=== PATIENT | male | born 1950 | race Caucasian/White ===

== ENCOUNTER 2017-07-05 08:00 | Inpatient (IN) | payer OTHER, MEDICARE ==
[~2017-07-05] VITALS: Ht 170.2 cm; Wt 83.7 kg
[2017-07-31] MEDS ORDERED: GABA100C4 PO (11:57)
[2017-07-31] MEDS ORDERED: BUME2TAB PO (11:57)
[2017-07-31] MEDS ORDERED: CARV12.5 PO (11:57)
[2017-07-31] MEDS ORDERED: ARMO60TA PO (11:57)
[2017-07-31] MEDS ORDERED: NOVO7030P2 SQ (11:57)
[2017-07-31] MEDS ORDERED: PANT20TA2 PO (11:57)
[2017-07-31] MEDS ORDERED: COQ-100C5 PO (11:57)
[2017-07-31] MEDS ORDERED: POTA-243 PO (11:57)
[2017-08-02] MEDS ORDERED: SODIUM CHLORID 0.9% 500 ML IV PRN (08:15)
[2017-08-02] MEDS ORDERED: METOPROLOL TARTRATE 25 MG TAB PO PRN (08:15)
[2017-08-02] MEDS ORDERED: CHLORHEXIDINE GLUCONATE 2 % 1 PACK (2 CLOTHS) TOPICAL PRN (08:15)
[2017-08-02] MEDS ORDERED: LACTATED RINGER'S 1000 ML IV PRN (08:15)
[2017-08-02] MEDS ORDERED: INSULIN HUMAN REGULAR 1,000 UNITS/10 ML VIAL SQ PRN (08:15)
[2017-08-02] MEDS ORDERED: POVIDONE IODINE 5% (ANTISEPSIS KIT) 4 APPLICATIONS EACH NARE PRN (08:15)
[2017-08-02] MEDS ORDERED: IOHEXOL 300 MG/ML 50 ML BTL (for RAD DIAG) OTHER ONE (08:32)
[2017-08-02] MEDS ORDERED: PROTAMINE SULFATE 50 MG/5 ML VIAL ONE (08:33)
[2017-08-02] MEDS ORDERED: HEPARIN SODIUM - IV 10,000 UNITS/10 ML VIAL ONE (08:33)
[2017-08-02] MEDS ORDERED: BUPIVACAINE HCL PF 0.5% 30 ML VIAL ONE (08:33)
[2017-08-02] MEDS ORDERED: HEPARIN-NS/PF INJ 1,000 ML ONE (08:34)
[2017-08-02] MEDS ORDERED: THROMBIN (TOPICAL) 20,000 UNIT SPRAY KIT ONE (08:34)
[2017-08-02] MEDS ORDERED: LIDOCAINE HCL 1% PF 5 ML AMPULE OTHER ONE (08:35)
[2017-08-02] MEDS ORDERED: PROPOFOL 200 MG/20 ML AMP IV ONE (08:35)
[2017-08-02] MEDS ORDERED: PHENYLEPH/NS 1000 MCG/10 ML SYR IV ONE (08:35)
[2017-08-02] MEDS ORDERED: SODIUM CHLOR 0.9% 250 ML INJ 250 ML IV ONE (08:35)
[2017-08-02] MEDS ORDERED: DEXAMETHASONE SOD PHOS 4 MG/ML VIAL IV ONE (08:35)
[2017-08-02] MEDS ORDERED: GLYCOPYRROLATE 1 MG/5 ML SYRINGE IV PUSH ONE (08:35)
[2017-08-02] MEDS ORDERED: SODIUM CHLORID 0.9% 500 ML INJ 500 ML IV ONE (08:35)
[2017-08-02] MEDS ORDERED: ONDANSETRON HCL 4 MG/2 ML VIAL IV PUSH ONE (08:35)
[2017-08-02] MEDS ORDERED: NEOSTIGMINE 3 MG/3 ML SYR IV ONE (08:35)
[2017-08-02] MEDS ORDERED: ROCURONIUM INJ 50 MG/5 ML SYRINGE IV PUSH ONE (08:35)
[2017-08-02] MEDS ORDERED: ePHEDrine/NS 25 MG/5 ML SYR IV ONE (08:35)
--- NOTE | 2017-08-02 08:54 | HHI.HP ---
History of Present Illness Chief Complaint: L UE tissue loss, AVF History of Present Illness 67 yo male with ESRD getting HD MWF via L UE access (brachiobasilic) and L 3rd digit tissue loss. Per him and his , has had recent trouble with HD in terms of flow rates. Past/Family/Social History Past Medical History ESRD DM ESRD CHF CAD Past Surgical History CABG with mitral valve pacer L BB AVF Social History nonsmoker Family History [place] Home Medications Reported Medications Coenzyme Q10 (Ubidecarenone) (Coq-10 Tr) 100 Mg Cap, 200 MG PO DAILY 07/31/17 Insulin Human Isophane-Regular 70-30 Inj (Novolin 70-30 Inj) 1,000 Unit/10 Ml Vial, 12 UNITS SQ BIDAC for Blood Sugar Management, ML 0 Refills 07/31/17 Thyroid ([place] Thyroid) 60 Mg Tab, 60 MG PO BID for Thyroid Supplement, #30 TAB 0 Refills 07/31/17 Pantoprazole (Pantoprazole) 20 Mg Tab, 20 MG PO DAILY for Reflux, #30 TAB 0 Refills 07/31/17 Bumetanide (Bumetanide) 2 Mg Tab, 2 MG PO DAILY, TAB 0 Refills 07/31/17 Carvedilol (Coreg) 12.5 Mg Tab, 12.5 MG PO BID, #60 TAB 0 Refills 07/31/17 Gabapentin (Gabapentin) 100 Mg Cap, 100 MG PO TID, #90 CAP 0 Refills 07/31/17 Discontinued Reported Medications Potassium Chloride ER (Klor-Con 10) 10 Meq Tab, 20 MEQ PO DAILY for Electrolyte Replacement, #1 TAB 0 Refills 07/31/17 Alpha-Lipoic Acid (Thioctic Ac (Lipoic Acid) 150 Mg Cap, 300 MG PO BID 02/12/13 B-Complex W/ Folic Acid (B Complex) Tab, 1 CAP PO DAILY 02/12/13 Cefazolin (Ancef) 2 Gm Margie, 2 GM IV BID 02/12/13 Hydrocodone/Acetaminophen 7.5 mg/325 mg (Hydrocodone/Acetaminophen 7.5 mg/325 mg ) 7.5 Mg/325 Mg Tab, 1 TAB PO Q4HPRN 01/30/13 Ferrous Sulfate (Ferrous Sulfate) 325 Mg Tab, 325 MG PO DAILY 01/30/13 Carvedilol (Coreg) 12.5 Mg Tab, 25 MG PO BID 01/03/13 Thyroid ([place] Thyroid) 15 Mg Tab, 60 MG OR DAILY 01/03/13 Potassium Chloride Microencaps (Klor-Con M20) 20 Meq Tab, 20 MEQ PO DAILY Y 01/03/13 Tramadol Hcl (Tramadol Hcl) 50 Mg Tab, 50 MG PO Q4-6HPRN 01/03/13 Gabapentin (Gabapentin) 300 Mg Cap, 300 MG PO QID 01/03/13 Insulin Human Lispro (Humalog Insulin Supplemental Scale) 100 Units/Ml Inj, 1 UNITS .XX SLIDING SCALE TID 01/03/13 Insulin Human NPH (Novolin N) 100 Units/Ml Inj, 20 UNITS SQ BIDAC, ML 01/03/13 Bumetanide (Bumex) 1 Mg Tab, 1 MG PO PRN 01/03/13 Coenzyme Q10 (Ubidecarenone) (Coenzyme Q-10 High Potenc) 200 Mg Cap, 200 MG PO DAILY 01/03/13 Losartan Potassium (Cozaar) 100 Mg Tab, 100 MG PO DAILY 01/03/13 Coded Allergies: corn (Unverified Allergy, Mild, 05/29/17) egg (Unverified Allergy, Mild, 08/02/17) wheat (Unverified Allergy, Mild, 05/29/17) adhesive (Unverified Adverse Reaction, Severe, SKIN BREAKDOWN/ULCERS, ) Uncoded Allergies: MSG (Allergy, Intermediate, bowel problems, 08/02/17) Review of Systems Constitutional: DENIES: Fever Cardiovascular: DENIES: Chest pain Physical Exam Vitals/I&O Date Time Temp Pulse Resp B/P (MAP) Pulse Ox O2 Delivery O2 Flow Rate FiO2 08/02/17 07:50 98.6 62 18 151/61 (91) 100 Neuro: awake, alert, [place] HEENT: NC/AT Neck: no JVD Heart: reg rate, no M Lungs: clear B Abdomen: soft, NT Vascular: L UE weak thrill and healed medial UE incision L 3rd digit tissue loss Laboratory Tests Test 08/02/17 08:00 Potassium Level 5.5 Caprini VTE Risk Assessment Caprini VTE Risk Assessment: Mod/High Risk (score >= 2) Caprini Risk Assessment Model Point Value = 1 Point Value = 2 Point Value = 3 Point Value = 5 Age 41-60 Minor surgery BMI > 25 kg/m2 Swollen legs Varicose veins or History of unexplained or recurrent spontaneous Oral contraceptives or hormone replacement Sepsis (< 1 month) Serious lung disease, including pneumonia (< 1 month) Abnormal pulmonary function Acute myocardial infarction Congestive heart failure (< 1 month) History of inflammatory bowel disease Medical patient at bed rest Age 61-74 Arthroscopic surgery Major open surgery (> 45 min) Laparoscopic surgery (> 45 min) Malignancy Confined to bed (> 72 hours) Immobilizing plaster cast Central venous access Age >= 75 History of VTE Family history of VTE Factor V Leiden Prothrombin [id number] Lupus anticoagulant Anticardiolipin antibodies Elevated serum homocysteine Heparin-induced thrombocytopenia Other congenital or acquired thrombophilia Stroke (< 1 month) Elective arthroplasty Hip, pelvis, or leg fracture Acute spinal cord injury (< 1 month) Prophylaxis Regimen Total Risk Factor Score Risk Level Prophylaxis Regimen 0-1 Low Early ambulation 2 Moderate Order ONE of the following: *Sequential Compression Device (SCD) *Heparin 5000 units SQ BID 3-4 Higher Order ONE of the following medications: *Heparin 5000 units SQ TID *Enoxaparin/Lovenox 40 mg SQ daily (WT < 150 kg, CrCl > 30 mL/min) *Enoxaparin/Lovenox 30 mg SQ daily (WT < 150 kg, CrCl > 10-29 mL/min) *Enoxaparin/Lovenox 30 mg SQ BID (WT < 150 kg, CrCl > 30 mL/min) AND/OR *Sequential Compression Device (SCD) 5 or more Highest Order ONE of the following medications: *Heparin 5000 units SQ TID (Preferred with Epidurals) *Enoxaparin/Lovenox 40 mg SQ daily (WT < 150 kg, CrCl > 30 mL/min) *Enoxaparin/Lovenox 30 mg SQ daily (WT < 150 kg, CrCl > 10-29 mL/min) *Enoxaparin/Lovenox 30 mg SQ BID (WT < 150 kg, CrCl > 30 mL/min) AND *Sequential Compression Device (SCD) Assessment and Plan Plan Likely access-related hand ischemia Weak access I talked with the patient and his - given weak thrill and unreliable access , may not warrant DRIL. Will start with angiogram of L UE. Will discuss results with patient and plan next stage (definitive surgery) then. To O Discharge Planning maybe later today [phone] Issa Jansen MD Aug 02, 2017 08:54
[2017-08-02] MEDS ORDERED: VANCOMYCIN HCL 1000 MG VIAL ONE (09:06)
[2017-08-02] MEDS ORDERED: IOHEXOL IV ONE (10:07)
--- NOTE | 2017-08-02 10:24 | HHI.PR ---
Immediate Post Op Note Procedure Date: Aug 02, 2017 Pre Op Diagnosis: Failing L UE AVF, access-related hand ischemia Post Op Diagnosis: same Surgeon: Issa Jansen Iron Bender(s): none Procedure: Thoracic aortogram w/ L UE angiogram Findings: 1. Proximal high grade stenosis 2. reasonable forearm vasculature Additional Information: Pt needs access revision with basilic transposition and DRIL. Discussed with and will plan for Sunday. Needs HD catheter prior. Complications: none Specimen(s) removed: none Estimated blood loss: 10mL Anesthesia: General Drains: None Fluids: 550mL IVF Patient to: PACU Patient Condition: Good Implant/Devices: SEE IMPLANT LOG (if applicable) Date/Time of Procedure: SEE SURGICAL CARE RECORD Issa Jansen MD Aug 02, 2017 10:24
--- NOTE | 2017-08-02 11:13 | MP ---
cc: ISSA JANSEN MD DATE OF SURGERY 08/02/2017 PREOPERATIVE DIAGNOSIS Access-related hand ischemia, failing fistula left upper extremity. POSTOPERATIVE DIAGNOSIS Access-related hand ischemia, failing fistula left upper extremity. PROCEDURE Thoracic aortogram with left upper extremity angiogram. ATTENDING SURGEON MEDICATIONS Issa Jansen MD ANESTHESIA General. INDICATIONS Mr. Hernandez is a gentleman who has a left brachiobasilic non-transposed fistula that has a weak thrill and the patient has access-related hand ischemia with an ulcer on the tip of his third digit. He is taken to the operating room for angiographic evaluation and definitive treatment. There is no prior catheter-based imaging available for my review. DESCRIPTION OF PROCEDURE Informed consent was obtained from the patient. He was taken to the operating room, placed supine on the operating room table and appropriate time-out was taken to insure the patient's identity, the operative site and the planned procedure. 1 gram of vancomycin was initiated prior to the skin incision and will be discontinued after a single preoperative dose. Everyone in the room agreed with the time-out and we proceeded. His bilateral groins and left arm were prepped and draped. A 21-gauge micropuncture needle was used to access the right common femoral artery. This was exchanged using Seldinger technique through a micropuncture sheath through which a 0.035 Glidewire was introduced. The micropuncture sheath was exchanged for a 5-[place] sheath. The patient was systemically heparinized with 3000 units of IV heparin. The Glidewire was advanced to the ascending aorta and pigtail catheter was placed over this. Thoracic aortogram was obtained. The Glidewire was reintroduced and the pigtail catheter was exchanged for a vertebral catheter and the vertebral catheter was used to selectively catheterize the left subclavian, axillary and proximal brachial arteries. The left upper extremity aortogram was obtained. The wire, catheter and sheath were removed and the groin was closed with AngioSeal. INTERPRETATION OF IMAGES The patient has a patent three-vessel arch with patent axillary, subclavian and brachial arteries. There is a brachial artery-based fistula which has stented outflow but no outflow stenosis. At the proximal aspect of the fistula there was a high-grade stenosis. The patient's forearm has ulnar artery dominance. MD RHONDA Dueñas/SSB /10:32 AM /10:52 AM
[2017-08-02 12:00] VITALS: BP 106/57; PULSE 60; RESP 20; TEMP 97; O2SAT 94
[2017-08-02] MEDS ORDERED: DO NOT ADM ANY ANTICOAGULANT DRUGS PRN (13:00)
== END 2017-08-02 13:03 | disposition home or self-care (01) | DRG 314 ==
LOC: HSDI 08-02 07:19
PROVIDERS: ADMIT Surgery; ATTEND Surgery
PROC: B31J1ZZ Fluoroscopy of Left Upper Extremity Arteries using Low Osmolar Contrast (ICD-10-PCS; 2017-08-02)
PROC: B3101ZZ Fluoroscopy of Thoracic Aorta using Low Osmolar Contrast (ICD-10-PCS; principal; 2017-08-02 08:56)
DX: T82.898A Other specified complication of vascular prosthetic devices, implants and grafts, initial encounter (principal); N18.6 End stage renal disease; E11.22 Type 2 diabetes mellitus with diabetic chronic kidney disease; L98.499 Non-pressure chronic ulcer of skin of other sites with unspecified severity; I25.10 Atherosclerotic heart disease of native coronary artery without angina pectoris; I50.9 Heart failure, unspecified; Z95.1 Presence of aortocoronary bypass graft; Y82.8 Other medical devices associated with adverse incidents
CPT/HCPCS: 75710; 82948; 84132; C1769; J1100; J1644; J2370; J2405; J2710; J2720; J3010; J3370; J7040; J7050; Q9967

== ENCOUNTER → 2017-07-31 | Outpatient (CLI) | payer OTHER ==
[~2017-07-31] MED LIST: ARMO60TA PO; B COTAB3 PO; BUME1TAB PO; BUME2TAB PO; CARV12.5 PO; CEFA2SOL IV; COEN200C4 PO; COQ-100C5 PO; CORE12.5 PO; COZA100T PO; FERR324T4 PO; GABA100C4 PO; GABA300C3 PO; HUMALOGP; HYDR-3580 PO; KLOR20TA6 PO; LIPO150C2 PO; NOVO7030P2 SQ; NOVONP2 SQ; PANT20TA2 PO; POTA-243 PO; THYR15 OR; TRAM50TA PO
[2017-07-31 13:02] LABS: HEMATOCRIT 30.7 % (39.0-51.0); MEAN CELL VOLUME 91.6 FL (80.0-100.0); MEAN CORPUSCULAR HEMOGLOBIN 29.8 PG (27.0-34.0); MEAN CORPUSCULAR HGB CONC 32.6 % (32.0-36.0); PLATELET COUNT 156 TH/MM3 (150-450); RED BLOOD COUNT 3.35 MIL/MM3 (4.50-5.90); RED CELL DISTRIBUTION WIDTH 17.7 % (11.6-17.2); REVIEW FLAG FINAL; WHITE BLOOD COUNT 7.2 TH/MM3 (4.0-11.0)
--- NOTE | 2017-07-31 13:08 | RADRPT ---
EXAM DATE/TIME: 07/31/2017 12:26 [place] COMPARISON: CHEST PA & LAT, June 09, 2012, 9:10. INDICATIONS : Evaluate for pneumonia, pneumothorax, or communicable disease. Pre op for upper extremity revasculari zation. MEDICAL HISTORY : Myocardial infarction. Congestive heart failure. Renal disease. SURGICAL HISTORY : CABG. Pacemaker. Renal stents. Mitral valve replacement. Removal of sternal wires ENCOUNTER: Initial ACUITY: 1 day PAIN SCORE: 0/10 LOCATION: chest FINDINGS: PA and obvious of the chest show blunting of the right costophrenic angle with consolidation involvin g the basilar segments of the right lower lobe. This is new from the prior study. Left lung is clear. Left-sided pacing device noted. Heart is mildly enlarged. CONCLUSION: 1. Right pleural effusion with right lower lobe consolidation. Iván Clarke Jr., MD on July 31, 2017 at 13:06 Board Certified Radiologist. This report was verified electronically.
[2017-07-31 13:11] LABS: BICARBONATE 21.8 MEQ/L (21.0-32.0); POTASSIUM 5.5 MEQ/L (3.5-5.1)
[2017-07-31 13:15] LABS: APTT (PATIENT) 31.1 SEC (24.3-30.1); PROTHROMBIN TIME - PATIENT 11.4 SEC (9.8-11.6)
--- NOTE | 2017-08-01 14:24 | EKG ---
Date Performed: 07/31/2017 Time Performed: 11:41:32 PTAGE: 67 years EKG: ELECTRONIC VENTRICULAR PACEMAKER ABNORMAL RHYTHM ECG PREVIOUS TRACING : 02/13/2013 13.08 DOCTOR: Levi Machado Interpretating Date/Time 08/01/2017 14:19:03
== END ==
LOC: CPRE 11:08
PROVIDERS: ATTEND Surgery
DX: Z01.810 Encounter for preprocedural cardiovascular examination (principal); N18.6 End stage renal disease; T82.898A Other specified complication of vascular prosthetic devices, implants and grafts, initial encounter; Z01.812 Encounter for preprocedural laboratory examination; Z01.818 Encounter for other preprocedural examination; X58.XXXA Exposure to other specified factors, initial encounter
CPT/HCPCS: 36415; 71020; 80048; 85027; 85610; 85730; 86850; 86900; 86901; 93005

== ENCOUNTER 2017-08-07 06:26 | Inpatient (IN) | payer OTHER, MEDICARE ==
[~2017-08-07] VITALS: Ht 170.2 cm; Wt 84.5 kg
[2017-08-07] VITALS (7 sets, daily range): BP systolic 101–106; BP diastolic 50–56; PULSE 59–74; RESP 16–18; TEMP 97.1–98.1; O2SAT 89–100
[~2017-08-07 06:26] MED LIST changes: -B COTAB3 PO; -BUME1TAB PO; -CEFA2SOL IV; -COEN200C4 PO; -CORE12.5 PO; -COZA100T PO; -FERR324T4 PO; -GABA300C3 PO; -HUMALOGP; -HYDR-3580 PO; -KLOR20TA6 PO; -LIPO150C2 PO; -NOVONP2 SQ; -POTA-243 PO; -THYR15 OR; -TRAM50TA PO
[2017-08-07] MEDS ORDERED: POVIDONE IODINE 5% (ANTISEPSIS KIT) 4 APPLICATIONS EACH NARE PRN (07:00)
[2017-08-07] MEDS ORDERED: METOPROLOL TARTRATE 25 MG TAB PO PRN (07:00)
[2017-08-07] MEDS ORDERED: CHLORHEXIDINE GLUCONATE 2 % 1 PACK (2 CLOTHS) TOPICAL PRN (07:00)
[2017-08-07] MEDS ORDERED: LACTATED RINGER'S 1000 ML IV PRN (07:00)
[2017-08-07] MEDS ORDERED: INSULIN HUMAN REGULAR 1,000 UNITS/10 ML VIAL SQ PRN (07:00)
[2017-08-07] MEDS ORDERED: SODIUM CHLORID 0.9% 500 ML IV PRN (07:00)
[2017-08-07] MEDS ORDERED: PROTAMINE SULFATE 50 MG/5 ML VIAL ONE (07:00)
[2017-08-07] MEDS ORDERED: HEPARIN SODIUM - IV 10,000 UNITS/10 ML VIAL ONE (07:00)
[2017-08-07] MEDS ORDERED: HEPARIN-NS/PF INJ 500 ML ONE (07:01)
[2017-08-07] MEDS ORDERED: BUPIVACAINE HCL PF 0.5% 30 ML VIAL ONE (07:01)
[2017-08-07] MEDS ORDERED: THROMBIN (TOPICAL) 20,000 UNIT SPRAY KIT ONE (07:01)
--- NOTE | 2017-08-07 08:44 | PD.VS.PN ---
Pre-operative Note Pre-operative diagnosis: 1. Failing L UE access 2. L UE access-related hand ischemia Planned procedure: 1. L UE Access revision 2. L UE DRIL Interval History: Since the angiogram , he has undergone placement of a tunneled catheter and regular HD. No other changes. Labs: Laboratory Results Test 08/07/17 07:15 Potassium Level 5.3 MEQ/L (3.5-5.1) Blood: T&S Imaging: Reviewed. Plan for L UE Access revision and DRIL. Orders: NPO VANC 1g IV OCTOR Post-operative destination: PACU then CPCU Operative site marked: Yes Consent: Informed consent has been obtained from Hola Hernandez. I have explained the procedure in detail and discussed the risks, benefits, and potential complications. All questions have been answered. Patient contact information: [phone] Issa Jansen MD Aug 07, 2017 08:44
[2017-08-07] MEDS ORDERED: GLUCAGON 1 MG/ML VIAL OTHER PRN (08:45)
[2017-08-07] MEDS ORDERED: DEXTROSE 50% IN WATER 50 ML VIAL(D50) IV PUSH PRN (08:45)
[2017-08-07] MEDS ORDERED: MORPHINE SULFATE 4 MG/ML INJ IV PUSH PRN (08:45)
[2017-08-07] MEDS ORDERED: HYDROmorphone HCL 2 MG TAB PO PRN (08:45)
[2017-08-07] MEDS ORDERED: COENZYME Q10 200 MG PO SCH (09:00)
[2017-08-07] MEDS ORDERED: VANCOMYCIN HCL 1000 MG VIAL ONE (09:01)
[2017-08-07 09:14] LABS: BICARBONATE 22.6 MEQ/L (21.0-32.0); POTASSIUM 5.3 MEQ/L (3.5-5.1)
[2017-08-07] MEDS: ASPIRIN 325 MG TAB PO SCH (11:00)
[2017-08-07] MEDS: INSULIN ASPART SUPPLEMENTAL SCALE SQ SCH ×2 (12:00→21:00)
--- NOTE | 2017-08-07 12:16 | HHI.PR ---
cc: Gerry Johnson MD Immediate Post Op Note Procedure Date: Aug 07, 2017 Pre Op Diagnosis: 1. Failing L UE AVF 2. Access related hand ischemia Post Op Diagnosis: 1. Failing L UE AVF 2. Access-related hand ischemia Surgeon: Issa Jansen Access Nurse(s): none Procedure: 1. AVF revision (transposition of AVF) 2. DRIL with R GSV Findings: Good thrill after AVF Strong Doppler signals radial and ulnar Complications: none Specimen(s) removed: none for pathology Estimated blood loss: 150mL Anesthesia: General Drains: None Fluids: 300mL IVF Patient to: PACU Patient Condition: Good Date/Time of Procedure: SEE SURGICAL CARE RECORD Issa Jansen MD Aug 07, 2017 12:16
[2017-08-07] MEDS ORDERED: DO NOT ADM ANY ANTICOAGULANT DRUGS PRN (12:29)
[2017-08-07] MEDS ORDERED: *ONDANSETRON 4 MG VIAL PERIprocedural Use ONLY ONE (12:45)
[2017-08-07] MEDS: GABAPENTIN 100 MG CAP PO SCH ×3 (13:00→20:18)
[2017-08-07] MEDS: CARVEDILOL 12.5 MG TAB PO SCH ×2 (14:11→21:00)
[2017-08-07] MEDS: PANTOPRAZOLE SOD 20 MG DELAYED RELEASE TAB PO SCH (14:12)
[2017-08-07] MEDS: BUMETANIDE 1 MG TAB PO SCH (14:12)
[2017-08-07] MEDS ORDERED: ONDANSETRON HCL 4 MG/2 ML VIAL IV PUSH PRN ×2 (14:15→17:45)
[2017-08-07] MEDS ORDERED: SODIUM CHLOR 0.9% 1000 ML INJ 1,000 ML OTHER PRN ×2 (17:32)
[2017-08-07] MEDS ORDERED: SODIUM CHLOR 0.9% 1000 ML INJ 1,000 ML IV PRN (17:32)
--- NOTE | 2017-08-07 17:32 | PD.CONS ---
HPI Service Nephrology Consult Requested By Dr. Jansen Reason for Consult ESRD on HD Primary Care Physician Meir Oliver, DO History of Present Illness The patient is a 67 yo [place] male who came in to this facility for L AVF revision with Dr. Jansen 2/ to Steal Syndrome. Is a dialysis patient in [place] whose regular HD is MWF. He did HD yesterday. Seen during HD and seems to be tolerating well. Using RIJ PermCath. BP is marginal at 93/56, but says this is his typical BP. PMHx includes DM, HTN, CHF s/p AICD, CAD. Says he does receive Zemplar and Epogen during his HD sessions. (Linda Baltazar) Review of Systems Constitutional: COMPLAINS OF: Fatigue (Linda Baltazar) Past Family Social History Allergies: Coded Allergies: egg (Unverified Allergy, Mild, 08/07/17) adhesive (Unverified Adverse Reaction, Severe, SKIN BREAKDOWN/ULCERS, ) Uncoded Allergies: MSG (Allergy, Intermediate, bowel problems, 08/02/17) Past Medical History ESRD on HD MWF Steal Syndrome DM HTN Anemia of Renal Disease CHF CAD Past Surgical History L AVF placement with revision CABG x4 vessel Mitral valvuloplasty AICD placement Reported Medications Coq-10 Tr (Coenzyme Q10 (Ubidecarenone)) 100 Mg Cap 200 Mg PO DAILY Novolin 70-30 Inj (Insulin Human Isoph/Insulin Regular) 1,000 Unit/10 Ml Vial 12 Units SQ BIDAC [place] Thyroid (Thyroid) 60 Mg Tab 60 Mg PO BID Pantoprazole (Pantoprazole Sodium) 20 Mg Tab 20 Mg PO DAILY Bumetanide 2 Mg Tab 2 Mg PO DAILY Coreg (Carvedilol) 12.5 Mg Tab 12.5 Mg PO BID Gabapentin 100 Mg Cap 100 Mg PO TID Active Ordered Medications Current Medications Medications (Trade) Dose Ordered Sig/Renny Route Start Time Stop Time Status Last Admin Lactated Ringer's 1,000 ml @ 30 mls/hr Q24H PRN IV 08/07/17 07:00 08/10/17 06:59 08/07/17 07:40 Sodium Chloride 500 ml @ 30 mls/hr [id number] PRN IV 08/07/17 07:00 08/10/17 06:59 (Lopressor) 25 mg RETAIL LOSS PREVENTION INVESTIGATOR PRN PO 08/07/17 07:00 08/10/17 06:59 (Betadine 5% Antisepsis Kit) 1 applic RETAIL LOSS PREVENTION INVESTIGATOR PRN EACH NARE 08/07/17 07:00 08/10/17 06:59 08/07/17 07:50 (Chlorhexidine 2% Cloth) 3 pack RETAIL LOSS PREVENTION INVESTIGATOR PRN TOPICAL 08/07/17 07:00 08/10/17 06:59 (NovoLIN R INJ) See Protocol Table ... RETAIL LOSS PREVENTION INVESTIGATOR PRN SQ 08/07/17 07:00 08/10/17 06:59 (Roxicodone) 5 mg Q4H PRN PO 08/07/17 08:45 08/07/17 14:12 (Dilaudid) 2 mg Q4H PRN PO 08/07/17 08:45 (Morphine Inj) 2 mg Q1H PRN IV PUSH 08/07/17 08:45 (Heparin Inj) 5,000 units Q8H SQ 08/08/17 11:00 (Bumetanide) 2 mg DAILY PO 08/07/17 10:30 08/07/17 14:12 (Coreg) 12.5 mg BID PO 08/07/17 11:00 08/07/17 14:11 (Neurontin) 100 mg TID PO 08/07/17 10:30 08/07/17 14:11 (Protonix) 20 mg DAILY PO 08/07/17 09:00 08/07/17 14:12 ([place] Thyroid) 60 mg DAILY@0600 PO 08/07/17 06:00 (Aspirin) 325 mg DAILY PO 08/07/17 11:00 (D50w (Vial) Inj) 50 ml UNSCH PRN IV PUSH 08/07/17 08:45 (Glucagon Inj) 1 mg UNSCH PRN OTHER 08/07/17 08:45 (NovoLOG SUPPLEMENTAL SCALE) 1 ACHS SLIDING SCALE SQ 08/07/17 12:00 (Zofran Inj) 4 mg Q6H PRN IV PUSH 08/07/17 14:15 Miscellaneous Information ALL NURSING DEPARTME... UNSCH PRN .XX 08/07/17 12:29 08/08/17 12:28 Family History Mother and father with DM Social History Lives in [place] Non-smoker No EtOH No illicits (Linda Baltazar) Physical Exam Vital Signs Vital Signs Date Time Temp Pulse Resp B/P (MAP) Pulse Ox O2 Delivery O2 Flow Rate FiO2 08/07/17 15:34 97.1 60 16 105/55 (72) 94 08/07/17 13:31 63 18 106/56 (73) 93 08/07/17 13:30 97.6 61 16 110/58 (75) 100 Nasal Cannula 2 08/07/17 13:15 60 16 111/56 (74) 100 Nasal Cannula 2 08/07/17 13:00 60 16 118/59 (78) 100 Nasal Cannula 2 08/07/17 12:45 60 16 116/63 (80) 98 Nasal Cannula 2 08/07/17 12:28 97.6 61 16 118/58 (78) 100 Nasal Cannula 2 08/07/17 07:01 97.6 63 20 115/66 (82) 95 Physical Exam GENERAL: Seen during HD. NAD SKIN: Warm and dry. HEAD: Atraumatic. Normocephalic. EYES: Pupils equal and round. No scleral icterus. No injection or drainage. ENT: No nasal bleeding or discharge. Mucous membranes pink and moist. NECK: Trachea midline. No JVD. CARDIOVASCULAR: Regular rate and rhythm. RESPIRATORY: No accessory muscle use. Clear to auscultation. Breath sounds equal bilaterally. GASTROINTESTINAL: Abdomen soft, non-tender, nondistended. Hepatic and splenic margins not palpable. MUSCULOSKELETAL: Extremities without clubbing, cyanosis, 1+ pitting BLE pretibial. NEUROLOGICAL: Awake and alert. Normal speech. PSYCHIATRIC: Appropriate mood and affect; insight and judgment normal. Laboratory Laboratory Tests Test 08/07/17 07:15 Blood Urea Nitrogen 33 Creatinine 6.19 Random Glucose 129 Calcium Level 8.2 Sodium Level 135 Potassium Level 5.3 Chloride Level 102 Carbon Dioxide Level 22.6 Anion Gap 10 Estimat Glomerular Filtration Rate 9 (Linda Baltazar) Result Diagram: 08/07/17 0715 Assessment and Plan Problem List: (1) ESRD (end stage renal disease) on dialysis ICD Codes: N18.6 - End stage renal disease; Z99.2 - Dependence on renal dialysis Plan: Pt seen during HD today. He is to continue on MWF schedule resuming as an outpatient as he will likely be discharged tomorrow. Will hold the patient's Bumetanide as he says he doesn't make much urine anymore and BP marginal. Medications should be adjusted for the patient's ESRD. Avoid gadolinium. (2) Diabetes mellitus ICD Codes: E11.9 - Type 2 diabetes mellitus without complications Plan: Mgmt per primary (3) Cardiomyopathy ICD Codes: I42.9 - Cardiomyopathy, unspecified (4) Steal syndrome dialysis vascular access ICD Codes: T82.898A - Other specified complication of vascular prosthetic devices, implants and grafts, initial encounter Plan: s/p L AVF revision 08/07 (Linda Baltazar) Assessment and Plan The exam, history, and the medical decision-making described in the above note were completed with the assistance of the PA-C. I reviewed and agree with the findings presented. (Gerry Johnson MD) Linda Baltazar Aug 07, 2017 17:32 Gerry Johnson MD Aug 08, 2017 15:45
[2017-08-07] MEDS ORDERED: NITROGLYCERIN 0.4 MG SL 25 TABS/BTL SL PRN (17:45)
[2017-08-07] MEDS ORDERED: SODIUM CHLORIDE 0.9% FLUSH 10 ML FLUSH IV FLUSH PRN (17:45)
[2017-08-07] MEDS ORDERED: HEPARIN SODIUM - IV 10,000 UNITS/10 ML VIAL IV FLUSH PRN (17:45)
[2017-08-07] MEDS ORDERED: GELATIN 12 MM/7 MM FOAM TOP PRN (17:45)
[2017-08-07] MEDS ORDERED: diphenhydrAMINE HCL 25 MG CAP PO PRN (17:45)
[2017-08-07] MEDS ORDERED: MANNITOL 12.5 GM/50 ML VIAL IV PRN (17:45)
[2017-08-07] MEDS ORDERED: cloNIDine HCL 0.1 MG TAB PO PRN (17:45)
[2017-08-07] MEDS ORDERED: ACETAMINOPHEN 325 MG TAB PO PRN (17:45)
[2017-08-07] MEDS: GENTAMICIN SULFATE (DIALYSIS USE ONLY) 20 MG/2 ML VIAL OTHER PRN (19:28)
[2017-08-07] MEDS: HEPARIN SODIUM - IV 10,000 UNITS/10 ML VIAL PRN (19:28)
[2017-08-07] MEDS: ALBUMIN 25% INJ 100 ML IV PRN (19:28)
[2017-08-08] VITALS (27 sets, daily range): BP systolic 82–106; BP diastolic 45–55; PULSE 59–77; RESP 16–18; TEMP 98–98.6; O2SAT 98–100
[2017-08-08 04:35] LABS: HEMATOCRIT 27.9 % (39.0-51.0); MEAN CORPUSCULAR HEMOGLOBIN 30.2 PG (27.0-34.0); MEAN CORPUSCULAR HGB CONC 32.8 % (32.0-36.0); PLATELET COUNT 157 TH/MM3 (150-450); RED BLOOD COUNT 3.04 MIL/MM3 (4.50-5.90); RED CELL DISTRIBUTION WIDTH 16.8 % (11.6-17.2); REVIEW FLAG FINAL; WHITE BLOOD COUNT 7.4 TH/MM3 (4.0-11.0)
[2017-08-08 05:17] LABS: BICARBONATE 27.8 MEQ/L (21.0-32.0); POTASSIUM 4.5 MEQ/L (3.5-5.1)
[2017-08-08] MEDS: THYROID 60 MG TAB PO SCH (06:07)
--- NOTE | 2017-08-08 07:10 | MP ---
cc: SKYLER JANSEN MD DATE OF SURGERY 08/07/2017 PREOPERATIVE DIAGNOSIS 1. Left upper extremity failing access 2. Access related hand ischemia POSTOPERATIVE DIAGNOSIS 1. Left upper extremity failing access 2. Access related hand ischemia PROCEDURE 1. Left upper extremity access revision (transition of brachial basilic arteriovenous fistula). 2. Left upper extremity distal revascularization, interval ligation (drilled) ATTENDING SURGEON Skyler Jansen MD ANESTHESIA General INDICATION Mr. Hernandez is an elderly gentleman with end-stage renal disease who is currently dialyzing through a right common chest catheter. He had a left brachial basilic fistula that remained in situ, but superficialized at an outside institution. He presented with tissue loss of the left third digit. Preoperative imaging suggested he had a proximal fistula stenosis and this was consistent with the patient's 's complaint of the fistula not getting adequate flow rates. After a long discussion was had with the patient, he was offered an access revision to include transposition, as well as a distal bypass to augment the perfusion of his hand. DESCRIPTION OF THE PROCEDURE Informed consent was obtained from the patient. He was taken to the operating room, placed supine on the operating table and appropriate time-out was taken to ensure the patient's identity, operative site and planned procedure. The administration of a gram of vancomycin was initiated prior to the skin incision and will be discontinued after a single preoperative dose. Vancomycin was chosen because of the patient's end-stage renal disease. Everyone in the room agreed with the time-out and we proceeded. His right leg and left arm were prepped and draped. An incision was made over the course of the brachial basilic fistula in the medial aspect of the upper arm, carried down through the subcutaneous tissue with electrocautery. The basilic vein was identified, dissected free and noted to be somewhat scarred, but it was dissected free back to the brachial artery which was dissected proximally and distally. 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 We dissected the basilic vein back to the axilla. The brachial artery was then dissected free for several centimeters proximal to the original brachial basilic arteriovenous fistula anastomosis. It was encircled with a Vesseloop. A separate incision made in the patient's right groin, carried down through the tissue with electrocautery. The saphenous vein was identified and dissected free for approximately 12 cm. Side branches were ligated with 3-0 silk. The vein was clamped proximally and distally with right angles, resected and the proximal and distal ends were oversewn with 4-0 Prolene and 3-0 silk respectively. The wound was irrigated, made hemostatic and closed with 2-0 Polysorb, 3-0 Polysorb and 4-0 Monocryl. The vein was flushed and noted to be hemostatic. A tunnel was then created over the anterior aspect of the arm and the patient was systemically heparinized with 3000 units of IV heparin. The brachial basilic fistula was clamped near its origin with a right-angle, transected and the proximal aspect was oversewn with a 4-0 Prolene suture. The [place] bulldog clamp was placed on the axillary end of the fistula and the fistula was flushed and noted to be hemostatic. It was marked for orientation and then passed through the curvilinear tunnel along the anterior aspect of the arm. Proximal and distal control of the brachial artery was obtained with profunda clamps and a longitudinal arteriotomy was made with an 11 blade and extended with [place] scissors. The fistula was spatulated and sewn end-to-side more proximally on the brachial artery thereby reciting it as well as transposing it. This anastomosis was done with running 5-0 Prolene sutures. At the completion it was flushed and noted to be hemostatic. The clamps were released and there was a nice thrill in the fistula. Just distal to this anastomosis, two 2-0 silk ties were used to ligate the brachial artery which was done without difficulty. The distal aspect of the brachial artery was clamped with a profunda clamp and a longitudinal arteriotomy was made with an 11-blade and extended with [place] scissors. The vein similarly on the proximal aspect of the brachial artery approximately 15 cm from the anastomosis, the brachial artery had been dissected free and was clamped proximally and distally with profunda clamps and a longitudinal arteriotomy was made with an 11 blade and extended with [place] scissors. The saphenous vein was then sewn end-to-side proximally with running 5-0 Prolene suture, tunneled anatomically and then sewn end-to-side distally which was functioning end-to-end since the proximal aspect of the distal anastomosis had been ligated with silk ties. Both anastomoses were done with 5-0 Prolene suture and the clamps released. At the conclusion of all the anastomoses, there was a nice thrill in the fistula and a nice palpable pulse in the drill bypass. There was a nice Doppler signal in the wrist. The heparin was reversed with protamine. The wound was irrigated, made hemostatic and closed with 2-0 Polysorb, 3-0 Polysorb and 4-0 Monocryl. The sponge and needle counts were correct at the end of the case. I was present, scrubbed and performed the entire procedure. MD RHONDA Dueñas/[place] /6:10 AM /6:48 AM
[2017-08-08] MEDS: INSULIN ASPART SUPPLEMENTAL SCALE SQ SCH ×4 (08:00→21:16)
--- NOTE | 2017-08-08 08:50 | PD.VS.PN ---
Subjective POD #: 1 Procedure(s): L UE access revision and DRIL Subjective/Hospital Course doing well, pain controlled, resting Objective Vitals/I&O Date Time Temp Pulse Resp B/P (MAP) Pulse Ox O2 Delivery O2 Flow Rate FiO2 08/08/17 07:30 17 08/08/17 07:00 70 08/08/17 07:00 98 Nasal Cannula 2.00 08/08/17 07:00 98.3 71 17 100/50 (67) 98 08/08/17 06:00 69 08/08/17 05:00 68 08/08/17 04:00 74 08/08/17 03:20 99 Nasal Cannula 2.00 08/08/17 03:20 98.6 72 16 106/55 (72) 99 08/08/17 03:00 69 08/08/17 02:00 70 08/08/17 01:00 74 08/08/17 00:00 66 08/07/17 23:00 98.1 74 16 101/50 (67) 100 08/07/17 23:00 100 Nasal Cannula 2.00 08/07/17 23:00 62 08/07/17 22:00 68 08/07/17 21:00 66 08/07/17 20:03 93 Nasal Cannula 2.00 08/07/17 20:00 97.5 68 18 105/51 (69) 89 08/07/17 20:00 89 Room Air 08/07/17 20:00 66 08/07/17 15:34 97.1 60 16 105/55 (72) 94 08/07/17 15:00 59 08/07/17 13:31 63 18 106/56 (73) 93 08/07/17 13:30 97.6 61 16 110/58 (75) 100 Nasal Cannula 2 08/07/17 13:15 60 16 111/56 (74) 100 Nasal Cannula 2 08/07/17 13:00 60 16 118/59 (78) 100 Nasal Cannula 2 08/07/17 12:45 60 16 116/63 (80) 98 Nasal Cannula 2 08/07/17 12:28 97.6 61 16 118/58 (78) 100 Nasal Cannula 2 08/08/17 08/08/17 08/08/17 07:00 15:00 23:00 Intake Total 680 ml Output Total 0 ml Balance 680 ml Exam: L UE incision ok + thrilll strong Doppler signals ulnar, radial and palmar arch R LE saphenectomy incision c/d/i Laboratory Laboratory Tests Test 08/08/17 04:21 White Blood Count 7.4 Red Blood Count 3.04 Hemoglobin 9.2 Hematocrit 27.9 Mean Corpuscular Volume 92.0 Mean Corpuscular Hemoglobin 30.2 Mean Corpuscular Hemoglobin Concent 32.8 Red Cell Distribution Width 16.8 Platelet Count 157 Mean Platelet Volume 9.2 Blood Urea Nitrogen 21 Creatinine 4.61 Random Glucose 134 Calcium Level 7.8 Sodium Level 138 Potassium Level 4.5 Chloride Level 101 Carbon Dioxide Level 27.8 Anion Gap 9 Estimat Glomerular Filtration Rate 13 Assessment and Plan Plan Looks great POD#1 Had HD yesterday 1. PT/OOB 2. Reg diet, meds 3. d/c planning Discharge Planning likely tomorrow (POD#2) Issa Jansen MD Aug 08, 2017 08:50
--- NOTE | 2017-08-08 09:33 | HHI.NPPN ---
Subjective History of Present Illness The patient is a 67 yo [place] male who came in to this facility for L AVF revision with Dr. Jansen / to Steal Syndrome. Is a dialysis patient in [place] whose regular HD is MWF. He did HD yesterday. Seen during HD and seems to be tolerating well. Using RIJ PermCath. BP is marginal at 93/56, but says this is his typical BP. PMHx includes DM, HTN, CHF s/p AICD, CAD. Says he does receive Zemplar and Epogen during his HD sessions. Interval History No verbal complaints today. Review of Systems General Constitutional: Fatigue Objective Data Data Vital Signs Date Time Temp Pulse Resp B/P (MAP) Pulse Ox O2 Delivery O2 Flow Rate FiO2 08/08/17 09:00 74 08/08/17 08:00 66 08/08/17 07:30 17 08/08/17 07:00 70 08/08/17 07:00 98 Nasal Cannula 2.00 08/08/17 07:00 98.3 71 17 100/50 (67) 98 08/08/17 06:00 69 08/08/17 05:00 68 08/08/17 04:00 74 08/08/17 03:20 99 Nasal Cannula 2.00 08/08/17 03:20 98.6 72 16 106/55 (72) 99 08/08/17 03:00 69 08/08/17 02:00 70 08/08/17 01:00 74 08/08/17 00:00 66 08/07/17 23:00 98.1 74 16 101/50 (67) 100 08/07/17 23:00 100 Nasal Cannula 2.00 08/07/17 23:00 62 08/07/17 22:00 68 08/07/17 21:00 66 08/07/17 20:03 93 Nasal Cannula 2.00 08/07/17 20:00 97.5 68 18 105/51 (69) 89 08/07/17 20:00 89 Room Air 08/07/17 20:00 66 08/07/17 15:34 97.1 60 16 105/55 (72) 94 08/07/17 15:00 59 08/07/17 13:31 63 18 106/56 (73) 93 08/07/17 13:30 97.6 61 16 110/58 (75) 100 Nasal Cannula 2 08/07/17 13:15 60 16 111/56 (74) 100 Nasal Cannula 2 08/07/17 13:00 60 16 118/59 (78) 100 Nasal Cannula 2 08/07/17 12:45 60 16 116/63 (80) 98 Nasal Cannula 2 08/07/17 12:28 97.6 61 16 118/58 (78) 100 Nasal Cannula 2 -: 08/08/17 0421 08/08/17 0421 Tubes & Lines: Perma-Cath Medication Review Current Medications Lactated Ringer's 1,000 ml @ 30 mls/hr Q24H PRN IV SEE LABEL COMMENTS Last administered on 08/07/17 07:40; Start 08/07/17 at 07:00; Stop 08/10/17 at 06 :59 Sodium Chloride 500 ml @ 30 mls/hr [id number] PRN IV SEE LABEL COMMENTS; Start at 07:00; Stop 08/10/17 at 06:59 Metoprolol Tartrate (Lopressor) 25 mg [employer] PRN PO SEE LABEL COMMENTS; Start 08/07/17 at 07:00; Stop 08/10/17 at 06:59 Povidone Iodine (Betadine 5% Antisepsis Kit) 1 applic [employer] PRN EACH NARE SEE LABEL COMMENTS Last administered on 08/07/17 07:50; Start 08/07/17 at 07: 00; Stop 08/10/17 at 06:59 Chlorhexidine Gluconate (Chlorhexidine 2% Cloth) 3 pack [employer] PRN TOPICAL SEE LABEL COMMENTS; Start 08/07/17 at 07:00; Stop 08/10/17 at 06:59 Insulin Human Regular (NovoLIN R INJ) See Protocol Table ... [employer]GER PRN SQ SEE PROTOCOL TABLE; Start 08/07/17 at 07:00; Stop 08/10/17 at 06:59 Protamine Sulfate (Protamine Sulfate Inj) 50 mg STK-MED ONCE .ROUTE Last administered on 08/07/17 11:22; Start 08/07/17 at 07:00; Stop 08/07/17 at 07 :01; Status DC Heparin Sodium (Porcine) (Heparin Inj) 10,000 units STK-MED ONCE .ROUTE Last administered on 08/07/17 10:31; Start 08/07/17 at 07:00; Stop 08/07/17 at 07 :01; Status DC Bupivacaine HCl (Marcaine Pf 0.5% Inj) 30 ml STK-MED ONCE .ROUTE ; Start at 07:01; Stop 08/07/17 at 07:02; Status DC Thrombin (Thrombin [place]) 20,000 units STK-MED ONCE .ROUTE Last administered on 08/07/17 11:09; Start 08/07/17 at 07:01; Stop 08/07/17 at 07 :02; Status DC Heparin Sodium/ Sodium Chloride 500 ml @ As Directed STK-MED ONCE .ROUTE Last administered on 08/07/17 09:21; Start 08/07/17 at 07:01; Stop 08/07/17 at 07 :02; Status DC Oxycodone HCl (Roxicodone) 5 mg Q4H PRN PO PAIN SCALE 1 TO 5 Last administered on 08/08/17 09:49; Start 08/07/17 at 08:45 Hydromorphone HCl (Dilaudid) 2 mg Q4H PRN PO PAIN SCALE 6 TO 10; Start at 08:45; Status Future Hold Morphine Sulfate (Morphine Inj) 2 mg Q1H PRN IV PUSH BREAKTHROUGH PAIN; Start 08/07/17 at 08:45; Status Future Hold Heparin Sodium (Porcine) (Heparin Inj) 5,000 units Q8H SQ Last administered on 08/08/17 11:02; Start 08/08/17 at 11:00 Bumetanide (Bumetanide) 2 mg DAILY PO Last administered on 08/08/17 09:50; Start 08/07/17 at 10:30 Carvedilol (Coreg) 12.5 mg BID PO Last administered on 08/08/17 09:49; Start 08/07/17 at 11:00 Gabapentin (Neurontin) 100 mg TID PO Last administered on 08/08/17 14:04; Start 08/07/17 at 10:30 Pantoprazole Sodium (Protonix) 20 mg DAILY PO Last administered on 08/08/17 09:48; Start 08/07/17 at 09:00 Thyroid ([place] Thyroid) 60 mg DAILY@0600 PO Last administered on 08/08/17 06 :07; Start 08/07/17 at 06:00 Non-Formulary Medication 200 mg DAILY PO ; Start 08/07/17 at 09:00; Status UNV Aspirin (Aspirin) 325 mg DAILY PO Last administered on 08/08/17 09:48; Start 08/07/17 at 11:00 Dextrose (D50w (Vial) Inj) 50 ml UNSCH PRN IV PUSH HYPOGLYCEMIA-SEE COMMENTS; Start 08/07/17 at 08:45 Glucagon (Glucagon Inj) 1 mg UNSCH PRN OTHER HYPOGLYCEMIA-SEE COMMENTS; Start 08/07/17 at 08:45 Insulin Aspart (NovoLOG SUPPLEMENTAL SCALE) 1 ACHS SLIDING SCALE SQ Last administered on 08/08/17 14:05; Start 08/07/17 at 12:00 Vancomycin HCl (Vancomycin Inj) 1,000 mg STK-MED ONCE .ROUTE Last administered on 08/07/17 09:15; Start 08/07/17 at 09:01; Stop 08/07/17 at 09:02; Status DC Ondansetron HCl (*ZOFRAN INJ PERIprocedural ONLY) 4 mg STK-MED ONCE .ROUTE Last administered on 08/07/17 12:46; Start 08/07/17 at 12:45; Stop 08/07/17 at 12:46; Status DC Ondansetron HCl (Zofran Inj) 4 mg Q6H PRN IV PUSH NAUSEA OR VOMITING; Start at 14:15 Miscellaneous Information ALL NURSING DEPARTME... UNSCH PRN .XX SEE LABEL COMMENTS; Start 08/07/17 at 12:29; Stop 08/08/17 at 12:28; Status DC Sodium Chloride 1,000 ml @ 0 mls/hr Q0M PRN OTHER For Prime & Rinse Back; Start 08/07/17 at 17:32 Heparin Sodium (Porcine) (Heparin Inj) 8,000 units UNSCH PRN IV FLUSH WITH DIALYSIS; Start 08/07/17 at 17:45 Sodium Chloride 1,000 ml @ 200 mls/hr Q5H PRN IV WITH DIALYSIS; Start at 17:32 Sodium Chloride 1,000 ml @ 0 mls/hr Q0M PRN OTHER WITH DIALYSIS; Start at 17:32 Mannitol (Mannitol Inj) 12.5 gm UNSCH PRN IV WITH DIALYSIS; Start 08/07/17 at 17:45 Albumin Human 100 ml @ 60 mls/hr UNSCH PRN IV WITH DIALYSIS Last administered on 08/07/17 19:28; Start 08/07/17 at 17:45 Sodium Chloride (NS Flush) 5 ml UNSCH PRN IV FLUSH WITH DIALYSIS; Start at 17:45 Heparin Sodium (Porcine) (Heparin Inj) UNSCH PRN .XX WITH DIALYSIS Last administered on 08/07/17 19:28; Start 08/07/17 at 17:45 Gentamicin Sulfate (Gentamicin (Dialysis) Inj) 20 mg UNSCH PRN OTHER WITH DIALYSIS Last administered on 08/07/17 19:28; Start 08/07/17 at 17:45 Ondansetron HCl (Zofran Inj) 4 mg UNSCH PRN IV PUSH WITH DIALYSIS; Start 08/07 at 17:45 Acetaminophen (Tylenol) 650 mg UNSCH PRN PO for headach, pain, temp > 101F; Start 08/07/17 at 17:45 Diphenhydramine HCl (Benadryl) 25 mg UNSCH PRN PO for hives/itching/anaphylaxis ; Start 08/07/17 at 17:45 Nitroglycerin (Nitrostat Sl) 0.4 mg UNSCH PRN SL CHEST PAIN; Start 08/07/17 at 17:45 Clonidine (Catapres) 0.1 mg UNSCH PRN PO for BP > 180/100 X 2 readings; Start 08/07/17 at 17:45 Gelatin (Gelfoam 12 Mm/7 Mm Top) 1 foam UNSCH PRN TOP SEE LABEL COMMENTS; Start 08/07/17 at 17:45 Acetaminophen (Tylenol) 650 mg Q4H PRN PO PAIN 1-10; Start 08/08/17 at 14:00 Physical Exam General Appearance: No Acute Distress, Comfortable Eyes Eye Exam: Sclera White Pulmonary Resp Exam: Clear Bilaterally, Breath Sounds Equal, No Distress Cardiology CV Exam: Regular, Normal Sinus Rhythm Gastrointestinal/Abdomen GI Exam: Soft, Non-Tender Integumentary Skin Exam: Clear, Warm Extremeties Extremities Exam: No Edema Neurologic Neuro Exam: Alert, Awake Psychiatric Psych Exam: Appropriate Responses Assessment/Plan Problem List: (1) ESRD (end stage renal disease) on dialysis ICD Codes: N18.6 - End stage renal disease; Z99.2 - Dependence on renal dialysis Plan: Status post Left upper extremity access revision (transition of brachial basilic arteriovenous fistula).. Left upper extremity distal revascularization, interval ligation (drilled). Discharge when basilar surgery decides. Patient tolerated dialysis well yesterday. Hyperkalemia has resolved. Patient is off schedule secondary to extra dialysis yesterday. Next dialysis could be scheduled for Sunday as an outpatient or in house if patient remains as an inpatient. Medications should be adjusted for the patient's ESRD. Avoid gadolinium. (2) Diabetes mellitus ICD Codes: E11.9 - Type 2 diabetes mellitus without complications Plan: Mgmt per primary (3) Cardiomyopathy ICD Codes: I42.9 - Cardiomyopathy, unspecified (4) Steal syndrome dialysis vascular access ICD Codes: T82.898A - Other specified complication of vascular prosthetic devices, implants and grafts, initial encounter Plan: s/p L AVF revision 08/07 Gerry Johnson MD Aug 08, 2017 09:33
[2017-08-08] MEDS: PANTOPRAZOLE SOD 20 MG DELAYED RELEASE TAB PO SCH (09:48)
[2017-08-08] MEDS: ASPIRIN 325 MG TAB PO SCH (09:48)
[2017-08-08] MEDS: CARVEDILOL 12.5 MG TAB PO SCH ×2 (09:49→21:00)
[2017-08-08] MEDS: GABAPENTIN 100 MG CAP PO SCH ×3 (09:49→17:40)
[2017-08-08] MEDS: BUMETANIDE 1 MG TAB PO SCH (09:50)
[2017-08-08] MEDS: HEPARIN SODIUM - SQ 10,000 UNITS/ML VIAL SQ SCH ×2 (11:02→17:40)
[2017-08-09] VITALS (28 sets, daily range): BP systolic 83–105; BP diastolic 50–53; PULSE 59–75; RESP 15–18; TEMP 97.6–98.9; O2SAT 90–100
[2017-08-09] MEDS: ACETAMINOPHEN 325 MG TAB PO PRN ×3 (03:16→23:25)
[2017-08-09] MEDS: HEPARIN SODIUM - SQ 10,000 UNITS/ML VIAL SQ SCH ×3 (03:16→22:12)
[2017-08-09 05:46] LABS: BICARBONATE 25.6 MEQ/L (21.0-32.0); POTASSIUM 5.1 MEQ/L (3.5-5.1)
[2017-08-09] MEDS: THYROID 60 MG TAB PO SCH (06:02)
--- NOTE | 2017-08-09 07:54 | PD.VS.PN ---
Subjective POD #: 2 Procedure(s): L UE access revision and DRIL Subjective/Hospital Course doing well, pain controlled, resting hasn't been OOB yet Objective Vitals/I&O Date Time Temp Pulse Resp B/P (MAP) Pulse Ox O2 Delivery O2 Flow Rate FiO2 08/09/17 06:00 64 08/09/17 05:00 66 08/09/17 04:00 70 08/09/17 03:20 95 Room Air 08/09/17 03:20 97.7 66 16 105/53 (70) 95 08/09/17 03:00 70 08/09/17 02:00 61 08/09/17 01:00 61 08/09/17 00:00 60 08/08/17 23:30 98.3 60 16 92/51 (65) 100 08/08/17 23:30 100 Nasal Cannula 2.00 08/08/17 23:00 60 08/08/17 22:00 59 08/08/17 21:00 62 08/08/17 20:00 64 08/08/17 19:50 Nasal Cannula 2.00 08/08/17 19:45 100 Nasal Cannula 3.00 08/08/17 19:45 98.0 65 16 93/50 (64) 100 08/08/17 19:00 66 08/08/17 18:06 65 08/08/17 17:34 100 Nasal Cannula 2.00 08/08/17 17:18 66 08/08/17 16:00 67 08/08/17 15:55 66 08/08/17 15:55 98.6 66 18 90/51 (64) 100 08/08/17 15:55 100 Nasal Cannula 3.00 08/08/17 14:09 72 08/08/17 12:25 69 08/08/17 11:00 67 08/08/17 11:00 98.4 72 18 82/45 (57) 98 08/08/17 11:00 17 08/08/17 11:00 98 Nasal Cannula 2.00 08/08/17 10:34 Nasal Cannula 2.00 08/08/17 10:00 77 08/08/17 09:00 74 08/08/17 08:00 66 08/09/17 08/09/17 08/09/17 07:00 15:00 23:00 Intake Total 300 ml Output Total 0 ml Balance 300 ml Exam: L arm minimally swollen L arm incision ok and R leg incision ok + thrill good hand strength L UE Laboratory Laboratory Tests Test 08/09/17 04:44 Blood Urea Nitrogen 27 Creatinine 6.24 Random Glucose 153 Calcium Level 8.3 Sodium Level 133 Potassium Level 5.1 Chloride Level 97 Carbon Dioxide Level 25.6 Anion Gap 10 Estimat Glomerular Filtration Rate 9 Assessment and Plan Plan Looks great POD#2 Had HD yesterday 1. PT/OOB 2. Reg diet, meds 3. d/c planning Discharge Planning likely tomorrow (POD#3) after HD Issa Jansen MD Aug 09, 2017 07:54
[2017-08-09] MEDS ORDERED: BISACODYL EC 5 MG TABEC PO PRN (08:00)
[2017-08-09] MEDS: GABAPENTIN 100 MG CAP PO SCH ×3 (08:43→17:46)
[2017-08-09] MEDS: ASPIRIN 325 MG TAB PO SCH (08:44)
[2017-08-09] MEDS: BUMETANIDE 1 MG TAB PO SCH (08:44)
[2017-08-09] MEDS: CARVEDILOL 12.5 MG TAB PO SCH ×2 (08:44→22:13)
[2017-08-09] MEDS: PANTOPRAZOLE SOD 20 MG DELAYED RELEASE TAB PO SCH (08:44)
[2017-08-09] MEDS: INSULIN ASPART SUPPLEMENTAL SCALE SQ SCH ×4 (08:45→21:00)
--- NOTE | 2017-08-09 16:00 | PD.CONS ---
HPI Service [facility] Consult Requested By Bonnie SANCHEZ Reason for Consult dizziness and hypotension Primary Care Physician Meir Oliver DO Diagnoses: History of Present Illness 67 y/o M with hx of ESRD on dialysis, type 2 diabetes, hypertension, anemia secondary to chronic kidney disease, and coronary disease who was admitted for surgery due to failed left AV fistula [facility] consulted due to hypotension and dizziness. Patient stated that since he had the surgery he hasn't been feeling well. He stated that when he sits or stands up he feels dizzy. He described his he has morning to pass out. Denied room spinning at all. Patient stated that because of this he doesn't feel steady on his feet. Otherwise he denies any focal neurological deficits. Patient's nurse is also interviewed regards to this issue. Since the procedure patient intermittently has been hypotensive and more so the past couple days. He does not have any fevers or chills. Patient is slow in getting information but he was AAO X 3 and did answer questions appropriately. All other review of systems reviewed and negative. Past Family Social History Allergies: Coded Allergies: egg (Unverified Allergy, Mild, 08/07/17) adhesive (Unverified Adverse Reaction, Severe, SKIN BREAKDOWN/ULCERS, ) Uncoded Allergies: MSG (Allergy, Intermediate, bowel problems, 08/02/17) Past Medical History ESRD on HD MWF Steal Syndrome DM HTN Anemia of Renal Disease CHF CAD Past Surgical History L AVF placement with revision CABG x4 vessel Mitral valvuloplasty AICD placement Reported Medications Coq-10 Tr (Coenzyme Q10 (Ubidecarenone)) 100 Mg Cap 200 Mg PO DAILY Novolin 70-30 Inj (Insulin Human Isoph/Insulin Regular) 1,000 Unit/10 Ml Vial 12 Units SQ BIDAC [place] Thyroid (Thyroid) 60 Mg Tab 60 Mg PO BID Pantoprazole (Pantoprazole Sodium) 20 Mg Tab 20 Mg PO DAILY Bumetanide 2 Mg Tab 2 Mg PO DAILY Coreg (Carvedilol) 12.5 Mg Tab 12.5 Mg PO BID Gabapentin 100 Mg Cap 100 Mg PO TID Active Ordered Medications Current Medications Lactated Ringer's 1,000 ml @ 30 mls/hr Q24H PRN IV SEE LABEL COMMENTS Last administered on 08/07/17t 07:40; Start 08/07/17 at 07:00; Stop 08/10/17 at 06 :59 Sodium Chloride 500 ml @ 30 mls/hr [id number] PRN IV SEE LABEL COMMENTS; Start at 07:00; Stop 08/10/17 at 06:59 Metoprolol Tartrate (Lopressor) 25 mg FILTER PLANT SUPERVISOR PRN PO SEE LABEL COMMENTS; Start 08/07/17 at 07:00; Stop 08/10/17 at 06:59 Povidone Iodine (Betadine 5% Antisepsis Kit) 1 applic [employer] SUPER[employer]OR PRN EACH NARE SEE LABEL COMMENTS Last administered on 08/07/17 07:50; Start 08/07/17 at 07: 00; Stop 08/10/17 at 06:59 Chlorhexidine Gluconate (Chlorhexidine 2% Cloth) 3 pack [employer] SUPER[employer]OR PRN TOPICAL SEE LABEL COMMENTS; Start 08/07/17 at 07:00; Stop 08/10/17 at 06:59 Insulin Human Regular (NovoLIN R INJ) See Protocol Table ... [employer] SUPERVISOR PRN SQ SEE PROTOCOL TABLE; Start 08/07/17 at 07:00; Stop 08/10/17 at 06:59 Protamine Sulfate (Protamine Sulfate Inj) 50 mg STK-MED ONCE .ROUTE Last administered on 08/07/17 11:22; Start 08/07/17 at 07:00; Stop 08/07/17 at 07 :01; Status DC Heparin Sodium (Porcine) (Heparin Inj) 10,000 units STK-MED ONCE .ROUTE Last administered on 08/07/17 10:31; Start 08/07/17 at 07:00; Stop 08/07/17 at 07 :01; Status DC Bupivacaine HCl (Marcaine Pf 0.5% Inj) 30 ml STK-MED ONCE .ROUTE ; Start at 07:01; Stop 08/07/17 at 07:02; Status DC Thrombin (Thrombin Top [place]) 20,000 units STK-MED ONCE .ROUTE Last administered on 08/07/17 11:09; Start 08/07/17 at 07:01; Stop 08/07/17 at 07 :02; Status DC Heparin Sodium/ Sodium Chloride 500 ml @ As Directed STK-MED ONCE .ROUTE Last administered on 08/07/17 09:21; Start 08/07/17 at 07:01; Stop 08/07/17 at 07 :02; Status DC Oxycodone HCl (Roxicodone) 5 mg Q4H PRN PO PAIN SCALE 1 TO 5 Last administered on 08/08/17 09:49; Start 08/07/17 at 08:45; Status Future Hold Hydromorphone HCl (Dilaudid) 2 mg Q4H PRN PO PAIN SCALE 6 TO 10; Start at 08:45; Status Future Hold Morphine Sulfate (Morphine Inj) 2 mg Q1H PRN IV PUSH BREAKTHROUGH PAIN; Start 08/07/17 at 08:45; Status Future Hold Heparin Sodium (Porcine) (Heparin Inj) 5,000 units Q8H SQ Last administered on 08/09/17 12:28; Start 08/08/17 at 11:00 Bumetanide (Bumetanide) 2 mg DAILY PO Last administered on 08/09/17 08:44; Start 08/07/17 at 10:30; Stop 08/09/17 at 15:23; Status DC Carvedilol (Coreg) 12.5 mg BID PO Last administered on 08/09/17 08:44; Start 08/07/17 at 11:00 Gabapentin (Neurontin) 100 mg TID PO Last administered on 08/09/17 12:28; Start 08/07/17 at 10:30 Pantoprazole Sodium (Protonix) 20 mg DAILY PO Last administered on 08/09/17 08:44; Start 08/07/17 at 09:00 Thyroid ([place] Thyroid) 60 mg DAILY@0600 PO Last administered on 08/09/17 06 :02; Start 08/07/17 at 06:00 Non-Formulary Medication 200 mg DAILY PO ; Start 08/07/17 at 09:00; Status UNV Aspirin (Aspirin) 325 mg DAILY PO Last administered on 08/09/17 08:44; Start 08/07/17 at 11:00 Dextrose (D50w (Vial) Inj) 50 ml UNSCH PRN IV PUSH HYPOGLYCEMIA-SEE COMMENTS; Start 08/07/17 at 08:45 Glucagon (Glucagon Inj) 1 mg UNSCH PRN OTHER HYPOGLYCEMIA-SEE COMMENTS; Start 08/07/17 at 08:45 Insulin Aspart (NovoLOG SUPPLEMENTAL SCALE) 1 ACHS SLIDING SCALE SQ Last administered on 08/09/17 12:28; Start 08/07/17 at 12:00 Vancomycin HCl (Vancomycin Inj) 1,000 mg STK-MED ONCE .ROUTE Last administered on 08/07/17 09:15; Start 08/07/17 at 09:01; Stop 08/07/17 at 09:02; Status DC Ondansetron HCl (*ZOFRAN INJ PERIprocedural ONLY) 4 mg STK-MED ONCE .ROUTE Last administered on 08/07/17 12:46; Start 08/07/17 at 12:45; Stop 08/07/17 at 12:46; Status DC Ondansetron HCl (Zofran Inj) 4 mg Q6H PRN IV PUSH NAUSEA OR VOMITING; Start at 14:15 Miscellaneous Information ALL NURSING DEPARTME... UNSCH PRN .XX SEE LABEL COMMENTS; Start 08/07/17 at 12:29; Stop 08/08/17 at 12:28; Status DC Sodium Chloride 1,000 ml @ 0 mls/hr Q0M PRN OTHER For Prime & Rinse Back; Start 08/07/17 at 17:32 Heparin Sodium (Porcine) (Heparin Inj) 8,000 units UNSCH PRN IV FLUSH WITH DIALYSIS; Start 08/07/17 at 17:45 Sodium Chloride 1,000 ml @ 200 mls/hr Q5H PRN IV WITH DIALYSIS; Start at 17:32 Sodium Chloride 1,000 ml @ 0 mls/hr Q0M PRN OTHER WITH DIALYSIS; Start at 17:32 Mannitol (Mannitol Inj) 12.5 gm UNSCH PRN IV WITH DIALYSIS; Start 08/07/17 at 17:45 Albumin Human 100 ml @ 60 mls/hr UNSCH PRN IV WITH DIALYSIS Last administered on 08/07/17 19:28; Start 08/07/17 at 17:45 Sodium Chloride (NS Flush) 5 ml UNSCH PRN IV FLUSH WITH DIALYSIS; Start at 17:45 Heparin Sodium (Porcine) (Heparin Inj) UNSCH PRN .XX WITH DIALYSIS Last administered on 08/07/17 19:28; Start 08/07/17 at 17:45 Gentamicin Sulfate (Gentamicin (Dialysis) Inj) 20 mg UNSCH PRN OTHER WITH DIALYSIS Last administered on 08/07/17 19:28; Start 08/07/17 at 17:45 Ondansetron HCl (Zofran Inj) 4 mg UNSCH PRN IV PUSH WITH DIALYSIS; Start 08/07 at 17:45 Acetaminophen (Tylenol) 650 mg UNSCH PRN PO for headach, pain, temp > 101F; Start 08/07/17 at 17:45 Diphenhydramine HCl (Benadryl) 25 mg UNSCH PRN PO for hives/itching/anaphylaxis ; Start 08/07/17 at 17:45 Nitroglycerin (Nitrostat Sl) 0.4 mg UNSCH PRN SL CHEST PAIN; Start 08/07/17 at 17:45 Clonidine (Catapres) 0.1 mg UNSCH PRN PO for BP > 180/100 X 2 readings; Start 08/07/17 at 17:45 Gelatin (Gelfoam 12 Mm/7 Mm Top) 1 foam UNSCH PRN TOP SEE LABEL COMMENTS; Start 08/07/17 at 17:45 Acetaminophen (Tylenol) 650 mg Q4H PRN PO PAIN 1-10 Last administered on 08:43; Start 08/08/17 at 14:00 Bisacodyl (Dulcolax Ec) 10 mg DAILY PRN PO constipation Last administered on 08:44; Start 08/09/17 at 08:00 Midodrine (Proamatine) 5 mg TID@07,12,17 PO ; Start 08/09/17 at 17:00 Family History Mother and father with DM Social History Denying tobacco, alcohol illicit drug use. Physical Exam Vital Signs Vital Signs Date Time Temp Pulse Resp B/P (MAP) Pulse Ox O2 Delivery O2 Flow Rate FiO2 08/09/17 14:00 61 08/09/17 13:31 93 Nasal Cannula 2.00 08/09/17 13:09 64 08/09/17 12:00 71 08/09/17 11:00 68 08/09/17 11:00 90 Nasal Cannula 2.00 08/09/17 11:00 98.6 64 15 83/53 (63) 90 08/09/17 10:05 65 08/09/17 09:00 75 08/09/17 08:00 69 08/09/17 08:00 98.9 69 16 91/53 (66) 90 08/09/17 08:00 90 Room Air 08/09/17 07:02 68 08/09/17 06:00 64 08/09/17 05:00 66 08/09/17 04:00 70 08/09/17 03:20 95 Room Air 08/09/17 03:20 97.7 66 16 105/53 (70) 95 08/09/17 03:00 70 08/09/17 02:00 61 08/09/17 01:00 61 08/09/17 00:00 60 08/08/17 23:30 98.3 60 16 92/51 (65) 100 08/08/17 23:30 100 Nasal Cannula 2.00 08/08/17 23:00 60 08/08/17 22:00 59 08/08/17 21:00 62 08/08/17 20:00 64 08/08/17 19:50 Nasal Cannula 2.00 08/08/17 19:45 100 Nasal Cannula 3.00 08/08/17 19:45 98.0 65 16 93/50 (64) 100 08/08/17 19:00 66 08/08/17 18:06 65 08/08/17 17:34 100 Nasal Cannula 2.00 08/08/17 17:18 66 08/08/17 16:00 67 Physical Exam GENERAL: This is a well-nourished, well-developed patient, in no apparent distress. SKIN: L arm with revision of fistula + bruit. HEAD: Atraumatic. Normocephalic. No temporal or scalp tenderness. EYES: Pupils equal round and reactive. Extraocular motions intact. No scleral icterus. No injection or drainage. ENT: Nose without bleeding, purulent drainage or septal hematoma. Throat without erythema, tonsillar hypertrophy or exudate. Uvula midline. Airway patent. NECK: Trachea midline. No JVD or lymphadenopathy. Supple, nontender, no meningeal signs. CARDIOVASCULAR: Regular rate and rhythm without murmurs, gallops, or rubs. RESPIRATORY: Clear to auscultation. Breath sounds equal bilaterally. No wheezes , rales, or rhonchi. GASTROINTESTINAL: Abdomen soft, non-tender, nondistended. No hepato-splenomegaly , or palpable masses. No guarding. MUSCULOSKELETAL: Extremities without clubbing, cyanosis, or edema. No joint tenderness, effusion, or edema noted. No calf tenderness. Negative Homans sign bilaterally. NEUROLOGICAL: Awake and alert. Cranial nerves II through XII intact. Motor and sensory grossly within normal limits. Five out of 5 muscle strength in all muscle groups. Normal speech. Laboratory Laboratory Tests Test 08/09/17 04:44 Blood Urea Nitrogen 27 Creatinine 6.24 Random Glucose 153 Calcium Level 8.3 Sodium Level 133 Potassium Level 5.1 Chloride Level 97 Carbon Dioxide Level 25.6 Anion Gap 10 Estimat Glomerular Filtration Rate 9 Result Diagram: 08/08/17 0421 08/09/17 0444 Assessment and Plan Assessment and Plan This is a 67-year-old male past medical history of end-stage renal disease on dialysis, type 2 diabetes, hypertension, anemia secondary to chronic kidney disease, and coronary disease who was initially admitted for failed left AV fistula [facility] consulted due to hypotension and dizziness Left upper extremity failing access/Access related hand ischemia -Status post Left upper extremity access revision and Left upper extremity distal revascularization, interval ligation. -Management per vascular surgeon. Lightheadedness -Dizziness sounds more like a lightheadedness. most likely secondary to hypotension. Since patient had a procedure he had multiple hypotensive readings. May be due to decreased oral intake. -Based on interview and labs very unlikely this is infectious. Will get a repeat CBC. Will get orthostatics. -Will start midodrine since patient is symptomatic. Hypotension -See treatment as above. -Bumex was discontinued today. ESRD -Patient receives HD MWF -Continue management per [facility] home health. Steal Syndrome/DM/HTN/Anemia of Renal Disease/CHF/CAD -Continue her current regimen. DVT prophylaxis -SCDs Discussed Condition With patient and his nurse Kavitha Benítez MD Aug 09, 2017 16:00
[2017-08-09] MEDS: MIDODRINE 5 MG TAB PO SCH (17:46)
--- NOTE | 2017-08-09 17:59 | HHI.NPPN ---
Subjective History of Present Illness The patient is a 67 yo [place] male who came in to this facility for L AVF revision with Dr. Jansen / to Steal Syndrome. Is a dialysis patient in [place] whose regular HD is MWF. He did HD yesterday. Seen during HD and seems to be tolerating well. Using RIJ PermCath. BP is marginal at 93/56, but says this is his typical BP. PMHx includes DM, HTN, CHF s/p AICD, CAD. Says he does receive Zemplar and Epogen during his HD sessions. Interval History Pt feeling well. Appetite OK, but does not like diet. Some dizziness (Linda Baltazar) Review of Systems General Constitutional: Fatigue (Linda Baltazar) Neuro Neuro: Dizziness (Linda Baltzaar) Objective Data Data 08/09/17 08/10/17 19:00 07:00 Intake Total 420 ml Balance 420 ml Intake Oral 420 ml Vital Signs Date Time Temp Pulse Resp B/P (MAP) Pulse Ox O2 Delivery O2 Flow Rate FiO2 08/09/17 17:00 59 08/09/17 16:04 59 08/09/17 15:00 97.6 60 16 91/53 (66) 100 08/09/17 15:00 59 08/09/17 15:00 99 Nasal Cannula 2.00 08/09/17 14:00 61 08/09/17 13:31 93 Nasal Cannula 2.00 08/09/17 13:09 64 08/09/17 12:00 71 08/09/17 11:00 68 08/09/17 11:00 90 Nasal Cannula 2.00 08/09/17 11:00 98.6 64 15 83/53 (63) 90 08/09/17 10:05 65 08/09/17 09:00 75 08/09/17 08:00 69 08/09/17 08:00 98.9 69 16 91/53 (66) 90 08/09/17 08:00 90 Room Air 08/09/17 07:02 68 08/09/17 06:00 64 08/09/17 05:00 66 08/09/17 04:00 70 08/09/17 03:20 95 Room Air 08/09/17 03:20 97.7 66 16 105/53 (70) 95 10/26/17 03:00 70 08/09/17 02:00 61 08/09/17 01:00 61 08/09/17 00:00 60 08/08/17 23:30 98.3 60 16 92/51 (65) 100 08/08/17 23:30 100 Nasal Cannula 2.00 08/08/17 23:00 60 08/08/17 22:00 59 08/08/17 21:00 62 08/08/17 20:00 64 08/08/17 19:50 Nasal Cannula 2.00 08/08/17 19:45 100 Nasal Cannula 3.00 08/08/17 19:45 98.0 65 16 93/50 (64) 100 08/08/17 19:00 66 08/08/17 18:06 67 (Linda Baltazar) -: 08/08/17 0421 08/09/17 0444 Tubes & Lines: Perma-Cath Medication Review Current Medications Medications (Trade) Dose Ordered Sig/Renny Route Start Time Stop Time Status Last Admin Lactated Ringer's 1,000 ml @ 30 mls/hr Q24H PRN IV 08/07/17 07:00 08/10/17 06:59 08/07/17 07:40 Sodium Chloride 500 ml @ 30 mls/hr [id number] PRN IV 08/07/17 07:00 08/10/17 06:59 (Lopressor) 25 mg [employer]PLOYMENT APPEALS EXAMINER PRN PO 08/07/17 07:00 08/10/17 06:59 (Betadine 5% Antisepsis Kit) 1 applic [employer]MENT APPEALS EXAMINER PRN EACH NARE 08/07/17 07:00 08/10/17 06:59 08/07/17 07:50 (Chlorhexidine 2% Cloth) 3 pack [employer]MENT APPEALS EXAMINER PRN TOPICAL 08/07/17 07:00 08/10/17 06:59 (NovoLIN R INJ) See Protocol Table ... [employer]PL[employer]MENT APPEALS EXAMINER PRN SQ 08/07/17 07:00 08/10/17 06:59 (Roxicodone) 5 mg Q4H PRN PO 08/07/17 08:45 Future Hold 08/08/17 09:49 (Dilaudid) 2 mg Q4H PRN PO 08/07/17 08:45 Future Hold (Morphine Inj) 2 mg Q1H PRN IV PUSH 08/07/17 08:45 Future Hold (Heparin Inj) 5,000 units Q8H SQ 08/08/17 11:00 08/09/17 12:28 (Coreg) 12.5 mg BID PO 08/07/17 11:00 08/09/17 08:44 (Neurontin) 100 mg TID PO 08/07/17 10:30 08/09/17 17:46 (Protonix) 20 mg DAILY PO 08/07/17 09:00 08/09/17 08:44 ([place] Thyroid) 60 mg DAILY@0600 PO 08/07/17 06:00 08/09/17 06:02 (Aspirin) 325 mg DAILY PO 08/07/17 11:00 08/09/17 08:44 (D50w (Vial) Inj) 50 ml UNSCH PRN IV PUSH 08/07/17 08:45 (Glucagon Inj) 1 mg UNSCH PRN OTHER 08/07/17 08:45 (NovoLOG SUPPLEMENTAL SCALE) 1 ACHS SLIDING SCALE SQ 08/07/17 12:00 08/09/17 12:28 (Zofran Inj) 4 mg Q6H PRN IV PUSH 08/07/17 14:15 Sodium Chloride 1,000 ml @ 0 mls/hr Q0M PRN OTHER 08/07/17 17:32 (Heparin Inj) 8,000 units UNSCH PRN IV FLUSH 08/07/17 17:45 Sodium Chloride 1,000 ml @ 200 mls/hr Q5H PRN IV 08/07/17 17:32 Sodium Chloride 1,000 ml @ 0 mls/hr Q0M PRN OTHER 08/07/17 17:32 (Mannitol Inj) 12.5 gm UNSCH PRN IV 08/07/17 17:45 Albumin Human 100 ml @ 60 mls/hr UNSCH PRN IV 08/07/17 17:45 08/07/17 19:28 (NS Flush) 5 ml UNSCH PRN IV FLUSH 08/07/17 17:45 (Heparin Inj) UNSCH PRN .XX 08/07/17 17:45 08/07/17 19:28 (Gentamicin (Dialysis) Inj) 20 mg UNSCH PRN OTHER 08/07/17 17:45 08/07/17 19:28 (Zofran Inj) 4 mg UNSCH PRN IV PUSH 08/07/17 17:45 (Tylenol) 650 mg UNSCH PRN PO 08/07/17 17:45 (Benadryl) 25 mg UNSCH PRN PO 08/07/17 17:45 (Nitrostat Sl) 0.4 mg UNSCH PRN SL 08/07/17 17:45 (Catapres) 0.1 mg UNSCH PRN PO 08/07/17 17:45 (Gelfoam 12 Mm/7 Mm Top) 1 foam UNSCH PRN TOP 08/07/17 17:45 (Tylenol) 650 mg Q4H PRN PO 08/08/17 14:00 08/09/17 08:43 (Dulcolax Ec) 10 mg DAILY PRN PO 08/09/17 08:00 08/09/17 08:44 (Proamatine) 5 mg TID@07,12,17 PO 08/09/17 17:00 08/09/17 17:46 (Linda Baltazar) Physical Exam General Appearance: No Acute Distress, Comfortable (Linda Baltazar) Eyes Eye Exam: Sclera White (Linda Baltazar) Pulmonary Resp Exam: Clear Bilaterally, Breath Sounds Equal, No Distress (Linda Baltazar) Cardiology CV Exam: Regular, Normal Sinus Rhythm (Linda Baltazar) Gastrointestinal/Abdomen GI Exam: Soft, Non-Tender (Linda Baltazar) Integumentary Skin Exam: Clear, Warm (Linda Baltazar) Extremeties Extremities Exam: Trace Edema (bilat arms and pretibial) (Linda Baltazar) Neurologic Neuro Exam: Alert, Awake (Linda Baltazar) Psychiatric Psych Exam: Appropriate Responses (Linda Baltazar) Assessment/Plan Problem List: (1) ESRD (end stage renal disease) on dialysis ICD Codes: N18.6 - End stage renal disease; Z99.2 - Dependence on renal dialysis Plan: Status post Left upper extremity access revision & extremity distal revascularization HD tomorrow to keep on outpatient schedule. Epogen with HD D/C Bumetanide as aneuric Primary placed on Midodrine for hypotension Medications should be adjusted for the patient's ESRD. Avoid gadolinium. (2) Diabetes mellitus ICD Codes: E11.9 - Type 2 diabetes mellitus without complications Plan: Mgmt per primary (3) Cardiomyopathy ICD Codes: I42.9 - Cardiomyopathy, unspecified (4) Steal syndrome dialysis vascular access ICD Codes: T82.898A - Other specified complication of vascular prosthetic devices, implants and grafts, initial encounter Plan: s/p L AVF revision 08/07 (Linda Baltazar) Plan The exam, history, and the medical decision-making described in the above note were completed with the assistance of the [employer]. I reviewed and agree with the findings presented. (Gerry Johnson MD) Linda Baltazar Aug 09, 2017 17:59 Gerry Johnson MD Aug 10, 2017 14:30
[2017-08-09] MEDS ORDERED: EPOETIN ALFA 10,000 UNITS/ML VIAL IV PUSH PRN (18:00)
[2017-08-09 21:37] LABS: HEMATOCRIT 25.6 % (39.0-51.0); MEAN CELL VOLUME 93.4 FL (80.0-100.0); MEAN CORPUSCULAR HEMOGLOBIN 29.9 PG (27.0-34.0); PLATELET COUNT 136 TH/MM3 (150-450); RED BLOOD COUNT 2.74 MIL/MM3 (4.50-5.90); RED CELL DISTRIBUTION WIDTH 16.9 % (11.6-17.2); REVIEW FLAG FINAL; WHITE BLOOD COUNT 7.5 TH/MM3 (4.0-11.0)
[2017-08-10] VITALS (24 sets, daily range): BP systolic 89–116; BP diastolic 51–56; PULSE 59–95; RESP 16–18; TEMP 97.6–98.4; O2SAT 90–100
[2017-08-10 05:26] LABS: MEAN CELL VOLUME 92.9 FL (80.0-100.0); MEAN CORPUSCULAR HEMOGLOBIN 30.2 PG (27.0-34.0); MEAN CORPUSCULAR HGB CONC 32.5 % (32.0-36.0); PLATELET COUNT 138 TH/MM3 (150-450); RED BLOOD COUNT 2.91 MIL/MM3 (4.50-5.90); RED CELL DISTRIBUTION WIDTH 16.9 % (11.6-17.2); REVIEW FLAG FINAL; WHITE BLOOD COUNT 7.9 TH/MM3 (4.0-11.0)
[2017-08-10 05:56] LABS: BICARBONATE 24.8 MEQ/L (21.0-32.0)
[2017-08-10] MEDS ORDERED: HEPARIN SODIUM - SQ 10,000 UNITS/ML VIAL SQ SCH (06:00)
[2017-08-10] MEDS: HEPARIN SODIUM - SQ 10,000 UNITS/ML VIAL SQ SCH ×3 (06:14→21:11)
[2017-08-10] MEDS: THYROID 60 MG TAB PO SCH (06:14)
[2017-08-10] MEDS: MIDODRINE 5 MG TAB PO SCH ×3 (06:14→18:04)
[2017-08-10] MEDS: ACETAMINOPHEN 325 MG TAB PO PRN (06:18)
--- NOTE | 2017-08-10 07:23 | PD.VS.PN ---
Subjective POD #: 3 Procedure(s): L UE access revision and DRIL Subjective/Hospital Course borderline hypotensive but dizzy yesterday, likely orthostatic - did not get OOB pain controlled rufina po also had cardiac arrhythmia by report - no SOB or chest pain Objective Vitals/I&O Date Time Temp Pulse Resp B/P (MAP) Pulse Ox O2 Delivery O2 Flow Rate FiO2 08/10/17 06:00 60 08/10/17 05:00 59 08/10/17 04:00 61 08/10/17 03:00 100 Nasal Cannula 2.00 08/10/17 03:00 61 08/10/17 03:00 98.4 95 18 94/52 (66) 95 08/10/17 02:00 60 08/10/17 01:01 60 08/10/17 01:00 60 08/10/17 00:00 59 08/09/17 23:00 100 Nasal Cannula 2.00 08/09/17 23:00 59 08/09/17 23:00 97.9 63 18 100/51 (67) 100 08/09/17 22:00 60 08/09/17 21:00 59 08/09/17 20:00 59 08/09/17 19:20 98 Nasal Cannula 2.00 08/09/17 19:00 100 Nasal Cannula 2.00 08/09/17 19:00 59 08/09/17 19:00 98.1 62 18 91/50 (64) 100 08/09/17 18:05 59 08/09/17 17:30 93/50 (64) 85/53 (64) 85/52 (63) 08/09/17 17:00 59 08/09/17 16:04 59 08/09/17 15:00 97.6 60 16 91/53 (66) 100 08/09/17 15:00 59 08/09/17 15:00 99 Nasal Cannula 2.00 08/09/17 14:00 61 08/09/17 13:31 93 Nasal Cannula 2.00 08/09/17 13:09 64 08/09/17 12:00 71 08/09/17 11:00 68 08/09/17 11:00 90 Nasal Cannula 2.00 08/09/17 11:00 98.6 64 15 83/53 (63) 90 08/09/17 10:05 65 08/09/17 09:00 75 08/09/17 08:00 69 08/09/17 08:00 98.9 69 16 91/53 (66) 90 08/09/17 08:00 90 Room Air 08/10/17 08/10/17 08/10/17 07:00 15:00 23:00 Intake Total 240 ml Output Total 0 ml Balance 240 ml Exam: L UE incision ok Hand warm minimal post-operative swelling R thigh incision ok Laboratory Laboratory Tests Test 08/09/17 21:07 08/10/17 04:37 White Blood Count 7.5 7.9 Red Blood Count 2.74 2.91 Hemoglobin 8.2 8.8 Hematocrit 25.6 27.0 Mean Corpuscular Volume 93.4 92.9 Mean Corpuscular Hemoglobin 29.9 30.2 Mean Corpuscular Hemoglobin Concent 32.0 32.5 Red Cell Distribution Width 16.9 16.9 Platelet Count 136 138 Mean Platelet Volume 9.8 9.9 Blood Urea Nitrogen 37 Creatinine 7.32 Random Glucose 146 Albumin 2.7 Calcium Level 8.4 Phosphorus Level 6.5 Sodium Level 131 Potassium Level 5.0 Chloride Level 95 Carbon Dioxide Level 24.8 Anion Gap 11 Estimat Glomerular Filtration Rate 8 Assessment and Plan Plan Stable from surgical standpoint POD#3 1. Medical service started midodrine - appreciate assistance 2. Nephrology following and anticipate HD today (MWF) 3. Cardiology may interrogate AICD From surgical standpoint, cleared for d/c. Will discuss transition to medical service. Discharge Planning likely tomorrow (POD#3) after HD Issa Jansen MD Aug 10, 2017 07:23
[2017-08-10] MEDS: CARVEDILOL 12.5 MG TAB PO SCH (07:38)
[2017-08-10] MEDS: GABAPENTIN 100 MG CAP PO SCH ×3 (07:38→18:04)
[2017-08-10] MEDS: INSULIN ASPART SUPPLEMENTAL SCALE SQ SCH ×4 (08:30→21:00)
[2017-08-10] MEDS: ASPIRIN 325 MG TAB PO SCH (09:04)
[2017-08-10] MEDS: PANTOPRAZOLE SOD 20 MG DELAYED RELEASE TAB PO SCH (09:05)
[2017-08-10] MEDS: GENTAMICIN SULFATE (DIALYSIS USE ONLY) 20 MG/2 ML VIAL OTHER PRN (09:30)
[2017-08-10] MEDS: HEPARIN SODIUM - IV 10,000 UNITS/10 ML VIAL PRN (09:30)
[2017-08-10] MEDS: ALBUMIN 25% INJ 100 ML IV PRN (09:30)
--- NOTE | 2017-08-10 10:37 | MB ---
cc: NORBERTO ELIAS M.D. DATE OF CONSULTATION: 08/10/2017 REASON FOR CONSULTATION Evaluation of low blood pressure. HISTORY OF PRESENT ILLNESS Hola Hernandez is a 67-year-old man with extensive cardiovascular history. He said he had two massive MIs about 12 years ago [id number] and then he had a four-vessel bypass at [facility]. None of those records are available. 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 He is known to have very poor heart function. His last nuclear stress test performed by my colleague, Dr. Iglesias, was July 27, 2016. This showed infarction of the apex and septum with a low ejection fraction. His previous echoes have showed a low ejection fraction. He had a biventricular Medtronic defibrillator on May 28, 2015. He has paroxysmal atrial fibrillation but refuses anticoagulation due to the fear of bleeding. He has a very limited lifestyle. He is extremely sedentary, says primarily due to pain in his hip. His only cardiac therapy when he last saw Dr. Iglesias an October was carvedilol 12.5 mg b.i.d. There is an office visit in April with carvedilol dose of 6.25 b.i.d. He came in this time to have worked done on his dialysis access and he has been noted to have low blood pressures. He generally has been feeling very tired and feels dizzy when he sits up. He had an episode of syncope during this admission. Telemetry is showing various arrhythmias, looks like atrial fibrillation with biventricular pacing. There was also an episode of perhaps low ventricular tachycardia. The patient does not have any anginal symptoms. He does say he gets recurrent abdominal swelling and has regular paracenteses performed by interventional radiology. The stomach actually right now is quite tight from ascites. PAST MEDICAL HISTORY 1. Ischemic cardiomyopathy, biventricular Medtronic defibrillator with CHF. 2. Type 2 diabetes. 3. Gangrenous toe of the right fifth toe requiring amputation. 4. Previous hypertension. 5. End-stage renal disease. PAST SURGICAL HISTORY 1. Defibrillator. 2. Bypass operation. 3. Dialysis access. 4. Right shoulder rotator cuff repair. MEDICATIONS Medications are charted. ALLERGIES None known. SOCIAL HISTORY Notable for one pack per day smoking, which he says he quit 20 years ago. REVIEW OF SYSTEMS Mainly notable for right hip pain. PHYSICAL EXAMINATION GENERAL: An obese, well-developed white male who responds to questions appropriately but somewhat slow. He denies any prior stroke. VITAL SIGNS: At 8:08 a.m. he had a blood pressure of 89/54. There is documented blood pressure in the 80s yesterday evening. On August 09 he was 83/53. He has been started on midodrine. He has not been receiving carvedilol as ordered because of the low blood pressure. HEENT: Unremarkable. NECK: No JVD. No bruits. CHEST: Clear anteriorly. CARDIAC: S1, S2, regular rate and rhythm. There is an S3 gallop. ABDOMEN: Distended and suspicious for ascites. EXTREMITIES: He has a right thigh wound which is apparently a result of the vascular surgery. No peripheral edema. EKG EKG shows a paced rhythm. LABORATORY Laboratories are charted. IMPRESSION Suspect fairly advanced ischemic cardiomyopathy and low blood pressures may be a consequence of that plus possibly some autonomic insufficiency from his diabetes. RECOMMENDATIONS I am going to have his defibrillator checked. I think he is having atrial fibrillation currently. In the past he has refused anticoagulation. Eliquis might be a consideration for anticoagulation and he was agreeable, and based on his age and body size his dose will be 5 mg twice a day. Agree with the use of midodrine to try to raise his blood pressure and probably discontinue and hold the carvedilol. Prognosis is poor with fairly advanced cardiomyopathy that he has had for years and now limiting low blood pressures. Further therapy to be determined. MD TE Lopez/TANYA /9:37 AM /10:02 AM
--- NOTE | 2017-08-10 11:55 | HHI.NPPN ---
Subjective History of Present Illness The patient is a 67 yo [place] male who came in to this facility for L AVF revision with Dr. Jansen / to Steal Syndrome. Is a dialysis patient in [place] whose regular HD is MWF. He did HD yesterday. Seen during HD and seems to be tolerating well. Using RIJ PermCath. BP is marginal at 93/56, but says this is his typical BP. PMHx includes DM, HTN, CHF s/p AICD, CAD. Says he does receive Zemplar and Epogen during his HD sessions. Interval History The patient was seen postdialysis today. No verbal complaints. Review of Systems General Constitutional: Fatigue Neuro Neuro: Dizziness Objective Data Data 08/10/17 08/11/17 19:00 07:00 Output Total 2500 ml Balance -2500 ml Hemodialysis 2500 ml Vital Signs Date Time Temp Pulse Resp B/P (MAP) Pulse Ox O2 Delivery O2 Flow Rate FiO2 08/10/17 08:08 97.6 61 16 89/54 (66) 90 08/10/17 08:01 93 Nasal Cannula 2.00 08/10/17 08:00 90 Room Air 08/10/17 08:00 59 08/10/17 07:05 59 08/10/17 06:00 60 08/10/17 05:00 59 08/10/17 04:00 61 08/10/17 03:00 100 Nasal Cannula 2.00 08/10/17 03:00 61 08/10/17 03:00 98.4 95 18 94/52 (66) 95 08/10/17 02:00 60 08/10/17 01:01 60 08/10/17 01:00 60 08/10/17 00:00 59 08/09/17 23:00 100 Nasal Cannula 2.00 08/09/17 23:00 59 08/09/17 23:00 97.9 63 18 100/51 (67) 100 08/09/17 22:00 60 08/09/17 21:00 59 08/09/17 20:00 59 08/09/17 19:20 98 Nasal Cannula 2.00 08/09/17 19:00 100 Nasal Cannula 2.00 08/09/17 19:00 59 08/09/17 19:00 98.1 62 18 91/50 (64) 100 08/09/17 18:05 59 08/09/17 17:30 93/50 (64) 85/53 (64) 85/52 (63) 08/09/17 17:00 59 08/09/17 16:04 59 08/09/17 15:00 97.6 60 16 91/53 (66) 100 08/09/17 15:00 59 08/09/17 15:00 99 Nasal Cannula 2.00 08/09/17 14:00 61 08/09/17 13:31 93 Nasal Cannula 2.00 08/09/17 13:09 64 08/09/17 12:00 71 -: 08/10/17 0437 08/10/17 0437 Tubes & Lines: Perma-Cath Physical Exam General Appearance: No Acute Distress, Comfortable Eyes Eye Exam: Sclera White Pulmonary Resp Exam: Clear Bilaterally, Breath Sounds Equal, No Distress Cardiology CV Exam: Regular, Normal Sinus Rhythm Gastrointestinal/Abdomen GI Exam: Soft, Non-Tender Integumentary Skin Exam: Clear, Warm Extremeties Extremities Exam: No Edema, Moderate Edema (one plus pitting edema involving left upper extremity adjacent to recently revised AV shunt. No erythema or drainage.) Neurologic Neuro Exam: Alert, Awake Psychiatric Psych Exam: Appropriate Responses Assessment/Plan Problem List: (1) ESRD (end stage renal disease) on dialysis ICD Codes: N18.6 - End stage renal disease; Z99.2 - Dependence on renal dialysis Plan: Status post Left upper extremity access revision & extremity distal revascularization Patient tolerated hemodialysis today. 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 This was discussed with him. Discharge clear from a renal point of view but defer to vascular surgery making final decision. Medications should be adjusted for the patient's ESRD. Avoid gadolinium. (2) Diabetes mellitus ICD Codes: E11.9 - Type 2 diabetes mellitus without complications Plan: Mgmt per primary (3) Cardiomyopathy ICD Codes: I42.9 - Cardiomyopathy, unspecified (4) Steal syndrome dialysis vascular access ICD Codes: T82.898A - Other specified complication of vascular prosthetic devices, implants and grafts, initial encounter Plan: s/p L AVF revision 08/07 Gerry Johnson MD Aug 10, 2017 11:55
--- NOTE | 2017-08-10 14:54 | PD.VS.DC ---
EveretteRenetta Gracia [facility] 08/10/17 1454: Discharge Summary Admission Date: Aug 07, 2017 at 06:26 Discharge Date: Aug 10, 2017 Admission Diagnosis: (1) AVF (arteriovenous fistula) (2) ESRD (end stage renal disease) on dialysis (3) Steal syndrome dialysis vascular access Discharge Diagnosis: (1) ESRD (end stage renal disease) on dialysis ICD Codes: N18.6 - End stage renal disease; Z99.2 - Dependence on renal dialysis (2) AVF (arteriovenous fistula) ICD Codes: I77.0 - Arteriovenous fistula, acquired Brief History from admission Pt with a hx of a failing L UE access and L UE access-related hand ischemia Procedure(s): L UE access revision and DRIL Significant Findings GENERAL: Alert in NAD SKIN: Warm and dry. Incision to Right LE and Left UE intact w/ surgical glue, mild erythema noted at the incision lines, no swelling or drainage GASTROINTESTINAL: Abdomen soft, non-tender, nondistended. MUSCULOSKELETAL: No cyanosis, or edema. Laboratory Tests Test 08/08/17 04:21 08/09/17 04:44 08/09/17 21:07 08/10/17 04:37 Red Blood Count 3.04 MIL/MM3 (4.50-5.90) 2.74 MIL/MM3 (4.50-5.90) 2.91 MIL/MM3 (4.50-5.90) Hemoglobin 9.2 GM/DL (13.0-17.0) 8.2 GM/DL (13.0-17.0) 8.8 GM/DL (13.0-17.0) Hematocrit 27.9 % (39.0-51.0) 25.6 % (39.0-51.0) 27.0 % (39.0-51.0) Blood Urea Nitrogen 21 MG/DL (7-18) 27 MG/DL (7-18) 37 MG/DL (7-18) Creatinine 4.61 MG/DL (0.60-1.30) 6.24 MG/DL (0.60-1.30) 7.32 MG/DL (0.60-1.30) Random Glucose 134 MG/DL (74-106) 153 MG/DL (74-106) 146 MG/DL (74-106) Calcium Level 7.8 MG/DL (8.5-10.1) 8.3 MG/DL (8.5-10.1) 8.4 MG/DL (8.5-10.1) Estimat Glomerular Filtration Rate 13 ML/MIN (>89) 9 ML/MIN (>89) 8 ML/MIN (>89) Sodium Level 133 MEQ/L (136-145) 131 MEQ/L (136-145) Chloride Level 97 MEQ/L (98-107) 95 MEQ/L (98-107) Platelet Count 136 TH/MM3 (150-450) 138 TH/MM3 (150-450) Albumin 2.7 GM/DL (3.4-5.0) Phosphorus Level 6.5 MG/DL (2.5-4.9) Hospital Course: Pt with a hx of a failing L UE access and L UE access-related hand ischemia Pt S/P L UE access revision and dril Pt developed dizziness episodes and hypotension with transfers (3 episodes) POD 2 Medical service consulted POD 2 and pt was cleared to rehab center Arranged PO f/u Pt w/o CP, SOB and denies dizziness episodes currently Pt to be d/c to rehab facility Allergies Coded Allergies Type Severity Reaction Last Updated Verified egg Allergy Mild 08/07/17 No adhesive Adverse Reaction Severe SKIN BREAKDOWN/ULCERS 08/07/17 No Uncoded Allergies Type Severity Reaction Last Updated Verified MSG Allergy Intermediate bowel problems 08/02/17 08/08/17 08/08/17 08/09/17 08/09/17 08/10/17 08/10/17 06:00 18:00 06:00 18:00 06:00 18:00 Intake Total 680 ml 640 ml 300 ml 420 ml 240 ml Output Total 2000 ml 0 ml 0 ml 2500 ml Balance -1320 ml 640 ml 300 ml 420 ml 240 ml -2500 ml Intake Oral 680 ml 640 ml 300 ml 420 ml 240 ml Output Urine Total 0 ml 0 ml 0 ml Hemodialysis 2000 ml 2500 ml # Bowel Movements 0 0 0 Laboratory Tests Test 08/08/17 04:21 08/09/17 04:44 08/09/17 21:07 08/10/17 04:37 White Blood Count 7.4 TH/MM3 7.5 TH/MM3 7.9 TH/MM3 Red Blood Count 3.04 MIL/MM3 2.74 MIL/MM3 2.91 MIL/MM3 Hemoglobin 9.2 GM/DL 8.2 GM/DL 8.8 GM/DL Hematocrit 27.9 % 25.6 % 27.0 % Mean Corpuscular Volume 92.0 FL 93.4 FL 92.9 FL Mean Corpuscular Hemoglobin 30.2 PG 29.9 PG 30.2 PG Mean Corpuscular Hemoglobin Concent 32.8 % 32.0 % 32.5 % Red Cell Distribution Width 16.8 % 16.9 % 16.9 % Platelet Count 157 TH/MM3 136 TH/MM3 138 TH/MM3 Mean Platelet Volume 9.2 FL 9.8 FL 9.9 FL Blood Urea Nitrogen 21 MG/DL 27 MG/DL 37 MG/DL Creatinine 4.61 MG/DL 6.24 MG/DL 7.32 MG/DL Random Glucose 134 MG/DL 153 MG/DL 146 MG/DL Calcium Level 7.8 MG/DL 8.3 MG/DL 8.4 MG/DL Sodium Level 138 MEQ/L 133 MEQ/L 131 MEQ/L Potassium Level 4.5 MEQ/L 5.1 MEQ/L 5.0 MEQ/L Chloride Level 101 MEQ/L 97 MEQ/L 95 MEQ/L Carbon Dioxide Level 27.8 MEQ/L 25.6 MEQ/L 24.8 MEQ/L Anion Gap 9 MEQ/L 10 MEQ/L 11 MEQ/L Estimat Glomerular Filtration Rate 13 ML/MIN 9 ML/MIN 8 ML/MIN Albumin 2.7 GM/DL Phosphorus Level 6.5 MG/DL Orders Procedure Category Date Status Time Am Admit Pre Op Care [facility] 08/07/17 Complete Blood Flow Rate BIRD 08/07/17 In Process 17:32 Dialysate Flow Rate BIRD 08/07/17 In Process 17:32 Dialyzer BIRD 08/07/17 In Process 17:32 Concentrate BIRD 08/07/17 In Process 17:32 Acid Concentrate BIRD 08/07/17 In Process 17:32 Length Of Dialysis BIRD 08/07/17 In Process 17:32 Frequency Of Dialysis BIRD 08/07/17 In Process 17:32 Dialysis Obtain BIRD 08/07/17 In Process 17:32 Needle Size BIRD 08/07/17 In Process 17:32 Dialysis Schedule BIRD 08/07/17 In Process 17:32 Resp Oxygen [facility] C RSP 08/07/17 Logged Titrat 1-4 L Dialysis Weight BIRD 08/07/17 In Process 17:32 ^ Obtain As Needed BIRD 08/07/17 In Process 17:32 Sodium Chlor 0.9% MED 08/07/17 In Process 1000 Ml Inj (Ns 1000 M 17:32 Heparin Inj (Heparin MED 08/07/17 In Process Inj) 17:45 Sodium Chlor 0.9% MED 08/07/17 In Process 1000 Ml Inj (Ns 1000 M 17:32 Sodium Chlor 0.9% MED 08/07/17 In Process 1000 Ml Inj (Ns 1000 M 17:32 Mannitol Inj MED 08/07/17 In Process (Mannitol Inj) 17:45 Albumin 25% Inj MED 08/07/17 In Process (Albumin 25% Inj) 17:45 Sodium Chloride 0.9% MED 08/07/17 In Process Flush (Ns Flush) 17:45 Heparin Inj (Heparin MED 08/07/17 In Process Inj) 17:45 Gentamicin (Dialysis) MED 08/07/17 In Process Inj (Gentamicin (D 17:45 Ondansetron Inj MED 08/07/17 In Process (Zofran Inj) 17:45 Acetaminophen MED 08/07/17 In Process (Tylenol) 17:45 Diphenhydramine MED 08/07/17 In Process (Benadryl) 17:45 Nitroglycerin Sl MED 08/07/17 In Process (Nitrostat Sl) 17:45 Clonidine (Catapres) MED 08/07/17 In Process 17:45 Gelatin 12 Mm/7 Mm MED 08/07/17 In Process Top (Gelfoam 12 Mm/7 17:45 Consult Pt Eval & PT 08/08/17 Logged Treat 08:50 (Hub Use Only)Inp Phy CONS 08/08/17 Transmitted Cons/Ref (Hub Use Only)Inp Phy CONS 08/08/17 Transmitted Cons/Ref Acetaminophen MED 08/08/17 In Process (Tylenol) 14:00 Diet Renal DIET 08/08/17 Transmitted Dinner Basic Metabolic Panel LAB 08/09/17 Complete (Bmp) 06:00 Bisacodyl Ec MED 08/09/17 In Process (Dulcolax Ec) 08:00 Consult Hospitalist CONS 08/09/17 Transmitted (Hub Use Only)Inp Phy CONS 08/09/17 Transmitted Cons/Ref Midodrine (Proamatine) MED 08/09/17 In Process 17:00 Orthostatic Vital TX 08/09/17 Transmitted Signs 15:58 Cbc No Diff, Includes LAB 08/09/17 Complete Plts 16:29 Consult Cardiology CONS 08/09/17 Transmitted Cbc No Diff, Includes LAB 08/10/17 Complete Plts 06:00 Renal Functional Panel LAB 08/10/17 Complete 06:00 Epoetin Hayden Inj MED 08/09/17 In Process (Epogen Inj) 18:00 (Hub Use Only)Inp Phy CONS 08/09/17 Transmitted Cons/Ref Heparin Inj (Heparin MED 08/10/17 Complete Inj) 06:00 Heparin Inj (Heparin MED 08/10/17 In Process Inj) 06:00 Attending Discharge DISCHARGE 08/10/17 Transmitted Order Vital Signs Date Time Temp Pulse Resp B/P (MAP) Pulse Ox O2 Delivery O2 Flow Rate FiO2 08/10/17 14:01 63 08/10/17 13:19 61 08/10/17 12:15 97.8 61 18 113/53 (73) 98 08/10/17 12:15 98 Room Air 08/10/17 08:08 97.6 61 16 89/54 (66) 90 08/10/17 08:01 93 Nasal Cannula 2.00 08/10/17 08:00 90 Room Air 08/10/17 08:00 59 08/10/17 07:05 59 08/10/17 06:00 60 08/10/17 05:00 59 08/10/17 04:00 61 08/10/17 03:00 100 Nasal Cannula 2.00 08/10/17 03:00 61 08/10/17 03:00 98.4 95 18 94/52 (66) 95 08/10/17 02:00 60 08/10/17 01:01 60 08/10/17 01:00 60 08/10/17 00:00 59 08/09/17 23:00 100 Nasal Cannula 2.00 08/09/17 23:00 59 08/09/17 23:00 97.9 63 18 100/51 (67) 100 08/09/17 22:00 60 08/09/17 21:00 59 08/09/17 20:00 59 08/09/17 19:20 98 Nasal Cannula 2.00 08/09/17 19:00 100 Nasal Cannula 2.00 08/09/17 19:00 59 08/09/17 19:00 98.1 62 18 91/50 (64) 100 08/09/17 18:05 59 08/09/17 17:30 93/50 (64) 85/53 (64) 85/52 (63) 08/09/17 17:00 59 08/09/17 16:04 59 08/09/17 15:00 97.6 60 16 91/53 (66) 100 08/09/17 15:00 59 08/09/17 15:00 99 Nasal Cannula 2.00 08/09/17 14:00 61 08/09/17 13:31 93 Nasal Cannula 2.00 08/09/17 13:09 64 08/09/17 12:00 71 08/09/17 11:00 68 08/09/17 11:00 90 Nasal Cannula 2.00 08/09/17 11:00 98.6 64 15 83/53 (63) 90 08/09/17 10:05 65 08/09/17 09:00 75 08/09/17 08:00 69 08/09/17 08:00 98.9 69 16 91/53 (66) 90 08/09/17 08:00 90 Room Air 08/09/17 07:02 68 08/09/17 06:00 64 08/09/17 05:00 66 08/09/17 04:00 70 08/09/17 03:20 95 Room Air 08/09/17 03:20 97.7 66 16 105/53 (70) 95 08/09/17 03:00 70 08/09/17 02:00 61 08/09/17 01:00 61 08/09/17 00:00 60 08/08/17 23:30 98.3 60 16 92/51 (65) 100 08/08/17 23:30 100 Nasal Cannula 2.00 08/08/17 23:00 60 08/08/17 22:00 59 08/08/17 21:00 62 08/08/17 20:00 64 08/08/17 19:50 Nasal Cannula 2.00 08/08/17 19:45 100 Nasal Cannula 3.00 08/08/17 19:45 98.0 65 16 93/50 (64) 100 08/08/17 19:00 66 08/08/17 18:06 65 08/08/17 17:34 100 Nasal Cannula 2.00 08/08/17 17:18 66 08/08/17 16:00 67 08/08/17 15:55 66 08/08/17 15:55 98.6 66 18 90/51 (64) 100 08/08/17 15:55 100 Nasal Cannula 3.00 08/08/17 14:09 72 08/08/17 12:25 69 08/08/17 11:00 67 08/08/17 11:00 98.4 72 18 82/45 (57) 98 08/08/17 11:00 17 08/08/17 11:00 98 Nasal Cannula 2.00 08/08/17 10:34 Nasal Cannula 2.00 08/08/17 10:00 77 08/08/17 09:00 74 08/08/17 08:00 66 08/08/17 07:00 70 08/08/17 07:00 98 Nasal Cannula 2.00 08/08/17 07:00 98.3 71 17 100/50 (67) 98 08/08/17 06:00 69 08/08/17 05:00 68 08/08/17 04:00 74 08/08/17 03:20 99 Nasal Cannula 2.00 08/08/17 03:20 98.6 72 16 106/55 (72) 99 08/08/17 03:00 69 08/08/17 02:00 70 08/08/17 01:00 74 08/08/17 00:00 66 08/07/17 23:00 98.1 74 16 101/50 (67) 100 08/07/17 23:00 100 Nasal Cannula 2.00 08/07/17 23:00 62 08/07/17 22:00 68 08/07/17 21:00 66 08/07/17 20:03 93 Nasal Cannula 2.00 08/07/17 20:00 97.5 68 18 105/51 (69) 89 08/07/17 20:00 89 Room Air 08/07/17 20:00 66 08/07/17 15:34 97.1 60 16 105/55 (72) 94 08/07/17 15:00 59 Discharge Condition: Good Discharge Disposition: Discharge to SNF Discharge Instructions: Leave incisions open to air Do not apply any creams or ointments to incisions as it may loosen the surgical glue Renal diet in encouraged Pt will need assistance with transfers (hx of dizziness episodes with transfers) Call to report any R/D/S fever or chills Renetta SANCHEZ [facility]vin [phone] Any questions or concerns: Call [facility] at [facility] [phone] Issa Jansen MD 08/12/17 0827: Discharge Summary Discharge Date: Aug 11, 2017 Admission Diagnosis: Discharge Diagnosis: Renetta Gaviria Aug 10, 2017 14:54 Issa Jansen MD Aug 12, 2017 08:27
--- NOTE | 2017-08-10 15:53 | HHI.PR ---
Subjective Remarks Follow-up for dizziness/ hypotension Patient stated that his dizziness improves a little. Denied any chest pain, shortness of breathing, palpitation. Patient originally was physical home with home health but he stated that he is not able to ambulate on his own. His nurse is also stated that patient unable to ambulate on his own. Objective Vitals Vital Signs Date Time Temp Pulse Resp B/P (MAP) Pulse Ox O2 Delivery O2 Flow Rate FiO2 08/10/17 14:01 63 08/10/17 13:19 61 08/10/17 12:15 97.8 61 18 113/53 (73) 98 08/10/17 12:15 98 Room Air 08/10/17 08:08 97.6 61 16 89/54 (66) 90 08/10/17 08:01 93 Nasal Cannula 2.00 08/10/17 08:00 90 Room Air 08/10/17 08:00 59 08/10/17 07:05 59 08/10/17 06:00 60 08/10/17 05:00 59 08/10/17 04:00 61 08/10/17 03:00 100 Nasal Cannula 2.00 08/10/17 03:00 61 08/10/17 03:00 98.4 95 18 94/52 (66) 95 08/10/17 02:00 60 08/10/17 01:01 60 08/10/17 01:00 60 08/10/17 00:00 59 08/09/17 23:00 100 Nasal Cannula 2.00 08/09/17 23:00 59 08/09/17 23:00 97.9 63 18 100/51 (67) 100 08/09/17 22:00 60 08/09/17 21:00 59 08/09/17 20:00 59 08/09/17 19:20 98 Nasal Cannula 2.00 08/09/17 19:00 100 Nasal Cannula 2.00 08/09/17 19:00 59 08/09/17 19:00 98.1 62 18 91/50 (64) 100 08/09/17 18:05 59 08/09/17 17:30 93/50 (64) 85/53 (64) 85/52 (63) 08/09/17 17:00 59 08/09/17 16:04 59 I/O 10/26/08/09/17 08/09/17 08/10/17 08/10/17 08/10/17 07:00 15:00 23:00 07:00 15:00 23:00 Intake Total 300 ml 420 ml 240 ml Output Total 0 ml 0 ml 2500 ml Balance 300 ml 420 ml 240 ml -2500 ml Intake Oral 300 ml 420 ml 240 ml Output Urine Total 0 ml 0 ml Hemodialysis 2500 ml # Bowel Movements 0 Result Diagram: 08/10/17 0437 08/10/17 043 Medications and IVs Current Medications Lactated Ringer's 1,000 ml @ 30 mls/hr Q24H PRN IV SEE LABEL COMMENTS Last administered on 08/07/17 07:40; Start 08/07/17 at 07:00; Stop 08/10/17 at 06 :59; Status DC Sodium Chloride 500 ml @ 30 mls/hr [id number] PRN IV SEE LABEL COMMENTS; Start at 07:00; Stop 08/10/17 at 06:59; Status DC Metoprolol Tartrate (Lopressor) 25 mg UNIVERSAL GRINDER OPERATOR PRN PO SEE LABEL COMMENTS; Start 08/07/17 at 07:00; Stop 08/10/17 at 06:59; Status DC Povidone Iodine (Betadine 5% Antisepsis Kit) 1 applic UNIVERSAL GRINDER OPERATOR PRN EACH NARE SEE LABEL COMMENTS Last administered on 08/07/17 07:50; Start 08/07/17 at 07: 00; Stop 08/10/17 at 06:59; Status DC Chlorhexidine Gluconate (Chlorhexidine 2% Cloth) 3 pack UNIVERSAL GRINDER OPERATOR PRN TOPICAL SEE LABEL COMMENTS; Start 08/07/17 at 07:00; Stop 08/10/17 at 06:59; Status DC Insulin Human Regular (NovoLIN R INJ) See Protocol Table ... UNIVERSAL GRINDER OPERATOR PRN SQ SEE PROTOCOL TABLE; Start 08/07/17 at 07:00; Stop 08/10/17 at 06:59; Status DC Protamine Sulfate (Protamine Sulfate Inj) 50 mg STK-MED ONCE .ROUTE Last administered on 08/07/17 11:22; Start 08/07/17 at 07:00; Stop 08/07/17 at 07 :01; Status DC Heparin Sodium (Porcine) (Heparin Inj) 10,000 units STK-MED ONCE .ROUTE Last administered on 08/07/17 10:31; Start 08/07/17 at 07:00; Stop 08/07/17 at 07 :01; Status DC Bupivacaine HCl (Marcaine Pf 0.5% Inj) 30 ml STK-MED ONCE .ROUTE ; Start at 07:01; Stop 08/07/17 at 07:02; Status DC Thrombin (Thrombin Top [place]) 20,000 units STK-MED ONCE .ROUTE Last administered on 08/07/17 11:09; Start 08/07/17 at 07:01; Stop 08/07/17 at 07 :02; Status DC Heparin Sodium/ Sodium Chloride 500 ml @ As Directed STK-MED ONCE .ROUTE Last administered on 08/07/17 09:21; Start 08/07/17 at 07:01; Stop 08/07/17 at 07 :02; Status DC Oxycodone HCl (Roxicodone) 5 mg Q4H PRN PO PAIN SCALE 1 TO 5 Last administered on 08/08/17 09:49; Start 08/07/17 at 08:45; Status Future Hold Hydromorphone HCl (Dilaudid) 2 mg Q4H PRN PO PAIN SCALE 6 TO 10; Start at 08:45; Status Future Hold Morphine Sulfate (Morphine Inj) 2 mg Q1H PRN IV PUSH BREAKTHROUGH PAIN; Start 08/07/17 at 08:45; Status Future Hold Heparin Sodium (Porcine) (Heparin Inj) 5,000 units Q8H SQ Last administered on 08/09/17 22:12; Start 08/08/17 at 11:00; Stop 08/10/17 at 05:22; Status DC Bumetanide (Bumetanide) 2 mg DAILY PO Last administered on 08/09/17 08:44; Start 08/07/17 at 10:30; Stop 08/09/17 at 15:23; Status DC Carvedilol (Coreg) 12.5 mg BID PO Last administered on 08/09/17 22:13; Start 08/07/17 at 11:00; Stop 08/10/17 at 09:44; Status DC Gabapentin (Neurontin) 100 mg TID PO Last administered on 08/10/17 13:32; Start 08/07/17 at 10:30 Pantoprazole Sodium (Protonix) 20 mg DAILY PO Last administered on 08/09/17 08:44; Start 08/07/17 at 09:00 Thyroid ([place] Thyroid) 60 mg DAILY@0600 PO Last administered on 08/10/17 06 :14; Start 08/07/17 at 06:00 Non-Formulary Medication 200 mg DAILY PO ; Start 08/07/17 at 09:00; Status UNV Aspirin (Aspirin) 325 mg DAILY PO Last administered on 08/09/17 08:44; Start 08/07/17 at 11:00 Dextrose (D50w (Vial) Inj) 50 ml UNSCH PRN IV PUSH HYPOGLYCEMIA-SEE COMMENTS; Start 08/07/17 at 08:45 Glucagon (Glucagon Inj) 1 mg UNSCH PRN OTHER HYPOGLYCEMIA-SEE COMMENTS; Start 08/07/17 at 08:45 Insulin Aspart (NovoLOG SUPPLEMENTAL SCALE) 1 ACHS SLIDING SCALE SQ Last administered on 08/10/17 08:30; Start 08/07/17 at 12:00 Vancomycin HCl (Vancomycin Inj) 1,000 mg STK-MED ONCE .ROUTE Last administered on 08/07/17 09:15; Start 08/07/17 at 09:01; Stop 08/07/17 at 09:02; Status DC Ondansetron HCl (*ZOFRAN INJ PERIprocedural ONLY) 4 mg STK-MED ONCE .ROUTE Last administered on 08/07/17 12:46; Start 08/07/17 at 12:45; Stop 08/07/17 at 12:46; Status DC Ondansetron HCl (Zofran Inj) 4 mg Q6H PRN IV PUSH NAUSEA OR VOMITING; Start at 14:15 Miscellaneous Information ALL NURSING DEPARTME... UNSCH PRN .XX SEE LABEL COMMENTS; Start 08/07/17 at 12:29; Stop 08/08/17 at 12:28; Status DC Sodium Chloride 1,000 ml @ 0 mls/hr Q0M PRN OTHER For Prime & Rinse Back Last administered on 08/10/17 09:30; Start 08/07/17 at 17:32 Heparin Sodium (Porcine) (Heparin Inj) 8,000 units UNSCH PRN IV FLUSH WITH DIALYSIS; Start 08/07/17 at 17:45 Sodium Chloride 1,000 ml @ 200 mls/hr Q5H PRN IV WITH DIALYSIS; Start at 17:32 Sodium Chloride 1,000 ml @ 0 mls/hr Q0M PRN OTHER WITH DIALYSIS; Start at 17:32 Mannitol (Mannitol Inj) 12.5 gm UNSCH PRN IV WITH DIALYSIS Last administered on 08/10/17 08:50; Start 08/07/17 at 17:45 Albumin Human 100 ml @ 60 mls/hr UNSCH PRN IV WITH DIALYSIS Last administered on 08/10/17 09:30; Start 08/07/17 at 17:45 Sodium Chloride (NS Flush) 5 ml UNSCH PRN IV FLUSH WITH DIALYSIS; Start at 17:45 Heparin Sodium (Porcine) (Heparin Inj) UNSCH PRN .XX WITH DIALYSIS Last administered on 08/10/17 09:30; Start 08/07/17 at 17:45 Gentamicin Sulfate (Gentamicin (Dialysis) Inj) 20 mg UNSCH PRN OTHER WITH DIALYSIS Last administered on 08/10/17 09:30; Start 08/07/17 at 17:45 Ondansetron HCl (Zofran Inj) 4 mg UNSCH PRN IV PUSH WITH DIALYSIS; Start 08/07 at 17:45 Acetaminophen (Tylenol) 650 mg UNSCH PRN PO for headach, pain, temp > 101F; Start 08/07/17 at 17:45 Diphenhydramine HCl (Benadryl) 25 mg UNSCH PRN PO for hives/itching/anaphylaxis ; Start 08/07/17 at 17:45 Nitroglycerin (Nitrostat Sl) 0.4 mg UNSCH PRN SL CHEST PAIN; Start 08/07/17 at 17:45 Clonidine (Catapres) 0.1 mg UNSCH PRN PO for BP > 180/100 X 2 readings; Start 08/07/17 at 17:45 Gelatin (Gelfoam 12 Mm/7 Mm Top) 1 foam UNSCH PRN TOP SEE LABEL COMMENTS; Start 08/07/17 at 17:45 Acetaminophen (Tylenol) 650 mg Q4H PRN PO PAIN 1-10 Last administered on 06:18; Start 08/08/17 at 14:00 Bisacodyl (Dulcolax Ec) 10 mg DAILY PRN PO constipation Last administered on 08:44; Start 08/09/17 at 08:00 Midodrine (Proamatine) 5 mg TID@07,12,17 PO Last administered on 08/10/17 13: 32; Start 08/09/17 at 17:00 Epoetin Hayden (Epogen Inj) 10,000 units UNSCH PRN IV PUSH WITH DIALYSIS; Start 08/09/17 at 18:00 Heparin Sodium (Porcine) (Heparin Inj) 5,000 units Q8H SQ ; Start 08/10/17 at 06:00; Stop 08/10/17 at 06:00; Status DC Heparin Sodium (Porcine) (Heparin Inj) 5,000 units Q8H SQ Last administered on 08/10/17 13:33; Start 08/10/17 at 06:00 A/P Assessment and Plan This is a 67-year-old male past medical history of end-stage renal disease on dialysis, type 2 diabetes, hypertension, anemia secondary to chronic kidney disease, and coronary disease who was initially admitted for failed left AV fistula [facility] consulted due to hypotension and dizziness Left upper extremity failing access/Access related hand ischemia -Status post Left upper extremity access revision and Left upper extremity distal revascularization, interval ligation. -Management per vascular surgeon. Lightheadedness -Dizziness sounds more like a lightheadedness. most likely secondary to hypotension. Since patient had a procedure he had multiple hypotensive readings. May be due to decreased oral intake. -Based on interview and labs very unlikely this is infectious. Orthostatics negative. -Community Relations Specialist agreed to continue with Midrin. Hypotension -See treatment as above. -Bumex was discontinued. -Continue with Midrin. ESRD -Patient receives HD MWF -Continue management per agricultural education professor. Steal Syndrome/DM/HTN/Anemia of Renal Disease/CHF/CAD/status post pacemaker placement -Continue her current regimen. -Patient pacemaker was interrogated. DVT prophylaxis -SCDs Discharge Planning Per patient's nurse she was told after dialysis patient will be discharge with home health but patient unable to ambulate. Patient stated prior to hospitalization he was able to ambulate on his own. Recommend patient to be discharged to SNF. Patient's nurse was told to notify case management of my recommendations. Patient in agreement to be placed in the SNF. His nurse was at the bedside during the interview. Kavitha Benítez MD Aug 10, 2017 15:53
[2017-08-11] VITALS (18 sets, daily range): BP systolic 94–100; BP diastolic 51–55; PULSE 59–93; RESP 16–18; TEMP 97.5–98.2; O2SAT 93–99
[2017-08-11] MEDS: MIDODRINE 5 MG TAB PO SCH ×2 (05:55→12:25)
[2017-08-11] MEDS: THYROID 60 MG TAB PO SCH (05:55)
[2017-08-11] MEDS: HEPARIN SODIUM - SQ 10,000 UNITS/ML VIAL SQ SCH ×2 (05:55→14:44)
[2017-08-11] MEDS: INSULIN ASPART SUPPLEMENTAL SCALE SQ SCH ×2 (08:00→12:00)
[2017-08-11] MEDS: PANTOPRAZOLE SOD 20 MG DELAYED RELEASE TAB PO SCH (08:34)
[2017-08-11] MEDS: GABAPENTIN 100 MG CAP PO SCH ×2 (08:34→12:25)
[2017-08-11] MEDS: ASPIRIN 325 MG TAB PO SCH (08:35)
--- NOTE | 2017-08-11 11:04 | HHI.PR ---
Subjective Remarks f/u for dizziness and hypotension. Patient stated that he is doing a lot better today. He stated that he feels a lot stronger. Doesn't feel dizziness as much. Systolic blood pressure has been better in the 90s. There was a fall reported yesterday. Spoke to patient he stated that he did not fall he slid off his chair. Discussed with patient's nurse stated that patient did not fall and slid off his chair. She stated that patient is doing very well today. She also stated that they're waiting for authorization for a SNF. Objective Vitals Vital Signs Date Time Temp Pulse Resp B/P (MAP) Pulse Ox O2 Delivery O2 Flow Rate FiO2 08/11/17 10:00 59 08/11/17 09:00 60 08/11/17 08:00 60 08/11/17 07:00 97.5 60 17 95/51 (66) 95 08/11/17 07:00 95 Nasal Cannula 2.00 08/11/17 07:00 60 08/11/17 06:13 60 08/11/17 05:04 59 08/11/17 04:04 61 08/11/17 03:27 96 Nasal Cannula 2.00 08/11/17 03:24 97.9 60 16 94/52 (66) 96 08/11/17 03:21 60 08/11/17 02:03 59 08/11/17 01:01 59 08/11/17 00:09 59 08/10/17 23:00 60 08/10/17 23:00 96 Nasal Cannula 2.00 08/10/17 23:00 98.3 60 16 98/51 (67) 100 08/10/17 22:00 60 08/10/17 21:00 63 08/10/17 20:00 62 08/10/17 19:00 100 Nasal Cannula 2.00 08/10/17 19:00 97.9 60 16 106/51 (69) 100 08/10/17 19:00 62 08/10/17 18:08 63 08/10/17 17:02 63 08/10/17 16:09 65 08/10/17 15:40 64 08/10/17 15:40 97.8 64 18 116/56 (76) 97 08/10/17 15:40 97 Nasal Cannula 2.00 08/10/17 14:01 63 08/10/17 13:19 61 08/10/17 12:15 97.8 61 18 113/53 (73) 98 08/10/17 12:15 98 Room Air I/O 08/10/17 08/10/17 08/10/17 08/11/17 08/11/17 08/11/17 07:00 15:00 23:00 07:00 15:00 23:00 Intake Total 240 ml 480 ml 120 ml Output Total 0 ml 2500 ml 0 ml 0 ml Balance 240 ml -2500 ml 480 ml 120 ml Intake Oral 240 ml 480 ml 120 ml Output Urine Total 0 ml 0 ml 0 ml Hemodialysis 2500 ml # Bowel Movements 0 1 Result Diagram: 08/10/1743608/10/17436 Objective Remarks GENERAL: This is a well-nourished, well-developed patient, in no apparent distress. SKIN: L arm with revision of fistula + bruit. CARDIOVASCULAR: Regular rate and rhythm without murmurs, gallops, or rubs. RESPIRATORY: Clear to auscultation. Breath sounds equal bilaterally. No wheezes , rales, or rhonchi. GASTROINTESTINAL: Abdomen soft, non-tender, nondistended. No hepato-splenomegaly , or palpable masses. No guarding. MUSCULOSKELETAL: Extremities without clubbing, cyanosis, or edema. No joint tenderness, effusion, or edema noted. No calf tenderness. Negative Homans sign bilaterally. NEUROLOGICAL: Very alert today. Medications and IVs Current Medications Lactated Ringer's 1,000 ml @ 30 mls/hr Q24H PRN IV SEE LABEL COMMENTS Last administered on 08/07/17 07:40; Start 08/07/17 at 07:00; Stop 08/10/17 at 06 :59; Status DC Sodium Chloride 500 ml @ 30 mls/hr [id number] PRN IV SEE LABEL COMMENTS; Start at 07:00; Stop 08/10/17 at 06:59; Status DC Metoprolol Tartrate (Lopressor) 25 mg CASE MONITOR PRN PO SEE LABEL COMMENTS; Start 08/07/17 at 07:00; Stop 08/10/17 at 06:59; Status DC Povidone Iodine (Betadine 5% Antisepsis Kit) 1 applic CASE MONITOR PRN EACH NARE SEE LABEL COMMENTS Last administered on 08/07/17 07:50; Start 08/07/17 at 07: 00; Stop 08/10/17 at 06:59; Status DC Chlorhexidine Gluconate (Chlorhexidine 2% Cloth) 3 pack CASE MONITOR PRN TOPICAL SEE LABEL COMMENTS; Start 08/07/17 at 07:00; Stop 08/10/17 at 06:59; Status DC Insulin Human Regular (NovoLIN R INJ) See Protocol Table ... CASE MONITOR PRN SQ SEE PROTOCOL TABLE; Start 08/07/17 at 07:00; Stop 08/10/17 at 06:59; Status DC Protamine Sulfate (Protamine Sulfate Inj) 50 mg STK-MED ONCE .ROUTE Last administered on 08/07/17 11:22; Start 08/07/17 at 07:00; Stop 08/07/17 at 07 :01; Status DC Heparin Sodium (Porcine) (Heparin Inj) 10,000 units STK-MED ONCE .ROUTE Last administered on 08/07/17 10:31; Start 08/07/17 at 07:00; Stop 08/07/17 at 07 :01; Status DC Bupivacaine HCl (Marcaine Pf 0.5% Inj) 30 ml STK-MED ONCE .ROUTE ; Start at 07:01; Stop 08/07/17 at 07:02; Status DC Thrombin (Thrombin Top [place]) 20,000 units STK-MED ONCE .ROUTE Last administered on 08/07/17 11:09; Start 08/07/17 at 07:01; Stop 08/07/17 at 07 :02; Status DC Heparin Sodium/ Sodium Chloride 500 ml @ As Directed STK-MED ONCE .ROUTE Last administered on 08/07/17 09:21; Start 08/07/17 at 07:01; Stop 08/07/17 at 07 :02; Status DC Oxycodone HCl (Roxicodone) 5 mg Q4H PRN PO PAIN SCALE 1 TO 5 Last administered on 08/08/17 09:49; Start 08/07/17 at 08:45; Status Future Hold Hydromorphone HCl (Dilaudid) 2 mg Q4H PRN PO PAIN SCALE 6 TO 10; Start at 08:45; Status Future Hold Morphine Sulfate (Morphine Inj) 2 mg Q1H PRN IV PUSH BREAKTHROUGH PAIN; Start 08/07/17 at 08:45; Status Future Hold Heparin Sodium (Porcine) (Heparin Inj) 5,000 units Q8H SQ Last administered on 08/09/17 22:12; Start 08/08/17 at 11:00; Stop 08/10/17 at 05:22; Status DC Bumetanide (Bumetanide) 2 mg DAILY PO Last administered on 08/09/17 08:44; Start 08/07/17 at 10:30; Stop 08/09/17 at 15:23; Status DC Carvedilol (Coreg) 12.5 mg BID PO Last administered on 08/09/17 22:13; Start 08/07/17 at 11:00; Stop 08/10/17 at 09:44; Status DC Gabapentin (Neurontin) 100 mg TID PO Last administered on 08/11/17 08:34; Start 08/07/17 at 10:30 Pantoprazole Sodium (Protonix) 20 mg DAILY PO Last administered on 08/11/17 08:34; Start 08/07/17 at 09:00 Thyroid ([place] Thyroid) 60 mg DAILY@0600 PO Last administered on 08/11/17 05 :55; Start 08/07/17 at 06:00 Non-Formulary Medication 200 mg DAILY PO ; Start 08/07/17 at 09:00; Status UNV Aspirin (Aspirin) 325 mg DAILY PO Last administered on 08/09/17 08:44; Start 08/07/17 at 11:00 Dextrose (D50w (Vial) Inj) 50 ml UNSCH PRN IV PUSH HYPOGLYCEMIA-SEE COMMENTS; Start 08/07/17 at 08:45 Glucagon (Glucagon Inj) 1 mg UNSCH PRN OTHER HYPOGLYCEMIA-SEE COMMENTS; Start 08/07/17 at 08:45 Insulin Aspart (NovoLOG SUPPLEMENTAL SCALE) 1 ACHS SLIDING SCALE SQ Last administered on 08/10/17 21:00; Start 08/07/17 at 12:00 Vancomycin HCl (Vancomycin Inj) 1,000 mg STK-MED ONCE .ROUTE Last administered on 08/07/17 09:15; Start 08/07/17 at 09:01; Stop 08/07/17 at 09:02; Status DC Ondansetron HCl (*ZOFRAN INJ PERIprocedural ONLY) 4 mg STK-MED ONCE .ROUTE Last administered on 08/07/17 12:46; Start 08/07/17 at 12:45; Stop 08/07/17 at 12:46; Status DC Ondansetron HCl (Zofran Inj) 4 mg Q6H PRN IV PUSH NAUSEA OR VOMITING; Start at 14:15 Miscellaneous Information ALL NURSING DEPARTME... UNSCH PRN .XX SEE LABEL COMMENTS; Start 08/07/17 at 12:29; Stop 08/08/17 at 12:28; Status DC Sodium Chloride 1,000 ml @ 0 mls/hr Q0M PRN OTHER For Prime & Rinse Back Last administered on 08/10/17 09:30; Start 08/07/17 at 17:32 Heparin Sodium (Porcine) (Heparin Inj) 8,000 units UNSCH PRN IV FLUSH WITH DIALYSIS; Start 08/07/17 at 17:45 Sodium Chloride 1,000 ml @ 200 mls/hr Q5H PRN IV WITH DIALYSIS; Start at 17:32 Sodium Chloride 1,000 ml @ 0 mls/hr Q0M PRN OTHER WITH DIALYSIS; Start at 17:32 Mannitol (Mannitol Inj) 12.5 gm UNSCH PRN IV WITH DIALYSIS Last administered on 08/10/17 08:50; Start 08/07/17 at 17:45 Albumin Human 100 ml @ 60 mls/hr UNSCH PRN IV WITH DIALYSIS Last administered on 08/10/17 09:30; Start 08/07/17 at 17:45 Sodium Chloride (NS Flush) 5 ml UNSCH PRN IV FLUSH WITH DIALYSIS; Start at 17:45 Heparin Sodium (Porcine) (Heparin Inj) UNSCH PRN .XX WITH DIALYSIS Last administered on 08/10/17 09:30; Start 08/07/17 at 17:45 Gentamicin Sulfate (Gentamicin (Dialysis) Inj) 20 mg UNSCH PRN OTHER WITH DIALYSIS Last administered on 08/10/17 09:30; Start 08/07/17 at 17:45 Ondansetron HCl (Zofran Inj) 4 mg UNSCH PRN IV PUSH WITH DIALYSIS; Start 08/07 at 17:45 Acetaminophen (Tylenol) 650 mg UNSCH PRN PO for headach, pain, temp > 101F; Start 08/07/17 at 17:45 Diphenhydramine HCl (Benadryl) 25 mg UNSCH PRN PO for hives/itching/anaphylaxis ; Start 08/07/17 at 17:45 Nitroglycerin (Nitrostat Sl) 0.4 mg UNSCH PRN SL CHEST PAIN; Start 08/07/17 at 17:45 Clonidine (Catapres) 0.1 mg UNSCH PRN PO for BP > 180/100 X 2 readings; Start 08/07/17 at 17:45 Gelatin (Gelfoam 12 Mm/7 Mm Top) 1 foam UNSCH PRN TOP SEE LABEL COMMENTS; Start 08/07/17 at 17:45 Acetaminophen (Tylenol) 650 mg Q4H PRN PO PAIN 1-10 Last administered on 06:18; Start 08/08/17 at 14:00 Bisacodyl (Dulcolax Ec) 10 mg DAILY PRN PO constipation Last administered on 08:44; Start 08/09/17 at 08:00 Midodrine (Proamatine) 5 mg TID@07,12,17 PO Last administered on 08/11/17 05: 55; Start 08/09/17 at 17:00 Epoetin Hayden (Epogen Inj) 10,000 units UNSCH PRN IV PUSH WITH DIALYSIS; Start 08/09/17 at 18:00 Heparin Sodium (Porcine) (Heparin Inj) 5,000 units Q8H SQ ; Start 08/10/17 at 06:00; Stop 08/10/17 at 06:00; Status DC Heparin Sodium (Porcine) (Heparin Inj) 5,000 units Q8H SQ Last administered on 08/11/17 05:55; Start 08/10/17 at 06:00 A/P Assessment and Plan This is a 67-year-old male past medical history of end-stage renal disease on dialysis, type 2 diabetes, hypertension, anemia secondary to chronic kidney disease, and coronary disease who was initially admitted for failed left AV fistula [facility] consulted due to hypotension and dizziness Left upper extremity failing access/Access related hand ischemia -Status post Left upper extremity access revision and Left upper extremity distal revascularization, interval ligation. -Management per vascular surgeon. Lightheadedness improving with improvement in blood pressure -Dizziness sounds more like a lightheadedness. most likely secondary to hypotension. Since patient had a procedure he had multiple hypotensive readings. May be due to decreased oral intake. -Based on interview and labs very unlikely this is infectious. Orthostatics negative. -Continue with Midodrine. Hypotension, improving -See treatment as above. -Bumex was discontinued. -Continue with midodrine ESRD -Patient receives HD MWF -Continue management per raw hide trimmer. Steal Syndrome/DM/HTN/Anemia of Renal Disease/CHF/CAD/status post pacemaker placement -Continue her current regimen. -Patient pacemaker was interrogated. DVT prophylaxis -SCDs Discharge Planning Patient is medically clear for discharge. Case management is working on discharge and pending authorization from [facility] for SNF. Kavitha Benítez MD Aug 11, 2017 11:04
--- NOTE | 2017-08-11 12:16 | PD.VS.PN ---
Subjective POD #: 4 Procedure(s): L UE access revision and DRIL Subjective/Hospital Course L UE doing well R leg not causing him pain notes abdominal distension and tells me he gets paracentesis on occasion as outpatient Objective Vitals/I&O Date Time Temp Pulse Resp B/P (MAP) Pulse Ox O2 Delivery O2 Flow Rate FiO2 08/11/17 12:00 59 08/11/17 11:00 60 08/11/17 11:00 93 Nasal Cannula 2.00 08/11/17 11:00 97.8 61 17 96/55 (69) 93 08/11/17 10:00 59 08/11/17 09:00 60 08/11/17 08:00 60 08/11/17 07:00 97.5 60 17 95/51 (66) 95 08/11/17 07:00 95 Nasal Cannula 2.00 08/11/17 07:00 60 08/11/17 06:13 60 08/11/17 05:04 59 08/11/17 04:04 61 08/11/17 03:27 96 Nasal Cannula 2.00 08/11/17 03:24 97.9 60 16 94/52 (66) 96 08/11/17 03:21 60 08/11/17 02:03 59 08/11/17 01:01 59 08/11/17 00:09 59 08/10/17 23:00 60 08/10/17 23:00 96 Nasal Cannula 2.00 08/10/17 23:00 98.3 60 16 98/51 (67) 100 08/10/17 22:00 60 08/10/17 21:00 63 08/10/17 20:00 62 08/10/17 19:00 100 Nasal Cannula 2.00 08/10/17 19:00 97.9 60 16 106/51 (69) 100 08/10/17 19:00 62 08/10/17 18:08 63 08/10/17 17:02 63 08/10/17 16:09 65 08/10/17 15:40 64 08/10/17 15:40 97.8 64 18 116/56 (76) 97 08/10/17 15:40 97 Nasal Cannula 2.00 08/10/17 14:01 63 08/10/17 13:19 61 10/27/17 12:15 97.8 61 18 113/53 (73) 98 08/10/17 12:15 98 Room Air 08/11/17 08/11/17 08/11/17 07:00 15:00 23:00 Intake Total 120 ml Output Total 0 ml Balance 120 ml Exam: L UE incision ok + thrill R thigh incision ok Assessment and Plan Assessment: (1) ESRD (end stage renal disease) on dialysis (2) AVF (arteriovenous fistula) Plan Stable from surgical standpoint POD#4 1. Awaiting rehab 2. Defer to medical service for paracentesis needs Discharge Planning anytime Issa Jansen MD Aug 11, 2017 12:16
[2017-08-11] MEDS: ACETAMINOPHEN 325 MG TAB PO PRN (12:29)
== END 2017-08-11 16:38 | DRG 263 ==
LOC: HSDI 06:26 → HCPC 13:20
PROVIDERS: ADMIT Surgery; ATTEND Surgery
PROC: 031809D Bypass Left Brachial Artery to Upper Arm Vein with Autologous Venous Tissue, Open Approach (ICD-10-PCS; 2017-08-07)
PROC: 5A1D70Z Performance of Urinary Filtration, Intermittent, Less than 6 Hours Per Day (ICD-10-PCS; 2017-08-07)
PROC: 06BQ0ZZ Excision of Left Saphenous Vein, Open Approach (ICD-10-PCS; principal; 2017-08-07 08:30)
DX: T82.898A Other specified complication of vascular prosthetic devices, implants and grafts, initial encounter (principal); I13.2 Hypertensive heart and chronic kidney disease with heart failure and with stage 5 chronic kidney disease, or end stage renal disease; N18.6 End stage renal disease; I42.9 Cardiomyopathy, unspecified; R18.8 Other ascites; E11.22 Type 2 diabetes mellitus with diabetic chronic kidney disease; E87.5 Hyperkalemia; I48.0 Paroxysmal atrial fibrillation; Y83.8 Other surgical procedures as the cause of abnormal reaction of the patient, or of later complication, without mention of misadventure at the time of the procedure; I25.10 Atherosclerotic heart disease of native coronary artery without angina pectoris; I50.9 Heart failure, unspecified; D63.1 Anemia in chronic kidney disease; I25.5 Ischemic cardiomyopathy; I95.1 Orthostatic hypotension; Z95.0 Presence of cardiac pacemaker; I25.2 Old myocardial infarction; Z87.891 Personal history of nicotine dependence; Z95.810 Presence of automatic (implantable) cardiac defibrillator; Z95.1 Presence of aortocoronary bypass graft; Z99.2 Dependence on renal dialysis
CPT/HCPCS: 80048; 80069; 82948; 84132; 85027; 86850; 86900; 86901; 90935; 96374; 96375; J1580; J1644; J1815; J2150; J2405; J2720; J3370; J7030; J7120; P9047

== ENCOUNTER 2017-11-12 16:35 | Inpatient (IN) | payer OTHER, MEDICARE ==
[~2017-11-12] VITALS: Ht 170.2 cm; Wt 84.2 kg
[~2017-11-12 16:35] MED LIST changes: -CARV12.5 PO
[2017-11-12] MEDS ORDERED: IOHEXOL 350 MG/ML 100 ML BTL (for Cath Lab) OTHER ONE (19:16)
[2017-11-12 20:00] VITALS: BP 118/64; PULSE 75; RESP 22; TEMP 97.7; O2SAT 95
[2017-11-12] MEDS ORDERED: NALOXONE HCL 0.4 MG/ML AMP IV PUSH PRN (20:00)
[2017-11-12] MEDS ORDERED: BISACODYL 10 MG SUPP RECTAL PRN (20:00)
[2017-11-12] MEDS ORDERED: MAGNESIUM HYDROXIDE SUSP 30 ML CUP PO PRN (20:00)
[2017-11-12] MEDS ORDERED: SODIUM CHLORIDE 0.9% FLUSH 10 ML FLUSH IV FLUSH PRN (20:00)
[2017-11-12] MEDS ORDERED: ONDANSETRON HCL 4 MG/2 ML VIAL IVP PRN (20:00)
[2017-11-12] MEDS ORDERED: SENNOSIDES 8.6 MG TAB PO PRN (20:00)
[2017-11-12] MEDS ORDERED: LACTULOSE SYRUP 20 GM/30 ML CUP PO PRN (20:00)
[2017-11-12 21:00] VITALS: PULSE 68
[2017-11-12] MEDS: SODIUM CHLORIDE 0.9% FLUSH 10 ML FLUSH IV FLUSH SCH (21:00)
--- NOTE | 2017-11-12 22:42 | HHI.HP ---
HPI Service [facility] Primary Care Physician Meir Oliver, DO Admission Diagnosis Diagnoses: Chief Complaint: fistula occlusion Travel History International Travel<30 Days: No Contact w/Intl Traveler <30 Da: No History of Present Illness 67-year-old male with a history of end-stage renal disease on hemodialysis Sunday, diabetes, CAD, CHF, hypertension was transferred from [facility] to be evaluated by vascular surgery. Patient states he was admitted to [facility] because he had low blood pressure readings at home. While at [facility] patient was found to have included left AV fistula at the proximal anastomosis, patient was found to have a thrombosis of his DRIL with an ischemic middle finger Dr. Jansen was notified of the situation with the patient was septic and patient was transferred here for evaluation. Upon examination patient found to have a necrotic left middle finger that patient states has been going on for the last 12 weeks. Patient was being treated with cefepime IV. Last Dialysis was Sunday, patient states 1.5L removed. Binding Dyer: Dr. Pereyra Review of Systems Except as stated in HPI: all other systems reviewed are Neg Past Family Social History Past Medical History ESRD DM CAD HF. HTN Past Surgical History Pacemaker CABGx4 with mitral valvuloplasty in february 2005 Right fifth toe amputation Right shoulder rotator cuff repair Reported Medications Reported Meds & Active Scripts Active Reported Carvedilol 3.125 Mg Tab 3.125 Mg PO BID Coq-10 Tr (Coenzyme Q10 (Ubidecarenone)) 100 Mg Cap 200 Mg PO DAILY Novolin 70-30 Inj (Insulin Human Isoph/Insulin Regular) 1,000 Unit/10 Ml Vial 12 Units SQ BIDAC Cummings Thyroid (Thyroid) 60 Mg Tab 60 Mg PO BID Pantoprazole (Pantoprazole Sodium) 20 Mg Tab 20 Mg PO DAILY Bumetanide 2 Mg Tab 2 Mg PO DAILY Gabapentin 100 Mg Cap 100 Mg PO TID Allergies: Coded Allergies: egg (Unverified Allergy, Mild, 08/07/17) adhesive (Unverified Adverse Reaction, Severe, SKIN BREAKDOWN/ULCERS, ) Uncoded Allergies: MSG (Allergy, Intermediate, bowel problems, 08/02/17) Active Ordered Medications Current Medications Medications (Trade) Dose Ordered Sig/Renny Route Start Time Stop Time Status Last Admin (NS Flush) 2 ml UNSCH PRN IV FLUSH 11/12/17 20:00 (NS Flush) 2 ml BID IV FLUSH 11/12/17 21:00 11/12/17 21:00 (Tylenol) 650 mg Q4H PRN PO 11/12/17 20:00 (Zofran Inj) 4 mg Q6H PRN IVP 11/12/17 20:00 (Narcan Inj) 0.4 mg UNSCH PRN IV PUSH 11/12/17 20:00 (Milk Of Magnesia Liq) 30 ml Q12H PRN PO 11/12/17 20:00 (Senokot) 17.2 mg Q12H PRN PO 11/12/17 20:00 (Dulcolax Supp) 10 mg DAILY PRN RECTAL 11/12/17 20:00 (Lactulose Liq) 30 ml DAILY PRN PO 11/12/17 20:00 (Morphine Inj) 2 mg Q3H PRN IV PUSH 11/12/17 23:30 (Morphine Inj) 4 mg Q3H PRN IV PUSH 11/12/17 23:30 (Heparin Inj) 5,000 units Q8HR SQ 11/13/17 06:00 (Synthroid) 125 mcg DAILY@0600 PO 11/13/17 06:00 (D50w (Vial) Inj) 50 ml UNSCH PRN IV PUSH 11/12/17 23:30 (Glucagon Inj) 1 mg UNSCH PRN OTHER 11/12/17 23:30 (NovoLOG SUPPLEMENTAL SCALE) 1 ACHS SLIDING SCALE SQ 11/13/17 08:00 (Phoslo) 667 mg TID PO 11/13/17 09:00 (Coreg) 3.125 mg DAILY PO 11/13/17 09:00 (Ecotrin Ec) 162 mg DAILY PO 11/13/17 09:00 (Plavix) 75 mg DAILY PO 11/13/17 09:00 Family History Family history significant for DM Social History Patient denies any tobacco, alcohol or illicit drug use. Physical Exam Physical Exam GENERAL: This is a well-nourished, well-developed patient, resting in bed. SKIN: Left middle finger necrotic tip. HEAD: Atraumatic. Normocephalic. EYES: Pupils equal round and reactive. ENT: Nose without bleeding, purulent drainage or septal hematoma. Airway patent. NECK: Trachea midline. No JVD or lymphadenopathy. CARDIOVASCULAR: Regular rate and rhythm without murmurs, gallops, or rubs. Left AV fistula, no bruit or thrill noted RESPIRATORY: Diminished bases. No wheezes, rales, or rhonchi. GASTROINTESTINAL: Abdomen soft, non-tender, nondistended. BS 4. MUSCULOSKELETAL: Pitting +2 edema in bilateral extremities. Third spacing in bilateral uppers. No calf tenderness. NEUROLOGICAL: Awake and alert. Motor and sensory grossly within normal limits. Normal speech. Caprini VTE Risk Assessment Caprini VTE Risk Assessment: Mod/High Risk (score >= 2) Caprini Risk Assessment Model Point Value = 1 Point Value = 2 Point Value = 3 Point Value = 5 Age 41-60 Minor surgery BMI > 25 kg/m2 Swollen legs Varicose veins or History of unexplained or recurrent spontaneous Oral contraceptives or hormone replacement Sepsis (< 1 month) Serious lung disease, including pneumonia (< 1 month) Abnormal pulmonary function Acute myocardial infarction Congestive heart failure (< 1 month) History of inflammatory bowel disease Medical patient at bed rest Age 61-74 Arthroscopic surgery Major open surgery (> 45 min) Laparoscopic surgery (> 45 min) Malignancy Confined to bed (> 72 hours) Immobilizing plaster cast Central venous access Age >= 75 History of VTE Family history of VTE Factor V Leiden Prothrombin [id number] Lupus anticoagulant Anticardiolipin antibodies Elevated serum homocysteine Heparin-induced thrombocytopenia Other congenital or acquired thrombophilia Stroke (< 1 month) Elective arthroplasty Hip, pelvis, or leg fracture Acute spinal cord injury (< 1 month) Prophylaxis Regimen Total Risk Factor Score Risk Level Prophylaxis Regimen 0-1 Low Early ambulation 2 Moderate Order ONE of the following: *Sequential Compression Device (SCD) *Heparin 5000 units SQ BID 3-4 Higher Order ONE of the following medications: *Heparin 5000 units SQ TID *Enoxaparin/Lovenox 40 mg SQ daily (WT < 150 kg, CrCl > 30 mL/min) *Enoxaparin/Lovenox 30 mg SQ daily (WT < 150 kg, CrCl > 10-29 mL/min) *Enoxaparin/Lovenox 30 mg SQ BID (WT < 150 kg, CrCl > 30 mL/min) AND/OR *Sequential Compression Device (SCD) 5 or more Highest Order ONE of the following medications: *Heparin 5000 units SQ TID (Preferred with Epidurals) *Enoxaparin/Lovenox 40 mg SQ daily (WT < 150 kg, CrCl > 30 mL/min) *Enoxaparin/Lovenox 30 mg SQ daily (WT < 150 kg, CrCl > 10-29 mL/min) *Enoxaparin/Lovenox 30 mg SQ BID (WT < 150 kg, CrCl > 30 mL/min) AND *Sequential Compression Device (SCD) Assessment and Plan Problem List: (1) AV fistula occlusion ICD Code: T82.898A - Other specified complication of vascular prosthetic devices, implants and grafts, initial encounter (2) ESRD (end stage renal disease) on dialysis ICD Code: N18.6 - End stage renal disease; Z99.2 - Dependence on renal dialysis (3) Diabetes mellitus ICD Code: E11.9 - Type 2 diabetes mellitus without complications Assessment and Plan 67-year-old male with a history of end-stage renal disease on hemodialysis Sunday, diabetes, CAD, CHF, hypertension was transferred from [facility] to be evaluated by vascular surgery. AV Fistula occlusion Records from [facility] reviewed and shows occlusion to left av fistula -Consult vascular, patient known to Dr. Jansen -Cont ASA and Plavix -Pain management with Morphine IV LH gangrene, left middle finger necrotic -Consult ID for recommendations -Consult Hand surgery for recommendations Diabetes, chronic -Accu checks with SSI ESRD on Dialysis, MWF -Consult nephrology for recommendations, patient known to Dr. Pereyra -Resume home calcium acetate 667mg TID Hypertension, chronic -Cont coreg 3.125mg Daily, monitor vitals Hypothyroid, chronic: resume home medications DVT prophylaxis: Heparin SQ Discussed Condition With Patient, and RN Elyssa Love Nov 12, 2017 22:42
[2017-11-12] MEDS ORDERED: MORPHINE SULFATE 4 MG/ML INJ IV PUSH PRN (23:30)
[2017-11-12] MEDS ORDERED: GLUCAGON 1 MG/ML VIAL OTHER PRN (23:30)
[2017-11-12] MEDS ORDERED: DEXTROSE 50% IN WATER 50 ML VIAL(D50) IV PUSH PRN (23:30)
[2017-11-12] MEDS ORDERED: MORPHINE SULFATE 2 MG/ML INJ IV PUSH PRN (23:30)
[2017-11-13] VITALS (9 sets, daily range): BP systolic 96–116; BP diastolic 52–68; PULSE 61–85; RESP 18–20; TEMP 97.3–98.4; O2SAT 98–100
[2017-11-13 00:40] LABS: BASOPHIL # 0.1 TH/MM3 (0-0.2); BASOPHIL % 1.1 % (0.0-2.0); EOSINOPHIL # 0.1 TH/MM3 (0-0.4); EOSINOPHIL % 1.4 % (0.0-4.0); HEMATOCRIT 27.4 % (39.0-51.0); HEMOGLOBIN 9.3 GM/DL (13.0-17.0); LYMPH % 7.3 % (9.0-44.0); LYMPHOCYTE # 0.7 TH/MM3 (1.0-4.8); MEAN CELL VOLUME 91.3 FL (80.0-100.0); MEAN CORPUSCULAR HGB CONC 33.9 % (32.0-36.0); MEAN PLATELET VOLUME 9.6 FL (7.0-11.0); MONOCYTE # 1.4 TH/MM3 (0-0.9); NEUT % 75.2 % (16.0-70.0); PLATELET COUNT 117 TH/MM3 (150-450); RED CELL DISTRIBUTION WIDTH 17.2 % (11.6-17.2); WHITE BLOOD COUNT 9.2 TH/MM3 (4.0-11.0)
[2017-11-13] MEDS ORDERED: CARV3.12 PO (00:48)
[2017-11-13 00:57] LABS: BICARBONATE 24.5 MEQ/L (21.0-32.0); CALCIUM 7.2 MG/DL (8.5-10.1); CALCIUM-PROTEIN CORRECTED 8.3 MG/DL (8.5-10.1); CREATININE 6.64 MG/DL (0.60-1.30); TOTAL BILIRUBIN ADULT 0.4 MG/DL (0.2-1.0); TOTAL PROTEIN 5.1 GM/DL (6.4-8.2)
[2017-11-13] MEDS: HEPARIN SODIUM - SQ 10,000 UNITS/ML VIAL SQ SCH ×3 (06:12→21:23)
[2017-11-13] MEDS: LEVOTHYROXINE SODIUM 125 MCG TAB PO SCH (06:13)
[2017-11-13] MEDS: INSULIN ASPART SUPPLEMENTAL SCALE SQ SCH ×4 (08:00→21:23)
[2017-11-13 08:19] LABS: ALT (GPT) 19 U/L (12-78); AUTOMATED NEUTROPHIL # 8.3 TH/MM3 (1.8-7.7); BASOPHIL # 0.1 TH/MM3 (0-0.2); BASOPHIL % 0.9 % (0.0-2.0); EOSINOPHIL # 0.1 TH/MM3 (0-0.4); HEMATOCRIT 30.6 % (39.0-51.0); HEMOGLOBIN 10.1 GM/DL (13.0-17.0); LYMPH % 6.4 % (9.0-44.0); LYMPHOCYTE # 0.7 TH/MM3 (1.0-4.8); MEAN CELL VOLUME 92.8 FL (80.0-100.0); MEAN CORPUSCULAR HEMOGLOBIN 30.5 PG (27.0-34.0); MEAN CORPUSCULAR HGB CONC 32.8 % (32.0-36.0); MEAN PLATELET VOLUME 10.2 FL (7.0-11.0); MONO % 15.6 % (0.0-8.0); MONOCYTE # 1.7 TH/MM3 (0-0.9); NEUT % 76.1 % (16.0-70.0); PLATELET COUNT 136 TH/MM3 (150-450); RED CELL DISTRIBUTION WIDTH 17.7 % (11.6-17.2); WHITE BLOOD COUNT 10.9 TH/MM3 (4.0-11.0)
[2017-11-13 08:21] LABS: ALKALINE PHOSPHATASE 490 U/L (45-117); TOTAL BILIRUBIN ADULT 0.5 MG/DL (0.2-1.0); TOTAL PROTEIN 5.5 GM/DL (6.4-8.2)
[2017-11-13 08:26] LABS: ALBUMIN 2.1 GM/DL (3.4-5.0); AST (GOT) 22 U/L (15-37); BICARBONATE 20.7 MEQ/L (21.0-32.0); BLOOD UREA NITROGEN 54 MG/DL (7-18); CALCIUM 7.8 MG/DL (8.5-10.1); CHLORIDE 103 MEQ/L (98-107); CREATININE 6.75 MG/DL (0.60-1.30); GLOMERULAR FILTRATION RATE 8 ML/MIN (>89); GLUCOSE,RANDOM 120 MG/DL (74-106); SODIUM (NA) 134 MEQ/L (136-145)
[2017-11-13] MEDS: CLOPIDOGREL 75 MG TAB PO SCH (09:00)
[2017-11-13] MEDS: SODIUM CHLORIDE 0.9% FLUSH 10 ML FLUSH IV FLUSH SCH ×2 (09:00→20:22)
[2017-11-13] MEDS: CARVEDILOL 3.125 MG TAB PO SCH (09:00)
[2017-11-13] MEDS: CALCIUM ACETATE 667 MG CAP PO SCH ×3 (09:00→18:00)
[2017-11-13] MEDS: ASPIRIN EC 81 MG TABEC PO SCH (09:00)
--- NOTE | 2017-11-13 09:01 | RADRPT ---
EXAM DATE/TIME: 11/13/2017 07:52 [facility] COMPARISON: No previous studies available for comparison. INDICATIONS : Pre vascular surgery. MEDICAL HISTORY : Hypothyroidism. Myocardial infarction. Congestive heart failure. Hypertension. Sleep apnea. Renal dis ease. Arthritis. SURGICAL HISTORY : Pacemaker. Bilateral GSV harvesting. ENCOUNTER: Initial ACUITY: 1 day PAIN SCORE: /10 LOCATION: Bilateral legs. TECHNIQUE: Venous ultrasound of the left and right leg was performed from the inguinal ligament to the proximal calf. Real-time, color Doppler and spectral tracing, compression and augmentation techniques were us ed. FINDINGS: RIGHT LEG: There is normal compressibility of the deep venous system from the inguinal region to the proximal ca lf. No echogenic clot is seen in the lumen of the common femoral, femoral, popliteal, and posterior tibial veins. There is a normal response of the venous system to proximal and distal augmentation an d respiration. There was a bandage in the right groin limiting evaluation. LEFT LEG: There is normal compressibility of the deep venous system from the inguinal region to the proximal ca lf. No echogenic clot is seen in the lumen of the common femoral, femoral, popliteal, and posterior tibial veins. There is a normal response of the venous system to proximal and distal augmentation an d respiration. CONCLUSION: No DVT seen in either leg. Jewel Kaiser MD on November 13, 2017 at 8:58 Board Certified Radiologist. This report was verified electronically.
--- NOTE | 2017-11-13 09:28 | RADRPT ---
EXAM DATE/TIME: 11/13/2017 07:59 [facility] COMPARISON: No previous studies available for comparison. INDICATIONS : Pre vascular surgey. MEDICAL HISTORY : Hypothyroidism. Myocardial infarction. Congestive heart failure. Hypertension. Arthritis. Sleep apnea . Renal disease. SURGICAL HISTORY : Pacemaker. Bilateral GSV harvesting. ENCOUNTER: Initial ACUITY: 1 day PAIN SCORE: 2/10 LOCATION: Bilateral legs. GREATER SAPHENOUS VEIN THIGH: PROXIMAL: Right Non-visualized Left 3 mm MID: Right Non-visualized Left 3 mm DISTAL: Right Non-visualized Left Non-visualized CALF: PROXIMAL: Right 2 mm Left Non-visualized MID: Right 3 mm Left Non-visualized DISTAL: Right 2 mm Left Non-visualized FINDINGS: The venous system of the lower extremities are patent by color Doppler imaging. Measurements of the leg veins (in mm) are listed above. CONCLUSION: 1. Lower extremity venous mapping, as above. Brian Boateng MD on November 13, 2017 at 9:25 Board Certified Radiologist. This report was verified electronically.
--- NOTE | 2017-11-13 09:41 | PD.CONS ---
History of Present Illness Service Hand surgery Consult Requested By Hospitalist Reason for Consult Left middle fingertip dry gangrene Primary Care Physician Meir Oliver DO Diagnoses: History of Present Illness 67-year-old male with a history of end-stage renal disease on hemodialysis Sunday, diabetes, CAD, CHF, hypertension was transferred from [facility] to be evaluated by vascular surgery. Patient states he was admitted to [facility] because he had low blood pressure readings at home. While at [facility] patient was found to have included left AV fistula at the proximal anastomosis, patient was found to have a thrombosis of his DRIL with an ischemic middle finger Dr. Jansen was notified of the situation with the patient was septic and patient was transferred here for evaluation. Upon examination patient found to have a necrotic left middle finger that patient states has been going on for the last 12 weeks. Patient also with multiple nonhealing wounds of the right dorsal hand. Patient reports this was subsequent to a fall. [place] Uppers: Dr. Pereyra Review of Systems Except as stated in HPI: all other systems reviewed are Neg Past Family Social History Past Medical History ESRD DM CAD HF. HTN Past Surgical History Pacemaker CABGx4 with mitral valvuloplasty in february 2005 Right fifth toe amputation Right shoulder rotator cuff repair Reported Medications Reported Meds & Active Scripts Active Reported Carvedilol 3.125 Mg Tab 3.125 Mg PO BID Coq-10 Tr (Coenzyme Q10 (Ubidecarenone)) 100 Mg Cap 200 Mg PO DAILY Novolin 70-30 Inj (Insulin Human Isoph/Insulin Regular) 1,000 Unit/10 Ml Vial 12 Units SQ BIDAC [place] Thyroid (Thyroid) 60 Mg Tab 60 Mg PO BID Pantoprazole (Pantoprazole Sodium) 20 Mg Tab 20 Mg PO DAILY Bumetanide 2 Mg Tab 2 Mg PO DAILY Gabapentin 100 Mg Cap 100 Mg PO TID Allergies: Coded Allergies: egg (Unverified Allergy, Mild, 08/07/17) adhesive (Unverified Adverse Reaction, Severe, SKIN BREAKDOWN/ULCERS, ) Uncoded Allergies: MSG (Allergy, Intermediate, bowel problems, 08/02/17) Active Ordered Medications Current Medications Medications (Trade) Dose Ordered Sig/Renny Route Start Time Stop Time Status Last Admin (NS Flush) 2 ml UNSCH PRN IV FLUSH 11/12/17 20:00 (NS Flush) 2 ml BID IV FLUSH 11/12/17 21:00 11/12/17 21:00 (Tylenol) 650 mg Q4H PRN PO 11/12/17 20:00 (Zofran Inj) 4 mg Q6H PRN IVP 11/12/17 20:00 (Narcan Inj) 0.4 mg UNSCH PRN IV PUSH 11/12/17 20:00 (Milk Of Magnesia Liq) 30 ml Q12H PRN PO 11/12/17 20:00 (Senokot) 17.2 mg Q12H PRN PO 11/12/17 20:00 (Dulcolax Supp) 10 mg DAILY PRN RECTAL 11/12/17 20:00 (Lactulose Liq) 30 ml DAILY PRN PO 11/12/17 20:00 (Morphine Inj) 2 mg Q3H PRN IV PUSH 11/12/17 23:30 (Morphine Inj) 4 mg Q3H PRN IV PUSH 11/12/17 23:30 (Heparin Inj) 5,000 units Q8HR SQ 11/13/17 06:00 (Synthroid) 125 mcg DAILY@0600 PO 11/13/17 06:00 (D50w (Vial) Inj) 50 ml UNSCH PRN IV PUSH 11/12/17 23:30 (Glucagon Inj) 1 mg UNSCH PRN OTHER 11/12/17 23:30 (NovoLOG SUPPLEMENTAL SCALE) 1 ACHS SLIDING SCALE SQ 11/13/17 08:00 (Phoslo) 667 mg TID PO 11/13/17 09:00 (Coreg) 3.125 mg DAILY PO 11/13/17 09:00 (Ecotrin Ec) 162 mg DAILY PO 11/13/17 09:00 (Plavix) 75 mg DAILY PO 11/13/17 09:00 Family History Family history significant for DM Social History Patient denies any tobacco, alcohol or illicit drug use. Past Family Social History Allergies: Coded Allergies: egg (Unverified Allergy, Mild, 08/07/17) adhesive (Unverified Adverse Reaction, Severe, SKIN BREAKDOWN/ULCERS, ) Uncoded Allergies: MSG (Allergy, Intermediate, bowel problems, 08/02/17) Physical Exam Vital Signs Vital Signs Date Time Temp Pulse Resp B/P (MAP) Pulse Ox O2 Delivery O2 Flow Rate FiO2 11/13/17 08:39 93 Nasal Cannula 2.00 11/13/17 04:00 97.3 67 20 105/57 (73) 100 11/13/17 00:00 68 11/13/17 00:00 97.9 62 19 99/52 (68) 100 11/13/17 00:00 Nasal Cannula 2.00 11/12/17 21:00 68 11/12/17 20:00 97.7 75 22 118/64 (82) 95 Physical Exam No acute distress Alert and oriented 3 Moist mucous membranes PERRLA skin with mild ecchymoses to the left posterior arm no focal neurologic deficits respirations nonlabored Do not appreciate splinter hemorrhages in either hand Left upper extremity Left medial upper arm with well-healed incision consistent with prior fistula, no bruit appreciated Radial pulse difficult to appreciate Left digit tips cool but cap refill less than 2 seconds Patient able to open left hand fully, though flexion limited in index and middle finger, patient able to get middle index fingertip within 2 cm of palm Left middle fingertip with roughly 2 cm area of dry gangrene stopping distal to the DIP No adjacent erythema Nontender to firm palpation Sensation intact to light touch just proximal to the area of necrosis Right upper extremity Patient with multiple nonhealing wounds over the dorsal MPs and PIPs Sensation intact to light touch right upper extremity Full range of motion composite fist to extension right hand Laboratory Laboratory Tests Test 11/13/17 00:10 11/13/17 06:50 White Blood Count 9.2 10.9 Red Blood Count 3.00 3.30 Hemoglobin 9.3 10.1 Hematocrit 27.4 30.6 Mean Corpuscular Volume 91.3 92.8 Mean Corpuscular Hemoglobin 31.0 30.5 Mean Corpuscular Hemoglobin Concent 33.9 32.8 Red Cell Distribution Width 17.2 17.7 Platelet Count 117 136 Mean Platelet Volume 9.6 10.2 Neutrophils (%) (Auto) 75.2 76.1 Lymphocytes (%) (Auto) 7.3 6.4 Monocytes (%) (Auto) 15.0 15.6 Eosinophils (%) (Auto) 1.4 1.0 Basophils (%) (Auto) 1.1 0.9 Neutrophils # (Auto) 7.0 8.3 Lymphocytes # (Auto) 0.7 0.7 Monocytes # (Auto) 1.4 1.7 Eosinophils # (Auto) 0.1 0.1 Basophils # (Auto) 0.1 0.1 CBC Comment DIFF FINAL AUTO DIFF Differential Comment Hematology Comments Blood Urea Nitrogen 53 54 Creatinine 6.64 6.75 Random Glucose 152 120 Total Protein 5.1 5.5 Albumin 2.0 2.1 Calcium Level 7.2 7.8 Alkaline Phosphatase 466 490 Aspartate Amino Transf (AST/SGOT) 18 22 Alanine Aminotransferase (ALT/SGPT) 20 19 Total Bilirubin 0.4 0.5 Sodium Level 138 134 Potassium Level 4.7 4.6 Chloride Level 103 103 Carbon Dioxide Level 24.5 20.7 Anion Gap 11 10 Estimat Glomerular Filtration Rate 8 8 Protein Corrected Calcium 8.3 Result Diagram: 11/13/1750 11/13/1750 Assessment and Plan Problem List: (1) Gangrene of finger of left hand ICD Codes: I96 - Gangrene, not elsewhere classified Assessment and Plan 67-year-old male with signs and symptoms consistent with thrombosed left upper extremity fistula, with subsequent left middle fingertip dry gangrene, 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 We will await final plan pending vascular surgery recommendations Because the patient reports the right hand wounds are due to fall, they are most likely nonhealing due to low ejection fraction, though it is possible that they are embolic in etiology Discussed with patient that his gangrene on the left is most likely due to steal , however it is possible with his ejection fraction that he has Mural thrombi causing emboli Transthoracic echo to evaluate ejection fraction as well as rule out Mural thrombi as source of emboli EKG Occupational therapy consult for left hand stiffness and decreased range of motion Bacitracin ointment and Xeroform to right hand wounds twice a day by nursing right We'll plan for amputation of dry gangrene before patient is discharged once vascular surgery plan is determined Narendra Ko MD Nov 13, 2017 09:41
--- NOTE | 2017-11-13 09:56 | PD.CONS ---
HPI Service Nephrology Consult Requested By Attending Reason for Consult ESRD dialysis MWF Primary Care Physician Meir Oliver, DO History of Present Illness Patient is a 67-year-old male with a history of end-stage renal disease on hemodialysis Sunday/Sunday/ Sunday, diabetes, CAD, CHF, hypertension was transferred from [facility] to be evaluated by vascular surgery. Patient states he was admitted to [facility] because he had low blood pressure readings at home. AV fistula has not been functioning or used for 6- 8 weeks and they have been using a permacath for dialysis. Permacath has been removed secondary to possible infection and vas cath has been placed. He has been treated with cefepime IV. Last dialysis was Sunday and 1.5 L removed. Patient has a necrotic left middle finger that patient states has been going on for the last 12 weeks. Dressing on abdomen from last paracentesis. (Kathleen Olguin) Review of Systems Constitutional: COMPLAINS OF: Fatigue Cardiovascular: COMPLAINS OF: Dyspnea on Exertion, Lower Extremity Edema, DENIES: Chest pain Gastrointestinal: DENIES: Diarrhea, Nausea, Vomiting (Kathleen Olguin) Past Family Social History Allergies: Coded Allergies: egg (Unverified Allergy, Mild, 08/07/17) adhesive (Unverified Adverse Reaction, Severe, SKIN BREAKDOWN/ULCERS, ) Uncoded Allergies: MSG (Allergy, Intermediate, bowel problems, 08/02/17) Past Medical History ESRD DM CAD HF. HTN Past Surgical History Pacemaker CABGx4 with mitral valvuloplasty in february 2005 Right fifth toe amputation Right shoulder rotator cuff repair Active Ordered Medications Current Medications Medications (Trade) Dose Ordered Sig/Renny Route Start Time Stop Time Status Last Admin (NS Flush) 2 ml UNSCH PRN IV FLUSH 11/12/17 20:00 (NS Flush) 2 ml BID IV FLUSH 11/12/17 21:00 11/13/17 09:00 (Tylenol) 650 mg Q4H PRN PO 11/12/17 20:00 (Zofran Inj) 4 mg Q6H PRN IVP 11/12/17 20:00 (Narcan Inj) 0.4 mg UNSCH PRN IV PUSH 11/12/17 20:00 (Milk Of Magnesia Liq) 30 ml Q12H PRN PO 11/12/17 20:00 (Senokot) 17.2 mg Q12H PRN PO 11/12/17 20:00 (Dulcolax Supp) 10 mg DAILY PRN RECTAL 11/12/17 20:00 (Lactulose Liq) 30 ml DAILY PRN PO 11/12/17 20:00 (Morphine Inj) 2 mg Q3H PRN IV PUSH 11/12/17 23:30 (Morphine Inj) 4 mg Q3H PRN IV PUSH 11/12/17 23:30 (Heparin Inj) 5,000 units Q8HR SQ 11/13/17 06:00 11/13/17 06:12 (Synthroid) 125 mcg DAILY@0600 PO 11/13/17 06:00 11/13/17 06:13 (D50w (Vial) Inj) 50 ml UNSCH PRN IV PUSH 11/12/17 23:30 (Glucagon Inj) 1 mg UNSCH PRN OTHER 11/12/17 23:30 (NovoLOG SUPPLEMENTAL SCALE) 1 ACHS SLIDING SCALE SQ 11/13/17 08:00 (Phoslo) 667 mg TID PO 11/13/17 09:00 (Coreg) 3.125 mg DAILY PO 11/13/17 09:00 (Ecotrin Ec) 162 mg DAILY PO 11/13/17 09:00 (Plavix) 75 mg DAILY PO 11/13/17 09:00 Family History Father COPD Social History Quit smoking 20 years ago rarely ETOH use lives with (Kathleen Olguin DANIEL) Physical Exam Vital Signs Vital Signs Date Time Temp Pulse Resp B/P (MAP) Pulse Ox O2 Delivery O2 Flow Rate FiO2 11/13/17 08:39 93 Nasal Cannula 2.00 11/13/17 04:00 97.3 67 20 105/57 (73) 100 11/13/17 00:00 68 11/13/17 00:00 97.9 62 19 99/52 (68) 100 11/13/17 00:00 Nasal Cannula 2.00 11/12/17 21:00 68 11/12/17 20:00 97.7 75 22 118/64 (82) 95 Physical Exam GENERAL: This is a well-nourished, well-developed patient, resting in bed. SKIN: Left middle finger necrotic tip. HEAD: Atraumatic. Normocephalic. EYES: Pupils equal round and reactive. ENT: Nose without bleeding, purulent drainage or septal hematoma. Airway patent. NECK: Trachea midline. No JVD or lymphadenopathy. CARDIOVASCULAR: Regular rate and rhythm without murmurs, gallops, or rubs. Left AV fistula, no bruit or thrill noted RESPIRATORY: Diminished bases. No wheezes, rales, or rhonchi. GASTROINTESTINAL: Abdomen soft, non-tender, nondistended. BS 4. MUSCULOSKELETAL: Pitting +2 edema in bilateral extremities. Third spacing in bilateral uppers. No calf tenderness. NEUROLOGICAL: Awake and alert. Motor and sensory grossly within normal limits. Normal speech. Laboratory Laboratory Tests Test 11/13/17 00:10 11/13/17 06:50 White Blood Count 9.2 10.9 Red Blood Count 3.00 3.30 Hemoglobin 9.3 10.1 Hematocrit 27.4 30.6 Mean Corpuscular Volume 91.3 92.8 Mean Corpuscular Hemoglobin 31.0 30.5 Mean Corpuscular Hemoglobin Concent 33.9 32.8 Red Cell Distribution Width 17.2 17.7 Platelet Count 117 136 Mean Platelet Volume 9.6 10.2 Neutrophils (%) (Auto) 75.2 76.1 Lymphocytes (%) (Auto) 7.3 6.4 Monocytes (%) (Auto) 15.0 15.6 Eosinophils (%) (Auto) 1.4 1.0 Basophils (%) (Auto) 1.1 0.9 Neutrophils # (Auto) 7.0 8.3 Lymphocytes # (Auto) 0.7 0.7 Monocytes # (Auto) 1.4 1.7 Eosinophils # (Auto) 0.1 0.1 Basophils # (Auto) 0.1 0.1 CBC Comment DIFF FINAL AUTO DIFF Differential Comment Hematology Comments Blood Urea Nitrogen 53 54 Creatinine 6.64 6.75 Random Glucose 152 120 Total Protein 5.1 5.5 Albumin 2.0 2.1 Calcium Level 7.2 7.8 Alkaline Phosphatase 466 490 Aspartate Amino Transf (AST/SGOT) 18 22 Alanine Aminotransferase (ALT/SGPT) 20 19 Total Bilirubin 0.4 0.5 Sodium Level 138 134 Potassium Level 4.7 4.6 Chloride Level 103 103 Carbon Dioxide Level 24.5 20.7 Anion Gap 11 10 Estimat Glomerular Filtration Rate 8 8 Protein Corrected Calcium 8.3 (Gellermann,Kathleen M. PUMPER GAUGER APPRENTICE) Result Diagram: 11/13/17 0650 11/13/17 0650 Imaging Last Impressions Lower Extremity Ultrasound 11/13/17 0000 Signed Impressions: Service Date/Time: Monday, November 13, 2017 07:52 - CONCLUSION: No DVT seen in either leg. Jewel Kaiser MD (Kathleen Olguin) Assessment and Plan Problem List: (1) ESRD (end stage renal disease) on dialysis ICD Codes: N18.6 - End stage renal disease; Z99.2 - Dependence on renal dialysis Plan: Dialysis MWF- vas cath Perma cath removed for possible infection: ID consulted Continue phoslo will check level in am Plan for dialysis tomorrow (2) Gangrene of finger of left hand ICD Codes: I96 - Gangrene, not elsewhere classified Plan: necrotic area on left hand middle finger Hand surgery consulted (3) AV fistula occlusion ICD Codes: T82.898A - Other specified complication of vascular prosthetic devices, implants and grafts, initial encounter Plan: Vascular surgery consulted (4) Diabetes mellitus ICD Codes: E11.9 - Type 2 diabetes mellitus without complications Plan: Maintain BS between 140mg/dl to 180 mg/dl (Kathleen Olguin) Problem List: (1) ESRD (end stage renal disease) on dialysis ICD Codes: N18.6 - End stage renal disease; Z99.2 - Dependence on renal dialysis Plan: Dialysis MWF- vas cath Perma cath removed for possible infection: ID consulted Continue phoslo will check level in am Plan for dialysis tomorrow. Patient seen and examined, agree with above. For angiogram on . (2) Gangrene of finger of left hand ICD Codes: I96 - Gangrene, not elsewhere classified Plan: necrotic area on left hand middle finger Hand surgery consulted (3) AV fistula occlusion ICD Codes: T82.898A - Other specified complication of vascular prosthetic devices, implants and grafts, initial encounter Plan: Vascular surgery consulted (4) Diabetes mellitus ICD Codes: E11.9 - Type 2 diabetes mellitus without complications Plan: Maintain BS between 140mg/dl to 180 mg/dl (Kim Santos MD) Kathleen Olguin Nov 13, 2017 09:56 Kim Santos MD Nov 13, 2017 18:07
[2017-11-13 10:18] LABS: ACANTHOCYTES OCC (NORMAL); OVALOCYTES 1+ (NORMAL)
--- NOTE | 2017-11-13 10:38 | RADRPT ---
EXAM DATE/TIME: 11/13/2017 10:18 [place] COMPARISON: No previous studies available for comparison. INDICATIONS : Pre op for amputation of left 3rd distal digit due to necrosis in digit from limited blood flow after placement of fistula in left arm per patient. MEDICAL HISTORY : Hypothyroidism. Myocardial infarction. Congestive heart failure. Hypertension. Arthritis. Sleep apnea . Renal disease. SURGICAL HISTORY : Pacemaker. Bilateral GSV harvesting. ENCOUNTER: Subsequent ACUITY: 1 day PAIN SCORE: 5/10 LOCATION: Left hand FINDINGS: Mean bony structures are osteoporotic and appeared intact. Extensive soft tissue vascular calcificati ons arterial appreciated as well is in the ulna and radial arteries and anterior metacarpal vascular structures and extending into the fingers proximal and mid phalanges. Mild posterior arthritis apprec iated at the DIP joint of third finger. CONCLUSION: Osteoporosis. Extensive arterial calcifications. 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 No def inite evidence of bony destruction or osteomyelitis Jared Upton MD on November 13, 2017 at 10:34 Board Certified Radiologist. This report was verified electronically.
[2017-11-13] MEDS ORDERED: SODIUM CHLOR 0.9% 1000 ML INJ 1,000 ML IV PRN (14:09)
[2017-11-13] MEDS ORDERED: SODIUM CHLOR 0.9% 1000 ML INJ 1,000 ML OTHER PRN (14:09)
[2017-11-13] MEDS ORDERED: MANNITOL 12.5 GM/50 ML VIAL IV PRN (14:15)
[2017-11-13] MEDS ORDERED: HEPARIN SODIUM - IV 10,000 UNITS/10 ML VIAL IV FLUSH PRN (14:15)
[2017-11-13] MEDS ORDERED: GELATIN 12 MM/7 MM FOAM TOP PRN (14:15)
[2017-11-13] MEDS ORDERED: cloNIDine HCL 0.1 MG TAB PO PRN (14:15)
[2017-11-13] MEDS ORDERED: SODIUM CHLORIDE 0.9% FLUSH 10 ML FLUSH IV FLUSH PRN (14:15)
[2017-11-13] MEDS ORDERED: diphenhydrAMINE HCL 25 MG CAP PO PRN (14:15)
[2017-11-13] MEDS ORDERED: NITROGLYCERIN 0.4 MG SL 25 TABS/BTL SL PRN (14:15)
[2017-11-13] MEDS ORDERED: ONDANSETRON HCL 4 MG/2 ML VIAL IV PUSH PRN (14:15)
--- NOTE | 2017-11-13 14:22 | PD.VS.CON ---
History of Present Illness Chief Complaint: B hand ischemia Consult Requested by: Medical service History of Present Illness 67 yo male with B UE digital ischemia, L worse than R. Has ESRD and a L UE AVF that reportedly recently thrombosed. He was at OSH with what is believed to be catheter related sepsis, now recovering. During that hospitalization, also had a OH requiring LHC and stent. With regards to the UE digital tissue loss, he was seen in July in my clinic and underwent L UE Access revision and DRIL, which improved perfusion to LEFT hand. His wounds have never healed and with the recent sepsis, his AVF is believed to be occluded. Now getting HD via R groin catheter, temporary. Past/Family/Social History Past Medical History ESRD CAD DM HTN Access-related hand ischemia Past Surgical History L UE AVF DRIL Social History former smoker Home Medications Reported Medications Carvedilol (Carvedilol) 3.125 Mg Tab, 3.125 MG PO BID, #60 TAB 0 Refills 11/13/17 Coenzyme Q10 (Ubidecarenone) (Coq-10 Tr) 100 Mg Cap, 200 MG PO DAILY 07/31/17 Insulin Human Isophane-Regular 70-30 Inj (Novolin 70-30 Inj) 1,000 Unit/10 Ml Vial, 12 UNITS SQ BIDAC for Blood Sugar Management, ML 0 Refills 07/31/17 Thyroid ([place] Thyroid) 60 Mg Tab, 60 MG PO BID for Thyroid Supplement, #30 TAB 0 Refills 07/31/17 Pantoprazole (Pantoprazole) 20 Mg Tab, 20 MG PO DAILY for Reflux, #30 TAB 0 Refills 07/31/17 Bumetanide (Bumetanide) 2 Mg Tab, 2 MG PO DAILY, TAB 0 Refills 07/31/17 Gabapentin (Gabapentin) 100 Mg Cap, 100 MG PO TID, #90 CAP 0 Refills 07/31/17 Discontinued Reported Medications Carvedilol (Coreg) 3.125 Mg Tab, 3.125 MG PO BID, #60 TAB 0 Refills 11/13/17 Carvedilol (Coreg) 12.5 Mg Tab, 3.125 MG PO BID, #60 TAB 0 Refills 07/31/17 Coded Allergies: egg (Unverified Allergy, Mild, 08/07/17) adhesive (Unverified Adverse Reaction, Severe, SKIN BREAKDOWN/ULCERS, ) Uncoded Allergies: MSG (Allergy, Intermediate, bowel problems, 08/02/17) Review of Systems Constitutional: COMPLAINS OF: Fever, Chills Cardiovascular: DENIES: Chest pain Musculoskeletal: COMPLAINS OF: Muscle aches, Stiffness Physical Exam Vitals/I&O Date Time Temp Pulse Resp B/P (MAP) Pulse Ox O2 Delivery O2 Flow Rate FiO2 11/13/17 12:10 97.3 83 18 114/67 (83) 98 11/13/17 08:39 93 Nasal Cannula 2.00 11/13/17 08:10 98.4 83 18 116/68 (84) 99 11/13/17 08:00 85 11/13/17 04:00 97.3 67 20 105/57 (73) 100 11/13/17 00:00 68 11/13/17 00:00 97.9 62 19 99/52 (68) 100 11/13/17 00:00 Nasal Cannula 2.00 11/12/17 21:00 68 11/12/17 20:00 97.7 75 22 118/64 (82) 95 11/13/17 11/13/17 11/13/17 07:00 15:00 23:00 Intake Total 0 ml Output Total 0 ml Balance 0 ml Neuro: Alert, oriented, [place] HEENT: NC/AT Neck: no JVD Heart: reg rate Lungs: nonlabored breathing Vascular: L UE without thrill No radial pulses in either arm Extremities: B UE digital gangrene Laboratory Tests Test 11/13/17 00:10 11/13/17 06:50 White Blood Count 9.2 10.9 Red Blood Count 3.00 3.30 Hemoglobin 9.3 10.1 Hematocrit 27.4 30.6 Mean Corpuscular Volume 91.3 92.8 Mean Corpuscular Hemoglobin 31.0 30.5 Mean Corpuscular Hemoglobin Concent 33.9 32.8 Red Cell Distribution Width 17.2 17.7 Platelet Count 117 136 Mean Platelet Volume 9.6 10.2 Neutrophils (%) (Auto) 75.2 76.1 Lymphocytes (%) (Auto) 7.3 6.4 Monocytes (%) (Auto) 15.0 15.6 Eosinophils (%) (Auto) 1.4 1.0 Basophils (%) (Auto) 1.1 0.9 Neutrophils # (Auto) 7.0 8.3 Lymphocytes # (Auto) 0.7 0.7 Monocytes # (Auto) 1.4 1.7 Eosinophils # (Auto) 0.1 0.1 Basophils # (Auto) 0.1 0.1 CBC Comment DIFF FINAL AUTO DIFF Differential Comment AUTO DIFF CONFIRMED Hematology Comments Blood Urea Nitrogen 53 54 Creatinine 6.64 6.75 Random Glucose 152 120 Total Protein 5.1 5.5 Albumin 2.0 2.1 Calcium Level 7.2 7.8 Alkaline Phosphatase 466 490 Aspartate Amino Transf (AST/SGOT) 18 22 Alanine Aminotransferase (ALT/SGPT) 20 19 Total Bilirubin 0.4 0.5 Sodium Level 138 134 Potassium Level 4.7 4.6 Chloride Level 103 103 Carbon Dioxide Level 24.5 20.7 Anion Gap 11 10 Estimat Glomerular Filtration Rate 8 8 Protein Corrected Calcium 8.3 Platelet Estimate LOW Platelet Morphology Comment NORMAL Ovalocytes 1+ Acanthocytes OCC Last 48 hours Impressions Lower Extremity Ultrasound 11/13/17 0000 Signed Impressions: Service Date/Time: Monday, November 13, 2017 07:52 - CONCLUSION: No DVT seen in either leg. Jewel Kaiser MD Lower Extremity Ultrasound 11/13/17 0000 Signed Impressions: Service Date/Time: Monday, November 13, 2017 07:59 - CONCLUSION: 1. Lower extremity venous mapping, as above. Brian Boateng MD Hand X-Ray 11/13/17 0000 Signed Impressions: Service Date/Time: Monday, November 13, 2017 10:18 - CONCLUSION: Osteoporosis. Extensive arterial calcifications. 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 No definite evidence of bony destruction or osteomyelitis Jared Upton MD Assessment and Plan Plan B UE ischemia, Will plan for B UE angiogram on morning. Likely to need surgical revascularization for maximal wound healing. Unfortunately, conduit limited. NPO after MN tomorrow. Issa Jansen MD FACS [employer] manager union [facility] [phone] Issa Jansen MD Nov 13, 2017 14:22
--- NOTE | 2017-11-13 14:36 | PD.CONS ---
History of Present Illness Service Infectious disease Consult Requested By Dr Goldberg Reason for Consult Evaluate patient with sepsis, left hand gangrene Primary Care Physician Meir Oliver DO Diagnoses: History of Present Illness Patient seen and examined. Records reviewed. Patient is a 67-year-old male, has been at [facility] for the last 15 days, transferred to [facility] for vascular evaluation. Patient has known end-stage renal disease and gets hemodialysis every Sunday and Sunday. He had a left upper extremity AV fistula, and it had some problem, so he underwent left upper extremity access revision, left upper extremity distal revascularization and interval ligation, last August 07, 2017. He was discharged, and apparently the fistula was working okay, and during that admission also he had that left middle finger dry gangrene which was felt to be ischemic in nature due to steal syndrome. As an outpatient, his fistula apparently stopped working, so he had a permacath placed in his right IJ. Patient stated that he's had problem on and off with low blood pressure for the last 4 months. The hypotension were getting worse and he ended up getting admitted at [facility] where he stayed for at least 15 days. During that admission, he had some positive blood culture done on November 05 that grew Enterobacter cloaca. Blood culture from November 07 were negative. His permacath was removed on November 07 and the culture of that was negative. Patient was apparently getting IV cefepime, and there was an infectious disease specialist monitoring him for his infection. Patient stated that he's had some reaction to the cefepime and he describes it as burning sensation. Patient is currently afebrile. There was evaluation of his AV fistula which shows thrombosis of his DRIL. He has now been transferred to [facility] for vascular evaluation. Infectious disease consultation has been requested to evaluate for sepsis. Review of Systems Constitutional: DENIES: Fever, Chills Eyes: DENIES: Eye pain Ears, nose, mouth, throat: DENIES: Nasal discharge, Oral lesions, Throat pain Respiratory: DENIES: Cough, Sputum production, Shortness of breath Cardiovascular: DENIES: Chest pain, Palpitations, Syncope Gastrointestinal: DENIES: Abdominal pain, Diarrhea, Nausea, Vomiting, Difficulty Swallowing Integumentary: COMPLAINS OF: Rash Neurologic: DENIES: Localized weakness Psychiatric: DENIES: Hallucinations Past Family Social History Allergies: Coded Allergies: adhesive (Unverified Adverse Reaction, Severe, SKIN BREAKDOWN/ULCERS, ) Uncoded Allergies: MSG (Allergy, Intermediate, bowel problems, 08/02/17) Past Medical History ESRD DM CAD HF. HTN Enlarged liver, and ascites Past Surgical History Pacemaker CABGx4 with mitral valvuloplasty in february 2005 Right fifth toe amputation Right shoulder rotator cuff repair Has had repeated paracentesis to drain his ascites Active Ordered Medications Current Medications Medications (Trade) Dose Ordered Sig/Renny Route Start Time Stop Time Status Last Admin (NS Flush) 2 ml UNSCH PRN IV FLUSH 11/12/17 20:00 (NS Flush) 2 ml BID IV FLUSH 11/12/17 21:00 11/13/17 09:00 (Tylenol) 650 mg Q4H PRN PO 11/12/17 20:00 (Zofran Inj) 4 mg Q6H PRN IVP 11/12/17 20:00 (Narcan Inj) 0.4 mg UNSCH PRN IV PUSH 11/12/17 20:00 (Milk Of Magnesia Liq) 30 ml Q12H PRN PO 11/12/17 20:00 (Senokot) 17.2 mg Q12H PRN PO 11/12/17 20:00 (Dulcolax Supp) 10 mg DAILY PRN RECTAL 11/12/17 20:00 (Lactulose Liq) 30 ml DAILY PRN PO 11/12/17 20:00 (Morphine Inj) 2 mg Q3H PRN IV PUSH 11/12/17 23:30 (Morphine Inj) 4 mg Q3H PRN IV PUSH 11/12/17 23:30 (Heparin Inj) 5,000 units Q8HR SQ 11/13/17 06:00 11/13/17 06:12 (Synthroid) 125 mcg DAILY@0600 PO 11/13/17 06:00 11/13/17 06:13 (D50w (Vial) Inj) 50 ml UNSCH PRN IV PUSH 11/12/17 23:30 (Glucagon Inj) 1 mg UNSCH PRN OTHER 11/12/17 23:30 (NovoLOG SUPPLEMENTAL SCALE) 1 ACHS SLIDING SCALE SQ 11/13/17 08:00 (Phoslo) 667 mg TID PO 11/13/17 09:00 (Coreg) 3.125 mg DAILY PO 11/13/17 09:00 (Ecotrin Ec) 162 mg DAILY PO 11/13/17 09:00 (Plavix) 75 mg DAILY PO 11/13/17 09:00 (Baciguent Oint) 1 applic Q12HR TOPICAL 11/13/17 21:00 Sodium Chloride 1,000 ml @ 0 mls/hr Q0M PRN OTHER 11/13/17 14:09 UNV (Heparin Inj) 8,000 units UNSCH PRN IV FLUSH 11/13/17 14:15 UNV Sodium Chloride 1,000 ml @ 200 mls/hr Q5H PRN IV 11/13/17 14:09 UNV Sodium Chloride 1,000 ml @ 0 mls/hr Q0M PRN OTHER 11/13/17 14:09 UNV (Mannitol Inj) 12.5 gm UNSCH PRN IV 11/13/17 14:15 UNV Albumin Human 100 ml @ 60 mls/hr UNSCH PRN IV 11/13/17 14:15 UNV (NS Flush) 5 ml UNSCH PRN IV FLUSH 11/13/17 14:15 UNV (Heparin Inj) UNSCH PRN .XX 11/13/17 14:15 UNV (Gentamicin Inj) 20 mg UNSCH PRN OTHER 11/13/17 14:15 UNV (Zofran Inj) 4 mg UNSCH PRN IV PUSH 11/13/17 14:15 UNV (Tylenol) 650 mg UNSCH PRN PO 11/13/17 14:15 UNV (Benadryl) 25 mg UNSCH PRN PO 11/13/17 14:15 UNV (Nitrostat Sl) 0.4 mg UNSCH PRN SL 11/13/17 14:15 UNV (Catapres) 0.1 mg UNSCH PRN PO 11/13/17 14:15 UNV (Epogen Inj) 4,000 units UNSCH PRN IV PUSH 11/13/17 14:15 UNV (Gelfoam 12 Mm/7 Mm Top) 1 foam UNSCH PRN TOP 11/13/17 14:15 UNV Family History Father COPD Social History Quit smoking 20 years ago rare ETOH use No illicit drugs Physical Exam Vital Signs Vital Signs Date Time Temp Pulse Resp B/P (MAP) Pulse Ox O2 Delivery O2 Flow Rate FiO2 11/13/17 12:10 97.3 83 18 114/67 (83) 98 11/13/17 08:39 93 Nasal Cannula 2.00 11/13/17 08:10 98.4 83 18 116/68 (84) 99 11/13/17 08:00 85 11/13/17 04:00 97.3 67 20 105/57 (73) 100 11/13/17 00:00 68 11/13/17 00:00 97.9 62 19 99/52 (68) 100 11/13/17 00:00 Nasal Cannula 2.00 11/12/17 21:00 68 11/12/17 20:00 97.7 75 22 118/64 (82) 95 Physical Exam GENERAL: Patient is an obese, well-developed male, awake and alert, not in respiratory distress. SKIN: Cool and dry. Has scattered ecchymoses and purpuric lesions likely from venipuncture. HEAD: Atraumatic. Normocephalic. No temporal wasting, or tenderness. EYES: Rives conjunctiva. No petechia or hemorrhage. Pupils equal, round and reactive to light. Extraocular movements full and intact. No scleral icterus. No injection or drainage. EARS, NOSE AND THROAT: Nose without bleeding or purulent nasal discharge. No sinus tenderness. Mucous membranes pink and moist. No oral lesions noted. NECK: Trachea midline, supple and not tender CARDIOVASCULAR: Regular rate and rhythm. Has systolic murmur over L precordium and base of the heart RESPIRATORY: Clear to auscultation. Breath sounds equal bilaterally. No rales , wheezing or rhonchi. Decreased at both bases ABDOMEN: Distended and protuberant, non-tender, bowel sounds present and hypoactive. No guarding. No rebound. Liver edge palpable on R side of abdomen, not tender. EXTREMITIES: No clubbing, cyanosis. Has edema of both feet, well healed amputation R 5th toe. TAHIR has dry gangrene of LMF. He also has multiple dry ulcers in his fingers both hands with black eschar, no evidence of infection. No calf tenderness. NEUROLOGICAL: Awake and alert. Cranial nerves grossly intact. Motor grossly within normal limits. PSYCHIATRIC: Normal affect, calm and cooperative. LINE: No evidence of infection Previous permacath site RIJ base, with dry and intact dressings R groin vascath in place, with dry dressing Laboratory Laboratory Tests Test 11/13/17 00:10 11/13/17 06:50 White Blood Count 9.2 10.9 Red Blood Count 3.00 3.30 Hemoglobin 9.3 10.1 Hematocrit 27.4 30.6 Mean Corpuscular Volume 91.3 92.8 Mean Corpuscular Hemoglobin 31.0 30.5 Mean Corpuscular Hemoglobin Concent 33.9 32.8 Red Cell Distribution Width 17.2 17.7 Platelet Count 117 136 Mean Platelet Volume 9.6 10.2 Neutrophils (%) (Auto) 75.2 76.1 Lymphocytes (%) (Auto) 7.3 6.4 Monocytes (%) (Auto) 15.0 15.6 Eosinophils (%) (Auto) 1.4 1.0 Basophils (%) (Auto) 1.1 0.9 Neutrophils # (Auto) 7.0 8.3 Lymphocytes # (Auto) 0.7 0.7 Monocytes # (Auto) 1.4 1.7 Eosinophils # (Auto) 0.1 0.1 Basophils # (Auto) 0.1 0.1 CBC Comment DIFF FINAL AUTO DIFF Differential Comment AUTO DIFF CONFIRMED Hematology Comments Blood Urea Nitrogen 53 54 Creatinine 6.64 6.75 Random Glucose 152 120 Total Protein 5.1 5.5 Albumin 2.0 2.1 Calcium Level 7.2 7.8 Alkaline Phosphatase 466 490 Aspartate Amino Transf (AST/SGOT) 18 22 Alanine Aminotransferase (ALT/SGPT) 20 19 Total Bilirubin 0.4 0.5 Sodium Level 138 134 Potassium Level 4.7 4.6 Chloride Level 103 103 Carbon Dioxide Level 24.5 20.7 Anion Gap 11 10 Estimat Glomerular Filtration Rate 8 8 Protein Corrected Calcium 8.3 Platelet Estimate LOW Platelet Morphology Comment NORMAL Ovalocytes 1+ Acanthocytes OCC Result Diagram: 11/13/17 0650 11/13/17 0650 Imaging RADIOLOGY STUDIES/FILMS REVIEWED Lower Extremity Ultrasound 11/13/17 0000 Signed Impressions: Service Date/Time: Monday, November 13, 2017 07:52 - CONCLUSION: No DVT seen in either leg. Jewel Kaiser MD Hand X-Ray 11/13/17 0000 Signed Impressions: Service Date/Time: Monday, November 13, 2017 10:18 - CONCLUSION: Osteoporosis. Extensive arterial calcifications. 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 No definite evidence of bony destruction or osteomyelitis Jared Stone, MD Assessment and Plan Assessment and Plan IMPRESSION Enterobacter bacteremia, BC 11/05 (+), ?source - permacath C/S negative (?due to previous Abx) - concern with infected thrombus LUE AVF - ?other endovascular focus Thrombosis DRIL LUE AVF ESRD on HD MWF Ascites, ?primary liver problem or other etiology LMF dry gangrene RECOMMENDATION Repeat BC at new HD cath IV Rocephin to cover Enterobacter Vascular evaluation Follow new C/S I will follow along with you Thank you for this consultation Discussed Condition With Discussed plan with patient and Loraine Martinez MD Nov 13, 2017 14:36
[2017-11-13] MEDS: ACETAMINOPHEN 325 MG TAB PO PRN (15:15)
[2017-11-13] MEDS: cefTRIAXone INJ 2,000 MG in SODIUM CHLORIDE 0.9% INJ 100 ML IV SCH (16:00)
--- NOTE | 2017-11-13 20:53 | HHI.PR ---
Subjective Remarks Patient says he is feeling all right. Denies any chest or shortness of breath. Reports pain is controlled. Objective Vital Signs Date Time Temp Pulse Resp B/P (MAP) Pulse Ox O2 Delivery O2 Flow Rate FiO2 11/13/17 16:10 97.4 62 18 102/52 (69) 100 11/13/17 12:10 97.3 83 18 114/67 (83) 98 11/13/17 11:42 80 11/13/17 08:39 93 Nasal Cannula 2.00 11/13/17 08:10 98.4 83 18 116/68 (84) 99 11/13/17 08:00 85 11/13/17 04:00 97.3 67 20 105/57 (73) 100 11/13/17 00:00 68 11/13/17 00:00 97.9 62 19 99/52 (68) 100 11/13/17 00:00 Nasal Cannula 2.00 11/12/17 21:00 68 I/O 11/12/17 11/12/17 11/12/17 11/13/17 11/13/17 11/13/17 07:00 15:00 23:00 07:00 15:00 23:00 Intake Total 0 ml 0 ml Output Total 0 ml Balance 0 ml 0 ml Intake Oral 0 ml 0 ml Output Urine Total 0 ml # Voids 0 # Bowel Movements 1 1 Result Diagram: 11/13/17 0650 11/13/17 0650 Objective Remarks GENERAL: in bed. Appears comfortable. SKIN: Warm and dry. HEAD: Normocephalic. EYES: No scleral icterus. No injection or drainage. NECK: Supple, trachea midline. No JVD. CARDIOVASCULAR: Regular rate and rhythm without murmurs, gallops, or rubs. RESPIRATORY: Breath sounds equal bilaterally. No accessory muscle use. GASTROINTESTINAL: Abdomen soft, non-tender, nondistended. MUSCULOSKELETAL: No cyanosis, or edema. patient does have dry gangrene of left third finger. No erythema proximally. BACK: Nontender without obvious deformity. No CVA tenderness. A/P Assessment and Plan 67-year-old male with a history of end-stage renal disease on hemodialysis Sunday, diabetes, CAD, CHF, hypertension was transferred from [facility] to be evaluated by vascular surgery. //AV Fistula occlusion Records from [facility] reviewed and shows occlusion to left av fistula -Consult vascular, patient known to Dr. Jansen -Cont ASA and Plavix -Pain management with Morphine IV = Discussed with hand surgery today, and we'll order occupational therapy, echocardiogram to rule out thrombus, EKG. Suspect steal syndrome. Appreciate vascular surgery assistance. Angiogram plan for as per vascular surgery. //LH gangrene, left middle finger necrotic -Consult ID for recommendations -Consult Hand surgery for recommendations = Worked up as above. Appreciate information systems consultant assistance. //Diabetes, chronic -Accu checks with SSI = Blood sugars acceptable. Continue to monitor. //ESRD on Dialysis, MWF -Consult nephrology for recommendations, patient known to Dr. Pereyra -Resume home calcium acetate 667mg TID = Nephrology following. Appreciate assistance. //Hypertension, chronic -Cont coreg 3.125mg Daily, monitor vitals //Hypothyroid, chronic: Continue home medications //DVT prophylaxis: Heparin SQ Discharge Planning plan angiogram on 11/15. Occupational therapy following. Likely discharge home when cleared by vascular surgery, hand surgery. Vivek Goldberg MD Nov 13, 2017 20:53
[2017-11-13] MEDS: BACITRACIN TOP OINT 15 GM TUBE TOPICAL SCH (21:00)
[2017-11-14] VITALS (11 sets, daily range): BP systolic 101–130; BP diastolic 53–65; PULSE 64–91; RESP 18–21; TEMP 97.4–98.3; O2SAT 90–100
--- NOTE | 2017-11-14 00:13 | EKG ---
Date Performed: 11/13/2017 Time Performed: 10:37:18 PTAGE: 67 years EKG: PROBABLE ATRIAL FLUTTER/TACHYCARDIA MARKED LEFT AXIS DEVIATION POSSIBLE ANTERIOR MYOCARDIAL INFARCTION , OF INDETERMINATE AGE ABNORMAL ECG PREVIOUS TRACING : 07/31/2017 11.41 Compared to prior tracing, previously [facility]paced DOCTOR: Nikita Kellogg Interpretating Date/Time 11/14/2017 00:12:33
[2017-11-14] MEDS: LEVOTHYROXINE SODIUM 125 MCG TAB PO SCH (05:42)
[2017-11-14] MEDS: HEPARIN SODIUM - SQ 10,000 UNITS/ML VIAL SQ SCH ×2 (05:42→14:00)
--- NOTE | 2017-11-14 06:51 | PD.VS.PN ---
Pre-operative Note Pre-operative diagnosis: B UE hand ischemia, ESRD Planned procedure: Thoracic aortogram w/ B UE angiogram Interval History: Pt has hand crocheter lesions. No palpable radial pulses. Planned for HD today ( Sun). Labs: Laboratory Results Test 11/13/17 06:50 Anion Gap 10 MEQ/L (5-15) Blood Urea Nitrogen 54 MG/DL (7-18) Creatinine 6.75 MG/DL (0.60-1.30) Random Glucose 120 MG/DL (74-106) Total Protein 5.5 GM/DL (6.4-8.2) Albumin 2.1 GM/DL (3.4-5.0) Calcium Level 7.8 MG/DL (8.5-10.1) Alkaline Phosphatase 490 U/L (45-117) Aspartate Amino Transf (AST/SGOT) 22 U/L (15-37) Alanine Aminotransferase (ALT/SGPT) 19 U/L (12-78) Total Bilirubin 0.5 MG/DL (0.2-1.0) Sodium Level 134 MEQ/L (136-145) Potassium Level 4.6 MEQ/L (3.5-5.1) Chloride Level 103 MEQ/L (98-107) Carbon Dioxide Level 20.7 MEQ/L (21.0-32.0) Hematocrit 30.6 % (39.0-51.0) Hematology Comments Hemoglobin 10.1 GM/DL (13.0-17.0) Mean Corpuscular Hemoglobin 30.5 PG (27.0-34.0) Mean Corpuscular Hemoglobin Concent 32.8 % (32.0-36.0) Mean Corpuscular Volume 92.8 FL (80.0-100.0) Mean Platelet Volume 10.2 FL (7.0-11.0) Platelet Count 136 TH/MM3 (150-450) Red Blood Count 3.30 MIL/MM3 (4.50-5.90) Red Cell Distribution Width 17.7 % (11.6-17.2) White Blood Count 10.9 TH/MM3 (4.0-11.0) Blood: none needed Imaging: Last Impressions Lower Extremity Ultrasound 11/13/17 0000 Signed Impressions: Service Date/Time: Monday, November 13, 2017 07:52 - CONCLUSION: No DVT seen in either leg. Jewel Kaiser MD Hand X-Ray 11/13/17 0000 Signed Impressions: Service Date/Time: Monday, November 13, 2017 10:18 - CONCLUSION: Osteoporosis. Extensive arterial calcifications. 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 No definite evidence of bony destruction or osteomyelitis Jared Upton MD Orders: NPO after MN Post-operative destination: DOCU Operative site marked: No (bilateral UE imaging) Consent: Informed consent has been obtained from Hola Hernandez. I have explained the procedure in detail and discussed the risks, benefits, and potential complications. All questions have been answered. Issa Jansen MD Nov 14, 2017 06:51
[2017-11-14] MEDS: INSULIN ASPART SUPPLEMENTAL SCALE SQ SCH ×4 (08:00→21:00)
[2017-11-14] MEDS: CARVEDILOL 3.125 MG TAB PO SCH (08:47)
[2017-11-14] MEDS: ASPIRIN EC 81 MG TABEC PO SCH (08:48)
[2017-11-14] MEDS: CALCIUM ACETATE 667 MG CAP PO SCH ×3 (08:49→17:56)
[2017-11-14] MEDS: CLOPIDOGREL 75 MG TAB PO SCH (08:49)
[2017-11-14] MEDS: SODIUM CHLORIDE 0.9% FLUSH 10 ML FLUSH IV FLUSH SCH (08:49)
[2017-11-14] MEDS: BACITRACIN TOP OINT 15 GM TUBE TOPICAL SCH (08:50)
--- NOTE | 2017-11-14 16:34 | HHI.NPPN ---
Subjective History of Present Illness Patient is a 67-year-old male with a history of end-stage renal disease on hemodialysis Sunday/Sunday/ Sunday, diabetes, CAD, CHF, hypertension was transferred from [facility] to be evaluated by vascular surgery. Patient states he was admitted to [facility] because he had low blood pressure readings at home. AV fistula has not been functioning or used for 6- 8 weeks and they have been using a permacath for dialysis. Permacath has been removed secondary to possible infection and vas cath has been placed. He has been treated with cefepime IV. Last dialysis was Sunday and 1.5 L removed. Patient has a necrotic left middle finger that patient states has been going on for the last 12 weeks. Additional Remarks Resting comfortably with no complaints. Planning on going to dialysis and angiogram tomorrow. (Kathleen Olguin) Review of Systems Respiratory Respiratory Remarks Denies any SOB (Kathleen Olguin) Cardiovascular Cardiac Remarks Denies any CP (Kathleen Olguin) Gastrointestinal GI Remarks Denies any abdominal pain (Kathleen Olguin) Genitourinary Remarks (Kathleen Olguin) Objective Data Data Vital Signs Date Time Temp Pulse Resp B/P (MAP) Pulse Ox O2 Delivery O2 Flow Rate FiO2 11/14/17 13:46 90 Nasal Cannula 2.00 11/14/17 12:06 97.6 75 19 114/57 (76) 90 11/14/17 12:00 77 11/14/17 12:00 77 11/14/17 08:10 97.9 85 18 104/61 (75) 91 11/14/17 08:00 82 11/14/17 04:00 72 11/14/17 04:00 97.4 76 21 117/65 (82) 100 11/14/17 00:01 Nasal Cannula 2.00 11/14/17 00:00 97.5 64 19 101/61 (74) 100 11/14/17 00:00 91 11/13/17 23:00 98 Nasal Cannula 3.00 11/13/17 20:00 Nasal Cannula 2.00 11/13/17 20:00 80 11/13/17 20:00 97.6 61 18 96/54 (68) 100 (Kathleen Olguin) -: 11/13/17 0650 11/13/17 0650 Imaging Last Impressions Lower Extremity Ultrasound 11/13/17 0000 Signed Impressions: Service Date/Time: Monday, November 13, 2017 07:52 - CONCLUSION: No DVT seen in either leg. Jewel Kaiser MD Hand X-Ray 11/13/17 0000 Signed Impressions: Service Date/Time: Monday, November 13, 2017 10:18 - CONCLUSION: Osteoporosis. Extensive arterial calcifications. 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 No definite evidence of bony destruction or osteomyelitis Jared Upton MD (GelKathleen gomes SUGAR CONTROLLER) Physical Exam General Appearance: Well Developed, Well Nourished, No Acute Distress, Comfortable (GelKathleen gomes M. SUGAR CONTROLLER) Eyes Eye Exam: Pupils Equal (GelKathleen gomes M. SUGAR CONTROLLER) Throat Throat Exam: Oral Mucosa [place] & Moist (Kathleen Olguin M. SUGAR CONTROLLER) Pulmonary Resp Exam: Clear Bilaterally, Breath Sounds Equal, No Distress (GellerLandy kincaidne M. SUGAR CONTROLLER) Cardiology CV Exam: Regular (Kathleen Olguin. SUGAR CONTROLLER) Gastrointestinal/Abdomen GI Exam: Soft, Non-Tender, Non-Distended (Kathleen Olguin M. SUGAR CONTROLLER) Musculoskeletal MS Exam: Good Strength (Landy Olguinne M. SUGAR CONTROLLER) Integumentary Skin Remarks necrotic area on tip on left hand middle finger (Kathleen Olguin. SUGAR CONTROLLER) Extremeties Extremities Exam: Trace Edema (Kathleen Olguin M. SUGAR CONTROLLER) Neurologic Neuro Exam: Alert (JoshualerLandy kincaidne M. SUGAR CONTROLLER) Psychiatric Psych Exam: Appropriate Responses (Kathleen Olguin M. SUGAR CONTROLLER) Assessment/Plan Problem List: (1) ESRD (end stage renal disease) on dialysis ICD Codes: N18.6 - End stage renal disease; Z99.2 - Dependence on renal dialysis Plan: Dialysis MWF- vas cath Perma cath removed for possible infection: ID consulted Continue phoslo Plan for dialysis today; For angiogram on . Labs in AM (2) Gangrene of finger of left hand ICD Codes: I96 - Gangrene, not elsewhere classified Plan: necrotic area on left hand middle finger Hand surgery consulted angiogram in am (3) AV fistula occlusion ICD Codes: T82.898A - Other specified complication of vascular prosthetic devices, implants and grafts, initial encounter Plan: Vascular surgery consulted (4) Diabetes mellitus ICD Codes: E11.9 - Type 2 diabetes mellitus without complications Plan: Maintain BS between 140mg/dl to 180 mg/dl (Kathleen Olguin) Problem List: (1) ESRD (end stage renal disease) on dialysis ICD Codes: N18.6 - End stage renal disease; Z99.2 - Dependence on renal dialysis Plan: Dialysis MWF- vas cath Perma cath removed for possible infection: ID consulted Continue phoslo Plan for dialysis today; For angiogram on . Labs in AM Patient seen and examined, agree with above. Patient is still waiting for HD. Called the dialysis, they will call him now. No acute indication, will do tomorrow after the angiogram. D/W the family. (2) Gangrene of finger of left hand ICD Codes: I96 - Gangrene, not elsewhere classified Plan: necrotic area on left hand middle finger Hand surgery consulted angiogram in am (3) AV fistula occlusion ICD Codes: T82.898A - Other specified complication of vascular prosthetic devices, implants and grafts, initial encounter Plan: Vascular surgery consulted (4) Diabetes mellitus ICD Codes: E11.9 - Type 2 diabetes mellitus without complications Plan: Maintain BS between 140mg/dl to 180 mg/dl (Kim Santos MD) Kathleen Olguin Nov 14, 2017 16:34 Kim Santos MD Nov 14, 2017 18:39
[2017-11-14] MEDS: cefTRIAXone INJ 2,000 MG in SODIUM CHLORIDE 0.9% INJ 100 ML IV SCH (17:56)
[2017-11-14 21:45] LABS: ALBUMIN 2.1 GM/DL (3.4-5.0); CALCIUM 8.3 MG/DL (8.5-10.1); CREATININE 8.32 MG/DL (0.60-1.30); MAGNESIUM 2.3 MG/DL (1.5-2.5); PHOSPHORUS 5.2 MG/DL (2.5-4.9)
--- NOTE | 2017-11-14 22:24 | HHI.PR ---
Subjective Remarks Patient seen today around 1 PM. Since he is feeling all right. Denies any chest pain or shortness of breath. Objective Vital Signs Date Time Temp Pulse Resp B/P (MAP) Pulse Ox O2 Delivery O2 Flow Rate FiO2 11/14/17 20:01 98.2 76 18 114/56 (75) 97 11/14/17 16:10 97.6 80 19 130/58 (82) 95 11/14/17 16:00 81 11/14/17 13:46 90 Nasal Cannula 2.00 11/14/17 12:06 97.6 75 19 114/57 (76) 90 11/14/17 12:00 77 11/14/17 12:00 77 11/14/17 08:10 97.9 85 18 104/61 (75) 91 11/14/17 08:00 82 11/14/17 04:00 72 11/14/17 04:00 97.4 76 21 117/65 (82) 100 11/14/17 00:01 Nasal Cannula 2.00 11/14/17 00:00 97.5 64 19 101/61 (74) 100 11/14/17 00:00 91 11/13/17 23:00 98 Nasal Cannula 3.00 I/O 11/13/17 11/13/17 11/13/17 11/14/17 11/14/17 11/14/17 07:00 15:00 23:00 07:00 15:00 23:00 Intake Total 0 ml 0 ml 0 ml 700 ml Output Total 0 ml 0 ml Balance 0 ml 0 ml 0 ml 700 ml Intake Oral 0 ml 0 ml 0 ml 600 ml IV Total 100 ml Output Urine Total 0 ml 0 ml # Voids 0 0 # Bowel Movements 1 1 0 1 Result Diagram: 11/13/17 0650 11/14/172042 Objective Remarks GENERAL: in bed. Appears comfortable.no change on exam. SKIN: Warm and dry. HEAD: Normocephalic. EYES: No scleral icterus. No injection or drainage. NECK: Supple, trachea midline. No JVD. CARDIOVASCULAR: Regular rate and rhythm without murmurs, gallops, or rubs. RESPIRATORY: Breath sounds equal bilaterally. No accessory muscle use. GASTROINTESTINAL: Abdomen soft, non-tender, nondistended. MUSCULOSKELETAL: No cyanosis, or edema. patient does have dry gangrene of left third finger. No erythema proximally. BACK: Nontender without obvious deformity. No CVA tenderness. A/P Assessment and Plan 67-year-old male with a history of end-stage renal disease on hemodialysis Sunday, diabetes, CAD, CHF, hypertension was transferred from [facility] to be evaluated by vascular surgery. //AV Fistula occlusion Records from [facility] reviewed and shows occlusion to left av fistula -Consult vascular, patient known to Dr. Jansen -Cont ASA and Plavix -Pain management with Morphine IV = Discussed with hand surgery today, and we'll order occupational therapy, echocardiogram to rule out thrombus, EKG. Suspect steal syndrome. Appreciate vascular surgery assistance. Angiogram plan for as per vascular surgery. = 11/14. Plan for angiogram in the morning. Patient nothing by mouth at midnight. //LH gangrene, left middle finger necrotic -Consult ID for recommendations -Consult Hand surgery for recommendations = Worked up as above. Appreciate jd edwards consultant assistance. //Diabetes, chronic -Accu checks with SSI = Blood sugars continue acceptable. Continue to monitor. //ESRD on Dialysis, MWF -Consult nephrology for recommendations, patient known to Dr. Pereyra -Resume home calcium acetate 667mg TID = Nephrology following. Appreciate assistance. Dialysis as per nephrology. //Hypertension, chronic -Cont coreg 3.125mg Daily, monitor vitals //Hypothyroid, chronic: Continue home medications //DVT prophylaxis: Heparin SQ Discharge Planning plan angiogram on 11/15. Occupational therapy following. Likely discharge home when cleared by vascular surgery, hand surgery. Vivek Goldberg MD Nov 14, 2017 22:24
[2017-11-15] MEDS: SODIUM CHLORIDE 0.9% FLUSH 10 ML FLUSH IV FLUSH SCH ×3 (00:02→22:14)
[2017-11-15] MEDS: HEPARIN SODIUM - SQ 10,000 UNITS/ML VIAL SQ SCH ×4 (00:02→22:14)
[2017-11-15] MEDS: BACITRACIN TOP OINT 15 GM TUBE TOPICAL SCH ×3 (00:03→22:14)
[2017-11-15 03:43] VITALS: BP 115/56; PULSE 82; RESP 18; TEMP 97.7; O2SAT 96
[2017-11-15] MEDS: LEVOTHYROXINE SODIUM 125 MCG TAB PO SCH (06:56)
[2017-11-15 08:00] VITALS: BP 104/63; PULSE 83; RESP 16; TEMP 97.6; O2SAT 91
[2017-11-15] MEDS: INSULIN ASPART SUPPLEMENTAL SCALE SQ SCH ×4 (08:00→21:00)
[2017-11-15] MEDS: ASPIRIN EC 81 MG TABEC PO SCH (09:00)
[2017-11-15] MEDS: CLOPIDOGREL 75 MG TAB PO SCH (09:00)
[2017-11-15] MEDS: CALCIUM ACETATE 667 MG CAP PO SCH ×3 (09:00→18:47)
[2017-11-15] MEDS: CARVEDILOL 3.125 MG TAB PO SCH (09:24)
--- NOTE | 2017-11-15 10:45 | ECHRPT ---
Indication: Vegetations CONCLUSIONS The left ventricular systolic function is normal with an estimated ejection fraction in the range of 55-60%. Wall thickness is measured at the upper limits of normal. Normal left ventricular size. The left atrial size is mildly dilated. Mild thickening of the mitral valve leaflets. Trace mitral valve regurgitation. Moderate mitral annular calcification. Aortic valve sclerosis is present. No aortic valve regurgitation. No aortic valve stenosis. The pulmonary valve is not well visualized. BP: 114 / 67 HR: 83 Rhythm: Other MEASUREMENTS (Male / Female) Normal Values Technical Quality:Fair 2D ECHO LV Diastolic Diameter PLAX 5.2 cm 4.2 - 5.9 / 3.9 - 5.3 cm LV Systolic Diameter PLAX 3.9 cm IVS Diastolic Thickness 1.3 cm 0.6 - 1.0 / 0.6 - 0.9 cm LVPW Diastolic Thickness 1.3 cm 0.6 - 1.0 / 0.6 - 0.9 cm LV Relative Wall Thickness 0.5 FINDINGS LEFT VENTRICLE The left ventricular systolic function is normal with an estimated ejection fraction in the range of 55-60%. Wall thickness is measured at the upper limits of normal. Normal left ventricular size. RIGHT VENTRICLE Normal right ventricular size and systolic function. LEFT ATRIUM The left atrial size is mildly dilated. RIGHT ATRIUM The right atrial size is normal. ATRIAL SEPTUM Normal atrial septal thickness without atrial level shunting by limited color doppler interrogation. AORTA The aortic root and proximal ascending aorta are normal in size on limited imaging. MITRAL VALVE Mild thickening of the mitral valve leaflets. Trace mitral valve regurgitation. Moderate mitral annular calcification. AORTIC VALVE Trileaflet aortic valve. Aortic valve sclerosis is present. No aortic valve regurgitation. No aortic valve stenosis. TRICUSPID VALVE Structurally normal tricuspid valve. No tricuspid valve stenosis or regurgitation. PULMONARY VALVE The pulmonary valve is not well visualized. VESSELS The inferior vena cava is normal in size. PERICARDIUM No pericardial effusion. Levi Machado MD, FACC (Electronically Signed) Final Date:15 November 2017 10:44
--- NOTE | 2017-11-15 10:52 | HHI.NPPN ---
Subjective History of Present Illness Patient is a 67-year-old male with a history of end-stage renal disease on hemodialysis Sunday/Sunday/ Sunday, diabetes, CAD, CHF, hypertension was transferred from [facility] to be evaluated by vascular surgery. Patient states he was admitted to [facility] because he had low blood pressure readings at home. AV fistula has not been functioning or used for 6- 8 weeks and they have been using a permacath for dialysis. Permacath has been removed secondary to possible infection and vas cath has been placed. He has been treated with cefepime IV. Last dialysis was Sunday and 1.5 L removed. Patient has a necrotic left middle finger that patient states has been going on for the last 12 weeks. Additional Remarks Resting comfortably with no complaints. Planning on angiogram and dialysis after (Kathleen Olguin) Review of Systems Respiratory Respiratory Remarks Denies any SOB (Kathleen Olguin) Cardiovascular Cardiac: Edema Cardiac Remarks Denies any CP (Kathleen Olguin) Gastrointestinal GI Remarks Denies any abdominal pain (Kathleen Olguin) Genitourinary Remarks (Kathleen Olguin) Objective Data Data Vital Signs Date Time Temp Pulse Resp B/P (MAP) Pulse Ox O2 Delivery O2 Flow Rate FiO2 11/15/17 08:00 83 11/15/17 08:00 97.6 83 16 104/63 (77) 91 11/14/17 23:28 98.3 77 18 109/53 (71) 97 11/14/17 20:01 98.2 76 18 114/56 (75) 97 11/14/17 20:00 84 11/14/17 19:00 97 Nasal Cannula 2.00 11/14/17 16:10 97.6 80 19 130/58 (82) 95 11/14/17 16:00 81 11/14/17 13:46 90 Nasal Cannula 2.00 11/14/17 12:06 97.6 75 19 114/57 (76) 90 11/14/17 12:00 77 11/14/17 12:00 77 (Kathleen Olguin) -: 11/13/17 0650 1/31/18 2043 Physical Exam General Appearance: Well Developed, Well Nourished, No Acute Distress, Comfortable (Kathleen Olguin) Eyes Eye Exam: Pupils Equal (Kathleen Olguin) Throat Throat Exam: Oral Mucosa [place] & Moist (Kathleen Olguin) Pulmonary Resp Exam: Clear Bilaterally, Breath Sounds Equal, No Distress (Kathleen Olguin) Cardiology CV Exam: Regular (Kathleen Olguin) Gastrointestinal/Abdomen GI Exam: Soft, Non-Tender, Non-Distended (Kathleen Olguin) Musculoskeletal MS Exam: Good Strength (Kathleen Olguin) Integumentary Skin Remarks necrotic area on tip on left hand middle finger (Kathleen Olguin) Extremeties Extremities Exam: Trace Edema (Kathleen Olguin) Neurologic Neuro Exam: Alert (Kathleen Olguin) Psychiatric Psych Exam: Appropriate Responses (Kathleen Olguin) Assessment/Plan Discussed Condition With: Spouse Assessment Summary: End Stage Renal Disease Problem List: (1) ESRD (end stage renal disease) on dialysis ICD Codes: N18.6 - End stage renal disease; Z99.2 - Dependence on renal dialysis Plan: Dialysis MWF- vas cath Perma cath removed for possible infection: ID consulted Continue phoslo Pitting edema noted Going to angiogram now and dialysis planned for after D/W the family. (2) Gangrene of finger of left hand ICD Codes: I96 - Gangrene, not elsewhere classified Plan: necrotic area on left hand middle finger Hand surgery consulted angiogram today (3) AV fistula occlusion ICD Codes: T82.898A - Other specified complication of vascular prosthetic devices, implants and grafts, initial encounter Plan: Vascular surgery consulted (4) Diabetes mellitus ICD Codes: E11.9 - Type 2 diabetes mellitus without complications Plan: Maintain BS between 140mg/dl to 180 mg/dl (Kathleen Olguin) Problem List: (1) ESRD (end stage renal disease) on dialysis ICD Codes: N18.6 - End stage renal disease; Z99.2 - Dependence on renal dialysis Plan: Dialysis MWF- vas cath Perma cath removed for possible infection: ID consulted Continue phoslo Pitting edema noted Going to angiogram now and dialysis planned for after D/W the family. Patient seen, examined and agree with above. I saw him after angiogram, will need revascularization of left arm along with closure of AVF, possibly next week. HD today and then Sat. (2) Gangrene of finger of left hand ICD Codes: I96 - Gangrene, not elsewhere classified Plan: necrotic area on left hand middle finger Hand surgery consulted angiogram today (3) AV fistula occlusion ICD Codes: T82.898A - Other specified complication of vascular prosthetic devices, implants and grafts, initial encounter Plan: Vascular surgery consulted (4) Diabetes mellitus ICD Codes: E11.9 - Type 2 diabetes mellitus without complications Plan: Maintain BS between 140mg/dl to 180 mg/dl (Kim Santos MD) Kathleen Olguin Nov 15, 2017 10:52 Kim Santos MD Nov 15, 2017 17:29
[2017-11-15] MEDS ORDERED: HEPARIN-NS/PF INJ 1,000 ML ONE (11:27)
[2017-11-15] MEDS ORDERED: MIDAZOLAM HCL 2 MG/2 ML VIAL ONE (11:27)
[2017-11-15] MEDS ORDERED: HEPARIN SODIUM - IV 10,000 UNITS/10 ML VIAL ONE (11:45)
--- NOTE | 2017-11-15 12:08 | HHI.PR ---
cc: Issa Jansen MD Immediate Post Op Note Procedure Date: Nov 15, 2017 Pre Op Diagnosis: B UE hand ischemia, ESRD Post Op Diagnosis: B UE hand ischemia, ESRD Surgeon: Issa Jansen Map Clerk(s): none Procedure: Thoracic aortogram w/ B UE angiogram Findings: 1. LEFT subclavian stenosis 2. occluded DRIL L UE 3. Poor opacification of L UE AVF 4. occluded L brachial artery (DRIL) 5. Patent R UE blood vessels to antecubitum Additional Information: L ATTENUATOR sheath removed in OR Complications: none Specimen(s) removed: none Estimated blood loss: 10mL Anesthesia: MAC Drains: None Patient to: Other (DOCU) Issa Jansen MD Nov 15, 2017 12:08
--- NOTE | 2017-11-15 12:15 | HHI.IDPN ---
Subjective Subjective Remarks Patient is a 67-year-old male, has been at [facility] for the last 15 days, transferred to [facility] for vascular evaluation. Patient has known end-stage renal disease and gets hemodialysis every Sunday and Sunday. He had a left upper extremity AV fistula, and it had some problem, so he underwent left upper extremity access revision, left upper extremity distal revascularization and interval ligation, last August 07, 2017. He was discharged, and apparently the fistula was working okay, and during that admission also he had that left middle finger dry gangrene which was felt to be ischemic in nature due to steal syndrome. As an outpatient, his fistula apparently stopped working, so he had a permacath placed in his right IJ. Patient stated that he's had problem on and off with low blood pressure for the last 4 months. The hypotension were getting worse and he ended up getting admitted at [facility] where he stayed for at least 15 days. During that admission, he had some positive blood culture done on November 05 that grew Enterobacter cloaca. Blood culture from November 07 were negative. His permacath was removed on November 07 and the culture of that was negative. Patient was apparently getting IV cefepime, and there was an infectious disease specialist monitoring him for his infection. Patient stated that he's had some reaction to the cefepime and he describes it as burning sensation. Patient is currently afebrile. There was evaluation of his AV fistula which shows thrombosis of his DRIL. He has now been transferred to [facility] for vascular evaluation. Infectious disease consultation has been requested to evaluate for sepsis. Notes reviewed temps ok Had angiogram today, the for HD - DRIL occluded, and has L SC stenosis One BC negative Spoke with HD RN Antibiotics Current Medications Rocephin Medications (Trade) Dose Ordered Sig/Renny Route Start Time Stop Time Status Last Admin (NS Flush) 2 ml UNSCH PRN IV FLUSH 11/12/17 20:00 (NS Flush) 2 ml BID IV FLUSH 11/12/17 21:00 11/15/17 09:26 (Tylenol) 650 mg Q4H PRN PO 11/12/17 20:00 (Zofran Inj) 4 mg Q6H PRN IVP 11/12/17 20:00 (Narcan Inj) 0.4 mg UNSCH PRN IV PUSH 11/12/17 20:00 (Milk Of Magnesia Liq) 30 ml Q12H PRN PO 11/12/17 20:00 (Senokot) 17.2 mg Q12H PRN PO 11/12/17 20:00 (Dulcolax Supp) 10 mg DAILY PRN RECTAL 11/12/17 20:00 (Lactulose Liq) 30 ml DAILY PRN PO 11/12/17 20:00 (Morphine Inj) 2 mg Q3H PRN IV PUSH 11/12/17 23:30 (Morphine Inj) 4 mg Q3H PRN IV PUSH 11/12/17 23:30 (Heparin Inj) 5,000 units Q8HR SQ 11/13/17 06:00 11/15/17 06:00 (Synthroid) 125 mcg DAILY@0600 PO 11/13/17 06:00 11/15/17 06:56 (D50w (Vial) Inj) 50 ml UNSCH PRN IV PUSH 11/12/17 23:30 (Glucagon Inj) 1 mg UNSCH PRN OTHER 11/12/17 23:30 (NovoLOG SUPPLEMENTAL SCALE) 1 ACHS SLIDING SCALE SQ 11/13/17 08:00 11/14/17 17:55 (Phoslo) 667 mg TID PO 11/13/17 09:00 11/14/17 17:56 (Coreg) 3.125 mg DAILY PO 11/13/17 09:00 11/15/17 09:24 (Ecotrin Ec) 162 mg DAILY PO 11/13/17 09:00 (Plavix) 75 mg DAILY PO 11/13/17 09:00 (Baciguent Oint) 1 applic Q12HR TOPICAL 11/13/17 21:00 11/15/17 09:25 Sodium Chloride 1,000 ml @ 0 mls/hr Q0M PRN OTHER 11/13/17 14:09 (Heparin Inj) 8,000 units UNSCH PRN IV FLUSH 11/13/17 14:15 Sodium Chloride 1,000 ml @ 200 mls/hr Q5H PRN IV 11/13/17 14:09 Sodium Chloride 1,000 ml @ 0 mls/hr Q0M PRN OTHER 11/13/17 14:09 (Mannitol Inj) 12.5 gm UNSCH PRN IV 11/13/17 14:15 Albumin Human 100 ml @ 60 mls/hr UNSCH PRN IV 11/13/17 14:15 (NS Flush) 5 ml UNSCH PRN IV FLUSH 11/13/17 14:15 (Heparin Inj) UNSCH PRN .XX 11/13/17 14:15 (Gentamicin Inj) 20 mg UNSCH PRN OTHER 11/13/17 14:15 (Zofran Inj) 4 mg UNSCH PRN IV PUSH 11/13/17 14:15 (Tylenol) 650 mg UNSCH PRN PO 11/13/17 14:15 11/13/17 15:15 (Benadryl) 25 mg UNSCH PRN PO 11/13/17 14:15 (Nitrostat Sl) 0.4 mg UNSCH PRN SL 11/13/17 14:15 (Catapres) 0.1 mg UNSCH PRN PO 11/13/17 14:15 (Epogen Inj) 4,000 units UNSCH PRN IV PUSH 11/13/17 14:15 (Gelfoam 12 Mm/7 Mm Top) 1 foam UNSCH PRN TOP 11/13/17 14:15 Ceftriaxone Sodium 2000 mg/ Sodium Chloride 100 ml @ 200 mls/hr Q24H IV 11/13/17 16:00 11/14/17 17:56 Lines Vascath R groin Past Medical History ESRD DM CAD HF. HTN Enlarged liver, and ascites Past Surgical History Pacemaker CABGx4 with mitral valvuloplasty in february 2005 Right fifth toe amputation Right shoulder rotator cuff repair Has had repeated paracentesis to drain his ascites Allergies: Coded Allergies: adhesive (Unverified Adverse Reaction, Severe, SKIN BREAKDOWN/ULCERS, ) Uncoded Allergies: MSG (Allergy, Intermediate, bowel problems, 08/02/17) Objective . Vital Signs Date Time Temp Pulse Resp B/P (MAP) Pulse Ox O2 Delivery O2 Flow Rate FiO2 11/15/17 08:00 83 11/15/17 08:00 97.6 83 16 104/63 (77) 91 11/14/17 23:28 98.3 77 18 109/53 (71) 97 11/14/17 20:01 98.2 76 18 114/56 (75) 97 11/14/17 20:00 84 11/14/17 19:00 97 Nasal Cannula 2.00 11/14/17 16:10 97.6 80 19 130/58 (82) 95 11/14/17 16:00 81 11/14/17 13:46 90 Nasal Cannula 2.00 . Laboratory Tests Test 11/14/17 20:43 Blood Urea Nitrogen 62 MG/DL Creatinine 8.32 MG/DL Random Glucose 126 MG/DL Albumin 2.1 GM/DL Calcium Level 8.3 MG/DL Phosphorus Level 5.2 MG/DL Magnesium Level 2.3 MG/DL Sodium Level 136 MEQ/L Potassium Level 5.1 MEQ/L Chloride Level 102 MEQ/L Carbon Dioxide Level 22.0 MEQ/L Anion Gap 12 MEQ/L Estimat Glomerular Filtration Rate 7 ML/MIN Microbiology Date/Time Source Procedure Growth Status 11/13/17 16:11 Blood Peripheral Aerobic Blood Culture - Preliminary NO GROWTH IN 2 DAYS Resulted 11/13/17 16:11 Blood Peripheral Anaerobic Blood Culture - Preliminary NO GROWTH IN 2 DAYS Resulted Imaging Lower Extremity Ultrasound 11/13/17 0000 Signed Impressions: Service Date/Time: Monday, November 13, 2017 07:52 - CONCLUSION: No DVT seen in either leg. Jewel Kaiser MD Hand X-Ray 11/13/17 0000 Signed Impressions: Service Date/Time: Monday, November 13, 2017 10:18 - CONCLUSION: Osteoporosis. Extensive arterial calcifications. 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 No definite evidence of bony destruction or osteomyelitis Jared Upton MD Physical Exam GENERAL: awake and alert, not in respiratory distress. SKIN: Cool and dry. Has scattered ecchymoses and purpuric lesions likely from venipuncture. HEAD: Atraumatic. Normocephalic. No temporal wasting, or tenderness. EYES: Paxton conjunctiva. No petechia or hemorrhage. Pupils equal, round and reactive to light. Extraocular movements full and intact. No scleral icterus. No injection or drainage. EARS, NOSE AND THROAT: Nose without bleeding or purulent nasal discharge. No sinus tenderness. Mucous membranes pink and moist. No oral lesions noted. NECK: Trachea midline, supple and not tender CARDIOVASCULAR: Regular rate and rhythm. Has systolic murmur over L precordium and base of the heart RESPIRATORY: Clear to auscultation. No rales, wheezing or rhonchi. Decreased at both bases ABDOMEN: Distended and protuberant, non-tender, bowel sounds present and hypoactive. No guarding. No rebound. Liver edge palpable on R side of abdomen, not tender. EXTREMITIES: No clubbing, cyanosis. Has edema of both feet, well healed amputation R 5th toe. TAHIR has dry gangrene of LMF. He also has multiple dry ulcers in his fingers both hands with black eschar, no evidence of infection. LUE no bruit. No redness noted. No calf tenderness. NEUROLOGICAL: Awake and alert. Cranial nerves grossly intact. Motor grossly within normal limits. PSYCHIATRIC: Normal affect, calm and cooperative. LINE: No evidence of infection Previous permacath site RIJ base, with dry and intact dressings R groin vascath in place, with dry dressing Assessment & Plan Remarks IMPRESSION Enterobacter bacteremia, BC 11/05 (+), ?source - permacath C/S negative (?due to previous Abx) - concern with infected thrombus LUE AVF - ?other endovascular focus Thrombosis DRIL LUE AVF ESRD on HD MWF Ascites, ?primary liver problem or other etiology LMF dry gangrene RECOMMENDATION Repeat BC at new HD cath - spoke with HD RN IV Rocephin to cover Enterobacter Vascular evaluation in process Follow new C/S Loraine Martinez MD Nov 15, 2017 12:15
--- NOTE | 2017-11-15 14:29 | HHI.PR ---
Subjective Remarks Patient seen this afternoon after) procedure. He reports pain is controlled. Denies any chest pain or shortness of breath. He denies having an egg allergy. Patient reports loose bowel movements which have been chronic. He reports previous diagnosis of C. difficile. He previously is thought that he had an egg allergy, however sternotomy be C. difficile. Also, he would like his egg allergy discontinued so that he can have meatloaf. Objective Vital Signs Date Time Temp Pulse Resp B/P (MAP) Pulse Ox O2 Delivery O2 Flow Rate FiO2 11/15/17 12:39 93 2.00 11/15/17 08:00 83 11/15/17 08:00 97.6 83 16 104/63 (77) 91 11/15/17 08:00 Room Air 11/14/17 23:28 98.3 77 18 109/53 (71) 97 11/14/17 20:01 98.2 76 18 114/56 (75) 97 11/14/17 20:00 84 11/14/17 19:00 97 Nasal Cannula 2.00 11/14/17 16:10 97.6 80 19 130/58 (82) 95 11/14/17 16:00 81 I/O 11/14/17 11/14/17 11/14/17 11/15/17 11/15/17 11/15/17 07:00 15:00 23:00 07:00 15:00 23:00 Intake Total 0 ml 700 ml 0 ml Output Total 0 ml 0 ml Balance 0 ml 700 ml 0 ml Intake Oral 0 ml 600 ml 0 ml IV Total 100 ml Output Urine Total 0 ml 0 ml # Voids 0 # Bowel Movements 0 1 0 Result Diagram: 11/13/17 0650 11/14/172042 Objective Remarks GENERAL: in DOCU bed. Appears comfortable. no change on exam. SKIN: Warm and dry. HEAD: Normocephalic. EYES: No scleral icterus. No injection or drainage. NECK: Supple, trachea midline. No JVD. CARDIOVASCULAR: Regular rate and rhythm without murmurs, gallops, or rubs. RESPIRATORY: Breath sounds equal bilaterally. No accessory muscle use. GASTROINTESTINAL: Abdomen soft, non-tender, nondistended. MUSCULOSKELETAL: No cyanosis, or edema. patient does have dry gangrene of left third finger. No erythema proximally. BACK: Nontender without obvious deformity. No CVA tenderness. A/P Assessment and Plan 67-year-old male with a history of end-stage renal disease on hemodialysis Sunday, diabetes, CAD, CHF, hypertension was transferred from [facility] to be evaluated by vascular surgery. //AV Fistula occlusion Records from [facility] reviewed and shows occlusion to left av fistula -Consult vascular, patient known to Dr. Jansen -Cont ASA and Plavix -Pain management with Morphine IV = Discussed with hand surgery today, and we'll order occupational therapy, echocardiogram to rule out thrombus, EKG. Suspect steal syndrome. Appreciate vascular surgery assistance. Angiogram plan for as per vascular surgery. = 11/14. Plan for angiogram in the morning. Patient nothing by mouth at midnight. -11/15. Status post angiogram. Postprocedural management as per vascular surgery. //LH gangrene, left middle finger necrotic -Consult ID for recommendations -Consult Hand surgery for recommendations = Worked up as above. Appreciate technology methodology consultant assistance. //Diabetes, chronic -Accu checks with SSI = Blood sugars continue acceptable. Continue to monitor. //ESRD on Dialysis, MWF -Consult nephrology for recommendations, patient known to Dr. Pereyra -Resume home calcium acetate 667mg TID = Nephrology following. Appreciate assistance. Dialysis as per nephrology. //Chronic diarrhea. Continuing. Check C. difficile. //Hypertension, chronic -Cont coreg 3.125mg Daily, monitor vitals //Hypothyroid, chronic: Continue home medications //DVT prophylaxis: Heparin SQ Discharge Planning s/p angiogram on 11/15. hand surgery ff. Occupational therapy following. Likely discharge home when cleared by vascular surgery, hand surgery. Vivek Goldberg MD Nov 15, 2017 14:29
[2017-11-15] MEDS: ALBUMIN 25% INJ 100 ML IV PRN (15:23)
[2017-11-15] MEDS: GENTAMICIN SULFATE 20 MG/2 ML VIAL OTHER PRN (15:24)
[2017-11-15] MEDS: EPOETIN ALFA 10,000 UNITS/ML VIAL IV PUSH PRN (15:24)
[2017-11-15] MEDS: cefTRIAXone INJ 2,000 MG in SODIUM CHLORIDE 0.9% INJ 100 ML IV SCH (18:46)
[2017-11-15 20:30] VITALS: PULSE 83
[2017-11-15 22:20] VITALS: BP 96/65; PULSE 79; RESP 18; TEMP 98.2; O2SAT 92
[2017-11-15 23:50] VITALS: BP 91/62; PULSE 76; RESP 18; TEMP 97.9; O2SAT 91
[2017-11-16] VITALS (10 sets, daily range): BP systolic 103–117; BP diastolic 56–63; PULSE 59–96; RESP 18–19; TEMP 97.6–98.7; O2SAT 94–99
[2017-11-16] MEDS: LEVOTHYROXINE SODIUM 125 MCG TAB PO SCH (06:09)
[2017-11-16] MEDS: HEPARIN SODIUM - SQ 10,000 UNITS/ML VIAL SQ SCH ×4 (06:11→21:24)
[2017-11-16] MEDS: INSULIN ASPART SUPPLEMENTAL SCALE SQ SCH ×4 (08:00→21:00)
[2017-11-16] MEDS: CALCIUM ACETATE 667 MG CAP PO SCH ×3 (08:23→18:01)
[2017-11-16] MEDS: CLOPIDOGREL 75 MG TAB PO SCH (08:23)
[2017-11-16] MEDS: SODIUM CHLORIDE 0.9% FLUSH 10 ML FLUSH IV FLUSH SCH ×2 (08:24→21:23)
[2017-11-16] MEDS: ASPIRIN EC 81 MG TABEC PO SCH (08:24)
[2017-11-16] MEDS: CARVEDILOL 3.125 MG TAB PO SCH ×2 (08:24→21:23)
[2017-11-16] MEDS: BACITRACIN TOP OINT 15 GM TUBE TOPICAL SCH ×2 (08:25→21:00)
--- NOTE | 2017-11-16 10:16 | HHI.NPPN ---
Subjective History of Present Illness Patient is a 67-year-old male with a history of end-stage renal disease on hemodialysis Sunday/Sunday/ Sunday, diabetes, CAD, CHF, hypertension was transferred from [facility] to be evaluated by vascular surgery. Patient states he was admitted to [facility] because he had low blood pressure readings at home. AV fistula has not been functioning or used for 6- 8 weeks and they have been using a permacath for dialysis. Permacath has been removed secondary to possible infection and vas cath has been placed. He has been treated with cefepime IV. Last dialysis was Sunday and 1.5 L removed. Patient has a necrotic left middle finger that patient states has been going on for the last 12 weeks. Additional Remarks OOB in Chair. Angiogram and dialysis yesterday. Denies any SOB, moderate edema. (Kathleen Olguin) Review of Systems Respiratory Respiratory Remarks Denies any SOB (Kathleen Olguin) Cardiovascular Cardiac: Edema Cardiac Remarks Denies any CP (Kathleen Olguin) Gastrointestinal GI Remarks Denies any abdominal pain (Kathleen Olguin) Genitourinary Remarks (Kathleen Olguin) Objective Data Data Vital Signs Date Time Temp Pulse Resp B/P (MAP) Pulse Ox O2 Delivery O2 Flow Rate FiO2 11/16/17 08:00 98.3 71 18 103/59 (74) 94 11/16/17 04:00 63 11/16/17 00:00 78 11/15/17 23:50 97.9 76 18 91/62 (72) 91 11/15/17 22:20 98.2 79 18 96/65 (75) 92 11/15/17 20:30 Nasal Cannula 2.00 11/15/17 20:30 83 11/15/17 12:39 93 2.00 (Kathleen Olguin) -: 11/13/17 0650 11/14/172042 Microbiology 11/15/17 Aerobic Blood Culture, Received Pending 11/15/17 Anaerobic Blood Culture, Received Pending 11/15/17 Aerobic Blood Culture, Received Pending 11/15/17 Anaerobic Blood Culture, Received Pending (Kathleen Olguin) Physical Exam General Appearance: Well Developed, Well Nourished, No Acute Distress, Comfortable (Kathleen Olguin) Eyes Eye Exam: Pupils Equal (Kathleen Olguin) Throat Throat Exam: Oral Mucosa [place] & Moist (Kathleen Olguni) Pulmonary Resp Exam: Clear Bilaterally, Breath Sounds Equal, No Distress (Kathleen Olguin) Cardiology CV Exam: Regular (Kathleen Olguin) Gastrointestinal/Abdomen GI Exam: Soft, Non-Tender, Non-Distended (Kathleen Olguin) Musculoskeletal MS Exam: Good Strength (Kathleen Olguin) Integumentary Skin Remarks necrotic area on tip on left hand middle finger (Kathleen Olguin) Extremeties Extremities Exam: Trace Edema (Kathleen Olguin) Neurologic Neuro Exam: Alert (Kathleen Olguin) Psychiatric Psych Exam: Appropriate Responses (Kathleen Olguin) Assessment/Plan Discussed Condition With: Spouse Assessment Summary: End Stage Renal Disease Problem List: (1) ESRD (end stage renal disease) on dialysis ICD Codes: N18.6 - End stage renal disease; Z99.2 - Dependence on renal dialysis Plan: Dialysis MWF- vas cath Perma cath removed for possible infection: ID consulted Vas cath in femoral area will need permacath when cleared per ID Initially BC negative. Repeat drawn yesterday. Continue phoslo Pitting edema noted Will need revascularization of left arm along with closure of AVF, possibly next week. HD and labs tomorrow (2) Gangrene of finger of left hand ICD Codes: I96 - Gangrene, not elsewhere classified Plan: necrotic area on left hand middle finger Hand surgery consulted (3) AV fistula occlusion ICD Codes: T82.898A - Other specified complication of vascular prosthetic devices, implants and grafts, initial encounter Plan: Will need revascularization of left arm along with closure of AVF, possibly next week. (4) Diabetes mellitus ICD Codes: E11.9 - Type 2 diabetes mellitus without complications Plan: Maintain BS between 140mg/dl to 180 mg/dl (Kathleen Olguin) Problem List: (1) ESRD (end stage renal disease) on dialysis ICD Codes: N18.6 - End stage renal disease; Z99.2 - Dependence on renal dialysis Plan: Dialysis MWF- vas cath Perma cath removed for possible infection: ID consulted Vas cath in femoral area will need permacath when cleared per ID Initially BC negative. Repeat drawn yesterday. Continue phoslo Pitting edema noted Will need revascularization of left arm along with closure of AVF, possibly next week. HD and labs tomorrow. Patient seen and examined, agree with above. HD tomorrow and from next week ,MWF. To get PermCath, cleared by ID. (2) Gangrene of finger of left hand ICD Codes: I96 - Gangrene, not elsewhere classified Plan: necrotic area on left hand middle finger Hand surgery consulted (3) AV fistula occlusion ICD Codes: T82.898A - Other specified complication of vascular prosthetic devices, implants and grafts, initial encounter Plan: Will need revascularization of left arm along with closure of AVF, possibly next week. (4) Diabetes mellitus ICD Codes: E11.9 - Type 2 diabetes mellitus without complications Plan: Maintain BS between 140mg/dl to 180 mg/dl (Kim Santos MD) Kathleen Olguin Nov 16, 2017 10:16 Kim Santos MD Nov 16, 2017 15:56
--- NOTE | 2017-11-16 11:35 | HHI.IDPN ---
Subjective Subjective Remarks Patient is a 67-year-old male, has been at [facility] for the last 15 days, transferred to [facility] for vascular evaluation. Patient has known end-stage renal disease and gets hemodialysis every Sunday and Sunday. He had a left upper extremity AV fistula, and it had some problem, so he underwent left upper extremity access revision, left upper extremity distal revascularization and interval ligation, last August 07, 2017. He was discharged, and apparently the fistula was working okay, and during that admission also he had that left middle finger dry gangrene which was felt to be ischemic in nature due to steal syndrome. As an outpatient, his fistula apparently stopped working, so he had a permacath placed in his right IJ. Patient stated that he's had problem on and off with low blood pressure for the last 4 months. The hypotension were getting worse and he ended up getting admitted at [facility] where he stayed for at least 15 days. During that admission, he had some positive blood culture done on November 05 that grew Enterobacter cloaca. Blood culture from November 07 were negative. His permacath was removed on November 07 and the culture of that was negative. Patient was apparently getting IV cefepime, and there was an infectious disease specialist monitoring him for his infection. Patient stated that he's had some reaction to the cefepime and he describes it as burning sensation. Patient is currently afebrile. There was evaluation of his AV fistula which shows thrombosis of his DRIL. He has now been transferred to [facility] for vascular evaluation. Infectious disease consultation has been requested to evaluate for sepsis. Notes reviewed Temps ok Had angiogram yesterday - DRIL occluded, and has L SC stenosis Fup BC negative so far Had some diarrhea - C diff has been ordered Tolerating Rocephin Antibiotics Current Medications Rocephin Medications (Trade) Dose Ordered Sig/Renny Route Start Time Stop Time Status Last Admin (NS Flush) 2 ml UNSCH PRN IV FLUSH 11/12/17 20:00 (NS Flush) 2 ml BID IV FLUSH 11/12/17 21:00 11/15/17 09:26 (Tylenol) 650 mg Q4H PRN PO 11/12/17 20:00 (Zofran Inj) 4 mg Q6H PRN IVP 11/12/17 20:00 (Narcan Inj) 0.4 mg UNSCH PRN IV PUSH 11/12/17 20:00 (Milk Of Magnesia Liq) 30 ml Q12H PRN PO 11/12/17 20:00 (Senokot) 17.2 mg Q12H PRN PO 11/12/17 20:00 (Dulcolax Supp) 10 mg DAILY PRN RECTAL 11/12/17 20:00 (Lactulose Liq) 30 ml DAILY PRN PO 11/12/17 20:00 (Morphine Inj) 2 mg Q3H PRN IV PUSH 11/12/17 23:30 (Morphine Inj) 4 mg Q3H PRN IV PUSH 11/12/17 23:30 (Heparin Inj) 5,000 units Q8HR SQ 11/13/17 06:00 11/15/17 06:00 (Synthroid) 125 mcg DAILY@0600 PO 11/13/17 06:00 11/15/17 06:56 (D50w (Vial) Inj) 50 ml UNSCH PRN IV PUSH 11/12/17 23:30 (Glucagon Inj) 1 mg UNSCH PRN OTHER 11/12/17 23:30 (NovoLOG SUPPLEMENTAL SCALE) 1 ACHS SLIDING SCALE SQ 11/13/17 08:00 11/14/17 17:55 (Phoslo) 667 mg TID PO 11/13/17 09:00 11/14/17 17:56 (Coreg) 3.125 mg DAILY PO 11/13/17 09:00 11/15/17 09:24 (Ecotrin Ec) 162 mg DAILY PO 11/13/17 09:00 (Plavix) 75 mg DAILY PO 11/13/17 09:00 (Baciguent Oint) 1 applic Q12HR TOPICAL 11/13/17 21:00 11/15/17 09:25 Sodium Chloride 1,000 ml @ 0 mls/hr Q0M PRN OTHER 11/13/17 14:09 (Heparin Inj) 8,000 units UNSCH PRN IV FLUSH 11/13/17 14:15 Sodium Chloride 1,000 ml @ 200 mls/hr Q5H PRN IV 11/13/17 14:09 Sodium Chloride 1,000 ml @ 0 mls/hr Q0M PRN OTHER 11/13/17 14:09 (Mannitol Inj) 12.5 gm UNSCH PRN IV 11/13/17 14:15 Albumin Human 100 ml @ 60 mls/hr UNSCH PRN IV 11/13/17 14:15 (NS Flush) 5 ml UNSCH PRN IV FLUSH 11/13/17 14:15 (Heparin Inj) UNSCH PRN .XX 11/13/17 14:15 (Gentamicin Inj) 20 mg UNSCH PRN OTHER 11/13/17 14:15 (Zofran Inj) 4 mg UNSCH PRN IV PUSH 11/13/17 14:15 (Tylenol) 650 mg UNSCH PRN PO 11/13/17 14:15 11/13/17 15:15 (Benadryl) 25 mg UNSCH PRN PO 11/13/17 14:15 (Nitrostat Sl) 0.4 mg UNSCH PRN SL 11/13/17 14:15 (Catapres) 0.1 mg UNSCH PRN PO 11/13/17 14:15 (Epogen Inj) 4,000 units UNSCH PRN IV PUSH 11/13/17 14:15 (Gelfoam 12 Mm/7 Mm Top) 1 foam UNSCH PRN TOP 11/13/17 14:15 Ceftriaxone Sodium 2000 mg/ Sodium Chloride 100 ml @ 200 mls/hr Q24H IV 11/13/17 16:00 11/14/17 17:56 Lines Vascath R groin Past Medical History ESRD DM CAD HF. HTN Enlarged liver, and ascites Past Surgical History Pacemaker CABGx4 with mitral valvuloplasty in february 2005 Right fifth toe amputation Right shoulder rotator cuff repair Has had repeated paracentesis to drain his ascites Allergies: Coded Allergies: adhesive (Unverified Adverse Reaction, Severe, SKIN BREAKDOWN/ULCERS, ) Uncoded Allergies: MSG (Allergy, Intermediate, bowel problems, 08/02/17) Objective . Vital Signs Date Time Temp Pulse Resp B/P (MAP) Pulse Ox O2 Delivery O2 Flow Rate FiO2 11/16/17 08:00 98.3 71 18 103/59 (74) 94 11/16/17 07:59 96 11/16/17 04:00 63 11/16/17 00:00 78 11/15/17 23:50 97.9 76 18 91/62 (72) 91 11/15/17 22:20 98.2 79 18 96/65 (75) 92 11/15/17 20:30 Nasal Cannula 2.00 11/15/17 20:30 83 11/15/17 12:39 93 2.00 . Laboratory Tests Test 11/14/17 20:43 Blood Urea Nitrogen 62 MG/DL Creatinine 8.32 MG/DL Random Glucose 126 MG/DL Albumin 2.1 GM/DL Calcium Level 8.3 MG/DL Phosphorus Level 5.2 MG/DL Magnesium Level 2.3 MG/DL Sodium Level 136 MEQ/L Potassium Level 5.1 MEQ/L Chloride Level 102 MEQ/L Carbon Dioxide Level 22.0 MEQ/L Anion Gap 12 MEQ/L Estimat Glomerular Filtration Rate 7 ML/MIN Microbiology Date/Time Source Procedure Growth Status 11/15/17 14:30 Blood Other Aerobic Blood Culture - Preliminary NO GROWTH IN 1 DAY Resulted 11/15/17 14:30 Blood Other Anaerobic Blood Culture - Preliminary NO GROWTH IN 1 DAY Resulted 11/15/17 14:30 Blood Other Aerobic Blood Culture - Preliminary NO GROWTH IN 1 DAY Resulted 11/15/17 14:30 Blood Other Anaerobic Blood Culture - Preliminary NO GROWTH IN 1 DAY Resulted 11/13/17 16:11 Blood Peripheral Aerobic Blood Culture - Preliminary NO GROWTH IN 3 DAYS Resulted 11/13/17 16:11 Blood Peripheral Anaerobic Blood Culture - Preliminary NO GROWTH IN 3 DAYS Resulted Imaging Lower Extremity Ultrasound 11/13/17 0000 Signed Impressions: Service Date/Time: Monday, November 13, 2017 07:52 - CONCLUSION: No DVT seen in either leg. Jewel Kaiser MD Hand X-Ray 11/13/17 0000 Signed Impressions: Service Date/Time: Monday, November 13, 2017 10:18 - CONCLUSION: Osteoporosis. Extensive arterial calcifications. 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 No definite evidence of bony destruction or osteomyelitis Jared Upton MD Physical Exam GENERAL: awake and alert, not in respiratory distress. SKIN: Cool and dry. HEAD: Atraumatic. Normocephalic. No temporal wasting, or tenderness. EYES: [place] conjunctiva. No petechia or hemorrhage. Pupils equal, round and reactive to light. Extraocular movements full and intact. No scleral icterus. No injection or drainage. EARS, NOSE AND THROAT: Nose without bleeding or purulent nasal discharge. No sinus tenderness. Mucous membranes pink and moist. No oral lesions noted. NECK: Trachea midline, supple and not tender CARDIOVASCULAR: Regular rate and rhythm. Has systolic murmur over L precordium and base of the heart RESPIRATORY: Clear to auscultation. No rales, wheezing or rhonchi. Decreased at both bases ABDOMEN: Distended and protuberant, non-tender, bowel sounds present and hypoactive. No guarding. No rebound. Liver edge palpable on R side of abdomen, not tender. EXTREMITIES: No clubbing, cyanosis. Has edema of both feet, well healed amputation R 5th toe. Stable lesions in both hands. LUE AVF no bruit/thrill. No redness noted. No calf tenderness. NEUROLOGICAL: Awake and alert. Cranial nerves grossly intact. Motor grossly within normal limits. PSYCHIATRIC: Normal affect, calm and cooperative. LINE: No evidence of infection Previous permacath site RIJ base, with dry and intact dressings R groin vascath in place, with dry dressing Assessment & Plan Remarks IMPRESSION Enterobacter bacteremia, BC 11/05 (+), ?source - permacath C/S negative (?due to previous Abx) - concern with infected thrombus LUE AVF - ?other endovascular focus Thrombosis DRIL LUE AVF ESRD on HD MWF Ascites, ?primary liver problem or other etiology LMF dry gangrene Diarrhea - R/O C diff RECOMMENDATION Follow repeat BC IV Rocephin to cover Enterobacter Vascular evaluation in process Follow new C/S If no other (+) BC, will likely be able to use po Cipro 750 daily and Rx x 4-6 weeks for possible infected clot Follow C diff toxin results Loraine Martinez MD Nov 16, 2017 11:35
--- NOTE | 2017-11-16 13:16 | HHI.PR ---
Subjective Remarks Patient says he is feeling all right. Denies any chest pain or shortness of breath Did have a loose bowel movements this morning, however does not sent for C. difficile testing. Objective Vital Signs Date Time Temp Pulse Resp B/P (MAP) Pulse Ox O2 Delivery O2 Flow Rate FiO2 11/16/17 12:00 97.8 77 18 110/60 (77) 94 11/16/17 08:05 Room Air 11/16/17 08:00 98.3 71 18 103/59 (74) 94 11/16/17 07:59 96 11/16/17 04:00 63 11/16/17 00:00 78 11/15/17 23:50 97.9 76 18 91/62 (72) 91 11/15/17 22:20 98.2 79 18 96/65 (75) 92 11/15/17 20:30 Nasal Cannula 2.00 11/15/17 20:30 83 I/O 11/15/17 11/15/17 11/15/17 11/16/17 11/16/17 11/16/17 06:59 14:59 22:59 06:59 14:59 22:59 Intake Total 0 ml 100 ml 0 ml Output Total 0 ml 0 ml Balance 0 ml 100 ml 0 ml Intake Oral 0 ml 0 ml IV Total 100 ml Output Urine Total 0 ml 0 ml # Bowel Movements 0 1 Result Diagram: 11/13/17 0650 11/14/172042 Objective Remarks GENERAL: sitting up in chair. Appears comfortable. no change on exam. SKIN: Warm and dry. HEAD: Normocephalic. EYES: No scleral icterus. No injection or drainage. NECK: Supple, trachea midline. No JVD. CARDIOVASCULAR: Regular rate and rhythm without murmurs, gallops, or rubs. RESPIRATORY: Breath sounds equal bilaterally. No accessory muscle use. GASTROINTESTINAL: Abdomen soft, non-tender, nondistended. MUSCULOSKELETAL: No cyanosis, or edema. patient does have dry gangrene of left third finger. No erythema proximally. BACK: Nontender without obvious deformity. No CVA tenderness. A/P Assessment and Plan 67-year-old male with a history of end-stage renal disease on hemodialysis Sunday, diabetes, CAD, CHF, hypertension was transferred from [facility] to be evaluated by vascular surgery. //AV Fistula occlusion Records from [facility] reviewed and shows occlusion to left av fistula -Consult vascular, patient known to Dr. Jansen -Cont ASA and Plavix -Pain management with Morphine IV = Discussed with hand surgery today, and we'll order occupational therapy, echocardiogram to rule out thrombus, EKG. Suspect steal syndrome. Appreciate vascular surgery assistance. Angiogram plan for as per vascular surgery. = 11/14. Plan for angiogram in the morning. Patient nothing by mouth at midnight. -11/15. Status post angiogram. Postprocedural management as per vascular surgery. = 11/16. Discussed with vascular surgery. Plan for left upper extremity thrombectomy of suspected infected fistula thrombus. //Bacteremia. Positive blood cultures 11/05 at outside hospital with Enterobacter. = 11/16 Discussed with infectious disease. at time of dc, can discharge on Cipro 750 mg by mouth once daily for 28 days. =bcx from admission negative 3 days. //LH gangrene, left middle finger necrotic -Consult ID for recommendations -Consult Hand surgery for recommendations = Worked up as above. Appreciate senior solutions consultant assistance. //Diabetes, chronic -Accu checks with SSI = Blood sugars continue acceptable. Continue to monitor. //ESRD on Dialysis, MWF -Consult nephrology for recommendations, patient known to Dr. Pereyra -Resume home calcium acetate 667mg TID = Nephrology following. Appreciate assistance. Dialysis as per nephrology. //Chronic diarrhea. Continuing. Check C. difficile. //Hypertension, chronic -Cont coreg 3.125mg Daily, monitor vitals //Hypothyroid, chronic: Continue home medications //DVT prophylaxis: Heparin SQ Discharge Planning s/p angiogram on 11/15. hand surgery ff. Prescription for Cipro. Discharge back to SNF. Return on Sunday for vascular surgery. Vivek Goldberg MD Nov 16, 2017 13:16
[2017-11-16] MEDS ORDERED: CIPR250T52 PO (13:21)
[2017-11-16] MEDS ORDERED: PLAV75TA29 PO (13:21)
[2017-11-16] MEDS ORDERED: NOVOLOGSS SQ (13:21)
[2017-11-16] MEDS ORDERED: ECASA81 PO (13:21)
--- NOTE | 2017-11-16 13:45 | MP ---
cc: ISSA JANSEN MD DATE OF SURGERY 11/16/2017 PREOPERATIVE DIAGNOSIS Ischemic bilateral upper extremities. POSTOPERATIVE DIAGNOSIS Ischemic bilateral upper extremities. PLANNED PROCEDURE Thoracic aortogram with bilateral upper extremity angiogram. ATTENDING SURGEON Issa Jansen MD ANESTHESIA Local with sedation INDICATION Mr. Hernandez is a 68-year gentleman with end stage renal disease and a left upper extremity access with a previous drill bypass to treat access related hand ischemia. He now has represents after having a bout of catheter related sepsis and an acute myocardial infarction with worsening bilateral upper extremity wounds with the left being worse than the right. He was taken to the operating room for angiographic evaluation and potential treatment. DESCRIPTION OF PROCEDURE Informed consent was obtained from the patient. He was taken to the operating room, placed supine on the operating room table and an appropriate time-out was taken to ensure the patient's identity, operative site and planned procedure. Antibiotics were not necessary as this a clean procedure without any planned implantation of any foreign objects. Everyone in the room agreed with the time-out and we proceeded. His groins were prepped and draped and a 21 gauge micropuncture needle was used to access the left common femoral artery after infiltration of local anesthetic. This was exchanged using Seldinger technique for a micropuncture sheath through which a 0.035 Glidewire was introduced and the micropuncture sheath was exchanged for a 5-[place] sheath. The Glidewire was advanced into the ascending aorta and a pigtail catheter was advanced over this and a thoracic aortogram was obtained. The Glidewire was reintroduced and the pigtail was exchanged for a vertebral catheter and the vertebral catheter and Glidewire were used to navigate into the subclavian, axillary, and proximal brachial arteries and a left upper extremity arteriogram obtained. The wire and catheter removed back to the ascending aorta and the catheter was changed for a pigtail catheter and the right upper exam angiograms was obtained with the catheter in the aorta. The wire, catheter and sheath were removed and pressure held for hemostasis. There were no complications. I was present and scrubbed for the entire procedure. INTERPRETATION The patient has a patent normal three-vessel aortic arch and patent left subclavian, axillary, brachial arteries. The distal brachial artery is occluded. There is a fistula that is very small in caliber and it is noted to fill. The brachial artery and the antecubital is occluded and then collaterals reconstitute the distal brachial artery. On the right-hand side, the innominate is patent. The right subclavian, axillary, and brachial arteries were all widely patent. MD RHONDA Dueñas/[place] /7:37 PM /1:25 PM
[2017-11-16] MEDS: cefTRIAXone INJ 2,000 MG in SODIUM CHLORIDE 0.9% INJ 100 ML IV SCH (17:58)
[2017-11-16 20:41] LABS: BICARBONATE 25.1 MEQ/L (21.0-32.0); CALCIUM 8.1 MG/DL (8.5-10.1); CREATININE 7.94 MG/DL (0.60-1.30)
[2017-11-17] VITALS (7 sets, daily range): BP systolic 95–115; BP diastolic 42–59; PULSE 60–84; RESP 18–19; TEMP 97.2–98.1; O2SAT 94–99
[2017-11-17] MEDS: LEVOTHYROXINE SODIUM 125 MCG TAB PO SCH (06:24)
[2017-11-17] MEDS: HEPARIN SODIUM - SQ 10,000 UNITS/ML VIAL SQ SCH ×5 (06:24→21:43)
[2017-11-17] MEDS: INSULIN ASPART SUPPLEMENTAL SCALE SQ SCH ×4 (08:00→21:00)
[2017-11-17] MEDS: CARVEDILOL 3.125 MG TAB PO SCH ×3 (09:00→21:38)
[2017-11-17] MEDS: CALCIUM ACETATE 667 MG CAP PO SCH ×3 (09:00→17:48)
--- NOTE | 2017-11-17 09:32 | PD.VS.PN ---
Subjective Subjective/Hospital Course Pt with ESRD and B UE hand ischemia, L being access related after failed DRIL. Seen in HD today - rufina HD via R groin catheter Hands stable. Objective Vitals/I&O Date Time Temp Pulse Resp B/P (MAP) Pulse Ox O2 Delivery O2 Flow Rate FiO2 11/17/17 08:00 98.1 78 18 109/59 (76) 95 11/17/17 04:00 97.7 84 19 115/56 (75) 99 11/17/17 04:00 60 11/17/17 00:00 97.2 70 19 108/55 (72) 99 11/17/17 00:00 60 11/16/17 20:45 Nasal Cannula 2.00 11/16/17 20:00 97.6 60 19 117/56 (76) 99 11/16/17 20:00 79 11/16/17 19:35 99 Nasal Cannula 2.00 11/16/17 17:23 2.00 11/16/17 16:02 73 11/16/17 16:00 97.6 61 18 116/58 (77) 96 11/16/17 12:00 97.8 77 18 110/60 (77) 94 11/16/17 12:00 59 11/17/17 11/17/17 11/17/17 07:00 15:00 23:00 Intake Total 240 ml Balance 240 ml Physical Exam L UE incisions well healed. no palpable pulses L UE Laboratory Laboratory Tests Test 11/16/17 19:28 11/16/17 23:30 Blood Urea Nitrogen 53 Creatinine 7.94 Random Glucose 121 Calcium Level 8.1 Sodium Level 137 Potassium Level 4.9 Chloride Level 101 Carbon Dioxide Level 25.1 Anion Gap 11 Estimat Glomerular Filtration Rate 7 Stool C. difficile Toxin (PCR) NEGATIVE Stl C. difficile Toxin Epiderm 027 PRESUMPTIVE NEGATIVE Date/Time Source Procedure Growth Status 11/15/17 14:30 Blood Other Aerobic Blood Culture - Preliminary NO GROWTH IN 1 DAY Resulted 11/15/17 14:30 Blood Other Anaerobic Blood Culture - Preliminary NO GROWTH IN 1 DAY Resulted Assessment and Plan Plan B UE ischemia, 1. Ok to tunneled HD catheter in R or L IJ 2. Plan for L UE bypass on Sunday, likely brachial-brachial. Will ligate AVF, which is failing. 3. Discussed with plastics/hand surgery - potential L digit treatment later in the week. 4. Pt aware and agrees with plan. Issa Jansen MD FACS [employer] explosive ordnance disposal specialist [facility] - Heart and Vascular Surgery at [facility] [address] [phone] Issa Jansen MD Nov 17, 2017 09:32
--- NOTE | 2017-11-17 11:36 | HHI.NPPN ---
Subjective History of Present Illness Patient is a 67-year-old male with a history of end-stage renal disease on hemodialysis Sunday/Sunday/ Sunday, diabetes, CAD, CHF, hypertension was transferred from [facility] to be evaluated by vascular surgery. Patient states he was admitted to [facility] because he had low blood pressure readings at home. AV fistula has not been functioning or used for 6- 8 weeks and they have been using a permacath for dialysis. Permacath has been removed secondary to possible infection and vas cath has been placed. He has been treated with cefepime IV. Last dialysis was Sunday and 1.5 L removed. Patient has a necrotic left middle finger that patient states has been going on for the last 12 weeks. Additional Remarks Denies any SOB, moderate edema. Review of Systems Respiratory Respiratory Remarks Denies any SOB Cardiovascular Cardiac: Edema Cardiac Remarks Denies any CP Gastrointestinal GI Remarks Denies any abdominal pain Genitourinary Remarks Objective Data Data Vital Signs Date Time Temp Pulse Resp B/P (MAP) Pulse Ox O2 Delivery O2 Flow Rate FiO2 11/17/17 10:05 95 Nasal Cannula 2.00 11/17/17 08:00 98.1 78 18 109/59 (76) 95 11/17/17 08:00 75 11/17/17 04:00 97.7 84 19 115/56 (75) 99 11/17/17 04:00 60 11/17/17 00:00 97.2 70 19 108/55 (72) 99 11/17/17 00:00 60 11/16/17 20:45 Nasal Cannula 2.00 11/16/17 20:00 97.6 60 19 117/56 (76) 99 11/16/17 20:00 79 11/16/17 19:35 99 Nasal Cannula 2.00 11/16/17 17:23 2.00 11/16/17 16:02 73 11/16/17 16:00 97.6 61 18 116/58 (77) 96 11/16/17 12:00 97.8 77 18 110/60 (77) 94 11/16/17 12:00 59 -: 11/13/17 0650 11/16/171927 Physical Exam General Appearance: Well Developed, Well Nourished, No Acute Distress, Comfortable Eyes Eye Exam: Pupils Equal Throat Throat Exam: Oral Mucosa [place] & Moist Pulmonary Resp Exam: Clear Bilaterally, Breath Sounds Equal, No Distress Cardiology CV Exam: Regular Gastrointestinal/Abdomen GI Exam: Soft, Non-Tender, Non-Distended Musculoskeletal MS Exam: Good Strength Extremeties Extremities Exam: Trace Edema Neurologic Neuro Exam: Alert Psychiatric Psych Exam: Appropriate Responses Assessment/Plan Discussed Condition With: Spouse Assessment Summary: End Stage Renal Disease Problem List: (1) ESRD (end stage renal disease) on dialysis ICD Codes: N18.6 - End stage renal disease; Z99.2 - Dependence on renal dialysis Plan: Dialysis MWF- vas cath Perma cath removed for possible infection: ID consulted Vas cath in femoral area will need permacath when cleared per ID Initially BC negative. Repeat drawn yesterday. Continue phoslo Pitting edema noted Will need revascularization of left arm along with closure of AVF, possibly next week. patient seen at HD UF 2 L tolerating it well plan as above (2) Gangrene of finger of left hand ICD Codes: I96 - Gangrene, not elsewhere classified Plan: necrotic area on left hand middle finger Hand surgery consulted (3) AV fistula occlusion ICD Codes: T82.898A - Other specified complication of vascular prosthetic devices, implants and grafts, initial encounter Plan: Will need revascularization of left arm along with closure of AVF, possibly next week. (4) Diabetes mellitus ICD Codes: E11.9 - Type 2 diabetes mellitus without complications Plan: Maintain BS between 140mg/dl to 180 mg/dl Miach Parmar MD Nov 17, 2017 11:36
[2017-11-17] MEDS: GENTAMICIN SULFATE 20 MG/2 ML VIAL OTHER PRN (11:50)
[2017-11-17] MEDS: EPOETIN ALFA 10,000 UNITS/ML VIAL IV PUSH PRN (11:50)
[2017-11-17] MEDS: HEPARIN SODIUM - IV 10,000 UNITS/10 ML VIAL PRN (11:50)
[2017-11-17] MEDS: ALBUMIN 25% INJ 100 ML IV PRN ×2 (11:53→11:54)
[2017-11-17] MEDS: ASPIRIN EC 81 MG TABEC PO SCH (12:54)
[2017-11-17] MEDS: PANTOPRAZOLE SOD 20 MG DELAYED RELEASE TAB PO SCH (12:54)
[2017-11-17] MEDS: SODIUM CHLORIDE 0.9% FLUSH 10 ML FLUSH IV FLUSH SCH ×2 (12:55→21:38)
[2017-11-17] MEDS: BACITRACIN TOP OINT 15 GM TUBE TOPICAL SCH ×2 (12:58→21:00)
[2017-11-17] MEDS: cefTRIAXone INJ 2,000 MG in SODIUM CHLORIDE 0.9% INJ 100 ML IV SCH (15:28)
--- NOTE | 2017-11-17 17:15 | HHI.PR ---
Subjective Remarks Patient seen this morning after dialysis. He denies any changes. Reports fatigue at baseline. Continues with chronic loose bowel movements, however he is happy C. difficile negative. Objective Vital Signs Date Time Temp Pulse Resp B/P (MAP) Pulse Ox O2 Delivery O2 Flow Rate FiO2 11/17/17 16:00 97.5 65 18 99/42 (61) 94 11/17/17 12:00 97.5 72 18 108/55 (72) 94 11/17/17 10:05 95 Nasal Cannula 2.00 11/17/17 08:00 98.1 78 18 109/59 (76) 95 11/17/17 08:00 75 11/17/17 04:00 97.7 84 19 115/56 (75) 99 11/17/17 04:00 60 11/17/17 00:00 97.2 70 19 108/55 (72) 99 11/17/17 00:00 60 11/16/17 20:45 Nasal Cannula 2.00 11/16/17 20:00 97.6 60 19 117/56 (76) 99 11/16/17 20:00 79 11/16/17 19:35 99 Nasal Cannula 2.00 11/16/17 17:23 2.00 I/O 11/16/17 11/16/17 11/16/17 11/17/17 11/17/17 11/17/17 07:00 15:00 23:00 07:00 15:00 23:00 Intake Total 0 ml 480 ml 240 ml Output Total 0 ml 2000 ml Balance 0 ml 480 ml 240 ml -2000 ml Intake Oral 0 ml 480 ml 240 ml Output Urine Total 0 ml Hemodialysis 2000 ml # Voids 4 2 # Bowel Movements 1 1 1 Result Diagram: 11/13/17 0650 11/16/171927 Objective Remarks GENERAL: sitting up on edge of bed. Appears comfortable. no change on exam. SKIN: Warm and dry. HEAD: Normocephalic. EYES: No scleral icterus. No injection or drainage. NECK: Supple, trachea midline. No JVD. CARDIOVASCULAR: Regular rate and rhythm without murmurs, gallops, or rubs. RESPIRATORY: Breath sounds equal bilaterally. No accessory muscle use. GASTROINTESTINAL: Abdomen soft, non-tender, nondistended. MUSCULOSKELETAL: No cyanosis, or edema. patient does have dry gangrene of left third finger. No erythema proximally. BACK: Nontender without obvious deformity. No CVA tenderness. A/P Assessment and Plan 67-year-old male with a history of end-stage renal disease on hemodialysis Sunday, diabetes, CAD, CHF, hypertension was transferred from [facility] to be evaluated by vascular surgery. //AV Fistula occlusion Records from [facility] reviewed and shows occlusion to left av fistula -Consult vascular, patient known to Dr. Jansen -Cont ASA and Plavix -Pain management with Morphine IV = Discussed with hand surgery today, and we'll order occupational therapy, echocardiogram to rule out thrombus, EKG. Suspect steal syndrome. Appreciate vascular surgery assistance. Angiogram plan for as per vascular surgery. = 11/14. Plan for angiogram in the morning. Patient nothing by mouth at midnight. -11/15. Status post angiogram. Postprocedural management as per vascular surgery. = 2/2. Discussed with vascular surgery. Plan for left upper extremity thrombectomy of suspected infected fistula thrombus. = 2/3. Plan for right IJ permacath as per nephrology on Sunday. Plan for left arm AV fistula thrombectomy surgery on Sunday. //Bacteremia. Positive blood cultures 11/05 at outside hospital with Enterobacter. = 2/2 Discussed with infectious disease. at time of dc, can discharge on Cipro 750 mg by mouth once daily for 28 days. =bcx from admission negative 4 days. //LH gangrene, left middle finger necrotic -Consult ID for recommendations -Consult Hand surgery for recommendations = Worked up as above. Appreciate senior sustainability consultant assistance. //Diabetes, chronic -Accu checks with SSI = Blood sugars continue acceptable. Continue to monitor. //ESRD on Dialysis, MWF -Consult nephrology for recommendations, patient known to Dr. Pereyra -Resume home calcium acetate 667mg TID = Nephrology following. Appreciate assistance. Dialysis as per nephrology. = 2/3. Plan for right IJ permacath as per nephrology on Sunday. Cleared by ID. //Chronic loose bowel movements. Likely IBS. Negative C. difficile. //Hypertension, chronic -Cont coreg 3.125mg Daily, monitor vitals //Hypothyroid, chronic: Continue home medications //DVT prophylaxis: Heparin SQ Discharge Planning Plan for right IJ permacath on Sunday 11/19. Plan for left upper extremity fistula thrombectomy by vascular surgery on Sunday. -Rehabilitation/SNF at discharge. -ID has cleared for Cipro 750 mg daily for 28 days at time of discharge. Vivek Goldberg MD Nov 17, 2017 17:14
[2017-11-18] VITALS (12 sets, daily range): BP systolic 89–106; BP diastolic 50–58; PULSE 59–66; RESP 17–20; TEMP 97.4–98.2; O2SAT 95–100
[2017-11-18] MEDS: HEPARIN SODIUM - SQ 10,000 UNITS/ML VIAL SQ SCH ×4 (05:31→21:46)
[2017-11-18] MEDS: LEVOTHYROXINE SODIUM 125 MCG TAB PO SCH (05:32)
[2017-11-18] MEDS: INSULIN ASPART SUPPLEMENTAL SCALE SQ SCH ×4 (08:00→21:00)
[2017-11-18] MEDS: SODIUM CHLORIDE 0.9% FLUSH 10 ML FLUSH IV FLUSH SCH ×2 (08:30→21:45)
[2017-11-18] MEDS: CARVEDILOL 3.125 MG TAB PO SCH ×2 (08:31→21:00)
[2017-11-18] MEDS: PANTOPRAZOLE SOD 20 MG DELAYED RELEASE TAB PO SCH (08:31)
[2017-11-18] MEDS: ASPIRIN EC 81 MG TABEC PO SCH (08:31)
[2017-11-18] MEDS: CALCIUM ACETATE 667 MG CAP PO SCH ×3 (08:31→17:03)
[2017-11-18] MEDS: BACITRACIN TOP OINT 15 GM TUBE TOPICAL SCH ×2 (08:32→21:00)
[2017-11-18] MEDS: ACETAMINOPHEN 325 MG TAB PO PRN (08:40)
--- NOTE | 2017-11-18 10:11 | HHI.PR ---
Subjective Remarks Patient says he is feeling all right this morning. Denies any chest pain or shortness breath. Denies any nausea or vomiting. no events per nursing. Objective Vital Signs Date Time Temp Pulse Resp B/P (MAP) Pulse Ox O2 Delivery O2 Flow Rate FiO2 11/18/17 09:17 Nasal Cannula 2.00 11/18/17 08:00 65 11/18/17 04:46 97.4 66 18 95/53 (67) 95 11/18/17 04:00 65 11/18/17 00:15 97.7 62 18 90/50 (63) 95 11/18/17 00:00 Nasal Cannula 2.00 11/18/17 00:00 59 11/17/17 20:00 97.3 65 18 95/46 (62) 96 11/17/17 20:00 61 11/17/17 20:00 Nasal Cannula 2.00 11/17/17 18:07 Nasal Cannula 2.00 11/17/17 16:00 97.5 65 18 99/42 (61) 94 11/17/17 13:00 Nasal Cannula 2.00 11/17/17 12:00 97.5 72 18 108/55 (72) 94 11/17/17 12:00 65 I/O 11/17/17 11/17/17 11/17/17 11/18/17 11/18/17 11/18/17 07:00 15:00 23:00 07:00 15:00 23:00 Intake Total 240 ml 480 ml Output Total 2000 ml Balance 240 ml -2000 ml 480 ml Intake Oral 240 ml 480 ml Hemodialysis 2000 ml # Voids 2 2 2 # Bowel Movements 1 1 1 Result Diagram: 11/16/171927 Objective Remarks GENERAL: sitting up on edge of bed. Appears comfortable. again, no change on exam. SKIN: Warm and dry. HEAD: Normocephalic. EYES: No scleral icterus. No injection or drainage. NECK: Supple, trachea midline. No JVD. CARDIOVASCULAR: Regular rate and rhythm without murmurs, gallops, or rubs. RESPIRATORY: Breath sounds equal bilaterally. No accessory muscle use. GASTROINTESTINAL: Abdomen soft, non-tender, nondistended. MUSCULOSKELETAL: No cyanosis, or edema. patient does have dry gangrene of left third finger. No erythema proximally. BACK: Nontender without obvious deformity. No CVA tenderness. A/P Assessment and Plan 67-year-old male with a history of end-stage renal disease on hemodialysis Sunday, diabetes, CAD, CHF, hypertension was transferred from [facility] to be evaluated by vascular surgery. //AV Fistula occlusion Records from [facility] reviewed and shows occlusion to left av fistula -Consult vascular, patient known to Dr. Jansen -Cont ASA and Plavix -Pain management with Morphine IV = Discussed with hand surgery today, and we'll order occupational therapy, echocardiogram to rule out thrombus, EKG. Suspect steal syndrome. Appreciate vascular surgery assistance. Angiogram plan for as per vascular surgery. = 11/14. Plan for angiogram in the morning. Patient nothing by mouth at midnight. -11/15. Status post angiogram. Postprocedural management as per vascular surgery. = 11/16. Discussed with vascular surgery. Plan for left upper extremity thrombectomy of suspected infected fistula thrombus. = 11/18 Plan for right IJ permacath as per nephrology tomorrow. Plan for left arm AV bypass, surgery on Sunday. //Bacteremia. Positive blood cultures 11/05 at outside hospital with Enterobacter. = 2 Discussed with infectious disease. at time of dc, can discharge on Cipro 750 mg by mouth once daily for 28 days. = Continue antibiotics as per infectious disease. =bcx from admission negative 4 days. //LH gangrene, left middle finger necrotic -Consult ID for recommendations -Consult Hand surgery for recommendations = Worked up as above. Appreciate labor relations consultant assistance. //Diabetes, chronic -Accu checks with SSI = Blood sugars continue acceptable. Continue to monitor. //ESRD on Dialysis, MWF -Consult nephrology for recommendations, patient known to Dr. Pereyra -Resume home calcium acetate 667mg TID = Nephrology following. Appreciate assistance. Dialysis as per nephrology. = 11/18. Plan for right IJ permacath as per nephrology tomorrow Sunday. Cleared by ID. //Chronic loose bowel movements. Likely IBS. Negative C. difficile. //Hypertension, chronic -Cont coreg 3.125mg Daily, monitor vitals = 11/18. Systolic blood pressure slightly low overnight with systolics in the 90s. Patient denying any lightheadedness or dizziness. I cleaned some overdiuresis. Continue to monitor. //Hypothyroid, chronic: Continue home medications //DVT prophylaxis: Heparin SQ Discharge Planning Plan for right IJ permacath on Sunday 11/19. Plan for left upper extremity fistula thrombectomy by vascular surgery on Sunday. -Rehabilitation/SNF at discharge. -ID has cleared for Cipro 750 mg daily for 28 days at time of discharge. Vivek Goldberg MD Nov 18, 2017 10:10
--- NOTE | 2017-11-18 11:40 | HHI.IDPN ---
Subjective Subjective Remarks Patient is a 67-year-old male, has been at [facility] for the last 15 days, transferred to [facility] for vascular evaluation. Patient has known end-stage renal disease and gets hemodialysis every Sunday and Sunday. He had a left upper extremity AV fistula, and it had some problem, so he underwent left upper extremity access revision, left upper extremity distal revascularization and interval ligation, last August 07, 2017. He was discharged, and apparently the fistula was working okay, and during that admission also he had that left middle finger dry gangrene which was felt to be ischemic in nature due to steal syndrome. As an outpatient, his fistula apparently stopped working, so he had a permacath placed in his right IJ. Patient stated that he's had problem on and off with low blood pressure for the last 4 months. The hypotension were getting worse and he ended up getting admitted at [facility] where he stayed for at least 15 days. During that admission, he had some positive blood culture done on November 05 that grew Enterobacter cloaca. Blood culture from November 07 were negative. His permacath was removed on November 07 and the culture of that was negative. Patient was apparently getting IV cefepime, and there was an infectious disease specialist monitoring him for his infection. Patient stated that he's had some reaction to the cefepime and he describes it as burning sensation. Patient is currently afebrile. There was evaluation of his AV fistula which shows thrombosis of his DRIL. He has now been transferred to [facility] for vascular evaluation. Infectious disease consultation has been requested to evaluate for sepsis. Notes reviewed Temps ok Fup BC negative so far C diff negative Stool better Plans noted For permacath placement Sunday Surgery on his AVF Sunday Tolerating Rocephin Last HD Sunday 2/3 Antibiotics Current Medications Rocephin Medications (Trade) Dose Ordered Sig/Renny Route Start Time Stop Time Status Last Admin (NS Flush) 2 ml UNSCH PRN IV FLUSH 11/12/17 20:00 (NS Flush) 2 ml BID IV FLUSH 11/12/17 21:00 11/18/17 08:30 (Tylenol) 650 mg Q4H PRN PO 11/12/17 20:00 (Zofran Inj) 4 mg Q6H PRN IVP 11/12/17 20:00 (Narcan Inj) 0.4 mg UNSCH PRN IV PUSH 11/12/17 20:00 (Milk Of Magnesia Liq) 30 ml Q12H PRN PO 11/12/17 20:00 (Senokot) 17.2 mg Q12H PRN PO 11/12/17 20:00 (Dulcolax Supp) 10 mg DAILY PRN RECTAL 11/12/17 20:00 (Lactulose Liq) 30 ml DAILY PRN PO 11/12/17 20:00 (Morphine Inj) 2 mg Q3H PRN IV PUSH 11/12/17 23:30 (Morphine Inj) 4 mg Q3H PRN IV PUSH 11/12/17 23:30 (Heparin Inj) 5,000 units Q8HR SQ 11/13/17 06:00 11/17/17 12:57 (Synthroid) 125 mcg DAILY@0600 PO 11/13/17 06:00 11/18/17 05:32 (D50w (Vial) Inj) 50 ml UNSCH PRN IV PUSH 11/12/17 23:30 (Glucagon Inj) 1 mg UNSCH PRN OTHER 11/12/17 23:30 (NovoLOG SUPPLEMENTAL SCALE) 1 ACHS SLIDING SCALE SQ 11/13/17 08:00 11/16/17 13:08 (Phoslo) 667 mg TID PO 11/13/17 09:00 11/18/17 08:31 (Ecotrin Ec) 162 mg DAILY PO 11/13/17 09:00 11/18/17 08:31 (Plavix) 75 mg DAILY PO 11/13/17 09:00 Future Hold 11/16/17 08:23 (Baciguent Oint) 1 applic Q12HR TOPICAL 11/13/17 21:00 11/18/17 08:32 Sodium Chloride 1,000 ml @ 0 mls/hr Q0M PRN OTHER 11/13/17 14:09 (Heparin Inj) 8,000 units UNSCH PRN IV FLUSH 11/13/17 14:15 11/15/17 15:23 Sodium Chloride 1,000 ml @ 200 mls/hr Q5H PRN IV 11/13/17 14:09 Sodium Chloride 1,000 ml @ 0 mls/hr Q0M PRN OTHER 11/13/17 14:09 (Mannitol Inj) 12.5 gm UNSCH PRN IV 11/13/17 14:15 11/17/17 11:53 Albumin Human 100 ml @ 60 mls/hr UNSCH PRN IV 11/13/17 14:15 11/17/17 11:54 (NS Flush) 5 ml UNSCH PRN IV FLUSH 11/13/17 14:15 (Heparin Inj) UNSCH PRN .XX 11/13/17 14:15 11/17/17 11:50 (Gentamicin Inj) 20 mg UNSCH PRN OTHER 11/13/17 14:15 11/17/17 11:50 (Zofran Inj) 4 mg UNSCH PRN IV PUSH 11/13/17 14:15 (Tylenol) 650 mg UNSCH PRN PO 11/13/17 14:15 11/18/17 08:40 (Benadryl) 25 mg UNSCH PRN PO 11/13/17 14:15 (Nitrostat Sl) 0.4 mg UNSCH PRN SL 11/13/17 14:15 (Catapres) 0.1 mg UNSCH PRN PO 11/13/17 14:15 (Epogen Inj) 4,000 units UNSCH PRN IV PUSH 11/13/17 14:15 11/17/17 11:50 (Gelfoam 12 Mm/7 Mm Top) 1 foam UNSCH PRN TOP 11/13/17 14:15 Ceftriaxone Sodium 2000 mg/ Sodium Chloride 100 ml @ 200 mls/hr Q24H IV 11/13/17 16:00 11/17/17 15:28 (Coreg) 3.125 mg BID PO 11/16/17 21:00 11/18/17 08:31 (Protonix) 20 mg DAILY PO 11/17/17 09:00 11/18/17 08:31 (Heparin Inj) 5,000 units Q12HR SQ 11/16/17 21:00 11/25/17 12:00 Future Hold 11/18/17 08:31 Lines Vascath Sourav luain Past Medical History ESRD DM CAD HF. HTN Enlarged liver, and ascites Past Surgical History Pacemaker CABGx4 with mitral valvuloplasty in february 2005 Right fifth toe amputation Right shoulder rotator cuff repair Has had repeated paracentesis to drain his ascites Allergies: Coded Allergies: adhesive (Unverified Adverse Reaction, Severe, SKIN BREAKDOWN/ULCERS, ) Uncoded Allergies: MSG (Allergy, Intermediate, bowel problems, 08/02/17) Objective . Vital Signs Date Time Temp Pulse Resp B/P (MAP) Pulse Ox O2 Delivery O2 Flow Rate FiO2 11/18/17 09:17 Nasal Cannula 2.00 11/18/17 08:20 100 Nasal Cannula 2.00 11/18/17 08:10 98.0 59 17 100/52 (68) 100 11/18/17 08:00 65 11/18/17 04:46 97.4 66 18 95/53 (67) 95 11/18/17 04:00 65 11/18/17 00:15 97.7 62 18 90/50 (63) 95 11/18/17 00:00 Nasal Cannula 2.00 11/18/17 00:00 59 11/17/17 20:00 97.3 65 18 95/46 (62) 96 11/17/17 20:00 61 11/17/17 20:00 Nasal Cannula 2.00 11/17/17 18:07 Nasal Cannula 2.00 11/17/17 16:00 97.5 65 18 99/42 (61) 94 11/17/17 13:00 Nasal Cannula 2.00 11/17/17 12:00 97.5 72 18 108/55 (72) 94 11/17/17 12:00 67 . Laboratory Tests Test 11/16/17 19:28 Blood Urea Nitrogen 53 MG/DL Creatinine 7.94 MG/DL Random Glucose 121 MG/DL Calcium Level 8.1 MG/DL Sodium Level 137 MEQ/L Potassium Level 4.9 MEQ/L Chloride Level 101 MEQ/L Carbon Dioxide Level 25.1 MEQ/L Anion Gap 11 MEQ/L Estimat Glomerular Filtration Rate 7 ML/MIN Microbiology Date/Time Source Procedure Growth Status 11/15/17 14:30 Blood Other Aerobic Blood Culture - Preliminary NO GROWTH IN 3 DAYS Resulted 11/15/17 14:30 Blood Other Anaerobic Blood Culture - Preliminary NO GROWTH IN 3 DAYS Resulted 11/15/17 14:30 Blood Other Aerobic Blood Culture - Preliminary NO GROWTH IN 3 DAYS Resulted 11/15/17 14:30 Blood Other Anaerobic Blood Culture - Preliminary NO GROWTH IN 3 DAYS Resulted Imaging Lower Extremity Ultrasound 11/13/17 0000 Signed Impressions: Service Date/Time: Monday, November 13, 2017 07:52 - CONCLUSION: No DVT seen in either leg. Jewel Kaiser MD Hand X-Ray 11/13/17 0000 Signed Impressions: Service Date/Time: Monday, November 13, 2017 10:18 - CONCLUSION: Osteoporosis. Extensive arterial calcifications. 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 No definite evidence of bony destruction or osteomyelitis Jared Upton MD Physical Exam GENERAL: awake and alert, not in respiratory distress. SKIN: Cool and dry. No rash HEAD: Atraumatic. Normocephalic. No temporal wasting, or tenderness. EYES: [place] conjunctiva. No petechia or hemorrhage. Pupils equal, round and reactive to light. Extraocular movements full and intact. No scleral icterus. No injection or drainage. EARS, NOSE AND THROAT: No sinus tenderness. Mucous membranes pink and moist. No oral lesions noted. NECK: Trachea midline, supple and not tender CARDIOVASCULAR: Regular rate and rhythm. Has systolic murmur over L precordium and base of the heart RESPIRATORY: Clear to auscultation. No rales, wheezing or rhonchi. Decreased at both bases ABDOMEN: Distended and protuberant, non-tender, bowel sounds present and hypoactive. No guarding. No rebound. Liver edge palpable on R side of abdomen, not tender. EXTREMITIES: No clubbing, cyanosis. Has edema of both feet, well healed amputation R 5th toe. Stable lesions in both hands. LUE AVF no bruit/thrill. No redness noted. No calf tenderness. NEUROLOGICAL: Awake and alert. Cranial nerves grossly intact. Motor grossly within normal limits. PSYCHIATRIC: Normal affect, calm and cooperative. LINE: No evidence of infection Previous permacath site RIJ base, with dry and intact dressings R groin vascath in place, with dry dressing Assessment & Plan Remarks IMPRESSION Enterobacter bacteremia, BC 11/05 (+), ?source - permacath C/S negative (?due to previous Abx) - concern with infected thrombus LUE AVF - ?other endovascular focus Thrombosis DRIL LUE AVF ESRD on HD MWF Ascites, ?primary liver problem or other etiology LMF dry gangrene Diarrhea, better - C diff negative RECOMMENDATION Follow repeat BC Continue IV Rocephin to cover Enterobacter Will determine course of Abx after once surgery done on his LUE AVF Plans for next week noted Loraine Martinez MD Nov 18, 2017 11:40
--- NOTE | 2017-11-18 13:45 | HHI.NPPN ---
Subjective History of Present Illness Patient is a 67-year-old male with a history of end-stage renal disease on hemodialysis Sunday/Sunday/ Sunday, diabetes, CAD, CHF, hypertension was transferred from [facility] to be evaluated by vascular surgery. Patient states he was admitted to [facility] because he had low blood pressure readings at home. AV fistula has not been functioning or used for 6- 8 weeks and they have been using a permacath for dialysis. Permacath has been removed secondary to possible infection and vas cath has been placed. He has been treated with cefepime IV. Last dialysis was Sunday and 1.5 L removed. Patient has a necrotic left middle finger that patient states has been going on for the last 12 weeks. Additional Remarks Denies any SOB, moderate edema. Review of Systems Respiratory Respiratory Remarks Denies any SOB Cardiovascular Cardiac: Edema Cardiac Remarks Denies any CP Gastrointestinal GI Remarks Denies any abdominal pain Genitourinary Remarks Objective Data Data Vital Signs Date Time Temp Pulse Resp B/P (MAP) Pulse Ox O2 Delivery O2 Flow Rate FiO2 11/18/17 09:17 Nasal Cannula 2.00 11/18/17 08:20 100 Nasal Cannula 2.00 11/18/17 08:10 98.0 59 17 100/52 (68) 100 11/18/17 08:00 65 11/18/17 04:46 97.4 66 18 95/53 (67) 95 11/18/17 04:00 65 11/18/17 00:15 97.7 62 18 90/50 (63) 95 11/18/17 00:00 Nasal Cannula 2.00 11/18/17 00:00 59 11/17/17 20:00 97.3 65 18 95/46 (62) 96 11/17/17 20:00 61 11/17/17 20:00 Nasal Cannula 2.00 11/17/17 18:07 Nasal Cannula 2.00 11/17/17 16:00 97.5 65 18 99/42 (61) 94 -: 11/16/171927 Physical Exam General Appearance: Well Developed, Well Nourished, No Acute Distress, Comfortable Eyes Eye Exam: Pupils Equal Throat Throat Exam: Oral Mucosa [place] & Moist Pulmonary Resp Exam: Clear Bilaterally, Breath Sounds Equal, No Distress Cardiology CV Exam: Regular Gastrointestinal/Abdomen GI Exam: Soft, Non-Tender, Non-Distended Musculoskeletal MS Exam: Good Strength Extremeties Extremities Exam: Trace Edema Neurologic Neuro Exam: Alert Psychiatric Psych Exam: Appropriate Responses Assessment/Plan Discussed Condition With: Spouse Assessment Summary: End Stage Renal Disease Problem List: (1) ESRD (end stage renal disease) on dialysis ICD Codes: N18.6 - End stage renal disease; Z99.2 - Dependence on renal dialysis Plan: Dialysis MWF- vas cath Perma cath removed for possible infection: ID consulted Vas cath in femoral area will need permacath when cleared per ID Initially BC negative. Repeat drawn neg Continue phoslo Pitting edema noted Will need revascularization of left arm along with closure of AVF, possibly next week. on HD UF 2 L yesterday plan as above Follow up with Dr. Santos (2) Gangrene of finger of left hand ICD Codes: I96 - Gangrene, not elsewhere classified Plan: necrotic area on left hand middle finger Hand surgery consulted (3) AV fistula occlusion ICD Codes: T82.898A - Other specified complication of vascular prosthetic devices, implants and grafts, initial encounter Plan: Will need revascularization of left arm along with closure of AVF, possibly next week. (4) Diabetes mellitus ICD Codes: E11.9 - Type 2 diabetes mellitus without complications Plan: Maintain BS between 140mg/dl to 180 mg/dl Micah Parmar MD Nov 18, 2017 13:45
[2017-11-18] MEDS: cefTRIAXone INJ 2,000 MG in SODIUM CHLORIDE 0.9% INJ 100 ML IV SCH (15:31)
[2017-11-19] VITALS (9 sets, daily range): BP systolic 94–106; BP diastolic 43–53; PULSE 60–85; RESP 18–20; TEMP 97.5–98.7; O2SAT 91–100
[2017-11-19] MEDS: HEPARIN SODIUM - SQ 10,000 UNITS/ML VIAL SQ SCH ×3 (05:33→21:01)
[2017-11-19] MEDS: LEVOTHYROXINE SODIUM 125 MCG TAB PO SCH (05:33)
[2017-11-19] MEDS: INSULIN ASPART SUPPLEMENTAL SCALE SQ SCH ×4 (08:00→22:42)
[2017-11-19] MEDS: SODIUM CHLORIDE 0.9% FLUSH 10 ML FLUSH IV FLUSH SCH ×2 (08:17→20:59)
[2017-11-19] MEDS: CALCIUM ACETATE 667 MG CAP PO SCH ×3 (09:00→18:00)
--- NOTE | 2017-11-19 10:22 | PD.VS.PN ---
Subjective Subjective/Hospital Course 67/M Pt with ESRD and B UE hand ischemia Pt seen in HD Wounds stable Objective Vitals/I&O Date Time Temp Pulse Resp B/P (MAP) Pulse Ox O2 Delivery O2 Flow Rate FiO2 11/19/17 08:00 97.9 60 20 106/52 (70) 96 11/19/17 08:00 60 11/19/17 07:00 Nasal Cannula 2.00 11/19/17 04:59 98.2 60 18 102/53 (69) 100 11/19/17 03:59 60 11/19/17 00:58 97.5 61 18 102/49 (66) 96 11/19/17 00:00 Nasal Cannula 2.00 Humidified 11/19/17 00:00 62 11/18/17 20:00 97.5 63 20 89/58 (68) 98 94/54 (67) 11/18/17 20:00 Nasal Cannula 2.00 Humidified 11/18/17 20:00 59 11/18/17 16:10 97.7 63 17 106/54 (71) 96 11/18/17 16:00 63 11/18/17 15:49 Nasal Cannula 2.00 11/18/17 12:10 98.2 60 17 96/52 (67) 100 11/18/17 12:00 59 Physical Exam GENERAL: A&Ox3, GCS15, NAD SKIN: Warm and dry Non palpable L radial pulse UE warm Laboratory Date/Time Source Procedure Growth Status 11/15/17 14:30 Blood Other Aerobic Blood Culture - Preliminary NO GROWTH IN 3 DAYS Resulted 11/15/17 14:30 Blood Other Anaerobic Blood Culture - Preliminary NO GROWTH IN 3 DAYS Resulted Assessment and Plan Plan B UE ischemia Plan Pt scheduled for a L UE bypass, likely brachial-brachial with ligation of failing L AVF on 11/20/17 w/ Dr. Jansen Discussed surgical intervention w/ pt Pt agrees w/ plan and consent was signed and placed in the chart NPO after midnight Renetta Gaviria [facility] [phone] Renetta Gaviria Nov 19, 2017 10:22
[2017-11-19] MEDS: GENTAMICIN SULFATE 20 MG/2 ML VIAL OTHER PRN (11:25)
[2017-11-19] MEDS: HEPARIN SODIUM - IV 10,000 UNITS/10 ML VIAL PRN (11:25)
--- NOTE | 2017-11-19 12:21 | HHI.IDPN ---
Subjective Subjective Remarks Patient is a 67-year-old male, has been at [facility] for the last 15 days, transferred to [facility] for vascular evaluation. Patient has known end-stage renal disease and gets hemodialysis every Sunday and Sunday. He had a left upper extremity AV fistula, and it had some problem, so he underwent left upper extremity access revision, left upper extremity distal revascularization and interval ligation, last August 07, 2017. He was discharged, and apparently the fistula was working okay, and during that admission also he had that left middle finger dry gangrene which was felt to be ischemic in nature due to steal syndrome. As an outpatient, his fistula apparently stopped working, so he had a permacath placed in his right IJ. Patient stated that he's had problem on and off with low blood pressure for the last 4 months. The hypotension were getting worse and he ended up getting admitted at [facility] where he stayed for at least 15 days. During that admission, he had some positive blood culture done on November 05 that grew Enterobacter cloaca. Blood culture from November 07 were negative. His permacath was removed on November 07 and the culture of that was negative. Patient was apparently getting IV cefepime, and there was an infectious disease specialist monitoring him for his infection. Patient stated that he's had some reaction to the cefepime and he describes it as burning sensation. Patient is currently afebrile. There was evaluation of his AV fistula which shows thrombosis of his DRIL. He has now been transferred to [facility] for vascular evaluation. Infectious disease consultation has been requested to evaluate for sepsis. Notes reviewed Sheri bird D/W HD RN Having HD For permacath placement also OR plans noted for his LUE AVF scheduled for tomorrow Fup BC negative so far Antibiotics Current Medications Rocephin Medications (Trade) Dose Ordered Sig/Renny Route Start Time Stop Time Status Last Admin (NS Flush) 2 ml UNSCH PRN IV FLUSH 11/12/17 20:00 (NS Flush) 2 ml BID IV FLUSH 11/12/17 21:00 11/19/17 08:17 (Tylenol) 650 mg Q4H PRN PO 11/12/17 20:00 (Zofran Inj) 4 mg Q6H PRN IVP 11/12/17 20:00 (Narcan Inj) 0.4 mg UNSCH PRN IV PUSH 11/12/17 20:00 (Milk Of Magnesia Liq) 30 ml Q12H PRN PO 11/12/17 20:00 (Senokot) 17.2 mg Q12H PRN PO 11/12/17 20:00 (Dulcolax Supp) 10 mg DAILY PRN RECTAL 11/12/17 20:00 (Lactulose Liq) 30 ml DAILY PRN PO 11/12/17 20:00 (Morphine Inj) 2 mg Q3H PRN IV PUSH 11/12/17 23:30 (Morphine Inj) 4 mg Q3H PRN IV PUSH 11/12/17 23:30 (Heparin Inj) 5,000 units Q8HR SQ 11/13/17 06:00 11/18/17 15:31 (Synthroid) 125 mcg DAILY@0600 PO 11/13/17 06:00 11/18/17 05:32 (D50w (Vial) Inj) 50 ml UNSCH PRN IV PUSH 11/12/17 23:30 (Glucagon Inj) 1 mg UNSCH PRN OTHER 11/12/17 23:30 (NovoLOG SUPPLEMENTAL SCALE) 1 ACHS SLIDING SCALE SQ 11/13/17 08:00 11/18/17 21:00 (Phoslo) 667 mg TID PO 11/13/17 09:00 11/18/17 17:03 (Ecotrin Ec) 162 mg DAILY PO 11/13/17 09:00 11/18/17 08:31 (Plavix) 75 mg DAILY PO 11/13/17 09:00 Future Hold 11/16/17 08:23 (Baciguent Oint) 1 applic Q12HR TOPICAL 11/13/17 21:00 11/18/17 21:00 Sodium Chloride 1,000 ml @ 0 mls/hr Q0M PRN OTHER 11/13/17 14:09 (Heparin Inj) 8,000 units UNSCH PRN IV FLUSH 11/13/17 14:15 11/15/17 15:23 Sodium Chloride 1,000 ml @ 200 mls/hr Q5H PRN IV 11/13/17 14:09 Sodium Chloride 1,000 ml @ 0 mls/hr Q0M PRN OTHER 11/13/17 14:09 (Mannitol Inj) 12.5 gm UNSCH PRN IV 11/13/17 14:15 11/17/17 11:53 Albumin Human 100 ml @ 60 mls/hr UNSCH PRN IV 11/13/17 14:15 11/17/17 11:54 (NS Flush) 5 ml UNSCH PRN IV FLUSH 11/13/17 14:15 (Heparin Inj) UNSCH PRN .XX 11/13/17 14:15 11/19/17 11:25 (Gentamicin Inj) 20 mg UNSCH PRN OTHER 11/13/17 14:15 11/19/17 11:25 (Zofran Inj) 4 mg UNSCH PRN IV PUSH 11/13/17 14:15 (Tylenol) 650 mg UNSCH PRN PO 11/13/17 14:15 11/18/17 08:40 (Benadryl) 25 mg UNSCH PRN PO 11/13/17 14:15 (Nitrostat Sl) 0.4 mg UNSCH PRN SL 11/13/17 14:15 (Catapres) 0.1 mg UNSCH PRN PO 11/13/17 14:15 (Epogen Inj) 4,000 units UNSCH PRN IV PUSH 11/13/17 14:15 11/17/17 11:50 (Gelfoam 12 Mm/7 Mm Top) 1 foam UNSCH PRN TOP 11/13/17 14:15 Ceftriaxone Sodium 2000 mg/ Sodium Chloride 100 ml @ 200 mls/hr Q24H IV 11/13/17 16:00 11/18/17 15:31 (Coreg) 3.125 mg BID PO 11/16/17 21:00 11/18/17 08:31 (Protonix) 20 mg DAILY PO 11/17/17 09:00 11/18/17 08:31 (Heparin Inj) 5,000 units Q12HR SQ 11/16/17 21:00 11/25/17 12:00 Future Hold 11/18/17 08:31 Lines Vascath R groin Past Medical History ESRD DM CAD HF. HTN Enlarged liver, and ascites Past Surgical History Pacemaker CABGx4 with mitral valvuloplasty in february 2005 Right fifth toe amputation Right shoulder rotator cuff repair Has had repeated paracentesis to drain his ascites Allergies: Coded Allergies: adhesive (Unverified Adverse Reaction, Severe, SKIN BREAKDOWN/ULCERS, ) Uncoded Allergies: MSG (Allergy, Intermediate, bowel problems, 08/02/17) Objective . Vital Signs Date Time Temp Pulse Resp B/P (MAP) Pulse Ox O2 Delivery O2 Flow Rate FiO2 11/19/17 08:00 97.9 60 20 106/52 (70) 96 11/19/17 08:00 60 11/19/17 07:00 Nasal Cannula 2.00 11/19/17 04:59 98.2 60 18 102/53 (69) 100 11/19/17 03:59 60 11/19/17 00:58 97.5 61 18 102/49 (66) 96 11/19/17 00:00 Nasal Cannula 2.00 Humidified 11/19/17 00:00 62 11/18/17 20:00 97.5 63 20 89/58 (68) 98 94/54 (67) 11/18/17 20:00 Nasal Cannula 2.00 Humidified 11/18/17 20:00 59 11/18/17 16:10 97.7 63 17 106/54 (71) 96 11/18/17 16:00 63 11/18/17 15:49 Nasal Cannula 2.00 11/19/17 11/19/17 11/20/17 15:00 23:00 07:00 Output Total 4000 ml Balance -4000 ml Hemodialysis 4000 ml Imaging Lower Extremity Ultrasound 11/13/17 0000 Signed Impressions: Service Date/Time: Monday, November 13, 2017 07:52 - CONCLUSION: No DVT seen in either leg. Jewel Kaiser MD Hand X-Ray 11/13/17 0000 Signed Impressions: Service Date/Time: Monday, November 13, 2017 10:18 - CONCLUSION: Osteoporosis. Extensive arterial calcifications. 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 No definite evidence of bony destruction or osteomyelitis Jared Upton MD Physical Exam GENERAL: awake and alert, NAD SKIN: Cool and dry. No rash EYES: [place] conjunctiva. No petechia or hemorrhage. Pupils equal, round and reactive to light. Extraocular movements full and intact. No scleral icterus. EARS, NOSE AND THROAT: No sinus tenderness. Mucous membranes pink and moist. No oral lesions noted. NECK: Trachea midline, supple and not tender CARDIOVASCULAR: Regular rate and rhythm. Has systolic murmur over L precordium and base of the heart RESPIRATORY: Clear to auscultation. No rales, wheezing or rhonchi. Decreased at both bases ABDOMEN: Distended and protuberant, non-tender, bowel sounds present and hypoactive. No guarding. No rebound. Liver edge palpable on R side of abdomen, not tender. EXTREMITIES: No clubbing, cyanosis. Has edema of both feet, well healed amputation R 5th toe. Stable lesions in both hands. LUE AVF no bruit/thrill. No redness noted. No calf tenderness. NEUROLOGICAL: Non-focal PSYCHIATRIC: Normal affect, calm and cooperative. LINE: No evidence of infection Previous permacath site RIJ base, with dry and intact dressings R groin vascath in place, with dry dressing Assessment & Plan Remarks IMPRESSION Enterobacter bacteremia, BC 11/05 (+), ?source - permacath C/S negative (?due to previous Abx) - concern with infected thrombus LUE AVF - ?other endovascular focus Thrombosis DRIL LUE AVF ESRD on HD MWF Ascites, ?primary liver problem or other etiology LMF dry gangrene Diarrhea, better - C diff negative RECOMMENDATION Follow repeat BC Continue IV Rocephin to cover Enterobacter Will determine course of Abx after once surgery done on his LUE AVF Plans for next week noted Loraine Martinez MD Nov 19, 2017 12:21
[2017-11-19] MEDS: PANTOPRAZOLE SOD 20 MG DELAYED RELEASE TAB PO SCH (13:55)
[2017-11-19] MEDS: CARVEDILOL 3.125 MG TAB PO SCH ×2 (13:55→21:00)
[2017-11-19] MEDS: ASPIRIN EC 81 MG TABEC PO SCH (13:55)
[2017-11-19 14:13] LABS: INTERNATIONAL NORMALIZED RATIO 1.1 RATIO; PROTHROMBIN TIME - PATIENT 11.2 SEC (9.8-11.6)
[2017-11-19] MEDS: BACITRACIN TOP OINT 15 GM TUBE TOPICAL SCH ×2 (15:00→20:58)
--- NOTE | 2017-11-19 16:16 | HHI.NPPN ---
Subjective History of Present Illness Patient is a 67-year-old male with a history of end-stage renal disease on hemodialysis Sunday/Sunday/ Sunday, diabetes, CAD, CHF, hypertension was transferred from [facility] to be evaluated by vascular surgery. Patient states he was admitted to [facility] because he had low blood pressure readings at home. AV fistula has not been functioning or used for 6- 8 weeks and they have been using a permacath for dialysis. Permacath has been removed secondary to possible infection and vas cath has been placed. He has been treated with cefepime IV. Last dialysis was Sunday and 1.5 L removed. Patient has a necrotic left middle finger that patient states has been going on for the last 12 weeks. Additional Remarks Patient is alert, has improvement in SOB, complaining of abd. distension. Review of Systems Respiratory Respiratory Remarks Denies any SOB Cardiovascular Cardiac: Edema Cardiac Remarks Denies any CP Gastrointestinal GI Remarks Denies any abdominal pain Genitourinary Remarks Objective Data Data 11/19/17 11/20/17 19:00 07:00 Output Total 4000 ml Balance -4000 ml Hemodialysis 4000 ml Vital Signs Date Time Temp Pulse Resp B/P (MAP) Pulse Ox O2 Delivery O2 Flow Rate FiO2 11/19/17 16:00 97.8 76 20 94/51 (65) 91 11/19/17 12:23 Nasal Cannula 2.00 11/19/17 12:00 98.6 64 20 97/50 (66) 95 11/19/17 08:00 97.9 60 20 106/52 (70) 96 11/19/17 08:00 60 11/19/17 07:00 Nasal Cannula 2.00 11/19/17 04:59 98.2 60 18 102/53 (69) 100 11/19/17 03:59 60 11/19/17 00:58 97.5 61 18 102/49 (66) 96 11/19/17 00:00 Nasal Cannula 2.00 Humidified 11/19/17 00:00 62 11/18/17 20:00 97.5 63 20 89/58 (68) 98 94/54 (67) 11/18/17 20:00 Nasal Cannula 2.00 Humidified 11/18/17 20:00 59 -: 11/16/171927 Physical Exam General Appearance: Well Developed, Well Nourished, No Acute Distress, Comfortable Eyes Eye Exam: Pupils Equal Throat Throat Exam: Oral Mucosa [place] & Moist Pulmonary Resp Exam: Clear Bilaterally, Breath Sounds Equal, No Distress Cardiology CV Exam: Regular Gastrointestinal/Abdomen GI Exam: Soft, Non-Tender, Non-Distended Musculoskeletal MS Exam: Good Strength Extremeties Extremities Exam: Trace Edema Neurologic Neuro Exam: Alert Psychiatric Psych Exam: Appropriate Responses Assessment/Plan Discussed Condition With: Spouse Assessment Summary: End Stage Renal Disease Problem List: (1) ESRD (end stage renal disease) on dialysis ICD Codes: N18.6 - End stage renal disease; Z99.2 - Dependence on renal dialysis Plan: Dialysis MWF- vas cath Perma cath removed for possible infection: ID consulted Vas cath in femoral area will need PermCath when cleared per ID Initially BC negative. Repeat drawn neg Continue phoslo Pitting edema noted Will need revascularization of left arm along with closure of AVF, possibly tomorrow. Has abd. distension, with possible ascites. HD done and 5 liters removed. PermCath will be done on Sun. (2) Gangrene of finger of left hand ICD Codes: I96 - Gangrene, not elsewhere classified Plan: necrotic area on left hand middle finger Hand surgery consulted (3) AV fistula occlusion ICD Codes: T82.898A - Other specified complication of vascular prosthetic devices, implants and grafts, initial encounter Plan: Will need revascularization of left arm along with closure of AVF, possibly next week. (4) Diabetes mellitus ICD Codes: E11.9 - Type 2 diabetes mellitus without complications Plan: Maintain BS between 140mg/dl to 180 mg/dl Kim Santos MD Nov 19, 2017 16:16
[2017-11-19] MEDS: cefTRIAXone INJ 2,000 MG in SODIUM CHLORIDE 0.9% INJ 100 ML IV SCH (17:46)
--- NOTE | 2017-11-19 18:55 | HHI.PR ---
Subjective Remarks pain controlled Denies cp, sob, afebrile. and Son at bedside. Objective Vitals Vital Signs Date Time Temp Pulse Resp B/P (MAP) Pulse Ox O2 Delivery O2 Flow Rate FiO2 11/19/17 16:00 97.8 76 20 94/51 (65) 91 11/19/17 12:23 Nasal Cannula 2.00 11/19/17 12:00 98.6 64 20 97/50 (66) 95 11/19/17 08:00 97.9 60 20 106/52 (70) 96 11/19/17 08:00 60 11/19/17 07:00 Nasal Cannula 2.00 11/19/17 04:59 98.2 60 18 102/53 (69) 100 11/19/17 03:59 60 11/19/17 00:58 97.5 61 18 102/49 (66) 96 11/19/17 00:00 Nasal Cannula 2.00 Humidified 11/19/17 00:00 62 11/18/17 20:00 97.5 63 20 89/58 (68) 98 94/54 (67) 11/18/17 20:00 Nasal Cannula 2.00 Humidified 11/18/17 20:00 59 I/O 11/18/17 11/18/17 11/18/17 11/19/17 11/19/17 11/19/17 07:00 15:00 23:00 07:00 15:00 23:00 Intake Total 340 ml 240 ml Output Total 1200 ml 4000 ml Balance -860 ml -4000 ml 240 ml Intake Oral 340 ml 240 ml Output Urine Total 1200 ml Hemodialysis 4000 ml # Voids 2 # Bowel Movements 1 2 4 Result Diagram: 11/16/171927 Imaging Last Impressions Lower Extremity Ultrasound 11/13/17 0000 Signed Impressions: Service Date/Time: Monday, November 13, 2017 07:52 - CONCLUSION: No DVT seen in either leg. Jewel Kaiser MD Hand X-Ray 11/13/17 0000 Signed Impressions: Service Date/Time: Monday, November 13, 2017 10:18 - CONCLUSION: Osteoporosis. Extensive arterial calcifications. 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 No definite evidence of bony destruction or osteomyelitis Jared Upton MD Objective Remarks GENERAL: sitting up on edge of bed. Appears comfortable. again, no change on exam. SKIN: Warm and dry. HEAD: Normocephalic. EYES: No scleral icterus. No injection or drainage. NECK: Supple, trachea midline. No JVD. CARDIOVASCULAR: Regular rate and rhythm without murmurs, gallops, or rubs. RESPIRATORY: Breath sounds equal bilaterally. No accessory muscle use. GASTROINTESTINAL: Abdomen soft, non-tender, nondistended. MUSCULOSKELETAL: No cyanosis, or edema. patient does have dry gangrene of left third finger. No erythema proximally. BACK: Nontender without obvious deformity. No CVA tenderness. Procedures Sp LUE angiogram. Medications and IVs Current Medications Medications (Trade) Dose Ordered Sig/Renny Route Start Time Stop Time Status Last Admin (NS Flush) 2 ml UNSCH PRN IV FLUSH 11/12/17 20:00 (NS Flush) 2 ml BID IV FLUSH 11/12/17 21:00 11/19/17 08:17 (Tylenol) 650 mg Q4H PRN PO 11/12/17 20:00 (Zofran Inj) 4 mg Q6H PRN IVP 11/12/17 20:00 (Narcan Inj) 0.4 mg UNSCH PRN IV PUSH 11/12/17 20:00 (Milk Of Magnesia Liq) 30 ml Q12H PRN PO 11/12/17 20:00 (Senokot) 17.2 mg Q12H PRN PO 11/12/17 20:00 (Dulcolax Supp) 10 mg DAILY PRN RECTAL 11/12/17 20:00 (Lactulose Liq) 30 ml DAILY PRN PO 11/12/17 20:00 (Morphine Inj) 2 mg Q3H PRN IV PUSH 11/12/17 23:30 (Morphine Inj) 4 mg Q3H PRN IV PUSH 11/12/17 23:30 (Heparin Inj) 5,000 units Q8HR SQ 11/13/17 06:00 11/18/17 15:31 (Synthroid) 125 mcg DAILY@0600 PO 11/13/17 06:00 11/18/17 05:32 (D50w (Vial) Inj) 50 ml UNSCH PRN IV PUSH 11/12/17 23:30 (Glucagon Inj) 1 mg UNSCH PRN OTHER 11/12/17 23:30 (NovoLOG SUPPLEMENTAL SCALE) 1 ACHS SLIDING SCALE SQ 11/13/17 08:00 11/18/17 21:00 (Phoslo) 667 mg TID PO 11/13/17 09:00 11/18/17 17:03 (Ecotrin Ec) 162 mg DAILY PO 11/13/17 09:00 11/19/17 13:55 (Plavix) 75 mg DAILY PO 11/13/17 09:00 Future Hold 11/16/17 08:23 (Baciguent Oint) 1 applic Q12HR TOPICAL 11/13/17 21:00 11/19/17 15:00 Sodium Chloride 1,000 ml @ 0 mls/hr Q0M PRN OTHER 11/13/17 14:09 (Heparin Inj) 8,000 units UNSCH PRN IV FLUSH 11/13/17 14:15 11/15/17 15:23 Sodium Chloride 1,000 ml @ 200 mls/hr Q5H PRN IV 11/13/17 14:09 Sodium Chloride 1,000 ml @ 0 mls/hr Q0M PRN OTHER 11/13/17 14:09 (Mannitol Inj) 12.5 gm UNSCH PRN IV 11/13/17 14:15 11/17/17 11:53 Albumin Human 100 ml @ 60 mls/hr UNSCH PRN IV 11/13/17 14:15 11/17/17 11:54 (NS Flush) 5 ml UNSCH PRN IV FLUSH 11/13/17 14:15 (Heparin Inj) UNSCH PRN .XX 11/13/17 14:15 11/19/17 11:25 (Gentamicin Inj) 20 mg UNSCH PRN OTHER 11/13/17 14:15 11/19/17 11:25 (Zofran Inj) 4 mg UNSCH PRN IV PUSH 11/13/17 14:15 (Tylenol) 650 mg UNSCH PRN PO 11/13/17 14:15 11/18/17 08:40 (Benadryl) 25 mg UNSCH PRN PO 11/13/17 14:15 (Nitrostat Sl) 0.4 mg UNSCH PRN SL 11/13/17 14:15 (Catapres) 0.1 mg UNSCH PRN PO 11/13/17 14:15 (Epogen Inj) 4,000 units UNSCH PRN IV PUSH 11/13/17 14:15 11/17/17 11:50 (Gelfoam 12 Mm/7 Mm Top) 1 foam UNSCH PRN TOP 11/13/17 14:15 Ceftriaxone Sodium 2000 mg/ Sodium Chloride 100 ml @ 200 mls/hr Q24H IV 11/13/17 16:00 11/19/17 17:46 (Coreg) 3.125 mg BID PO 11/16/17 21:00 11/19/17 13:55 (Protonix) 20 mg DAILY PO 11/17/17 09:00 11/19/17 13:55 (Heparin Inj) 5,000 units Q12HR SQ 11/16/17 21:00 11/25/17 12:00 Future Hold 11/18/17 08:31 A/P Problem List: (1) AV fistula occlusion ICD Code: T82.898A - Other specified complication of vascular prosthetic devices, implants and grafts, initial encounter (2) ESRD (end stage renal disease) on dialysis ICD Code: N18.6 - End stage renal disease; Z99.2 - Dependence on renal dialysis (3) Diabetes mellitus ICD Code: E11.9 - Type 2 diabetes mellitus without complications Assessment and Plan 67-year-old male with a history of end-stage renal disease on hemodialysis Sunday, diabetes, CAD, CHF, hypertension was transferred from [facility] to be evaluated by vascular surgery. AV Fistula occlusion Records from [facility] reviewed and shows occlusion to left av fistula -Vascular Surgery consulted. -Cont ASA and Plavix -Pain management with Morphine IV. -Patient status post angiogram. 11/19 The patient will likely need revascularization of left arm along with closure of AV fistula. Pt scheduled for a L UE bypass, likely brachial-brachial with ligation of failing L AVF on 11/20/17 w/ Dr. Jansen Bacteremia. Positive blood cultures 11/05 at outside hospital with Enterobacter. = 2/2 Discussed with infectious disease. at time of dc, can discharge on Cipro 750 mg by mouth once daily for 28 days. 25 Blood cultures negative. LH gangrene, left middle finger necrotic -Consult ID for recommendations -Consult Hand surgery for recommendations = Worked up as above. Appreciate network security consultant assistance. 2 Discussed case with hand surgery. Patient will be scheduled for OR on Wednesday afternoon. Diabetes, chronic -Accu checks with SSI 2/ Blood sugars stable. ESRD on Dialysis, MWF -Consult nephrology for recommendations, patient known to Dr. Pereyra -Resume home calcium acetate 667mg TID = Nephrology following. Appreciate assistance. Dialysis as per nephrology. = 11/18. Plan for right IJ permacath as per nephrology tomorrow Sunday. Cleared by ID. Chronic loose bowel movements. Likely IBS. Negative C. difficile. Hypertension, chronic -Cont coreg 3.125mg Daily, monitor vitals = 11/18. Systolic blood pressure slightly low overnight with systolics in the 90s. Patient denying any lightheadedness or dizziness. I cleaned some overdiuresis. Continue to monitor. Hypothyroid, chronic: Continue home medications //DVT prophylaxis: Heparin SQ Discharge Planning Pending Permacath placement. Pt scheduled for a L UE bypass, likely brachial-brachial with ligation of failing L AVF on 11/20/17 w/ Mat Broussard MD Nov 19, 2017 18:55
[2017-11-20] VITALS (13 sets, daily range): BP systolic 88–134; BP diastolic 49–67; PULSE 59–83; RESP 16–28; TEMP 97.4–98.4; O2SAT 93–100
[2017-11-20] MEDS ORDERED: SODIUM CHLORID 0.9% 500 ML IV PRN (05:15)
[2017-11-20] MEDS ORDERED: METOPROLOL TARTRATE 25 MG TAB PO PRN (05:15)
[2017-11-20] MEDS ORDERED: INSULIN HUMAN REGULAR 1,000 UNITS/10 ML VIAL SQ PRN (05:15)
[2017-11-20] MEDS ORDERED: POVIDONE IODINE 5% (ANTISEPSIS KIT) 4 APPLICATIONS EACH NARE PRN (05:15)
[2017-11-20] MEDS ORDERED: CHLORHEXIDINE GLUCONATE 2 % 1 PACK (2 CLOTHS) TOPICAL PRN (05:15)
[2017-11-20] MEDS ORDERED: LACTATED RINGER'S 1000 ML IV PRN (05:15)
[2017-11-20] MEDS: LEVOTHYROXINE SODIUM 125 MCG TAB PO SCH (05:56)
[2017-11-20] MEDS: HEPARIN SODIUM - SQ 10,000 UNITS/ML VIAL SQ SCH ×3 (05:57→22:00)
[2017-11-20] MEDS: INSULIN ASPART SUPPLEMENTAL SCALE SQ SCH ×3 (08:00→21:00)
[2017-11-20] MEDS: BACITRACIN TOP OINT 15 GM TUBE TOPICAL SCH ×2 (09:00→21:00)
[2017-11-20] MEDS: SODIUM CHLORIDE 0.9% FLUSH 10 ML FLUSH IV FLUSH SCH ×2 (09:00→21:00)
[2017-11-20] MEDS: CALCIUM ACETATE 667 MG CAP PO SCH ×3 (09:00→18:00)
[2017-11-20] MEDS: CARVEDILOL 3.125 MG TAB PO SCH ×2 (09:00→21:00)
[2017-11-20] MEDS: PANTOPRAZOLE SOD 20 MG DELAYED RELEASE TAB PO SCH (09:24)
[2017-11-20] MEDS: ASPIRIN EC 81 MG TABEC PO SCH (09:25)
[2017-11-20] MEDS ORDERED: SODIUM CHLORID 0.9% 500 ML INJ 500 ML IV ONE (10:00)
[2017-11-20] MEDS ORDERED: PROTAMINE SULFATE 50 MG/5 ML VIAL ONE (10:49)
[2017-11-20] MEDS ORDERED: BUPIVACAINE HCL PF 0.5% 10 ML VIAL ONE (10:49)
[2017-11-20] MEDS ORDERED: HEPARIN SODIUM - IV 10,000 UNITS/10 ML VIAL ONE (10:49)
[2017-11-20] MEDS ORDERED: ceFAZolin 2 GM PREMIX 0 ML ONE (10:50)
[2017-11-20] MEDS ORDERED: HEPARIN-NS/PF INJ 500 ML ONE (10:50)
[2017-11-20] MEDS ORDERED: THROMBIN (TOPICAL) 20,000 UNIT SPRAY KIT ONE (10:50)
[2017-11-20] MEDS ORDERED: SODIUM CHLOR 0.9% 250 ML INJ 250 ML ONE (11:39)
[2017-11-20] MEDS ORDERED: VANCOMYCIN HCL 1000 MG VIAL ONE (11:39)
[2017-11-20] MEDS ORDERED: PHENYLEPHRINE HCL 10 MG/ML VIAL IV ONE (12:00)
[2017-11-20] MEDS ORDERED: PROPOFOL 200 MG/20 ML AMP IV ONE (12:00)
[2017-11-20] MEDS ORDERED: PHENYLEPH/NS 1000 MCG/10 ML SYR IV ONE (12:00)
[2017-11-20] MEDS ORDERED: NS 500 ML (EXCEL BAG) INJ 500 ML IV ONE (12:00)
[2017-11-20] MEDS ORDERED: SODIUM CHLOR 0.9% 250 ML INJ 250 ML IV ONE (12:00)
[2017-11-20] MEDS ORDERED: LIDOCAINE HCL 1% PF 5 ML SYRINGE OTHER ONE (12:00)
[2017-11-20] MEDS ORDERED: SODIUM CHLORIDE 0.9% 20 ML VIAL IV ONE (12:00)
[2017-11-20] MEDS ORDERED: STERILE WATER FOR INJECTION 20 ML VIAL IV ONE (12:00)
[2017-11-20] MEDS ORDERED: KETAMINE HCL 500 MG/5 ML VIAL ONE (12:10)
[2017-11-20] MEDS ORDERED: CISATRACURIUM BESYLATE 20 MG/10 ML VIAL ONE (12:10)
[2017-11-20 12:14] LABS: ALBUMIN 2.5 GM/DL (3.4-5.0); AST (GOT) 14 U/L (15-37); BICARBONATE 25.8 MEQ/L (21.0-32.0); BLOOD UREA NITROGEN 34 MG/DL (7-18); CALCIUM 7.9 MG/DL (8.5-10.1); CHLORIDE 102 MEQ/L (98-107); GLUCOSE,RANDOM 83 MG/DL (74-106); SODIUM (NA) 139 MEQ/L (136-145)
[2017-11-20 12:18] LABS: ALKALINE PHOSPHATASE 388 U/L (45-117); ALT (GPT) 10 U/L (12-78); CREATININE 6.84 MG/DL (0.60-1.30); GLOMERULAR FILTRATION RATE 8 ML/MIN (>89); TOTAL BILIRUBIN ADULT 0.4 MG/DL (0.2-1.0); TOTAL PROTEIN 5.3 GM/DL (6.4-8.2)
[2017-11-20] MEDS ORDERED: BUPIVACAINE HCL PF 0.5% 30 ML VIAL ONE (13:14)
[2017-11-20] MEDS ORDERED: IOHEXOL 300 INJ 50 ML IV ONE (13:53)
--- NOTE | 2017-11-20 14:39 | HHI.NPPN ---
Subjective History of Present Illness Patient is a 67-year-old male with a history of end-stage renal disease on hemodialysis Sunday/Sunday/ Sunday, diabetes, CAD, CHF, hypertension was transferred from [facility] to be evaluated by vascular surgery. Patient states he was admitted to [facility] because he had low blood pressure readings at home. AV fistula has not been functioning or used for 6- 8 weeks and they have been using a permacath for dialysis. Permacath has been removed secondary to possible infection and vas cath has been placed. He has been treated with cefepime IV. Last dialysis was Sunday and 1.5 L removed. Patient has a necrotic left middle finger that patient states has been going on for the last 12 weeks. Additional Remarks Patient seen in AM, before the surgery, with nasal cannula, no SOB. Review of Systems Respiratory Respiratory Remarks Denies any SOB Cardiovascular Cardiac: Edema Cardiac Remarks Denies any CP Gastrointestinal GI Remarks Denies any abdominal pain Genitourinary Remarks Objective Data Data Vital Signs Date Time Temp Pulse Resp B/P (MAP) Pulse Ox O2 Delivery O2 Flow Rate FiO2 11/20/17 12:34 Nasal Cannula 1.50 11/20/17 09:51 94/55 (68) 11/20/17 08:00 97.7 65 20 88/49 (62) 99 11/20/17 08:00 59 11/20/17 07:00 Nasal Cannula 2.00 11/20/17 06:50 96/54 (68) 11/20/17 04:00 97.4 70 16 89/53 (65) 98 11/20/17 04:00 71 11/20/17 00:00 83 11/20/17 00:00 98.4 76 18 106/55 (72) 100 11/20/17 00:00 93 Nasal Cannula 2.00 11/19/17 20:00 Room Air 11/19/17 20:00 98.7 83 18 98/43 (61) 100 11/19/17 20:00 85 11/19/17 16:05 71 11/19/17 16:00 97.8 76 20 94/51 (65) 91 -: 11/20/17 1125 Physical Exam General Appearance: Well Developed, Well Nourished, No Acute Distress, Comfortable Eyes Eye Exam: Pupils Equal Throat Throat Exam: Oral Mucosa [place] & Moist Pulmonary Resp Exam: Clear Bilaterally, Breath Sounds Equal, No Distress Cardiology CV Exam: Regular Gastrointestinal/Abdomen GI Exam: Soft, Non-Tender, Non-Distended Musculoskeletal MS Exam: Good Strength Extremeties Extremities Exam: Trace Edema Neurologic Neuro Exam: Alert Psychiatric Psych Exam: Appropriate Responses Assessment/Plan Discussed Condition With: Spouse Assessment Summary: End Stage Renal Disease Problem List: (1) ESRD (end stage renal disease) on dialysis ICD Codes: N18.6 - End stage renal disease; Z99.2 - Dependence on renal dialysis Plan: Dialysis MWF- vas cath Perma cath removed for possible infection: ID consulted Vas cath in femoral area will need PermCath when cleared per ID Initially BC negative. Repeat drawn neg Continue phoslo Pitting edema noted For revascularization of left arm along with closure of AVF today. Has abd. distension, with possible ascites. PermCath will be done on Sun. HD will be in AM. The BP is low, add Midodrine. (2) Gangrene of finger of left hand ICD Codes: I96 - Gangrene, not elsewhere classified Plan: necrotic area on left hand middle finger Hand surgery consulted (3) AV fistula occlusion ICD Codes: T82.898A - Other specified complication of vascular prosthetic devices, implants and grafts, initial encounter Plan: Will need revascularization of left arm along with closure of AVF, possibly next week. (4) Diabetes mellitus ICD Codes: E11.9 - Type 2 diabetes mellitus without complications Plan: Maintain BS between 140mg/dl to 180 mg/dl Kim Santos MD Nov 20, 2017 14:39
[2017-11-20] MEDS ORDERED: VANCOMYCIN INJ 1,000 MG in SODIUM CHLOR 0.9% 250 ML INJ 250 ML IV SCH (14:45)
[2017-11-20] MEDS ORDERED: ceFAZolin 2 GM PREMIX 50 ML IV SCH (14:45)
--- NOTE | 2017-11-20 15:13 | HHI.PR ---
cc: Narendra Ko MD; Issa Jansen MD Immediate Post Op Note Procedure Date: Nov 20, 2017 Pre Op Diagnosis: L UE hand ischemia, access related, failed DRIL Post Op Diagnosis: L UE hand ischemia, access related, failed DRIL Surgeon: Issa Jansen Hairspring Studder(s): Issa Moraes Procedure: 1. L brachial-brachial bypass with vein 2. Ligation of L UE AVF 3. Insertion of R brachial a-line with ultrasound Findings: occluded DRIL patent AVF Additional Information: after procedure, strong, graft dependent ulnar>radial signal Complications: none Specimen(s) removed: none Estimated blood loss: 300mL Anesthesia: General Drains: None Fluids: 750mL Patient to: PACU Patient Condition: Good Date/Time of Procedure: SEE SURGICAL CARE RECORD Issa Jansen MD Nov 20, 2017 15:13
[2017-11-20] MEDS ORDERED: SENNOSIDES 8.6 MG TAB PO PRN (15:15)
[2017-11-20] MEDS ORDERED: BISACODYL 10 MG SUPP RECTAL PRN (15:15)
[2017-11-20] MEDS ORDERED: LACTULOSE SYRUP 20 GM/30 ML CUP PO PRN (15:15)
[2017-11-20] MEDS ORDERED: HYDROmorphone HCL 2 MG TAB PO PRN (15:15)
[2017-11-20] MEDS ORDERED: MAGNESIUM HYDROXIDE SUSP 30 ML CUP PO PRN (15:15)
[2017-11-20] MEDS ORDERED: MORPHINE SULFATE 2 MG/ML INJ IV PUSH PRN (15:15)
[2017-11-20] MEDS ORDERED: PHENYLEPHRINE HCL 10 MG/ML VIAL ONE (15:43)
[2017-11-20] MEDS ORDERED: PROPOFOL 1000 MG/100 ML INJ 100 ML ONE (15:43)
--- NOTE | 2017-11-20 15:43 | HHI.PR ---
Subjective Remarks Deferred entry - patient seen at 9:45 am Denies cp/sob. Bp noted to be low Objective Vitals Vital Signs Date Time Temp Pulse Resp B/P (MAP) Pulse Ox O2 Delivery O2 Flow Rate FiO2 11/20/17 12:34 Nasal Cannula 1.50 11/20/17 09:51 94/55 (68) 11/20/17 08:00 97.7 65 20 88/49 (62) 99 11/20/17 08:00 59 11/20/17 07:00 Nasal Cannula 2.00 11/20/17 06:50 96/54 (68) 11/20/17 04:00 97.4 70 16 89/53 (65) 98 11/20/17 04:00 71 11/20/17 00:00 83 11/20/17 00:00 98.4 76 18 106/55 (72) 100 11/20/17 00:00 93 Nasal Cannula 2.00 11/19/17 20:00 Room Air 11/19/17 20:00 98.7 83 18 98/43 (61) 100 11/19/17 20:00 85 11/19/17 16:05 71 11/19/17 16:00 97.8 76 20 94/51 (65) 91 I/O 11/19/17 11/19/17 11/19/17 11/20/17 11/20/17 11/20/17 07:00 15:00 23:00 07:00 15:00 23:00 Intake Total 240 ml 750 ml Output Total 4000 ml 300 ml Balance -4000 ml 240 ml 450 ml Intake Oral 240 ml Other 750 ml Hemodialysis 4000 ml Estimated Blood Loss 300 ml # Bowel Movements 4 Result Diagram: 11/20/17 1125 Imaging Last Impressions Lower Extremity Ultrasound 11/13/17 0000 Signed Impressions: Service Date/Time: Monday, November 13, 2017 07:52 - CONCLUSION: No DVT seen in either leg. Jewel Kaiser MD Hand X-Ray 11/13/17 0000 Signed Impressions: Service Date/Time: Monday, November 13, 2017 10:18 - CONCLUSION: Osteoporosis. Extensive arterial calcifications. 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 No definite evidence of bony destruction or osteomyelitis Jared Upton MD Objective Remarks GENERAL: sitting up on edge of bed. Appears comfortable. again, no change on exam. SKIN: Warm and dry. HEAD: Normocephalic. EYES: No scleral icterus. No injection or drainage. NECK: Supple, trachea midline. No JVD. CARDIOVASCULAR: Regular rate and rhythm without murmurs, gallops, or rubs. RESPIRATORY: Breath sounds equal bilaterally. No accessory muscle use. GASTROINTESTINAL: Abdomen soft, non-tender, nondistended. MUSCULOSKELETAL: No cyanosis, or edema. patient does have dry gangrene of left third finger. No erythema proximally. BACK: Nontender without obvious deformity. No CVA tenderness. Procedures Sp LUE angiogram. A/P Problem List: (1) AV fistula occlusion ICD Code: T82.898A - Other specified complication of vascular prosthetic devices, implants and grafts, initial encounter (2) ESRD (end stage renal disease) on dialysis ICD Code: N18.6 - End stage renal disease; Z99.2 - Dependence on renal dialysis (3) Diabetes mellitus ICD Code: E11.9 - Type 2 diabetes mellitus without complications Assessment and Plan 67-year-old male with a history of end-stage renal disease on hemodialysis Sunday, diabetes, CAD, CHF, hypertension was transferred from [facility] to be evaluated by vascular surgery. AV Fistula occlusion Records from [facility] reviewed and shows occlusion to left av fistula -Vascular Surgery consulted. -Cont ASA and Plavix -Pain management with Morphine IV. -Patient status post angiogram. 11/20 The patient will likely need revascularization of left arm along with closure of AV fistula. Pt scheduled for a L UE bypass, likely brachial-brachial with ligation of failing L AVF on 11/20/17 w/ Dr. Jansen - For Or today. Bacteremia. Positive blood cultures 11/05 at outside hospital with Enterobacter. = 2/2 Discussed with infectious disease. at time of dc, can discharge on Cipro 750 mg by mouth once daily for 28 days. 2/5 Blood cultures negative. LH gangrene, left middle finger necrotic -Consult ID for recommendations -Consult Hand surgery for recommendations = Worked up as above. Appreciate independent beauty consultant assistance. 2 Discussed case with hand surgery. Patient will be scheduled for OR on Sunday. Diabetes, chronic -Accu checks with SSI 2/5 Blood sugars stable. ESRD on Dialysis, MWF -Consult nephrology for recommendations, patient known to Dr. Pegoraro -Continue home calcium acetate 667mg TID = Nephrology following. Appreciate assistance. Dialysis as per nephrology. 11/20 Permacath possibly for am. Chronic loose bowel movements. Likely IBS. Negative C. difficile. Hypertension, chronic -Cont coreg 3.125mg Daily, monitor vitals = 11/18. Systolic blood pressure slightly low overnight with systolics in the 90s. Patient denying any lightheadedness or dizziness. I cleaned some overdiuresis. Continue to monitor. 11/20 Patient's bp in the 90's systolic. As per RN patient on Midodrine at home. It has been restarted by nephrology. Ordered a normal saline IV bolus earlier however Midodrine has been started. Hypothyroid, chronic: Continue home medications //DVT prophylaxis: Heparin SQ Discharge Planning Pending Permacath placement. Pt scheduled for a L UE bypass, likely brachial-brachial with ligation of failing L AVF on 11/20/17 w/ Mat Broussard MD Nov 20, 2017 15:43
[2017-11-20] MEDS ORDERED: RASS Change Order XX ONE (16:00)
[2017-11-20] MEDS ORDERED: DO NOT ADM ANY ANTICOAGULANT DRUGS PRN (16:08)
[2017-11-20] MEDS ORDERED: MIDAZOLAM HCL 2 MG/2 ML VIAL ONE (16:18)
--- NOTE | 2017-11-20 17:12 | RADRPT ---
EXAM DATE/TIME: 11/20/2017 16:03 [facility] COMPARISON: No previous studies available for comparison. INDICATIONS : ET tube placement. MEDICAL HISTORY : None. SURGICAL HISTORY : Pacemaker. ENCOUNTER: Initial ACUITY: 1 day PAIN SCORE: Non-responsive. LOCATION: Bilateral chest FINDINGS: There is an ETT at the level of the clavicles. There is a dual-lead AICD device in place. Lungs are h ypoaerated which accentuates the interstitial markings. Mild bibasilar pleural-parenchymal opacities. Cardiac silhouette is enlarged. Bony thorax is intact. CONCLUSION: 1. ETT good position. 2. Cardiomegaly with mild positive fluid balance. 3. Mild bibasilar pleural-parenchymal opacities. Brian Boateng MD on November 20, 2017 at 17:08 Board Certified Radiologist. This report was verified electronically.
[2017-11-20] MEDS ORDERED: TERBUTALINE INJ 1 MG/ML AMP SQ PRN (17:30)
[2017-11-20] MEDS ORDERED: Hemodialysis Vas Access Cath PRN NS Lock Flush IV FLUSH (17:45)
[2017-11-20] MEDS ORDERED: Hemodialysis Vas Acc Cath PRN Heparin 1000 unit/ml Flush IV FLUSH (17:45)
[2017-11-20] MEDS: cefTRIAXone INJ 2,000 MG in SODIUM CHLORIDE 0.9% INJ 100 ML IV SCH (17:55)
[2017-11-20] MEDS: GABAPENTIN 100 MG CAP PO SCH (18:00)
[2017-11-20] MEDS: PHENYLEPHRINE 40 MG in D5W 500 ML IV PRN (19:30)
[2017-11-20] MEDS: THYROID 60 MG TAB PO SCH (21:00)
[2017-11-20] MEDS: DOCUSATE SODIUM 50 MG/SENNA 8.6 MG TAB PO SCH (21:00)
[2017-11-20] MEDS: PROPOFOL 1000 MG/100 ML IV PRN (21:30)
--- NOTE | 2017-11-20 21:30 | PD.CONS ---
HPI Service Critical Care Medicine Consult Requested By Primary Care Physician Meir Oliver DO History of Present Illness 67-year-old male, has been at [facility] for the last 15 days, transferred to [facility] for vascular evaluation. Patient has known end-stage renal disease and gets hemodialysis every Sunday and Sunday. He had a left upper extremity AV fistula, and it had some problem, so he underwent left upper extremity access revision, left upper extremity distal revascularization and interval ligation, last August 07, 2017. He was discharged, and apparently the fistula was working okay, and during that admission also he had that left middle finger dry gangrene which was felt to be ischemic in nature due to steal syndrome. As an outpatient, his fistula apparently stopped working, so he had a permacath placed in his right IJ. Patient stated that he's had problem on and off with low blood pressure for the last 4 months. The hypotension were getting worse and he ended up getting admitted at [facility] where he stayed for at least 15 days. During that admission, he had some positive blood culture done on November 05 that grew Enterobacter cloaca. Blood culture from November 07 were negative. His permacath was removed on November 07 and the culture of that was negative. Patient underwent L UE bypass brachial-brachial and ligation of the AV fistula. Is scheduled for permacath placement tomorrow morning and remains in the ICU sedated and intubated. Review of Systems ROS Unable to obtain patient is sedated and intubated Past Family Social History Allergies: Coded Allergies: adhesive (Unverified Adverse Reaction, Severe, SKIN BREAKDOWN/ULCERS, ) Uncoded Allergies: MSG (Allergy, Intermediate, bowel problems, 08/02/17) Past Medical History ESRD DM CAD HF. HTN Enlarged liver, and ascites Past Surgical History Pacemaker CABGx4 with mitral valvuloplasty in february 2005 Right fifth toe amputation Right shoulder rotator cuff repair Has had repeated paracentesis to drain his ascites Reported Medications Reported Meds & Active Scripts Active Cipro (Ciprofloxacin HCl) 250 Mg Tab 750 Mg PO DAILY 28 Days Novolog Inj (Insulin Aspart) 100 Unit/Ml Inj 1 Injection SQ ACHS SLIDING SCALE [address] (Aspirin) 81 Mg Tabdr 81 Mg PO DAILY 30 Days Plavix (Clopidogrel Bisulfate) 75 Mg Tab 75 Mg PO DAILY 30 Days Reported Carvedilol 3.125 Mg Tab 3.125 Mg PO BID Coq-10 Tr (Coenzyme Q10 (Ubidecarenone)) 100 Mg Cap 200 Mg PO DAILY Novolin 70-30 Inj (Insulin Human Isoph/Insulin Regular) 1,000 Unit/10 Ml Vial 12 Units SQ BIDAC Morven Thyroid (Thyroid) 60 Mg Tab 60 Mg PO BID Pantoprazole (Pantoprazole Sodium) 20 Mg Tab 20 Mg PO DAILY Bumetanide 2 Mg Tab 2 Mg PO DAILY Gabapentin 100 Mg Cap 100 Mg PO TID Active Ordered Medications Current Medications Medications (Trade) Dose Ordered Sig/Renny Route PRN Reason Start Time Stop Time Status Last Admin Dose Admin Sodium Chloride (NS Flush) 2 ml BID IV FLUSH 11/12/17 21:00 11/20/17 09:00 Acetaminophen (Tylenol) 650 mg Q4H PRN PO TEMP > 100.4 11/12/17 20:00 Ondansetron HCl (Zofran Inj) 4 mg Q6H PRN IVP NAUSEA OR VOMITING 11/12/17 20:00 Naloxone HCl (Narcan Inj) 0.4 mg UNSCH PRN IV PUSH SEE LABEL COMMENTS 11/12/17 20:00 Sennosides (Senokot) 17.2 mg Q12H PRN PO Moderate constipation 11/12/17 20:00 Heparin Sodium (Porcine) (Heparin Inj) 5,000 units Q8HR SQ 11/13/17 06:00 11/20/17 14:00 Levothyroxine Sodium (Synthroid) 125 mcg DAILY@0600 PO 11/13/17 06:00 11/20/17 05:56 Dextrose (D50w (Vial) Inj) 50 ml UNSCH PRN IV PUSH HYPOGLYCEMIA-SEE COMMENTS 11/12/17 23:30 Glucagon (Glucagon Inj) 1 mg UNSCH PRN OTHER HYPOGLYCEMIA-SEE COMMENTS 11/12/17 23:30 Insulin Aspart (NovoLOG SUPPLEMENTAL SCALE) 1 ACHS SLIDING SCALE SQ 11/13/17 08:00 11/20/17 17:00 Calcium Acetate (Phoslo) 667 mg TID PO 11/13/17 09:00 11/18/17 17:03 Aspirin (Ecotrin Ec) 162 mg DAILY PO 11/13/17 09:00 11/20/17 09:25 Clopidogrel Bisulfate (Plavix) 75 mg DAILY PO 11/13/17 09:00 Future Hold 2/2/18 08:23 Bacitracin (Baciguent Oint) 1 applic Q12HR TOPICAL 11/13/17 21:00 11/19/17 20:58 Sodium Chloride 1,000 ml @ 0 mls/hr Q0M PRN OTHER For Prime & Rinse Back 11/13/17 14:09 Heparin Sodium (Porcine) (Heparin Inj) 8,000 units UNSCH PRN IV FLUSH WITH DIALYSIS 11/13/17 14:15 11/15/17 15:23 Sodium Chloride 1,000 ml @ 200 mls/hr Q5H PRN IV WITH DIALYSIS 11/13/17 14:09 Sodium Chloride 1,000 ml @ 0 mls/hr Q0M PRN OTHER WITH DIALYSIS 11/13/17 14:09 Mannitol (Mannitol Inj) 12.5 gm UNSCH PRN IV WITH DIALYSIS 11/13/17 14:15 11/17/17 11:53 Albumin Human 100 ml @ 60 mls/hr UNSCH PRN IV WITH DIALYSIS 11/13/17 14:15 11/17/17 11:54 Sodium Chloride (NS Flush) 5 ml UNSCH PRN IV FLUSH WITH DIALYSIS 11/13/17 14:15 Heparin Sodium (Porcine) (Heparin Inj) UNSCH PRN .XX WITH DIALYSIS 11/13/17 14:15 11/19/17 11:25 Gentamicin Sulfate (Gentamicin Inj) 20 mg UNSCH PRN OTHER WITH DIALYSIS 11/13/17 14:15 11/19/17 11:25 Ondansetron HCl (Zofran Inj) 4 mg UNSCH PRN IV PUSH WITH DIALYSIS 11/13/17 14:15 Acetaminophen (Tylenol) 650 mg UNSCH PRN PO for headach, pain, temp > 101F 11/13/17 14:15 11/18/17 08:40 Diphenhydramine HCl (Benadryl) 25 mg UNSCH PRN PO for hives/itching/anaphylaxis 11/13/17 14:15 Nitroglycerin (Nitrostat Sl) 0.4 mg UNSCH PRN SL CHEST PAIN 11/13/17 14:15 Clonidine (Catapres) 0.1 mg UNSCH PRN PO for BP > 180/100 X 2 readings 11/13/17 14:15 Epoetin Hayden (Epogen Inj) 4,000 units UNSCH PRN IV PUSH WITH DIALYSIS 11/13/17 14:15 11/17/17 11:50 Gelatin (Gelfoam 12 Mm/7 Mm Top) 1 foam UNSCH PRN TOP SEE LABEL COMMENTS 11/13/17 14:15 Ceftriaxone Sodium 2000 mg/ Sodium Chloride 100 ml @ 200 mls/hr Q24H IV 11/13/17 16:00 11/20/17 17:55 Carvedilol (Coreg) 3.125 mg BID PO 11/16/17 21:00 11/19/17 13:55 Pantoprazole Sodium (Protonix) 20 mg DAILY PO 11/17/17 09:00 11/20/17 09:24 Heparin Sodium (Porcine) (Heparin Inj) 5,000 units Q12HR SQ 11/16/17 21:00 11/25/17 12:00 Future Hold 11/18/17 08:31 Lactated Ringer's 1,000 ml @ 30 mls/hr Q24H PRN IV SEE LABEL COMMENTS 11/20/17 05:15 11/23/17 05:14 Sodium Chloride 500 ml @ 30 mls/hr [id number] PRN IV SEE LABEL COMMENTS 11/20/17 05:15 11/23/17 05:14 Metoprolol Tartrate (Lopressor) 25 mg EXHIBIT TECHNICIAN PRN PO SEE LABEL COMMENTS 11/20/17 05:15 11/23/17 05:14 Povidone Iodine (Betadine 5% Antisepsis Kit) 1 applic EXHIBIT TECHNICIAN PRN EACH NARE SEE LABEL COMMENTS 11/20/17 05:15 11/23/17 05:14 Chlorhexidine Gluconate (Chlorhexidine 2% Cloth) 3 pack EXHIBIT TECHNICIAN PRN TOPICAL SEE LABEL COMMENTS 11/20/17 05:15 11/23/17 05:14 Insulin Human Regular (NovoLIN R INJ) See Protocol Table ... EXHIBIT TECHNICIAN PRN SQ SEE PROTOCOL TABLE 11/20/17 05:15 11/23/17 05:14 Midodrine (Proamatine) 5 mg BID@0900,1800 PO 11/21/17 09:00 Cefazolin Sodium/ Dextrose 50 ml @ 100 mls/hr EXHIBIT TECHNICIAN IV 11/20/17 14:45 11/23/17 14:44 Vancomycin HCl 1000 mg/Sodium Chloride 250 ml @ 250 mls/hr EXHIBIT TECHNICIAN IV 11/20/17 14:45 11/23/17 14:44 Gabapentin (Neurontin) 100 mg TID PO 11/20/17 18:00 Thyroid (Morven Thyroid) 60 mg BID PO 11/20/17 21:00 Oxycodone HCl (Roxicodone) 5 mg Q4H PRN PO PAIN SCALE 1 TO 5 11/20/17 15:15 Hydromorphone HCl (Dilaudid) 2 mg Q4H PRN PO PAIN SCALE 6 TO 10 11/20/17 15:15 Morphine Sulfate (Morphine Inj) 2 mg Q1H PRN IV PUSH BREAKTHROUGH PAIN 11/20/17 15:15 Senna/Docusate Sodium (Marleny-Colace) 1 tab BID PO 11/20/17 21:00 Magnesium Hydroxide (Milk Of Magnesia Liq) 30 ml Q12H PRN PO Mild constipation 11/20/17 15:15 Sennosides (Senokot) 17.2 mg Q12H PRN PO Moderate constipation 11/20/17 15:15 Bisacodyl (Dulcolax Supp) 10 mg DAILY PRN RECTAL SEVERE CONSITIPATION 11/20/17 15:15 Lactulose (Lactulose Liq) 30 ml DAILY PRN PO SEVERE CONSITIPATION 11/20/17 15:15 Propofol 100 ml @ 2.841 mls/ hr TITRATE PRN IV SEDATION 11/20/17 16:00 11/21/17 01:56 Phenylephrine HCl 40 mg/Dextrose 500 ml @ 30 mls/hr TITRATE PRN IV Blood Pressure Management 11/20/17 16:00 11/21/17 01:56 Terbutaline Sulfate (Brethine Inj) 1 mg UNSCH PRN SQ FOR EXTRAVASATION PROTOCOL 11/20/17 17:30 Miscellaneous Information ALL NURSING DEPARTME... UNSCH PRN .XX SEE LABEL COMMENTS 11/20/17 16:08 11/21/17 16:07 Sodium Chloride (NS Flush) 5 ml UNSCH PRN IV FLUSH SEE PROTOCOL TABLE 11/20/17 17:45 Heparin Sodium (Porcine) (Heparin Inj) 2,000 units UNSCH PRN IV FLUSH SEE PROTOCOL TABLE 11/20/17 17:45 Family History Father COPD Social History Quit smoking 20 years ago Rare ETOH use No illicit drugs Physical Exam Vital Signs Vital Signs Date Time Temp Pulse Resp B/P (MAP) Pulse Ox O2 Delivery O2 Flow Rate FiO2 11/20/17 21:00 100 45 11/20/17 19:00 60 108/51 (70) 98 Mechanical Ventilator 45 112/47 (68) 11/20/17 19:00 45 18 18:45 60 101/42 (61) 97 Mechanical Ventilator 45 11/20/17 18:30 60 106/59 (75) 97 Mechanical Ventilator 45 11/20/17 18:15 60 104/45 (64) 97 Mechanical Ventilator 45 18 18:00 45 11/20/17 18:00 60 97/46 (63) 98 Mechanical Ventilator 45 101/44 (63) 11/20/17 17:45 60 98/40 (59) 97 Mechanical Ventilator 45 11/20/17 17:37 95 45 11/20/17 17:30 60 94/52 (66) 97 Mechanical Ventilator 45 11/20/17 17:29 97 Nasal Cannula 1.50 11/20/17 17:20 45 11/20/17 17:15 60 96/55 (69) 97 Mechanical Ventilator 60 11/20/17 17:00 60 11/20/17 17:00 60 96/52 (67) 98 Mechanical Ventilator 60 99/42 (61) 11/20/17 16:45 60 104/43 (63) 98 Mechanical Ventilator 60 11/20/17 16:30 60 101/43 (62) 97 Mechanical Ventilator 60 11/20/17 16:15 60 91/52 (65) 97 Mechanical Ventilator 60 97/41 (59) 11/20/17 16:00 60 83/48 (60) 97 Mechanical Ventilator 60 82/37 (52) 11/20/17 16:00 60 11/20/17 15:45 60 11/20/17 15:45 98.1 62 77/35 (49) 97 Mechanical Ventilator 60 71/33 (46) Manual Cuff/Auscultation 11/20/17 15:43 60 84/38 11/20/17 15:40 97 60 11/20/17 12:34 Nasal Cannula 1.50 11/20/17 09:51 94/55 (68) 11/20/17 08:00 97.7 65 20 88/49 (62) 99 11/20/17 08:00 59 11/20/17 07:00 Nasal Cannula 2.00 11/20/17 06:50 96/54 (68) 11/20/17 04:00 97.4 70 16 89/53 (65) 98 11/20/17 04:00 71 11/20/17 00:00 83 11/20/17 00:00 98.4 76 18 106/55 (72) 100 11/20/17 00:00 93 Nasal Cannula 2.00 Physical Exam GENERAL: Sedated and intubated elderly gentleman SKIN: Warm and dry. HEAD: Normocephalic. EYES: No scleral icterus. No injection or drainage. NECK: Supple, trachea midline. No JVD or lymphadenopathy. CARDIOVASCULAR: Regular rate and rhythm without murmurs, gallops, or rubs. RESPIRATORY: Breath sounds equal bilaterally. No accessory muscle use. GASTROINTESTINAL: Abdomen soft, non-tender, nondistended. MUSCULOSKELETAL: No cyanosis, or edema. BACK: Nontender without obvious deformity. NEURO EXAM: Sedated and intubated, pupils brisk and 2 mm bilaterally Laboratory Laboratory Tests Test 11/20/17 11:25 Blood Urea Nitrogen 34 Creatinine 6.84 Random Glucose 83 Total Protein 5.3 Albumin 2.5 Calcium Level 7.9 Alkaline Phosphatase 388 Aspartate Amino Transf (AST/SGOT) 14 Alanine Aminotransferase (ALT/SGPT) 10 Total Bilirubin 0.4 Sodium Level 139 Potassium Level 4.3 Chloride Level 102 Carbon Dioxide Level 25.8 Anion Gap 11 Estimat Glomerular Filtration Rate 8 Date/Time Source Procedure Growth Status 11/15/17 14:30 Blood Other Aerobic Blood Culture - Final NO GROWTH IN 5 DAYS Complete 11/15/17 14:30 Blood Other Anaerobic Blood Culture - Final NO GROWTH IN 5 DAYS Complete Result Diagram: 11/20/17 1125 Septic Shock Reassessment Septic shock perfusion: reassessment completed Assessment and Plan Assessment and Plan Respiratory failure - Postoperative - Permacath placement in the OR tomorrow a.m. - We'll keep intubated and SBT and extubate when planned procedures completed End-stage renal disease - Hemodialysis per nephrology Bilateral upper extremity ischemia, - L UE bypass - plastics/hand surgery - potential L digit treatment later in the week. Diabetes mellitus - Insulin sliding scale Bacteremia - Antibiotics per ID DVT GI prophylaxis - Teds SCDs - Subcutaneous heparin - Pepcid Critical Care: The total critical care time was 35 minutes. Time to perform other separately billable procedures was not included in the critical care time. Filipe Kim MD Nov 20, 2017 9:30 pm
--- NOTE | 2017-11-20 23:54 | RADRPT ---
EXAM DATE/TIME: 11/20/2017 23:22 [facility] COMPARISON: CHEST SINGLE AP, November 20, 2017, 16:03. INDICATIONS : Attempt at left IJ central line, evaluate for pneumothorax. MEDICAL HISTORY : None. SURGICAL HISTORY : Pacemaker. ENCOUNTER: Subsequent ACUITY: 1 week PAIN SCORE: 0/10 LOCATION: Bilateral chest FINDINGS: Rotated and underinflated AP view of the chest demonstrates cardiac silhouette size at the upper limi ts for normal. Left chest wall cardiac pacing device/AICD remains present. Endotracheal tube is prese nt with distal tip at the clavicular head level. Multiple external structures overlie the apex the le ft hemithorax. No pneumothorax is identified. There is blunting of the costophrenic sulci bilaterally with likely atelectasis at the bases. CONCLUSION: 1. The superior aspect of the left hemithorax has multiple overlying structures which could obscure a small pneumothorax. Given this limitation, no pneumothorax is identified. 2. Small bilateral pleural effusions with atelectasis at the bases. Sami Deng MD on November 20, 2017 at 23:51 Board Certified Radiologist. This report was verified electronically.
[2017-11-21] VITALS (12 sets, daily range): BP systolic 100–132; BP diastolic 40–60; PULSE 59–60; RESP 25–31; TEMP 97.5–98.5; O2SAT 97–100
[2017-11-21 01:04] LABS: AUTOMATED NEUTROPHIL # 11.9 TH/MM3 (1.8-7.7); BASOPHIL # 0.2 TH/MM3 (0-0.2); BASOPHIL % 1.2 % (0.0-2.0); EOSINOPHIL # 0.2 TH/MM3 (0-0.4); EOSINOPHIL % 1.2 % (0.0-4.0); HEMATOCRIT 28.1 % (39.0-51.0); HEMOGLOBIN 8.9 GM/DL (13.0-17.0); LYMPH % 6.6 % (9.0-44.0); MEAN CELL VOLUME 94.9 FL (80.0-100.0); MEAN CORPUSCULAR HEMOGLOBIN 29.9 PG (27.0-34.0); MEAN CORPUSCULAR HGB CONC 31.5 % (32.0-36.0); MEAN PLATELET VOLUME 10.2 FL (7.0-11.0); MONO % 13.9 % (0.0-8.0); MONOCYTE # 2.1 TH/MM3 (0-0.9); NEUT % 77.1 % (16.0-70.0); PLATELET COUNT 198 TH/MM3 (150-450); RED BLOOD COUNT 2.97 MIL/MM3 (4.50-5.90); RED CELL DISTRIBUTION WIDTH 18.2 % (11.6-17.2); WHITE BLOOD COUNT 15.4 TH/MM3 (4.0-11.0)
[2017-11-21] MEDS: PROPOFOL 1000 MG/100 ML IV PRN ×4 (01:56→21:49)
[2017-11-21] MEDS: PHENYLEPHRINE 40 MG in D5W 500 ML IV PRN ×2 (01:56→17:51)
[2017-11-21 01:58] LABS: INTERNATIONAL NORMALIZED RATIO 1.2 RATIO; PROTHROMBIN TIME - PATIENT 11.9 SEC (9.8-11.6)
[2017-11-21 04:45] LABS: AUTOMATED NEUTROPHIL # 9.7 TH/MM3 (1.8-7.7); BASOPHIL # 0.2 TH/MM3 (0-0.2); BASOPHIL % 1.2 % (0.0-2.0); EOSINOPHIL # 0.2 TH/MM3 (0-0.4); EOSINOPHIL % 1.5 % (0.0-4.0); HEMOGLOBIN 8.8 GM/DL (13.0-17.0); LYMPH % 7.1 % (9.0-44.0); LYMPHOCYTE # 0.9 TH/MM3 (1.0-4.8); MEAN CELL VOLUME 92.8 FL (80.0-100.0); MEAN CORPUSCULAR HEMOGLOBIN 30.4 PG (27.0-34.0); MEAN CORPUSCULAR HGB CONC 32.8 % (32.0-36.0); MEAN PLATELET VOLUME 10.1 FL (7.0-11.0); MONO % 14.1 % (0.0-8.0); MONOCYTE # 1.8 TH/MM3 (0-0.9); NEUT % 76.1 % (16.0-70.0); PLATELET COUNT 175 TH/MM3 (150-450); RED BLOOD COUNT 2.91 MIL/MM3 (4.50-5.90); WHITE BLOOD COUNT 12.8 TH/MM3 (4.0-11.0)
[2017-11-21 05:03] LABS: INTERNATIONAL NORMALIZED RATIO 1.2 RATIO
[2017-11-21 05:08] LABS: BICARBONATE 22.1 MEQ/L (21.0-32.0); CALCIUM 8.4 MG/DL (8.5-10.1); CREATININE 7.21 MG/DL (0.60-1.30)
[2017-11-21] MEDS ORDERED: SODIUM CHLOR 0.9% 1000 ML INJ 1,000 ML IV ONE (05:30)
--- NOTE | 2017-11-21 05:31 | PD.PROCEDR ---
Procedure Note Procedure Centerline placement A time-out was completed verifying correct patient, procedure, site, positioning , and special equipment if applicable. The patient was placed in a dependent position appropriate for central line placement based on the vein to be cannulated. The patients left groin was prepped and draped in sterile fashion. 1% Lidocaine was used to anesthetize the surrounding skin area. A triple lumen 9 -[place] catheter was introduced into the the common femoral vein using the Seldinger technique and under ultrasound guidance. The catheter was threaded smoothly over the guide wire and appropriate blood return was obtained. Each lumen of the catheter was evacuated of air and flushed with sterile saline. The catheter was then sutured in place to the skin and a sterile dressing applied. Perfusion to the extremity distal to the point of catheter insertion was checked and found to be adequate. Estimated Blood Loss: 1ml The patient tolerated the procedure well and there were no complications. Filipe Kim MD Nov 21, 2017 5:31 am
[2017-11-21] MEDS: HEPARIN SODIUM - SQ 10,000 UNITS/ML VIAL SQ SCH ×3 (05:44→21:32)
[2017-11-21] MEDS: LEVOTHYROXINE SODIUM 125 MCG TAB PO SCH (05:50)
--- NOTE | 2017-11-21 07:56 | PD.VS.PN ---
Subjective POD #: 1 Procedure(s): L brachial-brachial bypass, ligation of AVF Subjective/Hospital Course Pt remained intubated and mild pressor requirement According to RNs, when sedation lightened, MILLS Weaning vent Objective Vitals/I&O Date Time Temp Pulse Resp B/P (MAP) Pulse Ox O2 Delivery O2 Flow Rate FiO2 11/21/17 04:00 59 112/44 11/21/17 03:49 97 40 11/21/17 03:00 59 11/21/17 03:00 97 Mechanical Ventilator 45 11/21/17 03:00 98.1 59 30 107/58 (74) 97 127/48 (74) 11/21/17 01:56 59 126/48 11/20/17 23:00 100 Mechanical Ventilator 45 11/20/17 23:00 59 11/20/17 23:00 98.0 68 28 110/62 (78) 100 134/51 (78) 11/20/17 21:50 99 45 11/20/17 21:30 59 122/73 11/20/17 21:00 45 11/20/17 21:00 100 45 18 20:30 59 99/47 11/20/17 20:00 97.9 63 26 115/67 (83) 100 115/56 (75) 11/20/17 20:00 100 Mechanical Ventilator 45 11/20/17 19:30 63 120/52 11/20/17 19:00 60 108/51 (70) 98 Mechanical Ventilator 45 112/47 (68) 11/20/17 19:00 59 11/20/17 19:00 45 11/20/17 18:45 60 101/42 (61) 97 Mechanical Ventilator 45 18 18:30 60 106/59 (75) 97 Mechanical Ventilator 45 18 18:15 60 104/45 (64) 97 Mechanical Ventilator 45 18 18:00 45 18 18:00 60 97/46 (63) 98 Mechanical Ventilator 45 101/44 (63) 18 17:45 60 98/40 (59) 97 Mechanical Ventilator 45 18 17:37 95 45 18 17:30 60 94/52 (66) 97 Mechanical Ventilator 45 18 17:29 97 Nasal Cannula 1.50 2/6/18 17:20 45 11/20/17 17:15 60 96/55 (69) 97 Mechanical Ventilator 60 11/20/17 17:00 60 11/20/17 17:00 60 96/52 (67) 98 Mechanical Ventilator 60 99/42 (61) 11/20/17 16:45 60 104/43 (63) 98 Mechanical Ventilator 60 11/20/17 16:30 60 101/43 (62) 97 Mechanical Ventilator 60 11/20/17 16:15 60 91/52 (65) 97 Mechanical Ventilator 60 97/41 (59) 11/20/17 16:00 60 83/48 (60) 97 Mechanical Ventilator 60 82/37 (52) 11/20/17 16:00 60 11/20/17 15:45 60 11/20/17 15:45 98.1 62 77/35 (49) 97 Mechanical Ventilator 60 71/33 (46) Manual Cuff/Auscultation 11/20/17 15:43 60 84/38 11/20/17 15:40 97 60 11/20/17 12:34 Nasal Cannula 1.50 11/20/17 09:51 94/55 (68) 11/20/17 08:00 97.7 65 20 88/49 (62) 99 11/20/17 08:00 59 11/21/17 11/21/17 11/21/17 07:00 15:00 23:00 Intake Total 830 ml Output Total 150 ml Balance 680 ml Exam: L UE dressing with mild serosanguinous drainage Hand warm strong Ulnar signal and radial signal; + palmar arch signal Laboratory Laboratory Tests Test 11/20/17 11:25 11/21/17 00:30 11/21/17 01:40 11/21/17 04:30 Blood Urea Nitrogen 34 37 Creatinine 6.84 7.21 Random Glucose 83 93 Total Protein 5.3 Albumin 2.5 Calcium Level 7.9 8.4 Alkaline Phosphatase 388 Aspartate Amino Transf (AST/SGOT) 14 Alanine Aminotransferase (ALT/SGPT) 10 Total Bilirubin 0.4 Sodium Level 139 138 Potassium Level 4.3 4.2 Chloride Level 102 101 Carbon Dioxide Level 25.8 22.1 Anion Gap 11 15 Estimat Glomerular Filtration Rate 8 8 White Blood Count 15.4 12.8 Red Blood Count 2.97 2.91 Hemoglobin 8.9 8.8 Hematocrit 28.1 27.0 Mean Corpuscular Volume 94.9 92.8 Mean Corpuscular Hemoglobin 29.9 30.4 Mean Corpuscular Hemoglobin Concent 31.5 32.8 Red Cell Distribution Width 18.2 18.0 Platelet Count 198 175 Mean Platelet Volume 10.2 10.1 Neutrophils (%) (Auto) 77.1 76.1 Lymphocytes (%) (Auto) 6.6 7.1 Monocytes (%) (Auto) 13.9 14.1 Eosinophils (%) (Auto) 1.2 1.5 Basophils (%) (Auto) 1.2 1.2 Neutrophils # (Auto) 11.9 9.7 Lymphocytes # (Auto) 1.0 0.9 Monocytes # (Auto) 2.1 1.8 Eosinophils # (Auto) 0.2 0.2 Basophils # (Auto) 0.2 0.2 CBC Comment DIFF FINAL DIFF FINAL Differential Comment Prothrombin Time 11.9 12.0 Prothromb Time International Ratio 1.2 1.2 Activated Partial Thromboplast Time 28.9 Fibrinogen 265 Test 11/21/17 05:32 Blood Gas Puncture Site ART LINE Blood Gas Patient Temperature 98.6 Blood Gas HCO3 20 Blood Gas Base Excess -3.1 Blood Gas Oxygen Saturation 97 Arterial Blood pH 7.47 Arterial Blood Partial Pressure CO2 28 Arterial Blood Partial Pressure O2 190 Arterial Blood Oxygen Content 13.8 Arterial Blood Carboxyhemoglobin 1.4 Arterial Blood Methemoglobin 1.3 Blood Gas Hemoglobin 9.8 Oxygen Delivery Device VENTILATOR Blood Gas Ventilator Setting AC12/500/5 PEEP Blood Gas Inspired Oxygen 40 Date/Time Source Procedure Growth Status 11/15/17 14:30 Blood Other Aerobic Blood Culture - Final NO GROWTH IN 5 DAYS Complete 218 14:30 Blood Other Anaerobic Blood Culture - Final NO GROWTH IN 5 DAYS Complete Assessment and Plan Plan POD#1 s/p L UE bypass, access ligation 1. Wean vent to extubation 2. Ok to go to OR with plastics for digit amputation 3. Needs plavix resumed for recent coronary stent 4. Wean morenita for SBP > 90 5. dressing down tomorrow (POD#2) 6. Needs tunneled HD catheter Discharge Planning from vascular surgery standpoint, likely 2 days Issa Jansen MD Nov 21, 2017 07:56
[2017-11-21] MEDS: INSULIN ASPART SUPPLEMENTAL SCALE SQ SCH ×4 (08:00→21:00)
[2017-11-21] MEDS: SODIUM CHLORIDE 0.9% FLUSH 10 ML FLUSH IV FLUSH SCH ×2 (08:05→21:00)
--- NOTE | 2017-11-21 08:28 | MP ---
cc: SKYLER JANSEN MD DATE OF SURGERY 11/20/2017 PREOPERATIVE DIAGNOSIS Left upper extremity access related hand ischemia, patent fistula. POSTOPERATIVE DIAGNOSIS Left upper extremity access related hand ischemia, patent fistula. PROCEDURE 1. Left brachial-brachial bypass using vein with interposition graft. 2. Access ligation. MEDICATIONS Skyler Jansen MD [employer] Skyler Moraes ANESTHESIA General INDICATION Mr. Hernandez is a 67-year gentleman who is quite debilitated who has a left upper extremity access that is patent, but somewhat sluggish on previous imaging. He also has had a history of access related hand ischemia and had a DRILL and this is known to be occluded. He is taken off room for brachial artery reconstruction and access ligation. DESCRIPTION OF PROCEDURE Informed consent obtained from the patient. He was taken to the operating room and placed supine on the operating room table and appropriate time-out was taken to ensure the patient's identity, operative site and planned procedure. The administration of a gram of vancomycin was initiated prior to the skin incision and will be discontinued after a single preoperative dose. Everyone in the room agreed with the time out and we proceeded. Vancomycin was chosen because of the patient's end-stage renal disease. His left arm and left leg were prepped and draped and his previous incision along the left arm was opened with a 10 blade, carried down through the subcutaneous tissue with electrocautery. Dense scar tissue was encountered. The median nerve was identified and dissected free and carefully protected. The brachial artery was identified and encircled with a vessel loop where it still had a pulse, therefore proximal to the arteriovenous fistula takeoff. We then dissected in the proximal forearm brachial artery and indeed found what appeared to be a small radial takeoff. Both these were encircled with a vessel loop. Tedious dissection was then performed to connect these two aspects of the brachial artery. The previous fistula was identified, encircled with a vessel loop, ligated with 3-0 silk and transected and the proximal end was oversewn with 3-0 silk suture. The previous DRILL bypass was similarly encountered and ligated. Once the brachial artery was completely freed up, the brachial vein was identified next to this and resected for several centimeters. Proximal and distal control were obtained with hemoclips and the vein was flushed and noted be 2-3 mm. The patient systemically heparinized with 3000 of IV heparin. Proximal control of the distal upper arm brachial artery and proximal forearm brachial artery was obtained with profunda clamps and the entire brachial artery was resected and both ends of the brachial artery as well as the vein were spatulated and the vein was sewn end-to-end with running 5-0 Prolene suture proximally and end-to-end with a running 6-0 Prolene distally. At the completion, the clamps were released. The bypass and noted to be patent. There was a nice Doppler signal in the wrist that was graft dependent. The wound was irrigated, infiltrated with Marcaine made hemostatic. The heparin was reversed with protamine. The wound was closed with 2-0 Polysorb, 3-0 Polysorb and skin priya. The sponge and needle counts were correct at the end of the case. I was present, scrubbed and performed the entire procedure. MD RHONDA Dueñas/EVENS /6:26 PM /8:00 AM
[2017-11-21] MEDS: RESP: ALBUTEROL 2.5 MG/IPRATROPIUM 0.5 MG NEB (PRN) NEB (08:47)
[2017-11-21] MEDS: CALCIUM ACETATE 667 MG CAP PO SCH ×3 (09:06→17:09)
[2017-11-21] MEDS: MIDODRINE 5 MG TAB PO SCH ×2 (09:07→17:30)
[2017-11-21] MEDS: GABAPENTIN 100 MG CAP PO SCH ×3 (09:07→17:09)
[2017-11-21] MEDS: ASPIRIN EC 81 MG TABEC PO SCH (09:07)
[2017-11-21] MEDS: CARVEDILOL 3.125 MG TAB PO SCH ×2 (09:07→21:00)
[2017-11-21] MEDS: DOCUSATE SODIUM 50 MG/SENNA 8.6 MG TAB PO SCH ×2 (09:07→21:32)
[2017-11-21] MEDS: PANTOPRAZOLE SOD 20 MG DELAYED RELEASE TAB PO SCH (09:07)
--- NOTE | 2017-11-21 09:09 | HHI.CCPN ---
Subjective Remarks/Hospital Course 67-year-old male, has been at [facility] for the last 15 days, transferred to [facility] for vascular evaluation. Patient has known end-stage renal disease and gets hemodialysis every Sunday and Sunday. He had a left upper extremity AV fistula, and it had some problem, so he underwent left upper extremity access revision, left upper extremity distal revascularization and interval ligation, last August 07, 2017. He was discharged, and apparently the fistula was working okay, and during that admission also he had that left middle finger dry gangrene which was felt to be ischemic in nature due to steal syndrome. As an outpatient, his fistula apparently stopped working, so he had a permacath placed in his right IJ. Patient stated that he's had problem on and off with low blood pressure for the last 4 months. The hypotension were getting worse and he ended up getting admitted at [facility] where he stayed for at least 15 days. During that admission, he had some positive blood culture done on November 05 that grew Enterobacter cloaca. Blood culture from November 07 were negative. His permacath was removed on November 07 and the culture of that was negative. Patient underwent L UE bypass brachial-brachial and ligation of the AV fistula. Is scheduled for permacath placement tomorrow morning and remains in the ICU sedated and intubated. Subjective: 11/21: Afebrile .The patient remains intubated and sedated. Plan for permacath placement this a.m.. Will resume ventilator weaning postoperatively. Objective Vital Signs Date Time Temp Pulse Resp B/P (MAP) Pulse Ox O2 Delivery O2 Flow Rate FiO2 11/21/17 08:40 100 40 11/21/17 07:00 Mechanical Ventilator 11/21/17 07:00 60 11/21/17 07:00 98.5 30 109/57 (74) 132/49 (76) 11/20/17 17:29 1.50 Intake and Output 11/21/17 11/21/17 11/22/17 08:00 16:00 00:00 Intake Total 830 ml Output Total 150 ml Balance 680 ml Result Diagram: 11/21/17 0430 11/21/17 0430 Other Results Laboratory Tests Test 11/21/17 05:32 Blood Gas Puncture Site ART LINE Blood Gas Patient Temperature 98.6 Blood Gas HCO3 20 mmol/L (22-26) Blood Gas Base Excess -3.1 mmol/L (-2-2) Blood Gas Oxygen Saturation 97 % (90-100) Arterial Blood pH 7.47 (7.380-7.420) Arterial Blood Partial Pressure CO2 28 mmHg (38-42) Arterial Blood Partial Pressure O2 190 mmHg (61-120) Arterial Blood Oxygen Content 13.8 Vol % (12.0-20.0) Arterial Blood Carboxyhemoglobin 1.4 % (0-4) Arterial Blood Methemoglobin 1.3 % (0-2) Blood Gas Hemoglobin 9.8 G/DL (12.0-16.0) Oxygen Delivery Device VENTILATOR Blood Gas Ventilator Setting AC12/500/5 PEEP Blood Gas Inspired Oxygen 40 % Imaging Last Impressions Chest X-Ray 11/20/17 0000 Signed Impressions: Service Date/Time: Monday, November 20, 2017 23:22 - CONCLUSION: 1. The superior aspect of the left hemithorax has multiple overlying structures which could obscure a small pneumothorax. Given this limitation, no pneumothorax is identified. 2. Small bilateral pleural effusions with atelectasis at the bases. Sami Deng MD Lower Extremity Ultrasound 11/13/17 0000 Signed Impressions: Service Date/Time: Monday, November 13, 2017 07:52 - CONCLUSION: No DVT seen in either leg. Jewel Kaiser MD Hand X-Ray 11/13/17 0000 Signed Impressions: Service Date/Time: Monday, November 13, 2017 10:18 - CONCLUSION: Osteoporosis. Extensive arterial calcifications. 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 No definite evidence of bony destruction or osteomyelitis Jared Upton MD Objective Remarks GENERAL: Sedated and intubated elderly gentleman SKIN: Warm and dry. HEAD: Normocephalic. EYES: No scleral icterus. No injection or drainage. NECK: Supple, trachea midline. No JVD or lymphadenopathy. CARDIOVASCULAR: Regular rate and rhythm without murmurs, gallops, or rubs. RESPIRATORY: Breath sounds equal bilaterally. No accessory muscle use. GASTROINTESTINAL: Abdomen soft, non-tender, protuberant ,nondistended. MUSCULOSKELETAL: No cyanosis, or edema. BACK: Nontender without obvious deformity. NEURO EXAM: Sedated and intubated, pupils brisk and 2 mm bilaterally Procedures Sp LUE angiogram. 11/21 scheduled permacath placement A/P Assessment and Plan Respiratory failure - Postoperative - Permacath placement in the OR tomorrow a.m. - Remain intubated and CXR, CPAP trials SBT and extubate when planned procedures completed -Duo nebs every 4 hours when necessary for wheezing End-stage renal disease - Hemodialysis per nephrology Bilateral upper extremity ischemia, - L UE bypass - plastics/hand surgery - potential L digit treatment later in the week. Diabetes mellitus - Insulin sliding scale Bacteremia - Antibiotics per ID DVT GI prophylaxis - Teds SCDs - Subcutaneous heparin - Pepcid Critical Care:my billing statement This patient remains critically ill with one or more organ systems which are or may become a threat to life. I have spent in excess of 30 minutes discontinuously in the care and management of this patient. This time is exclusive of procedures, and includes, but is not limited to, evaluation of the patient, review of the medical record, discussions with family, consultants, nursing staff, or respiratory therapy, and documentation in the medical record. Physician Jeanine Langston MD Nov 21, 2017 09:09
[2017-11-21] MEDS: BACITRACIN TOP OINT 15 GM TUBE TOPICAL SCH ×2 (09:29→21:33)
[2017-11-21] MEDS: THYROID 60 MG TAB PO SCH ×2 (09:29→21:49)
--- NOTE | 2017-11-21 10:23 | HHI.IDPN ---
Subjective Subjective Remarks Patient is a 67-year-old male, has been at [facility] for the last 15 days, transferred to [facility] for vascular evaluation. Patient has known end-stage renal disease and gets hemodialysis every Sunday and Sunday. He had a left upper extremity AV fistula, and it had some problem, so he underwent left upper extremity access revision, left upper extremity distal revascularization and interval ligation, last August 07, 2017. He was discharged, and apparently the fistula was working okay, and during that admission also he had that left middle finger dry gangrene which was felt to be ischemic in nature due to steal syndrome. As an outpatient, his fistula apparently stopped working, so he had a permacath placed in his right IJ. Patient stated that he's had problem on and off with low blood pressure for the last 4 months. The hypotension were getting worse and he ended up getting admitted at [facility] where he stayed for at least 15 days. During that admission, he had some positive blood culture done on November 05 that grew Enterobacter cloaca. Blood culture from November 07 were negative. His permacath was removed on November 07 and the culture of that was negative. Patient was apparently getting IV cefepime, and there was an infectious disease specialist monitoring him for his infection. Patient stated that he's had some reaction to the cefepime and he describes it as burning sensation. Patient is currently afebrile. There was evaluation of his AV fistula which shows thrombosis of his DRIL. He has now been transferred to [facility] for vascular evaluation. Infectious disease consultation has been requested to evaluate for sepsis. Notes reviewed D/W RN Has OR yesterday - not able to be extubated Had brachial-brachial bypass with vein, and ligation of AVF and DRIL He is sedated on the vent; possible extubation today On Neosynephrine For permacath placement today Temps ok Fup BC negative so far Antibiotics Current Medications Rocephin Medications (Trade) Dose Ordered Sig/Renny Route Start Time Stop Time Status Last Admin (NS Flush) 2 ml BID IV FLUSH 11/12/17 21:00 11/20/17 09:00 (Tylenol) 650 mg Q4H PRN PO 11/12/17 20:00 (Zofran Inj) 4 mg Q6H PRN IVP 11/12/17 20:00 (Narcan Inj) 0.4 mg UNSCH PRN IV PUSH 11/12/17 20:00 (Senokot) 17.2 mg Q12H PRN PO 11/12/17 20:00 (Heparin Inj) 5,000 units Q8HR SQ 11/13/17 06:00 11/20/17 14:00 (Synthroid) 125 mcg DAILY@0600 PO 11/13/17 06:00 11/21/17 05:50 (D50w (Vial) Inj) 50 ml UNSCH PRN IV PUSH 11/12/17 23:30 (Glucagon Inj) 1 mg UNSCH PRN OTHER 11/12/17 23:30 (NovoLOG SUPPLEMENTAL SCALE) 1 ACHS SLIDING SCALE SQ 11/13/17 08:00 11/20/17 17:00 (Phoslo) 667 mg TID PO 11/13/17 09:00 11/21/17 09:06 (Ecotrin Ec) 162 mg DAILY PO 11/13/17 09:00 11/21/17 09:07 (Plavix) 75 mg DAILY PO 11/13/17 09:00 Future Hold 11/16/17 08:23 (Baciguent Oint) 1 applic Q12HR TOPICAL 11/13/17 21:00 11/21/17 09:29 Sodium Chloride 1,000 ml @ 0 mls/hr Q0M PRN OTHER 11/13/17 14:09 (Heparin Inj) 8,000 units UNSCH PRN IV FLUSH 11/13/17 14:15 11/15/17 15:23 Sodium Chloride 1,000 ml @ 200 mls/hr Q5H PRN IV 11/13/17 14:09 Sodium Chloride 1,000 ml @ 0 mls/hr Q0M PRN OTHER 11/13/17 14:09 (Mannitol Inj) 12.5 gm UNSCH PRN IV 11/13/17 14:15 11/17/17 11:53 Albumin Human 100 ml @ 60 mls/hr UNSCH PRN IV 11/13/17 14:15 11/17/17 11:54 (NS Flush) 5 ml UNSCH PRN IV FLUSH 11/13/17 14:15 (Heparin Inj) UNSCH PRN .XX 11/13/17 14:15 11/19/17 11:25 (Gentamicin Inj) 20 mg UNSCH PRN OTHER 11/13/17 14:15 11/19/17 11:25 (Zofran Inj) 4 mg UNSCH PRN IV PUSH 11/13/17 14:15 (Tylenol) 650 mg UNSCH PRN PO 11/13/17 14:15 11/18/17 08:40 (Benadryl) 25 mg UNSCH PRN PO 11/13/17 14:15 (Nitrostat Sl) 0.4 mg UNSCH PRN SL 11/13/17 14:15 (Catapres) 0.1 mg UNSCH PRN PO 11/13/17 14:15 (Epogen Inj) 4,000 units UNSCH PRN IV PUSH 11/13/17 14:15 11/17/17 11:50 (Gelfoam 12 Mm/7 Mm Top) 1 foam UNSCH PRN TOP 11/13/17 14:15 Ceftriaxone Sodium 2000 mg/ Sodium Chloride 100 ml @ 200 mls/hr Q24H IV 11/13/17 16:00 11/20/17 17:55 (Coreg) 3.125 mg BID PO 11/16/17 21:00 11/21/17 09:07 (Protonix) 20 mg DAILY PO 11/17/17 09:00 11/21/17 09:07 (Heparin Inj) 5,000 units Q12HR SQ 11/16/17 21:00 11/25/17 12:00 Future Hold 11/18/17 08:31 Sodium Chloride 500 ml @ 30 mls/hr [id number] PRN IV 11/20/17 05:15 11/23/17 05:14 (Lopressor) 25 mg SCALE MANAGER PRN PO 11/20/17 05:15 11/23/17 05:14 (Betadine 5% Antisepsis Kit) 1 applic SCALE MANAGER PRN EACH NARE 11/20/17 05:15 11/23/17 05:14 (Chlorhexidine 2% Cloth) 3 pack SCALE MANAGER PRN TOPICAL 11/20/17 05:15 11/23/17 05:14 (NovoLIN R INJ) See Protocol Table ... SCALE MANAGER PRN SQ 11/20/17 05:15 11/23/17 05:14 (Proamatine) 5 mg BID@0900,1800 PO 11/21/17 09:00 11/21/17 09:07 Cefazolin Sodium/ Dextrose 50 ml @ 100 mls/hr SCALE MANAGER IV 11/20/17 14:45 11/23/17 14:44 Vancomycin HCl 1000 mg/Sodium Chloride 250 ml @ 250 mls/hr SCALE MANAGER IV 11/20/17 14:45 11/23/17 14:44 (Neurontin) 100 mg TID PO 11/20/17 18:00 11/21/17 09:07 ([place] Thyroid) 60 mg BID PO 11/20/17 21:00 11/21/17 09:29 (Roxicodone) 5 mg Q4H PRN PO 11/20/17 15:15 (Dilaudid) 2 mg Q4H PRN PO 11/20/17 15:15 (Morphine Inj) 2 mg Q1H PRN IV PUSH 11/20/17 15:15 (Marleny-Colace) 1 tab BID PO 11/20/17 21:00 11/21/17 09:07 (Milk Of Magnesia Liq) 30 ml Q12H PRN PO 11/20/17 15:15 (Senokot) 17.2 mg Q12H PRN PO 11/20/17 15:15 (Dulcolax Supp) 10 mg DAILY PRN RECTAL 11/20/17 15:15 (Lactulose Liq) 30 ml DAILY PRN PO 11/20/17 15:15 Propofol 100 ml @ 2.841 mls/ hr TITRATE PRN IV 11/20/17 16:00 11/21/17 09:30 Phenylephrine HCl 40 mg/Dextrose 500 ml @ 30 mls/hr TITRATE PRN IV 11/20/17 16:00 11/21/17 01:56 (Brethine Inj) 1 mg UNSCH PRN SQ 11/20/17 17:30 Miscellaneous Information ALL NURSING DEPARTME... UNSCH PRN .XX 11/20/17 16:08 11/21/17 16:07 (NS Flush) 5 ml UNSCH PRN IV FLUSH 11/20/17 17:45 (Heparin Inj) 2,000 units UNSCH PRN IV FLUSH 11/20/17 17:45 (Duoneb Neb) 1 ampule Q4HR NEB PRN NEB 11/21/17 08:45 11/21/17 08:47 Lines Vascath R groin Past Medical History ESRD DM CAD HF. HTN Enlarged liver, and ascites Past Surgical History Pacemaker CABGx4 with mitral valvuloplasty in february 2005 Right fifth toe amputation Right shoulder rotator cuff repair Has had repeated paracentesis to drain his ascites Allergies: Coded Allergies: adhesive (Unverified Adverse Reaction, Severe, SKIN BREAKDOWN/ULCERS, ) Uncoded Allergies: MSG (Allergy, Intermediate, bowel problems, 08/02/17) Objective . Vital Signs Date Time Temp Pulse Resp B/P (MAP) Pulse Ox O2 Delivery O2 Flow Rate FiO2 11/21/17 08:40 100 40 11/21/17 07:00 100 Mechanical Ventilator 40 11/21/17 07:00 60 11/21/17 07:00 98.5 59 30 109/57 (74) 100 132/49 (76) 11/21/17 07:00 40 11/21/17 04:00 59 112/44 11/21/17 03:49 97 40 11/21/17 03:00 59 11/21/17 03:00 97 Mechanical Ventilator 45 11/21/17 03:00 98.1 59 30 107/58 (74) 97 127/48 (74) 11/21/17 01:56 59 126/48 11/20/17 23:00 100 Mechanical Ventilator 45 11/20/17 23:00 59 11/20/17 23:00 98.0 68 28 110/62 (78) 100 134/51 (78) 11/20/17 21:50 99 45 11/20/17 21:30 59 122/73 11/20/17 21:00 45 11/20/17 21:00 100 45 11/20/17 20:30 59 99/47 11/20/17 20:00 97.9 63 26 115/67 (83) 100 115/56 (75) 11/20/17 20:00 100 Mechanical Ventilator 45 11/20/17 19:30 63 120/52 11/20/17 19:00 60 108/51 (70) 98 Mechanical Ventilator 45 112/47 (68) 11/20/17 19:00 59 11/20/17 19:00 45 11/20/17 18:45 60 101/42 (61) 97 Mechanical Ventilator 45 11/20/17 18:30 60 106/59 (75) 97 Mechanical Ventilator 45 218 18:15 60 104/45 (64) 97 Mechanical Ventilator 45 11/20/17 18:00 45 18 18:00 60 97/46 (63) 98 Mechanical Ventilator 45 101/44 (63) 2 17:45 60 98/40 (59) 97 Mechanical Ventilator 45 11/20/17 17:37 95 45 11/20/17 17:30 60 94/52 (66) 97 Mechanical Ventilator 45 11/20/17 17:29 97 Nasal Cannula 1.50 11/20/17 17:20 45 11/20/17 17:15 60 96/55 (69) 97 Mechanical Ventilator 60 11/20/17 17:00 60 11/20/17 17:00 60 96/52 (67) 98 Mechanical Ventilator 60 99/42 (61) 11/20/17 16:45 60 104/43 (63) 98 Mechanical Ventilator 60 11/20/17 16:30 60 101/43 (62) 97 Mechanical Ventilator 60 11/20/17 16:15 60 91/52 (65) 97 Mechanical Ventilator 60 97/41 (59) 11/20/17 16:00 60 83/48 (60) 97 Mechanical Ventilator 60 82/37 (52) 11/20/17 16:00 60 11/20/17 15:45 60 11/20/17 15:45 98.1 62 77/35 (49) 97 Mechanical Ventilator 60 71/33 (46) Manual Cuff/Auscultation 11/20/17 15:43 60 84/38 11/20/17 15:40 97 60 11/20/17 12:34 Nasal Cannula 1.50 11/21/17 11/21/17 11/22/17 15:00 23:00 07:00 Intake Total 1000 ml Balance 1000 ml IV Total 1000 ml . Laboratory Tests Test 11/21/17 00:30 11/21/17 04:30 White Blood Count 15.4 TH/MM3 12.8 TH/MM3 Red Blood Count 2.97 MIL/MM3 2.91 MIL/MM3 Hemoglobin 8.9 GM/DL 8.8 GM/DL Hematocrit 28.1 % 27.0 % Mean Corpuscular Volume 94.9 FL 92.8 FL Mean Corpuscular Hemoglobin 29.9 PG 30.4 PG Mean Corpuscular Hemoglobin Concent 31.5 % 32.8 % Red Cell Distribution Width 18.2 % 18.0 % Platelet Count 198 TH/MM3 175 TH/MM3 Mean Platelet Volume 10.2 FL 10.1 FL Neutrophils (%) (Auto) 77.1 % 76.1 % Lymphocytes (%) (Auto) 6.6 % 7.1 % Monocytes (%) (Auto) 13.9 % 14.1 % Eosinophils (%) (Auto) 1.2 % 1.5 % Basophils (%) (Auto) 1.2 % 1.2 % Neutrophils # (Auto) 11.9 TH/MM3 9.7 TH/MM3 Lymphocytes # (Auto) 1.0 TH/MM3 0.9 TH/MM3 Monocytes # (Auto) 2.1 TH/MM3 1.8 TH/MM3 Eosinophils # (Auto) 0.2 TH/MM3 0.2 TH/MM3 Basophils # (Auto) 0.2 TH/MM3 0.2 TH/MM3 CBC Comment DIFF FINAL DIFF FINAL Differential Comment Laboratory Tests Test 11/20/17 11:25 11/21/17 04:30 Blood Urea Nitrogen 34 MG/DL 37 MG/DL Creatinine 6.84 MG/DL 7.21 MG/DL Random Glucose 83 MG/DL 93 MG/DL Total Protein 5.3 GM/DL Albumin 2.5 GM/DL Calcium Level 7.9 MG/DL 8.4 MG/DL Alkaline Phosphatase 388 U/L Aspartate Amino Transf (AST/SGOT) 14 U/L Alanine Aminotransferase (ALT/SGPT) 10 U/L Total Bilirubin 0.4 MG/DL Sodium Level 139 MEQ/L 138 MEQ/L Potassium Level 4.3 MEQ/L 4.2 MEQ/L Chloride Level 102 MEQ/L 101 MEQ/L Carbon Dioxide Level 25.8 MEQ/L 22.1 MEQ/L Anion Gap 11 MEQ/L 15 MEQ/L Estimat Glomerular Filtration Rate 8 ML/MIN 8 ML/MIN Imaging Lower Extremity Ultrasound 11/13/17 0000 Signed Impressions: Service Date/Time: Monday, November 13, 2017 07:52 - CONCLUSION: No DVT seen in either leg. Jewel Kaiser MD Hand X-Ray 11/13/17 0000 Signed Impressions: Service Date/Time: Monday, November 13, 2017 10:18 - CONCLUSION: Osteoporosis. Extensive arterial calcifications. 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 No definite evidence of bony destruction or osteomyelitis Jared Upton MD Physical Exam GENERAL: Sedated on the vent, NAD SKIN: Cool and dry. No rash EYES: Alicia conjunctiva. No petechia or hemorrhage. No scleral icterus. EARS, NOSE AND THROAT: Orally intubated NECK: Trachea midline, supple and not tender CARDIOVASCULAR: Regular rate and rhythm. Has systolic murmur over L precordium and base of the heart RESPIRATORY: Clear to auscultation. No rales, wheezing or rhonchi. Decreased at both bases ABDOMEN: Soft, and non-tender, bowel sounds present and hypoactive. No guarding. No rebound. Liver edge palpable on R side of abdomen, not tender. EXTREMITIES: No clubbing, cyanosis. Has edema of both feet. Stable lesions in both hands. Dressing in his LUE wirh some blood NEUROLOGICAL: Sedated PSYCHIATRIC: Unable to assess LINE: New line L groin Previous permacath site RIJ base, with dry and intact dressings R groin vascath in place, with dry dressing Assessment & Plan Remarks IMPRESSION Enterobacter bacteremia, BC 11/05 (+), ?source - permacath C/S negative (?due to previous Abx) - concern with infected thrombus LUE AVF - ?other endovascular focus Thrombosis DRIL LUE AVF S/P Bypass LUE and ligation of AVF and DRIL ESRD on HD MWF Ascites, ?primary liver problem or other etiology LMF dry gangrene Diarrhea, better - C diff negative Respiratory failure, post surgery - hopefully extubate soon RECOMMENDATION Continue IV Rocephin to cover Enterobacter Once extubated switch to Cipro 750 daily and give till December 18 Hopefully extubate soon Plans for surgery on his finger ?this week I will be off Nov 22- Other ID MD available if needed during my absence D/W Loraine Harris MD Nov 21, 2017 10:23
[2017-11-21] MEDS ORDERED: EPINEPHrine HCL (1:10,000) 1 MG/10 ML SYRINGE ONE (11:28)
--- NOTE | 2017-11-21 11:32 | HHI.NPPN ---
Subjective History of Present Illness Patient is a 67-year-old male with a history of end-stage renal disease on hemodialysis Sunday/Sunday/ Sunday, diabetes, CAD, CHF, hypertension was transferred from [facility] to be evaluated by vascular surgery. Patient states he was admitted to [facility] because he had low blood pressure readings at home. AV fistula has not been functioning or used for 6- 8 weeks and they have been using a permacath for dialysis. Permacath has been removed secondary to possible infection and vas cath has been placed. He has been treated with cefepime IV. Last dialysis was Sunday and 1.5 L removed. Patient has a necrotic left middle finger that patient states has been going on for the last 12 weeks. Additional Remarks Patient is sedated on ventilator s/p L UE bypass, ligation of AVF and DRIL (Kathleen Olguin) Review of Systems Genitourinary Remarks (Kathleen Olguin) Objective Data Data 11/21/17 11/22/17 19:00 07:00 Intake Total 1000 ml Balance 1000 ml IV Total 1000 ml Vital Signs Date Time Temp Pulse Resp B/P (MAP) Pulse Ox O2 Delivery O2 Flow Rate FiO2 11/21/17 08:40 100 40 11/21/17 07:00 100 Mechanical Ventilator 40 11/21/17 07:00 60 11/21/17 07:00 98.5 59 30 109/57 (74) 100 132/49 (76) 11/21/17 07:00 40 11/21/17 04:00 59 112/44 11/21/17 03:49 97 40 11/21/17 03:00 59 11/21/17 03:00 97 Mechanical Ventilator 45 11/21/17 03:00 98.1 59 30 107/58 (74) 97 127/48 (74) 11/21/17 01:56 59 126/48 11/20/17 23:00 100 Mechanical Ventilator 45 11/20/17 23:00 59 11/20/17 23:00 98.0 68 28 110/62 (78) 100 134/51 (78) 11/20/17 21:50 99 45 11/20/17 21:30 59 122/73 11/20/17 21:00 45 11/20/17 21:00 100 45 2/18 20:30 59 99/47 2/18 20:00 97.9 63 26 115/67 (83) 100 115/56 (75) 18 20:00 100 Mechanical Ventilator 45 2/18 19:30 63 120/52 2/18 19:00 60 108/51 (70) 98 Mechanical Ventilator 45 112/47 (68) 11/20/17 19:00 59 2/18 19:00 45 2/18 18:45 60 101/42 (61) 97 Mechanical Ventilator 45 218 18:30 60 106/59 (75) 97 Mechanical Ventilator 45 218 18:15 60 104/45 (64) 97 Mechanical Ventilator 45 218 18:00 45 218 18:00 60 97/46 (63) 98 Mechanical Ventilator 45 101/44 (63) 11/20/17 17:45 60 98/40 (59) 97 Mechanical Ventilator 45 11/20/17 17:37 95 45 18 17:30 60 94/52 (66) 97 Mechanical Ventilator 45 18 17:29 97 Nasal Cannula 1.50 11/20/17 17:20 45 18 17:15 60 96/55 (69) 97 Mechanical Ventilator 60 218 17:00 60 2/18 17:00 60 96/52 (67) 98 Mechanical Ventilator 60 99/42 (61) 11/20/17 16:45 60 104/43 (63) 98 Mechanical Ventilator 60 18 16:30 60 101/43 (62) 97 Mechanical Ventilator 60 18 16:15 60 91/52 (65) 97 Mechanical Ventilator 60 97/41 (59) 11/20/17 16:00 60 83/48 (60) 97 Mechanical Ventilator 60 82/37 (52) 11/20/17 16:00 60 2/18 15:45 60 218 15:45 98.1 62 77/35 (49) 97 Mechanical Ventilator 60 71/33 (46) Manual Cuff/Auscultation 11/20/17 15:43 60 84/38 2 15:40 97 60 218 12:34 Nasal Cannula 1.50 (Kathleen Olguin) -: 11/21/17 0430 11/21/17 0430 Imaging Last Impressions Chest X-Ray 11/20/17 0000 Signed Impressions: Service Date/Time: Monday, November 20, 2017 23:22 - CONCLUSION: 1. The superior aspect of the left hemithorax has multiple overlying structures which could obscure a small pneumothorax. Given this limitation, no pneumothorax is identified. 2. Small bilateral pleural effusions with atelectasis at the bases. Sami Deng MD Lower Extremity Ultrasound 11/13/17 0000 Signed Impressions: Service Date/Time: Monday, November 13, 2017 07:52 - CONCLUSION: No DVT seen in either leg. Jewel Kaiser MD Hand X-Ray 11/13/17 0000 Signed Impressions: Service Date/Time: Monday, November 13, 2017 10:18 - CONCLUSION: Osteoporosis. Extensive arterial calcifications. 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 No definite evidence of bony destruction or osteomyelitis Jared Upton MD (Kathleen Olguin) Physical Exam General Appearance: Well Developed, Well Nourished, No Acute Distress, Comfortable (Kathleen Olguin) Appearance Remarks Intubated and sedated. (Kim Santos MD) Eyes Eye Exam: Pupils Equal (Kathleen Olguin) Throat Throat Exam: Oral Mucosa Stark & Moist (Kathleen Olguin) Pulmonary Resp Exam: Clear Bilaterally, Breath Sounds Equal, No Distress (Kathleen Olguin) Cardiology CV Exam: Regular (Kathleen Olguin) Gastrointestinal/Abdomen GI Exam: Soft, Non-Tender, Non-Distended (Kathleen Olguin) Musculoskeletal MS Exam: Good Strength (Kathleen Olguin) Integumentary Skin Remarks necrotic area on tip on left hand middle finger (Kathleen Olguin) Extremeties Extremities Exam: Trace Edema (Kathleen Olguin) Neurologic Neuro Exam: Alert (Kathleen Olguin) Neuro Exam: Unresponsive, Sedated (Kim Santos MD) Psychiatric Psych Exam: Appropriate Responses (Kathleen Olguin) Assessment/Plan Discussed Condition With: Spouse Assessment Summary: End Stage Renal Disease Problem List: (1) ESRD (end stage renal disease) on dialysis ICD Codes: N18.6 - End stage renal disease; Z99.2 - Dependence on renal dialysis Plan: Dialysis MWF s/p L UE bypass 2/7 ligation of AVF and DRIL Sedated on ventilator Plan for perma cath placement today and removal of vas cath Has abd. distension, with possible ascites. Edematous Hypotension with midodrine added yesterday on low dose phenylephrine weaning Surgery this week for left hand HD scheduled for today. (2) Gangrene of finger of left hand ICD Codes: I96 - Gangrene, not elsewhere classified Plan: necrotic area on left hand middle finger Hand surgery consulted surgery planned for this week (3) AV fistula occlusion ICD Codes: T82.898A - Other specified complication of vascular prosthetic devices, implants and grafts, initial encounter Plan: s/p L UE bypass 2/7 ligation of AVF and DRIL (4) Diabetes mellitus ICD Codes: E11.9 - Type 2 diabetes mellitus without complications Plan: Maintain BS between 140mg/dl to 180 mg/dl (Kathleen Olguin) Problem List: (1) ESRD (end stage renal disease) on dialysis ICD Codes: N18.6 - End stage renal disease; Z99.2 - Dependence on renal dialysis Plan: Dialysis MWF s/p L UE bypass 2/7 ligation of AVF and DRIL Sedated on ventilator Plan for perma cath placement today and removal of vas cath Has abd. distension, with possible ascites. Edematous Hypotension with midodrine added yesterday on low dose phenylephrine weaning Surgery of the left hand done 11/20. Has Left Brachial-Brachial bypass and ligation of access. HD scheduled for today, also to get PermCath. Weaning as tolerated. Patient seen and examined, agree with above. (2) Gangrene of finger of left hand ICD Codes: I96 - Gangrene, not elsewhere classified Plan: necrotic area on left hand middle finger Hand surgery consulted surgery planned for this week (3) AV fistula occlusion ICD Codes: T82.898A - Other specified complication of vascular prosthetic devices, implants and grafts, initial encounter Plan: s/p L UE bypass 2/7 ligation of AVF and DRIL (4) Diabetes mellitus ICD Codes: E11.9 - Type 2 diabetes mellitus without complications Plan: Maintain BS between 140mg/dl to 180 mg/dl (Kim Santos MD) Kathleen Olguin Nov 21, 2017 11:32 Kim Santos MD Nov 21, 2017 11:38
--- NOTE | 2017-11-21 14:52 | RADRPT ---
EXAM DATE/TIME: 11/21/2017 11:42 [facility] COMPARISON: No previous studies available for comparison. INDICATIONS : Patient with known ESRD on dialysis.AV fistula not working and needs perm cath MEDICAL HISTORY : 1. ESRD 2. DM 3. CAD 4. HF 5. HTN 6. enlarged liver with ascites SURGICAL HISTORY : 1. AV fistula 2. Pace maker 3. CABG x4 4. toe amputation 5. rt shoulder surgery 6. paracentesis ENCOUNTER: Initial ACUITY: 1 week PAIN SCORE: Nonresponsive. FLUORO TIME: 0.5 minutes IMAGE SERIES: 1 ACCESS: Right internal jugular vein SEDATION: Prophylactic antibiotics were administered with appropriate pre-procedure timing. Vancomycin within 2 hours of procedure, Ancef (or alternative) within 1 hour of procedure. DEVICE: 1. 15 Romansh dual lumen 23 cm Hand II Plus catheter PROCEDURE : 1. Ultrasound-guided venipuncture. 2. PermaCath placement. 3. Conscious sedation with continuous EKG and oximetry monitoring. The risks, benefits and alternatives to the procedure were explained and verbal and written consent w as obtained. The site was prepped in sterile fashion. Full sterile technique was used, including ca p, mask, sterile gloves and gown and a large sterile sheet. Hand hygiene and 2% chlorhexidine and/or betadine/alcohol prep was utilized per protocol for cutaneous antisepsis. Sterile gel and sterile p robe cover were utilized for ultrasound guidance. The skin and subcutaneous tissues were infiltrated with local anesthetic solution. With ultrasound and fluoroscopic guidance a dermatotomy was created over the prescribed vein. A micr opuncture set was used to access the targeted vein and serial dilatation was performed to accept the prescribed length catheter. A subcutaneous tunnel was created in a retrograde fashion the catheter w as pulled through the tunnel. The catheter was flushed and assembled and locked with heparin. The c atheter was sutured in place. Conscious sedation was performed with the prescribed dosages and duration as above in the presence of an independent trained radiology nurse to assist in the monitoring of the patient. EKG and oximetry remained stable throughout the procedure. The patient tolerated the procedure well and there were n o complications. The patient was sent to post anesthesia recovery in stable condition. CONCLUSION: Uncomplicated PermaCath placement as above. James Mike MD on November 21, 2017 at 14:50 Board Certified Radiologist. This report was verified electronically.
[2017-11-21] MEDS: cefTRIAXone INJ 2,000 MG in SODIUM CHLORIDE 0.9% INJ 100 ML IV SCH (17:10)
--- NOTE | 2017-11-21 20:06 | RADRPT ---
EXAM DATE/TIME: 11/21/2017 19:21 [facility] COMPARISON: CHEST SINGLE AP, November 20, 2017, 23:22. INDICATIONS : Central line placement. MEDICAL HISTORY : None. SURGICAL HISTORY : Pacemaker. ENCOUNTER: Subsequent ACUITY: 1 week PAIN SCORE: 5/10 LOCATION: Bilateral chest FINDINGS: Status post placement of a right-sided central line. The central line appears to be in good position. There is no pneumothorax. There is a pacemaker overlying the left chest. There is an endotracheal tu be and NG tube in place. There appears to be a mild infiltrate in the right lung base. Otherwise no s ignificant changes compared to the prior study. CONCLUSION: Right-sided central line in place. No pneumothorax. Jasson Tenorio MD on November 21, 2017 at 20:03 Board Certified Radiologist. This report was verified electronically.
[2017-11-22] VITALS (14 sets, daily range): BP systolic 101–140; BP diastolic 40–76; PULSE 59–60; RESP 25–30; TEMP 97.8–98.6; O2SAT 95–100
[2017-11-22] MEDS: PROPOFOL 1000 MG/100 ML IV PRN (03:36)
[2017-11-22] MEDS: PHENYLEPHRINE 40 MG in D5W 500 ML IV PRN ×2 (03:37→17:54)
[2017-11-22 04:32] LABS: HEMATOCRIT 28.9 % (39.0-51.0); HEMOGLOBIN 9.4 GM/DL (13.0-17.0); MEAN CELL VOLUME 92.9 FL (80.0-100.0); MEAN CORPUSCULAR HEMOGLOBIN 30.2 PG (27.0-34.0); MEAN CORPUSCULAR HGB CONC 32.5 % (32.0-36.0); PLATELET COUNT 164 TH/MM3 (150-450); RED BLOOD COUNT 3.11 MIL/MM3 (4.50-5.90); RED CELL DISTRIBUTION WIDTH 18.3 % (11.6-17.2); WHITE BLOOD COUNT 10.4 TH/MM3 (4.0-11.0)
[2017-11-22 05:03] LABS: BICARBONATE 23.4 MEQ/L (21.0-32.0); CALCIUM 7.5 MG/DL (8.5-10.1); CREATININE 5.4 MG/DL (0.60-1.30); MAGNESIUM 1.9 MG/DL (1.5-2.5); PHOSPHORUS 3.2 MG/DL (2.5-4.9)
[2017-11-22] MEDS: LEVOTHYROXINE SODIUM 125 MCG TAB PO SCH (06:05)
[2017-11-22] MEDS: HEPARIN SODIUM - SQ 10,000 UNITS/ML VIAL SQ SCH ×3 (06:05→21:06)
--- NOTE | 2017-11-22 07:08 | HHI.CCPN ---
Subjective Remarks/Hospital Course 67-year-old male, has been at [facility] for the last 15 days, transferred to [facility] for vascular evaluation. Patient has known end-stage renal disease and gets hemodialysis every Sunday and Sunday. He had a left upper extremity AV fistula, and it had some problem, so he underwent left upper extremity access revision, left upper extremity distal revascularization and interval ligation, last August 07, 2017. He was discharged, and apparently the fistula was working okay, and during that admission also he had that left middle finger dry gangrene which was felt to be ischemic in nature due to steal syndrome. As an outpatient, his fistula apparently stopped working, so he had a permacath placed in his right IJ. Patient stated that he's had problem on and off with low blood pressure for the last 4 months. The hypotension were getting worse and he ended up getting admitted at [facility] where he stayed for at least 15 days. During that admission, he had some positive blood culture done on November 05 that grew Enterobacter cloaca. Blood culture from November 07 were negative. His permacath was removed on November 07 and the culture of that was negative. Patient underwent L UE bypass brachial-brachial and ligation of the AV fistula. Is scheduled for permacath placement tomorrow morning and remains in the ICU sedated and intubated. Subjective: 11/21: Afebrile .The patient remains intubated and sedated. Plan for permacath placement this a.m.. Will resume ventilator weaning postoperatively. 11/22: Attempted CPAP trials postoperatively yesterday, unsuccessful. Patient continues on phenylephrine currently a 60 mics/minute. Propofol discontinued Precedex infusion initiated CPAP trials are reinitiated this a.m. with plans for SBT later this morning and possible extubation. Objective Vital Signs Date Time Temp Pulse Resp B/P (MAP) Pulse Ox O2 Delivery O2 Flow Rate FiO2 11/22/17 04:12 96 40 11/22/17 03:37 59 104/50 11/22/17 03:00 Mechanical Ventilator 11/22/17 03:00 97.9 30 11/20/17 17:29 1.50 Intake and Output 11/22/17 11/22/17 11/23/17 08:00 16:00 00:00 Intake Total 770 ml Balance 770 ml Result Diagram: 11/22/1740911/22/17409 Imaging Last Impressions Chest X-Ray 11/20/17 0000 Signed Impressions: Service Date/Time: Monday, November 20, 2017 23:22 - CONCLUSION: 1. The superior aspect of the left hemithorax has multiple overlying structures which could obscure a small pneumothorax. Given this limitation, no pneumothorax is identified. 2. Small bilateral pleural effusions with atelectasis at the bases. Sami Deng MD Lower Extremity Ultrasound 11/13/17 0000 Signed Impressions: Service Date/Time: Monday, November 13, 2017 07:52 - CONCLUSION: No DVT seen in either leg. Jewel Kaiser MD Hand X-Ray 11/13/17 0000 Signed Impressions: Service Date/Time: Monday, November 13, 2017 10:18 - CONCLUSION: Osteoporosis. Extensive arterial calcifications. 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 No definite evidence of bony destruction or osteomyelitis Jared Upton MD Objective Remarks GENERAL: Sedated and intubated elderly gentleman SKIN: Warm and dry. HEAD: Normocephalic. EYES: No scleral icterus. No injection or drainage. NECK: Supple, trachea midline. No JVD or lymphadenopathy. CARDIOVASCULAR: Regular rate and rhythm without murmurs, gallops, or rubs. RESPIRATORY: Breath sounds equal bilaterally. No accessory muscle use. GASTROINTESTINAL: Abdomen soft, non-tender, protuberant ,nondistended. MUSCULOSKELETAL: No cyanosis, or edema. Noted dry gangrene left hand middle digit BACK: Nontender without obvious deformity. NEURO EXAM: Sedated and intubated, pupils brisk and 2 mm bilaterally Procedures 11/20 Sp LUE angiogram. 11/21 permacath placement A/P Assessment and Plan Respiratory failure - Postoperative - Begin CPAP trials, obtain SBT with plans for extubation -Duo nebs every 4 hours when necessary for wheezing -Obtain ABG End-stage renal disease - Hemodialysis per nephrology, last dialyzed 11/21, 2 L removed - Permacath placement 11/21 Bilateral upper extremity ischemia, - L UE bypass - plastics/hand surgery - potential L digit treatment later in the week. Diabetes mellitus - Insulin sliding scale Bacteremia - Antibiotics per ID DVT GI prophylaxis - Teds SCDs - Subcutaneous heparin - Pepcid Critical Care:my billing statement This patient remains critically ill with one or more organ systems which are or may become a threat to life. I have spent in excess of 30 minutes discontinuously in the care and management of this patient. This time is exclusive of procedures, and includes, but is not limited to, evaluation of the patient, review of the medical record, discussions with family, consultants, nursing staff, or respiratory therapy, and documentation in the medical record. Physician Jeanine Langston MD Nov 22, 2017 07:08
[2017-11-22] MEDS: DEXMEDETOMIDINE INJ 200 MCG in SODIUM CHLORIDE 0.9% INJ 50 ML IV PRN ×2 (07:39→13:00)
[2017-11-22] MEDS: INSULIN ASPART SUPPLEMENTAL SCALE SQ SCH ×4 (07:49→21:00)
[2017-11-22] MEDS: SODIUM CHLORIDE 0.9% FLUSH 10 ML FLUSH IV FLUSH SCH ×2 (07:49→21:07)
--- NOTE | 2017-11-22 07:49 | RADRPT ---
EXAM DATE/TIME: 11/22/2017 07:12 [facility] COMPARISON: CHEST SINGLE AP, November 21, 2017, 19:21. INDICATIONS : Evaluate for respiratory failure. MEDICAL HISTORY : None. SURGICAL HISTORY : Pacemaker. ENCOUNTER: Subsequent ACUITY: 2 days PAIN SCORE: Non-responsive. LOCATION: Bilateral chest FINDINGS: A single view of the chest demonstrates minimal right basal density and pleural effusion. Endotrachea l tube, nasogastric tube and right-sided vascular catheter unchanged. Left-sided defibrillator unchan ged. Cardiomegaly.. The cardiomediastinal contours are unremarkable. Osseous structures are intact. CONCLUSION: Right basilar density and probable small pleural effusion, not significantly changed. Jewel Kaiser MD on November 22, 2017 at 7:47 Board Certified Radiologist. This report was verified electronically.
[2017-11-22] MEDS: THYROID 60 MG TAB PO SCH ×2 (08:37→21:05)
[2017-11-22] MEDS: CALCIUM ACETATE 667 MG CAP PO SCH ×3 (08:37→17:28)
[2017-11-22] MEDS: GABAPENTIN 100 MG CAP PO SCH ×3 (08:37→17:28)
[2017-11-22] MEDS: CARVEDILOL 3.125 MG TAB PO SCH ×2 (08:37→21:00)
[2017-11-22] MEDS: DOCUSATE SODIUM 50 MG/SENNA 8.6 MG TAB PO SCH ×2 (08:37→21:06)
[2017-11-22] MEDS: PANTOPRAZOLE SOD 20 MG DELAYED RELEASE TAB PO SCH (08:37)
[2017-11-22] MEDS: ASPIRIN EC 81 MG TABEC PO SCH (08:37)
[2017-11-22] MEDS: BACITRACIN TOP OINT 15 GM TUBE TOPICAL SCH ×2 (08:38→21:06)
[2017-11-22] MEDS: MIDODRINE 5 MG TAB PO SCH ×2 (08:46→17:54)
--- NOTE | 2017-11-22 08:52 | PD.VS.PN ---
Subjective POD #: 2 Procedure(s): L brachial-brachial bypass, ligation of AVF Subjective/Hospital Course Pt intubated Potentially weaning vent today UE warm Objective Vitals/I&O Date Time Temp Pulse Resp B/P (MAP) Pulse Ox O2 Delivery O2 Flow Rate FiO2 11/22/17 08:22 35 11/22/17 08:22 97 35 11/22/17 07:30 97 40 11/22/17 07:00 97.8 59 25 127/65 (85) 98 138/55 (82) 11/22/17 07:00 98 Mechanical Ventilator 40 11/22/17 07:00 59 11/22/17 07:00 40 11/22/17 04:12 96 40 11/22/17 03:37 59 104/50 11/22/17 03:00 97 Mechanical Ventilator 40 11/22/17 03:00 40 11/22/17 03:00 59 11/22/17 03:00 97.9 59 30 104/50 (68) 97 104/43 (63) 11/22/17 01:40 95 40 11/21/17 23:00 97.9 59 25 109/60 (76) 99 108/43 (64) 11/21/17 23:00 99 Mechanical Ventilator 40 11/21/17 23:00 59 11/21/17 23:00 40 11/21/17 22:20 98 40 11/21/17 20:00 99 50 11/21/17 19:00 97.8 59 31 101/56 (71) 98 106/40 (62) 11/21/17 19:00 59 11/21/17 19:00 60 11/21/17 19:00 98 Mechanical Ventilator 60 11/21/17 17:51 59 107/41 11/21/17 17:17 40 11/21/17 15:22 98 40 11/21/17 15:00 59 11/21/17 15:00 40 11/21/17 15:00 99 Mechanical Ventilator 40 11/21/17 15:00 97.5 59 30 106/57 (73) 99 100/43 (62) 11/21/17 13:15 100 40 11/21/17 13:15 50 11/21/17 11:00 60 11/21/17 11:00 40 11/21/17 11:00 97.7 59 29 108/57 (74) 100 116/42 (66) 11/21/17 11:00 100 Mechanical Ventilator 40 11/22/17 11/22/17 11/22/17 07:00 15:00 23:00 Intake Total 770 ml Balance 770 ml Exam: GENERAL: Pt intubated SKIN: UE Warm and dry CARDIOVASCULAR: NSR on CM + Doppler signals LEFT radial/ulnar/rodas arch Incisions: Left Upper extremity incision well approximated w/ staple closure Incision w/o R/D/S/O Laboratory Laboratory Tests Test 11/22/17 04:10 11/22/17 08:07 White Blood Count 10.4 Red Blood Count 3.11 Hemoglobin 9.4 Hematocrit 28.9 Mean Corpuscular Volume 92.9 Mean Corpuscular Hemoglobin 30.2 Mean Corpuscular Hemoglobin Concent 32.5 Red Cell Distribution Width 18.3 Platelet Count 164 Mean Platelet Volume 10.0 Blood Urea Nitrogen 24 Creatinine 5.40 Random Glucose 115 Calcium Level 7.5 Phosphorus Level 3.2 Magnesium Level 1.9 Sodium Level 137 Potassium Level 3.8 Chloride Level 99 Carbon Dioxide Level 23.4 Anion Gap 15 Estimat Glomerular Filtration Rate 11 Blood Gas Puncture Site ANDREW Blood Gas Patient Temperature 98.6 Blood Gas HCO3 21 Blood Gas Base Excess -1.5 Blood Gas Oxygen Saturation 97 Arterial Blood pH 7.54 Arterial Blood Partial Pressure CO2 25 Arterial Blood Partial Pressure O2 206 Arterial Blood Oxygen Content 12.8 Arterial Blood Carboxyhemoglobin 1.4 Arterial Blood Methemoglobin 1.2 Blood Gas Hemoglobin 9.0 Oxygen Delivery Device VENTILATOR Blood Gas Ventilator Setting A/C12/500/PEEP5 Blood Gas Inspired Oxygen 40 Date/Time Source Procedure Growth Status 11/15/17 14:30 Blood Other Aerobic Blood Culture - Final NO GROWTH IN 5 DAYS Complete 11/15/17 14:30 Blood Other Anaerobic Blood Culture - Final NO GROWTH IN 5 DAYS Complete Assessment and Plan Plan POD# 2 S/p L UE bypass, access ligation UE warm Pt with sufficient perfusion L UE + L UE distal pulses heard via Doppler Removed post operative dressing Plan Wean vent to extubation May apply a dry dressing to Left arm Renetta Gaviria NP [facility] [phone] Discharge Planning from vascular surgery standpoint, likely 2 days Renetta Gaviria Nov 22, 2017 08:52
--- NOTE | 2017-11-22 09:41 | HHI.NPPN ---
Subjective History of Present Illness Patient is a 67-year-old male with a history of end-stage renal disease on hemodialysis Sunday/Sunday/ Sunday, diabetes, CAD, CHF, hypertension was transferred from [facility] to be evaluated by vascular surgery. Patient states he was admitted to [facility] because he had low blood pressure readings at home. AV fistula has not been functioning or used for 6- 8 weeks and they have been using a permacath for dialysis. Permacath has been removed secondary to possible infection and vas cath has been placed. He has been treated with cefepime IV. Last dialysis was Sunday and 1.5 L removed. Patient has a necrotic left middle finger that patient states has been going on for the last 12 weeks. Additional Remarks On ventilator CPAP trial underway (Kathleen Olguin) Review of Systems Genitourinary Remarks (Kathleen Olguin) Objective Data Data Vital Signs Date Time Temp Pulse Resp B/P (MAP) Pulse Ox O2 Delivery O2 Flow Rate FiO2 11/22/17 08:22 35 11/22/17 08:22 97 35 11/22/17 07:30 97 40 11/22/17 07:00 97.8 59 25 127/65 (85) 98 138/55 (82) 11/22/17 07:00 98 Mechanical Ventilator 40 11/22/17 07:00 59 11/22/17 07:00 40 11/22/17 04:12 96 40 11/22/17 03:37 59 104/50 11/22/17 03:00 97 Mechanical Ventilator 40 11/22/17 03:00 40 11/22/17 03:00 59 11/22/17 03:00 97.9 59 30 104/50 (68) 97 104/43 (63) 11/22/17 01:40 95 40 11/21/17 23:00 97.9 59 25 109/60 (76) 99 108/43 (64) 11/21/17 23:00 99 Mechanical Ventilator 40 11/21/17 23:00 59 11/21/17 23:00 40 11/21/17 22:20 98 40 11/21/17 20:00 99 50 11/21/17 19:00 97.8 59 31 101/56 (71) 98 106/40 (62) 11/21/17 19:00 59 11/21/17 19:00 60 11/21/17 19:00 98 Mechanical Ventilator 60 11/21/17 17:51 59 107/41 11/21/17 17:17 40 11/21/17 15:22 98 40 11/21/17 15:00 59 11/21/17 15:00 40 11/21/17 15:00 99 Mechanical Ventilator 40 11/21/17 15:00 97.5 59 30 106/57 (73) 99 100/43 (62) 11/21/17 13:15 100 40 11/21/17 13:15 50 11/21/17 11:00 60 11/21/17 11:00 40 11/21/17 11:00 97.7 59 29 108/57 (74) 100 116/42 (66) 11/21/17 11:00 100 Mechanical Ventilator 40 (Kathleen Olguin) -: 11/22/17 0410 11/22/17 0410 Imaging Last Impressions Chest X-Ray 11/22/17 0000 Signed Impressions: Service Date/Time: November 07:12 - CONCLUSION: Right basilar density and probable small pleural effusion, not significantly changed. Jewel Kaiser MD Catheter Placement X-Ray 11/21/17 1554 Signed Impressions: Service Date/Time: Tuesday, November 21, 2017 11:42 - CONCLUSION: Uncomplicated PermaCath placement as above. James Mike MD Lower Extremity Ultrasound 11/13/17 0000 Signed Impressions: Service Date/Time: Monday, November 13, 2017 07:52 - CONCLUSION: No DVT seen in either leg. Jewel Kaiser MD Hand X-Ray 11/13/17 0000 Signed Impressions: Service Date/Time: Monday, November 13, 2017 10:18 - CONCLUSION: Osteoporosis. Extensive arterial calcifications. 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 No definite evidence of bony destruction or osteomyelitis Jared Utpon MD Tubes & Lines: Perma-Cath (Kathleen Olguin) Physical Exam General Appearance: Well Developed, Well Nourished, No Acute Distress, Comfortable (Kathleen Olguin) Eyes Eye Exam: Pupils Equal (Kathleen Olguin) Throat Throat Exam: Oral Mucosa [place] & Moist (Kathleen Olguin) Pulmonary Resp Exam: Clear Bilaterally, Breath Sounds Equal, No Distress Resp Remarks vented (Kathleen Olguin) Cardiology CV Exam: Regular (Kathleen Olguin) Gastrointestinal/Abdomen GI Exam: Soft, Non-Tender, Bowel Sounds Present (Kathleen Olguin) Integumentary Skin Remarks necrotic area on tip on left hand middle finger (Kathleen Olguin) Extremeties Extremities Exam: Moderate Edema (Kathleen Olguin) Neurologic Neuro Exam: Unresponsive, Sedated (Kathleen Olguin) Assessment/Plan Discussed Condition With: Spouse Assessment Summary: End Stage Renal Disease Problem List: (1) ESRD (end stage renal disease) on dialysis ICD Codes: N18.6 - End stage renal disease; Z99.2 - Dependence on renal dialysis Plan: Dialysis MWF s/p L UE bypass 2/6 ligation of AVF and DRIL On ventilator CPAP trail underway Perma cath placement yesterday HD yesterday with 2 liters removed Labs reviewed. Calcium low protein corrected calcium ordered Anemia Epogen with dialysis Dialysis for tomorrow (2) Gangrene of finger of left hand ICD Codes: I96 - Gangrene, not elsewhere classified Plan: necrotic area on left hand middle finger Hand surgery consulted surgery planned for this week (3) AV fistula occlusion ICD Codes: T82.898A - Other specified complication of vascular prosthetic devices, implants and grafts, initial encounter Plan: s/p L UE bypass 2/6 ligation of AVF and DRIL (4) Diabetes mellitus ICD Codes: E11.9 - Type 2 diabetes mellitus without complications Plan: Maintain BS between 140mg/dl to 180 mg/dl (Kathleen Olguin) Problem List: (1) ESRD (end stage renal disease) on dialysis ICD Codes: N18.6 - End stage renal disease; Z99.2 - Dependence on renal dialysis Plan: Dialysis MWF s/p L UE bypass 2/6 ligation of AVF and DRIL On ventilator CPAP trail underway Perma cath placement 11/21. HD yesterday with 2 liters removed Labs reviewed. Calcium low protein corrected calcium ordered Anemia Epogen with dialysis Dialysis for tomorrow. Patient seen and examined, agree with above. For Paracentesis, on CPAP now. weaning as tolerated. D/W the . (2) Gangrene of finger of left hand ICD Codes: I96 - Gangrene, not elsewhere classified Plan: necrotic area on left hand middle finger Hand surgery consulted surgery planned for this week (3) AV fistula occlusion ICD Codes: T82.898A - Other specified complication of vascular prosthetic devices, implants and grafts, initial encounter Plan: s/p L UE bypass 2/6 ligation of AVF and DRIL (4) Diabetes mellitus ICD Codes: E11.9 - Type 2 diabetes mellitus without complications Plan: Maintain BS between 140mg/dl to 180 mg/dl (Kim Santos MD) Kathleen Olguin Nov 22, 2017 09:41 Kim Santos MD Nov 22, 2017 15:15
[2017-11-22] MEDS ORDERED: ALBUMIN 25% INJ 100 ML IV ONE (10:45)
[2017-11-22 10:48] LABS: CALCIUM-PROTEIN CORRECTED 9.3 MG/DL (8.5-10.1)
[2017-11-22 14:32] LABS: HEMATOCRIT 27.7 % (39.0-51.0); HEMOGLOBIN 9.1 GM/DL (13.0-17.0); MEAN CELL VOLUME 92.9 FL (80.0-100.0); MEAN CORPUSCULAR HEMOGLOBIN 30.6 PG (27.0-34.0); MEAN PLATELET VOLUME 10.2 FL (7.0-11.0); PLATELET COUNT 143 TH/MM3 (150-450); RED BLOOD COUNT 2.98 MIL/MM3 (4.50-5.90); RED CELL DISTRIBUTION WIDTH 18.2 % (11.6-17.2); WHITE BLOOD COUNT 9.2 TH/MM3 (4.0-11.0)
[2017-11-22 14:59] LABS: TOTAL PROTEIN 5.2 GM/DL (6.4-8.2)
--- NOTE | 2017-11-22 16:49 | RADRPT ---
EXAM DATE/TIME: 11/22/2017 15:20 [facility] COMPARISON: EXTERNAL COMPARISON: US VENOUS MAPPING,LOW EXT,BILAT, November 13, 2017, 7:59. [facility], CT ABDOMEN & PELVIS W/ O CONTRAST, Jun 06 2016, CT ABDOMEN W/O CONTRAST, February 07, 2010. INDICATIONS : Ascites. MEDICAL HISTORY : Myocardial infarction. Congestive heart failure. Hypothyroidism. Hearing loss. Neuropathy. Afib. Hype rtension. Sleep apnea. Renal disease. Liver disease. Arthritis. Diabetes. Depression. Anxiety. Skin c ancer. Blood transfusion. SURGICAL HISTORY : CABG Pacemaker. Right rotator cuff. Internal defibrillator. Mitral valve replacement. Abdominal absc ess drainage. Bilateral cataract removal. Removal of sternum wires. Skin cancer removal. ENCOUNTER: Initial ACUITY: 1 day PAIN SCORE: Non-responsive LOCATION: Right lower quadrant FLUID: Total volume of 6,600 cc of cloudy, white fluid was removed. Fluid was sent to lab for ordered studies. Post procedure scanning reveals no hematoma or other complication. TECHNIQUE: 1. Ultrasound guidance for abdominal paracentesis. 2. Paracentesis. The risks, benefits, and alternatives to ultrasound guided paracentesis were explained to the patient in detail including the risk of bleeding and infection. Written and verbal informed consent was obt ained. With the patient on the ultrasound table, ultrasound imaging was used to select the most appropriate approach for paracentesis. Overlying skin was prepped and draped in the usual sterile fashion and wi th a local anesthetic, a dermatotomy was made with an 11 blade scalpel. A 6 [place] [id number] ca theter was introduced into the peritoneal cavity and fluid was collected. The patient tolerated the procedure well and left the ultrasound suite in stable condition. CONCLUSION: Uncomplicated ultrasound guided paracentesis. 6 L of chylous appearing fluid was removed. Taj Oden MD on November 22, 2017 at 16:46 Board Certified Radiologist. This report was verified electronically.
[2017-11-22] MEDS ORDERED: LIDOCAINE HCL 1% 20 ML VIAL ONE (16:58)
[2017-11-22] MEDS ORDERED: ALBUMIN HUMAN 25% 12.5GM-W/25GM FOR 37.5GM IV ONE (17:00)
[2017-11-22] MEDS ORDERED: ALBUMIN HUMAN 25% 25GM-W/12.5GM FOR 37.5GM IV ONE (17:00)
[2017-11-22] MEDS: cefTRIAXone INJ 2,000 MG in SODIUM CHLORIDE 0.9% INJ 100 ML IV SCH (17:28)
[2017-11-22 19:27] LABS: PERITONEAL HISTIOCYTES 3 %; PERITONEAL LYMPHS 83 %; PERITONEAL MONOS 12 %; PERITONEAL POLYS(SEGS) 2 %
[2017-11-22 19:41] LABS: PERITONEAL RBC 96 /MM3 (0-0)
[2017-11-23] VITALS (12 sets, daily range): BP systolic 92–147; BP diastolic 46–66; PULSE 59; RESP 24–30; TEMP 98.6–100.2; O2SAT 97–99
[2017-11-23] MEDS: DEXMEDETOMIDINE INJ 200 MCG in SODIUM CHLORIDE 0.9% INJ 50 ML IV PRN (05:19)
[2017-11-23 05:26] LABS: HEMATOCRIT 28.4 % (39.0-51.0); HEMOGLOBIN 9.4 GM/DL (13.0-17.0); MEAN CELL VOLUME 92.8 FL (80.0-100.0); MEAN CORPUSCULAR HEMOGLOBIN 30.9 PG (27.0-34.0); MEAN CORPUSCULAR HGB CONC 33.2 % (32.0-36.0); MEAN PLATELET VOLUME 10.1 FL (7.0-11.0); PLATELET COUNT 140 TH/MM3 (150-450); RED BLOOD COUNT 3.06 MIL/MM3 (4.50-5.90); RED CELL DISTRIBUTION WIDTH 18.1 % (11.6-17.2); WHITE BLOOD COUNT 10.3 TH/MM3 (4.0-11.0)
[2017-11-23 05:48] LABS: BICARBONATE 23.9 MEQ/L (21.0-32.0); CREATININE 6.35 MG/DL (0.60-1.30)
[2017-11-23] MEDS: HEPARIN SODIUM - SQ 10,000 UNITS/ML VIAL SQ SCH ×3 (06:00→21:26)
[2017-11-23] MEDS: LEVOTHYROXINE SODIUM 125 MCG TAB PO SCH (06:00)
[2017-11-23] MEDS: INSULIN ASPART SUPPLEMENTAL SCALE SQ SCH ×4 (08:00→21:00)
[2017-11-23] MEDS: PANTOPRAZOLE SOD 20 MG DELAYED RELEASE TAB PO SCH (09:00)
[2017-11-23] MEDS: GABAPENTIN 100 MG CAP PO SCH ×3 (09:00→17:14)
[2017-11-23] MEDS: SODIUM CHLORIDE 0.9% FLUSH 10 ML FLUSH IV FLUSH SCH ×2 (09:00→21:27)
[2017-11-23] MEDS: CALCIUM ACETATE 667 MG CAP PO SCH ×3 (09:00→17:13)
[2017-11-23] MEDS: ASPIRIN EC 81 MG TABEC PO SCH (09:00)
[2017-11-23] MEDS: CARVEDILOL 3.125 MG TAB PO SCH ×2 (09:00→21:00)
--- NOTE | 2017-11-23 09:15 | PD.VS.PN ---
Subjective POD #: 3 Procedure(s): L brachial-brachial bypass, ligation of AVF Subjective/Hospital Course Pt intubated UE warm + Doppler signals L UE Objective Vitals/I&O Date Time Temp Pulse Resp B/P (MAP) Pulse Ox O2 Delivery O2 Flow Rate FiO2 11/23/17 08:16 99 40 11/23/17 04:26 99 40 11/23/17 03:00 40 11/23/17 03:00 98.6 59 30 102/52 (69) 99 112/46 (68) 11/23/17 03:00 59 11/23/17 03:00 99 Mechanical Ventilator 40 11/23/17 00:35 99 40 11/22/17 23:00 40 11/22/17 23:00 59 11/22/17 23:00 98.1 59 29 101/51 (68) 99 104/40 (61) 11/22/17 23:00 99 Mechanical Ventilator 40.00 11/22/17 20:14 100 40 11/22/17 19:00 40 11/22/17 19:00 100 Mechanical Ventilator 40 11/22/17 19:00 59 11/22/17 19:00 98.1 59 30 106/52 (70) 100 103/46 (65) 11/22/17 19:00 59 103/46 11/22/17 17:54 59 93/49 11/22/17 17:06 99 40 11/22/17 15:48 99 40 11/22/17 15:00 40 11/22/17 15:00 99 Mechanical Ventilator 40 11/22/17 15:00 59 11/22/17 15:00 98.6 59 29 113/58 (76) 99 112/44 (66) 11/22/17 11:00 98.1 60 30 140/76 (97) 99 137/58 (84) 11/22/17 11:00 40 11/22/17 11:00 59 11/22/17 11:00 99 Mechanical Ventilator 40 11/22/17 10:30 98 40 11/23/17 11/23/17 11/23/17 07:00 15:00 23:00 Intake Total 617 ml Balance 617 ml Exam: GENERAL: Pt intubated SKIN: UE Warm and dry Left Upper extremity incision well approximated w/ staple closure Incision w/o R/D/S/O CARDIOVASCULAR: NSR on CM + Doppler signals LEFT radial/ulnar/rodas arch L UE Cap refill less than 3 sec Laboratory Laboratory Tests Test 11/22/17 14:08 11/22/17 15:38 11/23/17 04:25 White Blood Count 9.2 10.3 Red Blood Count 2.98 3.06 Hemoglobin 9.1 9.4 Hematocrit 27.7 28.4 Mean Corpuscular Volume 92.9 92.8 Mean Corpuscular Hemoglobin 30.6 30.9 Mean Corpuscular Hemoglobin Concent 33.0 33.2 Red Cell Distribution Width 18.2 18.1 Platelet Count 143 140 Mean Platelet Volume 10.2 10.1 Activated Partial Thromboplast Time 31.5 Lactate Dehydrogenase 217 Total Protein 5.2 Peritoneal Fluid WBC 621 Peritoneal Fluid RBC 96 Peritoneal Fluid Neutrophils 2 Peritoneal Fluid Lymphocytes 83 Peritoneal Fluid Monocytes 12 Peritoneal Fluid Histiocytes 3 Peritoneal Fluid Comment Peritoneal Fluid Total Protein 3.0 Peritoneal Fluid Albumin 1.4 Peritoneal Fluid LDH 152 Peritoneal Fluid Glucose 110 Blood Urea Nitrogen 27 Creatinine 6.35 Random Glucose 151 Calcium Level 8.0 Sodium Level 135 Potassium Level 4.2 Chloride Level 96 Carbon Dioxide Level 23.9 Anion Gap 15 Estimat Glomerular Filtration Rate 9 Date/Time Source Procedure Growth Status 11/15/17 14:30 Blood Other Aerobic Blood Culture - Final NO GROWTH IN 5 DAYS Complete 11/15/17 14:30 Blood Other Anaerobic Blood Culture - Final NO GROWTH IN 5 DAYS Complete 11/22/17 15:38 Fluid Peritoneal Fluid Gram Stain Pending Received 11/22/17 15:38 Fluid Peritoneal Fluid Body Fluid Culture Pending Received Assessment and Plan Plan POD# 3 S/p L UE bypass, access ligation UE warm Pt with sufficient perfusion L UE + L UE distal pulses heard via Doppler Removed L UE dressing Plan May apply a dry dressing to Left arm D/C planning Renetta Gaviria NP [facility] [phone] Discharge Planning D/C planning from a vascular surgery standpoint- 1-2 days Arranging out pt f/u Renetta Gaviria Nov 23, 2017 09:15
[2017-11-23] MEDS: EPOETIN ALFA 10,000 UNITS/ML VIAL IV PUSH PRN (11:00)
[2017-11-23] MEDS: SODIUM CHLOR 0.9% 1000 ML INJ 1,000 ML OTHER PRN (11:30)
[2017-11-23] MEDS: HEPARIN SODIUM - IV 10,000 UNITS/10 ML VIAL PRN (11:30)
[2017-11-23] MEDS: GENTAMICIN SULFATE 20 MG/2 ML VIAL OTHER PRN (11:30)
--- NOTE | 2017-11-23 11:33 | HHI.NPPN ---
Subjective History of Present Illness Patient is a 67-year-old male with a history of end-stage renal disease on hemodialysis Sunday/Sunday/ Sunday, diabetes, CAD, CHF, hypertension was transferred from [facility] to be evaluated by vascular surgery. Patient states he was admitted to [facility] because he had low blood pressure readings at home. AV fistula has not been functioning or used for 6- 8 weeks and they have been using a permacath for dialysis. Permacath has been removed secondary to possible infection and vas cath has been placed. He has been treated with cefepime IV. Last dialysis was Sunday and 1.5 L removed. Patient has a necrotic left middle finger that patient states has been going on for the last 12 weeks. Additional Remarks Patient is awake, on ventilator CPAP , and low dose pressors, now on HD. Review of Systems Genitourinary Remarks Objective Data Data Vital Signs Date Time Temp Pulse Resp B/P (MAP) Pulse Ox O2 Delivery O2 Flow Rate FiO2 11/23/17 08:16 99 40 11/23/17 07:00 59 11/23/17 07:00 99.1 59 30 125/66 (85) 99 147/61 (89) 11/23/17 07:00 40 11/23/17 07:00 99 Mechanical Ventilator 40 11/23/17 04:26 99 40 11/23/17 03:00 40 11/23/17 03:00 98.6 59 30 102/52 (69) 99 112/46 (68) 11/23/17 03:00 59 11/23/17 03:00 99 Mechanical Ventilator 40 11/23/17 00:35 99 40 11/22/17 23:00 40 11/22/17 23:00 59 11/22/17 23:00 98.1 59 29 101/51 (68) 99 104/40 (61) 11/22/17 23:00 99 Mechanical Ventilator 40.00 11/22/17 20:14 100 40 11/22/17 19:00 40 11/22/17 19:00 100 Mechanical Ventilator 40 11/22/17 19:00 59 11/22/17 19:00 98.1 59 30 106/52 (70) 100 103/46 (65) 11/22/17 19:00 59 103/46 11/22/17 17:54 59 93/49 11/22/17 17:06 99 40 11/22/17 15:48 99 40 11/22/17 15:00 40 11/22/17 15:00 99 Mechanical Ventilator 40 11/22/17 15:00 59 11/22/17 15:00 98.6 59 29 113/58 (76) 99 112/44 (66) -: 11/23/17 0425 11/23/17 0425 Microbiology 11/22/17 Gram Stain - Final, Resulted 11/22/17 Body Fluid Culture, Resulted Pending Tubes & Lines: Perma-Cath Physical Exam General Appearance: Well Developed, Well Nourished, No Acute Distress, Comfortable Appearance Remarks Intubated and sedated. Eyes Eye Exam: Pupils Equal Throat Throat Exam: Oral Mucosa [place] & Moist Pulmonary Resp Exam: Clear Bilaterally, Breath Sounds Equal, No Distress Cardiology CV Exam: Regular Gastrointestinal/Abdomen GI Exam: Soft, Non-Tender, Bowel Sounds Present Extremeties Extremities Exam: Moderate Edema Neurologic Neuro Exam: Unresponsive, Sedated Assessment/Plan Discussed Condition With: Spouse Assessment Summary: End Stage Renal Disease Problem List: (1) ESRD (end stage renal disease) on dialysis ICD Codes: N18.6 - End stage renal disease; Z99.2 - Dependence on renal dialysis Plan: Dialysis MWF s/p L UE bypass 2/6 ligation of AVF and DRIL On ventilator CPAP trail underway Perma cath placement 11/21. HD yesterday with 2 liters removed Labs reviewed. Calcium low protein corrected calcium ordered Anemia Epogen with dialysis Post Paracentesis done 11/22/17. on CPAP now. weaning as tolerated. HD now, trying to get 2 liters. (2) Gangrene of finger of left hand ICD Codes: I96 - Gangrene, not elsewhere classified Plan: necrotic area on left hand middle finger Hand surgery consulted surgery planned for this week (3) AV fistula occlusion ICD Codes: T82.898A - Other specified complication of vascular prosthetic devices, implants and grafts, initial encounter Plan: s/p L UE bypass 2/6 ligation of AVF and DRIL (4) Diabetes mellitus ICD Codes: E11.9 - Type 2 diabetes mellitus without complications Plan: Maintain BS between 140mg/dl to 180 mg/dl Kim Santos MD Nov 23, 2017 11:33
--- NOTE | 2017-11-23 11:37 | HHI.CCPN ---
Subjective Remarks/Hospital Course 67-year-old male, has been at [facility] for the last 15 days, transferred to [facility] for vascular evaluation. Patient has known end-stage renal disease and gets hemodialysis every Sunday and Sunday. He had a left upper extremity AV fistula, and it had some problem, so he underwent left upper extremity access revision, left upper extremity distal revascularization and interval ligation, last August 07, 2017. He was discharged, and apparently the fistula was working okay, and during that admission also he had that left middle finger dry gangrene which was felt to be ischemic in nature due to steal syndrome. As an outpatient, his fistula apparently stopped working, so he had a permacath placed in his right IJ. Patient stated that he's had problem on and off with low blood pressure for the last 4 months. The hypotension were getting worse and he ended up getting admitted at [facility] where he stayed for at least 15 days. During that admission, he had some positive blood culture done on November 05 that grew Enterobacter cloaca. Blood culture from November 07 were negative. His permacath was removed on November 07 and the culture of that was negative. Patient underwent L UE bypass brachial-brachial and ligation of the AV fistula. Is scheduled for permacath placement tomorrow morning and remains in the ICU sedated and intubated. Subjective: 2: Afebrile .The patient remains intubated and sedated. Plan for permacath placement this a.m.. Will resume ventilator weaning postoperatively. 11/22: Attempted CPAP trials postoperatively yesterday, unsuccessful. Patient continues on phenylephrine currently a 60 mics/minute. Propofol discontinued Precedex infusion initiated CPAP trials are reinitiated this a.m. with plans for SBT later this morning and possible extubation. 11/23: Getting HD. Patient is awake, but very weak. On CPAP but requiring high pressure support 20. Had US guided paracentesis yesterday with 6L fluid removed- chylous. Remains on Precedex and remains on Shon-Synephrine at 60 mcg/min increased to 100 mcg/min Objective Vital Signs Date Time Temp Pulse Resp B/P (MAP) Pulse Ox O2 Delivery O2 Flow Rate FiO2 11/23/17 08:16 99 40 11/23/17 07:00 59 11/23/17 07:00 99.1 30 125/66 (85) 147/61 (89) 11/23/17 07:00 Mechanical Ventilator 11/22/17 23:00 40.00 Intake and Output 11/23/17 11/23/17 11/24/17 08:00 16:00 00:00 Intake Total 617 ml Balance 617 ml Result Diagram: 11/23/17 0425 11/23/17 0425 Imaging Last Impressions Chest X-Ray 11/20/17 0000 Signed Impressions: Service Date/Time: Monday, November 20, 2017 23:22 - CONCLUSION: 1. The superior aspect of the left hemithorax has multiple overlying structures which could obscure a small pneumothorax. Given this limitation, no pneumothorax is identified. 2. Small bilateral pleural effusions with atelectasis at the bases. Sami Deng MD Lower Extremity Ultrasound 11/13/17 0000 Signed Impressions: Service Date/Time: Monday, November 13, 2017 07:52 - CONCLUSION: No DVT seen in either leg. Jewel Kaiser MD Hand X-Ray 11/13/17 0000 Signed Impressions: Service Date/Time: Monday, November 13, 2017 10:18 - CONCLUSION: Osteoporosis. Extensive arterial calcifications. 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 No definite evidence of bony destruction or osteomyelitis Jared Upton MD Objective Remarks GENERAL: Sedated and intubated elderly gentleman, critically ill on pressors SKIN: Warm and dry. central line left groin erythematous HEAD: Normocephalic. EYES: No scleral icterus. No injection or drainage. NECK: Supple, trachea midline. No JVD or lymphadenopathy. CARDIOVASCULAR: Regular rate and rhythm without murmurs, gallops, or rubs. Shon- Synephrine now increased to 100 mcg/min RESPIRATORY: Breath sounds equal bilaterally. No accessory muscle use. GASTROINTESTINAL: Abdomen soft, non-tender, protuberant MUSCULOSKELETAL: No cyanosis, or edema. Noted dry gangrene left hand middle digit. L groin central line site erythematous BACK: Nontender without obvious deformity. NEURO EXAM: Sedated and intubated, pupils brisk and 2 mm bilaterally. Follows commands very weakly on all 4 extremities Procedures 11/20 Sp LUE angiogram. 11/21 permacath placement A/P Assessment and Plan Neuro: Metabolic encephalopathy - On Precedex for sedation and vent synchrony - Significant neuromuscular weakness may impede vent weaning - PT for passive range of motion Resp: Acute respiratory failure - Postoperative respiratory failure but now failing to wean - Daily CPAP trials - Duo nebs every 4 hours when necessary for wheezing - Obtain ABG CVS: Hypotension Bilateral upper extremity ischemia - L UE bypass - plastics/hand surgery - potential L digit treatment later in the week. -Currently on Sohn-Synephrine to keep map above 65 GI: -Large-volume ascites removed 11/22/17 -f/u cultures : End-stage renal disease - Hemodialysis per nephrology, last dialyzed 11/21, 2 L removed - Permacath placement 11/21 Endo: Diabetes mellitus - Insulin sliding scale ID: Bacteremia Sepsis Possible left femoral line infection - Antibiotics per ID (Rocephin) -Repeat blood culture add vancomycin DVT GI prophylaxis - Teds SCDs - Subcutaneous heparin - Pepcid DC Femoral central line after placing new upper body central line Critical Care:my billing statement This patient remains critically ill with one or more organ systems which are or may become a threat to life. I have spent in excess of 32 minutes discontinuously in the care and management of this patient. This time is exclusive of procedures, and includes, but is not limited to, evaluation of the patient, review of the medical record, discussions with family, consultants, nursing staff, or respiratory therapy, and documentation in the medical record. Pratik Gallardo MD Nov 23, 2017 11:37
[2017-11-23] MEDS ORDERED: Vancomycin Consult Pharmacy 1 EA OTHER SCH (11:45)
[2017-11-23] MEDS ORDERED: VANCOMYCIN INJ 1,000 MG in SODIUM CHLOR 0.9% 250 ML INJ 250 ML IV ONE (11:45)
[2017-11-23] MEDS: CLOPIDOGREL 75 MG TAB PO SCH (12:28)
[2017-11-23] MEDS: DOCUSATE SODIUM 50 MG/SENNA 8.6 MG TAB PO SCH ×2 (12:28→21:37)
[2017-11-23] MEDS: BACITRACIN TOP OINT 15 GM TUBE TOPICAL SCH ×2 (12:28→21:27)
[2017-11-23] MEDS: MIDODRINE 5 MG TAB PO SCH ×2 (12:28→17:13)
[2017-11-23] MEDS: THYROID 60 MG TAB PO SCH ×2 (12:28→21:26)
[2017-11-23] MEDS: PHENYLEPHRINE 40 MG in D5W 500 ML IV PRN ×2 (13:39→23:23)
--- NOTE | 2017-11-23 15:47 | PD.PROCEDR ---
Central Line Procedure REASON FOR PROCEDURE Central venous access PROCEDURE PERFORMED Central line placement: RIJ central line US guided CONSENT Informed consent for procedure was obtained from and time out performed. The risks and benefits of the procedure were discussed to include but limited to bleeding, clot formation, infection, and even . ANESTHESIA Local injection of 1% Lidocaine DESCRIPTION OF THE PROCEDURE The patient was placed in supine, mild Trendelenburg position. The area was exposed and cleansed with ChloraPrep, times two. Large sterile drape was used to cover the patient, with the site exposed, under sterile conditions including cap, face mask, sterile gown, and sterile gloves. On single attempt, the introducer needle was inserted with negative pressure in syringe and venous flash was obtained. The guide wire was then advanced without any restriction and the needle was removed. The dilator was used without any complications. Using Seldinger technique the 20 CM 7F triple lumen catheter was advanced over the guide wire to a depth of 17 centimeters. The guide wire was removed. All ports were aspirated with dark venous blood return and flushed easily with sterile saline. All ports were capped. Antibiotic disc was placed around central line at puncture site. The central line was secured to the skin with two interrupted 2.0 silk sutures. The area was bandaged with sterile see- through central line bandage. RADIOLOGICAL DATA Ultrasound guidance was used to locate RIJ. Doppler/color flow was used to confirm venous flow. COMPLICATIONS: No apparent complications ESTIMATED BLOOD LOSS: Less than 1 cc. Pratik Gallardo MD Nov 23, 2017 15:47
[2017-11-23] MEDS ORDERED: MICAFUNGIN INJ 150 MG in SODIUM CHLORIDE 0.9% INJ 100 ML IV ONE ×2 (16:00→17:00)
--- NOTE | 2017-11-23 16:16 | RADRPT ---
EXAM DATE/TIME: 11/23/2017 15:48 [facility] COMPARISON: CHEST SINGLE AP, November 22, 2017, 7:12. INDICATIONS : Central Line. MEDICAL HISTORY : Myocardial infarction. Congestive heart failure. Hypothyroidism. Hearing loss. Neuropathy. Afib. Hype rtension. Sleep apnea. Renal disease. Liver disease. Arthritis.Diabetes. Depression. Anxiety. Skin ca ncer. Blood transfusion. SURGICAL HISTORY : CABG Pacemaker. Right rotator cuff. Internal defibrillator. Mitral valve replacement. Abdominal absce ss drainage. Bilateral cataract removal. Removal of sternum wires. Skin cancer removal. ENCOUNTER: Subsequent ACUITY: 2 weeks PAIN SCORE: Non-responsive. LOCATION: Bilateral chest FINDINGS: Central line has been placed from the right IJ approach. Dialysis catheter in good position on the r ight. ET tube nasogastric tube and pacer evident. Minimal parenchymal changes right base. Cardiomegaly with mild interstitial edema. CONCLUSION: There is no pneumothorax. Right IJ line in good position. Meir Oden MD FACR on November 23, 2017 at 16:13 Board Certified Radiologist. This report was verified electronically.
[2017-11-23] MEDS: cefTRIAXone INJ 2,000 MG in SODIUM CHLORIDE 0.9% INJ 100 ML IV SCH (16:45)
[2017-11-24] VITALS (12 sets, daily range): BP systolic 91–130; BP diastolic 43–63; PULSE 59–67; RESP 16–29; TEMP 98.1–99.8; O2SAT 97–100
[2017-11-24] MEDS: LEVOTHYROXINE SODIUM 125 MCG TAB PO SCH (05:32)
[2017-11-24] MEDS: HEPARIN SODIUM - SQ 10,000 UNITS/ML VIAL SQ SCH ×3 (05:32→22:00)
[2017-11-24] MEDS: ACETAMINOPHEN 325 MG TAB PO PRN (05:32)
[2017-11-24] MEDS: INSULIN ASPART SUPPLEMENTAL SCALE SQ SCH ×4 (08:00→21:00)
--- NOTE | 2017-11-24 08:35 | HHI.CCPN ---
Subjective Remarks/Hospital Course 67-year-old male, has been at [facility] for the last 15 days, transferred to [facility] for vascular evaluation. Patient has known end-stage renal disease and gets hemodialysis every Sunday and Sunday. He had a left upper extremity AV fistula, and it had some problem, so he underwent left upper extremity access revision, left upper extremity distal revascularization and interval ligation, last August 07, 2017. He was discharged, and apparently the fistula was working okay, and during that admission also he had that left middle finger dry gangrene which was felt to be ischemic in nature due to steal syndrome. As an outpatient, his fistula apparently stopped working, so he had a permacath placed in his right IJ. Patient stated that he's had problem on and off with low blood pressure for the last 4 months. The hypotension were getting worse and he ended up getting admitted at [facility] where he stayed for at least 15 days. During that admission, he had some positive blood culture done on November 05 that grew Enterobacter cloaca. Blood culture from November 07 were negative. His permacath was removed on November 07 and the culture of that was negative. Patient underwent L UE bypass brachial-brachial and ligation of the AV fistula. Is scheduled for permacath placement tomorrow morning and remains in the ICU sedated and intubated. Subjective: 11/21: Afebrile .The patient remains intubated and sedated. Plan for permacath placement this a.m.. Will resume ventilator weaning postoperatively. 11/22: Attempted CPAP trials postoperatively yesterday, unsuccessful. Patient continues on phenylephrine currently a 60 mics/minute. Propofol discontinued Precedex infusion initiated CPAP trials are reinitiated this a.m. with plans for SBT later this morning and possible extubation. 11/23: Getting HD. Patient is awake, but very weak. On CPAP but requiring high pressure support 20. Had US guided paracentesis yesterday with 6L fluid removed- chylous. Remains on Precedex and remains on Shon-Synephrine at 60 mcg/min increased to 100 mcg/min 11/24: Remains intubated off all sedation. Requiring Shon-Synephrine at 80 mcg/ min to keep map above 65. HD with 2L removed. Left groin central line was removed and right groin hemodialysis catheter was removed yesterday 11/23/17. New right IJ central line placed yesterday Objective Vital Signs Date Time Temp Pulse Resp B/P (MAP) Pulse Ox O2 Delivery O2 Flow Rate FiO2 11/24/17 08:12 97 40 11/24/17 03:00 59 11/24/17 03:00 99.8 29 122/60 (80) 125/47 (73) 11/24/17 03:00 Mechanical Ventilator 11/22/17 23:00 40.00 Intake and Output 11/24/17 11/24/17 11/25/17 08:00 16:00 00:00 Intake Total 1283 ml Output Total 300 ml Balance 983 ml Result Diagram: 11/23/1742411/23/17 042 Imaging Last Impressions Chest X-Ray 11/20/17 0000 Signed Impressions: Service Date/Time: Monday, November 20, 2017 23:22 - CONCLUSION: 1. The superior aspect of the left hemithorax has multiple overlying structures which could obscure a small pneumothorax. Given this limitation, no pneumothorax is identified. 2. Small bilateral pleural effusions with atelectasis at the bases. Sami Deng MD Lower Extremity Ultrasound 11/13/17 0000 Signed Impressions: Service Date/Time: Monday, November 13, 2017 07:52 - CONCLUSION: No DVT seen in either leg. Jewel Kaiser MD Hand X-Ray 11/13/17 0000 Signed Impressions: Service Date/Time: Monday, November 13, 2017 10:18 - CONCLUSION: Osteoporosis. Extensive arterial calcifications. 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 No definite evidence of bony destruction or osteomyelitis Jared Upton MD Objective Remarks GENERAL: Sedated and intubated elderly gentleman, critically ill on pressors, weak SKIN: Warm and dry. HEAD: Normocephalic. EYES: No scleral icterus. No injection or drainage. NECK: Supple, trachea midline. No JVD or lymphadenopathy. CARDIOVASCULAR: Regular rate and rhythm without murmurs, gallops, or rubs. Shon- Synephrine 80 mcg/min RESPIRATORY: Breath sounds equal bilaterally, diminished at the bases. No accessory muscle use. GASTROINTESTINAL: Abdomen soft, non-tender, protuberant MUSCULOSKELETAL: No cyanosis, or edema. Noted dry gangrene left hand middle digit. L groin central line site erythematous BACK: Nontender without obvious deformity. NEURO EXAM: Intubated, pupils brisk and 2 mm bilaterally. Follows commands weakly on all 4 extremities, but improved from yesterday Procedures 11/20 Sp LUE angiogram. 11/21 permacath placement A/P Assessment and Plan Neuro: Metabolic encephalopathy - DC all sedation - Neuromuscular weakness may impede vent weaning - PT for passive range of motion Resp: Acute respiratory failure - Postoperative respiratory failure with failure to wean - Daily CPAP trials - Duo nebs every 4 hours when necessary for wheezing CVS: Hypotension Bilateral upper extremity ischemia - s/p L UE bypass - plastics/hand surgery - potential L digit treatment later in the week. - Currently on Shon-Synephrine to keep map above 65 GI: - Large-volume ascites removed 11/22/17 - f/u cultures-negative to date : End-stage renal disease - Hemodialysis per nephrology, last dialyzed 11/21, 2 L removed - Permacath placement 11/21 Endo: Diabetes mellitus - Insulin sliding scale ID: Bacteremia Sepsis Possible left femoral line infection - Antibiotics per ID (Rocephin) - Repeat blood culture added vancomycin - Single dosed of Micafungin given 11/23/17 for erythema around the left central line site DVT GI prophylaxis - Teds SCDs - Subcutaneous heparin - Pepcid DCd Femoral central line and vascath 11/23/17 Critical Care: This patient remains critically ill with one or more organ systems which are or may become a threat to life. I have spent in excess of 30 minutes discontinuously in the care and management of this patient. This time is exclusive of procedures, and includes, but is not limited to, evaluation of the patient, review of the medical record, discussions with family, consultants , nursing staff, or respiratory therapy, and documentation in the medical record. Pratik Gallardo MD Nov 24, 2017 08:35
[2017-11-24] MEDS: CARVEDILOL 3.125 MG TAB PO SCH ×2 (09:00→21:00)
--- NOTE | 2017-11-24 09:07 | RADRPT ---
EXAM DATE/TIME: 11/24/2017 08:21 [facility] COMPARISON: CHEST SINGLE AP, November 23, 2017, 15:48. INDICATIONS : Pleural effusion. MEDICAL HISTORY : Myocardial infarction. Congestive heart failure. Hypothyroidism. Hearing loss. Neuropathy. Afib. Hype rtension. Sleep apnea. Renal disease. Liver disease. Arthritis. Diabetes. Depression. Anxiety. Skin c ancer. Blood transfusion. SURGICAL HISTORY : CABG Pacemaker. Right rotator cuff. Internal defibrillator. Mitral valve replacement. Abdominal absce ss drainage. Bilateral cataract removal. Removal of sternum wires. Skin cancer removal. ENCOUNTER: [facility] ACUITY: 2 weeks PAIN SCORE: Non-responsive. LOCATION: Bilateral chest FINDINGS: Stable appearance of a right-sided IJ line with the tip overlying the distal SVC. The dialysis cathet er stable in position. Endotracheal tube with the tip at the level of the clavicles. A orogastric tub e in an AICD present. Heart size is mildly enlarged. Persistent right basilar atelectasis/airspace co nsolidation and small pleural effusion. There is diffuse cephalization of vasculature. The left hemit horax is largely clear. CONCLUSION: Stable lines and tubes. Stable lung exam consistent with congestive heart failure versus volume overl oad. Persistent right basilar airspace consolidation/atelectasis and small pleural effusion. The. Kenya Mayberry MD on November 24, 2017 at 9:00 Board Certified Radiologist. This report was verified electronically.
[2017-11-24] MEDS: PHENYLEPHRINE 40 MG in D5W 500 ML IV PRN ×3 (09:19→19:00)
[2017-11-24] MEDS: DOCUSATE SODIUM 50 MG/SENNA 8.6 MG TAB PO SCH ×2 (09:41→21:00)
[2017-11-24] MEDS: GABAPENTIN 100 MG CAP PO SCH ×3 (09:42→18:00)
[2017-11-24] MEDS: CLOPIDOGREL 75 MG TAB PO SCH (09:42)
[2017-11-24] MEDS: THYROID 60 MG TAB PO SCH ×2 (09:42→21:00)
[2017-11-24] MEDS: CALCIUM ACETATE 667 MG CAP PO SCH ×3 (09:43→18:00)
[2017-11-24] MEDS: ASPIRIN EC 81 MG TABEC PO SCH (09:43)
[2017-11-24] MEDS: PANTOPRAZOLE SOD 20 MG DELAYED RELEASE TAB PO SCH (09:43)
[2017-11-24] MEDS: SODIUM CHLORIDE 0.9% FLUSH 10 ML FLUSH IV FLUSH SCH ×2 (09:44→21:00)
[2017-11-24] MEDS: MIDODRINE 5 MG TAB PO SCH ×2 (09:44→18:00)
[2017-11-24] MEDS: BACITRACIN TOP OINT 15 GM TUBE TOPICAL SCH ×2 (09:59→21:00)
--- NOTE | 2017-11-24 10:47 | HHI.NPPN ---
Subjective History of Present Illness Patient is a 67-year-old male with a history of end-stage renal disease on hemodialysis Sunday/Sunday/ Sunday, diabetes, CAD, CHF, hypertension was transferred from [facility] to be evaluated by vascular surgery. Patient states he was admitted to [facility] because he had low blood pressure readings at home. AV fistula has not been functioning or used for 6- 8 weeks and they have been using a permacath for dialysis. Permacath has been removed secondary to possible infection and vas cath has been placed. He has been treated with cefepime IV. Last dialysis was Sunday and 1.5 L removed. Patient has a necrotic left middle finger that patient states has been going on for the last 12 weeks. Additional Remarks Patient is awake, on ventilator CPAP , and for possible extubation. Review of Systems Genitourinary Remarks Objective Data Data Vital Signs Date Time Temp Pulse Resp B/P (MAP) Pulse Ox O2 Delivery O2 Flow Rate FiO2 11/24/17 10:26 100 Nasal Cannula 5 11/24/17 09:19 65 109/42 11/24/17 08:12 97 40 11/24/17 07:22 99 40 11/24/17 04:05 99 40 11/24/17 03:00 59 11/24/17 03:00 99.8 59 29 122/60 (80) 99 125/47 (73) 11/24/17 03:00 99 Mechanical Ventilator 40 11/24/17 03:00 40 11/24/17 02:00 59 119/57 11/24/17 01:15 99 40 11/23/17 23:23 59 123/49 11/23/17 23:00 99.7 59 29 122/60 (80) 97 121/48 (72) 11/23/17 23:00 97 Mechanical Ventilator 40 11/23/17 23:00 59 11/23/17 23:00 40 11/23/17 22:40 99 40 11/23/17 20:06 98 40 11/23/17 19:00 40 11/23/17 19:00 100.2 59 29 92/48 (63) 99 115/47 (69) 11/23/17 19:00 99 Mechanical Ventilator 40 11/23/17 19:00 59 115/47 11/23/17 19:00 59 11/23/17 15:00 40 11/23/17 15:00 59 11/23/17 15:00 99 Mechanical Ventilator 40 11/23/17 15:00 98.7 59 24 125/64 (84) 99 121/48 (72) 11/23/17 14:47 98 40 11/23/17 13:39 59 111/50 11/23/17 11:00 98.9 59 30 135/60 (85) 99 135/51 (79) 11/23/17 11:00 59 11/23/17 11:00 40 11/23/17 11:00 99 Mechanical Ventilator 40 -: 11/23/17 0425 11/23/17 0425 Microbiology 11/24/17 Blood Fungal Culture, Received Pending 11/24/17 Blood Fungal Culture, Received Pending 11/23/17 Fungal Culture, Received Pending 11/23/17 Wound Culture, Received Pending Tubes & Lines: Perma-Cath Physical Exam General Appearance: Well Developed, Well Nourished, No Acute Distress, Comfortable Appearance Remarks Intubated and sedated. Eyes Eye Exam: Pupils Equal Throat Throat Exam: Oral Mucosa [place] & Moist Pulmonary Resp Exam: Clear Bilaterally, Breath Sounds Equal, No Distress Cardiology CV Exam: Regular Gastrointestinal/Abdomen GI Exam: Soft, Non-Tender, Bowel Sounds Present Extremeties Extremities Exam: Moderate Edema Neurologic Neuro Exam: Unresponsive, Sedated Assessment/Plan Discussed Condition With: Spouse Assessment Summary: End Stage Renal Disease Problem List: (1) ESRD (end stage renal disease) on dialysis ICD Codes: N18.6 - End stage renal disease; Z99.2 - Dependence on renal dialysis Plan: Dialysis MWF s/p L UE bypass 11/20 ligation of AVF and DRIL On ventilator CPAP trail underway Perma cath placement 11/21. HD yesterday with 2 liters removed Labs reviewed. Calcium low protein corrected calcium ordered Anemia Epogen with dialysis Post Paracentesis done 11/22/17. on CPAP now. weaning as tolerated. HD done yesterday and 2 liters removed. Possible extubation. Next HD will be on Sunday or sooner if needed. (2) Gangrene of finger of left hand ICD Codes: I96 - Gangrene, not elsewhere classified Plan: necrotic area on left hand middle finger Hand surgery consulted surgery planned for this week (3) AV fistula occlusion ICD Codes: T82.898A - Other specified complication of vascular prosthetic devices, implants and grafts, initial encounter Plan: s/p L UE bypass 2/6 ligation of AVF and DRIL (4) Diabetes mellitus ICD Codes: E11.9 - Type 2 diabetes mellitus without complications Plan: Maintain BS between 140mg/dl to 180 mg/dl Kim Santos MD Nov 24, 2017 10:47
--- NOTE | 2017-11-24 13:54 | HHI.IDPN ---
Subjective Subjective Remarks ID [id number] for Patient is a 67-year-old male, has been at [facility] for the last 15 days, transferred to [facility] for vascular evaluation. Patient has known end-stage renal disease and gets hemodialysis every Sunday and Sunday. He had a left upper extremity AV fistula, and it had some problem, so he underwent left upper extremity access revision, left upper extremity distal revascularization and interval ligation, last August 07, 2017. He was discharged, and apparently the fistula was working okay, and during that admission also he had that left middle finger dry gangrene which was felt to be ischemic in nature due to steal syndrome. As an outpatient, his fistula apparently stopped working, so he had a permacath placed in his right IJ. Patient stated that he's had problem on and off with low blood pressure for the last 4 months. The hypotension were getting worse and he ended up getting admitted at [facility] where he stayed for at least 15 days. During that admission, he had some positive blood culture done on November 05 that grew Enterobacter cloaca. Blood culture from November 07 were negative. His permacath was removed on November 07 and the culture of that was negative. Patient was apparently getting IV cefepime, and there was an infectious disease specialist monitoring him for his infection. Patient stated that he's had some reaction to the cefepime and he describes it as burning sensation. Patient is currently afebrile. There was evaluation of his AV fistula which shows thrombosis of his DRIL. He has now been transferred to [facility] for vascular evaluation. Infectious disease consultation has been requested to evaluate for sepsis. Overnight events reviewed. D/W RN Temps ok. No rash No diarrhea Had left UE hand ischemia access related. on Nov 20, performed Left brachial-brachial bypass with vein. Ligation of L UE AVF, Insertion of R brachial a-line with ultrasound, Had brachial-brachial bypass with vein, and ligation of AVF and DRIL. Extubated doing ok. On Levophed. Had bilateral groin lines removed. Had a Rt chest Permacath placement today. On HD. Antibiotics Current Medications Medications (Trade) Dose Ordered Sig/Renny Route Start Time Stop Time Status Last Admin (NS Flush) 2 ml BID IV FLUSH 11/12/17 21:00 11/24/17 09:44 (Tylenol) 650 mg Q4H PRN PO 11/12/17 20:00 11/24/17 05:32 (Zofran Inj) 4 mg Q6H PRN IVP 11/12/17 20:00 (Narcan Inj) 0.4 mg UNSCH PRN IV PUSH 11/12/17 20:00 (Senokot) 17.2 mg Q12H PRN PO 11/12/17 20:00 (Heparin Inj) 5,000 units Q8HR SQ 11/13/17 06:00 11/24/17 05:32 (Synthroid) 125 mcg DAILY@0600 PO 11/13/17 06:00 11/24/17 05:32 (D50w (Vial) Inj) 50 ml UNSCH PRN IV PUSH 11/12/17 23:30 (Glucagon Inj) 1 mg UNSCH PRN OTHER 11/12/17 23:30 (NovoLOG SUPPLEMENTAL SCALE) 1 ACHS SLIDING SCALE SQ 11/13/17 08:00 11/20/17 17:00 (Phoslo) 667 mg TID PO 11/13/17 09:00 11/24/17 09:43 (Ecotrin Ec) 162 mg DAILY PO 11/13/17 09:00 11/24/17 09:43 (Plavix) 75 mg DAILY PO 11/13/17 09:00 Future hold 11/24/17 09:42 (Baciguent Oint) 1 applic Q12HR TOPICAL 11/13/17 21:00 11/24/17 09:59 Sodium Chloride 1,000 ml @ 0 mls/hr Q0M PRN OTHER 11/13/17 14:09 11/23/17 11:30 (Heparin Inj) 8,000 units UNSCH PRN IV FLUSH 11/13/17 14:15 11/15/17 15:23 Sodium Chloride 1,000 ml @ 200 mls/hr Q5H PRN IV 11/13/17 14:09 Sodium Chloride 1,000 ml @ 0 mls/hr Q0M PRN OTHER 11/13/17 14:09 (Mannitol Inj) 12.5 gm UNSCH PRN IV 11/13/17 14:15 11/17/17 11:53 Albumin Human 100 ml @ 60 mls/hr UNSCH PRN IV 11/13/17 14:15 11/17/17 11:54 (NS Flush) 5 ml UNSCH PRN IV FLUSH 11/13/17 14:15 (Heparin Inj) UNSCH PRN .XX 11/13/17 14:15 11/23/17 11:30 (Gentamicin Inj) 20 mg UNSCH PRN OTHER 11/13/17 14:15 11/23/17 11:30 (Zofran Inj) 4 mg UNSCH PRN IV PUSH 11/13/17 14:15 (Tylenol) 650 mg UNSCH PRN PO 11/13/17 14:15 11/18/17 08:40 (Benadryl) 25 mg UNSCH PRN PO 11/13/17 14:15 (Nitrostat Sl) 0.4 mg UNSCH PRN SL 11/13/17 14:15 (Catapres) 0.1 mg UNSCH PRN PO 11/13/17 14:15 (Epogen Inj) 4,000 units UNSCH PRN IV PUSH 11/13/17 14:15 11/23/17 11:00 (Gelfoam 12 Mm/7 Mm Top) 1 foam UNSCH PRN TOP 11/13/17 14:15 Ceftriaxone Sodium 2000 mg/ Sodium Chloride 100 ml @ 200 mls/hr Q24H IV 11/13/17 16:00 11/23/17 16:45 (Coreg) 3.125 mg BID PO 11/16/17 21:00 11/22/17 08:37 (Protonix) 20 mg DAILY PO 11/17/17 09:00 11/24/17 09:43 (Heparin Inj) 5,000 units Q12HR SQ 11/16/17 21:00 11/25/17 12:00 Future Hold 11/18/17 08:31 (Proamatine) 5 mg BID@0900,1800 PO 11/21/17 09:00 11/24/17 09:44 (Neurontin) 100 mg TID PO 11/20/17 18:00 11/24/17 09:42 ([place] Thyroid) 60 mg BID PO 11/20/17 21:00 11/24/17 09:42 (Roxicodone) 5 mg Q4H PRN PO 11/20/17 15:15 (Dilaudid) 2 mg Q4H PRN PO 11/20/17 15:15 (Morphine Inj) 2 mg Q1H PRN IV PUSH 11/20/17 15:15 (Marleny-Colace) 1 tab BID PO 11/20/17 21:00 11/24/17 09:41 (Milk Of Magnesia Liq) 30 ml Q12H PRN PO 11/20/17 15:15 (Senokot) 17.2 mg Q12H PRN PO 11/20/17 15:15 (Dulcolax Supp) 10 mg DAILY PRN RECTAL 11/20/17 15:15 (Lactulose Liq) 30 ml DAILY PRN PO 11/20/17 15:15 Propofol 100 ml @ 2.841 mls/ hr TITRATE PRN IV 11/20/17 16:00 Future Hold 11/22/17 03:36 Phenylephrine HCl 40 mg/Dextrose 500 ml @ 30 mls/hr TITRATE PRN IV 11/20/17 16:00 11/24/17 09:19 (Brethine Inj) 1 mg UNSCH PRN SQ 11/20/17 17:30 (NS Flush) 5 ml UNSCH PRN IV FLUSH 11/20/17 17:45 (Heparin Inj) 2,000 units UNSCH PRN IV FLUSH 11/20/17 17:45 (Duoneb Neb) 1 ampule Q4HR NEB PRN NEB 11/21/17 08:45 11/21/17 08:47 Dexmedetomidine HCl 200 mcg/ Sodium Chloride 52 ml @ 4.94 mls/hr TITRATE PRN IV 11/22/17 07:00 11/23/17 05:19 Lines CL site ok. Permacath site ok. Past Medical History ESRD DM CAD HF. HTN Enlarged liver, and ascites Past Surgical History Pacemaker CABGx4 with mitral valvuloplasty in february 2005 Right fifth toe amputation Right shoulder rotator cuff repair Has had repeated paracentesis to drain his ascites Allergies: Coded Allergies: adhesive (Unverified Adverse Reaction, Severe, SKIN BREAKDOWN/ULCERS, ) Uncoded Allergies: MSG (Allergy, Intermediate, bowel problems, 08/02/17) Objective . Vital Signs Date Time Temp Pulse Resp B/P (MAP) Pulse Ox O2 Delivery O2 Flow Rate FiO2 11/24/17 10:26 100 Nasal Cannula 5 11/24/17 09:19 65 109/42 11/24/17 08:12 97 40 11/24/17 07:22 99 40 11/24/17 07:00 99 Mechanical Ventilator 40 11/24/17 07:00 98.8 59 29 116/57 (76) 99 130/54 (79) 11/24/17 07:00 40 11/24/17 07:00 59 11/24/17 04:05 99 40 11/24/17 03:00 59 11/24/17 03:00 99.8 59 29 122/60 (80) 99 125/47 (73) 11/24/17 03:00 99 Mechanical Ventilator 40 11/24/17 03:00 40 11/24/17 02:00 59 119/57 11/24/17 01:15 99 40 11/23/17 23:23 59 123/49 11/23/17 23:00 99.7 59 29 122/60 (80) 97 121/48 (72) 11/23/17 23:00 97 Mechanical Ventilator 40 11/23/17 23:00 59 11/23/17 23:00 40 11/23/17 22:40 99 40 11/23/17 20:06 98 40 11/23/17 19:00 40 11/23/17 19:00 100.2 59 29 92/48 (63) 99 115/47 (69) 11/23/17 19:00 99 Mechanical Ventilator 40 11/23/17 19:00 59 115/47 11/23/17 19:00 59 11/23/17 15:00 40 11/23/17 15:00 59 11/23/17 15:00 99 Mechanical Ventilator 40 11/23/17 15:00 98.7 59 24 125/64 (84) 99 121/48 (72) 11/23/17 14:47 98 40 . Laboratory Tests Test 11/22/17 14:08 11/23/17 04:25 White Blood Count 9.2 TH/MM3 10.3 TH/MM3 Red Blood Count 2.98 MIL/MM3 3.06 MIL/MM3 Hemoglobin 9.1 GM/DL 9.4 GM/DL Hematocrit 27.7 % 28.4 % Mean Corpuscular Volume 92.9 FL 92.8 FL Mean Corpuscular Hemoglobin 30.6 PG 30.9 PG Mean Corpuscular Hemoglobin Concent 33.0 % 33.2 % Red Cell Distribution Width 18.2 % 18.1 % Platelet Count 143 TH/MM3 140 TH/MM3 Mean Platelet Volume 10.2 FL 10.1 FL Laboratory Tests Test 11/22/17 14:08 11/23/17 04:25 Lactate Dehydrogenase 217 U/L Total Protein 5.2 GM/DL Blood Urea Nitrogen 27 MG/DL Creatinine 6.35 MG/DL Random Glucose 151 MG/DL Calcium Level 8.0 MG/DL Sodium Level 135 MEQ/L Potassium Level 4.2 MEQ/L Chloride Level 96 MEQ/L Carbon Dioxide Level 23.9 MEQ/L Anion Gap 15 MEQ/L Estimat Glomerular Filtration Rate 9 ML/MIN Microbiology Date/Time Source Procedure Growth Status 11/24/17 04:13 Blood Peripheral Blood Fungal Culture Pending Received 11/24/17 04:13 Blood Peripheral Blood Fungal Culture Pending Received 11/22/17 15:38 Fluid Peritoneal Fluid Gram Stain - Final Resulted 11/22/17 15:38 Fluid Peritoneal Fluid Body Fluid Culture - Preliminary NO GROWTH IN 48 HOURS. Resulted 11/23/17 17:40 Catheter Tip Central Venous Line Fungal Culture Pending Received 11/23/17 17:40 Catheter Tip Central Venous Line Wound Culture Pending Received Imaging Lower Extremity Ultrasound 11/13/17 0000 Signed Impressions: Service Date/Time: Monday, November 13, 2017 07:52 - CONCLUSION: No DVT seen in either leg. Jewel Kaiser MD Hand X-Ray 11/13/17 0000 Signed Impressions: Service Date/Time: Monday, November 13, 2017 10:18 - CONCLUSION: Osteoporosis. Extensive arterial calcifications. 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 No definite evidence of bony destruction or osteomyelitis Jared Upton MD Physical Exam GENERAL: Sedated on the vent, NAD SKIN: Cool and dry. No rash EYES: [place] conjunctiva. No petechia or hemorrhage. No scleral icterus. EARS, NOSE AND THROAT: NAD. NECK: Trachea midline, supple and not tender CARDIOVASCULAR: Regular rate and rhythm. Has systolic murmur over L precordium and base of the heart RESPIRATORY: Clear to auscultation. No rales, wheezing or rhonchi. Decreased at both bases ABDOMEN: Soft, and non-tender, bowel sounds present and hypoactive. No guarding. No rebound. Liver edge palpable on R side of abdomen, not tender. EXTREMITIES: No clubbing, cyanosis. Has edema of both feet. Dry gangrene noted. NEUROLOGICAL: Opens eyes, moves all 4 extremities, responds to some simple Qs. PSYCHIATRIC: cooperative. Assessment & Plan Remarks IMPRESSION Septic Thrombophlebitis: Enterobacter Enterobacter bacteremia, BC 11/05 (+), ?source - permacath C/S negative (?due to previous Abx) - concern with infected thrombus LUE AVF - ?other endovascular focus Thrombosis DRIL LUE AVF S/P Bypass LUE and ligation of AVF and DRIL ESRD on HD MWF Ascites, ?primary liver problem or other etiology LMF dry gangrene RECOMMENDATION Continue IV Rocephin If fevers persist please abarca culture and broaden coverage as possible left groin related line infection as source of infection. Nystatin application locally to left groin. ? Fungal infection. s.p 1 dose of Micafungin. Follow clinically. to resume care starting 11/26/2017. Will follow prn over the weekend. D/W Maria De Jesus Griggs MD Nov 24, 2017 13:54
[2017-11-24] MEDS: NYSTATIN 100,000 UNIT/GM CREAM 15 GM TOPICAL SCH ×2 (14:00→21:00)
[2017-11-24 14:57] LABS: AMYLASE BODY FLUID 26 U/L; AMYLASE BODY FLUID TYPE PERITONEAL
[2017-11-24] MEDS: cefTRIAXone INJ 2,000 MG in SODIUM CHLORIDE 0.9% INJ 100 ML IV SCH (16:00)
[2017-11-25] VITALS (8 sets, daily range): BP systolic 102–127; BP diastolic 41–71; PULSE 59–89; RESP 16–24; TEMP 97.9–98.7; O2SAT 97–99
[2017-11-25] MEDS: LEVOTHYROXINE SODIUM 125 MCG TAB PO SCH (05:38)
[2017-11-25] MEDS: HEPARIN SODIUM - SQ 10,000 UNITS/ML VIAL SQ SCH ×3 (05:38→21:54)
[2017-11-25] MEDS: INSULIN ASPART SUPPLEMENTAL SCALE SQ SCH ×4 (08:00→21:00)
[2017-11-25] MEDS: DOCUSATE SODIUM 50 MG/SENNA 8.6 MG TAB PO SCH ×2 (09:00→21:00)
[2017-11-25] MEDS: GABAPENTIN 100 MG CAP PO SCH ×3 (09:00→18:34)
[2017-11-25] MEDS: THYROID 60 MG TAB PO SCH ×2 (09:00→21:00)
[2017-11-25] MEDS: PANTOPRAZOLE SOD 20 MG DELAYED RELEASE TAB PO SCH (09:00)
[2017-11-25] MEDS: CALCIUM ACETATE 667 MG CAP PO SCH ×3 (09:00→18:35)
[2017-11-25] MEDS: CARVEDILOL 3.125 MG TAB PO SCH ×2 (09:00→21:00)
--- NOTE | 2017-11-25 10:21 | HHI.NPPN ---
Subjective History of Present Illness Patient is a 67-year-old male with a history of end-stage renal disease on hemodialysis Sunday/Sunday/ Sunday, diabetes, CAD, CHF, hypertension was transferred from [facility] to be evaluated by vascular surgery. Patient states he was admitted to [facility] because he had low blood pressure readings at home. AV fistula has not been functioning or used for 6- 8 weeks and they have been using a permacath for dialysis. Permacath has been removed secondary to possible infection and vas cath has been placed. He has been treated with cefepime IV. Last dialysis was Sunday and 1.5 L removed. Patient has a necrotic left middle finger that patient states has been going on for the last 12 weeks. Additional Remarks Patient is awake, now with nasal cannula and not fully oriented, refusing medications. Review of Systems Genitourinary Remarks Objective Data Data Vital Signs Date Time Temp Pulse Resp B/P (MAP) Pulse Ox O2 Delivery O2 Flow Rate FiO2 11/25/17 07:18 99 Nasal Cannula 3.00 11/25/17 07:00 98.2 67 20 107/56 (73) 99 111/56 (74) 11/25/17 07:00 99 Nasal Cannula 2.00 11/25/17 07:00 69 11/25/17 05:00 65 125/52 11/25/17 04:00 59 103/49 11/25/17 03:00 59 11/25/17 03:00 98.7 79 16 110/57 (74) 99 115/49 (71) 11/25/17 03:00 99 Nasal Cannula 2.00 11/25/17 03:00 79 115/49 11/25/17 01:00 64 109/50 11/24/17 23:00 67 11/24/17 23:00 99 Nasal Cannula 2.00 11/24/17 23:00 98.1 62 16 115/63 (80) 99 102/54 (70) 11/24/17 23:00 62 102/54 11/24/17 19:30 97 Nasal Cannula 3.00 11/24/17 19:00 62 11/24/17 19:00 99 Nasal Cannula 6.00 11/24/17 19:00 98.4 65 16 104/53 (70) 99 117/62 (80) 11/24/17 19:00 65 117/62 11/24/17 17:17 59 119/51 11/24/17 15:00 98.3 59 20 91/46 (61) 99 104/43 (63) 11/24/17 15:00 59 11/24/17 15:00 99 Nasal Cannula 3.00 11/24/17 11:00 99 Nasal Cannula 5.00 11/24/17 11:00 62 11/24/17 11:00 98.5 65 24 99 105/43 (63) 11/24/17 10:26 99 Nasal Cannula 5.00 11/24/17 10:26 100 Nasal Cannula 5 -: 11/23/17 0425 11/23/17 0425 Tubes & Lines: Perma-Cath Physical Exam General Appearance: No Acute Distress, Comfortable Eyes Eye Exam: Pupils Equal Throat Throat Exam: Oral Mucosa [place] & Moist Pulmonary Resp Exam: Clear Bilaterally, Breath Sounds Equal, No Distress Cardiology CV Exam: Regular Gastrointestinal/Abdomen GI Exam: Soft, Non-Tender, Bowel Sounds Present Extremeties Extremities Exam: Moderate Edema (Left arm and hand swelling.) Neurologic Neuro Exam: Alert, Awake Psychiatric Psych Exam: Appropriate Responses Assessment/Plan Discussed Condition With: Spouse Assessment Summary: End Stage Renal Disease Problem List: (1) ESRD (end stage renal disease) on dialysis ICD Codes: N18.6 - End stage renal disease; Z99.2 - Dependence on renal dialysis Plan: Dialysis MWF s/p L UE bypass 2/6 ligation of AVF and DRIL On ventilator CPAP trail underway Perma cath placement 11/21. HD yesterday with 2 liters removed Labs reviewed. Calcium low protein corrected calcium ordered Anemia Epogen with dialysis Post Paracentesis done 11/22/17. Possibly will need GT for feeding and meds. HD will be in AM. (2) Gangrene of finger of left hand ICD Codes: I96 - Gangrene, not elsewhere classified Plan: necrotic area on left hand middle finger Hand surgery consulted surgery planned for this week (3) AV fistula occlusion ICD Codes: T82.898A - Other specified complication of vascular prosthetic devices, implants and grafts, initial encounter Plan: s/p L UE bypass 2/6 ligation of AVF and DRIL (4) Diabetes mellitus ICD Codes: E11.9 - Type 2 diabetes mellitus without complications Plan: Maintain BS between 140mg/dl to 180 mg/dl Jumani,Deyanira Q. MD Nov 25, 2017 10:21
[2017-11-25] MEDS: NYSTATIN 100,000 UNIT/GM CREAM 15 GM TOPICAL SCH ×2 (11:48→21:00)
--- NOTE | 2017-11-25 13:30 | HHI.CCPN ---
Subjective Remarks/Hospital Course 67-year-old male, has been at [facility] for the last 15 days, transferred to [facility] for vascular evaluation. Patient has known end-stage renal disease and gets hemodialysis every Sunday and Sunday. He had a left upper extremity AV fistula, and it had some problem, so he underwent left upper extremity access revision, left upper extremity distal revascularization and interval ligation, last August 07, 2017. He was discharged, and apparently the fistula was working okay, and during that admission also he had that left middle finger dry gangrene which was felt to be ischemic in nature due to steal syndrome. As an outpatient, his fistula apparently stopped working, so he had a permacath placed in his right IJ. Patient stated that he's had problem on and off with low blood pressure for the last 4 months. The hypotension were getting worse and he ended up getting admitted at [facility] where he stayed for at least 15 days. During that admission, he had some positive blood culture done on November 05 that grew Enterobacter cloaca. Blood culture from November 07 were negative. His permacath was removed on November 07 and the culture of that was negative. Patient underwent L UE bypass brachial-brachial and ligation of the AV fistula. Is scheduled for permacath placement tomorrow morning and remains in the ICU sedated and intubated. Subjective: 11/21: Afebrile .The patient remains intubated and sedated. Plan for permacath placement this a.m.. Will resume ventilator weaning postoperatively. 11/22: Attempted CPAP trials postoperatively yesterday, unsuccessful. Patient continues on phenylephrine currently a 60 mics/minute. Propofol discontinued Precedex infusion initiated CPAP trials are reinitiated this a.m. with plans for SBT later this morning and possible extubation. 11/23: Getting HD. Patient is awake, but very weak. On CPAP but requiring high pressure support 20. Had US guided paracentesis yesterday with 6L fluid removed- chylous. Remains on Precedex and remains on Shon-Synephrine at 60 mcg/min increased to 100 mcg/min 11/24: Remains intubated off all sedation. Requiring Shon-Synephrine at 80 mcg/ min to keep map above 65. HD with 2L removed. Left groin central line was removed and right groin hemodialysis catheter was removed yesterday 11/23/17. New right IJ central line placed yesterday 11/25: Extubated yesterday tolerating well respiratory harris. Remains on Shon- Synephrine to maintain map above 65. Cultures remain negative. Patient intermittently not cooperative with care. He is oriented 2 Objective Vital Signs Date Time Temp Pulse Resp B/P (MAP) Pulse Ox O2 Delivery O2 Flow Rate FiO2 11/25/17 11:00 73 11/25/17 11:00 99 Nasal Cannula 2.00 11/25/17 11:00 98.4 24 118/67 (84) 127/63 (84) 11/24/17 08:12 40 Intake and Output 11/25/17 11/25/17 11/26/17 08:00 16:00 00:00 Intake Total 120 ml Output Total 0 ml Balance 120 ml Result Diagram: 11/23/17 0425 11/23/17 0425 Other Results Microbiology Date/Time Source Procedure Growth Status 11/22/17 15:38 Fluid Peritoneal Fluid Gram Stain - Final Complete 11/22/17 15:38 Fluid Peritoneal Fluid Body Fluid Culture - Final NO GROWTH IN 72 HRS.--AEROBICALLY OR ... Complete 11/23/17 17:40 Catheter Tip Central Venous Line Fungal Culture - Final Complete 11/23/17 17:40 Catheter Tip Central Venous Line Wound Culture - Final NO GROWTH IN 48 HOURS. Complete Imaging Last Impressions Chest X-Ray 11/20/17 0000 Signed Impressions: Service Date/Time: Monday, November 20, 2017 23:22 - CONCLUSION: 1. The superior aspect of the left hemithorax has multiple overlying structures which could obscure a small pneumothorax. Given this limitation, no pneumothorax is identified. 2. Small bilateral pleural effusions with atelectasis at the bases. Sami Deng MD Lower Extremity Ultrasound 11/13/17 0000 Signed Impressions: Service Date/Time: Monday, November 13, 2017 07:52 - CONCLUSION: No DVT seen in either leg. Jewel Kaiser MD Hand X-Ray 11/13/17 0000 Signed Impressions: Service Date/Time: Monday, November 13, 2017 10:18 - CONCLUSION: Osteoporosis. Extensive arterial calcifications. 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 No definite evidence of bony destruction or osteomyelitis Jared Upton MD Objective Remarks GENERAL: Lying on bed breathing comfortably SKIN: Warm and dry. HEAD: Normocephalic. EYES: No scleral icterus. No injection or drainage. NECK: Supple, trachea midline. No JVD or lymphadenopathy. CARDIOVASCULAR: Regular rate and rhythm without murmurs, gallops, or rubs. Shon- Synephrine 30 mcg/min RESPIRATORY: Breath sounds equal bilaterally, diminished at the bases. No accessory muscle use. GASTROINTESTINAL: Abdomen soft, non-tender, protuberant MUSCULOSKELETAL: No cyanosis, or edema. Noted dry gangrene left middle digit. L groin central line site erythematous BACK: Nontender without obvious deformity. NEURO EXAM: Alert awake oriented 2, pupils brisk and 2 mm bilaterally. Follows commands weakly on all 4 extremities Procedures 11/20 Sp LUE angiogram. 11/21 permacath placement A/P Assessment and Plan Neuro: Metabolic encephalopathy - DCd all sedation -Continue PT OT speech Resp: Acute respiratory failure - Postoperative respiratory failure with failure to wean - Extubated 11/24/17 tolerating well - Duo nebs every 6 hours when necessary for wheezing - EzPAP Acapella CVS: Hypotension Bilateral upper extremity ischemia - s/p L UE bypass - plastics/hand surgery - potential L digit treatment later in the week. - Currently on Shon-Synephrine to keep map above 65 - Increase Midrin to 10 mg every 8 hours - Hold carvedilol for hypotension GI: - Large-volume ascites removed 11/22/17 - f/u cultures-negative to date : End-stage renal disease - Hemodialysis per nephrology - Permacath placement 11/21 Endo: Diabetes mellitus - Insulin sliding scale ID: Bacteremia Sepsis Possible left femoral line site infection - Antibiotics per ID (Rocephin) - Repeat blood culture added vancomycin - Single dosed of Micafungin given 11/23/17 for erythema around the left central line site DVT GI prophylaxis - Teds SCDs - Subcutaneous heparin - Pepcid DCd Femoral central line and vascath 11/23/17 New RIJ central line placed 11/23 Critical Care: This patient remains critically ill with one or more organ systems which are or may become a threat to life. I have spent in excess of 30 minutes discontinuously in the care and management of this patient. This time is exclusive of procedures, and includes, but is not limited to, evaluation of the patient, review of the medical record, discussions with family, consultants , nursing staff, or respiratory therapy, and documentation in the medical record. Pratik Gallardo MD Nov 25, 2017 13:30
[2017-11-25] MEDS: CLOPIDOGREL 75 MG TAB PO SCH (14:00)
[2017-11-25 15:43] LABS: AUTOMATED NEUTROPHIL # 7.3 TH/MM3 (1.8-7.7); BASOPHIL # 0.1 TH/MM3 (0-0.2); BASOPHIL % 0.9 % (0.0-2.0); EOSINOPHIL # 0.3 TH/MM3 (0-0.4); EOSINOPHIL % 2.5 % (0.0-4.0); HEMOGLOBIN 8.7 GM/DL (13.0-17.0); LYMPH % 6.9 % (9.0-44.0); LYMPHOCYTE # 0.7 TH/MM3 (1.0-4.8); MEAN CELL VOLUME 93.8 FL (80.0-100.0); MEAN CORPUSCULAR HEMOGLOBIN 30.4 PG (27.0-34.0); MEAN CORPUSCULAR HGB CONC 32.4 % (32.0-36.0); MEAN PLATELET VOLUME 9.6 FL (7.0-11.0); MONO % 17.9 % (0.0-8.0); MONOCYTE # 1.8 TH/MM3 (0-0.9); NEUT % 71.8 % (16.0-70.0); PLATELET COUNT 122 TH/MM3 (150-450); RED BLOOD COUNT 2.87 MIL/MM3 (4.50-5.90); RED CELL DISTRIBUTION WIDTH 17.4 % (11.6-17.2); WHITE BLOOD COUNT 10.2 TH/MM3 (4.0-11.0)
--- NOTE | 2017-11-25 15:53 | PD.VS.PN ---
Subjective POD #: 5 Procedure(s): L brachial-brachial bypass, ligation of AVF Subjective/Hospital Course Extubated somnolent but recognizes me by name and interacts says he would like to try po Objective Vitals/I&O Date Time Temp Pulse Resp B/P (MAP) Pulse Ox O2 Delivery O2 Flow Rate FiO2 11/25/17 15:00 98.1 72 24 110/51 (70) 97 125/65 (85) 11/25/17 15:00 72 11/25/17 15:00 97 Nasal Cannula 2.00 11/25/17 11:00 73 11/25/17 11:00 99 Nasal Cannula 2.00 11/25/17 11:00 98.4 73 24 118/67 (84) 99 127/63 (84) 11/25/17 07:18 99 Nasal Cannula 3.00 11/25/17 07:00 98.2 67 20 107/56 (73) 99 111/56 (74) 11/25/17 07:00 99 Nasal Cannula 2.00 11/25/17 07:00 69 11/25/17 05:00 65 125/52 11/25/17 04:00 59 103/49 11/25/17 03:00 59 11/25/17 03:00 98.7 79 16 110/57 (74) 99 115/49 (71) 11/25/17 03:00 99 Nasal Cannula 2.00 11/25/17 03:00 79 115/49 11/25/17 01:00 64 109/50 11/24/17 23:00 67 11/24/17 23:00 99 Nasal Cannula 2.00 11/24/17 23:00 98.1 62 16 115/63 (80) 99 102/54 (70) 11/24/17 23:00 62 102/54 11/24/17 19:30 97 Nasal Cannula 3.00 11/24/17 19:00 62 11/24/17 19:00 99 Nasal Cannula 6.00 11/24/17 19:00 98.4 65 16 104/53 (70) 99 117/62 (80) 11/24/17 19:00 65 117/62 11/24/17 17:17 59 119/51 11/25/17 11/25/17 11/25/17 07:00 15:00 23:00 Intake Total 120 ml Output Total 0 ml Balance 120 ml Exam: L UE edematous incision intact with priya, no erythema Strong ulnar, radial and palmar arch signals Laboratory Laboratory Tests Test 11/25/17 14:14 11/25/17 14:44 White Blood Count 10.2 Red Blood Count 2.87 Hemoglobin 8.7 Hematocrit 27.0 Mean Corpuscular Volume 93.8 Mean Corpuscular Hemoglobin 30.4 Mean Corpuscular Hemoglobin Concent 32.4 Red Cell Distribution Width 17.4 Platelet Count 122 Mean Platelet Volume 9.6 Neutrophils (%) (Auto) 71.8 Lymphocytes (%) (Auto) 6.9 Monocytes (%) (Auto) 17.9 Eosinophils (%) (Auto) 2.5 Basophils (%) (Auto) 0.9 Neutrophils # (Auto) 7.3 Lymphocytes # (Auto) 0.7 Monocytes # (Auto) 1.8 Eosinophils # (Auto) 0.3 Basophils # (Auto) 0.1 CBC Comment DIFF FINAL Differential Comment Date/Time Source Procedure Growth Status 11/24/17 04:13 Blood Peripheral Blood Fungal Culture Pending Received 11/24/17 04:13 Blood Peripheral Blood Fungal Culture Pending Received 11/22/17 15:38 Fluid Peritoneal Fluid Gram Stain - Final Complete 11/22/17 15:38 Fluid Peritoneal Fluid Body Fluid Culture - Final NO GROWTH IN 72 HRS.--AEROBICALLY OR ... Complete 11/23/17 17:40 Catheter Tip Central Venous Line Fungal Culture - Final Complete Assessment and Plan Plan POD# 5 S/p L UE bypass, access ligation UE warm and bypass patent by exam Continue antiplatelet therapy for cardiac stents no additional medical therapy needed for arm bypass continue pulse checks Discharge Planning Anytime from a vascular surgery standpoint but clearly many other issues (ID, mental status, cardiac, renal) Issa Jansen MD Nov 25, 2017 15:53
[2017-11-25 15:56] LABS: ALBUMIN 2.3 GM/DL (3.4-5.0); AST (GOT) 11 U/L (15-37); BLOOD UREA NITROGEN 22 MG/DL (7-18); CALCIUM 7.8 MG/DL (8.5-10.1); CHLORIDE 98 MEQ/L (98-107); CREATININE 6.03 MG/DL (0.60-1.30); GLOMERULAR FILTRATION RATE 9 ML/MIN (>89); GLUCOSE,RANDOM 125 MG/DL (74-106); SODIUM (NA) 134 MEQ/L (136-145)
[2017-11-25 16:00] LABS: ALKALINE PHOSPHATASE 245 U/L (45-117); ALT (GPT) 8 U/L (12-78); TOTAL BILIRUBIN ADULT 0.5 MG/DL (0.2-1.0); TOTAL PROTEIN 4.9 GM/DL (6.4-8.2)
[2017-11-25] MEDS: ASPIRIN EC 81 MG TABEC PO SCH (16:00)
[2017-11-25] MEDS: RESP: ALBUTEROL 2.5 MG/IPRATROPIUM 0.5 MG NEB (SCH) NEB ×2 (17:19→21:30)
[2017-11-25] MEDS: BACITRACIN TOP OINT 15 GM TUBE TOPICAL SCH ×2 (17:35→21:00)
[2017-11-25] MEDS: cefTRIAXone INJ 2,000 MG in SODIUM CHLORIDE 0.9% INJ 100 ML IV SCH (17:35)
[2017-11-25] MEDS: SODIUM CHLORIDE 0.9% FLUSH 10 ML FLUSH IV FLUSH SCH ×2 (17:36→21:00)
[2017-11-25] MEDS: MIDODRINE 5 MG TAB PO SCH (18:35)
[2017-11-26] VITALS (9 sets, daily range): BP systolic 99–124; BP diastolic 46–65; PULSE 63–90; RESP 14–18; TEMP 97.6–98.7; O2SAT 96–100
[2017-11-26] MEDS: RESP: ALBUTEROL 2.5 MG/IPRATROPIUM 0.5 MG NEB (SCH) NEB ×4 (03:34→19:42)
[2017-11-26 05:08] LABS: AUTOMATED NEUTROPHIL # 5.4 TH/MM3 (1.8-7.7); BASOPHIL # 0.1 TH/MM3 (0-0.2); BASOPHIL % 0.9 % (0.0-2.0); EOSINOPHIL # 0.3 TH/MM3 (0-0.4); EOSINOPHIL % 3.4 % (0.0-4.0); HEMATOCRIT 23.8 % (39.0-51.0); HEMOGLOBIN 7.8 GM/DL (13.0-17.0); LYMPH % 7.6 % (9.0-44.0); LYMPHOCYTE # 0.6 TH/MM3 (1.0-4.8); MEAN CELL VOLUME 92.8 FL (80.0-100.0); MEAN CORPUSCULAR HEMOGLOBIN 30.3 PG (27.0-34.0); MEAN CORPUSCULAR HGB CONC 32.7 % (32.0-36.0); MEAN PLATELET VOLUME 9.8 FL (7.0-11.0); MONO % 18.2 % (0.0-8.0); MONOCYTE # 1.4 TH/MM3 (0-0.9); NEUT % 69.9 % (16.0-70.0); PLATELET COUNT 102 TH/MM3 (150-450); RED BLOOD COUNT 2.56 MIL/MM3 (4.50-5.90); RED CELL DISTRIBUTION WIDTH 17.7 % (11.6-17.2); WHITE BLOOD COUNT 7.8 TH/MM3 (4.0-11.0)
--- NOTE | 2017-11-26 05:21 | RADRPT ---
EXAM DATE/TIME: 11/26/2017 04:27 [facility] COMPARISON: CHEST SINGLE AP, November 24, 2017, 8:21. INDICATIONS : Short of breath. MEDICAL HISTORY : Myocardial infarction. Congestive heart failure. Hypothyroidism. Hearing loss. Neuropathy. Afib. Hype rtension. Sleep apnea. Renal disease. Liverdisease. Arthritis. Diabetes. Depression. Anxiety. Skin ca ncer. Blood trasnfusion. SURGICAL HISTORY : CABG Pacemaker. Right rotator cuff. Internal defibrillator. Mitral valve replacement. Abdominal absce ss drainage. Bilateral cataract removal.Removal of sternum wires. Skin cancer removal. ENCOUNTER: Subsequent ACUITY: 1 week PAIN SCORE: 0/10 LOCATION: Bilateral chest FINDINGS: There is mild airspace disease at the bases, elevation of the right hemidiaphragm and bilateral effus ions right greater than left. Dialysis catheter and pacer device again seen. Right jugular line again noted. Endotracheal tube has been removed. CONCLUSION: No significant change has occurred. Billy Person MD on November 26, 2017 at 5:19 Board Certified Radiologist. This report was verified electronically.
[2017-11-26 05:27] LABS: ALBUMIN 1.9 GM/DL (3.4-5.0); AST (GOT) 9 U/L (15-37); BICARBONATE 26.9 MEQ/L (21.0-32.0); BLOOD UREA NITROGEN 25 MG/DL (7-18); CHLORIDE 97 MEQ/L (98-107); CREATININE 6.49 MG/DL (0.60-1.30); GLOMERULAR FILTRATION RATE 9 ML/MIN (>89); GLUCOSE,RANDOM 95 MG/DL (74-106); SODIUM (NA) 134 MEQ/L (136-145)
[2017-11-26 05:28] LABS: ALT (GPT) LESS THAN 6 U/L (12-78)
[2017-11-26 05:31] LABS: ALKALINE PHOSPHATASE 221 U/L (45-117); TOTAL BILIRUBIN ADULT 0.4 MG/DL (0.2-1.0); TOTAL PROTEIN 4.6 GM/DL (6.4-8.2)
[2017-11-26] MEDS: LEVOTHYROXINE SODIUM 125 MCG TAB PO SCH (06:00)
[2017-11-26] MEDS: HEPARIN SODIUM - SQ 10,000 UNITS/ML VIAL SQ SCH ×2 (06:00→22:48)
--- NOTE | 2017-11-26 07:07 | PD.VS.PN ---
Subjective POD #: 6 Procedure(s): L brachial-brachial bypass, ligation of AVF Subjective/Hospital Course More somnolent this morning [place] Objective Vitals/I&O Date Time Temp Pulse Resp B/P (MAP) Pulse Ox O2 Delivery O2 Flow Rate FiO2 11/26/17 03:00 82 11/26/17 03:00 97 Nasal Cannula 2.00 11/26/17 03:00 97.6 70 16 119/47 (71) 100 99/46 (63) 11/25/17 23:00 98.0 89 16 102/49 (66) 99 113/71 (85) 11/25/17 23:00 97 Nasal Cannula 4.00 11/25/17 23:00 89 11/25/17 21:31 97 Nasal Cannula 2.00 11/25/17 19:00 71 11/25/17 19:00 97.9 68 16 116/41 (66) 97 105/41 (62) 11/25/17 19:00 97 Nasal Cannula 2.00 11/25/17 17:35 74 99/42 11/25/17 15:00 98.1 72 24 110/51 (70) 97 125/65 (85) 11/25/17 15:00 72 11/25/17 15:00 97 Nasal Cannula 2.00 11/25/17 11:00 73 11/25/17 11:00 99 Nasal Cannula 2.00 11/25/17 11:00 98.4 73 24 118/67 (84) 99 127/63 (84) 11/25/17 07:18 99 Nasal Cannula 3.00 11/26/17 11/26/17 11/26/17 07:00 15:00 23:00 Intake Total 0 ml Output Total 0 ml Balance 0 ml Exam: L arm edematous incision intact without erythema strong Doppler signals ulnar, radial, palmar arch tissue loss stable of the digit Laboratory Laboratory Tests Test 11/25/17 14:14 11/25/17 14:44 11/26/17 03:10 11/26/17 03:40 Blood Urea Nitrogen 22 25 Creatinine 6.03 6.49 Random Glucose 125 95 Total Protein 4.9 4.6 Albumin 2.3 1.9 Calcium Level 7.8 8.0 Alkaline Phosphatase 245 221 Aspartate Amino Transf (AST/SGOT) 11 9 Alanine Aminotransferase (ALT/SGPT) 8 LESS THAN 6 Total Bilirubin 0.5 0.4 Sodium Level 134 134 Potassium Level 4.0 4.0 Chloride Level 98 97 Carbon Dioxide Level 26.0 26.9 Anion Gap 10 10 Estimat Glomerular Filtration Rate 9 9 White Blood Count 10.2 7.8 Red Blood Count 2.87 2.56 Hemoglobin 8.7 7.8 Hematocrit 27.0 23.8 Mean Corpuscular Volume 93.8 92.8 Mean Corpuscular Hemoglobin 30.4 30.3 Mean Corpuscular Hemoglobin Concent 32.4 32.7 Red Cell Distribution Width 17.4 17.7 Platelet Count 122 102 Mean Platelet Volume 9.6 9.8 Neutrophils (%) (Auto) 71.8 69.9 Lymphocytes (%) (Auto) 6.9 7.6 Monocytes (%) (Auto) 17.9 18.2 Eosinophils (%) (Auto) 2.5 3.4 Basophils (%) (Auto) 0.9 0.9 Neutrophils # (Auto) 7.3 5.4 Lymphocytes # (Auto) 0.7 0.6 Monocytes # (Auto) 1.8 1.4 Eosinophils # (Auto) 0.3 0.3 Basophils # (Auto) 0.1 0.1 CBC Comment DIFF FINAL DIFF FINAL Differential Comment Date/Time Source Procedure Growth Status 11/24/17 04:13 Blood Peripheral Blood Fungal Culture Pending Received 11/24/17 04:13 Blood Peripheral Blood Fungal Culture Pending Received 11/22/17 15:38 Fluid Peritoneal Fluid Gram Stain - Final Complete 11/22/17 15:38 Fluid Peritoneal Fluid Body Fluid Culture - Final NO GROWTH IN 72 HRS.--AEROBICALLY OR ... Complete 11/23/17 17:40 Catheter Tip Central Venous Line Fungal Culture - Final Complete Assessment and Plan Plan POD# 6 S/p L UE bypass, access ligation UE warm and bypass patent by exam Continue medical management Discharge Planning Anytime from a vascular surgery standpoint but clearly many other issues (ID, mental status, cardiac, renal) Issa Jansen MD Nov 26, 2017 07:07
[2017-11-26] MEDS: EPOETIN ALFA 10,000 UNITS/ML VIAL IV PUSH PRN (07:13)
[2017-11-26] MEDS: GENTAMICIN SULFATE 20 MG/2 ML VIAL OTHER PRN (07:14)
[2017-11-26] MEDS: HEPARIN SODIUM - IV 10,000 UNITS/10 ML VIAL PRN (07:14)
[2017-11-26] MEDS: ALBUMIN 25% INJ 100 ML IV PRN ×2 (07:14→07:15)
[2017-11-26] MEDS: INSULIN ASPART SUPPLEMENTAL SCALE SQ SCH ×4 (08:00→21:00)
[2017-11-26] MEDS: PHENYLEPHRINE 40 MG in D5W 500 ML IV PRN (08:22)
--- NOTE | 2017-11-26 09:14 | HHI.CCPN ---
Subjective Remarks/Hospital Course 67-year-old male, has been at [facility] for the last 15 days, transferred to [facility] for vascular evaluation. Patient has known end-stage renal disease and gets hemodialysis every Sunday and Sunday. He had a left upper extremity AV fistula, and it had some problem, so he underwent left upper extremity access revision, left upper extremity distal revascularization and interval ligation, last August 07, 2017. He was discharged, and apparently the fistula was working okay, and during that admission also he had that left middle finger dry gangrene which was felt to be ischemic in nature due to steal syndrome. As an outpatient, his fistula apparently stopped working, so he had a permacath placed in his right IJ. Patient stated that he's had problem on and off with low blood pressure for the last 4 months. The hypotension were getting worse and he ended up getting admitted at [facility] where he stayed for at least 15 days. During that admission, he had some positive blood culture done on November 05 that grew Enterobacter cloaca. Blood culture from November 07 were negative. His permacath was removed on November 07 and the culture of that was negative. Patient underwent L UE bypass brachial-brachial and ligation of the AV fistula. Is scheduled for permacath placement tomorrow morning and remains in the ICU sedated and intubated. Subjective: 11/21: Afebrile .The patient remains intubated and sedated. Plan for permacath placement this a.m.. Will resume ventilator weaning postoperatively. 11/22: Attempted CPAP trials postoperatively yesterday, unsuccessful. Patient continues on phenylephrine currently a 60 mics/minute. Propofol discontinued Precedex infusion initiated CPAP trials are reinitiated this a.m. with plans for SBT later this morning and possible extubation. 11/23: Getting HD. Patient is awake, but very weak. On CPAP but requiring high pressure support 20. Had US guided paracentesis yesterday with 6L fluid removed- chylous. Remains on Precedex and remains on Shon-Synephrine at 60 mcg/min increased to 100 mcg/min 11/24: Remains intubated off all sedation. Requiring Shon-Synephrine at 80 mcg/ min to keep map above 65. HD with 2L removed. Left groin central line was removed and right groin hemodialysis catheter was removed yesterday 11/23/17. New right IJ central line placed yesterday 11/25: Extubated yesterday tolerating well respiratory harris. Remains on Shon- Synephrine to maintain map above 65. Cultures remain negative. Patient intermittently not cooperative with care. He is oriented 2 11/26: At around 2 AM today had episode of unresponsiveness, correlating with hypotension was hard to awake. Currently patient is awake but very lethargic voice is very soft but oriented to person and place. I will hold the Neurontin avoid all sedation currently on Shon-Synephrine at 30 mcg/min. completed hemodialysis today with 3L removed Objective Vital Signs Date Time Temp Pulse Resp B/P (MAP) Pulse Ox O2 Delivery O2 Flow Rate FiO2 11/26/17 08:35 99 Nasal Cannula 2.00 11/26/17 08:22 66 112/47 11/26/17 03:00 97.6 16 11/24/17 08:12 40 Intake and Output 11/26/17 11/26/17 11/27/17 08:00 16:00 00:00 Intake Total 0 ml Output Total 0 ml 3000 ml Balance 0 ml -3000 ml Result Diagram: 11/26/17 0340 11/26/17 0310 Other Results Microbiology Date/Time Source Procedure Growth Status 11/23/17 17:40 Catheter Tip Central Venous Line Fungal Culture - Final Complete 11/23/17 17:40 Catheter Tip Central Venous Line Wound Culture - Final NO GROWTH IN 48 HOURS. Complete Imaging Last Impressions Chest X-Ray 11/20/17 0000 Signed Impressions: Service Date/Time: Monday, November 20, 2017 23:22 - CONCLUSION: 1. The superior aspect of the left hemithorax has multiple overlying structures which could obscure a small pneumothorax. Given this limitation, no pneumothorax is identified. 2. Small bilateral pleural effusions with atelectasis at the bases. Sami Deng MD Lower Extremity Ultrasound 11/13/17 0000 Signed Impressions: Service Date/Time: Monday, November 13, 2017 07:52 - CONCLUSION: No DVT seen in either leg. Jewel Kaiser MD Hand X-Ray 11/13/17 0000 Signed Impressions: Service Date/Time: Monday, November 13, 2017 10:18 - CONCLUSION: Osteoporosis. Extensive arterial calcifications. 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 No definite evidence of bony destruction or osteomyelitis Jared Upton MD Objective Remarks GENERAL: Lying on bed breathing lethargic but awake, remains on 30 mcg/min of Shon-Synephrine SKIN: Warm and dry. HEAD: Normocephalic. EYES: No scleral icterus. No injection or drainage. NECK: Supple, trachea midline. No JVD or lymphadenopathy. CARDIOVASCULAR: Regular rate and rhythm no gallops, or rubs. Systolic murmur at the left sternal border. Shon-Synephrine 30 mcg/min RESPIRATORY: Breath sounds equal bilaterally, diminished at the bases. No accessory muscle use. GASTROINTESTINAL: Abdomen soft, non-tender, protuberant MUSCULOSKELETAL: No cyanosis, or edema. Noted dry gangrene left middle digit. NEURO EXAM: Alert awake oriented 2, more lethargic today. Pupils brisk and 2 mm bilaterally. Follows commands weakly on all 4 extremities Procedures 11/20 Sp LUE angiogram. 11/21 permacath placement Vascular Central Line Catheter: Yes Assessment to: Continue A/P Assessment and Plan Neuro: Metabolic encephalopathy - DCd all sedation - Continue PT OT speech - Hold Neurontin - CT head today -Check TSH, B12, ammonia Resp: Acute respiratory failure - Postoperative respiratory failure with failure to wean - Extubated 11/24/17 tolerating well - Duo nebs every 6 hours when necessary for wheezing - EzPAP Acapella, IS as tolerated CVS: Hypotension Bilateral upper extremity ischemia - s/p L UE bypass - plastics/hand surgery - potential L digit treatment later - Currently on Shon-Synephrine to keep map above 65 - Midodrine 10 mg every 8 hours - Hold carvedilol for hypotension GI: - Large-volume ascites removed 11/22/17 - f/u cultures-negative to date : End-stage renal disease - Hemodialysis per nephrology, removed 3L today 11/26 - PermCath placement 11/21 Endo: Diabetes mellitus - Insulin sliding scale ID: Bacteremia Sepsis (Enterobacter bacteremia, BC 10/16) Possible left femoral line site infection - Antibiotics per ID (Rocephin) - Repeat blood culture neg to date - Single dosed of Micafungin given 11/23/17 for erythema around the left central line site DVT GI prophylaxis - Teds SCDs - Subcutaneous heparin - Pepcid DCd Femoral central line and vascath 11/23/17 New [facility] central line placed 11/23 Critical Care: This patient remains critically ill with one or more organ systems which are or may become a threat to life. I have spent in excess of 30 minutes discontinuously in the care and management of this patient. This time is exclusive of procedures, and includes, but is not limited to, evaluation of the patient, review of the medical record, discussions with family, consultants , nursing staff, or respiratory therapy, and documentation in the medical record. D/W Pratik Parker MD Nov 26, 2017 09:14
[2017-11-26] MEDS: BACITRACIN TOP OINT 15 GM TUBE TOPICAL SCH ×2 (10:09→22:49)
[2017-11-26] MEDS: NYSTATIN 100,000 UNIT/GM CREAM 15 GM TOPICAL SCH ×2 (10:09→22:49)
[2017-11-26] MEDS: PANTOPRAZOLE SOD 20 MG DELAYED RELEASE TAB PO SCH (10:10)
[2017-11-26] MEDS: ASPIRIN EC 81 MG TABEC PO SCH (10:11)
[2017-11-26] MEDS: THYROID 60 MG TAB PO SCH ×2 (10:11→22:48)
[2017-11-26] MEDS: CLOPIDOGREL 75 MG TAB PO SCH (10:12)
[2017-11-26] MEDS: SODIUM CHLORIDE 0.9% FLUSH 10 ML FLUSH IV FLUSH SCH ×2 (10:13→22:48)
[2017-11-26] MEDS: DOCUSATE SODIUM 50 MG/SENNA 8.6 MG TAB PO SCH ×2 (10:13→22:48)
[2017-11-26] MEDS: MIDODRINE 5 MG TAB PO SCH ×2 (11:53→18:46)
[2017-11-26] MEDS: CALCIUM ACETATE 667 MG CAP PO SCH ×3 (11:56→18:46)
--- NOTE | 2017-11-26 13:35 | HHI.IDPN ---
Subjective Subjective Remarks Patient is a 67-year-old male, has been at [facility] for the last 15 days, transferred to [facility] for vascular evaluation. Patient has known end-stage renal disease and gets hemodialysis every Sunday and Sunday. He had a left upper extremity AV fistula, and it had some problem, so he underwent left upper extremity access revision, left upper extremity distal revascularization and interval ligation, last August 07, 2017. He was discharged, and apparently the fistula was working okay, and during that admission also he had that left middle finger dry gangrene which was felt to be ischemic in nature due to steal syndrome. As an outpatient, his fistula apparently stopped working, so he had a permacath placed in his right IJ. Patient stated that he's had problem on and off with low blood pressure for the last 4 months. The hypotension were getting worse and he ended up getting admitted at [facility] where he stayed for at least 15 days. During that admission, he had some positive blood culture done on November 05 that grew Enterobacter cloaca. Blood culture from November 07 were negative. His permacath was removed on November 07 and the culture of that was negative. Patient was apparently getting IV cefepime, and there was an infectious disease specialist monitoring him for his infection. Patient stated that he's had some reaction to the cefepime and he describes it as burning sensation. Patient is currently afebrile. There was evaluation of his AV fistula which shows thrombosis of his DRIL. He has now been transferred to [facility] for vascular evaluation. Infectious disease consultation has been requested to evaluate for sepsis. Events of last 4 days reviewed D/W Dr Sami LUX D/W RN Last seen 11/21 still on the vent, extubated 11/24 Lethargic today Dropped BP earlier and became lethargic On Neosynephrine Last low grade temps 11/23 Afebrile today BC 11/15 negative Peritoneal fluid negative Vascath C/S negative Has new permacath placed 11/21, RIJ TLC 11/22 on Nov 20, performed Left brachial-brachial bypass with vein. Ligation of L UE AVF, Insertion of R brachial a-line with ultrasound, Had brachial-brachial bypass with vein, and ligation of AVF and DRIL. Had HD today Antibiotics Current Medications Medications (Trade) Dose Ordered Sig/Renny Route Start Time Stop Time Status Last Admin (NS Flush) 2 ml BID IV FLUSH 11/12/17 21:00 11/26/17 10:13 (Tylenol) 650 mg Q4H PRN PO 11/12/17 20:00 11/24/17 05:32 (Zofran Inj) 4 mg Q6H PRN IVP 11/12/17 20:00 (Narcan Inj) 0.4 mg UNSCH PRN IV PUSH 11/12/17 20:00 (Senokot) 17.2 mg Q12H PRN PO 11/12/17 20:00 (Synthroid) 125 mcg DAILY@0600 PO 11/13/17 06:00 11/26/17 06:00 (D50w (Vial) Inj) 50 ml UNSCH PRN IV PUSH 11/12/17 23:30 (Glucagon Inj) 1 mg UNSCH PRN OTHER 11/12/17 23:30 (NovoLOG SUPPLEMENTAL SCALE) 1 ACHS SLIDING SCALE SQ 11/13/17 08:00 11/20/17 17:00 (Phoslo) 667 mg TID PO 11/13/17 09:00 11/26/17 11:56 (Ecotrin Ec) 162 mg DAILY PO 11/13/17 09:00 11/26/17 10:11 (Plavix) 75 mg DAILY PO 11/13/17 09:00 Future hold 11/26/17 10:12 (Baciguent Oint) 1 applic Q12HR TOPICAL 11/13/17 21:00 11/26/17 10:09 Sodium Chloride 1,000 ml @ 0 mls/hr Q0M PRN OTHER 11/13/17 14:09 11/23/17 11:30 (Heparin Inj) 8,000 units UNSCH PRN IV FLUSH 11/13/17 14:15 11/15/17 15:23 Sodium Chloride 1,000 ml @ 200 mls/hr Q5H PRN IV 11/13/17 14:09 11/26/17 07:15 Sodium Chloride 1,000 ml @ 0 mls/hr Q0M PRN OTHER 11/13/17 14:09 (Mannitol Inj) 12.5 gm UNSCH PRN IV 11/13/17 14:15 11/17/17 11:53 Albumin Human 100 ml @ 60 mls/hr UNSCH PRN IV 11/13/17 14:15 11/26/17 07:15 (NS Flush) 5 ml UNSCH PRN IV FLUSH 11/13/17 14:15 (Heparin Inj) UNSCH PRN .XX 11/13/17 14:15 11/26/17 07:14 (Gentamicin Inj) 20 mg UNSCH PRN OTHER 11/13/17 14:15 11/26/17 07:14 (Zofran Inj) 4 mg UNSCH PRN IV PUSH 11/13/17 14:15 (Tylenol) 650 mg UNSCH PRN PO 11/13/17 14:15 11/18/17 08:40 (Benadryl) 25 mg UNSCH PRN PO 11/13/17 14:15 (Nitrostat Sl) 0.4 mg UNSCH PRN SL 11/13/17 14:15 (Catapres) 0.1 mg UNSCH PRN PO 11/13/17 14:15 (Epogen Inj) 4,000 units UNSCH PRN IV PUSH 11/13/17 14:15 11/26/17 07:13 (Gelfoam 12 Mm/7 Mm Top) 1 foam UNSCH PRN TOP 11/13/17 14:15 Ceftriaxone Sodium 2000 mg/ Sodium Chloride 100 ml @ 200 mls/hr Q24H IV 11/13/17 16:00 11/25/17 17:35 (Coreg) 3.125 mg BID PO 11/16/17 21:00 Future Hold 11/22/17 08:37 (Protonix) 20 mg DAILY PO 11/17/17 09:00 11/26/17 10:10 (Neurontin) 100 mg TID PO 11/20/17 18:00 Future Hold 11/25/17 18:34 ([place] Thyroid) 60 mg BID PO 11/20/17 21:00 11/26/17 10:11 (Roxicodone) 5 mg Q4H PRN PO 11/20/17 15:15 (Dilaudid) 2 mg Q4H PRN PO 11/20/17 15:15 (Morphine Inj) 2 mg Q1H PRN IV PUSH 11/20/17 15:15 (Marleny-Colace) 1 tab BID PO 11/20/17 21:00 11/26/17 10:13 (Milk Of Magnesia Liq) 30 ml Q12H PRN PO 11/20/17 15:15 (Senokot) 17.2 mg Q12H PRN PO 11/20/17 15:15 (Dulcolax Supp) 10 mg DAILY PRN RECTAL 11/20/17 15:15 (Lactulose Liq) 30 ml DAILY PRN PO 11/20/17 15:15 Propofol 100 ml @ 2.841 mls/ hr TITRATE PRN IV 11/20/17 16:00 Future Hold 11/22/17 03:36 Phenylephrine HCl 40 mg/Dextrose 500 ml @ 30 mls/hr TITRATE PRN IV 11/20/17 16:00 11/26/17 08:22 (Brethine Inj) 1 mg UNSCH PRN SQ 11/20/17 17:30 (NS Flush) 5 ml UNSCH PRN IV FLUSH 11/20/17 17:45 (Heparin Inj) 2,000 units UNSCH PRN IV FLUSH 11/20/17 17:45 (Duoneb Neb) 1 ampule Q4HR NEB PRN NEB 11/21/17 08:45 11/21/17 08:47 (Mycostatin Cream) 1 applic Q12HR TOPICAL 11/24/17 14:00 11/26/17 10:09 (Proamatine) 10 mg BID@0900,1800 PO 11/25/17 18:00 11/26/17 11:53 (Duoneb Neb) 1 ampule Q6HR NEB NEB 11/25/17 16:00 11/26/17 08:34 (Heparin Inj) 5,000 units Q12HR SQ 11/26/17 21:00 Lines CL site ok. Permacath site ok. Past Medical History ESRD DM CAD HF. HTN Enlarged liver, and ascites Past Surgical History Pacemaker CABGx4 with mitral valvuloplasty in february 2005 Right fifth toe amputation Right shoulder rotator cuff repair Has had repeated paracentesis to drain his ascites Allergies: Coded Allergies: adhesive (Unverified Adverse Reaction, Severe, SKIN BREAKDOWN/ULCERS, ) Uncoded Allergies: MSG (Allergy, Intermediate, bowel problems, 08/02/17) Objective . Vital Signs Date Time Temp Pulse Resp B/P (MAP) Pulse Ox O2 Delivery O2 Flow Rate FiO2 11/26/17 08:35 99 Nasal Cannula 2.00 11/26/17 08:22 66 112/47 11/26/17 07:00 99 Nasal Cannula 2.00 11/26/17 03:00 82 11/26/17 03:00 97 Nasal Cannula 2.00 11/26/17 03:00 97.6 70 16 119/47 (71) 100 99/46 (63) 11/25/17 23:00 98.0 89 16 102/49 (66) 99 113/71 (85) 11/25/17 23:00 97 Nasal Cannula 4.00 11/25/17 23:00 89 11/25/17 21:31 97 Nasal Cannula 2.00 11/25/17 19:00 71 11/25/17 19:00 97.9 68 16 116/41 (66) 97 105/41 (62) 11/25/17 19:00 97 Nasal Cannula 2.00 11/25/17 17:35 74 99/42 11/25/17 15:00 98.1 72 24 110/51 (70) 97 125/65 (85) 11/25/17 15:00 72 11/25/17 15:00 97 Nasal Cannula 2.00 11/26/17 11/26/17 11/27/17 15:00 23:00 07:00 Intake Total 0 ml Output Total 3000 ml Balance -3000 ml IV Total 0 ml Hemodialysis 3000 ml . Laboratory Tests Test 11/25/17 14:44 11/26/17 03:40 White Blood Count 10.2 TH/MM3 7.8 TH/MM3 Red Blood Count 2.87 MIL/MM3 2.56 MIL/MM3 Hemoglobin 8.7 GM/DL 7.8 GM/DL Hematocrit 27.0 % 23.8 % Mean Corpuscular Volume 93.8 FL 92.8 FL Mean Corpuscular Hemoglobin 30.4 PG 30.3 PG Mean Corpuscular Hemoglobin Concent 32.4 % 32.7 % Red Cell Distribution Width 17.4 % 17.7 % Platelet Count 122 TH/MM3 102 TH/MM3 Mean Platelet Volume 9.6 FL 9.8 FL Neutrophils (%) (Auto) 71.8 % 69.9 % Lymphocytes (%) (Auto) 6.9 % 7.6 % Monocytes (%) (Auto) 17.9 % 18.2 % Eosinophils (%) (Auto) 2.5 % 3.4 % Basophils (%) (Auto) 0.9 % 0.9 % Neutrophils # (Auto) 7.3 TH/MM3 5.4 TH/MM3 Lymphocytes # (Auto) 0.7 TH/MM3 0.6 TH/MM3 Monocytes # (Auto) 1.8 TH/MM3 1.4 TH/MM3 Eosinophils # (Auto) 0.3 TH/MM3 0.3 TH/MM3 Basophils # (Auto) 0.1 TH/MM3 0.1 TH/MM3 CBC Comment DIFF FINAL DIFF FINAL Differential Comment Laboratory Tests Test 11/25/17 14:14 11/26/17 03:10 11/26/17 10:00 Blood Urea Nitrogen 22 MG/DL 25 MG/DL Creatinine 6.03 MG/DL 6.49 MG/DL Random Glucose 125 MG/DL 95 MG/DL Total Protein 4.9 GM/DL 4.6 GM/DL Albumin 2.3 GM/DL 1.9 GM/DL Calcium Level 7.8 MG/DL 8.0 MG/DL Alkaline Phosphatase 245 U/L 221 U/L Aspartate Amino Transf (AST/SGOT) 11 U/L 9 U/L Alanine Aminotransferase (ALT/SGPT) 8 U/L LESS THAN 6 U/L Total Bilirubin 0.5 MG/DL 0.4 MG/DL Sodium Level 134 MEQ/L 134 MEQ/L Potassium Level 4.0 MEQ/L 4.0 MEQ/L Chloride Level 98 MEQ/L 97 MEQ/L Carbon Dioxide Level 26.0 MEQ/L 26.9 MEQ/L Anion Gap 10 MEQ/L 10 MEQ/L Estimat Glomerular Filtration Rate 9 ML/MIN 9 ML/MIN Ammonia 27 MCMOL/L Vitamin B12 Level 1789 PG/ML Thyroid Stimulating Hormone 3rd Gen 8.800 uIU/ML Microbiology Date/Time Source Procedure Growth Status 11/24/17 04:13 Blood Peripheral Blood Fungal Culture Pending Received 11/24/17 04:13 Blood Peripheral Blood Fungal Culture Pending Received 11/23/17 17:40 Catheter Tip Central Venous Line Fungal Culture - Final Complete 11/23/17 17:40 Catheter Tip Central Venous Line Wound Culture - Final NO GROWTH IN 48 HOURS. Complete Imaging Lower Extremity Ultrasound 11/13/17 0000 Signed Impressions: Service Date/Time: Monday, November 13, 2017 07:52 - CONCLUSION: No DVT seen in either leg. Jewel Kaiser MD Hand X-Ray 11/13/17 0000 Signed Impressions: Service Date/Time: Monday, November 13, 2017 10:18 - CONCLUSION: Osteoporosis. Extensive arterial calcifications. 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 No definite evidence of bony destruction or osteomyelitis Jared Upton MD Physical Exam GENERAL: Lethargic, opens eyes briefly when stimulated SKIN: Cool and dry. No rash. Edematous EYES: [place] conjunctiva. No petechia or hemorrhage. No scleral icterus. EARS, NOSE AND THROAT: NAD. NECK: Trachea midline, supple and not tender CARDIOVASCULAR: Regular rate and rhythm. Has systolic murmur over L precordium and base of the heart RESPIRATORY: Clear to auscultation. No rales, wheezing or rhonchi. Decreased at both bases ABDOMEN: Soft, and non-tender, bowel sounds present and hypoactive. No guarding. No rebound. Liver edge palpable on R side of abdomen, not tender. EXTREMITIES: No clubbing, cyanosis. Has edema of both feet. Dry gangrene noted. Incision LUE dry, no redness NEUROLOGICAL: Opens eyes when stimulated PSYCHIATRIC: Lethargic LINES: No evidence of infection Assessment & Plan Remarks IMPRESSION Septic Thrombophlebitis: Enterobacter Enterobacter bacteremia, BC 11/05 (+), ?source - permacath C/S negative (?due to previous Abx) - concern with infected thrombus LUE AVF - ?other endovascular focus Thrombosis DRIL LUE AVF S/P Bypass LUE and ligation of AVF and DRIL ESRD on HD MWF Ascites, ?primary liver problem or other etiology LMF dry gangrene RECOMMENDATION Continue IV Rocephin Follow temps Follow MS Continue progress D/W RN D/W Loraine Doherty CCM, MD Nov 26, 2017 13:35
--- NOTE | 2017-11-26 16:13 | RADRPT ---
EXAM DATE/TIME: 11/26/2017 15:27 [facility] COMPARISON: No previous studies available for comparison. INDICATIONS : Altered mental status. RADIATION DOSE: 56.35 CTDIvol (mGy) MEDICAL HISTORY : Cardiovascular disease. Hypertension. Diabetes mellitus type 1. SURGICAL HISTORY : pacer/defib ENCOUNTER: Initial ACUITY: 1 day PAIN SCALE: 0/10 LOCATION: cranial TECHNIQUE: Multiple contiguous axial images were obtained of the head. Using automated exposure control and adj ustment of the mA and/or kV according to patient size, radiation dose was kept as low as reasonably a chievable to obtain optimal diagnostic quality images. DICOM format image data is available electro nically for review and comparison. FINDINGS: CEREBRUM: The ventricles are normal for age. No evidence of midline shift, mass lesion, hemorrhage or acute in farction. No extra-axial fluid collections are seen. POSTERIOR FOSSA: The cerebellum and brainstem are intact. The 4th ventricle is midline. The cerebellopontine angle i s unremarkable. EXTRACRANIAL: The visualized portion of the orbits is intact. SKULL: The calvaria is intact. No evidence of skull fracture. CONCLUSION: Negative acute process.. Meir Oden MD FACR on November 26, 2017 at 16:11 Board Certified Radiologist. This report was verified electronically.
[2017-11-26] MEDS: cefTRIAXone INJ 2,000 MG in SODIUM CHLORIDE 0.9% INJ 100 ML IV SCH (16:48)
--- NOTE | 2017-11-26 19:18 | HHI.NPPN ---
Subjective History of Present Illness Patient is a 67-year-old male with a history of end-stage renal disease on hemodialysis Sunday/Sunday/ Sunday, diabetes, CAD, CHF, hypertension was transferred from [facility] to be evaluated by vascular surgery. Patient states he was admitted to [facility] because he had low blood pressure readings at home. AV fistula has not been functioning or used for 6- 8 weeks and they have been using a permacath for dialysis. Permacath has been removed secondary to possible infection and vas cath has been placed. He has been treated with cefepime IV. Last dialysis was Sunday and 1.5 L removed. Patient has a necrotic left middle finger that patient states has been going on for the last 12 weeks. Additional Remarks Patient is awake, now with nasal cannula and not in distress. Review of Systems Genitourinary Remarks Objective Data Data 11/26/17 11/27/17 19:00 07:00 Intake Total 220 ml Output Total 3000 ml Balance -2780 ml Intake Oral 120 ml IV Total 100 ml Hemodialysis 3000 ml Vital Signs Date Time Temp Pulse Resp B/P (MAP) Pulse Ox O2 Delivery O2 Flow Rate FiO2 11/26/17 15:00 99 Nasal Cannula 2.00 11/26/17 15:00 98.5 63 16 109/52 (71) 99 118/49 (72) 11/26/17 15:00 63 11/26/17 11:00 99 Nasal Cannula 2.00 11/26/17 11:00 86 11/26/17 11:00 97.8 86 16 124/65 (84) 100 119/46 (70) 11/26/17 08:35 99 Nasal Cannula 2.00 11/26/17 08:22 66 112/47 11/26/17 07:00 99 Nasal Cannula 2.00 11/26/17 07:00 98.7 78 14 112/57 (75) 99 117/54 (75) 11/26/17 07:00 78 11/26/17 03:00 82 11/26/17 03:00 97 Nasal Cannula 2.00 11/26/17 03:00 97.6 70 16 119/47 (71) 100 99/46 (63) 11/25/17 23:00 98.0 89 16 102/49 (66) 99 113/71 (85) 11/25/17 23:00 97 Nasal Cannula 4.00 11/25/17 23:00 89 11/25/17 21:31 97 Nasal Cannula 2.00 -: 11/26/17 0340 11/26/17 0310 Tubes & Lines: Perma-Cath Physical Exam General Appearance: No Acute Distress, Comfortable Eyes Eye Exam: Pupils Equal Throat Throat Exam: Oral Mucosa [place] & Moist Pulmonary Resp Exam: Clear Bilaterally, Breath Sounds Equal, No Distress Cardiology CV Exam: Regular Gastrointestinal/Abdomen GI Exam: Soft, Non-Tender, Bowel Sounds Present Extremeties Extremities Exam: Moderate Edema (Left arm and hand swelling.) Neurologic Neuro Exam: Alert, Awake Psychiatric Psych Exam: Appropriate Responses Assessment/Plan Discussed Condition With: Spouse Assessment Summary: End Stage Renal Disease Problem List: (1) ESRD (end stage renal disease) on dialysis ICD Codes: N18.6 - End stage renal disease; Z99.2 - Dependence on renal dialysis Plan: Dialysis MWF s/p L UE bypass 2/6 ligation of AVF and DRIL On ventilator CPAP trail underway Perma cath placement 11/21. Anemia Epogen with dialysis Post Paracentesis done 11/22/17. HD done in AM and 3 liters removed.Edema improving. (2) Gangrene of finger of left hand ICD Codes: I96 - Gangrene, not elsewhere classified Plan: necrotic area on left hand middle finger Hand surgery consulted surgery planned for this week (3) AV fistula occlusion ICD Codes: T82.898A - Other specified complication of vascular prosthetic devices, implants and grafts, initial encounter Plan: s/p L UE bypass 2/6 ligation of AVF and DRIL (4) Diabetes mellitus ICD Codes: E11.9 - Type 2 diabetes mellitus without complications Plan: Maintain BS between 140mg/dl to 180 mg/dl Kim Santos MD Nov 26, 2017 19:18
[2017-11-27] VITALS (8 sets, daily range): BP systolic 97–117; BP diastolic 47–60; PULSE 82–89; RESP 16–18; TEMP 98.1–99.1; O2SAT 96–99
[2017-11-27] MEDS: RESP: ALBUTEROL 2.5 MG/IPRATROPIUM 0.5 MG NEB (SCH) NEB ×4 (04:07→21:15)
[2017-11-27] MEDS: LEVOTHYROXINE SODIUM 125 MCG TAB PO SCH (06:00)
--- NOTE | 2017-11-27 07:08 | PD.VS.PN ---
Subjective POD #: 6 Procedure(s): L brachial-brachial bypass, ligation of AVF Subjective/Hospital Course Still very somnolent, but arousable doesn't endorse hand pain Objective Vitals/I&O Date Time Temp Pulse Resp B/P (MAP) Pulse Ox O2 Delivery O2 Flow Rate FiO2 11/27/17 03:16 98.2 88 18 113/58 (76) 96 11/27/17 03:16 98 Nasal Cannula 2.00 11/27/17 03:16 88 11/26/17 23:39 88 11/26/17 23:39 98.0 88 18 102/51 (68) 96 11/26/17 23:39 98 Nasal Cannula 2.00 11/26/17 19:43 99 Nasal Cannula 1.50 11/26/17 19:23 98.2 90 18 119/63 (81) 97 Arterial Line 11/26/17 19:23 98 Nasal Cannula 2.00 11/26/17 19:00 90 11/26/17 15:00 99 Nasal Cannula 2.00 11/26/17 15:00 98.5 63 16 109/52 (71) 99 118/49 (72) 11/26/17 15:00 63 11/26/17 11:00 99 Nasal Cannula 2.00 11/26/17 11:00 86 11/26/17 11:00 97.8 86 16 124/65 (84) 100 119/46 (70) 11/26/17 08:35 99 Nasal Cannula 2.00 11/26/17 08:22 66 112/47 11/27/17 11/27/17 11/27/17 07:00 15:00 23:00 Intake Total 320 ml Output Total 0 ml Balance 320 ml Exam: L UE incision intact serous drainage no erythema less edematous Pulses: strong ulnar and radial signals as well as palmar arch signal Laboratory Laboratory Tests Test 11/26/17 10:00 Ammonia 27 Vitamin B12 Level 1789 Thyroid Stimulating Hormone 3rd Gen 8.800 Date/Time Source Procedure Growth Status 11/24/17 04:13 Blood Peripheral Blood Fungal Culture Pending Received 11/24/17 04:13 Blood Peripheral Blood Fungal Culture Pending Received 11/22/17 15:38 Fluid Peritoneal Fluid Gram Stain - Final Complete 11/22/17 15:38 Fluid Peritoneal Fluid Body Fluid Culture - Final NO GROWTH IN 72 HRS.--AEROBICALLY OR ... Complete 11/23/17 17:40 Catheter Tip Central Venous Line Fungal Culture - Final Complete Assessment and Plan Plan POD# 6 S/p L UE bypass, access ligation UE warm and bypass patent by exam Continue medical management Discharge Planning Anytime from a vascular surgery standpoint but clearly many other issues (ID, mental status, cardiac, renal) Issa Jansen MD Nov 27, 2017 07:08
[2017-11-27] MEDS: INSULIN ASPART SUPPLEMENTAL SCALE SQ SCH ×4 (08:00→21:00)
[2017-11-27] MEDS: BACITRACIN TOP OINT 15 GM TUBE TOPICAL SCH ×2 (08:33→21:00)
[2017-11-27] MEDS: NYSTATIN 100,000 UNIT/GM CREAM 15 GM TOPICAL SCH ×2 (08:33→21:00)
[2017-11-27] MEDS: CALCIUM ACETATE 667 MG CAP PO SCH ×3 (08:34→18:23)
[2017-11-27] MEDS: DOCUSATE SODIUM 50 MG/SENNA 8.6 MG TAB PO SCH ×2 (08:34→21:00)
[2017-11-27] MEDS: ASPIRIN EC 81 MG TABEC PO SCH (08:34)
[2017-11-27] MEDS: PANTOPRAZOLE SOD 20 MG DELAYED RELEASE TAB PO SCH (08:34)
[2017-11-27] MEDS: HEPARIN SODIUM - SQ 10,000 UNITS/ML VIAL SQ SCH ×2 (08:34→21:07)
[2017-11-27] MEDS: THYROID 60 MG TAB PO SCH ×2 (08:34→21:07)
[2017-11-27] MEDS: CLOPIDOGREL 75 MG TAB PO SCH (08:35)
[2017-11-27] MEDS: SODIUM CHLORIDE 0.9% FLUSH 10 ML FLUSH IV FLUSH SCH ×2 (08:36→21:00)
[2017-11-27] MEDS: MIDODRINE 5 MG TAB PO SCH ×2 (08:36→18:23)
--- NOTE | 2017-11-27 08:47 | HHI.CCPN ---
Subjective Remarks/Hospital Course 67-year-old male, has been at [facility] for the last 15 days, transferred to [facility] for vascular evaluation. Patient has known end-stage renal disease and gets hemodialysis every Sunday and Sunday. He had a left upper extremity AV fistula, and it had some problem, so he underwent left upper extremity access revision, left upper extremity distal revascularization and interval ligation, last August 07, 2017. He was discharged, and apparently the fistula was working okay, and during that admission also he had that left middle finger dry gangrene which was felt to be ischemic in nature due to steal syndrome. As an outpatient, his fistula apparently stopped working, so he had a permacath placed in his right IJ. Patient stated that he's had problem on and off with low blood pressure for the last 4 months. The hypotension were getting worse and he ended up getting admitted at [facility] where he stayed for at least 15 days. During that admission, he had some positive blood culture done on November 05 that grew Enterobacter cloaca. Blood culture from November 07 were negative. His permacath was removed on November 07 and the culture of that was negative. Patient underwent L UE bypass brachial-brachial and ligation of the AV fistula. Is scheduled for permacath placement tomorrow morning and remains in the ICU sedated and intubated. Subjective: 11/21: Afebrile .The patient remains intubated and sedated. Plan for permacath placement this a.m.. Will resume ventilator weaning postoperatively. 11/22: Attempted CPAP trials postoperatively yesterday, unsuccessful. Patient continues on phenylephrine currently a 60 mics/minute. Propofol discontinued Precedex infusion initiated CPAP trials are reinitiated this a.m. with plans for SBT later this morning and possible extubation. 11/23: Getting HD. Patient is awake, but very weak. On CPAP but requiring high pressure support 20. Had US guided paracentesis yesterday with 6L fluid removed- chylous. Remains on Precedex and remains on Shon-Synephrine at 60 mcg/min increased to 100 mcg/min 11/24: Remains intubated off all sedation. Requiring Shon-Synephrine at 80 mcg/ min to keep map above 65. HD with 2L removed. Left groin central line was removed and right groin hemodialysis catheter was removed yesterday 11/23/17. New right IJ central line placed yesterday 11/25: Extubated yesterday tolerating well respiratory harris. Remains on Shon- Synephrine to maintain map above 65. Cultures remain negative. Patient intermittently not cooperative with care. He is oriented 2 11/26: At around 2 AM today had episode of unresponsiveness, correlating with hypotension was hard to awake. Currently patient is awake but very lethargic voice is very soft but oriented to person and place. I will hold the Neurontin avoid all sedation currently on Shon-Synephrine at 30 mcg/min. completed hemodialysis today with 3L removed 11/27: Mentation and alertness seems to be slightly improved. TSH elevated at 8.8, increase Synthroid to 150 mcg per day. Patient is oriented to person and place. Remains very weak Objective Vital Signs Date Time Temp Pulse Resp B/P (MAP) Pulse Ox O2 Delivery O2 Flow Rate FiO2 11/27/17 03:16 98.2 88 18 113/58 (76) 96 11/27/17 03:16 Nasal Cannula 2.00 11/24/17 08:12 40 Intake and Output 11/27/17 11/27/17 11/28/17 08:00 16:00 00:00 Intake Total 320 ml Output Total 0 ml Balance 320 ml Result Diagram: 11/26/17 0340 11/26/17 0310 Imaging Last Impressions Chest X-Ray 11/20/17 0000 Signed Impressions: Service Date/Time: Monday, November 20, 2017 23:22 - CONCLUSION: 1. The superior aspect of the left hemithorax has multiple overlying structures which could obscure a small pneumothorax. Given this limitation, no pneumothorax is identified. 2. Small bilateral pleural effusions with atelectasis at the bases. Sami Deng MD Lower Extremity Ultrasound 11/13/17 0000 Signed Impressions: Service Date/Time: Monday, November 13, 2017 07:52 - CONCLUSION: No DVT seen in either leg. Jewel Kaiser MD Hand X-Ray 11/13/17 0000 Signed Impressions: Service Date/Time: Monday, November 13, 2017 10:18 - CONCLUSION: Osteoporosis. Extensive arterial calcifications. 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 No definite evidence of bony destruction or osteomyelitis Jared Upton MD Objective Remarks GENERAL: Lying on bed breathing lethargic but awake, remains on 10 mcg/min of Shon-Synephrine SKIN: Warm and dry. HEAD: Normocephalic. EYES: No scleral icterus. No injection or drainage. NECK: Supple, trachea midline. No JVD or lymphadenopathy. CARDIOVASCULAR: Regular rate and rhythm no gallops, or rubs. Systolic murmur at the left sternal border. Shon-Synephrine 10 mcg/min RESPIRATORY: Breath sounds equal bilaterally, diminished at the bases. No accessory muscle use. GASTROINTESTINAL: Abdomen soft, non-tender, protuberant MUSCULOSKELETAL: No cyanosis, or edema. Noted dry gangrene left middle digit. NEURO EXAM: Alert awake oriented 2, lethargic but awake. Pupils brisk and 2 mm bilaterally. Follows commands weakly on all 4 extremities Procedures 11/20 Sp LUE angiogram. 11/21 permacath placement A/P Assessment and Plan Neuro: Metabolic encephalopathy - Off all sedation - Continue PT OT speech - Holding Neurontin - CT head 11/26 negative - TSH elevated, Synthroid increased. B12, ammonia normal Resp: Acute respiratory failure -resolved - Postoperative respiratory failure with failure to wean - Extubated 11/24/17 tolerating well - DuoNeb every 6 hours when necessary for wheezing - EzPAP, Acapella, IS as tolerated CVS: Hypotension Bilateral upper extremity ischemia - s/p L UE bypass - plastics/hand surgery - potential L digit treatment later - Currently on Shon-Synephrine to keep map above 65. DC today - Midodrine 10 mg every 8 hours - Hold carvedilol due to hypotension - Continue aspirin Plavix GI: - Large-volume ascites removed 11/22/17 - f/u cultures negative to date : End-stage renal disease - Hemodialysis per nephrology, removed 3L 11/26 - PermCath placement 11/21 Endo: Diabetes mellitus - Insulin sliding scale ID: Bacteremia Sepsis (Enterobacter bacteremia, BC 10/16) Possible left femoral line site infection - Antibiotics per ID (Rocephin) - Repeat blood culture neg to date - Single dose of Micafungin given 11/23/17 for erythema around the left central line site DVT GI prophylaxis - Teds SCDs - Subcutaneous heparin - Pepcid DCd Femoral central line and vascath 11/23/17 New RIJ central line placed 11/23 Critical Care: This patient remains critically ill with one or more organ systems which are or may become a threat to life. I have spent in excess of 30 minutes discontinuously in the care and management of this patient. This time is exclusive of procedures, and includes, but is not limited to, evaluation of the patient, review of the medical record, discussions with family, consultants , nursing staff, or respiratory therapy, and documentation in the medical record. Level 3 Pratik Gallardo MD Nov 27, 2017 08:47
--- NOTE | 2017-11-27 13:16 | HHI.IDPN ---
Subjective Subjective Remarks Patient is a 67-year-old male, has been at [facility] for the last 15 days, transferred to [facility] for vascular evaluation. Patient has known end-stage renal disease and gets hemodialysis every Sunday and Sunday. He had a left upper extremity AV fistula, and it had some problem, so he underwent left upper extremity access revision, left upper extremity distal revascularization and interval ligation, last August 07, 2017. He was discharged, and apparently the fistula was working okay, and during that admission also he had that left middle finger dry gangrene which was felt to be ischemic in nature due to steal syndrome. As an outpatient, his fistula apparently stopped working, so he had a permacath placed in his right IJ. Patient stated that he's had problem on and off with low blood pressure for the last 4 months. The hypotension were getting worse and he ended up getting admitted at [facility] where he stayed for at least 15 days. During that admission, he had some positive blood culture done on November 05 that grew Enterobacter cloaca. Blood culture from November 07 were negative. His permacath was removed on November 07 and the culture of that was negative. Patient was apparently getting IV cefepime, and there was an infectious disease specialist monitoring him for his infection. Patient stated that he's had some reaction to the cefepime and he describes it as burning sensation. Patient is currently afebrile. There was evaluation of his AV fistula which shows thrombosis of his DRIL. He has now been transferred to [facility] for vascular evaluation. Infectious disease consultation has been requested to evaluate for sepsis. notes reviewed D/W RN Off pressors since this morning Sat up in chair for about 3 hours PO intake fair Swallowing ok Antibiotics Current Medications Rocephin Medications (Trade) Dose Ordered Sig/Renny Route Start Time Stop Time Status Last Admin (NS Flush) 2 ml BID IV FLUSH 11/12/17 21:00 11/27/17 08:36 (Tylenol) 650 mg Q4H PRN PO 11/12/17 20:00 11/24/17 05:32 (Zofran Inj) 4 mg Q6H PRN IVP 11/12/17 20:00 (Narcan Inj) 0.4 mg UNSCH PRN IV PUSH 11/12/17 20:00 (Senokot) 17.2 mg Q12H PRN PO 11/12/17 20:00 (D50w (Vial) Inj) 50 ml UNSCH PRN IV PUSH 11/12/17 23:30 (Glucagon Inj) 1 mg UNSCH PRN OTHER 11/12/17 23:30 (NovoLOG SUPPLEMENTAL SCALE) 1 ACHS SLIDING SCALE SQ 11/13/17 08:00 11/20/17 17:00 (Phoslo) 667 mg TID PO 11/13/17 09:00 11/27/17 12:27 (Ecotrin Ec) 162 mg DAILY PO 11/13/17 09:00 11/27/17 08:34 (Plavix) 75 mg DAILY PO 11/13/17 09:00 Future hold 11/27/17 08:35 (Baciguent Oint) 1 applic Q12HR TOPICAL 11/13/17 21:00 11/27/17 08:33 Sodium Chloride 1,000 ml @ 0 mls/hr Q0M PRN OTHER 11/13/17 14:09 11/23/17 11:30 (Heparin Inj) 8,000 units UNSCH PRN IV FLUSH 11/13/17 14:15 11/15/17 15:23 Sodium Chloride 1,000 ml @ 200 mls/hr Q5H PRN IV 11/13/17 14:09 11/26/17 07:15 Sodium Chloride 1,000 ml @ 0 mls/hr Q0M PRN OTHER 11/13/17 14:09 (Mannitol Inj) 12.5 gm UNSCH PRN IV 11/13/17 14:15 11/17/17 11:53 Albumin Human 100 ml @ 60 mls/hr UNSCH PRN IV 11/13/17 14:15 11/26/17 07:15 (NS Flush) 5 ml UNSCH PRN IV FLUSH 11/13/17 14:15 (Heparin Inj) UNSCH PRN .XX 11/13/17 14:15 11/26/17 07:14 (Gentamicin Inj) 20 mg UNSCH PRN OTHER 11/13/17 14:15 11/26/17 07:14 (Zofran Inj) 4 mg UNSCH PRN IV PUSH 11/13/17 14:15 (Tylenol) 650 mg UNSCH PRN PO 11/13/17 14:15 11/18/17 08:40 (Benadryl) 25 mg UNSCH PRN PO 11/13/17 14:15 (Nitrostat Sl) 0.4 mg UNSCH PRN SL 11/13/17 14:15 (Catapres) 0.1 mg UNSCH PRN PO 11/13/17 14:15 (Epogen Inj) 4,000 units UNSCH PRN IV PUSH 11/13/17 14:15 11/26/17 07:13 (Gelfoam 12 Mm/7 Mm Top) 1 foam UNSCH PRN TOP 11/13/17 14:15 Ceftriaxone Sodium 2000 mg/ Sodium Chloride 100 ml @ 200 mls/hr Q24H IV 11/13/17 16:00 11/26/17 16:48 (Coreg) 3.125 mg BID PO 11/16/17 21:00 Future Hold 11/22/17 08:37 (Protonix) 20 mg DAILY PO 11/17/17 09:00 11/27/17 08:34 (Neurontin) 100 mg TID PO 11/20/17 18:00 Future Hold 11/25/17 18:34 ([place] Thyroid) 60 mg BID PO 11/20/17 21:00 11/27/17 08:34 (Roxicodone) 5 mg Q4H PRN PO 11/20/17 15:15 (Dilaudid) 2 mg Q4H PRN PO 11/20/17 15:15 (Morphine Inj) 2 mg Q1H PRN IV PUSH 11/20/17 15:15 (Marleny-Colace) 1 tab BID PO 11/20/17 21:00 11/27/17 08:34 (Milk Of Magnesia Liq) 30 ml Q12H PRN PO 11/20/17 15:15 (Senokot) 17.2 mg Q12H PRN PO 11/20/17 15:15 (Dulcolax Supp) 10 mg DAILY PRN RECTAL 11/20/17 15:15 (Lactulose Liq) 30 ml DAILY PRN PO 11/20/17 15:15 Propofol 100 ml @ 2.841 mls/ hr TITRATE PRN IV 11/20/17 16:00 Future Hold 11/22/17 03:36 (Brethine Inj) 1 mg UNSCH PRN SQ 11/20/17 17:30 (NS Flush) 5 ml UNSCH PRN IV FLUSH 11/20/17 17:45 (Heparin Inj) 2,000 units UNSCH PRN IV FLUSH 11/20/17 17:45 (Duoneb Neb) 1 ampule Q4HR NEB PRN NEB 11/21/17 08:45 11/21/17 08:47 (Mycostatin Cream) 1 applic Q12HR TOPICAL 11/24/17 14:00 11/27/17 08:33 (Proamatine) 10 mg BID@0900,1800 PO 11/25/17 18:00 11/27/17 08:36 (Duoneb Neb) 1 ampule Q6HR NEB NEB 11/25/17 16:00 11/27/17 09:40 (Heparin Inj) 5,000 units Q12HR SQ 11/26/17 21:00 11/27/17 08:34 (Synthroid) 150 mcg DAILY@0600 PO 11/28/17 06:00 Lines CL site ok. Permacath site ok. Past Medical History ESRD DM CAD HF. HTN Enlarged liver, and ascites Past Surgical History Pacemaker CABGx4 with mitral valvuloplasty in february 2005 Right fifth toe amputation Right shoulder rotator cuff repair Has had repeated paracentesis to drain his ascites Allergies: Coded Allergies: adhesive (Unverified Adverse Reaction, Severe, SKIN BREAKDOWN/ULCERS, ) Uncoded Allergies: MSG (Allergy, Intermediate, bowel problems, 08/02/17) Objective . Vital Signs Date Time Temp Pulse Resp B/P (MAP) Pulse Ox O2 Delivery O2 Flow Rate FiO2 11/27/17 11:00 98.2 88 16 114/60 (78) 99 11/27/17 11:00 88 11/27/17 11:00 98 Nasal Cannula 2.00 11/27/17 09:41 99 Nasal Cannula 2.00 11/27/17 07:00 98 Nasal Cannula 2.00 11/27/17 07:00 98.1 82 18 97/47 (64) 99 11/27/17 07:00 88 11/27/17 03:16 98.2 88 18 113/58 (76) 96 11/27/17 03:16 98 Nasal Cannula 2.00 11/27/17 03:16 88 11/26/17 23:39 88 11/26/17 23:39 98.0 88 18 102/51 (68) 96 11/26/17 23:39 98 Nasal Cannula 2.00 11/26/17 19:43 99 Nasal Cannula 1.50 11/26/17 19:23 98.2 90 18 119/63 (81) 97 Arterial Line 11/26/17 19:23 98 Nasal Cannula 2.00 11/26/17 19:00 90 11/26/17 15:00 99 Nasal Cannula 2.00 11/26/17 15:00 98.5 63 16 109/52 (71) 99 118/49 (72) 11/26/17 15:00 63 . Laboratory Tests Test 11/25/17 14:44 11/26/17 03:40 White Blood Count 10.2 TH/MM3 7.8 TH/MM3 Red Blood Count 2.87 MIL/MM3 2.56 MIL/MM3 Hemoglobin 8.7 GM/DL 7.8 GM/DL Hematocrit 27.0 % 23.8 % Mean Corpuscular Volume 93.8 FL 92.8 FL Mean Corpuscular Hemoglobin 30.4 PG 30.3 PG Mean Corpuscular Hemoglobin Concent 32.4 % 32.7 % Red Cell Distribution Width 17.4 % 17.7 % Platelet Count 122 TH/MM3 102 TH/MM3 Mean Platelet Volume 9.6 FL 9.8 FL Neutrophils (%) (Auto) 71.8 % 69.9 % Lymphocytes (%) (Auto) 6.9 % 7.6 % Monocytes (%) (Auto) 17.9 % 18.2 % Eosinophils (%) (Auto) 2.5 % 3.4 % Basophils (%) (Auto) 0.9 % 0.9 % Neutrophils # (Auto) 7.3 TH/MM3 5.4 TH/MM3 Lymphocytes # (Auto) 0.7 TH/MM3 0.6 TH/MM3 Monocytes # (Auto) 1.8 TH/MM3 1.4 TH/MM3 Eosinophils # (Auto) 0.3 TH/MM3 0.3 TH/MM3 Basophils # (Auto) 0.1 TH/MM3 0.1 TH/MM3 CBC Comment DIFF FINAL DIFF FINAL Differential Comment Laboratory Tests Test 11/25/17 14:14 11/26/17 03:10 11/26/17 10:00 Blood Urea Nitrogen 22 MG/DL 25 MG/DL Creatinine 6.03 MG/DL 6.49 MG/DL Random Glucose 125 MG/DL 95 MG/DL Total Protein 4.9 GM/DL 4.6 GM/DL Albumin 2.3 GM/DL 1.9 GM/DL Calcium Level 7.8 MG/DL 8.0 MG/DL Alkaline Phosphatase 245 U/L 221 U/L Aspartate Amino Transf (AST/SGOT) 11 U/L 9 U/L Alanine Aminotransferase (ALT/SGPT) 8 U/L LESS THAN 6 U/L Total Bilirubin 0.5 MG/DL 0.4 MG/DL Sodium Level 134 MEQ/L 134 MEQ/L Potassium Level 4.0 MEQ/L 4.0 MEQ/L Chloride Level 98 MEQ/L 97 MEQ/L Carbon Dioxide Level 26.0 MEQ/L 26.9 MEQ/L Anion Gap 10 MEQ/L 10 MEQ/L Estimat Glomerular Filtration Rate 9 ML/MIN 9 ML/MIN Ammonia 27 MCMOL/L Vitamin B12 Level 1789 PG/ML Thyroid Stimulating Hormone 3rd Gen 8.800 uIU/ML Imaging Lower Extremity Ultrasound 11/13/17 0000 Signed Impressions: Service Date/Time: Monday, November 13, 2017 07:52 - CONCLUSION: No DVT seen in either leg. Jewel Kaiser MD Hand X-Ray 11/13/17 0000 Signed Impressions: Service Date/Time: Monday, November 13, 2017 10:18 - CONCLUSION: Osteoporosis. Extensive arterial calcifications. 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 No definite evidence of bony destruction or osteomyelitis Jared Upton MD Physical Exam GENERAL: Resting, NAD SKIN: Cool and dry. No rash. Edematous EYES: [place] conjunctiva. No petechia or hemorrhage. No scleral icterus. EARS, NOSE AND THROAT: NAD. NECK: Trachea midline, supple and not tender CARDIOVASCULAR: Regular rate and rhythm. Has systolic murmur over L precordium and base of the heart RESPIRATORY: Clear to auscultation. No rales, wheezing or rhonchi. Decreased at both bases ABDOMEN: Soft, and non-tender, bowel sounds present and hypoactive. No guarding. No rebound. EXTREMITIES: No clubbing, cyanosis. Has edema of both feet and UE. Dry gangrene noted. Incision LUE dry, no redness NEUROLOGICAL: Resting LINES: No evidence of infection Assessment & Plan Remarks IMPRESSION Septic Thrombophlebitis: Enterobacter Enterobacter bacteremia, BC 11/05 (+), ?source - permacath C/S negative (?due to previous Abx) - concern with infected thrombus LUE AVF - ?other endovascular focus Thrombosis DRIL LUE AVF S/P Bypass LUE and ligation of AVF and DRIL ESRD on HD MWF Ascites, ?primary liver problem or other etiology LMF dry gangrene RECOMMENDATION Continue IV Rocephin Prob change to oral Abx in few days and complete Rx Follow temps Continue progress D/W Loraine Harris MD Nov 27, 2017 13:16
[2017-11-27 14:15] LABS: FREE T3 1.57 PG/ML (2.18-3.98); FREE T4 1.35 NG/DL (0.76-1.46)
--- NOTE | 2017-11-27 15:15 | MG ---
cc: LELO SCOTT Lab No:[id number] Date: 11/26/2017 Age: Sex: M Race: TECHNIQUE 17 channel EEG. DESCRIPTION Background rhythm shows mild slowing in the theta range at 5-6 Hz amplitude is about 10-20 microvolts. There are no lateralizing features identified. No epileptic features identified. There is fairly prominent muscle artifact present. Photic stimulation was done and a stepwise fashion with no significant driving response. INTERPRETATION Mildly abnormal study consistent with a mild encephalopathy. MD DEANNA Dial/robina /2:58 PM /3:10 PM
[2017-11-27] MEDS: cefTRIAXone INJ 2,000 MG in SODIUM CHLORIDE 0.9% INJ 100 ML IV SCH (15:58)
--- NOTE | 2017-11-27 16:27 | HHI.NPPN ---
Subjective History of Present Illness Patient is a 67-year-old male with a history of end-stage renal disease on hemodialysis Sunday/Sunday/ Sunday, diabetes, CAD, CHF, hypertension was transferred from [facility] to be evaluated by vascular surgery. Patient states he was admitted to [facility] because he had low blood pressure readings at home. AV fistula has not been functioning or used for 6- 8 weeks and they have been using a permacath for dialysis. Permacath has been removed secondary to possible infection and vas cath has been placed. He has been treated with cefepime IV. Last dialysis was Sunday and 1.5 L removed. Patient has a necrotic left middle finger that patient states has been going on for the last 12 weeks. Additional Remarks Patient is awake not oriented on nasal cannula and not in distress. (Kathleen Olguin) Review of Systems Genitourinary Remarks (Kathleen Olguin) Objective Data Data Vital Signs Date Time Temp Pulse Resp B/P (MAP) Pulse Ox O2 Delivery O2 Flow Rate FiO2 11/27/17 15:00 98.1 88 16 111/55 (73) 98 11/27/17 15:00 98 Nasal Cannula 2.00 11/27/17 15:00 88 11/27/17 11:00 98.2 88 16 114/60 (78) 99 11/27/17 11:00 88 11/27/17 11:00 98 Nasal Cannula 2.00 11/27/17 09:41 99 Nasal Cannula 2.00 11/27/17 07:00 98 Nasal Cannula 2.00 11/27/17 07:00 98.1 82 18 97/47 (64) 99 11/27/17 07:00 88 11/27/17 03:16 98.2 88 18 113/58 (76) 96 11/27/17 03:16 98 Nasal Cannula 2.00 11/27/17 03:16 88 11/26/17 23:39 88 11/26/17 23:39 98.0 88 18 102/51 (68) 96 11/26/17 23:39 98 Nasal Cannula 2.00 11/26/17 19:43 99 Nasal Cannula 1.50 11/26/17 19:23 98.2 90 18 119/63 (81) 97 Arterial Line 11/26/17 19:23 98 Nasal Cannula 2.00 11/26/17 19:00 90 (Kathleen Olguin) -: 11/26/17 0340 11/26/17 0310 Tubes & Lines: Perma-Cath (Kathleen Olguin) Physical Exam General Appearance: No Acute Distress, Comfortable (Kathleen Olguin) Eyes Eye Exam: Pupils Equal (Kathleen Olguin) Throat Throat Exam: Oral Mucosa [place] & Moist (Kathleen Olguin) Pulmonary Resp Exam: Breath Sounds Equal, No Distress, Decreased Bases Resp Remarks vented (Kathleen Olguin) Cardiology CV Exam: Regular (Kathleen Olguin) Gastrointestinal/Abdomen GI Exam: Soft, Non-Tender, Bowel Sounds Present (Kathleen Olguin) Integumentary Skin Remarks necrotic area on tip on left hand middle finger (Kathleen Olguin) Extremeties Extremities Exam: Moderate Edema (Left arm and hand swelling.) (Kathleen Olguin) Neurologic Neuro Exam: Alert, Awake (Kathleen Olguin) Psychiatric Psych Exam: Appropriate Responses (Kathleen Olguin) Assessment/Plan Discussed Condition With: Spouse Assessment Summary: End Stage Renal Disease Problem List: (1) ESRD (end stage renal disease) on dialysis ICD Codes: N18.6 - End stage renal disease; Z99.2 - Dependence on renal dialysis Plan: Dialysis MWF s/p L UE bypass 2/6 ligation of AVF and DRIL Anemia Epogen with dialysis Post Paracentesis done 11/22/17. Complaining of generalized discomfort. Tylenol ordered HD planned for tomorrow. labs in AM (2) Gangrene of finger of left hand ICD Codes: I96 - Gangrene, not elsewhere classified Plan: necrotic area on left hand middle finger (3) AV fistula occlusion ICD Codes: T82.898A - Other specified complication of vascular prosthetic devices, implants and grafts, initial encounter Plan: s/p L UE bypass 2/6 ligation of AVF and DRIL (4) Diabetes mellitus ICD Codes: E11.9 - Type 2 diabetes mellitus without complications Plan: Maintain BS between 140mg/dl to 180 mg/dl (Kathleen Olguin) Problem List: (1) ESRD (end stage renal disease) on dialysis ICD Codes: N18.6 - End stage renal disease; Z99.2 - Dependence on renal dialysis Plan: Dialysis MWF s/p L UE bypass 2/6 ligation of AVF and DRIL Anemia Epogen with dialysis Post Paracentesis done 11/22/17. Complaining of generalized discomfort. Tylenol ordered HD planned for tomorrow. labs in AM. Patient seen and examined, agree with above. Has off and on confusion. HD will be in AM. (2) Gangrene of finger of left hand ICD Codes: I96 - Gangrene, not elsewhere classified Plan: necrotic area on left hand middle finger (3) AV fistula occlusion ICD Codes: T82.898A - Other specified complication of vascular prosthetic devices, implants and grafts, initial encounter Plan: s/p L UE bypass 2/6 ligation of AVF and DRIL (4) Diabetes mellitus ICD Codes: E11.9 - Type 2 diabetes mellitus without complications Plan: Maintain BS between 140mg/dl to 180 mg/dl (Kim Santos MD) Kathleen Olguin Nov 27, 2017 16:27 Kim Santos MD Nov 27, 2017 17:37
[2017-11-27] MEDS ORDERED: ACETAMINOPHEN 500 MG CPLT PO PRN (16:30)
[2017-11-28] VITALS (10 sets, daily range): BP systolic 103–120; BP diastolic 52–63; PULSE 87–92; RESP 14–18; TEMP 97.9–98.1; O2SAT 97–98
[2017-11-28 04:28] LABS: HEMATOCRIT 25.8 % (39.0-51.0); HEMOGLOBIN 8.2 GM/DL (13.0-17.0); MEAN CELL VOLUME 93.6 FL (80.0-100.0); MEAN CORPUSCULAR HEMOGLOBIN 29.7 PG (27.0-34.0); MEAN CORPUSCULAR HGB CONC 31.8 % (32.0-36.0); MEAN PLATELET VOLUME 9.7 FL (7.0-11.0); PLATELET COUNT 142 TH/MM3 (150-450); RED BLOOD COUNT 2.76 MIL/MM3 (4.50-5.90); RED CELL DISTRIBUTION WIDTH 17.4 % (11.6-17.2); WHITE BLOOD COUNT 6.2 TH/MM3 (4.0-11.0)
--- NOTE | 2017-11-28 04:36 | RADRPT ---
EXAM DATE/TIME: 11/28/2017 03:20 [place] COMPARISON: No previous studies available for comparison. INDICATIONS : Short of breath. MEDICAL HISTORY : Myocardial infarction. Congestive heart failure. Hypothyroidism. SURGICAL HISTORY : Pacemaker. CABG. ENCOUNTER: Subsequent ACUITY: 1 week PAIN SCORE: 0/10 LOCATION: Bilateral chest FINDINGS: Patchy bilateral infiltrates, left sided skin rpiya, cardiomegaly, right effusion and right subclav devyn Vas-Cath and right jugular line are again seen. Cardiac pacer/ICD device again noted. CONCLUSION: No significant change has occurred. Billy Person MD on November 28, 2017 at 4:34 Board Certified Radiologist. This report was verified electronically.
[2017-11-28] MEDS: RESP: ALBUTEROL 2.5 MG/IPRATROPIUM 0.5 MG NEB (SCH) NEB ×4 (04:39→20:55)
[2017-11-28 04:56] LABS: ALBUMIN 2.5 GM/DL (3.4-5.0); ALKALINE PHOSPHATASE 220 U/L (45-117); ALT (GPT) 6 U/L (12-78); AST (GOT) 11 U/L (15-37); BICARBONATE 27.2 MEQ/L (21.0-32.0); BLOOD UREA NITROGEN 22 MG/DL (7-18); CHLORIDE 98 MEQ/L (98-107); CREATININE 6.12 MG/DL (0.60-1.30); GLOMERULAR FILTRATION RATE 9 ML/MIN (>89); GLUCOSE,RANDOM 101 MG/DL (74-106); SODIUM (NA) 137 MEQ/L (136-145); TOTAL BILIRUBIN ADULT 0.4 MG/DL (0.2-1.0); TOTAL PROTEIN 5.2 GM/DL (6.4-8.2)
[2017-11-28 05:34] LABS: LYMPHOCYTES 6 % (9-44); METAMYELOCYTES 2 % (0-1); MONOCYTES 22 % (0-8); NEUTROPHIL # MANUAL DIFF 4.3 TH/MM3 (1.8-7.7); POLYS (SEG NEUTROPHILS) 67 % (16-70)
[2017-11-28] MEDS: LEVOTHYROXINE SODIUM 150 MCG TAB PO SCH (06:00)
--- NOTE | 2017-11-28 06:51 | PD.VS.PN ---
Subjective POD #: 8 Procedure(s): L brachial-brachial bypass, ligation of AVF Subjective/Hospital Course More alert, responsive no hand complaints Objective Vitals/I&O Date Time Temp Pulse Resp B/P (MAP) Pulse Ox O2 Delivery O2 Flow Rate FiO2 11/28/17 03:00 87 11/28/17 03:00 97.9 87 18 117/58 (77) 97 11/28/17 03:00 98 Nasal Cannula 2.00 11/27/17 23:00 98.7 89 18 117/58 (77) 98 11/27/17 23:00 89 11/27/17 23:00 98 Nasal Cannula 2.00 11/27/17 21:15 96 Nasal Cannula 2.00 11/27/17 19:00 99.1 89 18 114/58 (76) 99 11/27/17 19:00 99 Nasal Cannula 2.00 11/27/17 19:00 89 11/27/17 15:00 98.1 88 16 111/55 (73) 98 11/27/17 15:00 98 Nasal Cannula 2.00 11/27/17 15:00 88 11/27/17 11:00 98.2 88 16 114/60 (78) 99 11/27/17 11:00 88 11/27/17 11:00 98 Nasal Cannula 2.00 11/27/17 09:41 99 Nasal Cannula 2.00 11/27/17 07:00 98 Nasal Cannula 2.00 11/27/17 07:00 98.1 82 18 97/47 (64) 99 11/27/17 07:00 88 11/28/17 11/28/17 11/28/17 07:00 15:00 23:00 Intake Total 40 ml Output Total 0 ml Balance 40 ml Exam: L UE incision intact, no incisional erythema Hand warm Tissue loss stable. Strong L ulnar, radial, and palmar arch signal Laboratory Laboratory Tests Test 11/27/17 13:30 11/28/17 03:40 Free Thyroxine 1.35 Free Triiodothyronine (T3) pg/dL 1.57 White Blood Count 6.2 Red Blood Count 2.76 Hemoglobin 8.2 Hematocrit 25.8 Mean Corpuscular Volume 93.6 Mean Corpuscular Hemoglobin 29.7 Mean Corpuscular Hemoglobin Concent 31.8 Red Cell Distribution Width 17.4 Platelet Count 142 Mean Platelet Volume 9.7 CBC Comment AUTO DIFF Differential Total Cells Counted 100 Neutrophils % (Manual) 67 Lymphocytes % 6 Monocytes % 22 Eosinophils % 3 Neutrophils # (Manual) 4.3 Metamyelocytes 2 Differential Comment FINAL DIFF MANUAL Platelet Estimate LOW Platelet Morphology Comment NORMAL Blood Urea Nitrogen 22 Creatinine 6.12 Random Glucose 101 Total Protein 5.2 Albumin 2.5 Calcium Level 8.0 Alkaline Phosphatase 220 Aspartate Amino Transf (AST/SGOT) 11 Alanine Aminotransferase (ALT/SGPT) 6 Total Bilirubin 0.4 Sodium Level 137 Potassium Level 4.2 Chloride Level 98 Carbon Dioxide Level 27.2 Anion Gap 12 Estimat Glomerular Filtration Rate 9 Date/Time Source Procedure Growth Status 11/24/17 04:13 Blood Peripheral Blood Fungal Culture Pending Received 11/24/17 04:13 Blood Peripheral Blood Fungal Culture Pending Received 11/22/17 15:38 Fluid Peritoneal Fluid Gram Stain - Final Complete 11/22/17 15:38 Fluid Peritoneal Fluid Body Fluid Culture - Final NO GROWTH IN 72 HRS.--AEROBICALLY OR ... Complete 11/23/17 17:40 Catheter Tip Central Venous Line Fungal Culture - Final Complete Assessment and Plan Plan POD# 8 S/p L UE bypass, access ligation UE warm and bypass patent by exam Continue medical management Discharge Planning Anytime from a vascular surgery standpoint but clearly many other issues (ID, mental status, cardiac, renal) Issa Jansen MD Nov 28, 2017 06:51
[2017-11-28] MEDS: INSULIN ASPART SUPPLEMENTAL SCALE SQ SCH ×4 (08:00→21:00)
[2017-11-28] MEDS: DOCUSATE SODIUM 50 MG/SENNA 8.6 MG TAB PO SCH ×3 (08:32→21:00)
[2017-11-28] MEDS: THYROID 60 MG TAB PO SCH ×3 (08:32→21:00)
[2017-11-28] MEDS: CLOPIDOGREL 75 MG TAB PO SCH ×2 (08:32→09:00)
[2017-11-28] MEDS: HEPARIN SODIUM - SQ 10,000 UNITS/ML VIAL SQ SCH ×2 (08:32→21:00)
[2017-11-28] MEDS: PANTOPRAZOLE SOD 20 MG DELAYED RELEASE TAB PO SCH ×2 (08:33→09:00)
[2017-11-28] MEDS: ASPIRIN EC 81 MG TABEC PO SCH ×2 (08:33→09:00)
[2017-11-28] MEDS: MIDODRINE 5 MG TAB PO SCH ×3 (08:34→16:29)
[2017-11-28] MEDS: SODIUM CHLORIDE 0.9% FLUSH 10 ML FLUSH IV FLUSH SCH ×2 (08:35→21:00)
[2017-11-28] MEDS: CALCIUM ACETATE 667 MG CAP PO SCH ×3 (08:35→16:26)
--- NOTE | 2017-11-28 08:42 | HHI.CCPN ---
Subjective Remarks/Hospital Course 67-year-old male, has been at [facility] for the last 15 days, transferred to [facility] for vascular evaluation. Patient has known end-stage renal disease and gets hemodialysis every Sunday and Sunday. He had a left upper extremity AV fistula, and it had some problem, so he underwent left upper extremity access revision, left upper extremity distal revascularization and interval ligation, last August 07, 2017. He was discharged, and apparently the fistula was working okay, and during that admission also he had that left middle finger dry gangrene which was felt to be ischemic in nature due to steal syndrome. As an outpatient, his fistula apparently stopped working, so he had a permacath placed in his right IJ. Patient stated that he's had problem on and off with low blood pressure for the last 4 months. The hypotension were getting worse and he ended up getting admitted at [facility] where he stayed for at least 15 days. During that admission, he had some positive blood culture done on November 05 that grew Enterobacter cloaca. Blood culture from November 07 were negative. His permacath was removed on November 07 and the culture of that was negative. Patient underwent L UE bypass brachial-brachial and ligation of the AV fistula. Is scheduled for permacath placement tomorrow morning and remains in the ICU sedated and intubated. Subjective: 11/21: Afebrile .The patient remains intubated and sedated. Plan for permacath placement this a.m.. Will resume ventilator weaning postoperatively. 11/22: Attempted CPAP trials postoperatively yesterday, unsuccessful. Patient continues on phenylephrine currently a 60 mics/minute. Propofol discontinued Precedex infusion initiated CPAP trials are reinitiated this a.m. with plans for SBT later this morning and possible extubation. 11/23: Getting HD. Patient is awake, but very weak. On CPAP but requiring high pressure support 20. Had US guided paracentesis yesterday with 6L fluid removed- chylous. Remains on Precedex and remains on Shon-Synephrine at 60 mcg/min increased to 100 mcg/min 11/24: Remains intubated off all sedation. Requiring Shon-Synephrine at 80 mcg/ min to keep map above 65. HD with 2L removed. Left groin central line was removed and right groin hemodialysis catheter was removed yesterday 11/23/17. New right IJ central line placed yesterday 11/25: Extubated yesterday tolerating well respiratory harris. Remains on Shon- Synephrine to maintain map above 65. Cultures remain negative. Patient intermittently not cooperative with care. He is oriented 2 11/26: At around 2 AM today had episode of unresponsiveness, correlating with hypotension was hard to awake. Currently patient is awake but very lethargic voice is very soft but oriented to person and place. I will hold the Neurontin avoid all sedation currently on Shon-Synephrine at 30 mcg/min. completed hemodialysis today with 3L removed 11/27: Mentation and alertness seems to be slightly improved. TSH elevated at 8.8, increase Synthroid to 150 mcg per day. Patient is oriented to person and place. Remains very weak 11/28: Somnolent but wakes up easily, remains oriented to person. Chest x-ray unchanged. No evidence of new weakness. Discussed with Dr. Jansen Objective Vital Signs Date Time Temp Pulse Resp B/P (MAP) Pulse Ox O2 Delivery O2 Flow Rate FiO2 11/28/17 07:00 89 11/28/17 03:00 97.9 18 117/58 (77) 97 11/28/17 03:00 Nasal Cannula 2.00 11/24/17 08:12 40 Intake and Output 11/28/17 11/28/17 11/29/17 08:00 16:00 00:00 Intake Total 40 ml Output Total 0 ml Balance 40 ml Result Diagram: 11/28/17 0340 11/28/17 0340 Imaging Last Impressions Chest X-Ray 11/20/17 0000 Signed Impressions: Service Date/Time: Monday, November 20, 2017 23:22 - CONCLUSION: 1. The superior aspect of the left hemithorax has multiple overlying structures which could obscure a small pneumothorax. Given this limitation, no pneumothorax is identified. 2. Small bilateral pleural effusions with atelectasis at the bases. Sami Deng MD Lower Extremity Ultrasound 11/13/17 0000 Signed Impressions: Service Date/Time: Monday, November 13, 2017 07:52 - CONCLUSION: No DVT seen in either leg. Jewel Kaiser MD Hand X-Ray 11/13/17 0000 Signed Impressions: Service Date/Time: Monday, November 13, 2017 10:18 - CONCLUSION: Osteoporosis. Extensive arterial calcifications. 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 No definite evidence of bony destruction or osteomyelitis Jared Upton MD Objective Remarks GENERAL: Lying on bed breathing lethargic but awake, remained off Shon-Synephrine SKIN: Warm and dry. HEAD: Normocephalic. EYES: No scleral icterus. No injection or drainage. NECK: Supple, trachea midline. No JVD or lymphadenopathy. CARDIOVASCULAR: Regular rate and rhythm no gallops, or rubs. Systolic murmur at the left sternal border. RESPIRATORY: Breath sounds equal bilaterally, diminished at the bases. No accessory muscle use. GASTROINTESTINAL: Abdomen soft, non-tender, protuberant MUSCULOSKELETAL: No cyanosis, or edema. Noted dry gangrene left middle digit. NEURO EXAM: Alert awake oriented 2, lethargic but awake. Pupils brisk and 2 mm bilaterally. Follows commands weakly on all 4 extremities Procedures 11/20 Sp LUE angiogram. 11/21 permacath placement A/P Assessment and Plan Neuro: Metabolic encephalopathy - Off all sedation - Continue PT OT speech - Holding Neurontin - CT head 11/26 negative - TSH elevated, Synthroid increased. B12, ammonia normal Resp: Acute respiratory failure -resolved - Postoperative respiratory failure with failure to wean - Extubated 11/24/17 tolerating well - DuoNeb every 6 hours when necessary for wheezing - EzPAP, Acapella, IS as tolerated - ABG today due to somnolence CVS: Hypotension-resolved Bilateral upper extremity ischemia - s/p L UE bypass - plastics/hand surgery - potential L digit treatment later - Currently on Shon-Synephrine to keep map above 65. DC today - Midodrine 10 mg every 8 hours - Hold carvedilol due to hypotension - Continue aspirin Plavix GI: - Large-volume ascites removed 11/22/17 - f/u cultures negative to date : End-stage renal disease - Hemodialysis per nephrology - PermCath placement 11/21 Endo: Diabetes mellitus - Insulin sliding scale ID: Bacteremia Sepsis (Enterobacter bacteremia, BC 10/16) Possible left femoral line site infection - Antibiotics per ID (Rocephin) - Repeat blood culture neg to date - Single dose of Micafungin given 11/23/17 for erythema around the left central line site DVT GI prophylaxis - Teds SCDs - Subcutaneous heparin - Pepcid DCd Femoral central line and vascath 11/23/17 New RIJ central line placed 11/23-DC today Critical Care: Level 2 Hospitalist consulted to see him care in a.m. 11/29/17 Pratik Gallardo MD Nov 28, 2017 08:42
[2017-11-28] MEDS: NYSTATIN 100,000 UNIT/GM CREAM 15 GM TOPICAL SCH ×2 (10:29→21:00)
[2017-11-28] MEDS: BACITRACIN TOP OINT 15 GM TUBE TOPICAL SCH ×2 (10:30→21:00)
--- NOTE | 2017-11-28 15:23 | HHI.IDPN ---
Subjective Subjective Remarks Patient is a 67-year-old male, has been at [facility] for the last 15 days, transferred to [facility] for vascular evaluation. Patient has known end-stage renal disease and gets hemodialysis every Sunday and Sunday. He had a left upper extremity AV fistula, and it had some problem, so he underwent left upper extremity access revision, left upper extremity distal revascularization and interval ligation, last August 07, 2017. He was discharged, and apparently the fistula was working okay, and during that admission also he had that left middle finger dry gangrene which was felt to be ischemic in nature due to steal syndrome. As an outpatient, his fistula apparently stopped working, so he had a permacath placed in his right IJ. Patient stated that he's had problem on and off with low blood pressure for the last 4 months. The hypotension were getting worse and he ended up getting admitted at [facility] where he stayed for at least 15 days. During that admission, he had some positive blood culture done on November 05 that grew Enterobacter cloaca. Blood culture from November 07 were negative. His permacath was removed on November 07 and the culture of that was negative. Patient was apparently getting IV cefepime, and there was an infectious disease specialist monitoring him for his infection. Patient stated that he's had some reaction to the cefepime and he describes it as burning sensation. Patient is currently afebrile. There was evaluation of his AV fistula which shows thrombosis of his DRIL. He has now been transferred to [facility] for vascular evaluation. Infectious disease consultation has been requested to evaluate for sepsis. notes reviewed D/W RN Lethargic today Has not had HD today PO intake very poor CXR no change ABG some increase in pCO2 Antibiotics Current Medications Medications (Trade) Dose Ordered Sig/Renny Route Start Time Stop Time Status Last Admin (NS Flush) 2 ml BID IV FLUSH 11/12/17 21:00 11/28/17 08:35 (Tylenol) 650 mg Q4H PRN PO 11/12/17 20:00 11/24/17 05:32 (Zofran Inj) 4 mg Q6H PRN IVP 11/12/17 20:00 (Narcan Inj) 0.4 mg UNSCH PRN IV PUSH 11/12/17 20:00 (Senokot) 17.2 mg Q12H PRN PO 11/12/17 20:00 (D50w (Vial) Inj) 50 ml UNSCH PRN IV PUSH 11/12/17 23:30 (Glucagon Inj) 1 mg UNSCH PRN OTHER 11/12/17 23:30 (NovoLOG SUPPLEMENTAL SCALE) 1 ACHS SLIDING SCALE SQ 11/13/17 08:00 11/20/17 17:00 (Phoslo) 667 mg TID PO 11/13/17 09:00 11/28/17 08:35 (Ecotrin Ec) 162 mg DAILY PO 11/13/17 09:00 11/28/17 08:33 (Plavix) 75 mg DAILY PO 11/13/17 09:00 Future hold 11/28/17 08:32 (Baciguent Oint) 1 applic Q12HR TOPICAL 11/13/17 21:00 11/28/17 10:30 Sodium Chloride 1,000 ml @ 0 mls/hr Q0M PRN OTHER 11/13/17 14:09 11/23/17 11:30 (Heparin Inj) 8,000 units UNSCH PRN IV FLUSH 11/13/17 14:15 11/15/17 15:23 Sodium Chloride 1,000 ml @ 200 mls/hr Q5H PRN IV 11/13/17 14:09 11/26/17 07:15 Sodium Chloride 1,000 ml @ 0 mls/hr Q0M PRN OTHER 11/13/17 14:09 (Mannitol Inj) 12.5 gm UNSCH PRN IV 11/13/17 14:15 11/17/17 11:53 Albumin Human 100 ml @ 60 mls/hr UNSCH PRN IV 11/13/17 14:15 11/26/17 07:15 (NS Flush) 5 ml UNSCH PRN IV FLUSH 11/13/17 14:15 (Heparin Inj) UNSCH PRN .XX 11/13/17 14:15 11/26/17 07:14 (Gentamicin Inj) 20 mg UNSCH PRN OTHER 11/13/17 14:15 11/26/17 07:14 (Zofran Inj) 4 mg UNSCH PRN IV PUSH 11/13/17 14:15 (Tylenol) 650 mg UNSCH PRN PO 11/13/17 14:15 11/18/17 08:40 (Benadryl) 25 mg UNSCH PRN PO 11/13/17 14:15 (Nitrostat Sl) 0.4 mg UNSCH PRN SL 11/13/17 14:15 (Catapres) 0.1 mg UNSCH PRN PO 11/13/17 14:15 (Epogen Inj) 4,000 units UNSCH PRN IV PUSH 11/13/17 14:15 11/26/17 07:13 (Gelfoam 12 Mm/7 Mm Top) 1 foam UNSCH PRN TOP 11/13/17 14:15 Ceftriaxone Sodium 2000 mg/ Sodium Chloride 100 ml @ 200 mls/hr Q24H IV 11/13/17 16:00 11/27/17 15:58 (Coreg) 3.125 mg BID PO 11/16/17 21:00 Future Hold 11/22/17 08:37 (Protonix) 20 mg DAILY PO 11/17/17 09:00 11/28/17 08:33 (Neurontin) 100 mg TID PO 11/20/17 18:00 Future Hold 11/25/17 18:34 ([place] Thyroid) 60 mg BID PO 11/20/17 21:00 11/28/17 08:32 (Roxicodone) 5 mg Q4H PRN PO 11/20/17 15:15 (Dilaudid) 2 mg Q4H PRN PO 11/20/17 15:15 (Morphine Inj) 2 mg Q1H PRN IV PUSH 11/20/17 15:15 (Marleny-Colace) 1 tab BID PO 11/20/17 21:00 11/28/17 08:32 (Milk Of Magnesia Liq) 30 ml Q12H PRN PO 11/20/17 15:15 (Senokot) 17.2 mg Q12H PRN PO 11/20/17 15:15 (Dulcolax Supp) 10 mg DAILY PRN RECTAL 11/20/17 15:15 (Lactulose Liq) 30 ml DAILY PRN PO 11/20/17 15:15 Propofol 100 ml @ 2.841 mls/ hr TITRATE PRN IV 11/20/17 16:00 Future Hold 11/22/17 03:36 (Brethine Inj) 1 mg UNSCH PRN SQ 11/20/17 17:30 (NS Flush) 5 ml UNSCH PRN IV FLUSH 11/20/17 17:45 (Heparin Inj) 2,000 units UNSCH PRN IV FLUSH 11/20/17 17:45 (Duoneb Neb) 1 ampule Q4HR NEB PRN NEB 11/21/17 08:45 11/21/17 08:47 (Mycostatin Cream) 1 applic Q12HR TOPICAL 11/24/17 14:00 11/28/17 10:29 (Proamatine) 10 mg BID@0900,1800 PO 11/25/17 18:00 11/28/17 08:34 (Duoneb Neb) 1 ampule Q6HR NEB NEB 11/25/17 16:00 11/28/17 09:55 (Heparin Inj) 5,000 units Q12HR SQ 11/26/17 21:00 11/28/17 08:32 (Synthroid) 150 mcg DAILY@0600 PO 11/28/17 06:00 11/28/17 06:00 (Tylenol) 500 mg Q6H PRN PO 11/27/17 16:30 Lines CL site ok. Permacath site ok. Past Medical History ESRD DM CAD HF. HTN Enlarged liver, and ascites Past Surgical History Pacemaker CABGx4 with mitral valvuloplasty in february 2005 Right fifth toe amputation Right shoulder rotator cuff repair Has had repeated paracentesis to drain his ascites Allergies: Coded Allergies: adhesive (Unverified Adverse Reaction, Severe, SKIN BREAKDOWN/ULCERS, ) Uncoded Allergies: MSG (Allergy, Intermediate, bowel problems, 08/02/17) Objective . Vital Signs Date Time Temp Pulse Resp B/P (MAP) Pulse Ox O2 Delivery O2 Flow Rate FiO2 11/28/17 12:00 97 Nasal Cannula 2.00 11/28/17 12:00 98.1 89 18 104/52 (69) 97 11/28/17 11:00 88 11/28/17 09:55 97 Nasal Cannula 2.00 11/28/17 08:00 98.0 88 18 103/57 (72) 97 11/28/17 08:00 97 Nasal Cannula 2.00 11/28/17 07:00 89 11/28/17 03:00 87 11/28/17 03:00 97.9 87 18 117/58 (77) 97 11/28/17 03:00 98 Nasal Cannula 2.00 11/27/17 23:00 98.7 89 18 117/58 (77) 98 11/27/17 23:00 89 11/27/17 23:00 98 Nasal Cannula 2.00 11/27/17 21:15 96 Nasal Cannula 2.00 11/27/17 19:00 99.1 89 18 114/58 (76) 99 11/27/17 19:00 99 Nasal Cannula 2.00 11/27/17 19:00 89 11/28/17 11/28/17 11/29/17 15:00 23:00 07:00 Intake Total 300 ml Balance 300 ml IV Total 300 ml . Laboratory Tests Test 11/28/17 03:40 White Blood Count 6.2 TH/MM3 Red Blood Count 2.76 MIL/MM3 Hemoglobin 8.2 GM/DL Hematocrit 25.8 % Mean Corpuscular Volume 93.6 FL Mean Corpuscular Hemoglobin 29.7 PG Mean Corpuscular Hemoglobin Concent 31.8 % Red Cell Distribution Width 17.4 % Platelet Count 142 TH/MM3 Mean Platelet Volume 9.7 FL CBC Comment AUTO DIFF Differential Total Cells Counted 100 Neutrophils % (Manual) 67 % Lymphocytes % 6 % Monocytes % 22 % Eosinophils % 3 % Neutrophils # (Manual) 4.3 TH/MM3 Metamyelocytes 2 % Differential Comment FINAL DIFF MANUAL Platelet Estimate LOW Platelet Morphology Comment NORMAL Laboratory Tests Test 11/27/17 13:30 11/28/17 03:40 Free Thyroxine 1.35 NG/DL Free Triiodothyronine (T3) pg/dL 1.57 PG/ML Blood Urea Nitrogen 22 MG/DL Creatinine 6.12 MG/DL Random Glucose 101 MG/DL Total Protein 5.2 GM/DL Albumin 2.5 GM/DL Calcium Level 8.0 MG/DL Alkaline Phosphatase 220 U/L Aspartate Amino Transf (AST/SGOT) 11 U/L Alanine Aminotransferase (ALT/SGPT) 6 U/L Total Bilirubin 0.4 MG/DL Sodium Level 137 MEQ/L Potassium Level 4.2 MEQ/L Chloride Level 98 MEQ/L Carbon Dioxide Level 27.2 MEQ/L Anion Gap 12 MEQ/L Estimat Glomerular Filtration Rate 9 ML/MIN Imaging Chest X-Ray 11/28/17 0600 Signed Impressions: Service Date/Time: Tuesday, November 28, 2017 03:20 - CONCLUSION: No significant change has occurred. Billy Person MD Head CT 11/26/17 0000 Signed Impressions: Service Date/Time: Sunday, November 26, 2017 15:27 - CONCLUSION: Negative acute process.. Meir Oden MD FACR Cyst Biopsy Asp-Paracentesis US 11/22/17 0000 Signed Impressions: Service Date/Time: November 15:20 - CONCLUSION: Uncomplicated ultrasound guided paracentesis. 6 L of chylous appearing fluid was removed. Taj Oden MD Catheter Placement X-Ray 11/21/17 2954 Signed Impressions: Service Date/Time: Tuesday, November 21, 2017 11:42 - CONCLUSION: Uncomplicated PermaCath placement as above. James Mike MD Lower Extremity Ultrasound 11/13/17 0000 Signed Impressions: Service Date/Time: Monday, November 13, 2017 07:52 - CONCLUSION: No DVT seen in either leg. Jewel Kaiser MD Hand X-Ray 11/13/17 0000 Signed Impressions: Service Date/Time: Monday, November 13, 2017 10:18 - CONCLUSION: Osteoporosis. Extensive arterial calcifications. 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 No definite evidence of bony destruction or osteomyelitis Jared Upton MD Physical Exam GENERAL: Awakens easily, did not follow, NAD SKIN: Cool and dry. No rash. Edematous EYES: [place] conjunctiva. No petechia or hemorrhage. No scleral icterus. EARS, NOSE AND THROAT: NAD. NECK: Trachea midline, supple and not tender CARDIOVASCULAR: Regular rate and rhythm. Has systolic murmur over L precordium and base of the heart RESPIRATORY: Clear to auscultation. No rales, wheezing or rhonchi. Decreased at both bases ABDOMEN: Soft, and non-tender, bowel sounds present and hypoactive. No guarding. No rebound. EXTREMITIES: No clubbing, cyanosis. Has edema of both feet and UE. Dry gangrene noted. Incision LUE dry, no redness NEUROLOGICAL: lethargic LINES: No evidence of infection Assessment & Plan Remarks IMPRESSION Septic Thrombophlebitis: Enterobacter Enterobacter bacteremia, BC 11/05 (+), ?source - permacath C/S negative (?due to previous Abx) - concern with infected thrombus LUE AVF - ?other endovascular focus Thrombosis DRIL LUE AVF S/P Bypass LUE and ligation of AVF and DRIL ESRD on HD MWF Ascites, ?primary liver problem or other etiology LMF dry gangrene Encephalopathy, ?metabolic RECOMMENDATION Continue IV Rocephin ?Brain MRI Follow temps Continue progress Follow new C/S D/W RN Spoke with Tex Martinezmireille Gatica MD Nov 28, 2017 15:23
[2017-11-28] MEDS: cefTRIAXone INJ 2,000 MG in SODIUM CHLORIDE 0.9% INJ 100 ML IV SCH (16:34)
[2017-11-28] MEDS: ALBUMIN 25% INJ 100 ML IV PRN ×2 (17:15→18:21)
[2017-11-28] MEDS: EPOETIN ALFA 10,000 UNITS/ML VIAL IV PUSH PRN (20:06)
[2017-11-28] MEDS: GENTAMICIN SULFATE 20 MG/2 ML VIAL OTHER PRN (20:07)
[2017-11-28] MEDS: HEPARIN SODIUM - IV 10,000 UNITS/10 ML VIAL PRN (20:07)
--- NOTE | 2017-11-28 20:58 | HHI.NPPN ---
Subjective History of Present Illness Patient is a 67-year-old male with a history of end-stage renal disease on hemodialysis Sunday/Sunday/ Sunday, diabetes, CAD, CHF, hypertension was transferred from [facility] to be evaluated by vascular surgery. Patient states he was admitted to [facility] because he had low blood pressure readings at home. AV fistula has not been functioning or used for 6- 8 weeks and they have been using a permacath for dialysis. Permacath has been removed secondary to possible infection and vas cath has been placed. He has been treated with cefepime IV. Last dialysis was Sunday and 1.5 L removed. Patient has a necrotic left middle finger that patient states has been going on for the last 12 weeks. Additional Remarks Patient seen earlier in the afternoon, was on HD, awake , but remain confused, not in distress. Review of Systems Genitourinary Remarks Objective Data Data 11/28/17 11/29/17 19:00 07:00 Intake Total 350 ml Output Total 0 ml 3000 ml Balance 350 ml -3000 ml IV Total 350 ml Output Urine Total 0 ml Hemodialysis 3000 ml # Bowel Movements 0 Vital Signs Date Time Temp Pulse Resp B/P (MAP) Pulse Ox O2 Delivery O2 Flow Rate FiO2 11/28/17 15:42 94 Nasal Cannula 1.00 11/28/17 15:37 98.1 89 18 104/52 (69) 97 11/28/17 15:00 89 11/28/17 12:00 97 Nasal Cannula 2.00 11/28/17 12:00 98.1 89 18 104/52 (69) 97 11/28/17 11:00 88 11/28/17 09:55 97 Nasal Cannula 2.00 11/28/17 08:00 98.0 88 18 103/57 (72) 97 11/28/17 08:00 97 Nasal Cannula 2.00 11/28/17 07:00 89 11/28/17 03:00 87 11/28/17 03:00 97.9 87 18 117/58 (77) 97 11/28/17 03:00 98 Nasal Cannula 2.00 11/27/17 23:00 98.7 89 18 117/58 (77) 98 11/27/17 23:00 89 11/27/17 23:00 98 Nasal Cannula 2.00 2/13/18 21:15 96 Nasal Cannula 2.00 -: 11/28/17 0340 11/28/17 0340 Tubes & Lines: Perma-Cath Physical Exam General Appearance: No Acute Distress, Comfortable Eyes Eye Exam: Pupils Equal Throat Throat Exam: Oral Mucosa [place] & Moist Pulmonary Resp Exam: Breath Sounds Equal, No Distress, Decreased Bases Cardiology CV Exam: Regular Gastrointestinal/Abdomen GI Exam: Soft, Non-Tender, Bowel Sounds Present Extremeties Extremities Exam: Moderate Edema (Left arm and hand swelling.) Neurologic Neuro Exam: Alert, Awake Psychiatric Psych Exam: Appropriate Responses Assessment/Plan Discussed Condition With: Spouse Assessment Summary: End Stage Renal Disease Problem List: (1) ESRD (end stage renal disease) on dialysis ICD Codes: N18.6 - End stage renal disease; Z99.2 - Dependence on renal dialysis Plan: Dialysis MWF s/p L UE bypass 2/6 ligation of AVF and DRIL Anemia Epogen with dialysis Post Paracentesis done 11/22/17. Not in resp. distress. with nasal cannula. Encephalopathy is almost same. Has off and on confusion. HD now, removing 2-3 liters as tolerated. (2) Gangrene of finger of left hand ICD Codes: I96 - Gangrene, not elsewhere classified Plan: necrotic area on left hand middle finger (3) AV fistula occlusion ICD Codes: T82.898A - Other specified complication of vascular prosthetic devices, implants and grafts, initial encounter Plan: s/p L UE bypass 2/6 ligation of AVF and DRIL (4) Diabetes mellitus ICD Codes: E11.9 - Type 2 diabetes mellitus without complications Plan: Maintain BS between 140mg/dl to 180 mg/dl Kim Santos MD Nov 28, 2017 20:57
[2017-11-29] VITALS (8 sets, daily range): BP systolic 97–115; BP diastolic 44–64; PULSE 89–98; RESP 14–20; TEMP 97.9–98.9; O2SAT 95–99
[2017-11-29] MEDS: RESP: ALBUTEROL 2.5 MG/IPRATROPIUM 0.5 MG NEB (SCH) NEB ×3 (03:32→15:58)
[2017-11-29] MEDS: LEVOTHYROXINE SODIUM 150 MCG TAB PO SCH (06:00)
[2017-11-29] MEDS: INSULIN ASPART SUPPLEMENTAL SCALE SQ SCH ×4 (08:00→20:22)
[2017-11-29] MEDS: THYROID 60 MG TAB PO SCH ×2 (08:46→20:18)
[2017-11-29] MEDS: CLOPIDOGREL 75 MG TAB PO SCH (08:46)
[2017-11-29] MEDS: CALCIUM ACETATE 667 MG CAP PO SCH ×3 (08:46→18:00)
[2017-11-29] MEDS: HEPARIN SODIUM - SQ 10,000 UNITS/ML VIAL SQ SCH ×2 (08:47→20:19)
[2017-11-29] MEDS: PANTOPRAZOLE SOD 20 MG DELAYED RELEASE TAB PO SCH (08:47)
[2017-11-29] MEDS: DOCUSATE SODIUM 50 MG/SENNA 8.6 MG TAB PO SCH ×2 (08:47→20:19)
[2017-11-29] MEDS: ASPIRIN EC 81 MG TABEC PO SCH (08:47)
[2017-11-29] MEDS: BACITRACIN TOP OINT 15 GM TUBE TOPICAL SCH ×2 (08:48→21:00)
[2017-11-29] MEDS: MIDODRINE 5 MG TAB PO SCH ×3 (08:48→23:23)
[2017-11-29] MEDS: NYSTATIN 100,000 UNIT/GM CREAM 15 GM TOPICAL SCH ×2 (08:48→20:21)
[2017-11-29] MEDS: SODIUM CHLORIDE 0.9% FLUSH 10 ML FLUSH IV FLUSH SCH ×2 (08:49→20:18)
--- NOTE | 2017-11-29 09:54 | PD.VS.PN ---
Subjective POD #: 9 Procedure(s): L brachial-brachial bypass, ligation of AVF Subjective/Hospital Course Pt opens eyes with verbal commands Pt does not follow commands L UE warm L UE incision intact with staple closure w/o R/D/S Wounds stable Objective Vitals/I&O Date Time Temp Pulse Resp B/P (MAP) Pulse Ox O2 Delivery O2 Flow Rate FiO2 11/29/17 08:25 95 Nasal Cannula 4.00 11/29/17 07:00 89 11/29/17 07:00 98.7 92 18 104/49 (67) 99 11/29/17 07:00 98 Nasal Cannula 2.00 11/29/17 03:00 98.9 91 14 107/54 (71) 98 11/29/17 03:00 91 11/29/17 03:00 97 Nasal Cannula 2.00 11/28/17 23:00 92 11/28/17 23:00 98 Nasal Cannula 3.00 11/28/17 23:00 97.9 92 14 120/63 (82) 98 11/28/17 19:00 97.9 91 14 104/53 (70) 98 11/28/17 19:00 91 11/28/17 19:00 98 Nasal Cannula 2.00 11/28/17 15:42 94 Nasal Cannula 1.00 11/28/17 15:37 98.1 89 18 104/52 (69) 97 11/28/17 15:00 89 11/28/17 12:00 97 Nasal Cannula 2.00 11/28/17 12:00 98.1 89 18 104/52 (69) 97 11/28/17 11:00 88 11/28/17 09:55 97 Nasal Cannula 2.00 11/29/17 11/29/17 11/29/17 07:00 15:00 23:00 Intake Total 0 ml Output Total 0 ml Balance 0 ml Exam: GENERAL: 67/M opens eyes to verbal commands/ pt does not follow commands SKIN: B UE Warm and dry Incision intact to L UE w/o R/D/S + strong Left Radial/Ulnar/[place] arch signals heard via Doppler Left hand wounds stable w/ improved erythema Laboratory Date/Time Source Procedure Growth Status 11/24/17 04:13 Blood Peripheral Blood Fungal Culture Pending Received 11/24/17 04:13 Blood Peripheral Blood Fungal Culture Pending Received 11/22/17 15:38 Fluid Peritoneal Fluid Gram Stain - Final Complete 11/22/17 15:38 Fluid Peritoneal Fluid Body Fluid Culture - Final NO GROWTH IN 72 HRS.--AEROBICALLY OR ... Complete 11/23/17 17:40 Catheter Tip Central Venous Line Fungal Culture - Final Complete Assessment and Plan Plan POD# 9 S/p L UE bypass, access ligation UE warm and bypass patent by exam Plan Continue medical management Discharge Planning Anytime from a vascular surgery standpoint but clearly many other issues (ID, mental status, cardiac, renal) Renetta Gaviria Nov 29, 2017 09:53
--- NOTE | 2017-11-29 14:14 | HHI.PR ---
Subjective Remarks 67-year-old male, has been at [facility] for the last 15 days, transferred to [facility] for vascular evaluation. Patient has known end-stage renal disease and gets hemodialysis every Sunday and Sunday. He had a left upper extremity AV fistula, and it had some problem, so he underwent left upper extremity access revision, left upper extremity distal revascularization and interval ligation, last August 07, 2017. He was discharged, and apparently the fistula was working okay, and during that admission also he had that left middle finger dry gangrene which was felt to be ischemic in nature due to steal syndrome. As an outpatient, his fistula apparently stopped working, so he had a permacath placed in his right IJ. Patient stated that he's had problem on and off with low blood pressure for the last 4 months. The hypotension were getting worse and he ended up getting admitted at [facility] where he stayed for at least 15 days. During that admission, he had some positive blood culture done on November 05 that grew Enterobacter cloaca. Blood culture from November 07 were negative. His permacath was removed on November 07 and the culture of that was negative. Patient underwent L UE bypass brachial-brachial and ligation of the AV fistula. Is scheduled for permacath placement tomorrow morning and remains in the ICU sedated and intubated. Subjective: 11/21: Afebrile .The patient remains intubated and sedated. Plan for permacath placement this a.m.. Will resume ventilator weaning postoperatively. 11/22: Attempted CPAP trials postoperatively yesterday, unsuccessful. Patient continues on phenylephrine currently a 60 mics/minute. Propofol discontinued Precedex infusion initiated CPAP trials are reinitiated this a.m. with plans for SBT later this morning and possible extubation. 11/23: Getting HD. Patient is awake, but very weak. On CPAP but requiring high pressure support 20. Had US guided paracentesis yesterday with 6L fluid removed- chylous. Remains on Precedex and remains on Shon-Synephrine at 60 mcg/min increased to 100 mcg/min 11/24: Remains intubated off all sedation. Requiring Shon-Synephrine at 80 mcg/ min to keep map above 65. HD with 2L removed. Left groin central line was removed and right groin hemodialysis catheter was removed yesterday 11/23/17. New right IJ central line placed yesterday 11/25: Extubated yesterday tolerating well respiratory harris. Remains on Shon- Synephrine to maintain map above 65. Cultures remain negative. Patient intermittently not cooperative with care. He is oriented 2 11/26: At around 2 AM today had episode of unresponsiveness, correlating with hypotension was hard to awake. Currently patient is awake but very lethargic voice is very soft but oriented to person and place. I will hold the Neurontin avoid all sedation currently on Shon-Synephrine at 30 mcg/min. completed hemodialysis today with 3L removed 11/27: Mentation and alertness seems to be slightly improved. TSH elevated at 8.8, increase Synthroid to 150 mcg per day. Patient is oriented to person and place. Remains very weak 11/28: Somnolent but wakes up easily, remains oriented to person. Chest x-ray unchanged. No evidence of new weakness. Discussed with Dr. Jansen 11-29 patient's been transferred to our service today. Unfortunately did not pass a swallow eval. We'll place an NG tube for tube feedings and for medications. Has some crusting around the right eye. We will try some gentamicin drops Have discussed with family and RN Physical Therapy occupational therapy and speech therapy We will ask nutrition help regarding the tube feeds Objective Vitals Vital Signs Date Time Temp Pulse Resp B/P (MAP) Pulse Ox O2 Delivery O2 Flow Rate FiO2 11/29/17 11:00 97.9 98 20 99/44 (62) 99 11/29/17 11:00 98 Nasal Cannula 3.00 11/29/17 11:00 92 11/29/17 08:25 95 Nasal Cannula 4.00 11/29/17 07:00 89 11/29/17 07:00 98.7 92 18 104/49 (67) 99 11/29/17 07:00 98 Nasal Cannula 2.00 11/29/17 03:00 98.9 91 14 107/54 (71) 98 11/29/17 03:00 91 11/29/17 03:00 97 Nasal Cannula 2.00 11/28/17 23:00 92 11/28/17 23:00 98 Nasal Cannula 3.00 11/28/17 23:00 97.9 92 14 120/63 (82) 98 11/28/17 19:00 97.9 91 14 104/53 (70) 98 11/28/17 19:00 91 11/28/17 19:00 98 Nasal Cannula 2.00 11/28/17 15:42 94 Nasal Cannula 1.00 11/28/17 15:37 98.1 89 18 104/52 (69) 97 11/28/17 15:00 89 I/O 11/28/17 11/28/17 11/28/17 11/29/17 11/29/17 11/29/17 07:00 15:00 23:00 07:00 15:00 23:00 Intake Total 40 ml 300 ml 50 ml 0 ml Output Total 0 ml 3000 ml 0 ml Balance 40 ml 300 ml -2950 ml 0 ml Intake Oral 40 ml 0 ml IV Total 300 ml 50 ml 0 ml Output Urine Total 0 ml 0 ml 0 ml Stool Total 0 ml Hemodialysis 3000 ml # Bowel Movements 0 0 Result Diagram: 11/28/17 0340 11/28/17 0340 Other Results Laboratory Tests Test 11/27/17 13:30 11/28/17 03:40 Free Thyroxine 1.35 NG/DL Free Triiodothyronine (T3) pg/dL 1.57 PG/ML White Blood Count 6.2 TH/MM3 Red Blood Count 2.76 MIL/MM3 Hemoglobin 8.2 GM/DL Hematocrit 25.8 % Mean Corpuscular Volume 93.6 FL Mean Corpuscular Hemoglobin 29.7 PG Mean Corpuscular Hemoglobin Concent 31.8 % Red Cell Distribution Width 17.4 % Platelet Count 142 TH/MM3 Mean Platelet Volume 9.7 FL CBC Comment AUTO DIFF Differential Total Cells Counted 100 Neutrophils % (Manual) 67 % Lymphocytes % 6 % Monocytes % 22 % Eosinophils % 3 % Neutrophils # (Manual) 4.3 TH/MM3 Metamyelocytes 2 % Differential Comment FINAL DIFF MANUAL Platelet Estimate LOW Platelet Morphology Comment NORMAL Blood Urea Nitrogen 22 MG/DL Creatinine 6.12 MG/DL Random Glucose 101 MG/DL Total Protein 5.2 GM/DL Albumin 2.5 GM/DL Calcium Level 8.0 MG/DL Alkaline Phosphatase 220 U/L Aspartate Amino Transf (AST/SGOT) 11 U/L Alanine Aminotransferase (ALT/SGPT) 6 U/L Total Bilirubin 0.4 MG/DL Sodium Level 137 MEQ/L Potassium Level 4.2 MEQ/L Chloride Level 98 MEQ/L Carbon Dioxide Level 27.2 MEQ/L Anion Gap 12 MEQ/L Estimat Glomerular Filtration Rate 9 ML/MIN Imaging Last Impressions Chest X-Ray 11/28/17 0600 Signed Impressions: Service Date/Time: Tuesday, November 28, 2017 03:20 - CONCLUSION: No significant change has occurred. Billy Person MD Head CT 11/26/17 0000 Signed Impressions: Service Date/Time: Sunday, November 26, 2017 15:27 - CONCLUSION: Negative acute process.. Meir Oden MD FACR Cyst Biopsy Asp-Paracentesis US 11/22/17 0000 Signed Impressions: Service Date/Time: November 15:20 - CONCLUSION: Uncomplicated ultrasound guided paracentesis. 6 L of chylous appearing fluid was removed. Taj Oden MD Catheter Placement X-Ray 11/21/17 1554 Signed Impressions: Service Date/Time: Tuesday, November 21, 2017 11:42 - CONCLUSION: Uncomplicated PermaCath placement as above. James Mike MD Lower Extremity Ultrasound 11/13/17 0000 Signed Impressions: Service Date/Time: Monday, November 13, 2017 07:52 - CONCLUSION: No DVT seen in either leg. Jewel Kaiser MD Hand X-Ray 11/13/17 0000 Signed Impressions: Service Date/Time: Monday, November 13, 2017 10:18 - CONCLUSION: Osteoporosis. Extensive arterial calcifications. 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 No definite evidence of bony destruction or osteomyelitis Jared Upton MD Objective Remarks GENERAL: Arousable quite lethargic at this time SKIN: Warm and dry. HEAD: Atraumatic. Normocephalic. EYES: Pupils equal and round. No scleral icterus. No injection or drainage. Crusting around both eyes ENT: No nasal bleeding or discharge. Mucous membranes pink and moist. NECK: Trachea midline. No JVD. CARDIOVASCULAR: Regular rate and rhythm. S1-S2 no S3 or S4 RESPIRATORY: No accessory muscle use. Clear to auscultation. Breath sounds equal bilaterally. Coarse breath sounds bilaterally GASTROINTESTINAL: Abdomen soft, non-tender, nondistended. Hepatic and splenic margins not palpable. MUSCULOSKELETAL: Extremities without clubbing, cyanosis, or edema. No obvious deformities. NEUROLOGICAL: Arousable. No obvious cranial nerve deficits. Motor grossly within normal limits. 4 out of 5 muscle strength in the arms and legs. ABNormal speech. PSYCHIATRIC: INAppropriate mood and affect; insight and judgment ABnormal. Procedures 11/20 Sp LUE angiogram. 11/21 permacath placement Medications and IVs Current Medications Sodium Chloride (NS Flush) 2 ml UNSCH PRN IV FLUSH FLUSH AFTER USING IV ACCESS ; Start 11/12/17 at 20:00; Stop 11/20/17 at 15:26; Status DC Sodium Chloride (NS Flush) 2 ml BID IV FLUSH Last administered on 11/29/17at 08: 49; Start 11/12/17 at 21:00 Acetaminophen (Tylenol) 650 mg Q4H PRN PO TEMP > 100.4 Last administered on 08/01at 05:32; Start 11/12/17 at 20:00 Ondansetron HCl (Zofran Inj) 4 mg Q6H PRN IVP NAUSEA OR VOMITING; Start at 20:00 Naloxone HCl (Narcan Inj) 0.4 mg UNSCH PRN IV PUSH SEE LABEL COMMENTS; Start at 20:00 Magnesium Hydroxide (Milk Of Magnesia Liq) 30 ml Q12H PRN PO Mild constipation ; Start 11/12/17 at 20:00; Stop 11/20/17 at 15:26; Status DC Sennosides (Senokot) 17.2 mg Q12H PRN PO Moderate constipation; Start 11/12/17 at 20:00 Bisacodyl (Dulcolax Supp) 10 mg DAILY PRN RECTAL SEVERE CONSITIPATION; Start at 20:00; Stop 11/20/17 at 15:26; Status DC Lactulose (Lactulose Liq) 30 ml DAILY PRN PO SEVERE CONSITIPATION; Start at 20:00; Stop 11/20/17 at 15:26; Status DC Morphine Sulfate (Morphine Inj) 2 mg Q3H PRN IV PUSH pain 1-5; Start 11/12/17 at 23:30; Stop 11/20/17 at 15:26; Status DC Morphine Sulfate (Morphine Inj) 4 mg Q3H PRN IV PUSH pain 6-10; Start 11/12/17 at 23:30; Stop 11/20/17 at 15:26; Status DC Heparin Sodium (Porcine) (Heparin Inj) 5,000 units Q8HR SQ Last administered on 11/26/17at 06:00; Start 11/13/17 at 06:00; Stop 11/26/17 at 09:04; Status DC Levothyroxine Sodium (Synthroid) 125 mcg DAILY@0600 PO Last administered on at 06:00; Start 11/13/17 at 06:00; Stop 11/27/17 at 08:41; Status DC Dextrose (D50w (Vial) Inj) 50 ml UNSCH PRN IV PUSH HYPOGLYCEMIA-SEE COMMENTS; Start 11/12/17 at 23:30 Glucagon (Glucagon Inj) 1 mg UNSCH PRN OTHER HYPOGLYCEMIA-SEE COMMENTS; Start 11/12/17 at 23:30 Insulin Aspart (NovoLOG SUPPLEMENTAL SCALE) 1 ACHS SLIDING SCALE SQ Last administered on 11/20/17at 17:00; Start 11/13/17 at 08:00 Calcium Acetate (Phoslo) 667 mg TID PO Last administered on 11/29/17at 08:46; Start 11/13/17 at 09:00 Carvedilol (Coreg) 3.125 mg DAILY PO Last administered on 11/16/17 08:24; Start 11/13/17 at 09:00; Stop 11/17/17 at 11:10; Status DC Aspirin (Ecotrin Ec) 162 mg DAILY PO Last administered on 11/29/17at 08:47; Start 11/13/17 at 09:00 Clopidogrel Bisulfate (Plavix) 75 mg DAILY PO Last administered on 11/29/17at 08 :46; Start 11/13/17 at 09:00; Status Future hold Bacitracin (Baciguent Oint) 1 applic Q12HR TOPICAL Last administered on at 08:48; Start 11/13/17 at 21:00 Sodium Chloride 1,000 ml @ 0 mls/hr Q0M PRN OTHER For Prime & Rinse Back Last administered on 11/23/17at 11:30; Start 11/13/17 at 14:09 Heparin Sodium (Porcine) (Heparin Inj) 8,000 units UNSCH PRN IV FLUSH WITH DIALYSIS Last administered on 11/15/17at 15:23; Start 11/13/17 at 14:15 Sodium Chloride 1,000 ml @ 200 mls/hr Q5H PRN IV WITH DIALYSIS Last administered on 11/26/17at 07:15; Start 11/13/17 at 14:09 Sodium Chloride 1,000 ml @ 0 mls/hr Q0M PRN OTHER WITH DIALYSIS; Start at 14:09 Mannitol (Mannitol Inj) 12.5 gm UNSCH PRN IV WITH DIALYSIS Last administered on 11/17/17at 11:53; Start 11/13/17 at 14:15 Albumin Human 100 ml @ 60 mls/hr UNSCH PRN IV WITH DIALYSIS Last administered on 11/28/17at 18:21; Start 11/13/17 at 14:15 Sodium Chloride (NS Flush) 5 ml UNSCH PRN IV FLUSH WITH DIALYSIS; Start at 14:15 Heparin Sodium (Porcine) (Heparin Inj) UNSCH PRN .XX WITH DIALYSIS Last administered on 11/28/17at 20:07; Start 11/13/17 at 14:15 Gentamicin Sulfate (Gentamicin Inj) 20 mg UNSCH PRN OTHER WITH DIALYSIS Last administered on 11/28/17at 20:07; Start 11/13/17 at 14:15 Ondansetron HCl (Zofran Inj) 4 mg UNSCH PRN IV PUSH WITH DIALYSIS; Start at 14:15 Acetaminophen (Tylenol) 650 mg UNSCH PRN PO for headach, pain, temp > 101F Last administered on 11/18/17at 08:40; Start 11/13/17 at 14:15 Diphenhydramine HCl (Benadryl) 25 mg UNSCH PRN PO for hives/itching/anaphylaxis ; Start 11/13/17 at 14:15 Nitroglycerin (Nitrostat Sl) 0.4 mg UNSCH PRN SL CHEST PAIN; Start 11/13/17 at 14:15 Clonidine (Catapres) 0.1 mg UNSCH PRN PO for BP > 180/100 X 2 readings; Start 11/13/17 at 14:15 Epoetin Hayden (Epogen Inj) 4,000 units UNSCH PRN IV PUSH WITH DIALYSIS Last administered on 11/28/17at 20:06; Start 11/13/17 at 14:15 Gelatin (Gelfoam 12 Mm/7 Mm Top) 1 foam UNSCH PRN TOP SEE LABEL COMMENTS; Start 11/13/17 at 14:15 Ceftriaxone Sodium 2000 mg/ Sodium Chloride 100 ml @ 200 mls/hr Q24H IV Last administered on 11/28/17at 16:34; Start 11/13/17 at 16:00 Heparin Sodium/ Sodium Chloride 1,000 ml @ As Directed STK-MED ONCE .ROUTE Last administered on 11/15/17at 11:27; Start 11/15/17 at 11:27; Stop 11/15/17 at 11: 28; Status DC Midazolam HCl (Versed Inj) 2 mg STK-MED ONCE .ROUTE Last administered on at 11:36; Start 11/15/17 at 11:27; Stop 11/15/17 at 11:28; Status DC Fentanyl Citrate (fentaNYL INJ) 100 mcg STK-MED ONCE .ROUTE Last administered on 11/15/17at 11:37; Start 11/15/17 at 11:27; Stop 11/15/17 at 11:28; Status DC Heparin Sodium (Porcine) (Heparin Inj) 10,000 units STK-MED ONCE .ROUTE Last administered on 11/15/17at 11:46; Start 11/15/17 at 11:45; Stop 11/15/17 at 11:46; Status DC Iohexol (OMNIPAQUE 350 INJ ([place] [place] Hostess)) 100 ml STK-MED ONCE OTHER ; Start at 19:16; Stop 11/15/17 at 14:06; Status DC Carvedilol (Coreg) 3.125 mg BID PO Last administered on 11/22/17at 08:37; Start 11/16/17 at 21:00; Status Future Hold Pantoprazole Sodium (Protonix) 20 mg DAILY PO Last administered on 11/29/17at 08 :47; Start 11/17/17 at 09:00 Heparin Sodium (Porcine) (Heparin Inj) 5,000 units Q12HR SQ Last administered on 11/18/17at 08:31; Start 11/16/17 at 21:00; Stop 11/25/17 at 12:00; Status DC Lactated Ringer's 1,000 ml @ 30 mls/hr Q24H PRN IV SEE LABEL COMMENTS; Start at 05:15; Stop 11/21/17 at 05:18; Status DC Sodium Chloride 500 ml @ 30 mls/hr [id number] PRN IV SEE LABEL COMMENTS; Start 11/20/17 at 05:15; Stop 11/23/17 at 05:14; Status DC Metoprolol Tartrate (Lopressor) 25 mg SALES SUPPORT REPRESENTATIVE PRN PO SEE LABEL COMMENTS; Start 11/20/17 at 05:15; Stop 11/23/17 at 05:14; Status DC Povidone Iodine (Betadine 5% Antisepsis Kit) 1 applic SALES SUPPORT REPRESENTATIVE PRN EACH NARE SEE LABEL COMMENTS; Start 11/20/17 at 05:15; Stop 11/23/17 at 05:14; Status DC Chlorhexidine Gluconate (Chlorhexidine 2% Cloth) 3 pack SALES SUPPORT REPRESENTATIVE PRN TOPICAL SEE LABEL COMMENTS; Start 11/20/17 at 05:15; Stop 11/23/17 at 05:14; Status DC Insulin Human Regular (NovoLIN R INJ) See Protocol Table ... SALES SUPPORT REPRESENTATIVE PRN SQ SEE PROTOCOL TABLE; Start 11/20/17 at 05:15; Stop 11/23/17 at 05:14; Status DC Sodium Chloride 500 ml @ 500 mls/hr BOLUS ONCE IV ; Start 11/20/17 at 10:00; Stop 11/20/17 at 16:27; Status DC Protamine Sulfate (Protamine Sulfate Inj) 100 mg STK-MED ONCE .ROUTE ; Start 11/20/17 at 10:49; Stop 11/20/17 at 10:50; Status DC Heparin Sodium (Porcine) (Heparin Inj) 10,000 units STK-MED ONCE .ROUTE ; Start 11/20/17 at 10:49; Stop 11/20/17 at 10:50; Status DC Bupivacaine HCl (Marcaine Pf 0.5% Inj) 20 ml STK-MED ONCE .ROUTE Last administered on 11/20/17at 14:30; Start 11/20/17 at 10:49; Stop 11/20/17 at 10:50; Status DC Thrombin (Thrombin Top [place]) 20,000 units STK-MED ONCE .ROUTE Last administered on 11/20/17at 10:50; Start 11/20/17 at 10:50; Stop 11/20/17 at 10:51; Status DC Heparin Sodium/ Sodium Chloride 500 ml @ As Directed STK-MED ONCE .ROUTE Last administered on 11/20/17at 10:50; Start 11/20/17 at 10:50; Stop 11/20/17 at 10:51; Status DC Cefazolin Sodium/ Dextrose 0 ml @ As Directed STK-MED ONCE .ROUTE ; Start at 10:50; Stop 11/20/17 at 10:51; Status DC Vancomycin HCl (Vancomycin Inj) 1,000 mg STK-MED ONCE .ROUTE Last administered on 11/20/17at 13:06; Start 11/20/17 at 11:39; Stop 11/20/17 at 11:40; Status DC Sodium Chloride 250 ml @ As Directed STK-MED ONCE .ROUTE ; Start 11/20/17 at 11: 39; Stop 11/20/17 at 11:40; Status DC Cisatracurium Besylate (Nimbex Inj) 20 mg STK-MED ONCE .ROUTE ; Start 11/20/17 at 12:10; Stop 11/20/17 at 12:11; Status DC Ketamine HCl (Ketalar Inj) 500 mg STK-MED ONCE .ROUTE ; Start 11/20/17 at 12:10; Stop 11/20/17 at 12:11; Status DC Bupivacaine HCl (Marcaine Pf 0.5% Inj) 30 ml STK-MED ONCE .ROUTE Last administered on 11/20/17at 13:14; Start 11/20/17 at 13:14; Stop 11/20/17 at 13:15; Status DC Iohexol 50 ml @ 0 mls/hr ONCE ONCE IV ; Start 11/20/17 at 13:53; Stop 11/20/17 at 14:17; Status DC Midodrine (Proamatine) 5 mg BID@0900,1800 PO Last administered on 11/24/17at 09: 44; Start 11/21/17 at 09:00; Stop 11/25/17 at 13:26; Status DC Cefazolin Sodium/ Dextrose 50 ml @ 100 mls/hr SALES SUPPORT REPRESENTATIVE IV ; Start 11/20/17 at 14 :45; Stop 11/23/17 at 14:44; Status DC Vancomycin HCl 1000 mg/Sodium Chloride 250 ml @ 250 mls/hr SALES SUPPORT REPRESENTATIVE IV Last administered on 11/21/17at 10:59; Start 11/20/17 at 14:45; Stop 11/23/17 at 14:44; Status DC Gabapentin (Neurontin) 100 mg TID PO Last administered on 11/25/17at 18:34; Start 11/20/17 at 18:00; Status Future Hold Thyroid ([place] Thyroid) 60 mg BID PO Last administered on 11/29/17at 08:46; Start 11/20/17 at 21:00 Oxycodone HCl (Roxicodone) 5 mg Q4H PRN PO PAIN SCALE 1 TO 5; Start 11/20/17 at 15:15 Hydromorphone HCl (Dilaudid) 2 mg Q4H PRN PO PAIN SCALE 6 TO 10; Start 11/20/17 at 15:15 Morphine Sulfate (Morphine Inj) 2 mg Q1H PRN IV PUSH BREAKTHROUGH PAIN; Start 11/20/17 at 15:15 Senna/Docusate Sodium (Marleny-Colace) 1 tab BID PO Last administered on at 08:47; Start 11/20/17 at 21:00 Magnesium Hydroxide (Milk Of Magnesia Liq) 30 ml Q12H PRN PO Mild constipation ; Start 11/20/17 at 15:15 Sennosides (Senokot) 17.2 mg Q12H PRN PO Moderate constipation; Start 11/20/17 at 15:15 Bisacodyl (Dulcolax Supp) 10 mg DAILY PRN RECTAL SEVERE CONSITIPATION; Start at 15:15 Lactulose (Lactulose Liq) 30 ml DAILY PRN PO SEVERE CONSITIPATION; Start at 15:15 Propofol 100 ml @ As Directed STK-MED ONCE .ROUTE ; Start 11/20/17 at 15:43; Stop 11/20/17 at 15:44; Status DC Phenylephrine HCl (Neosynephrine Inj) 40 mg STK-MED ONCE .ROUTE Last administered on 11/20/17at 15:43; Start 11/20/17 at 15:43; Stop 11/20/17 at 15:44; Status DC Fentanyl Citrate (fentaNYL INJ) 200 mcg STK-MED ONCE .ROUTE ; Start 11/20/17 at 16:18; Stop 11/20/17 at 16:19; Status DC Midazolam HCl (Versed Inj) 2 mg STK-MED ONCE .ROUTE ; Start 11/20/17 at 16:18; Stop 11/20/17 at 16:19; Status DC Propofol 100 ml @ 2.841 mls/ hr TITRATE PRN IV SEDATION Last administered on at 03:36; Start 11/20/17 at 16:00; Status Future Hold Phenylephrine HCl 40 mg/Dextrose 500 ml @ 30 mls/hr TITRATE PRN IV Blood Pressure Management Last administered on 11/26/17at 08:22; Start 11/20/17 at 16:00 ; Stop 11/27/17 at 08:43; Status DC Terbutaline Sulfate (Brethine Inj) 1 mg UNSCH PRN SQ FOR EXTRAVASATION PROTOCOL ; Start 11/20/17 at 17:30 Miscellaneous Information ALL NURSING DEPARTME... UNSCH PRN .XX SEE LABEL COMMENTS; Start 11/20/17 at 16:08; Stop 11/21/17 at 16:07; Status DC Miscellaneous Information (RASS Change Order) 1 ea ONCE ONCE XX ; Start at 16:00; Stop 11/20/17 at 17:33; Status DC Sodium Chloride (NS Flush) 5 ml UNSCH PRN IV FLUSH SEE PROTOCOL TABLE; Start at 17:45 Heparin Sodium (Porcine) (Heparin Inj) 2,000 units UNSCH PRN IV FLUSH SEE PROTOCOL TABLE; Start 11/20/17 at 17:45 Ceftriaxone Sodium (Rocephin Inj) 1,000 mg STK-MED ONCE .ROUTE ; Start 11/20/17 at 17:55; Stop 11/20/17 at 17:56; Status DC Sodium Chloride 1,000 ml @ 999 mls/hr BOLUS ONCE IV Last administered on at 05:50; Start 11/21/17 at 05:30; Stop 11/21/17 at 06:30; Status DC Albuterol/ Ipratropium (Duoneb Neb) 1 ampule Q4HR NEB PRN NEB WHEEZING Last administered on 11/21/17at 08:47; Start 11/21/17 at 08:45 Epinephrine HCl (EPINEPHrine (1:10,000) INJ) 1 mg STK-MED ONCE .ROUTE ; Start at 11:28; Stop 11/21/17 at 11:29; Status DC Heparin Sodium (Porcine) (*HEPARIN INJ Periprocedural ONLY) 10,000 units STK- MED ONCE .ROUTE Last administered on 11/21/17at 12:00; Start 11/21/17 at 12:00; Stop 11/21/17 at 12:01; Status DC Fentanyl Citrate (fentaNYL INJ) 100 mcg STK-MED ONCE .ROUTE Last administered on 11/21/17at 12:04; Start 11/21/17 at 12:04; Stop 11/21/17 at 12:05; Status DC Dexmedetomidine HCl 200 mcg/ Sodium Chloride 52 ml @ 4.94 mls/hr TITRATE PRN IV SEDATION Last administered on 11/23/17 05:19; Start 11/22/17 at 07:00; Stop at 09:04; Status DC Albumin Human 100 ml @ 50 mls/hr NOW ONCE IV Last administered on 11/22/17at 10 :45; Start 11/22/17 at 10:45; Stop 11/22/17 at 12:44; Status DC Lidocaine HCl (Xylocaine 1% Inj) 20 ml STK-MED ONCE .ROUTE Last administered on 11/22/17at 15:31; Start 11/22/17 at 16:58; Stop 11/22/17 at 16:59; Status DC Albumin Human (Albumin 25% Inj) 25 gm ONCE ONCE IV Last administered on 17:28; Start 11/22/17 at 17:00; Stop 11/22/17 at 17:01; Status DC Albumin Human (Albumin 25% Inj) 12.5 gm ONCE ONCE IV Last administered on 17:28; Start 11/22/17 at 17:00; Stop 11/22/17 at 17:01; Status DC Vancomycin HCl 1000 mg/Sodium Chloride 250 ml @ 250 mls/hr ONCE ONCE IV Last administered on 11/23/17at 12:45; Start 11/23/17 at 11:45; Stop 11/23/17 at 12:44; Status DC Pharmacy Profile Note 0 ml @ 0 mls/hr UNSCH OTHER ; Start 11/23/17 at 11:45; Stop 11/23/17 at 14:20; Status DC Micafungin Sodium 150 mg/Sodium Chloride 100 ml @ 100 mls/hr ONCE ONCE IV ; Start 11/23/17 at 16:00; Stop 11/23/17 at 16:03; Status DC Micafungin Sodium 150 mg/Sodium Chloride 100 ml @ 100 mls/hr ONCE ONCE IV Last administered on 11/23/17at 17:00; Start 11/23/17 at 17:00; Stop 11/23/17 at 17: 59; Status DC Nystatin (Mycostatin Cream) 1 applic Q12HR TOPICAL Last administered on at 08:48; Start 11/24/17 at 14:00 Midodrine (Proamatine) 10 mg BID@0900,1800 PO Last administered on 11/29/17at 08 :48; Start 11/25/17 at 18:00 Albuterol/ Ipratropium (Duoneb Neb) 1 ampule Q6HR NEB NEB Last administered on 11/29/17at 08:25; Start 11/25/17 at 16:00 Heparin Sodium (Porcine) (Heparin Inj) 5,000 units Q12HR SQ Last administered on 11/29/17at 08:47; Start 11/26/17 at 21:00 Sodium Chloride 250 ml @ As Directed STK-MED ONCE IV ; Start 11/20/17 at 12:00; Stop 11/26/17 at 09:49; Status DC Sodium Chloride 500 ml @ As Directed STK-MED ONCE IV ; Start 11/20/17 at 12:00; Stop 11/26/17 at 09:49; Status DC Lidocaine HCl (Xylocaine-Mpf 1% Inj) 5 ml STK-MED ONCE OTHER ; Start 11/20/17 at 12:00; Stop 11/26/17 at 09:49; Status DC Phenylephrine HCl (Neosynephrine/ NS 1000 Mcg/10ml Syr) 2,000 mcg STK-MED ONCE IV ; Start 11/20/17 at 12:00; Stop 11/26/17 at 09:49; Status DC Phenylephrine HCl (Neosynephrine Inj) 20 mg STK-MED ONCE IV ; Start 11/20/17 at 12:00; Stop 11/26/17 at 09:49; Status DC Propofol (Diprivan 200 Mg/20 ml Inj) 200 mg STK-MED ONCE IV ; Start 11/20/17 at 12:00; Stop 11/26/17 at 09:49; Status DC Sterile Water (Sterile Water For Injection) 20 ml STK-MED ONCE IV ; Start at 12:00; Stop 11/26/17 at 09:49; Status DC Sodium Chloride (Sodium Chloride 0.9% Inj) 20 ml STK-MED ONCE IV ; Start at 12:00; Stop 11/26/17 at 09:49; Status DC Levothyroxine Sodium (Synthroid) 150 mcg DAILY@0600 PO ; Start 11/28/17 at 06:00 Acetaminophen (Tylenol) 500 mg Q6H PRN PO PAIN SCALE 1-5; Start 11/27/17 at 16: 30 A/P Problem List: (1) AV fistula occlusion ICD Code: T82.898A - Other specified complication of vascular prosthetic devices, implants and grafts, initial encounter (2) ESRD (end stage renal disease) on dialysis ICD Code: N18.6 - End stage renal disease; Z99.2 - Dependence on renal dialysis (3) Diabetes mellitus ICD Code: E11.9 - Type 2 diabetes mellitus without complications Assessment and Plan Assessment and Plan Neuro: Metabolic encephalopathy - Off all sedation - Continue PT OT speech therapy-failed swallow evaluation today keep nothing by mouth - Holding Neurontin - CT head 11/26 negative - TSH elevated, Synthroid increased. B12, ammonia normal Resp: Acute respiratory failure -resolved - Postoperative respiratory failure with failure to wean - Extubated 11/24/17 tolerating well - DuoNeb every 6 hours when necessary for wheezing - EzPAP, Acapella, IS as tolerated - ABG today due to somnolence [facility]: Hypotension-resolved Bilateral upper extremity ischemia - s/p L UE bypass - plastics/hand surgery - potential L digit treatment later - Currently on Shon-Synephrine to keep map above 65. DC today off Shon-Synephrine - Midodrine 10 mg every 8 hours - Hold carvedilol due to hypotension - Continue aspirin Plavix GI: - Large-volume ascites removed 11/22/17 - f/u cultures negative to date : End-stage renal disease - Hemodialysis per nephrology - PermCath placement 11/21 Endo: Diabetes mellitus - Insulin sliding scale ID: Bacteremia Sepsis (Enterobacter bacteremia, BC 10/16) Possible left femoral line site infection - Antibiotics per ID (Rocephin) - Repeat blood culture neg to date - Single dose of Micafungin given 11/23/17 for erythema around the left central line site DVT GI prophylaxis - Teds SCDs - Subcutaneous heparin - Pepcid DCd Femoral central line and vascath 11/23/17 New RIJ central line placed 11/23-DC today Dysphagia. Failed swallow eval. Will place NG tube. Consult nutrition for help with tube feeds Conjunctivitis. Started on gentamicin drops Discussed with patient and RN and family Continue aggressive treatment Discharge Planning Pending improvement Patient needs to tolerate a diet which he has not been able to do Meir Schaefer DO Nov 29, 2017 14:14
--- NOTE | 2017-11-29 15:07 | HHI.IDPN ---
Subjective Subjective Remarks Patient is a 67-year-old male, has been at [facility] for the last 15 days, transferred to [facility] for vascular evaluation. Patient has known end-stage renal disease and gets hemodialysis every Sunday and Sunday. He had a left upper extremity AV fistula, and it had some problem, so he underwent left upper extremity access revision, left upper extremity distal revascularization and interval ligation, last August 07, 2017. He was discharged, and apparently the fistula was working okay, and during that admission also he had that left middle finger dry gangrene which was felt to be ischemic in nature due to steal syndrome. As an outpatient, his fistula apparently stopped working, so he had a permacath placed in his right IJ. Patient stated that he's had problem on and off with low blood pressure for the last 4 months. The hypotension were getting worse and he ended up getting admitted at [facility] where he stayed for at least 15 days. During that admission, he had some positive blood culture done on November 05 that grew Enterobacter cloaca. Blood culture from November 07 were negative. His permacath was removed on November 07 and the culture of that was negative. Patient was apparently getting IV cefepime, and there was an infectious disease specialist monitoring him for his infection. Patient stated that he's had some reaction to the cefepime and he describes it as burning sensation. Patient is currently afebrile. There was evaluation of his AV fistula which shows thrombosis of his DRIL. He has now been transferred to [facility] for vascular evaluation. Infectious disease consultation has been requested to evaluate for sepsis. notes reviewed D/W RN Lethargic this morning, more awake this afternoon Had HD yesterday Failed swallowing test today BP ok Repeat BC negative Antibiotics Current Medications Medications (Trade) Dose Ordered Sig/Renny Route Start Time Stop Time Status Last Admin (NS Flush) 2 ml BID IV FLUSH 11/12/17 21:00 11/29/17 08:49 (Tylenol) 650 mg Q4H PRN PO 11/12/17 20:00 11/24/17 05:32 (Zofran Inj) 4 mg Q6H PRN IVP 11/12/17 20:00 (Narcan Inj) 0.4 mg UNSCH PRN IV PUSH 11/12/17 20:00 (Senokot) 17.2 mg Q12H PRN PO 11/12/17 20:00 (D50w (Vial) Inj) 50 ml UNSCH PRN IV PUSH 11/12/17 23:30 (Glucagon Inj) 1 mg UNSCH PRN OTHER 11/12/17 23:30 (NovoLOG SUPPLEMENTAL SCALE) 1 ACHS SLIDING SCALE SQ 11/13/17 08:00 11/20/17 17:00 (Phoslo) 667 mg TID PO 11/13/17 09:00 11/29/17 08:46 (Ecotrin Ec) 162 mg DAILY PO 11/13/17 09:00 11/29/17 08:47 (Plavix) 75 mg DAILY PO 11/13/17 09:00 Future hold 11/29/17 08:46 (Baciguent Oint) 1 applic Q12HR TOPICAL 11/13/17 21:00 11/29/17 08:48 Sodium Chloride 1,000 ml @ 0 mls/hr Q0M PRN OTHER 11/13/17 14:09 11/23/17 11:30 (Heparin Inj) 8,000 units UNSCH PRN IV FLUSH 11/13/17 14:15 11/15/17 15:23 Sodium Chloride 1,000 ml @ 200 mls/hr Q5H PRN IV 11/13/17 14:09 11/26/17 07:15 Sodium Chloride 1,000 ml @ 0 mls/hr Q0M PRN OTHER 11/13/17 14:09 (Mannitol Inj) 12.5 gm UNSCH PRN IV 11/13/17 14:15 11/17/17 11:53 Albumin Human 100 ml @ 60 mls/hr UNSCH PRN IV 11/13/17 14:15 11/28/17 18:21 (NS Flush) 5 ml UNSCH PRN IV FLUSH 11/13/17 14:15 (Heparin Inj) UNSCH PRN .XX 11/13/17 14:15 11/28/17 20:07 (Gentamicin Inj) 20 mg UNSCH PRN OTHER 11/13/17 14:15 11/28/17 20:07 (Zofran Inj) 4 mg UNSCH PRN IV PUSH 11/13/17 14:15 (Tylenol) 650 mg UNSCH PRN PO 11/13/17 14:15 11/18/17 08:40 (Benadryl) 25 mg UNSCH PRN PO 11/13/17 14:15 (Nitrostat Sl) 0.4 mg UNSCH PRN SL 11/13/17 14:15 (Catapres) 0.1 mg UNSCH PRN PO 11/13/17 14:15 (Epogen Inj) 4,000 units UNSCH PRN IV PUSH 11/13/17 14:15 11/28/17 20:06 (Gelfoam 12 Mm/7 Mm Top) 1 foam UNSCH PRN TOP 11/13/17 14:15 Ceftriaxone Sodium 2000 mg/ Sodium Chloride 100 ml @ 200 mls/hr Q24H IV 11/13/17 16:00 11/28/17 16:34 (Coreg) 3.125 mg BID PO 11/16/17 21:00 Future Hold 11/22/17 08:37 (Protonix) 20 mg DAILY PO 11/17/17 09:00 11/29/17 08:47 (Neurontin) 100 mg TID PO 11/20/17 18:00 Future Hold 11/25/17 18:34 ([place] Thyroid) 60 mg BID PO 11/20/17 21:00 11/29/17 08:46 (Roxicodone) 5 mg Q4H PRN PO 11/20/17 15:15 (Dilaudid) 2 mg Q4H PRN PO 11/20/17 15:15 (Morphine Inj) 2 mg Q1H PRN IV PUSH 11/20/17 15:15 (Marleny-Colace) 1 tab BID PO 11/20/17 21:00 11/29/17 08:47 (Milk Of Magnesia Liq) 30 ml Q12H PRN PO 11/20/17 15:15 (Senokot) 17.2 mg Q12H PRN PO 11/20/17 15:15 (Dulcolax Supp) 10 mg DAILY PRN RECTAL 11/20/17 15:15 (Lactulose Liq) 30 ml DAILY PRN PO 11/20/17 15:15 Propofol 100 ml @ 2.841 mls/ hr TITRATE PRN IV 11/20/17 16:00 Future Hold 11/22/17 03:36 (Brethine Inj) 1 mg UNSCH PRN SQ 11/20/17 17:30 (NS Flush) 5 ml UNSCH PRN IV FLUSH 11/20/17 17:45 (Heparin Inj) 2,000 units UNSCH PRN IV FLUSH 11/20/17 17:45 (Duoneb Neb) 1 ampule Q4HR NEB PRN NEB 11/21/17 08:45 11/21/17 08:47 (Mycostatin Cream) 1 applic Q12HR TOPICAL 11/24/17 14:00 11/29/17 08:48 (Proamatine) 10 mg BID@0900,1800 PO 11/25/17 18:00 11/29/17 08:48 (Duoneb Neb) 1 ampule Q6HR NEB NEB 11/25/17 16:00 11/29/17 08:25 (Heparin Inj) 5,000 units Q12HR SQ 11/26/17 21:00 11/29/17 08:47 (Synthroid) 150 mcg DAILY@0600 PO 11/28/17 06:00 (Tylenol) 500 mg Q6H PRN PO 11/27/17 16:30 (Gentamicin Opht 0.3% Soln) 1 drop Q4HR EACH EYE 11/29/17 16:00 Lines Permacath site ok. Past Medical History ESRD DM CAD HF. HTN Enlarged liver, and ascites Past Surgical History Pacemaker CABGx4 with mitral valvuloplasty in february 2005 Right fifth toe amputation Right shoulder rotator cuff repair Has had repeated paracentesis to drain his ascites Allergies: Coded Allergies: adhesive (Unverified Adverse Reaction, Severe, SKIN BREAKDOWN/ULCERS, ) Uncoded Allergies: MSG (Allergy, Intermediate, bowel problems, 08/02/17) Objective . Vital Signs Date Time Temp Pulse Resp B/P (MAP) Pulse Ox O2 Delivery O2 Flow Rate FiO2 11/29/17 11:00 97.9 98 20 99/44 (62) 99 11/29/17 11:00 98 Nasal Cannula 3.00 11/29/17 11:00 92 11/29/17 08:25 95 Nasal Cannula 4.00 11/29/17 07:00 89 11/29/17 07:00 98.7 92 18 104/49 (67) 99 11/29/17 07:00 98 Nasal Cannula 2.00 11/29/17 03:00 98.9 91 14 107/54 (71) 98 11/29/17 03:00 91 11/29/17 03:00 97 Nasal Cannula 2.00 11/28/17 23:00 92 11/28/17 23:00 98 Nasal Cannula 3.00 11/28/17 23:00 97.9 92 14 120/63 (82) 98 11/28/17 19:00 97.9 91 14 104/53 (70) 98 11/28/17 19:00 91 11/28/17 19:00 98 Nasal Cannula 2.00 11/28/17 15:42 94 Nasal Cannula 1.00 11/28/17 15:37 98.1 89 18 104/52 (69) 97 . Laboratory Tests Test 11/28/17 03:40 White Blood Count 6.2 TH/MM3 Red Blood Count 2.76 MIL/MM3 Hemoglobin 8.2 GM/DL Hematocrit 25.8 % Mean Corpuscular Volume 93.6 FL Mean Corpuscular Hemoglobin 29.7 PG Mean Corpuscular Hemoglobin Concent 31.8 % Red Cell Distribution Width 17.4 % Platelet Count 142 TH/MM3 Mean Platelet Volume 9.7 FL CBC Comment AUTO DIFF Differential Total Cells Counted 100 Neutrophils % (Manual) 67 % Lymphocytes % 6 % Monocytes % 22 % Eosinophils % 3 % Neutrophils # (Manual) 4.3 TH/MM3 Metamyelocytes 2 % Differential Comment FINAL DIFF MANUAL Platelet Estimate LOW Platelet Morphology Comment NORMAL Laboratory Tests Test 11/28/17 03:40 Blood Urea Nitrogen 22 MG/DL Creatinine 6.12 MG/DL Random Glucose 101 MG/DL Total Protein 5.2 GM/DL Albumin 2.5 GM/DL Calcium Level 8.0 MG/DL Alkaline Phosphatase 220 U/L Aspartate Amino Transf (AST/SGOT) 11 U/L Alanine Aminotransferase (ALT/SGPT) 6 U/L Total Bilirubin 0.4 MG/DL Sodium Level 137 MEQ/L Potassium Level 4.2 MEQ/L Chloride Level 98 MEQ/L Carbon Dioxide Level 27.2 MEQ/L Anion Gap 12 MEQ/L Estimat Glomerular Filtration Rate 9 ML/MIN Imaging Chest X-Ray 11/28/17 0600 Signed Impressions: Service Date/Time: Tuesday, November 28, 2017 03:20 - CONCLUSION: No significant change has occurred. Billy Person MD Head CT 11/26/17 0000 Signed Impressions: Service Date/Time: Sunday, November 26, 2017 15:27 - CONCLUSION: Negative acute process.. Meir Oden MD FACR Cyst Biopsy Asp-Paracentesis US 11/22/17 0000 Signed Impressions: Service Date/Time: November 15:20 - CONCLUSION: Uncomplicated ultrasound guided paracentesis. 6 L of chylous appearing fluid was removed. Taj Oden MD Catheter Placement X-Ray 11/21/17 1554 Signed Impressions: Service Date/Time: Tuesday, November 21, 2017 11:42 - CONCLUSION: Uncomplicated PermaCath placement as above. James Mike MD Lower Extremity Ultrasound 11/13/17 0000 Signed Impressions: Service Date/Time: Monday, November 13, 2017 07:52 - CONCLUSION: No DVT seen in either leg. Jewel Kaiser MD Hand X-Ray 11/13/17 0000 Signed Impressions: Service Date/Time: Monday, November 13, 2017 10:18 - CONCLUSION: Osteoporosis. Extensive arterial calcifications. 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 No definite evidence of bony destruction or osteomyelitis Jared Upton MD Physical Exam GENERAL: Awakens easily, focusing, did not follow, NAD SKIN: Cool and dry. No rash. Edematous EYES: [place] conjunctiva. No petechia or hemorrhage. No scleral icterus. EARS, NOSE AND THROAT: NAD. NECK: Trachea midline, supple and not tender CARDIOVASCULAR: Regular rate and rhythm. Has systolic murmur over L precordium and base of the heart RESPIRATORY: Clear to auscultation. No rales, wheezing or rhonchi. Decreased at both bases ABDOMEN: Soft, and non-tender, bowel sounds present and hypoactive. No guarding. No rebound. EXTREMITIES: No clubbing, cyanosis. Has edema of both feet and UE. Dry gangrene noted. Incision LUE dry, no redness NEUROLOGICAL: lethargic LINES: No evidence of infection Assessment & Plan Remarks IMPRESSION Septic Thrombophlebitis: Enterobacter Enterobacter bacteremia, BC 11/05 (+), ?source - permacath C/S negative (?due to previous Abx) - concern with infected thrombus LUE AVF - ?other endovascular focus Thrombosis DRIL LUE AVF S/P Bypass LUE and ligation of AVF and DRIL ESRD on HD MWF Ascites, ?primary liver problem or other etiology LMF dry gangrene Encephalopathy, ?metabolic RECOMMENDATION Continue IV Rocephin ?Brain MRI Follow temps Continue progress Follow new C/S D/W Loraine Harris MD Nov 29, 2017 15:07
[2017-11-29] MEDS: cefTRIAXone INJ 2,000 MG in SODIUM CHLORIDE 0.9% INJ 100 ML IV SCH (16:00)
[2017-11-29] MEDS: GENTAMICIN SULFATE 0.3% OPHT SOLN 5 ML BTL EACH EYE SCH ×3 (16:00→23:24)
--- NOTE | 2017-11-29 16:51 | RADRPT ---
EXAM DATE/TIME: 11/29/2017 16:03 [facility] COMPARISON: No previous studies available for comparison. INDICATIONS : Evaluate NG tube placement. MEDICAL HISTORY : Myocardial infarction. Congestive heart failure. Hypothyroidism. Hearing loss. Neuropathy. Afib. Hype rtension. Sleep apnea. Renal disease. Liverdisease. Arthritis. Diabetes. Depression. Anxiety. Skin ca ncer. Blood trasnfusion. SURGICAL HISTORY : CABG Pacemaker. Right rotator cuff. Internal defibrillator. Mitral valve replacement. Abdominal absce ss drainage. Bilateral cataract removal.Removalof sternum wires. Skin cancer removal ENCOUNTER: Subsequent ACUITY: 2 weeks PAIN SCORE: Non-responsive. LOCATION: Bilateral Abdomen FINDINGS: A nasogastric tube descends down into the duodenum. Intestinal gas pattern is nonspecific and benign. Regional skeleton is grossly intact. CONCLUSION: NG tube tip extends into the duodenum Sami Burnett MD on November 29, 2017 at 16:49 Board Certified Radiologist. This report was verified electronically.
--- NOTE | 2017-11-29 18:47 | HHI.NPPN ---
Subjective History of Present Illness Patient is a 67-year-old male with a history of end-stage renal disease on hemodialysis Sunday/Sunday/ Sunday, diabetes, CAD, CHF, hypertension was transferred from [facility] to be evaluated by vascular surgery. Patient states he was admitted to [facility] because he had low blood pressure readings at home. AV fistula has not been functioning or used for 6- 8 weeks and they have been using a permacath for dialysis. Permacath has been removed secondary to possible infection and vas cath has been placed. He has been treated with cefepime IV. Last dialysis was Sunday and 1.5 L removed. Patient has a necrotic left middle finger that patient states has been going on for the last 12 weeks. Additional Remarks Patient seen in the AM, remain confused and not answering all the question, has eyes open. Review of Systems Genitourinary Remarks Objective Data Data 11/29/17 11/30/17 18:59 06:59 Intake Total 50 ml Output Total 0 ml Balance 50 ml Intake Oral 0 ml IV Total 50 ml Output Urine Total 0 ml # Bowel Movements 0 Vital Signs Date Time Temp Pulse Resp B/P (MAP) Pulse Ox O2 Delivery O2 Flow Rate FiO2 11/29/17 15:00 98 Nasal Cannula 3.00 11/29/17 15:00 96 11/29/17 15:00 98.0 97 20 110/62 (78) 99 11/29/17 11:00 97.9 98 20 99/44 (62) 99 11/29/17 11:00 98 Nasal Cannula 3.00 11/29/17 11:00 92 11/29/17 08:25 95 Nasal Cannula 4.00 11/29/17 07:00 89 11/29/17 07:00 98.7 92 18 104/49 (67) 99 11/29/17 07:00 98 Nasal Cannula 2.00 11/29/17 03:00 98.9 91 14 107/54 (71) 98 11/29/17 03:00 91 11/29/17 03:00 97 Nasal Cannula 2.00 11/28/17 23:00 92 11/28/17 23:00 98 Nasal Cannula 3.00 11/28/17 23:00 97.9 92 14 120/63 (82) 98 11/28/17 19:00 97.9 91 14 104/53 (70) 98 11/28/17 19:00 91 11/28/17 19:00 98 Nasal Cannula 2.00 -: 11/28/17 0340 11/28/17 0340 Tubes & Lines: Perma-Cath Physical Exam General Appearance: No Acute Distress, Comfortable Eyes Eye Exam: Pupils Equal Throat Throat Exam: Oral Mucosa [place] & Moist Pulmonary Resp Exam: Breath Sounds Equal, No Distress, Decreased Bases Cardiology CV Exam: Regular Gastrointestinal/Abdomen GI Exam: Soft, Non-Tender, Bowel Sounds Present Extremeties Extremities Exam: Moderate Edema (Left arm and hand swelling.) Neurologic Neuro Exam: Alert, Awake Psychiatric Psych Exam: Appropriate Responses Assessment/Plan Discussed Condition With: Spouse Assessment Summary: End Stage Renal Disease Problem List: (1) ESRD (end stage renal disease) on dialysis ICD Codes: N18.6 - End stage renal disease; Z99.2 - Dependence on renal dialysis Plan: Dialysis MWF s/p L UE bypass 2/6 ligation of AVF and DRIL Anemia Epogen with dialysis Post Paracentesis done 11/22/17. Not in resp. distress. with nasal cannula. Encephalopathy is almost same. Has off and on confusion. HD done yesterday. Continue HD,MWF. (2) Gangrene of finger of left hand ICD Codes: I96 - Gangrene, not elsewhere classified Plan: necrotic area on left hand middle finger (3) AV fistula occlusion ICD Codes: T82.898A - Other specified complication of vascular prosthetic devices, implants and grafts, initial encounter Plan: s/p L UE bypass 2/6 ligation of AVF and DRIL (4) Diabetes mellitus ICD Codes: E11.9 - Type 2 diabetes mellitus without complications Plan: Maintain BS between 140mg/dl to 180 mg/dl Kim Santos MD Nov 29, 2017 18:47
[2017-11-29] MEDS: RESP: ALBUTEROL 2.5 MG/IPRATROPIUM 0.5 MG NEB (PRN) NEB (21:12)
[2017-11-29] MEDS ORDERED: TERBUTALINE INJ 1 MG/ML AMP SQ PRN (22:30)
[2017-11-29] MEDS ORDERED: PHENYLEPHRINE INJ 40 MG in DEXTROSE 5% IN WATE 500 ML INJ 496 ML IV PRN ×2 (22:30)
[2017-11-30] VITALS (9 sets, daily range): BP systolic 100–116; BP diastolic 54–63; PULSE 88–97; RESP 18–24; TEMP 97.6–98.9; O2SAT 24–100
[2017-11-30] MEDS: GENTAMICIN SULFATE 0.3% OPHT SOLN 5 ML BTL EACH EYE SCH ×5 (03:21→20:00)
[2017-11-30] MEDS: RESP: ALBUTEROL 2.5 MG/IPRATROPIUM 0.5 MG NEB (PRN) NEB ×4 (03:25→16:03)
[2017-11-30 04:31] LABS: AUTOMATED NEUTROPHIL # 3.5 TH/MM3 (1.8-7.7); BASOPHIL # 0.1 TH/MM3 (0-0.2); BASOPHIL % 0.8 % (0.0-2.0); EOSINOPHIL # 0.2 TH/MM3 (0-0.4); EOSINOPHIL % 2.4 % (0.0-4.0); HEMATOCRIT 26.9 % (39.0-51.0); HEMOGLOBIN 8.6 GM/DL (13.0-17.0); LYMPH % 11.3 % (9.0-44.0); LYMPHOCYTE # 0.7 TH/MM3 (1.0-4.8); MEAN CELL VOLUME 96.5 FL (80.0-100.0); MEAN CORPUSCULAR HEMOGLOBIN 30.7 PG (27.0-34.0); MEAN CORPUSCULAR HGB CONC 31.8 % (32.0-36.0); MEAN PLATELET VOLUME 9.7 FL (7.0-11.0); MONO % 29.7 % (0.0-8.0); MONOCYTE # 1.9 TH/MM3 (0-0.9); NEUT % 55.8 % (16.0-70.0); PLATELET COUNT 137 TH/MM3 (150-450); RED BLOOD COUNT 2.79 MIL/MM3 (4.50-5.90); RED CELL DISTRIBUTION WIDTH 17.7 % (11.6-17.2); WHITE BLOOD COUNT 6.4 TH/MM3 (4.0-11.0)
[2017-11-30 04:50] LABS: ALBUMIN 2.6 GM/DL (3.4-5.0); AST (GOT) 13 U/L (15-37); BICARBONATE 23.2 MEQ/L (21.0-32.0); BLOOD UREA NITROGEN 17 MG/DL (7-18); CALCIUM 8.2 MG/DL (8.5-10.1); CHLORIDE 100 MEQ/L (98-107); CREATININE 5.61 MG/DL (0.60-1.30); GLOMERULAR FILTRATION RATE 10 ML/MIN (>89); GLUCOSE,RANDOM 92 MG/DL (74-106); MAGNESIUM 2.1 MG/DL (1.5-2.5); SODIUM (NA) 139 MEQ/L (136-145)
[2017-11-30 04:58] LABS: ALKALINE PHOSPHATASE 180 U/L (45-117); ALT (GPT) 9 U/L (12-78); FREE T4 1.06 NG/DL (0.76-1.46); PHOSPHORUS 4.9 MG/DL (2.5-4.9); TOTAL BILIRUBIN ADULT 0.6 MG/DL (0.2-1.0); TOTAL PROTEIN 5.4 GM/DL (6.4-8.2)
[2017-11-30] MEDS: MIDODRINE 5 MG TAB PO SCH ×4 (05:25→21:24)
[2017-11-30] MEDS: LEVOTHYROXINE SODIUM 150 MCG TAB PO SCH (05:25)
[2017-11-30 05:26] LABS: BANDS 2 % (0-6); BASOPHILS 1 % (0-2); CORRECTED NUCLEATED RBC 1 /100 WBC (0-0); LYMPHOCYTES 11 % (9-44); MONOCYTES 22 % (0-8); NUCLEATED RED BLOOD CELL 1 (0-0); POLYS (SEG NEUTROPHILS) 61 % (16-70)
[2017-11-30 05:27] LABS: TEARDROP RBCS 1+ (NORMAL)
--- NOTE | 2017-11-30 05:38 | RADRPT ---
EXAM DATE/TIME: 11/30/2017 04:30 [facility] COMPARISON: CHEST SINGLE AP, November 28, 2017, 3:20. INDICATIONS : Evaluate for atelectasis. MEDICAL HISTORY : Myocardial infarction. Congestive heart failure. Hypothyroidism. SURGICAL HISTORY : Pacemaker. CABG. ENCOUNTER: Subsequent ACUITY: 2 weeks PAIN SCORE: Non-responsive. LOCATION: chest FINDINGS: Right IJ line is present with tip overlapping the expected region of the SVC. Left subclavian pacer w ires are present with tips in the right atrium and right ventricle.NG tube is present with tip in the stomach. Hazy opacity is seen right lung the and overall there is mild improvement in right lung bas e. Slight pulmonary edema is also suspected. CONCLUSION: Mild improvement in pulmonary edema right lung base. K. Sim Lopez MD on November 30, 2017 at 5:35 Board Certified Radiologist. This report was verified electronically.
[2017-11-30] MEDS: INSULIN ASPART SUPPLEMENTAL SCALE SQ SCH ×4 (08:00→20:45)
[2017-11-30] MEDS: ALBUMIN 25% INJ 100 ML IV PRN ×2 (08:47→08:48)
[2017-11-30] MEDS: DOCUSATE SODIUM 50 MG/SENNA 8.6 MG TAB PO SCH ×2 (08:53→20:36)
[2017-11-30] MEDS: CALCIUM ACETATE 667 MG CAP PO SCH ×3 (08:53→18:26)
[2017-11-30] MEDS: CLOPIDOGREL 75 MG TAB PO SCH (08:54)
[2017-11-30] MEDS: PANTOPRAZOLE SOD 20 MG DELAYED RELEASE TAB PO SCH (08:54)
[2017-11-30] MEDS: HEPARIN SODIUM - SQ 10,000 UNITS/ML VIAL SQ SCH ×2 (08:56→20:36)
[2017-11-30] MEDS: BACITRACIN TOP OINT 15 GM TUBE TOPICAL SCH ×2 (08:56→20:36)
[2017-11-30] MEDS: NYSTATIN 100,000 UNIT/GM CREAM 15 GM TOPICAL SCH ×2 (08:58→20:36)
[2017-11-30] MEDS: THYROID 60 MG TAB PO SCH ×3 (09:00→20:36)
[2017-11-30] MEDS: HEPARIN SODIUM - IV 10,000 UNITS/10 ML VIAL PRN (10:37)
[2017-11-30] MEDS: EPOETIN ALFA 10,000 UNITS/ML VIAL IV PUSH PRN (10:38)
[2017-11-30] MEDS: GENTAMICIN SULFATE 20 MG/2 ML VIAL OTHER PRN (10:38)
--- NOTE | 2017-11-30 12:00 | HHI.PR ---
Subjective Remarks 67-year-old male, has been at [facility] for the last 15 days, transferred to [facility] for vascular evaluation. Patient has known end-stage renal disease and gets hemodialysis every Sunday and Sunday. He had a left upper extremity AV fistula, and it had some problem, so he underwent left upper extremity access revision, left upper extremity distal revascularization and interval ligation, last August 07, 2017. He was discharged, and apparently the fistula was working okay, and during that admission also he had that left middle finger dry gangrene which was felt to be ischemic in nature due to steal syndrome. As an outpatient, his fistula apparently stopped working, so he had a permacath placed in his right IJ. Patient stated that he's had problem on and off with low blood pressure for the last 4 months. The hypotension were getting worse and he ended up getting admitted at [facility] where he stayed for at least 15 days. During that admission, he had some positive blood culture done on November 05 that grew Enterobacter cloaca. Blood culture from November 07 were negative. His permacath was removed on November 07 and the culture of that was negative. Patient underwent L UE bypass brachial-brachial and ligation of the AV fistula. Is scheduled for permacath placement tomorrow morning and remains in the ICU sedated and intubated. Subjective: 11/21: Afebrile .The patient remains intubated and sedated. Plan for permacath placement this a.m.. Will resume ventilator weaning postoperatively. 11/22: Attempted CPAP trials postoperatively yesterday, unsuccessful. Patient continues on phenylephrine currently a 60 mics/minute. Propofol discontinued Precedex infusion initiated CPAP trials are reinitiated this a.m. with plans for SBT later this morning and possible extubation. 11/23: Getting HD. Patient is awake, but very weak. On CPAP but requiring high pressure support 20. Had US guided paracentesis yesterday with 6L fluid removed- chylous. Remains on Precedex and remains on Shon-Synephrine at 60 mcg/min increased to 100 mcg/min 11/24: Remains intubated off all sedation. Requiring Shon-Synephrine at 80 mcg/ min to keep map above 65. HD with 2L removed. Left groin central line was removed and right groin hemodialysis catheter was removed yesterday 11/23/17. New right IJ central line placed yesterday 11/25: Extubated yesterday tolerating well respiratory harris. Remains on Shon- Synephrine to maintain map above 65. Cultures remain negative. Patient intermittently not cooperative with care. He is oriented 2 11/26: At around 2 AM today had episode of unresponsiveness, correlating with hypotension was hard to awake. Currently patient is awake but very lethargic voice is very soft but oriented to person and place. I will hold the Neurontin avoid all sedation currently on Shon-Synephrine at 30 mcg/min. completed hemodialysis today with 3L removed 11/27: Mentation and alertness seems to be slightly improved. TSH elevated at 8.8, increase Synthroid to 150 mcg per day. Patient is oriented to person and place. Remains very weak 11/28: Somnolent but wakes up easily, remains oriented to person. Chest x-ray unchanged. No evidence of new weakness. Discussed with Dr. Jansen 11-29 patient's been transferred to our service today. Unfortunately did not pass a swallow eval. We'll place an NG tube for tube feedings and for medications. Has some crusting around the right eye. We will try some gentamicin drops Have discussed with family and RN Physical Therapy occupational therapy and speech therapy We will ask nutrition help regarding the tube feeds 11-30 needs HIS THYROID MEDICATIONS INCREASE SYNTHROID DW RN AND PATIENT NEEDS WOUND CARE EVALUATION- NEEDS SPECIALTY BED DW RN REMAINS CONFUSED Objective Vitals Vital Signs Date Time Temp Pulse Resp B/P (MAP) Pulse Ox O2 Delivery O2 Flow Rate FiO2 11/30/17 08:17 100 Nasal Cannula 6.00 11/30/17 08:00 95 Nasal Cannula 6.00 11/30/17 08:00 97.6 95 115/56 (75) 24 11/30/17 05:15 98 Nasal Cannula 4.00 11/30/17 03:00 99 Nasal Cannula 3.00 Humidified 11/30/17 03:00 98.0 90 19 100/54 (69) 98 11/30/17 03:00 90 11/29/17 23:00 91 11/29/17 23:00 99 Nasal Cannula 3.00 Humidified 11/29/17 23:00 98.4 91 18 115/62 (79) 99 11/29/17 21:16 99 Nasal Cannula 3.00 11/29/17 19:00 91 11/29/17 19:00 98 Nasal Cannula 3.00 Humidified 11/29/17 19:00 98.4 91 19 97/64 (75) 98 11/29/17 15:00 98 Nasal Cannula 3.00 11/29/17 15:00 96 11/29/17 15:00 98.0 97 20 110/62 (78) 99 I/O 11/29/17 11/29/17 11/29/17 11/30/17 11/30/17 11/30/17 07:00 15:00 23:00 07:00 15:00 23:00 Intake Total 0 ml 50 ml Output Total 0 ml 0 ml 0 ml 2000 ml Balance 0 ml 50 ml 0 ml -2000 ml Intake Oral 0 ml 0 ml IV Total 0 ml 50 ml Output Urine Total 0 ml 0 ml 0 ml Stool Total 0 ml Hemodialysis 2000 ml # Bowel Movements 0 0 Result Diagram: 11/30/17 0417 11/30/17 0417 Other Results Laboratory Tests Test 11/27/17 13:30 11/28/17 03:40 11/30/17 04:17 11/30/17 04:51 Free Thyroxine 1.35 NG/DL 1.06 NG/DL Free Triiodothyronine (T3) pg/dL 1.57 PG/ML White Blood Count 6.2 TH/MM3 6.4 TH/MM3 Red Blood Count 2.76 MIL/MM3 2.79 MIL/MM3 Hemoglobin 8.2 GM/DL 8.6 GM/DL Hematocrit 25.8 % 26.9 % Mean Corpuscular Volume 93.6 FL 96.5 FL Mean Corpuscular Hemoglobin 29.7 PG 30.7 PG Mean Corpuscular Hemoglobin Concent 31.8 % 31.8 % Red Cell Distribution Width 17.4 % 17.7 % Platelet Count 142 TH/MM3 137 TH/MM3 Mean Platelet Volume 9.7 FL 9.7 FL CBC Comment AUTO DIFF AUTO DIFF Differential Total Cells Counted 100 100 Neutrophils % (Manual) 67 % 61 % Lymphocytes % 6 % 11 % Monocytes % 22 % 22 % Eosinophils % 3 % 3 % Neutrophils # (Manual) 4.3 TH/MM3 4.0 TH/MM3 Metamyelocytes 2 % Differential Comment FINAL DIFF MANUAL FINAL DIFF MANUAL Platelet Estimate LOW LOW Platelet Morphology Comment NORMAL NORMAL Blood Urea Nitrogen 22 MG/DL 17 MG/DL Creatinine 6.12 MG/DL 5.61 MG/DL Random Glucose 101 MG/DL 92 MG/DL Total Protein 5.2 GM/DL 5.4 GM/DL Albumin 2.5 GM/DL 2.6 GM/DL Calcium Level 8.0 MG/DL 8.2 MG/DL Alkaline Phosphatase 220 U/L 180 U/L Aspartate Amino Transf (AST/SGOT) 11 U/L 13 U/L Alanine Aminotransferase (ALT/SGPT) 6 U/L 9 U/L Total Bilirubin 0.4 MG/DL 0.6 MG/DL Sodium Level 137 MEQ/L 139 MEQ/L Potassium Level 4.2 MEQ/L 4.4 MEQ/L Chloride Level 98 MEQ/L 100 MEQ/L Carbon Dioxide Level 27.2 MEQ/L 23.2 MEQ/L Anion Gap 12 MEQ/L 16 MEQ/L Estimat Glomerular Filtration Rate 9 ML/MIN 10 ML/MIN Neutrophils (%) (Auto) 55.8 % Lymphocytes (%) (Auto) 11.3 % Monocytes (%) (Auto) 29.7 % Eosinophils (%) (Auto) 2.4 % Basophils (%) (Auto) 0.8 % Neutrophils # (Auto) 3.5 TH/MM3 Lymphocytes # (Auto) 0.7 TH/MM3 Monocytes # (Auto) 1.9 TH/MM3 Eosinophils # (Auto) 0.2 TH/MM3 Basophils # (Auto) 0.1 TH/MM3 Band Neutrophils % 2 % Basophils % 1 % Nucleated Red Blood Cells 1 /100 WBC Tear Drop Cells 1+ Phosphorus Level 4.9 MG/DL Magnesium Level 2.1 MG/DL Ammonia 21 MCMOL/L Thyroid Stimulating Hormone 3rd Gen 9.710 uIU/ML Blood Gas Puncture Site RT FEMORAL Blood Gas Patient Temperature 98.6 Blood Gas HCO3 22 mmol/L Blood Gas Base Excess -1.9 mmol/L Blood Gas Oxygen Saturation 91 % Arterial Blood pH 7.41 Arterial Blood Partial Pressure CO2 35 mmHg Arterial Blood Partial Pressure O2 60 mmHg Arterial Blood Oxygen Content 9.7 Vol % Arterial Blood Carboxyhemoglobin 1.9 % Arterial Blood Methemoglobin 0.0 % Blood Gas Hemoglobin 7.6 G/DL Oxygen Delivery Device NASAL CANNULA Blood Gas Liter Flow 3 L/M Imaging Last Impressions Chest X-Ray 11/30/17 0000 Signed Impressions: Service Date/Time: Thursday, November 30, 2017 04:30 - CONCLUSION: Mild improvement in pulmonary edema right lung base. K. Sim Lopez MD Abdomen X-Ray 11/29/17 0000 Signed Impressions: Service Date/Time: November 16:03 - CONCLUSION: NG tube tip extends into the duodenum Sami Burnett MD Head CT 11/26/17 0000 Signed Impressions: Service Date/Time: Sunday, November 26, 2017 15:27 - CONCLUSION: Negative acute process.. Meir Oden MD FACR Cyst Biopsy Asp-Paracentesis US 11/22/17 0000 Signed Impressions: Service Date/Time: November 15:20 - CONCLUSION: Uncomplicated ultrasound guided paracentesis. 6 L of chylous appearing fluid was removed. Taj Oden MD Catheter Placement X-Ray 11/21/17 1554 Signed Impressions: Service Date/Time: Tuesday, November 21, 2017 11:42 - CONCLUSION: Uncomplicated PermaCath placement as above. James Mike MD Lower Extremity Ultrasound 11/13/17 0000 Signed Impressions: Service Date/Time: Monday, November 13, 2017 07:52 - CONCLUSION: No DVT seen in either leg. Jewel Kaiser MD Hand X-Ray 11/13/17 0000 Signed Impressions: Service Date/Time: Monday, November 13, 2017 10:18 - CONCLUSION: Osteoporosis. Extensive arterial calcifications. 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 No definite evidence of bony destruction or osteomyelitis Jared Upton MD Objective Remarks GENERAL: Arousable quite lethargic at this time SKIN: Warm and dry. HEAD: Atraumatic. Normocephalic. EYES: Pupils equal and round. No scleral icterus. No injection or drainage. Crusting around both eyes ENT: No nasal bleeding or discharge. Mucous membranes pink and moist. NECK: Trachea midline. No JVD. CARDIOVASCULAR: Regular rate and rhythm. S1-S2 no S3 or S4 RESPIRATORY: No accessory muscle use. Clear to auscultation. Breath sounds equal bilaterally. Coarse breath sounds bilaterally GASTROINTESTINAL: Abdomen soft, non-tender, nondistended. Hepatic and splenic margins not palpable. MUSCULOSKELETAL: Extremities without clubbing, cyanosis, or edema. No obvious deformities. NEUROLOGICAL: Arousable. No obvious cranial nerve deficits. Motor grossly within normal limits. 4 out of 5 muscle strength in the arms and legs. ABNormal speech. PSYCHIATRIC: INAppropriate mood and affect; insight and judgment ABnormal. Procedures 11/20 Sp LUE angiogram. 11/21 permacath placement Medications and IVs Current Medications Sodium Chloride (NS Flush) 2 ml UNSCH PRN IV FLUSH FLUSH AFTER USING IV ACCESS ; Start 11/12/17 at 20:00; Stop 11/20/17 at 15:26; Status DC Sodium Chloride (NS Flush) 2 ml BID IV FLUSH Last administered on 11/29/17at 20: 18; Start 11/12/17 at 21:00 Acetaminophen (Tylenol) 650 mg Q4H PRN PO TEMP > 100.4 Last administered on 08/01at 05:32; Start 11/12/17 at 20:00 Ondansetron HCl (Zofran Inj) 4 mg Q6H PRN IVP NAUSEA OR VOMITING; Start at 20:00 Naloxone HCl (Narcan Inj) 0.4 mg UNSCH PRN IV PUSH SEE LABEL COMMENTS; Start at 20:00 Magnesium Hydroxide (Milk Of Magnesia Liq) 30 ml Q12H PRN PO Mild constipation ; Start 11/12/17 at 20:00; Stop 11/20/17 at 15:26; Status DC Sennosides (Senokot) 17.2 mg Q12H PRN PO Moderate constipation; Start 11/12/17 at 20:00 Bisacodyl (Dulcolax Supp) 10 mg DAILY PRN RECTAL SEVERE CONSITIPATION; Start at 20:00; Stop 11/20/17 at 15:26; Status DC Lactulose (Lactulose Liq) 30 ml DAILY PRN PO SEVERE CONSITIPATION; Start at 20:00; Stop 11/20/17 at 15:26; Status DC Morphine Sulfate (Morphine Inj) 2 mg Q3H PRN IV PUSH pain 1-5; Start 11/12/17 at 23:30; Stop 11/20/17 at 15:26; Status DC Morphine Sulfate (Morphine Inj) 4 mg Q3H PRN IV PUSH pain 6-10; Start 11/12/17 at 23:30; Stop 11/20/17 at 15:26; Status DC Heparin Sodium (Porcine) (Heparin Inj) 5,000 units Q8HR SQ Last administered on 11/26/17at 06:00; Start 11/13/17 at 06:00; Stop 11/26/17 at 09:04; Status DC Levothyroxine Sodium (Synthroid) 125 mcg DAILY@0600 PO Last administered on at 06:00; Start 11/13/17 at 06:00; Stop 11/27/17 at 08:41; Status DC Dextrose (D50w (Vial) Inj) 50 ml UNSCH PRN IV PUSH HYPOGLYCEMIA-SEE COMMENTS; Start 11/12/17 at 23:30 Glucagon (Glucagon Inj) 1 mg UNSCH PRN OTHER HYPOGLYCEMIA-SEE COMMENTS; Start 11/12/17 at 23:30 Insulin Aspart (NovoLOG SUPPLEMENTAL SCALE) 1 ACHS SLIDING SCALE SQ Last administered on 11/20/17at 17:00; Start 11/13/17 at 08:00 Calcium Acetate (Phoslo) 667 mg TID PO Last administered on 11/30/17at 08:53; Start 11/13/17 at 09:00 Carvedilol (Coreg) 3.125 mg DAILY PO Last administered on 11/16/17 08:24; Start 11/13/17 at 09:00; Stop 11/17/17 at 11:10; Status DC Aspirin (Ecotrin Ec) 162 mg DAILY PO Last administered on 11/29/17at 08:47; Start 11/13/17 at 09:00 Clopidogrel Bisulfate (Plavix) 75 mg DAILY PO Last administered on 11/30/17 08 :54; Start 11/13/17 at 09:00; Status Future hold Bacitracin (Baciguent Oint) 1 applic Q12HR TOPICAL Last administered on at 08:56; Start 11/13/17 at 21:00 Sodium Chloride 1,000 ml @ 0 mls/hr Q0M PRN OTHER For Prime & Rinse Back Last administered on 11/23/17at 11:30; Start 11/13/17 at 14:09 Heparin Sodium (Porcine) (Heparin Inj) 8,000 units UNSCH PRN IV FLUSH WITH DIALYSIS Last administered on 11/15/17at 15:23; Start 11/13/17 at 14:15 Sodium Chloride 1,000 ml @ 200 mls/hr Q5H PRN IV WITH DIALYSIS Last administered on 11/26/17at 07:15; Start 11/13/17 at 14:09 Sodium Chloride 1,000 ml @ 0 mls/hr Q0M PRN OTHER WITH DIALYSIS; Start at 14:09 Mannitol (Mannitol Inj) 12.5 gm UNSCH PRN IV WITH DIALYSIS Last administered on 11/17/17at 11:53; Start 11/13/17 at 14:15 Albumin Human 100 ml @ 60 mls/hr UNSCH PRN IV WITH DIALYSIS Last administered on 11/30/17at 08:48; Start 11/13/17 at 14:15 Sodium Chloride (NS Flush) 5 ml UNSCH PRN IV FLUSH WITH DIALYSIS; Start at 14:15 Heparin Sodium (Porcine) (Heparin Inj) UNSCH PRN .XX WITH DIALYSIS Last administered on 11/30/17at 10:37; Start 11/13/17 at 14:15 Gentamicin Sulfate (Gentamicin Inj) 20 mg UNSCH PRN OTHER WITH DIALYSIS Last administered on 11/30/17 10:38; Start 11/13/17 at 14:15 Ondansetron HCl (Zofran Inj) 4 mg UNSCH PRN IV PUSH WITH DIALYSIS; Start at 14:15 Acetaminophen (Tylenol) 650 mg UNSCH PRN PO for headach, pain, temp > 101F Last administered on 11/18/17at 08:40; Start 11/13/17 at 14:15 Diphenhydramine HCl (Benadryl) 25 mg UNSCH PRN PO for hives/itching/anaphylaxis ; Start 11/13/17 at 14:15 Nitroglycerin (Nitrostat Sl) 0.4 mg UNSCH PRN SL CHEST PAIN; Start 11/13/17 at 14:15 Clonidine (Catapres) 0.1 mg UNSCH PRN PO for BP > 180/100 X 2 readings; Start 11/13/17 at 14:15 Epoetin Hayden (Epogen Inj) 4,000 units UNSCH PRN IV PUSH WITH DIALYSIS Last administered on 11/30/17at 10:38; Start 11/13/17 at 14:15 Gelatin (Gelfoam 12 Mm/7 Mm Top) 1 foam UNSCH PRN TOP SEE LABEL COMMENTS; Start 11/13/17 at 14:15 Ceftriaxone Sodium 2000 mg/ Sodium Chloride 100 ml @ 200 mls/hr Q24H IV Last administered on 11/29/17at 16:00; Start 11/13/17 at 16:00 Heparin Sodium/ Sodium Chloride 1,000 ml @ As Directed STK-MED ONCE .ROUTE Last administered on 11/15/17 11:27; Start 11/15/17 at 11:27; Stop 11/15/17 at 11: 28; Status DC Midazolam HCl (Versed Inj) 2 mg STK-MED ONCE .ROUTE Last administered on at 11:36; Start 11/15/17 at 11:27; Stop 11/15/17 at 11:28; Status DC Fentanyl Citrate (fentaNYL INJ) 100 mcg STK-MED ONCE .ROUTE Last administered on 11/15/17at 11:37; Start 11/15/17 at 11:27; Stop 11/15/17 at 11:28; Status DC Heparin Sodium (Porcine) (Heparin Inj) 10,000 units STK-MED ONCE .ROUTE Last administered on 11/15/17at 11:46; Start 11/15/17 at 11:45; Stop 11/15/17 at 11:46; Status DC Iohexol (OMNIPAQUE 350 INJ ([employer]cyclopedia Research Worker)) 100 ml STK-MED ONCE OTHER ; Start at 19:16; Stop 11/15/17 at 14:06; Status DC Carvedilol (Coreg) 3.125 mg BID PO Last administered on 11/22/17at 08:37; Start 11/16/17 at 21:00; Status Future Hold Pantoprazole Sodium (Protonix) 20 mg DAILY PO Last administered on 11/30/17at 08 :54; Start 11/17/17 at 09:00 Heparin Sodium (Porcine) (Heparin Inj) 5,000 units Q12HR SQ Last administered on 11/18/17at 08:31; Start 11/16/17 at 21:00; Stop 11/25/17 at 12:00; Status DC Lactated Ringer's 1,000 ml @ 30 mls/hr Q24H PRN IV SEE LABEL COMMENTS; Start at 05:15; Stop 11/21/17 at 05:18; Status DC Sodium Chloride 500 ml @ 30 mls/hr [id number] PRN IV SEE LABEL COMMENTS; Start 11/20/17 at 05:15; Stop 11/23/17 at 05:14; Status DC Metoprolol Tartrate (Lopressor) 25 mg ENVIRONMENTAL MARKETING REPRESENTATIVE PRN PO SEE LABEL COMMENTS; Start 11/20/17 at 05:15; Stop 11/23/17 at 05:14; Status DC Povidone Iodine (Betadine 5% Antisepsis Kit) 1 applic ENVIRONMENTAL MARKETING REPRESENTATIVE PRN EACH NARE SEE LABEL COMMENTS; Start 11/20/17 at 05:15; Stop 11/23/17 at 05:14; Status DC Chlorhexidine Gluconate (Chlorhexidine 2% Cloth) 3 pack ENVIRONMENTAL MARKETING REPRESENTATIVE PRN TOPICAL SEE LABEL COMMENTS; Start 11/20/17 at 05:15; Stop 11/23/17 at 05:14; Status DC Insulin Human Regular (NovoLIN R INJ) See Protocol Table ... ENVIRONMENTAL MARKETING REPRESENTATIVE PRN SQ SEE PROTOCOL TABLE; Start 11/20/17 at 05:15; Stop 11/23/17 at 05:14; Status DC Sodium Chloride 500 ml @ 500 mls/hr BOLUS ONCE IV ; Start 11/20/17 at 10:00; Stop 11/20/17 at 16:27; Status DC Protamine Sulfate (Protamine Sulfate Inj) 100 mg STK-MED ONCE .ROUTE ; Start 11/20/17 at 10:49; Stop 11/20/17 at 10:50; Status DC Heparin Sodium (Porcine) (Heparin Inj) 10,000 units STK-MED ONCE .ROUTE ; Start 11/20/17 at 10:49; Stop 11/20/17 at 10:50; Status DC Bupivacaine HCl (Marcaine Pf 0.5% Inj) 20 ml STK-MED ONCE .ROUTE Last administered on 11/20/17at 14:30; Start 11/20/17 at 10:49; Stop 11/20/17 at 10:50; Status DC Thrombin (Thrombin Top [place]) 20,000 units STK-MED ONCE .ROUTE Last administered on 11/20/17at 10:50; Start 11/20/17 at 10:50; Stop 11/20/17 at 10:51; Status DC Heparin Sodium/ Sodium Chloride 500 ml @ As Directed STK-MED ONCE .ROUTE Last administered on 11/20/17at 10:50; Start 11/20/17 at 10:50; Stop 11/20/17 at 10:51; Status DC Cefazolin Sodium/ Dextrose 0 ml @ As Directed STK-MED ONCE .ROUTE ; Start at 10:50; Stop 11/20/17 at 10:51; Status DC Vancomycin HCl (Vancomycin Inj) 1,000 mg STK-MED ONCE .ROUTE Last administered on 11/20/17at 13:06; Start 11/20/17 at 11:39; Stop 11/20/17 at 11:40; Status DC Sodium Chloride 250 ml @ As Directed STK-MED ONCE .ROUTE ; Start 11/20/17 at 11: 39; Stop 11/20/17 at 11:40; Status DC Cisatracurium Besylate (Nimbex Inj) 20 mg STK-MED ONCE .ROUTE ; Start 11/20/17 at 12:10; Stop 11/20/17 at 12:11; Status DC Ketamine HCl (Ketalar Inj) 500 mg STK-MED ONCE .ROUTE ; Start 11/20/17 at 12:10; Stop 11/20/17 at 12:11; Status DC Bupivacaine HCl (Marcaine Pf 0.5% Inj) 30 ml STK-MED ONCE .ROUTE Last administered on 11/20/17at 13:14; Start 11/20/17 at 13:14; Stop 11/20/17 at 13:15; Status DC Iohexol 50 ml @ 0 mls/hr ONCE ONCE IV ; Start 11/20/17 at 13:53; Stop 11/20/17 at 14:17; Status DC Midodrine (Proamatine) 5 mg BID@0900,1800 PO Last administered on 11/24/17at 09: 44; Start 11/21/17 at 09:00; Stop 11/25/17 at 13:26; Status DC Cefazolin Sodium/ Dextrose 50 ml @ 100 mls/hr ENVIRONMENTAL MARKETING REPRESENTATIVE IV ; Start 11/20/17 at 14 :45; Stop 11/23/17 at 14:44; Status DC Vancomycin HCl 1000 mg/Sodium Chloride 250 ml @ 250 mls/hr ENVIRONMENTAL MARKETING REPRESENTATIVE IV Last administered on 11/21/17at 10:59; Start 11/20/17 at 14:45; Stop 11/23/17 at 14:44; Status DC Gabapentin (Neurontin) 100 mg TID PO Last administered on 11/25/17at 18:34; Start 11/20/17 at 18:00; Status Future Hold Thyroid ([place] Thyroid) 60 mg BID PO Last administered on 11/29/17at 20:18; Start 11/20/17 at 21:00 Oxycodone HCl (Roxicodone) 5 mg Q4H PRN PO PAIN SCALE 1 TO 5; Start 11/20/17 at 15:15 Hydromorphone HCl (Dilaudid) 2 mg Q4H PRN PO PAIN SCALE 6 TO 10; Start 11/20/17 at 15:15 Morphine Sulfate (Morphine Inj) 2 mg Q1H PRN IV PUSH BREAKTHROUGH PAIN; Start 11/20/17 at 15:15 Senna/Docusate Sodium (Marleny-Colace) 1 tab BID PO Last administered on at 08:53; Start 11/20/17 at 21:00 Magnesium Hydroxide (Milk Of Magnesia Liq) 30 ml Q12H PRN PO Mild constipation ; Start 11/20/17 at 15:15 Sennosides (Senokot) 17.2 mg Q12H PRN PO Moderate constipation; Start 11/20/17 at 15:15 Bisacodyl (Dulcolax Supp) 10 mg DAILY PRN RECTAL SEVERE CONSITIPATION; Start at 15:15 Lactulose (Lactulose Liq) 30 ml DAILY PRN PO SEVERE CONSITIPATION; Start at 15:15 Propofol 100 ml @ As Directed STK-MED ONCE .ROUTE ; Start 11/20/17 at 15:43; Stop 11/20/17 at 15:44; Status DC Phenylephrine HCl (Neosynephrine Inj) 40 mg STK-MED ONCE .ROUTE Last administered on 11/20/17at 15:43; Start 11/20/17 at 15:43; Stop 11/20/17 at 15:44; Status DC Fentanyl Citrate (fentaNYL INJ) 200 mcg STK-MED ONCE .ROUTE ; Start 11/20/17 at 16:18; Stop 11/20/17 at 16:19; Status DC Midazolam HCl (Versed Inj) 2 mg STK-MED ONCE .ROUTE ; Start 11/20/17 at 16:18; Stop 11/20/17 at 16:19; Status DC Propofol 100 ml @ 2.841 mls/ hr TITRATE PRN IV SEDATION Last administered on at 03:36; Start 11/20/17 at 16:00; Status Future Hold Phenylephrine HCl 40 mg/Dextrose 500 ml @ 30 mls/hr TITRATE PRN IV Blood Pressure Management Last administered on 11/26/17at 08:22; Start 11/20/17 at 16:00 ; Stop 11/27/17 at 08:43; Status DC Terbutaline Sulfate (Brethine Inj) 1 mg UNSCH PRN SQ FOR EXTRAVASATION PROTOCOL ; Start 11/20/17 at 17:30 Miscellaneous Information ALL NURSING DEPARTME... UNSCH PRN .XX SEE LABEL COMMENTS; Start 11/20/17 at 16:08; Stop 11/21/17 at 16:07; Status DC Miscellaneous Information (RASS Change Order) 1 ea ONCE ONCE XX ; Start at 16:00; Stop 11/20/17 at 17:33; Status DC Sodium Chloride (NS Flush) 5 ml UNSCH PRN IV FLUSH SEE PROTOCOL TABLE; Start at 17:45 Heparin Sodium (Porcine) (Heparin Inj) 2,000 units UNSCH PRN IV FLUSH SEE PROTOCOL TABLE; Start 11/20/17 at 17:45 Ceftriaxone Sodium (Rocephin Inj) 1,000 mg STK-MED ONCE .ROUTE ; Start 11/20/17 at 17:55; Stop 11/20/17 at 17:56; Status DC Sodium Chloride 1,000 ml @ 999 mls/hr BOLUS ONCE IV Last administered on at 05:50; Start 11/21/17 at 05:30; Stop 11/21/17 at 06:30; Status DC Albuterol/ Ipratropium (Duoneb Neb) 1 ampule Q4HR NEB PRN NEB WHEEZING Last administered on 11/30/17at 11:28; Start 11/21/17 at 08:45 Epinephrine HCl (EPINEPHrine (1:10,000) INJ) 1 mg STK-MED ONCE .ROUTE ; Start at 11:28; Stop 11/21/17 at 11:29; Status DC Heparin Sodium (Porcine) (*HEPARIN INJ Periprocedural ONLY) 10,000 units STK- MED ONCE .ROUTE Last administered on 11/21/17at 12:00; Start 11/21/17 at 12:00; Stop 11/21/17 at 12:01; Status DC Fentanyl Citrate (fentaNYL INJ) 100 mcg STK-MED ONCE .ROUTE Last administered on 11/21/17at 12:04; Start 11/21/17 at 12:04; Stop 11/21/17 at 12:05; Status DC Dexmedetomidine HCl 200 mcg/ Sodium Chloride 52 ml @ 4.94 mls/hr TITRATE PRN IV SEDATION Last administered on 11/23/17at 05:19; Start 11/22/17 at 07:00; Stop at 09:04; Status DC Albumin Human 100 ml @ 50 mls/hr NOW ONCE IV Last administered on 11/22/17at 10 :45; Start 11/22/17 at 10:45; Stop 11/22/17 at 12:44; Status DC Lidocaine HCl (Xylocaine 1% Inj) 20 ml STK-MED ONCE .ROUTE Last administered on 11/22/17at 15:31; Start 11/22/17 at 16:58; Stop 11/22/17 at 16:59; Status DC Albumin Human (Albumin 25% Inj) 25 gm ONCE ONCE IV Last administered on 17:28; Start 11/22/17 at 17:00; Stop 11/22/17 at 17:01; Status DC Albumin Human (Albumin 25% Inj) 12.5 gm ONCE ONCE IV Last administered on at 17:28; Start 11/22/17 at 17:00; Stop 11/22/17 at 17:01; Status DC Vancomycin HCl 1000 mg/Sodium Chloride 250 ml @ 250 mls/hr ONCE ONCE IV Last administered on 11/23/17at 12:45; Start 11/23/17 at 11:45; Stop 11/23/17 at 12:44; Status DC Pharmacy Profile Note 0 ml @ 0 mls/hr UNSCH OTHER ; Start 11/23/17 at 11:45; Stop 11/23/17 at 14:20; Status DC Micafungin Sodium 150 mg/Sodium Chloride 100 ml @ 100 mls/hr ONCE ONCE IV ; Start 11/23/17 at 16:00; Stop 11/23/17 at 16:03; Status DC Micafungin Sodium 150 mg/Sodium Chloride 100 ml @ 100 mls/hr ONCE ONCE IV Last administered on 11/23/17at 17:00; Start 11/23/17 at 17:00; Stop 11/23/17 at 17: 59; Status DC Nystatin (Mycostatin Cream) 1 applic Q12HR TOPICAL Last administered on at 08:58; Start 11/24/17 at 14:00 Midodrine (Proamatine) 10 mg BID@0900,1800 PO Last administered on 11/30/17at 08 :20; Start 11/25/17 at 18:00; Stop 11/30/17 at 08:29; Status DC Albuterol/ Ipratropium (Duoneb Neb) 1 ampule Q6HR NEB NEB Last administered on 11/29/17at 15:58; Start 11/25/17 at 16:00; Stop 11/29/17 at 15:59; Status DC Heparin Sodium (Porcine) (Heparin Inj) 5,000 units Q12HR SQ Last administered on 11/30/17at 08:56; Start 11/26/17 at 21:00 Sodium Chloride 250 ml @ As Directed STK-MED ONCE IV ; Start 11/20/17 at 12:00; Stop 11/26/17 at 09:49; Status DC Sodium Chloride 500 ml @ As Directed STK-MED ONCE IV ; Start 11/20/17 at 12:00; Stop 11/26/17 at 09:49; Status DC Lidocaine HCl (Xylocaine-Mpf 1% Inj) 5 ml STK-MED ONCE OTHER ; Start 11/20/17 at 12:00; Stop 11/26/17 at 09:49; Status DC Phenylephrine HCl (Neosynephrine/ NS 1000 Mcg/10ml Syr) 2,000 mcg STK-MED ONCE IV ; Start 11/20/17 at 12:00; Stop 11/26/17 at 09:49; Status DC Phenylephrine HCl (Neosynephrine Inj) 20 mg STK-MED ONCE IV ; Start 11/20/17 at 12:00; Stop 11/26/17 at 09:49; Status DC Propofol (Diprivan 200 Mg/20 ml Inj) 200 mg STK-MED ONCE IV ; Start 11/20/17 at 12:00; Stop 11/26/17 at 09:49; Status DC Sterile Water (Sterile Water For Injection) 20 ml STK-MED ONCE IV ; Start at 12:00; Stop 11/26/17 at 09:49; Status DC Sodium Chloride (Sodium Chloride 0.9% Inj) 20 ml STK-MED ONCE IV ; Start at 12:00; Stop 11/26/17 at 09:49; Status DC Levothyroxine Sodium (Synthroid) 150 mcg DAILY@0600 PO Last administered on at 05:25; Start 11/28/17 at 06:00; Stop 11/30/17 at 11:18; Status DC Acetaminophen (Tylenol) 500 mg Q6H PRN PO PAIN SCALE 1-5; Start 11/27/17 at 16: 30 Gentamicin Sulfate (Gentamicin Opht 0.3% Soln) 1 drop Q4HR EACH EYE Last administered on 11/30/17at 08:57; Start 11/29/17 at 16:00 Midodrine (Proamatine) 10 mg Q8HR PO Last administered on 11/30/17at 05:25; Start 11/30/17 at 00:00 Phenylephrine HCl 40 mg/Dextrose 500 ml @ 30 mls/hr TITRATE PRN IV Blood pressure management; Start 11/29/17 at 22:30 Terbutaline Sulfate (Brethine Inj) 1 mg UNSCH PRN SQ For Extravasation; Start 11/29/17 at 22:30 Levothyroxine Sodium (Synthroid) 200 mcg DAILY@0600 PO ; Start 12/01/17 at 06:00 A/P Problem List: (1) AV fistula occlusion ICD Code: T82.898A - Other specified complication of vascular prosthetic devices, implants and grafts, initial encounter (2) ESRD (end stage renal disease) on dialysis ICD Code: N18.6 - End stage renal disease; Z99.2 - Dependence on renal dialysis (3) Diabetes mellitus ICD Code: E11.9 - Type 2 diabetes mellitus without complications Assessment and Plan Assessment and Plan Neuro: Metabolic encephalopathy - Off all sedation - Continue PT OT speech therapy-failed swallow evaluation today keep nothing by mouth-NGT PLACED - Holding Neurontin - CT head 11/26 negative - TSH elevated, Synthroid increased. B12, ammonia normal Resp: Acute respiratory failure -resolved - Postoperative respiratory failure with failure to wean - Extubated 11/24/17 tolerating well - DuoNeb every 6 hours when necessary for wheezing - EzPAP, Acapella, IS as tolerated - ABG today due to somnolence CVS: Hypotension-resolved Bilateral upper extremity ischemia - s/p L UE bypass - plastics/hand surgery - potential L digit treatment later - Currently on Shon-Synephrine to keep map above 65. DC today off Shon-Synephrine - Midodrine 10 mg every 8 hours - Hold carvedilol due to hypotension - Continue aspirin Plavix GI: - Large-volume ascites removed 11/22/17 - f/u cultures negative to date : End-stage renal disease - Hemodialysis per nephrology - PermCath placement 11/21 Endo: Diabetes mellitus - Insulin sliding scale ID: Bacteremia Sepsis (Enterobacter bacteremia, BC 10/16) Possible left femoral line site infection - Antibiotics per ID (Rocephin) - Repeat blood culture neg to date - Single dose of Micafungin given 11/23/17 for erythema around the left central line site DVT GI prophylaxis - Teds SCDs - Subcutaneous heparin - Pepcid DCd Femoral central line and vascath 11/23/17 New RIJ central line placed 11/23-DC today Dysphagia. Failed swallow eval. Will place NG tube. Consult nutrition for help with tube feeds Conjunctivitis. Started on gentamicin drops DECUBITI- CONSULT WOUND CARE AND SPECIALTY BED Discussed with patient and RN and family Continue aggressive treatment Discharge Planning Pending improvement Patient needs to tolerate a diet which he has not been able to do Meir Schaefer DO Nov 30, 2017 11:59
[2017-11-30] MEDS: SODIUM CHLORIDE 0.9% FLUSH 10 ML FLUSH IV FLUSH SCH ×2 (13:54→20:36)
[2017-11-30] MEDS: ASPIRIN EC 81 MG TABEC PO SCH (14:50)
--- NOTE | 2017-11-30 15:40 | HHI.NPPN ---
Subjective History of Present Illness Patient is a 67-year-old male with a history of end-stage renal disease on hemodialysis Sunday/Sunday/ Sunday, diabetes, CAD, CHF, hypertension was transferred from [facility] to be evaluated by vascular surgery. Patient states he was admitted to [facility] because he had low blood pressure readings at home. AV fistula has not been functioning or used for 6- 8 weeks and they have been using a permacath for dialysis. Permacath has been removed secondary to possible infection and vas cath has been placed. He has been treated with cefepime IV. Last dialysis was Sunday and 1.5 L removed. Patient has a necrotic left middle finger that patient states has been going on for the last 12 weeks. Additional Remarks Patient continues with AMS. NG for tube feeding. (Kathleen Olguin) Review of Systems Genitourinary Remarks (Kathleen Olguin) Objective Data Data 11/30/17 12/01/17 18:59 06:59 Output Total 2000 ml Balance -2000 ml Hemodialysis 2000 ml Vital Signs Date Time Temp Pulse Resp B/P (MAP) Pulse Ox O2 Delivery O2 Flow Rate FiO2 11/30/17 12:00 97.8 97 114/62 (79) 24 11/30/17 12:00 95 Nasal Cannula 6.00 11/30/17 08:17 100 Nasal Cannula 6.00 11/30/17 08:00 95 Nasal Cannula 6.00 11/30/17 08:00 97.6 95 115/56 (75) 24 11/30/17 05:15 98 Nasal Cannula 4.00 11/30/17 03:00 99 Nasal Cannula 3.00 Humidified 11/30/17 03:00 98.0 90 19 100/54 (69) 98 11/30/17 03:00 90 11/29/17 23:00 91 11/29/17 23:00 99 Nasal Cannula 3.00 Humidified 11/29/17 23:00 98.4 91 18 115/62 (79) 99 11/29/17 21:16 99 Nasal Cannula 3.00 11/29/17 19:00 91 11/29/17 19:00 98 Nasal Cannula 3.00 Humidified 11/29/17 19:00 98.4 91 19 97/64 (75) 98 (Kathleen Olguin) -: 11/30/17 0417 11/30/17 0417 Imaging Last Impressions Chest X-Ray 11/30/17 0000 Signed Impressions: Service Date/Time: Thursday, November 30, 2017 04:30 - CONCLUSION: Mild improvement in pulmonary edema right lung base. KShireen Lopez MD Abdomen X-Ray 11/29/17 0000 Signed Impressions: Service Date/Time: November 16:03 - CONCLUSION: NG tube tip extends into the duodenum Sami Burnett MD Head CT 11/26/17 0000 Signed Impressions: Service Date/Time: Sunday, November 26, 2017 15:27 - CONCLUSION: Negative acute process.. Meir Oden MD FACR Cyst Biopsy Asp-Paracentesis US 11/22/17 0000 Signed Impressions: Service Date/Time: November 15:20 - CONCLUSION: Uncomplicated ultrasound guided paracentesis. 6 L of chylous appearing fluid was removed. Taj Oden MD Catheter Placement X-Ray 11/21/17 1554 Signed Impressions: Service Date/Time: Tuesday, November 21, 2017 11:42 - CONCLUSION: Uncomplicated PermaCath placement as above. James Mike MD Lower Extremity Ultrasound 11/13/17 0000 Signed Impressions: Service Date/Time: Monday, November 13, 2017 07:52 - CONCLUSION: No DVT seen in either leg. Jewel Kaiser MD Hand X-Ray 11/13/17 0000 Signed Impressions: Service Date/Time: Monday, November 13, 2017 10:18 - CONCLUSION: Osteoporosis. Extensive arterial calcifications. 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 No definite evidence of bony destruction or osteomyelitis Jared Upton MD Tubes & Lines: Perma-Cath (Kathleen Olguin) Physical Exam General Appearance: No Acute Distress, Comfortable (Kathleen Olguin) Eyes Eye Exam: Pupils Equal (Kathleen Olguin) Throat Throat Exam: Oral Mucosa [place] & Moist Throat Remarks NG tube (Kathleen Olguin) Pulmonary Resp Exam: Breath Sounds Equal, No Distress, Decreased Bases (Kathleen Olguin) Cardiology CV Exam: Regular (Kathleen Olguin) Gastrointestinal/Abdomen GI Exam: Soft, Non-Tender, Bowel Sounds Present (Kathleen Olguin) Integumentary Skin Remarks necrotic area on tip on left hand middle finger (Kathleen Olguin) Extremeties Extremities Exam: Moderate Edema (Left arm and hand swelling.) (Kathleen Olguin) Neurologic Neuro Exam: Stuporous (Kathleen Olguin) Assessment/Plan Discussed Condition With: Spouse Assessment Summary: End Stage Renal Disease Problem List: (1) ESRD (end stage renal disease) on dialysis ICD Codes: N18.6 - End stage renal disease; Z99.2 - Dependence on renal dialysis Plan: Dialysis MWF s/p L UE bypass 2/6 ligation of AVF and DRIL Anemia Epogen with dialysis Post Paracentesis done 11/22/17. Not in resp. distress. with nasal cannula. NG tube placed for feeding Encephalopathy is almost same. Has off and on confusion. HD done today 2 liters removed Potassium and phosphorus WNL Continue HD,MWF. (2) Gangrene of finger of left hand ICD Codes: I96 - Gangrene, not elsewhere classified Plan: necrotic area on left hand middle finger (3) AV fistula occlusion ICD Codes: T82.898A - Other specified complication of vascular prosthetic devices, implants and grafts, initial encounter Plan: s/p L UE bypass 2/6 ligation of AVF and DRIL (4) Diabetes mellitus ICD Codes: E11.9 - Type 2 diabetes mellitus without complications Plan: Maintain BS between 140mg/dl to 180 mg/dl (Kathleen Olguin) Problem List: (1) ESRD (end stage renal disease) on dialysis ICD Codes: N18.6 - End stage renal disease; Z99.2 - Dependence on renal dialysis Plan: Dialysis MWF s/p L UE bypass 2/6 ligation of AVF and DRIL Anemia Epogen with dialysis Post Paracentesis done 11/22/17. Not in resp. distress. with nasal cannula. NG tube placed for feeding Encephalopathy is almost same. Has off and on confusion. HD done today 2 liters removed Potassium and phosphorus WNL Continue HD,MWF. Patient seen and examined, agree with above. Not much improvement in Encephalopathy. (2) Gangrene of finger of left hand ICD Codes: I96 - Gangrene, not elsewhere classified Plan: necrotic area on left hand middle finger (3) AV fistula occlusion ICD Codes: T82.898A - Other specified complication of vascular prosthetic devices, implants and grafts, initial encounter Plan: s/p L UE bypass 2/6 ligation of AVF and DRIL (4) Diabetes mellitus ICD Codes: E11.9 - Type 2 diabetes mellitus without complications Plan: Maintain BS between 140mg/dl to 180 mg/dl (Kim Santos MD) Kathleen Olguin Nov 30, 2017 15:40 Kim Santos MD Nov 30, 2017 20:46
[2017-11-30] MEDS: cefTRIAXone INJ 2,000 MG in SODIUM CHLORIDE 0.9% INJ 100 ML IV SCH (15:55)
--- NOTE | 2017-11-30 15:55 | HHI.IDPN ---
Subjective Subjective Remarks Patient is a 67-year-old male, has been at [facility] for the last 15 days, transferred to [facility] for vascular evaluation. Patient has known end-stage renal disease and gets hemodialysis every Sunday and Sunday. He had a left upper extremity AV fistula, and it had some problem, so he underwent left upper extremity access revision, left upper extremity distal revascularization and interval ligation, last August 07, 2017. He was discharged, and apparently the fistula was working okay, and during that admission also he had that left middle finger dry gangrene which was felt to be ischemic in nature due to steal syndrome. As an outpatient, his fistula apparently stopped working, so he had a permacath placed in his right IJ. Patient stated that he's had problem on and off with low blood pressure for the last 4 months. The hypotension were getting worse and he ended up getting admitted at [facility] where he stayed for at least 15 days. During that admission, he had some positive blood culture done on November 05 that grew Enterobacter cloaca. Blood culture from November 07 were negative. His permacath was removed on November 07 and the culture of that was negative. Patient was apparently getting IV cefepime, and there was an infectious disease specialist monitoring him for his infection. Patient stated that he's had some reaction to the cefepime and he describes it as burning sensation. Patient is currently afebrile. There was evaluation of his AV fistula which shows thrombosis of his DRIL. He has now been transferred to [facility] for vascular evaluation. Infectious disease consultation has been requested to evaluate for sepsis. Notes reviewed Remains lethargic Had HD today Failed swallowing test today BP ok Repeat BC negative Antibiotics Current Medications Medications (Trade) Dose Ordered Sig/Renny Route Start Time Stop Time Status Last Admin (NS Flush) 2 ml BID IV FLUSH 11/12/17 21:00 11/30/17 13:54 (Tylenol) 650 mg Q4H PRN PO 11/12/17 20:00 11/24/17 05:32 (Zofran Inj) 4 mg Q6H PRN IVP 11/12/17 20:00 (Narcan Inj) 0.4 mg UNSCH PRN IV PUSH 11/12/17 20:00 (Senokot) 17.2 mg Q12H PRN PO 11/12/17 20:00 (D50w (Vial) Inj) 50 ml UNSCH PRN IV PUSH 11/12/17 23:30 (Glucagon Inj) 1 mg UNSCH PRN OTHER 11/12/17 23:30 (NovoLOG SUPPLEMENTAL SCALE) 1 ACHS SLIDING SCALE SQ 11/13/17 08:00 11/20/17 17:00 (Phoslo) 667 mg TID PO 11/13/17 09:00 11/30/17 13:56 (Ecotrin Ec) 162 mg DAILY PO 11/13/17 09:00 11/30/17 14:50 (Plavix) 75 mg DAILY PO 11/13/17 09:00 Future hold 11/30/17 08:54 (Baciguent Oint) 1 applic Q12HR TOPICAL 11/13/17 21:00 11/30/17 08:56 Sodium Chloride 1,000 ml @ 0 mls/hr Q0M PRN OTHER 11/13/17 14:09 11/23/17 11:30 (Heparin Inj) 8,000 units UNSCH PRN IV FLUSH 11/13/17 14:15 11/15/17 15:23 Sodium Chloride 1,000 ml @ 200 mls/hr Q5H PRN IV 11/13/17 14:09 11/26/17 07:15 Sodium Chloride 1,000 ml @ 0 mls/hr Q0M PRN OTHER 11/13/17 14:09 (Mannitol Inj) 12.5 gm UNSCH PRN IV 11/13/17 14:15 11/17/17 11:53 Albumin Human 100 ml @ 60 mls/hr UNSCH PRN IV 11/13/17 14:15 11/30/17 08:48 (NS Flush) 5 ml UNSCH PRN IV FLUSH 11/13/17 14:15 (Heparin Inj) UNSCH PRN .XX 11/13/17 14:15 11/30/17 10:37 (Gentamicin Inj) 20 mg UNSCH PRN OTHER 11/13/17 14:15 11/30/17 10:38 (Zofran Inj) 4 mg UNSCH PRN IV PUSH 11/13/17 14:15 (Tylenol) 650 mg UNSCH PRN PO 11/13/17 14:15 11/18/17 08:40 (Benadryl) 25 mg UNSCH PRN PO 11/13/17 14:15 (Nitrostat Sl) 0.4 mg UNSCH PRN SL 11/13/17 14:15 (Catapres) 0.1 mg UNSCH PRN PO 11/13/17 14:15 (Epogen Inj) 4,000 units UNSCH PRN IV PUSH 11/13/17 14:15 11/30/17 10:38 (Gelfoam 12 Mm/7 Mm Top) 1 foam UNSCH PRN TOP 11/13/17 14:15 Ceftriaxone Sodium 2000 mg/ Sodium Chloride 100 ml @ 200 mls/hr Q24H IV 11/13/17 16:00 11/29/17 16:00 (Coreg) 3.125 mg BID PO 11/16/17 21:00 Future Hold 11/22/17 08:37 (Protonix) 20 mg DAILY PO 11/17/17 09:00 11/30/17 08:54 (Neurontin) 100 mg TID PO 11/20/17 18:00 Future Hold 11/25/17 18:34 ([place] Thyroid) 60 mg BID PO 11/20/17 21:00 11/30/17 13:56 (Roxicodone) 5 mg Q4H PRN PO 11/20/17 15:15 (Dilaudid) 2 mg Q4H PRN PO 11/20/17 15:15 (Morphine Inj) 2 mg Q1H PRN IV PUSH 11/20/17 15:15 (Marleny-Colace) 1 tab BID PO 11/20/17 21:00 11/30/17 08:53 (Milk Of Magnesia Liq) 30 ml Q12H PRN PO 11/20/17 15:15 (Senokot) 17.2 mg Q12H PRN PO 11/20/17 15:15 (Dulcolax Supp) 10 mg DAILY PRN RECTAL 11/20/17 15:15 (Lactulose Liq) 30 ml DAILY PRN PO 11/20/17 15:15 Propofol 100 ml @ 2.841 mls/ hr TITRATE PRN IV 11/20/17 16:00 Future Hold 11/22/17 03:36 (Brethine Inj) 1 mg UNSCH PRN SQ 11/20/17 17:30 (NS Flush) 5 ml UNSCH PRN IV FLUSH 11/20/17 17:45 (Heparin Inj) 2,000 units UNSCH PRN IV FLUSH 11/20/17 17:45 (Duoneb Neb) 1 ampule Q4HR NEB PRN NEB 11/21/17 08:45 11/30/17 11:28 (Mycostatin Cream) 1 applic Q12HR TOPICAL 11/24/17 14:00 11/30/17 08:58 (Heparin Inj) 5,000 units Q12HR SQ 11/26/17 21:00 11/30/17 08:56 (Tylenol) 500 mg Q6H PRN PO 11/27/17 16:30 (Gentamicin Opht 0.3% Soln) 1 drop Q4HR EACH EYE 11/29/17 16:00 11/30/17 13:54 (Proamatine) 10 mg Q8HR PO 11/30/17 00:00 11/30/17 13:54 Phenylephrine HCl 40 mg/Dextrose 500 ml @ 30 mls/hr TITRATE PRN IV 11/29/17 22:30 (Brethine Inj) 1 mg UNSCH PRN SQ 11/29/17 22:30 (Synthroid) 200 mcg DAILY@0600 PO 12/01/17 06:00 Lines Permacath site ok. Past Medical History ESRD DM CAD HF. HTN Enlarged liver, and ascites Past Surgical History Pacemaker CABGx4 with mitral valvuloplasty in february 2005 Right fifth toe amputation Right shoulder rotator cuff repair Has had repeated paracentesis to drain his ascites Allergies: Coded Allergies: adhesive (Unverified Adverse Reaction, Severe, SKIN BREAKDOWN/ULCERS, ) Uncoded Allergies: MSG (Allergy, Intermediate, bowel problems, 08/02/17) Objective . Vital Signs Date Time Temp Pulse Resp B/P (MAP) Pulse Ox O2 Delivery O2 Flow Rate FiO2 11/30/17 12:00 97.8 97 114/62 (79) 24 11/30/17 12:00 95 Nasal Cannula 6.00 11/30/17 08:17 100 Nasal Cannula 6.00 11/30/17 08:00 95 Nasal Cannula 6.00 11/30/17 08:00 97.6 95 115/56 (75) 24 11/30/17 05:15 98 Nasal Cannula 4.00 11/30/17 03:00 99 Nasal Cannula 3.00 Humidified 11/30/17 03:00 98.0 90 19 100/54 (69) 98 11/30/17 03:00 90 11/29/17 23:00 91 11/29/17 23:00 99 Nasal Cannula 3.00 Humidified 11/29/17 23:00 98.4 91 18 115/62 (79) 99 11/29/17 21:16 99 Nasal Cannula 3.00 11/29/17 19:00 91 11/29/17 19:00 98 Nasal Cannula 3.00 Humidified 11/29/17 19:00 98.4 91 19 97/64 (75) 98 11/30/17 11/30/17 12/01/17 15:00 23:00 07:00 Output Total 2000 ml Balance -2000 ml Hemodialysis 2000 ml . Laboratory Tests Test 11/30/17 04:17 White Blood Count 6.4 TH/MM3 Red Blood Count 2.79 MIL/MM3 Hemoglobin 8.6 GM/DL Hematocrit 26.9 % Mean Corpuscular Volume 96.5 FL Mean Corpuscular Hemoglobin 30.7 PG Mean Corpuscular Hemoglobin Concent 31.8 % Red Cell Distribution Width 17.7 % Platelet Count 137 TH/MM3 Mean Platelet Volume 9.7 FL Neutrophils (%) (Auto) 55.8 % Lymphocytes (%) (Auto) 11.3 % Monocytes (%) (Auto) 29.7 % Eosinophils (%) (Auto) 2.4 % Basophils (%) (Auto) 0.8 % Neutrophils # (Auto) 3.5 TH/MM3 Lymphocytes # (Auto) 0.7 TH/MM3 Monocytes # (Auto) 1.9 TH/MM3 Eosinophils # (Auto) 0.2 TH/MM3 Basophils # (Auto) 0.1 TH/MM3 CBC Comment AUTO DIFF Differential Total Cells Counted 100 Neutrophils % (Manual) 61 % Band Neutrophils % 2 % Lymphocytes % 11 % Monocytes % 22 % Eosinophils % 3 % Basophils % 1 % Neutrophils # (Manual) 4.0 TH/MM3 Nucleated Red Blood Cells 1 /100 WBC Differential Comment FINAL DIFF MANUAL Platelet Estimate LOW Platelet Morphology Comment NORMAL Tear Drop Cells 1+ Laboratory Tests Test 11/30/17 04:17 Blood Urea Nitrogen 17 MG/DL Creatinine 5.61 MG/DL Random Glucose 92 MG/DL Total Protein 5.4 GM/DL Albumin 2.6 GM/DL Calcium Level 8.2 MG/DL Phosphorus Level 4.9 MG/DL Magnesium Level 2.1 MG/DL Alkaline Phosphatase 180 U/L Aspartate Amino Transf (AST/SGOT) 13 U/L Alanine Aminotransferase (ALT/SGPT) 9 U/L Total Bilirubin 0.6 MG/DL Sodium Level 139 MEQ/L Potassium Level 4.4 MEQ/L Chloride Level 100 MEQ/L Carbon Dioxide Level 23.2 MEQ/L Anion Gap 16 MEQ/L Estimat Glomerular Filtration Rate 10 ML/MIN Ammonia 21 MCMOL/L Free Thyroxine 1.06 NG/DL Thyroid Stimulating Hormone 3rd Gen 9.710 uIU/ML Imaging Chest X-Ray 11/28/17 0600 Signed Impressions: Service Date/Time: Tuesday, November 28, 2017 03:20 - CONCLUSION: No significant change has occurred. Billy Person MD Head CT 11/26/17 0000 Signed Impressions: Service Date/Time: Sunday, November 26, 2017 15:27 - CONCLUSION: Negative acute process.. Meir Oden MD FACR Cyst Biopsy Asp-Paracentesis US 11/22/17 0000 Signed Impressions: Service Date/Time: November 15:20 - CONCLUSION: Uncomplicated ultrasound guided paracentesis. 6 L of chylous appearing fluid was removed. Taj Oden MD Catheter Placement X-Ray 11/21/17 1554 Signed Impressions: Service Date/Time: Tuesday, November 21, 2017 11:42 - CONCLUSION: Uncomplicated PermaCath placement as above. James Mike MD Lower Extremity Ultrasound 11/13/17 0000 Signed Impressions: Service Date/Time: Monday, November 13, 2017 07:52 - CONCLUSION: No DVT seen in either leg. Jewel Kaiser MD Hand X-Ray 11/13/17 0000 Signed Impressions: Service Date/Time: Monday, November 13, 2017 10:18 - CONCLUSION: Osteoporosis. Extensive arterial calcifications. 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 No definite evidence of bony destruction or osteomyelitis Jared Upton MD Physical Exam GENERAL: Awakens easily, focusing, did not follow, NAD SKIN: Cool and dry. No rash. Edematous EYES: [place] conjunctiva. No petechia or hemorrhage. No scleral icterus. EARS, NOSE AND THROAT: NAD. NECK: Trachea midline, supple and not tender CARDIOVASCULAR: Regular rate and rhythm. Has systolic murmur over L precordium and base of the heart RESPIRATORY: Clear to auscultation. No rales, wheezing or rhonchi. Decreased at both bases ABDOMEN: Soft, and non-tender, bowel sounds present and hypoactive. No guarding. No rebound. EXTREMITIES: No clubbing, cyanosis. Has edema of both feet and UE. Dry gangrene noted. Incision LUE dry, no redness NEUROLOGICAL: lethargic LINES: No evidence of infection Assessment & Plan Remarks IMPRESSION Septic Thrombophlebitis: Enterobacter Enterobacter bacteremia, BC 11/05 (+), ?source - permacath C/S negative (?due to previous Abx) - concern with infected thrombus LUE AVF - ?other endovascular focus Thrombosis DRIL LUE AVF S/P Bypass LUE and ligation of AVF and DRIL ESRD on HD MWF Ascites, ?primary liver problem or other etiology LMF dry gangrene Encephalopathy, ?metabolic RECOMMENDATION Continue IV Rocephin ?Brain MRI Follow temps Monitor progress Follow new C/S Loraine Martinez MD Nov 30, 2017 15:55
--- NOTE | 2017-11-30 17:33 | PD.WCN.NOT ---
Wound Consult Description: Received consult from Doctor Schaefer for pressure ulcer to sacral area Communicated with: MARCELL Shaffer CVICU, MARCELL Samuels [facility]ICU and Doctor Schaefer Recommendation: 1.Please cleanse sacral wound with normal saline and pat dry. Apply skin prep to intact non blanchable purple discoloration Cover open wound with bordered gauze. Please apply skin prep to intact skin before applying adhesives to skin. Change dressing daily or PRN if saturated or dislodged. 2. Please cleanse heavy draining skin tears with normal saline and pat dry . Apply Optilock over wounds and secure with rolled gauze and tape. Change dressings every 3 days or as needed if saturated or dislodged. Additional Information: Patient seen on CVICU for evaluation of sacral pressure. Patient is laying in stretcher chair up administrative underwriter's arrival. Patient suctioned by Deena FAITH CVICU and tube feeding was paused before patient was turned with maximum assistance to L side for wound assessment. Patient noted with Deep tissue injury that appears to have opened to large partial thickness skin loss. Wound measures ~15cm x ~ 10cm x ~<0.1cm Wound is located over sacral area and extends to bilateral buttocks. Wound has uneven , but well defined wound margins. Wound etiology presents mixed with moisture, pressure and friction. Cleansed wound with normal saline and patted wound dry. Applied skin prep to intact purple discoloration from 4 to 7 o'clock. Covered open wound with bordered gauze. Skin prep was applied before dressing was secured to skin. Patient also noted with skin tear to R forearm that was becoming saturated. Ordered Optilock dressing for heavily draining skin tears from SPD.MARCELL Shaffer to apply. Patient was then repositioned for transfer to WAVE bed or pressure alternating support surface bed. Mariel was transferred with the assistance MARCELL Samuels, MARCELL Shaffer, MARCELL Perez and administrative underwriter. Patient was then positioned to R side with pillows in place for support. Heidy Bingham [facility] Nov 30, 2017 17:33
[2017-11-30 20:00] LABS: HEMOGLOBIN A1C 5.9 % (4.3-6.0)
[2017-11-30] MEDS ORDERED: EPINEPHrine HCL (1:10,000) 1 MG/10 ML SYRINGE ONE (21:46)
[2017-11-30] MEDS ORDERED: LIDOCAINE HCL 2% 100 MG/5 ML SYRINGE ONE (21:47)
[2017-11-30] MEDS ORDERED: ATROPINE SULFATE 1 MG/10 ML SYRINGE ONE (21:47)
--- NOTE | 2017-11-30 22:16 | RADRPT ---
EXAM DATE/TIME: 11/30/2017 22:05 [place] COMPARISON: CT BRAIN W/O CONTRAST, November 26, 2017, 15:27. INDICATIONS : Unequal pupils, altered mental status. RADIATION DOSE: 44.48 CTDIvol (mGy) MEDICAL HISTORY : Cardiovascular disease. Congestive heart failure. Hypertension. SURGICAL HISTORY : CABG mitral valve replacement ENCOUNTER: Initial ACUITY: 1 day PAIN SCALE: Non-responsive LOCATION: cranial TECHNIQUE: Multiple contiguous axial images were obtained of the head. Using automated exposure control and adj ustment of the mA and/or kV according to patient size, radiation dose was kept as low as reasonably a chievable to obtain optimal diagnostic quality images. DICOM format image data is available electro nically for review and comparison. FINDINGS: CEREBRUM: The ventricles are normal for age. No evidence of midline shift, mass lesion, hemorrhage or acute in farction. No extra-axial fluid collections are seen. POSTERIOR FOSSA: The cerebellum and brainstem are intact. The 4th ventricle is midline. The cerebellopontine angle i s unremarkable. EXTRACRANIAL: The visualized portion of the orbits is intact. SKULL: The calvaria is intact. No evidence of skull fracture. CONCLUSION: 1. No acute findings. No significant change. Uzair Berrios MD on November 30, 2017 at 22:13 Board Certified Radiologist. This report was verified electronically.
[2017-12-01] VITALS (9 sets, daily range): BP systolic 91–109; BP diastolic 47–60; PULSE 69–89; RESP 18–20; TEMP 97.6–98.5; O2SAT 97–99
[2017-12-01] MEDS: GENTAMICIN SULFATE 0.3% OPHT SOLN 5 ML BTL EACH EYE SCH ×6 (04:00→20:00)
[2017-12-01 04:53] LABS: HEMATOCRIT 27.1 % (39.0-51.0); HEMOGLOBIN 8.4 GM/DL (13.0-17.0); MEAN CELL VOLUME 97.5 FL (80.0-100.0); MEAN CORPUSCULAR HEMOGLOBIN 30.3 PG (27.0-34.0); MEAN CORPUSCULAR HGB CONC 31.1 % (32.0-36.0); MEAN PLATELET VOLUME 10.2 FL (7.0-11.0); PLATELET COUNT 159 TH/MM3 (150-450); RED BLOOD COUNT 2.78 MIL/MM3 (4.50-5.90); RED CELL DISTRIBUTION WIDTH 17.7 % (11.6-17.2); WHITE BLOOD COUNT 10.6 TH/MM3 (4.0-11.0)
[2017-12-01 05:23] LABS: AST (GOT) 9 U/L (15-37); BICARBONATE 23.6 MEQ/L (21.0-32.0); BLOOD UREA NITROGEN 13 MG/DL (7-18); CALCIUM 8.8 MG/DL (8.5-10.1); CHLORIDE 99 MEQ/L (98-107); CREATININE 4.32 MG/DL (0.60-1.30); GLOMERULAR FILTRATION RATE 14 ML/MIN (>89); GLUCOSE,RANDOM 114 MG/DL (74-106); MAGNESIUM 2.2 MG/DL (1.5-2.5); SODIUM (NA) 140 MEQ/L (136-145)
[2017-12-01 05:29] LABS: ALKALINE PHOSPHATASE 156 U/L (45-117); ALT (GPT) LESS THAN 6 U/L (12-78); PHOSPHORUS 3.9 MG/DL (2.5-4.9); TOTAL BILIRUBIN ADULT 0.6 MG/DL (0.2-1.0); TOTAL PROTEIN 5.5 GM/DL (6.4-8.2)
[2017-12-01] MEDS: LEVOTHYROXINE SODIUM 200 MCG TAB PO SCH (05:30)
[2017-12-01] MEDS: MIDODRINE 5 MG TAB PO SCH ×3 (05:30→21:18)
[2017-12-01] MEDS: RESP: ALBUTEROL 2.5 MG/IPRATROPIUM 0.5 MG NEB (PRN) NEB (07:54)
[2017-12-01] MEDS: INSULIN ASPART SUPPLEMENTAL SCALE SQ SCH ×3 (08:00→17:00)
[2017-12-01 08:54] LABS: BANDS 27 % (0-6); LYMPHOCYTES 5 % (9-44); MONOCYTES 23 % (0-8); NEUTROPHIL # MANUAL DIFF 7.6 TH/MM3 (1.8-7.7); POLYS (SEG NEUTROPHILS) 45 % (16-70)
[2017-12-01] MEDS: BACITRACIN TOP OINT 15 GM TUBE TOPICAL SCH ×2 (09:24→21:19)
[2017-12-01] MEDS: CALCIUM ACETATE 667 MG CAP PO SCH ×3 (09:25→17:11)
[2017-12-01] MEDS: HEPARIN SODIUM - SQ 10,000 UNITS/ML VIAL SQ SCH ×2 (09:25→21:18)
[2017-12-01] MEDS: PANTOPRAZOLE SOD 20 MG DELAYED RELEASE TAB PO SCH (09:26)
[2017-12-01] MEDS: CLOPIDOGREL 75 MG TAB PO SCH (09:26)
[2017-12-01] MEDS: ASPIRIN EC 81 MG TABEC PO SCH (09:26)
[2017-12-01] MEDS: DOCUSATE SODIUM 50 MG/SENNA 8.6 MG TAB PO SCH ×2 (09:26→21:18)
[2017-12-01] MEDS: THYROID 60 MG TAB PO SCH ×2 (09:26→21:18)
--- NOTE | 2017-12-01 12:22 | PD.VS.PN ---
Subjective Procedure(s): L brachial-brachial bypass, ligation of AVF Subjective/Hospital Course more alert responds to complex questions and knows me by name Objective Vitals/I&O Date Time Temp Pulse Resp B/P (MAP) Pulse Ox O2 Delivery O2 Flow Rate FiO2 12/01/17 08:00 98 Nasal Cannula 5.00 12/01/17 08:00 98.5 84 18 105/57 (73) 98 12/01/17 07:47 99 Nasal Cannula 7.00 12/01/17 03:00 98.2 89 19 107/53 (71) 99 12/01/17 03:00 99 Nasal Cannula 6.00 Humidified 12/01/17 03:00 89 11/30/17 23:00 91 11/30/17 23:00 99 Nasal Cannula 6.00 Humidified 11/30/17 23:00 98.4 88 19 116/62 (80) 99 11/30/17 21:21 99 Nasal Cannula 5.00 11/30/17 19:00 96 Nasal Cannula 6.00 Humidified 11/30/17 19:00 91 11/30/17 19:00 98.9 90 18 113/63 (80) 97 11/30/17 16:00 95 Nasal Cannula 6.00 11/30/17 16:00 98.2 91 24 114/56 (75) 24 12/01/17 12/01/17 12/01/17 07:00 15:00 23:00 Intake Total 93 ml Output Total 0 ml Balance 93 ml Exam: L UE incision intact, less edema Strong radial, ulnar, palmar arch signals stable tissue loss Laboratory Laboratory Tests Test 12/01/17 04:25 White Blood Count 10.6 Red Blood Count 2.78 Hemoglobin 8.4 Hematocrit 27.1 Mean Corpuscular Volume 97.5 Mean Corpuscular Hemoglobin 30.3 Mean Corpuscular Hemoglobin Concent 31.1 Red Cell Distribution Width 17.7 Platelet Count 159 Mean Platelet Volume 10.2 CBC Comment AUTO DIFF Differential Total Cells Counted 100 Neutrophils % (Manual) 45 Band Neutrophils % 27 Lymphocytes % 5 Monocytes % 23 Neutrophils # (Manual) 7.6 Differential Comment AUTO DIFF CONFIRMED Platelet Estimate NORMAL Platelet Morphology Comment ENLARGED Blood Urea Nitrogen 13 Creatinine 4.32 Random Glucose 114 Total Protein 5.5 Albumin 3.0 Calcium Level 8.8 Phosphorus Level 3.9 Magnesium Level 2.2 Alkaline Phosphatase 156 Aspartate Amino Transf (AST/SGOT) 9 Alanine Aminotransferase (ALT/SGPT) LESS THAN 6 Total Bilirubin 0.6 Sodium Level 140 Potassium Level 4.0 Chloride Level 99 Carbon Dioxide Level 23.6 Anion Gap 17 Estimat Glomerular Filtration Rate 14 Date/Time Source Procedure Growth Status 11/24/17 04:13 Blood Peripheral Blood Fungal Culture Pending Received 11/24/17 04:13 Blood Peripheral Blood Fungal Culture Pending Received 11/22/17 15:38 Fluid Peritoneal Fluid Gram Stain - Final Complete 11/22/17 15:38 Fluid Peritoneal Fluid Body Fluid Culture - Final NO GROWTH IN 72 HRS.--AEROBICALLY OR ... Complete 11/23/17 17:40 Catheter Tip Central Venous Line Fungal Culture - Final Complete Assessment and Plan Plan S/p L UE bypass, access ligation UE warm and bypass patent by exam Plan 1. Continue pulse checks 2. Enteral feeds and PT 3. Reconsult plastics/hand for digit amputation Discharge Planning Anytime from a vascular surgery standpoint but clearly many other issues (ID, mental status, cardiac, renal) Issa Jansen MD Dec 01, 2017 12:22
[2017-12-01] MEDS: SODIUM CHLORIDE 0.9% FLUSH 10 ML FLUSH IV FLUSH SCH ×2 (12:29→21:20)
[2017-12-01] MEDS: NYSTATIN 100,000 UNIT/GM CREAM 15 GM TOPICAL SCH ×2 (12:30→21:18)
--- NOTE | 2017-12-01 12:59 | HHI.PR ---
Subjective Remarks 67-year-old male, has been at [facility] for the last 15 days, transferred to [facility] for vascular evaluation. Patient has known end-stage renal disease and gets hemodialysis every Sunday and Sunday. He had a left upper extremity AV fistula, and it had some problem, so he underwent left upper extremity access revision, left upper extremity distal revascularization and interval ligation, last August 07, 2017. He was discharged, and apparently the fistula was working okay, and during that admission also he had that left middle finger dry gangrene which was felt to be ischemic in nature due to steal syndrome. As an outpatient, his fistula apparently stopped working, so he had a permacath placed in his right IJ. Patient stated that he's had problem on and off with low blood pressure for the last 4 months. The hypotension were getting worse and he ended up getting admitted at [facility] where he stayed for at least 15 days. During that admission, he had some positive blood culture done on November 05 that grew Enterobacter cloaca. Blood culture from November 07 were negative. His permacath was removed on November 07 and the culture of that was negative. Patient underwent L UE bypass brachial-brachial and ligation of the AV fistula. Is scheduled for permacath placement tomorrow morning and remains in the ICU sedated and intubated. Subjective: 11/21: Afebrile .The patient remains intubated and sedated. Plan for permacath placement this a.m.. Will resume ventilator weaning postoperatively. 11/22: Attempted CPAP trials postoperatively yesterday, unsuccessful. Patient continues on phenylephrine currently a 60 mics/minute. Propofol discontinued Precedex infusion initiated CPAP trials are reinitiated this a.m. with plans for SBT later this morning and possible extubation. 11/23: Getting HD. Patient is awake, but very weak. On CPAP but requiring high pressure support 20. Had US guided paracentesis yesterday with 6L fluid removed- chylous. Remains on Precedex and remains on Shon-Synephrine at 60 mcg/min increased to 100 mcg/min 11/24: Remains intubated off all sedation. Requiring Shon-Synephrine at 80 mcg/ min to keep map above 65. HD with 2L removed. Left groin central line was removed and right groin hemodialysis catheter was removed yesterday 11/23/17. New right IJ central line placed yesterday 11/25: Extubated yesterday tolerating well respiratory harris. Remains on Shon- Synephrine to maintain map above 65. Cultures remain negative. Patient intermittently not cooperative with care. He is oriented 2 11/26: At around 2 AM today had episode of unresponsiveness, correlating with hypotension was hard to awake. Currently patient is awake but very lethargic voice is very soft but oriented to person and place. I will hold the Neurontin avoid all sedation currently on Shon-Synephrine at 30 mcg/min. completed hemodialysis today with 3L removed 11/27: Mentation and alertness seems to be slightly improved. TSH elevated at 8.8, increase Synthroid to 150 mcg per day. Patient is oriented to person and place. Remains very weak 11/28: Somnolent but wakes up easily, remains oriented to person. Chest x-ray unchanged. No evidence of new weakness. Discussed with Dr. Jansen 11-29 patient's been transferred to our service today. Unfortunately did not pass a swallow eval. We'll place an NG tube for tube feedings and for medications. Has some crusting around the right eye. We will try some gentamicin drops Have discussed with family and RN Physical Therapy occupational therapy and speech therapy We will ask nutrition help regarding the tube feeds - needs HIS THYROID MEDICATIONS INCREASE SYNTHROID DW RN AND PATIENT NEEDS WOUND CARE EVALUATION- NEEDS SPECIALTY BED DW RN REMAINS CONFUSED - STARTING TO WAKE UP TODAY- MORE INTERACTIVE- TRYING TO SPEAK, FOLLOWS SOME COMMANDS DW RN AND PT AND FAMILY AM LABS Objective Vitals Vital Signs Date Time Temp Pulse Resp B/P (MAP) Pulse Ox O2 Delivery O2 Flow Rate FiO2 12/01/17 08:00 98 Nasal Cannula 5.00 12/01/17 08:00 98.5 84 18 105/57 (73) 98 12/01/17 07:47 99 Nasal Cannula 7.00 12/01/17 03:00 98.2 89 19 107/53 (71) 99 12/01/17 03:00 99 Nasal Cannula 6.00 Humidified 12/01/17 03:00 89 11/30/17 23:00 91 11/30/17 23:00 99 Nasal Cannula 6.00 Humidified 11/30/17 23:00 98.4 88 19 116/62 (80) 99 11/30/17 21:21 99 Nasal Cannula 5.00 11/30/17 19:00 96 Nasal Cannula 6.00 Humidified 11/30/17 19:00 91 11/30/17 19:00 98.9 90 18 113/63 (80) 97 11/30/17 16:00 95 Nasal Cannula 6.00 11/30/17 16:00 98.2 91 24 114/56 (75) 24 I/O 11/30/17 11/30/17 11/30/17 12/01/17 12/01/17 12/01/17 07:00 15:00 23:00 07:00 15:00 23:00 Intake Total 20 ml 93 ml Output Total 0 ml 2000 ml 0 ml 0 ml Balance 0 ml -2000 ml 20 ml 93 ml Intake Oral 0 ml Tube Feeding 20 ml 93 ml Output Urine Total 0 ml 0 ml Tube Feeding Residual Discard 0 ml Hemodialysis 2000 ml # Bowel Movements 0 0 Result Diagram: 12/01/17 0425 12/01/17 0425 Other Results Laboratory Tests Test 11/30/17 04:17 11/30/17 04:51 12/01/17 04:25 White Blood Count 6.4 TH/MM3 10.6 TH/MM3 Red Blood Count 2.79 MIL/MM3 2.78 MIL/MM3 Hemoglobin 8.6 GM/DL 8.4 GM/DL Hematocrit 26.9 % 27.1 % Mean Corpuscular Volume 96.5 FL 97.5 FL Mean Corpuscular Hemoglobin 30.7 PG 30.3 PG Mean Corpuscular Hemoglobin Concent 31.8 % 31.1 % Red Cell Distribution Width 17.7 % 17.7 % Platelet Count 137 TH/MM3 159 TH/MM3 Mean Platelet Volume 9.7 FL 10.2 FL Neutrophils (%) (Auto) 55.8 % Lymphocytes (%) (Auto) 11.3 % Monocytes (%) (Auto) 29.7 % Eosinophils (%) (Auto) 2.4 % Basophils (%) (Auto) 0.8 % Neutrophils # (Auto) 3.5 TH/MM3 Lymphocytes # (Auto) 0.7 TH/MM3 Monocytes # (Auto) 1.9 TH/MM3 Eosinophils # (Auto) 0.2 TH/MM3 Basophils # (Auto) 0.1 TH/MM3 CBC Comment AUTO DIFF AUTO DIFF Differential Total Cells Counted 100 100 Neutrophils % (Manual) 61 % 45 % Band Neutrophils % 2 % 27 % Lymphocytes % 11 % 5 % Monocytes % 22 % 23 % Eosinophils % 3 % Basophils % 1 % Neutrophils # (Manual) 4.0 TH/MM3 7.6 TH/MM3 Nucleated Red Blood Cells 1 /100 WBC Differential Comment FINAL DIFF MANUAL AUTO DIFF CONFIRMED Platelet Estimate LOW NORMAL Platelet Morphology Comment NORMAL ENLARGED Tear Drop Cells 1+ Blood Urea Nitrogen 17 MG/DL 13 MG/DL Creatinine 5.61 MG/DL 4.32 MG/DL Random Glucose 92 MG/DL 114 MG/DL Total Protein 5.4 GM/DL 5.5 GM/DL Albumin 2.6 GM/DL 3.0 GM/DL Calcium Level 8.2 MG/DL 8.8 MG/DL Phosphorus Level 4.9 MG/DL 3.9 MG/DL Magnesium Level 2.1 MG/DL 2.2 MG/DL Alkaline Phosphatase 180 U/L 156 U/L Aspartate Amino Transf (AST/SGOT) 13 U/L 9 U/L Alanine Aminotransferase (ALT/SGPT) 9 U/L LESS THAN 6 U/L Total Bilirubin 0.6 MG/DL 0.6 MG/DL Sodium Level 139 MEQ/L 140 MEQ/L Potassium Level 4.4 MEQ/L 4.0 MEQ/L Chloride Level 100 MEQ/L 99 MEQ/L Carbon Dioxide Level 23.2 MEQ/L 23.6 MEQ/L Anion Gap 16 MEQ/L 17 MEQ/L Estimat Glomerular Filtration Rate 10 ML/MIN 14 ML/MIN Hemoglobin A1c 5.9 % Ammonia 21 MCMOL/L Free Thyroxine 1.06 NG/DL Thyroid Stimulating Hormone 3rd Gen 9.710 uIU/ML Blood Gas Puncture Site RT FEMORAL Blood Gas Patient Temperature 98.6 Blood Gas HCO3 22 mmol/L Blood Gas Base Excess -1.9 mmol/L Blood Gas Oxygen Saturation 91 % Arterial Blood pH 7.41 Arterial Blood Partial Pressure CO2 35 mmHg Arterial Blood Partial Pressure O2 60 mmHg Arterial Blood Oxygen Content 9.7 Vol % Arterial Blood Carboxyhemoglobin 1.9 % Arterial Blood Methemoglobin 0.0 % Blood Gas Hemoglobin 7.6 G/DL Oxygen Delivery Device NASAL CANNULA Blood Gas Liter Flow 3 L/M Imaging Last Impressions Head CT 11/30/17 0000 Signed Impressions: Service Date/Time: Thursday, November 30, 2017 22:05 - CONCLUSION: 1. No acute findings. No significant change. Uzair Berrios MD Chest X-Ray 11/30/17 0000 Signed Impressions: Service Date/Time: Thursday, November 30, 2017 04:30 - CONCLUSION: Mild improvement in pulmonary edema right lung base. K. Sim Lopez MD Abdomen X-Ray 11/29/17 0000 Signed Impressions: Service Date/Time: November 16:03 - CONCLUSION: NG tube tip extends into the duodenum Sami Burnett MD Cyst Biopsy Asp-Paracentesis US 11/22/17 0000 Signed Impressions: Service Date/Time: November 15:20 - CONCLUSION: Uncomplicated ultrasound guided paracentesis. 6 L of chylous appearing fluid was removed. Taj Oden MD Catheter Placement X-Ray 11/21/17 1554 Signed Impressions: Service Date/Time: Tuesday, November 21, 2017 11:42 - CONCLUSION: Uncomplicated PermaCath placement as above. James Mike MD Lower Extremity Ultrasound 11/13/17 0000 Signed Impressions: Service Date/Time: Monday, November 13, 2017 07:52 - CONCLUSION: No DVT seen in either leg. Jewel Kaiser MD Hand X-Ray 11/13/17 0000 Signed Impressions: Service Date/Time: Monday, November 13, 2017 10:18 - CONCLUSION: Osteoporosis. Extensive arterial calcifications. 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 No definite evidence of bony destruction or osteomyelitis Jared Upton MD Objective Remarks GENERAL: Arousable LESS lethargic at this time MORE INTERACTIVE SKIN: Warm and dry. HEAD: Atraumatic. Normocephalic. EYES: Pupils equal and round. No scleral icterus. No injection or drainage. Crusting around both eyes ENT: No nasal bleeding or discharge. Mucous membranes pink and moist. NECK: Trachea midline. No JVD. CARDIOVASCULAR: Regular rate and rhythm. S1-S2 no S3 or S4 RESPIRATORY: No accessory muscle use. Clear to auscultation. Breath sounds equal bilaterally. Coarse breath sounds bilaterally GASTROINTESTINAL: Abdomen soft, non-tender, nondistended. Hepatic and splenic margins not palpable. MUSCULOSKELETAL: Extremities without clubbing, cyanosis, or edema. No obvious deformities. NEUROLOGICAL: Arousable. No obvious cranial nerve deficits. Motor grossly within normal limits. 4 out of 5 muscle strength in the arms and legs. ABNormal speech. PSYCHIATRIC: INAppropriate mood and affect; insight and judgment ABnormal. Procedures 11/20 Sp LUE angiogram. 11/21 permacath placement Medications and IVs Current Medications Sodium Chloride (NS Flush) 2 ml UNSCH PRN IV FLUSH FLUSH AFTER USING IV ACCESS ; Start 11/12/17 at 20:00; Stop 11/20/17 at 15:26; Status DC Sodium Chloride (NS Flush) 2 ml BID IV FLUSH Last administered on 12/01/17at 12: 29; Start 11/12/17 at 21:00 Acetaminophen (Tylenol) 650 mg Q4H PRN PO TEMP > 100.4 Last administered on 08/01at 05:32; Start 11/12/17 at 20:00 Ondansetron HCl (Zofran Inj) 4 mg Q6H PRN IVP NAUSEA OR VOMITING; Start at 20:00 Naloxone HCl (Narcan Inj) 0.4 mg UNSCH PRN IV PUSH SEE LABEL COMMENTS; Start at 20:00 Magnesium Hydroxide (Milk Of Magnesia Liq) 30 ml Q12H PRN PO Mild constipation ; Start 11/12/17 at 20:00; Stop 11/20/17 at 15:26; Status DC Sennosides (Senokot) 17.2 mg Q12H PRN PO Moderate constipation; Start 11/12/17 at 20:00 Bisacodyl (Dulcolax Supp) 10 mg DAILY PRN RECTAL SEVERE CONSITIPATION; Start at 20:00; Stop 11/20/17 at 15:26; Status DC Lactulose (Lactulose Liq) 30 ml DAILY PRN PO SEVERE CONSITIPATION; Start at 20:00; Stop 11/20/17 at 15:26; Status DC Morphine Sulfate (Morphine Inj) 2 mg Q3H PRN IV PUSH pain 1-5; Start 11/12/17 at 23:30; Stop 11/20/17 at 15:26; Status DC Morphine Sulfate (Morphine Inj) 4 mg Q3H PRN IV PUSH pain 6-10; Start 11/12/17 at 23:30; Stop 11/20/17 at 15:26; Status DC Heparin Sodium (Porcine) (Heparin Inj) 5,000 units Q8HR SQ Last administered on 11/26/17 06:00; Start 11/13/17 at 06:00; Stop 11/26/17 at 09:04; Status DC Levothyroxine Sodium (Synthroid) 125 mcg DAILY@0600 PO Last administered on at 06:00; Start 11/13/17 at 06:00; Stop 11/27/17 at 08:41; Status DC Dextrose (D50w (Vial) Inj) 50 ml UNSCH PRN IV PUSH HYPOGLYCEMIA-SEE COMMENTS; Start 11/12/17 at 23:30 Glucagon (Glucagon Inj) 1 mg UNSCH PRN OTHER HYPOGLYCEMIA-SEE COMMENTS; Start 11/12/17 at 23:30 Insulin Aspart (NovoLOG SUPPLEMENTAL SCALE) 1 ACHS SLIDING SCALE SQ Last administered on 11/20/17at 17:00; Start 11/13/17 at 08:00 Calcium Acetate (Phoslo) 667 mg TID PO Last administered on 12/01/17 12:29; Start 11/13/17 at 09:00 Carvedilol (Coreg) 3.125 mg DAILY PO Last administered on 11/16/17 08:24; Start 11/13/17 at 09:00; Stop 11/17/17 at 11:10; Status DC Aspirin (Ecotrin Ec) 162 mg DAILY PO Last administered on 12/01/17 09:26; Start 11/13/17 at 09:00 Clopidogrel Bisulfate (Plavix) 75 mg DAILY PO Last administered on 12/01/17 09 :26; Start 11/13/17 at 09:00; Status Future hold Bacitracin (Baciguent Oint) 1 applic Q12HR TOPICAL Last administered on at 09:24; Start 11/13/17 at 21:00 Sodium Chloride 1,000 ml @ 0 mls/hr Q0M PRN OTHER For Prime & Rinse Back Last administered on 11/23/17 11:30; Start 11/13/17 at 14:09 Heparin Sodium (Porcine) (Heparin Inj) 8,000 units UNSCH PRN IV FLUSH WITH DIALYSIS Last administered on 11/15/17 15:23; Start 11/13/17 at 14:15 Sodium Chloride 1,000 ml @ 200 mls/hr Q5H PRN IV WITH DIALYSIS Last administered on 11/26/17 07:15; Start 11/13/17 at 14:09 Sodium Chloride 1,000 ml @ 0 mls/hr Q0M PRN OTHER WITH DIALYSIS; Start at 14:09 Mannitol (Mannitol Inj) 12.5 gm UNSCH PRN IV WITH DIALYSIS Last administered on 11/17/17 11:53; Start 11/13/17 at 14:15 Albumin Human 100 ml @ 60 mls/hr UNSCH PRN IV WITH DIALYSIS Last administered on 11/30/17 08:48; Start 11/13/17 at 14:15 Sodium Chloride (NS Flush) 5 ml UNSCH PRN IV FLUSH WITH DIALYSIS; Start at 14:15 Heparin Sodium (Porcine) (Heparin Inj) UNSCH PRN .XX WITH DIALYSIS Last administered on 11/30/17 10:37; Start 11/13/17 at 14:15 Gentamicin Sulfate (Gentamicin Inj) 20 mg UNSCH PRN OTHER WITH DIALYSIS Last administered on 11/30/17 10:38; Start 11/13/17 at 14:15 Ondansetron HCl (Zofran Inj) 4 mg UNSCH PRN IV PUSH WITH DIALYSIS; Start at 14:15 Acetaminophen (Tylenol) 650 mg UNSCH PRN PO for headach, pain, temp > 101F Last administered on 11/18/17 08:40; Start 11/13/17 at 14:15 Diphenhydramine HCl (Benadryl) 25 mg UNSCH PRN PO for hives/itching/anaphylaxis ; Start 11/13/17 at 14:15 Nitroglycerin (Nitrostat Sl) 0.4 mg UNSCH PRN SL CHEST PAIN; Start 11/13/17 at 14:15 Clonidine (Catapres) 0.1 mg UNSCH PRN PO for BP > 180/100 X 2 readings; Start 11/13/17 at 14:15 Epoetin Hayden (Epogen Inj) 4,000 units UNSCH PRN IV PUSH WITH DIALYSIS Last administered on 11/30/17 10:38; Start 11/13/17 at 14:15 Gelatin (Gelfoam 12 Mm/7 Mm Top) 1 foam UNSCH PRN TOP SEE LABEL COMMENTS; Start 11/13/17 at 14:15 Ceftriaxone Sodium 2000 mg/ Sodium Chloride 100 ml @ 200 mls/hr Q24H IV Last administered on 11/30/17at 15:55; Start 11/13/17 at 16:00 Heparin Sodium/ Sodium Chloride 1,000 ml @ As Directed STK-MED ONCE .ROUTE Last administered on 11/15/17at 11:27; Start 11/15/17 at 11:27; Stop 11/15/17 at 11: 28; Status DC Midazolam HCl (Versed Inj) 2 mg STK-MED ONCE .ROUTE Last administered on at 11:36; Start 11/15/17 at 11:27; Stop 11/15/17 at 11:28; Status DC Fentanyl Citrate (fentaNYL INJ) 100 mcg STK-MED ONCE .ROUTE Last administered on 11/15/17at 11:37; Start 11/15/17 at 11:27; Stop 11/15/17 at 11:28; Status DC Heparin Sodium (Porcine) (Heparin Inj) 10,000 units STK-MED ONCE .ROUTE Last administered on 11/15/17at 11:46; Start 11/15/17 at 11:45; Stop 11/15/17 at 11:46; Status DC Iohexol (OMNIPAQUE 350 INJ (Cataloging Assistant)) 100 ml STK-MED ONCE OTHER ; Start at 19:16; Stop 11/15/17 at 14:06; Status DC Carvedilol (Coreg) 3.125 mg BID PO Last administered on 11/22/17at 08:37; Start 11/16/17 at 21:00; Status Future Hold Pantoprazole Sodium (Protonix) 20 mg DAILY PO Last administered on 12/01/17at 09 :26; Start 11/17/17 at 09:00 Heparin Sodium (Porcine) (Heparin Inj) 5,000 units Q12HR SQ Last administered on 11/18/17at 08:31; Start 11/16/17 at 21:00; Stop 11/25/17 at 12:00; Status DC Lactated Ringer's 1,000 ml @ 30 mls/hr Q24H PRN IV SEE LABEL COMMENTS; Start at 05:15; Stop 11/21/17 at 05:18; Status DC Sodium Chloride 500 ml @ 30 mls/hr [id number] PRN IV SEE LABEL COMMENTS; Start 11/20/17 at 05:15; Stop 11/23/17 at 05:14; Status DC Metoprolol Tartrate (Lopressor) 25 mg GAUNTLET PAIRER PRN PO SEE LABEL COMMENTS; Start 11/20/17 at 05:15; Stop 11/23/17 at 05:14; Status DC Povidone Iodine (Betadine 5% Antisepsis Kit) 1 applic GAUNTLET PAIRER PRN EACH NARE SEE LABEL COMMENTS; Start 11/20/17 at 05:15; Stop 11/23/17 at 05:14; Status DC Chlorhexidine Gluconate (Chlorhexidine 2% Cloth) 3 pack GAUNTLET PAIRER PRN TOPICAL SEE LABEL COMMENTS; Start 11/20/17 at 05:15; Stop 11/23/17 at 05:14; Status DC Insulin Human Regular (NovoLIN R INJ) See Protocol Table ... GAUNTLET PAIRER PRN SQ SEE PROTOCOL TABLE; Start 11/20/17 at 05:15; Stop 11/23/17 at 05:14; Status DC Sodium Chloride 500 ml @ 500 mls/hr BOLUS ONCE IV ; Start 11/20/17 at 10:00; Stop 11/20/17 at 16:27; Status DC Protamine Sulfate (Protamine Sulfate Inj) 100 mg STK-MED ONCE .ROUTE ; Start 11/20/17 at 10:49; Stop 11/20/17 at 10:50; Status DC Heparin Sodium (Porcine) (Heparin Inj) 10,000 units STK-MED ONCE .ROUTE ; Start 11/20/17 at 10:49; Stop 11/20/17 at 10:50; Status DC Bupivacaine HCl (Marcaine Pf 0.5% Inj) 20 ml STK-MED ONCE .ROUTE Last administered on 11/20/17at 14:30; Start 11/20/17 at 10:49; Stop 11/20/17 at 10:50; Status DC Thrombin (Thrombin Top [place]) 20,000 units STK-MED ONCE .ROUTE Last administered on 11/20/17at 10:50; Start 11/20/17 at 10:50; Stop 11/20/17 at 10:51; Status DC Heparin Sodium/ Sodium Chloride 500 ml @ As Directed STK-MED ONCE .ROUTE Last administered on 11/20/17at 10:50; Start 11/20/17 at 10:50; Stop 11/20/17 at 10:51; Status DC Cefazolin Sodium/ Dextrose 0 ml @ As Directed STK-MED ONCE .ROUTE ; Start at 10:50; Stop 11/20/17 at 10:51; Status DC Vancomycin HCl (Vancomycin Inj) 1,000 mg STK-MED ONCE .ROUTE Last administered on 11/20/17at 13:06; Start 11/20/17 at 11:39; Stop 11/20/17 at 11:40; Status DC Sodium Chloride 250 ml @ As Directed STK-MED ONCE .ROUTE ; Start 11/20/17 at 11: 39; Stop 11/20/17 at 11:40; Status DC Cisatracurium Besylate (Nimbex Inj) 20 mg STK-MED ONCE .ROUTE ; Start 11/20/17 at 12:10; Stop 11/20/17 at 12:11; Status DC Ketamine HCl (Ketalar Inj) 500 mg STK-MED ONCE .ROUTE ; Start 11/20/17 at 12:10; Stop 11/20/17 at 12:11; Status DC Bupivacaine HCl (Marcaine Pf 0.5% Inj) 30 ml STK-MED ONCE .ROUTE Last administered on 11/20/17at 13:14; Start 11/20/17 at 13:14; Stop 11/20/17 at 13:15; Status DC Iohexol 50 ml @ 0 mls/hr ONCE ONCE IV ; Start 11/20/17 at 13:53; Stop 11/20/17 at 14:17; Status DC Midodrine (Proamatine) 5 mg BID@0900,1800 PO Last administered on 11/24/17at 09: 44; Start 11/21/17 at 09:00; Stop 11/25/17 at 13:26; Status DC Cefazolin Sodium/ Dextrose 50 ml @ 100 mls/hr GAUNTLET PAIRER IV ; Start 11/20/17 at 14 :45; Stop 11/23/17 at 14:44; Status DC Vancomycin HCl 1000 mg/Sodium Chloride 250 ml @ 250 mls/hr GAUNTLET PAIRER IV Last administered on 11/21/17at 10:59; Start 11/20/17 at 14:45; Stop 11/23/17 at 14:44; Status DC Gabapentin (Neurontin) 100 mg TID PO Last administered on 11/25/17at 18:34; Start 11/20/17 at 18:00; Status Future Hold Thyroid (Convoy Thyroid) 60 mg BID PO Last administered on 12/01/17at 09:26; Start 11/20/17 at 21:00 Oxycodone HCl (Roxicodone) 5 mg Q4H PRN PO PAIN SCALE 1 TO 5; Start 11/20/17 at 15:15 Hydromorphone HCl (Dilaudid) 2 mg Q4H PRN PO PAIN SCALE 6 TO 10; Start 11/20/17 at 15:15 Morphine Sulfate (Morphine Inj) 2 mg Q1H PRN IV PUSH BREAKTHROUGH PAIN; Start 11/20/17 at 15:15 Senna/Docusate Sodium (Marleny-Colace) 1 tab BID PO Last administered on at 09:26; Start 11/20/17 at 21:00 Magnesium Hydroxide (Milk Of Magnesia Liq) 30 ml Q12H PRN PO Mild constipation ; Start 11/20/17 at 15:15 Sennosides (Senokot) 17.2 mg Q12H PRN PO Moderate constipation; Start 11/20/17 at 15:15 Bisacodyl (Dulcolax Supp) 10 mg DAILY PRN RECTAL SEVERE CONSITIPATION; Start at 15:15 Lactulose (Lactulose Liq) 30 ml DAILY PRN PO SEVERE CONSITIPATION; Start at 15:15 Propofol 100 ml @ As Directed STK-MED ONCE .ROUTE ; Start 11/20/17 at 15:43; Stop 11/20/17 at 15:44; Status DC Phenylephrine HCl (Neosynephrine Inj) 40 mg STK-MED ONCE .ROUTE Last administered on 11/20/17at 15:43; Start 11/20/17 at 15:43; Stop 11/20/17 at 15:44; Status DC Fentanyl Citrate (fentaNYL INJ) 200 mcg STK-MED ONCE .ROUTE ; Start 11/20/17 at 16:18; Stop 11/20/17 at 16:19; Status DC Midazolam HCl (Versed Inj) 2 mg STK-MED ONCE .ROUTE ; Start 11/20/17 at 16:18; Stop 11/20/17 at 16:19; Status DC Propofol 100 ml @ 2.841 mls/ hr TITRATE PRN IV SEDATION Last administered on at 03:36; Start 11/20/17 at 16:00; Status Future Hold Phenylephrine HCl 40 mg/Dextrose 500 ml @ 30 mls/hr TITRATE PRN IV Blood Pressure Management Last administered on 11/26/17at 08:22; Start 11/20/17 at 16:00 ; Stop 11/27/17 at 08:43; Status DC Terbutaline Sulfate (Brethine Inj) 1 mg UNSCH PRN SQ FOR EXTRAVASATION PROTOCOL ; Start 11/20/17 at 17:30 Miscellaneous Information ALL NURSING DEPARTME... UNSCH PRN .XX SEE LABEL COMMENTS; Start 11/20/17 at 16:08; Stop 11/21/17 at 16:07; Status DC Miscellaneous Information (RASS Change Order) 1 ea ONCE ONCE XX ; Start at 16:00; Stop 11/20/17 at 17:33; Status DC Sodium Chloride (NS Flush) 5 ml UNSCH PRN IV FLUSH SEE PROTOCOL TABLE; Start at 17:45 Heparin Sodium (Porcine) (Heparin Inj) 2,000 units UNSCH PRN IV FLUSH SEE PROTOCOL TABLE; Start 11/20/17 at 17:45 Ceftriaxone Sodium (Rocephin Inj) 1,000 mg STK-MED ONCE .ROUTE ; Start 11/20/17 at 17:55; Stop 11/20/17 at 17:56; Status DC Sodium Chloride 1,000 ml @ 999 mls/hr BOLUS ONCE IV Last administered on at 05:50; Start 11/21/17 at 05:30; Stop 11/21/17 at 06:30; Status DC Albuterol/ Ipratropium (Duoneb Neb) 1 ampule Q4HR NEB PRN NEB WHEEZING Last administered on 12/01/17at 07:54; Start 11/21/17 at 08:45 Epinephrine HCl (EPINEPHrine (1:10,000) INJ) 1 mg STK-MED ONCE .ROUTE ; Start at 11:28; Stop 11/21/17 at 11:29; Status DC Heparin Sodium (Porcine) (*HEPARIN INJ Periprocedural ONLY) 10,000 units STK- MED ONCE .ROUTE Last administered on 11/21/17at 12:00; Start 11/21/17 at 12:00; Stop 11/21/17 at 12:01; Status DC Fentanyl Citrate (fentaNYL INJ) 100 mcg STK-MED ONCE .ROUTE Last administered on 11/21/17at 12:04; Start 11/21/17 at 12:04; Stop 11/21/17 at 12:05; Status DC Dexmedetomidine HCl 200 mcg/ Sodium Chloride 52 ml @ 4.94 mls/hr TITRATE PRN IV SEDATION Last administered on 11/23/17at 05:19; Start 11/22/17 at 07:00; Stop at 09:04; Status DC Albumin Human 100 ml @ 50 mls/hr NOW ONCE IV Last administered on 11/22/17at 10 :45; Start 11/22/17 at 10:45; Stop 11/22/17 at 12:44; Status DC Lidocaine HCl (Xylocaine 1% Inj) 20 ml STK-MED ONCE .ROUTE Last administered on 11/22/17at 15:31; Start 11/22/17 at 16:58; Stop 11/22/17 at 16:59; Status DC Albumin Human (Albumin 25% Inj) 25 gm ONCE ONCE IV Last administered on 17:28; Start 11/22/17 at 17:00; Stop 11/22/17 at 17:01; Status DC Albumin Human (Albumin 25% Inj) 12.5 gm ONCE ONCE IV Last administered on at 17:28; Start 11/22/17 at 17:00; Stop 11/22/17 at 17:01; Status DC Vancomycin HCl 1000 mg/Sodium Chloride 250 ml @ 250 mls/hr ONCE ONCE IV Last administered on 11/23/17at 12:45; Start 11/23/17 at 11:45; Stop 11/23/17 at 12:44; Status DC Pharmacy Profile Note 0 ml @ 0 mls/hr UNSCH OTHER ; Start 11/23/17 at 11:45; Stop 11/23/17 at 14:20; Status DC Micafungin Sodium 150 mg/Sodium Chloride 100 ml @ 100 mls/hr ONCE ONCE IV ; Start 11/23/17 at 16:00; Stop 11/23/17 at 16:03; Status DC Micafungin Sodium 150 mg/Sodium Chloride 100 ml @ 100 mls/hr ONCE ONCE IV Last administered on 11/23/17at 17:00; Start 11/23/17 at 17:00; Stop 11/23/17 at 17: 59; Status DC Nystatin (Mycostatin Cream) 1 applic Q12HR TOPICAL Last administered on at 12:30; Start 11/24/17 at 14:00 Midodrine (Proamatine) 10 mg BID@0900,1800 PO Last administered on 11/30/17at 08 :20; Start 11/25/17 at 18:00; Stop 11/30/17 at 08:29; Status DC Albuterol/ Ipratropium (Duoneb Neb) 1 ampule Q6HR NEB NEB Last administered on 11/29/17at 15:58; Start 11/25/17 at 16:00; Stop 11/29/17 at 15:59; Status DC Heparin Sodium (Porcine) (Heparin Inj) 5,000 units Q12HR SQ Last administered on 12/01/17at 09:25; Start 11/26/17 at 21:00 Sodium Chloride 250 ml @ As Directed STK-MED ONCE IV ; Start 11/20/17 at 12:00; Stop 11/26/17 at 09:49; Status DC Sodium Chloride 500 ml @ As Directed STK-MED ONCE IV ; Start 11/20/17 at 12:00; Stop 11/26/17 at 09:49; Status DC Lidocaine HCl (Xylocaine-Mpf 1% Inj) 5 ml STK-MED ONCE OTHER ; Start 11/20/17 at 12:00; Stop 11/26/17 at 09:49; Status DC Phenylephrine HCl (Neosynephrine/ NS 1000 Mcg/10ml Syr) 2,000 mcg STK-MED ONCE IV ; Start 11/20/17 at 12:00; Stop 11/26/17 at 09:49; Status DC Phenylephrine HCl (Neosynephrine Inj) 20 mg STK-MED ONCE IV ; Start 11/20/17 at 12:00; Stop 11/26/17 at 09:49; Status DC Propofol (Diprivan 200 Mg/20 ml Inj) 200 mg STK-MED ONCE IV ; Start 11/20/17 at 12:00; Stop 11/26/17 at 09:49; Status DC Sterile Water (Sterile Water For Injection) 20 ml STK-MED ONCE IV ; Start at 12:00; Stop 11/26/17 at 09:49; Status DC Sodium Chloride (Sodium Chloride 0.9% Inj) 20 ml STK-MED ONCE IV ; Start at 12:00; Stop 11/26/17 at 09:49; Status DC Levothyroxine Sodium (Synthroid) 150 mcg DAILY@0600 PO Last administered on at 05:25; Start 11/28/17 at 06:00; Stop 11/30/17 at 11:18; Status DC Acetaminophen (Tylenol) 500 mg Q6H PRN PO PAIN SCALE 1-5; Start 11/27/17 at 16: 30 Gentamicin Sulfate (Gentamicin Opht 0.3% Soln) 1 drop Q4HR EACH EYE Last administered on 12/01/17at 12:30; Start 11/29/17 at 16:00 Midodrine (Proamatine) 10 mg Q8HR PO Last administered on 12/01/17at 05:30; Start 11/30/17 at 00:00 Phenylephrine HCl 40 mg/Dextrose 500 ml @ 30 mls/hr TITRATE PRN IV Blood pressure management; Start 11/29/17 at 22:30 Terbutaline Sulfate (Brethine Inj) 1 mg UNSCH PRN SQ For Extravasation; Start 11/29/17 at 22:30 Levothyroxine Sodium (Synthroid) 200 mcg DAILY@0600 PO Last administered on at 05:30; Start 12/01/17 at 06:00 Epinephrine HCl (EPINEPHrine (1:10,000) INJ) 1 mg STK-MED ONCE .ROUTE ; Start at 21:46; Stop 11/30/17 at 21:47; Status DC Atropine Sulfate (Atropine Inj) 1 mg STK-MED ONCE .ROUTE ; Start 11/30/17 at 21: 47; Stop 11/30/17 at 21:48; Status DC Lidocaine HCl (Xylocaine 2% Inj) 100 mg STK-MED ONCE .ROUTE ; Start 11/30/17 at 21:47; Stop 11/30/17 at 21:48; Status DC A/P Problem List: (1) AV fistula occlusion ICD Code: T82.898A - Other specified complication of vascular prosthetic devices, implants and grafts, initial encounter (2) ESRD (end stage renal disease) on dialysis ICD Code: N18.6 - End stage renal disease; Z99.2 - Dependence on renal dialysis (3) Diabetes mellitus ICD Code: E11.9 - Type 2 diabetes mellitus without complications Assessment and Plan Assessment and Plan Neuro: Metabolic encephalopathy - Off all sedation - Continue PT OT speech therapy-failed swallow evaluation today keep nothing by mouth-NGT PLACED - Holding Neurontin - CT head 11/26 negative - TSH elevated, Synthroid increased. B12, ammonia normal SLOW IMPROVEMENT TODAY - Resp: Acute respiratory failure -resolved - Postoperative respiratory failure with failure to wean - Extubated 11/24/17 tolerating well - DuoNeb every 6 hours when necessary for wheezing - EzPAP, Acapella, IS as tolerated - ABG today due to somnolence CVS: Hypotension-resolved Bilateral upper extremity ischemia - s/p L UE bypass - plastics/hand surgery - potential L digit treatment later - Currently on Shon-Synephrine to keep map above 65. DC today off Shon-Synephrine - Midodrine 10 mg every 8 hours - Hold carvedilol due to hypotension - Continue aspirin Plavix GI: - Large-volume ascites removed 11/22/17 - f/u cultures negative to date : End-stage renal disease - Hemodialysis per nephrology - PermCath placement 11/21 Endo: Diabetes mellitus - Insulin sliding scale ID: Bacteremia Sepsis (Enterobacter bacteremia, BC 10/16) Possible left femoral line site infection - Antibiotics per ID (Rocephin) - Repeat blood culture neg to date - Single dose of Micafungin given 11/23/17 for erythema around the left central line site DVT GI prophylaxis - Teds SCDs - Subcutaneous heparin - Pepcid DCd Femoral central line and vascath 11/23/17 New RIJ central line placed 11/23-DC today Dysphagia. Failed swallow eval. Will place NG tube. Consult nutrition for help with tube feeds Conjunctivitis. Started on gentamicin drops DECUBITI- CONSULT [facility] BED Discussed with patient and RN and family Continue aggressive treatment Discharge Planning Pending improvement Patient needs to tolerate a diet which he has not been able to do Meir Schaefer DO Dec 01, 2017 12:59
--- NOTE | 2017-12-01 14:19 | HHI.NPPN ---
Subjective History of Present Illness Patient is a 67-year-old male with a history of end-stage renal disease on hemodialysis Sunday/Sunday/ Sunday, diabetes, CAD, CHF, hypertension was transferred from [facility] to be evaluated by vascular surgery. Patient states he was admitted to [facility] because he had low blood pressure readings at home. AV fistula has not been functioning or used for 6- 8 weeks and they have been using a permacath for dialysis. Permacath has been removed secondary to possible infection and vas cath has been placed. He has been treated with cefepime IV. Last dialysis was Sunday and 1.5 L removed. Patient has a necrotic left middle finger that patient states has been going on for the last 12 weeks. Additional Remarks Patient continues with AMS. NG for tube feeding. Review of Systems Genitourinary Remarks Objective Data Data Vital Signs Date Time Temp Pulse Resp B/P (MAP) Pulse Ox O2 Delivery O2 Flow Rate FiO2 12/01/17 12:00 98 Nasal Cannula 5.00 12/01/17 12:00 97.6 75 20 95/47 (63) 99 12/01/17 08:00 98 Nasal Cannula 5.00 12/01/17 08:00 98.5 84 18 105/57 (73) 98 12/01/17 07:47 99 Nasal Cannula 7.00 12/01/17 03:00 98.2 89 19 107/53 (71) 99 12/01/17 03:00 99 Nasal Cannula 6.00 Humidified 12/01/17 03:00 89 11/30/17 23:00 91 11/30/17 23:00 99 Nasal Cannula 6.00 Humidified 11/30/17 23:00 98.4 88 19 116/62 (80) 99 11/30/17 21:21 99 Nasal Cannula 5.00 11/30/17 19:00 96 Nasal Cannula 6.00 Humidified 11/30/17 19:00 91 11/30/17 19:00 98.9 90 18 113/63 (80) 97 11/30/17 16:00 95 Nasal Cannula 6.00 11/30/17 16:00 98.2 91 24 114/56 (75) 24 -: 12/01/17 0425 12/01/17 0425 Tubes & Lines: Perma-Cath Physical Exam General Appearance: No Acute Distress, Comfortable Eyes Eye Exam: Pupils Equal Throat Throat Exam: Oral Mucosa [place] & Moist Pulmonary Resp Exam: Breath Sounds Equal, No Distress, Decreased Bases Cardiology CV Exam: Regular Gastrointestinal/Abdomen GI Exam: Soft, Non-Tender, Bowel Sounds Present Extremeties Extremities Exam: Moderate Edema (Left arm and hand swelling.) Neurologic Neuro Exam: Stuporous Assessment/Plan Discussed Condition With: Spouse Assessment Summary: End Stage Renal Disease Problem List: (1) ESRD (end stage renal disease) on dialysis ICD Codes: N18.6 - End stage renal disease; Z99.2 - Dependence on renal dialysis Plan: Dialysis MWF s/p L UE bypass 2/6 ligation of AVF and DRIL Anemia Epogen with dialysis Post Paracentesis done 11/22/17. Not in resp. distress. with nasal cannula. NG tube placed for feeding Encephalopathy is almost same. Has off and on confusion. HD done yesterday 2 liters removed Continue HD,MWF. has vasculopathy Left middle finger gangrene (2) Gangrene of finger of left hand ICD Codes: I96 - Gangrene, not elsewhere classified Plan: necrotic area on left hand middle finger (3) AV fistula occlusion ICD Codes: T82.898A - Other specified complication of vascular prosthetic devices, implants and grafts, initial encounter Plan: s/p L UE bypass 2/6 ligation of AVF and DRIL (4) Diabetes mellitus ICD Codes: E11.9 - Type 2 diabetes mellitus without complications Plan: Maintain BS between 140mg/dl to 180 mg/dl Micah Parmar MD Dec 01, 2017 14:19
[2017-12-01] MEDS: cefTRIAXone INJ 2,000 MG in SODIUM CHLORIDE 0.9% INJ 100 ML IV SCH (17:09)
[2017-12-02] VITALS (16 sets, daily range): BP systolic 92–110; BP diastolic 46–65; PULSE 68–97; RESP 18–22; TEMP 98.1–100.4; O2SAT 94–100
[2017-12-02] MEDS: GENTAMICIN SULFATE 0.3% OPHT SOLN 5 ML BTL EACH EYE SCH ×6 (00:27→21:36)
[2017-12-02] MEDS: INSULIN ASPART SUPPLEMENTAL SCALE SQ SCH ×5 (00:27→21:00)
[2017-12-02] MEDS: MIDODRINE 5 MG TAB PO SCH ×3 (05:02→21:35)
[2017-12-02] MEDS: LEVOTHYROXINE SODIUM 200 MCG TAB PO SCH (05:02)
[2017-12-02 06:26] LABS: HEMATOCRIT 26.9 % (39.0-51.0); HEMOGLOBIN 8.5 GM/DL (13.0-17.0); MEAN CELL VOLUME 96.4 FL (80.0-100.0); MEAN CORPUSCULAR HEMOGLOBIN 30.2 PG (27.0-34.0); MEAN CORPUSCULAR HGB CONC 31.4 % (32.0-36.0); MEAN PLATELET VOLUME 9.7 FL (7.0-11.0); PLATELET COUNT 183 TH/MM3 (150-450); RED CELL DISTRIBUTION WIDTH 17.9 % (11.6-17.2); WHITE BLOOD COUNT 10.8 TH/MM3 (4.0-11.0)
[2017-12-02 06:46] LABS: ALBUMIN 2.7 GM/DL (3.4-5.0); AST (GOT) 12 U/L (15-37); BICARBONATE 25.2 MEQ/L (21.0-32.0); BLOOD UREA NITROGEN 21 MG/DL (7-18); CHLORIDE 98 MEQ/L (98-107); CREATININE 5.48 MG/DL (0.60-1.30); GLOMERULAR FILTRATION RATE 11 ML/MIN (>89); GLUCOSE,RANDOM 178 MG/DL (74-106); MAGNESIUM 2.3 MG/DL (1.5-2.5); SODIUM (NA) 139 MEQ/L (136-145)
[2017-12-02 07:11] LABS: ALKALINE PHOSPHATASE 159 U/L (45-117); ALT (GPT) 7 U/L (12-78); PHOSPHORUS 3.4 MG/DL (2.5-4.9); TOTAL BILIRUBIN ADULT 0.5 MG/DL (0.2-1.0); TOTAL PROTEIN 5.4 GM/DL (6.4-8.2)
[2017-12-02] MEDS: NYSTATIN 100,000 UNIT/GM CREAM 15 GM TOPICAL SCH ×2 (08:34→21:37)
[2017-12-02] MEDS: BACITRACIN TOP OINT 15 GM TUBE TOPICAL SCH ×2 (08:34→21:38)
[2017-12-02] MEDS: PANTOPRAZOLE SOD 20 MG DELAYED RELEASE TAB PO SCH (08:35)
[2017-12-02] MEDS: CLOPIDOGREL 75 MG TAB PO SCH (08:35)
[2017-12-02] MEDS: ASPIRIN EC 81 MG TABEC PO SCH (08:35)
[2017-12-02] MEDS: CALCIUM ACETATE 667 MG CAP PO SCH ×3 (08:35→16:55)
[2017-12-02] MEDS: HEPARIN SODIUM - SQ 10,000 UNITS/ML VIAL SQ SCH ×2 (08:35→21:37)
[2017-12-02] MEDS: THYROID 60 MG TAB PO SCH ×2 (08:35→21:34)
[2017-12-02] MEDS: DOCUSATE SODIUM 50 MG/SENNA 8.6 MG TAB PO SCH ×2 (08:36→21:34)
[2017-12-02] MEDS: SODIUM CHLORIDE 0.9% FLUSH 10 ML FLUSH IV FLUSH SCH ×2 (08:36→21:36)
--- NOTE | 2017-12-02 10:19 | HHI.PR ---
Subjective Remarks The patient was resting in bed comfortably. He was not able to participate in the conversation. He seemed open his eyes at times. Discussed with nursing. No acute concerns. Objective Vitals Vital Signs Date Time Temp Pulse Resp B/P (MAP) Pulse Ox O2 Delivery O2 Flow Rate FiO2 12/02/17 08:28 99 Nasal Cannula 3.00 12/02/17 07:41 98 Nasal Cannula 4.00 12/02/17 07:38 98.2 76 18 100/50 (67) 99 12/02/17 07:00 70 12/02/17 04:00 76 12/02/17 03:00 98.1 76 18 101/50 (67) 99 12/02/17 03:00 99 Nasal Cannula 4.00 12/02/17 02:00 91 12/02/17 00:00 68 12/01/17 23:00 69 12/01/17 23:00 98.0 69 18 91/52 (65) 98 12/01/17 23:00 98 Nasal Cannula 4.00 12/01/17 19:00 98.2 77 20 109/60 (76) 97 12/01/17 19:00 77 12/01/17 19:00 97 Nasal Cannula 4.00 12/01/17 18:00 97.6 75 20 95/47 (63) 99 12/01/17 18:00 98 Nasal Cannula 5.00 12/01/17 18:00 97.6 75 20 95/47 (63) 99 12/01/17 18:00 98 Nasal Cannula 5.00 12/01/17 16:00 97.6 75 20 95/47 (63) 99 12/01/17 16:00 98 Nasal Cannula 5.00 12/01/17 14:00 98 Nasal Cannula 5.00 12/01/17 14:00 97.6 75 20 95/47 (63) 99 12/01/17 12:00 98 Nasal Cannula 5.00 12/01/17 12:00 97.6 75 20 95/47 (63) 99 I/O 12/01/17 12/01/17 12/01/17 12/02/17 12/02/17 12/02/17 07:00 15:00 23:00 07:00 15:00 23:00 Intake Total 93 ml 100 ml 395 ml Output Total 0 ml 0 ml Balance 93 ml 100 ml 395 ml Intake Oral 0 ml IV Total 100 ml Tube Feeding 93 ml 395 ml Output Urine Total 0 ml 0 ml # Bowel Movements 0 1 Result Diagram: 12/02/17 0611 12/02/17 0611 Imaging Last Impressions Head CT 11/30/17 0000 Signed Impressions: Service Date/Time: Thursday, November 30, 2017 22:05 - CONCLUSION: 1. No acute findings. No significant change. Uzair Berrios MD Chest X-Ray 11/30/17 0000 Signed Impressions: Service Date/Time: Thursday, November 30, 2017 04:30 - CONCLUSION: Mild improvement in pulmonary edema right lung base. KShireen Lopez MD Abdomen X-Ray 11/29/17 0000 Signed Impressions: Service Date/Time: November 16:03 - CONCLUSION: NG tube tip extends into the duodenum Sami Burnett MD Cyst Biopsy Asp-Paracentesis US 11/22/17 0000 Signed Impressions: Service Date/Time: November 15:20 - CONCLUSION: Uncomplicated ultrasound guided paracentesis. 6 L of chylous appearing fluid was removed. Taj Oden MD Catheter Placement X-Ray 11/21/17 1554 Signed Impressions: Service Date/Time: Tuesday, November 21, 2017 11:42 - CONCLUSION: Uncomplicated PermaCath placement as above. James Mike MD Lower Extremity Ultrasound 11/13/17 0000 Signed Impressions: Service Date/Time: Monday, November 13, 2017 07:52 - CONCLUSION: No DVT seen in either leg. Jewel Kaiser MD Hand X-Ray 11/13/17 0000 Signed Impressions: Service Date/Time: Monday, November 13, 2017 10:18 - CONCLUSION: Osteoporosis. Extensive arterial calcifications. 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 No definite evidence of bony destruction or osteomyelitis Jared Upton MD Objective Remarks GENERAL: Appears comfortable. SKIN: Warm and dry. HEAD: Atraumatic. Normocephalic. EYES: Pupils equal and round. No scleral icterus. No injection or drainage. ENT: No nasal bleeding or discharge. Mucous membranes pink and moist. NECK: Trachea midline. No JVD. CARDIOVASCULAR: Regular rate and rhythm. No murmur appreciated. RESPIRATORY: No accessory muscle use. Coarse breath sounds bilaterally GASTROINTESTINAL: Abdomen soft, non-tender, nondistended. Hepatic and splenic margins not palpable. MUSCULOSKELETAL: Extremities without clubbing, cyanosis. RUE with 1+ edema. No obvious deformities. NEUROLOGICAL: No obvious cranial nerve deficits. Unable to participate in exam. Procedures 11/20 Sp LUE angiogram. 11/21 permacath placement Medications and IVs Current Medications Medications (Trade) Dose Ordered Sig/Renny Route Start Time Stop Time Status Last Admin (NS Flush) 2 ml BID IV FLUSH 11/12/17 21:00 12/02/17 08:36 (Tylenol) 650 mg Q4H PRN PO 11/12/17 20:00 11/24/17 05:32 (Zofran Inj) 4 mg Q6H PRN IVP 11/12/17 20:00 (Narcan Inj) 0.4 mg UNSCH PRN IV PUSH 11/12/17 20:00 (Senokot) 17.2 mg Q12H PRN PO 11/12/17 20:00 (D50w (Vial) Inj) 50 ml UNSCH PRN IV PUSH 11/12/17 23:30 (Glucagon Inj) 1 mg UNSCH PRN OTHER 11/12/17 23:30 (NovoLOG SUPPLEMENTAL SCALE) 1 ACHS SLIDING SCALE SQ 11/13/17 08:00 12/02/17 08:33 (Phoslo) 667 mg TID PO 11/13/17 09:00 12/02/17 08:35 (Ecotrin Ec) 162 mg DAILY PO 11/13/17 09:00 12/02/17 08:35 (Plavix) 75 mg DAILY PO 11/13/17 09:00 Future hold 12/02/17 08:35 (Baciguent Oint) 1 applic Q12HR TOPICAL 11/13/17 21:00 12/02/17 08:34 Sodium Chloride 1,000 ml @ 0 mls/hr Q0M PRN OTHER 11/13/17 14:09 11/23/17 11:30 (Heparin Inj) 8,000 units UNSCH PRN IV FLUSH 11/13/17 14:15 11/15/17 15:23 Sodium Chloride 1,000 ml @ 200 mls/hr Q5H PRN IV 11/13/17 14:09 11/26/17 07:15 Sodium Chloride 1,000 ml @ 0 mls/hr Q0M PRN OTHER 11/13/17 14:09 (Mannitol Inj) 12.5 gm UNSCH PRN IV 11/13/17 14:15 11/17/17 11:53 Albumin Human 100 ml @ 60 mls/hr UNSCH PRN IV 11/13/17 14:15 11/30/17 08:48 (NS Flush) 5 ml UNSCH PRN IV FLUSH 11/13/17 14:15 (Heparin Inj) UNSCH PRN .XX 11/13/17 14:15 11/30/17 10:37 (Gentamicin Inj) 20 mg UNSCH PRN OTHER 11/13/17 14:15 11/30/17 10:38 (Zofran Inj) 4 mg UNSCH PRN IV PUSH 11/13/17 14:15 (Tylenol) 650 mg UNSCH PRN PO 11/13/17 14:15 11/18/17 08:40 (Benadryl) 25 mg UNSCH PRN PO 11/13/17 14:15 (Nitrostat Sl) 0.4 mg UNSCH PRN SL 11/13/17 14:15 (Catapres) 0.1 mg UNSCH PRN PO 11/13/17 14:15 (Epogen Inj) 4,000 units UNSCH PRN IV PUSH 11/13/17 14:15 11/30/17 10:38 (Gelfoam 12 Mm/7 Mm Top) 1 foam UNSCH PRN TOP 11/13/17 14:15 Ceftriaxone Sodium 2000 mg/ Sodium Chloride 100 ml @ 200 mls/hr Q24H IV 11/13/17 16:00 12/01/17 17:09 (Coreg) 3.125 mg BID PO 11/16/17 21:00 Future Hold 11/22/17 08:37 (Protonix) 20 mg DAILY PO 11/17/17 09:00 12/02/17 08:35 (Neurontin) 100 mg TID PO 11/20/17 18:00 Future Hold 11/25/17 18:34 ([place] Thyroid) 60 mg BID PO 11/20/17 21:00 12/02/17 08:35 (Roxicodone) 5 mg Q4H PRN PO 11/20/17 15:15 (Dilaudid) 2 mg Q4H PRN PO 11/20/17 15:15 (Morphine Inj) 2 mg Q1H PRN IV PUSH 11/20/17 15:15 ([place]-Colace) 1 tab BID PO 11/20/17 21:00 12/01/17 21:18 (Milk Of Magnesia Liq) 30 ml Q12H PRN PO 11/20/17 15:15 (Senokot) 17.2 mg Q12H PRN PO 11/20/17 15:15 (Dulcolax Supp) 10 mg DAILY PRN RECTAL 11/20/17 15:15 (Lactulose Liq) 30 ml DAILY PRN PO 11/20/17 15:15 Propofol 100 ml @ 2.841 mls/ hr TITRATE PRN IV 11/20/17 16:00 Future Hold 11/22/17 03:36 (Brethine Inj) 1 mg UNSCH PRN SQ 11/20/17 17:30 (NS Flush) 5 ml UNSCH PRN IV FLUSH 11/20/17 17:45 (Heparin Inj) 2,000 units UNSCH PRN IV FLUSH 11/20/17 17:45 (Duoneb Neb) 1 ampule Q4HR NEB PRN NEB 11/21/17 08:45 12/01/17 07:54 (Mycostatin Cream) 1 applic Q12HR TOPICAL 11/24/17 14:00 12/02/17 08:34 (Heparin Inj) 5,000 units Q12HR SQ 11/26/17 21:00 12/02/17 08:35 (Tylenol) 500 mg Q6H PRN PO 11/27/17 16:30 (Gentamicin Opht 0.3% Soln) 1 drop Q4HR EACH EYE 11/29/17 16:00 12/02/17 08:34 (Proamatine) 10 mg Q8HR PO 11/30/17 00:00 12/02/17 05:02 Phenylephrine HCl 40 mg/Dextrose 500 ml @ 30 mls/hr TITRATE PRN IV 11/29/17 22:30 (Brethine Inj) 1 mg UNSCH PRN SQ 11/29/17 22:30 (Synthroid) 200 mcg DAILY@0600 PO 12/01/17 06:00 12/02/17 05:02 A/P Problem List: (1) AV fistula occlusion ICD Code: T82.898A - Other specified complication of vascular prosthetic devices, implants and grafts, initial encounter (2) ESRD (end stage renal disease) on dialysis ICD Code: N18.6 - End stage renal disease; Z99.2 - Dependence on renal dialysis (3) Diabetes mellitus ICD Code: E11.9 - Type 2 diabetes mellitus without complications Assessment and Plan Metabolic encephalopathy - Off all sedation - Continue PT OT speech therapy. - tube feeds via NGT. Dietary following. - Holding Neurontin. - CT head 11/26 negative - TSH elevated, Synthroid increased. B12, ammonia normal Acute respiratory failure -resolved - Postoperative respiratory failure with failure to wean. - Extubated 11/24/17 tolerating well. - DuoNeb every 6 hours when necessary for wheezing. - EzPAP, Acapella, IS as tolerated. Bilateral upper extremity ischemia - s/p L UE bypass. - plastics/hand surgery - potential L digit treatment later. - off Shon-Synephrine. - Midodrine 10 mg every 8 hours. - Hold carvedilol due to hypotension. - Continue aspirin Plavix. Large-volume ascites S/p paracentesis. - f/u cultures negative to date. End-stage renal disease - Hemodialysis per nephrology. - PermCath placement 11/21. Diabetes mellitus - Insulin sliding scale. Bacteremia/ Sepsis (Enterobacter bacteremia, BC 10/16) Possible left femoral line site infection. - Antibiotics per ID (Rocephin). - Repeat blood culture neg to date. - Single dose of Micafungin given 11/23/17 for erythema around the left central line site. Conjunctivitis - Started on gentamicin drops. DVT GI prophylaxis - Teds SCDs - Subcutaneous heparin - Hola Pedro DO Dec 02, 2017 10:19
[2017-12-02 10:35] LABS: BANDS 21 % (0-6); LYMPHOCYTES 5 % (9-44); MONOCYTES 10 % (0-8); NEUTROPHIL # MANUAL DIFF 9.1 TH/MM3 (1.8-7.7); POLYS (SEG NEUTROPHILS) 63 % (16-70)
[2017-12-02 10:36] LABS: OVALOCYTES 1+ (NORMAL); TOXIC GRANULATION 2+ (NORMAL)
--- NOTE | 2017-12-02 12:42 | HHI.NPPN ---
Subjective History of Present Illness Patient is a 67-year-old male with a history of end-stage renal disease on hemodialysis Sunday/Sunday/ Sunday, diabetes, CAD, CHF, hypertension was transferred from [facility] to be evaluated by vascular surgery. Patient states he was admitted to [facility] because he had low blood pressure readings at home. AV fistula has not been functioning or used for 6- 8 weeks and they have been using a permacath for dialysis. Permacath has been removed secondary to possible infection and vas cath has been placed. He has been treated with cefepime IV. Last dialysis was Sunday and 1.5 L removed. Patient has a necrotic left middle finger that patient states has been going on for the last 12 weeks. Additional Remarks Patient continues with AMS. NG for tube feeding. Review of Systems Genitourinary Remarks Objective Data Data Vital Signs Date Time Temp Pulse Resp B/P (MAP) Pulse Ox O2 Delivery O2 Flow Rate FiO2 12/02/17 11:11 98 Nasal Cannula 4.00 12/02/17 11:09 98.2 76 18 100/50 (67) 99 12/02/17 11:00 69 12/02/17 08:28 99 Nasal Cannula 3.00 12/02/17 07:41 98 Nasal Cannula 4.00 12/02/17 07:38 98.2 76 18 100/50 (67) 99 12/02/17 07:00 70 12/02/17 04:00 76 12/02/17 03:00 98.1 76 18 101/50 (67) 99 12/02/17 03:00 99 Nasal Cannula 4.00 12/02/17 02:00 91 12/02/17 00:00 68 12/01/17 23:00 69 12/01/17 23:00 98.0 69 18 91/52 (65) 98 12/01/17 23:00 98 Nasal Cannula 4.00 12/01/17 19:00 98.2 77 20 109/60 (76) 97 12/01/17 19:00 77 12/01/17 19:00 97 Nasal Cannula 4.00 12/01/17 18:00 97.6 75 20 95/47 (63) 99 12/01/17 18:00 98 Nasal Cannula 5.00 12/01/17 18:00 97.6 75 20 95/47 (63) 99 12/01/17 18:00 98 Nasal Cannula 5.00 12/01/17 16:00 97.6 75 20 95/47 (63) 99 12/01/17 16:00 98 Nasal Cannula 5.00 12/01/17 14:00 98 Nasal Cannula 5.00 12/01/17 14:00 97.6 75 20 95/47 (63) 99 -: 12/02/17 0611 12/02/17 0611 Tubes & Lines: Perma-Cath Physical Exam General Appearance: No Acute Distress, Comfortable Eyes Eye Exam: Pupils Equal Throat Throat Exam: Oral Mucosa [place] & Moist Pulmonary Resp Exam: Breath Sounds Equal, No Distress, Decreased Bases Cardiology CV Exam: Regular Gastrointestinal/Abdomen GI Exam: Soft, Non-Tender, Bowel Sounds Present Extremeties Extremities Exam: Moderate Edema (Left arm and hand swelling.) Neurologic Neuro Exam: Stuporous Assessment/Plan Discussed Condition With: Spouse Assessment Summary: End Stage Renal Disease Problem List: (1) ESRD (end stage renal disease) on dialysis ICD Codes: N18.6 - End stage renal disease; Z99.2 - Dependence on renal dialysis Plan: Dialysis MWF s/p L UE bypass 2/6 ligation of AVF and DRIL Anemia Epogen with dialysis Post Paracentesis done 11/22/17. Not in resp. distress. with nasal cannula. NG tube placed for feeding Encephalopathy is almost same. Has off and on confusion. HD done Sunday 2 liters removed Continue HD,MWF. has vasculopathy Left middle finger gangrene/ring finger as well to follow (2) Gangrene of finger of left hand ICD Codes: I96 - Gangrene, not elsewhere classified Plan: necrotic area on left hand middle finger (3) AV fistula occlusion ICD Codes: T82.898A - Other specified complication of vascular prosthetic devices, implants and grafts, initial encounter Plan: s/p L UE bypass 2/6 ligation of AVF and DRIL (4) Diabetes mellitus ICD Codes: E11.9 - Type 2 diabetes mellitus without complications Plan: Maintain BS between 140mg/dl to 180 mg/dl Micah Parmar MD Dec 02, 2017 12:42
--- NOTE | 2017-12-02 12:46 | PD.VS.PN ---
Subjective Procedure(s): L brachial-brachial bypass, ligation of AVF Subjective/Hospital Course somnolent today but did verbalize generic responses Objective Vitals/I&O Date Time Temp Pulse Resp B/P (MAP) Pulse Ox O2 Delivery O2 Flow Rate FiO2 12/02/17 11:11 98 Nasal Cannula 4.00 12/02/17 11:09 98.2 76 18 100/50 (67) 99 12/02/17 11:00 69 12/02/17 08:28 99 Nasal Cannula 3.00 12/02/17 07:41 98 Nasal Cannula 4.00 12/02/17 07:38 98.2 76 18 100/50 (67) 99 12/02/17 07:00 70 12/02/17 04:00 76 12/02/17 03:00 98.1 76 18 101/50 (67) 99 12/02/17 03:00 99 Nasal Cannula 4.00 12/02/17 02:00 91 12/02/17 00:00 68 12/01/17 23:00 69 12/01/17 23:00 98.0 69 18 91/52 (65) 98 12/01/17 23:00 98 Nasal Cannula 4.00 12/01/17 19:00 98.2 77 20 109/60 (76) 97 12/01/17 19:00 77 12/01/17 19:00 97 Nasal Cannula 4.00 12/01/17 18:00 97.6 75 20 95/47 (63) 99 12/01/17 18:00 98 Nasal Cannula 5.00 12/01/17 18:00 97.6 75 20 95/47 (63) 99 12/01/17 18:00 98 Nasal Cannula 5.00 12/01/17 16:00 97.6 75 20 95/47 (63) 99 12/01/17 16:00 98 Nasal Cannula 5.00 12/01/17 14:00 98 Nasal Cannula 5.00 12/01/17 14:00 97.6 75 20 95/47 (63) 99 12/02/17 12/02/17 12/02/17 07:00 15:00 23:00 Intake Total 395 ml Output Total 0 ml Balance 395 ml Exam: L UE incision c/d/i Strong Doppler signals radial, ulnar, palmar arch Laboratory Laboratory Tests Test 12/02/17 06:11 White Blood Count 10.8 Red Blood Count 2.80 Hemoglobin 8.5 Hematocrit 26.9 Mean Corpuscular Volume 96.4 Mean Corpuscular Hemoglobin 30.2 Mean Corpuscular Hemoglobin Concent 31.4 Red Cell Distribution Width 17.9 Platelet Count 183 Mean Platelet Volume 9.7 CBC Comment AUTO DIFF Differential Total Cells Counted 100 Neutrophils % (Manual) 63 Band Neutrophils % 21 Lymphocytes % 5 Monocytes % 10 Eosinophils % 1 Neutrophils # (Manual) 9.1 Differential Comment FINAL DIFF MANUAL Toxic Granulation 2+ Platelet Estimate NORMAL Platelet Morphology Comment NORMAL Ovalocytes 1+ Blood Urea Nitrogen 21 Creatinine 5.48 Random Glucose 178 Total Protein 5.4 Albumin 2.7 Calcium Level 9.0 Phosphorus Level 3.4 Magnesium Level 2.3 Alkaline Phosphatase 159 Aspartate Amino Transf (AST/SGOT) 12 Alanine Aminotransferase (ALT/SGPT) 7 Total Bilirubin 0.5 Sodium Level 139 Potassium Level 4.1 Chloride Level 98 Carbon Dioxide Level 25.2 Anion Gap 16 Estimat Glomerular Filtration Rate 11 Date/Time Source Procedure Growth Status 11/24/17 04:13 Blood Peripheral Blood Fungal Culture - Preliminary NO GROWTH IN 1 WEEK Resulted 11/24/17 04:13 Blood Peripheral Blood Fungal Culture - Preliminary NO GROWTH IN 1 WEEK Resulted 11/22/17 15:38 Fluid Peritoneal Fluid Gram Stain - Final Complete 11/22/17 15:38 Fluid Peritoneal Fluid Body Fluid Culture - Final NO GROWTH IN 72 HRS.--AEROBICALLY OR ... Complete 11/23/17 17:40 Catheter Tip Central Venous Line Fungal Culture - Final Complete Assessment and Plan Plan S/p L UE bypass, access ligation UE warm and bypass patent by exam Plan 1. Continue pulse checks 2. Enteral feeds and PT 3. Reconsult plastics/hand for digit amputation Discharge Planning Anytime from a vascular surgery standpoint but clearly many other issues (ID, mental status, cardiac, renal) Issa Jansen MD Dec 02, 2017 12:46
[2017-12-02] MEDS: RESP: ALBUTEROL 2.5 MG/IPRATROPIUM 0.5 MG NEB (PRN) NEB (13:59)
[2017-12-02] MEDS: cefTRIAXone INJ 2,000 MG in SODIUM CHLORIDE 0.9% INJ 100 ML IV SCH (16:54)
--- NOTE | 2017-12-02 19:13 | RADRPT ---
EXAM DATE/TIME: 12/02/2017 18:51 [facility] COMPARISON: CHEST SINGLE AP, November 30, 2017, 4:30. INDICATIONS : Respiratory failure. MEDICAL HISTORY : Myocardial infarction. Congestive heart failure. Hypothyroidism. SURGICAL HISTORY : Pacemaker. CABG. ENCOUNTER: Subsequent ACUITY: 2 weeks PAIN SCORE: Non-responsive. LOCATION: Bilateral chest FINDINGS: Portable AP view of the chest demonstrates a normal-sized cardiac silhouette. Left chest wall cardiac pacing device/AICD remains present. Nasogastric tube extends into the stomach and right IJ line tip is in the SVC near the cavoatrial junction. Multiple EKG lines overlie the patient. The patient's chi n obscures the right lung apex. There is diffuse right lung airspace consolidation with blunting of t he right costophrenic sulcus and there is patchy airspace opacity in the left lung base. CONCLUSION: Stable chest x-ray with diffuse right lung airspace consolidation and small right pleural effusion. A mild airspace opacity is present at the left lung base. Sami Deng MD on December 02, 2017 at 19:10 Board Certified Radiologist. This report was verified electronically.
[2017-12-02] MEDS: ACETAMINOPHEN 325 MG TAB PO PRN (21:34)
[2017-12-03] VITALS (26 sets, daily range): BP systolic 82–113; BP diastolic 45–97; PULSE 66–100; RESP 4–28; TEMP 97.9–99.2; O2SAT 90–100
[2017-12-03] MEDS: GENTAMICIN SULFATE 0.3% OPHT SOLN 5 ML BTL EACH EYE SCH ×7 (04:00→23:59)
[2017-12-03 04:21] LABS: HEMOGLOBIN 9.6 GM/DL (13.0-17.0); MEAN CELL VOLUME 95.2 FL (80.0-100.0); MEAN CORPUSCULAR HEMOGLOBIN 29.5 PG (27.0-34.0); MEAN PLATELET VOLUME 9.4 FL (7.0-11.0); PLATELET COUNT 160 TH/MM3 (150-450); RED BLOOD COUNT 3.25 MIL/MM3 (4.50-5.90); RED CELL DISTRIBUTION WIDTH 17.4 % (11.6-17.2); WHITE BLOOD COUNT 14.3 TH/MM3 (4.0-11.0)
[2017-12-03 04:44] LABS: BICARBONATE 28.3 MEQ/L (21.0-32.0); CALCIUM 9.5 MG/DL (8.5-10.1); CREATININE 6.04 MG/DL (0.60-1.30); MAGNESIUM 2.3 MG/DL (1.5-2.5)
[2017-12-03] MEDS: LEVOTHYROXINE SODIUM 200 MCG TAB PO SCH (06:00)
[2017-12-03] MEDS: MIDODRINE 5 MG TAB PO SCH ×3 (06:00→21:43)
[2017-12-03] MEDS: RESP: ALBUTEROL 2.5 MG/IPRATROPIUM 0.5 MG NEB (PRN) NEB (07:13)
--- NOTE | 2017-12-03 07:59 | PD.VS.PN ---
Subjective Procedure(s): L brachial-brachial bypass, ligation of AVF Subjective/Hospital Course even more somnolent today Objective Vitals/I&O Date Time Temp Pulse Resp B/P (MAP) Pulse Ox O2 Delivery O2 Flow Rate FiO2 12/03/17 07:14 92 Nasal Cannula 5.00 12/03/17 07:00 97 Nasal Cannula 5.00 12/03/17 07:00 96 12/03/17 07:00 97.9 96 28 97/97 (97) 90 12/03/17 03:00 96 12/03/17 03:00 99.2 96 18 103/50 (67) 97 12/03/17 03:00 97 Nasal Cannula 2.00 Non-Rebreather 12/02/17 23:00 100.0 97 20 92/46 (61) 98 12/02/17 23:00 96 12/02/17 23:00 99 Nasal Cannula 3.00 Non-Rebreather 12/02/17 20:40 94 Nasal Cannula 2.00 12/02/17 20:23 95 Nasal Cannula 4.00 12/02/17 20:00 98 Venturi Mask 6.00 50 12/02/17 19:00 100.4 97 22 110/65 (80) 100 12/02/17 19:00 100 Nasal Cannula 12.00 Non-Rebreather 12/02/17 19:00 97 12/02/17 15:14 98 Nasal Cannula 3.00 12/02/17 15:10 98.2 96 18 96/48 (64) 99 12/02/17 15:00 95 12/02/17 11:11 98 Nasal Cannula 4.00 12/02/17 11:09 98.2 76 18 100/50 (67) 99 12/02/17 11:00 69 12/02/17 08:28 99 Nasal Cannula 3.00 12/03/17 12/03/17 12/03/17 07:00 15:00 23:00 Output Total 0 ml Balance 0 ml Exam: L UE incision c/d/i no erythema strong Doppler signals L radial/ ulnar, palmar arch Laboratory Laboratory Tests Test 12/02/17 18:43 12/03/17 04:09 Blood Gas Puncture Site RT RADIAL Blood Gas Patient Temperature 98.6 Blood Gas HCO3 29 Blood Gas Base Excess 3.7 Blood Gas Oxygen Saturation 97 Arterial Blood pH 7.33 Arterial Blood Partial Pressure CO2 57 Arterial Blood Partial Pressure O2 233 Arterial Blood Oxygen Content 12.8 Arterial Blood Carboxyhemoglobin 1.4 Arterial Blood Methemoglobin 1.2 Blood Gas Hemoglobin 9.0 Oxygen Delivery Device Non-Rebreathing Mask Blood Gas Liter Flow 15 Blood Gas Inspired Oxygen 100 White Blood Count 14.3 Red Blood Count 3.25 Hemoglobin 9.6 Hematocrit 31.0 Mean Corpuscular Volume 95.2 Mean Corpuscular Hemoglobin 29.5 Mean Corpuscular Hemoglobin Concent 31.0 Red Cell Distribution Width 17.4 Platelet Count 160 Mean Platelet Volume 9.4 Blood Urea Nitrogen 24 Creatinine 6.04 Random Glucose 127 Calcium Level 9.5 Magnesium Level 2.3 Sodium Level 140 Potassium Level 4.2 Chloride Level 99 Carbon Dioxide Level 28.3 Anion Gap 13 Estimat Glomerular Filtration Rate 9 Date/Time Source Procedure Growth Status 11/24/17 04:13 Blood Peripheral Blood Fungal Culture - Preliminary NO GROWTH IN 1 WEEK Resulted 11/24/17 04:13 Blood Peripheral Blood Fungal Culture - Preliminary NO GROWTH IN 1 WEEK Resulted 11/22/17 15:38 Fluid Peritoneal Fluid Gram Stain - Final Complete 11/22/17 15:38 Fluid Peritoneal Fluid Body Fluid Culture - Final NO GROWTH IN 72 HRS.--AEROBICALLY OR ... Complete 11/23/17 17:40 Catheter Tip Central Venous Line Fungal Culture - Final Complete Assessment and Plan Plan S/p L UE bypass, access ligation UE warm and bypass patent by exam Plan 1. Continue pulse checks 2. Enteral feeds and PT 3. Reconsult plastics/hand for digit amputation Discharge Planning Anytime from a vascular surgery standpoint but clearly many other issues (ID, mental status, cardiac, renal) Issa Jansen MD Dec 03, 2017 07:59
[2017-12-03] MEDS: INSULIN ASPART SUPPLEMENTAL SCALE SQ SCH ×4 (08:42→23:58)
[2017-12-03] MEDS ORDERED: ROCURONIUM INJ 50 MG/5 ML VIAL ONE (09:40)
[2017-12-03] MEDS ORDERED: ETOMIDATE 40 MG/20 ML VIAL ONE (09:41)
[2017-12-03] MEDS: CALCIUM ACETATE 667 MG CAP PO SCH ×3 (10:57→18:00)
[2017-12-03] MEDS: DOCUSATE SODIUM 50 MG/SENNA 8.6 MG TAB PO SCH ×2 (10:57→19:51)
[2017-12-03] MEDS: ASPIRIN EC 81 MG TABEC PO SCH (10:57)
[2017-12-03] MEDS: PANTOPRAZOLE SOD 20 MG DELAYED RELEASE TAB PO SCH (10:57)
[2017-12-03] MEDS: CLOPIDOGREL 75 MG TAB PO SCH (10:58)
[2017-12-03] MEDS: HEPARIN SODIUM - SQ 10,000 UNITS/ML VIAL SQ SCH ×2 (10:59→21:43)
[2017-12-03] MEDS: SODIUM CHLORIDE 0.9% FLUSH 10 ML FLUSH IV FLUSH SCH ×2 (11:01→21:44)
[2017-12-03] MEDS: BACITRACIN TOP OINT 15 GM TUBE TOPICAL SCH ×2 (11:04→21:44)
[2017-12-03] MEDS: NYSTATIN 100,000 UNIT/GM CREAM 15 GM TOPICAL SCH ×2 (11:04→21:46)
[2017-12-03] MEDS ORDERED: fentaNYL DRIP 250 ML IV PRN (11:15)
--- NOTE | 2017-12-03 11:17 | HHI.CCPN ---
Subjective Remarks/Hospital Course 67-year-old male, has been at [facility] for the last 15 days, transferred to [facility] for vascular evaluation. Patient has known end-stage renal disease and gets hemodialysis every Sunday and Sunday. He had a left upper extremity AV fistula, and it had some problem, so he underwent left upper extremity access revision, left upper extremity distal revascularization and interval ligation, last August 07, 2017. He was discharged, and apparently the fistula was working okay, and during that admission also he had that left middle finger dry gangrene which was felt to be ischemic in nature due to steal syndrome. As an outpatient, his fistula apparently stopped working, so he had a permacath placed in his right IJ. Patient stated that he's had problem on and off with low blood pressure for the last 4 months. The hypotension were getting worse and he ended up getting admitted at [facility] where he stayed for at least 15 days. During that admission, he had some positive blood culture done on November 05 that grew Enterobacter cloaca. Blood culture from November 07 were negative. His permacath was removed on November 07 and the culture of that was negative. Patient underwent L UE bypass brachial-brachial and ligation of the AV fistula. Is scheduled for permacath placement tomorrow morning and remains in the ICU sedated and intubated. Subjective: 11/21: Afebrile .The patient remains intubated and sedated. Plan for permacath placement this a.m.. Will resume ventilator weaning postoperatively. 11/22: Attempted CPAP trials postoperatively yesterday, unsuccessful. Patient continues on phenylephrine currently a 60 mics/minute. Propofol discontinued Precedex infusion initiated CPAP trials are reinitiated this a.m. with plans for SBT later this morning and possible extubation. 11/23: Getting HD. Patient is awake, but very weak. On CPAP but requiring high pressure support 20. Had US guided paracentesis yesterday with 6L fluid removed- chylous. Remains on Precedex and remains on Shon-Synephrine at 60 mcg/min increased to 100 mcg/min 11/24: Remains intubated off all sedation. Requiring Shon-Synephrine at 80 mcg/ min to keep map above 65. HD with 2L removed. Left groin central line was removed and right groin hemodialysis catheter was removed yesterday 11/23/17. New right IJ central line placed yesterday 11/25: Extubated yesterday tolerating well respiratory harris. Remains on Shon- Synephrine to maintain map above 65. Cultures remain negative. Patient intermittently not cooperative with care. He is oriented 2 11/26: At around 2 AM today had episode of unresponsiveness, correlating with hypotension was hard to awake. Currently patient is awake but very lethargic voice is very soft but oriented to person and place. I will hold the Neurontin avoid all sedation currently on Shon-Synephrine at 30 mcg/min. completed hemodialysis today with 3L removed 11/27: Mentation and alertness seems to be slightly improved. TSH elevated at 8.8, increase Synthroid to 150 mcg per day. Patient is oriented to person and place. Remains very weak 11/28: Somnolent but wakes up easily, remains oriented to person. Chest x-ray unchanged. No evidence of new weakness. Discussed with Dr. Jansen 12/03 Reconsult: Patient was found unresponsive he was subsequently intubated and placed on mechanical ventilation. T:100.4 last night. Objective Vital Signs Date Time Temp Pulse Resp B/P (MAP) Pulse Ox O2 Delivery O2 Flow Rate FiO2 12/03/17 09:56 100 100 12/03/17 07:14 Nasal Cannula 5.00 12/03/17 07:00 96 12/03/17 07:00 97.9 28 97/97 (97) Intake and Output 12/03/17 12/03/17 12/04/17 08:00 16:00 00:00 Output Total 0 ml Balance 0 ml Result Diagram: 12/03/17 0409 12/03/17 0409 Other Results Laboratory Tests Test 12/02/17 18:43 12/03/17 04:09 Blood Gas Puncture Site RT RADIAL Blood Gas Patient Temperature 98.6 Blood Gas HCO3 29 mmol/L Blood Gas Base Excess 3.7 mmol/L Blood Gas Oxygen Saturation 97 % Arterial Blood pH 7.33 Arterial Blood Partial Pressure CO2 57 mmHg Arterial Blood Partial Pressure O2 233 mmHg Arterial Blood Oxygen Content 12.8 Vol % Arterial Blood Carboxyhemoglobin 1.4 % Arterial Blood Methemoglobin 1.2 % Blood Gas Hemoglobin 9.0 G/DL Oxygen Delivery Device Non-Rebreathing Mask Blood Gas Liter Flow 15 L/M Blood Gas Inspired Oxygen 100 % White Blood Count 14.3 TH/MM3 Red Blood Count 3.25 MIL/MM3 Hemoglobin 9.6 GM/DL Hematocrit 31.0 % Mean Corpuscular Volume 95.2 FL Mean Corpuscular Hemoglobin 29.5 PG Mean Corpuscular Hemoglobin Concent 31.0 % Red Cell Distribution Width 17.4 % Platelet Count 160 TH/MM3 Mean Platelet Volume 9.4 FL Blood Urea Nitrogen 24 MG/DL Creatinine 6.04 MG/DL Random Glucose 127 MG/DL Calcium Level 9.5 MG/DL Magnesium Level 2.3 MG/DL Sodium Level 140 MEQ/L Potassium Level 4.2 MEQ/L Chloride Level 99 MEQ/L Carbon Dioxide Level 28.3 MEQ/L Anion Gap 13 MEQ/L Estimat Glomerular Filtration Rate 9 ML/MIN Imaging Last Impressions Chest X-Ray 12/02/17 0000 Signed Impressions: Service Date/Time: Saturday, December 02, 2017 18:51 - CONCLUSION: Stable chest x-ray with diffuse right lung airspace consolidation and small right pleural effusion. A mild airspace opacity is present at the left lung base. Sami Deng MD Head CT 11/30/17 0000 Signed Impressions: Service Date/Time: Thursday, November 30, 2017 22:05 - CONCLUSION: 1. No acute findings. No significant change. Uzair Berrios MD Abdomen X-Ray 11/29/17 0000 Signed Impressions: Service Date/Time: November 16:03 - CONCLUSION: NG tube tip extends into the duodenum Sami Burnett MD Cyst Biopsy Asp-Paracentesis US 11/22/17 0000 Signed Impressions: Service Date/Time: November 15:20 - CONCLUSION: Uncomplicated ultrasound guided paracentesis. 6 L of chylous appearing fluid was removed. Taj Oden MD Catheter Placement X-Ray 11/21/17 1724 Signed Impressions: Service Date/Time: Tuesday, November 21, 2017 11:42 - CONCLUSION: Uncomplicated PermaCath placement as above. James Mike MD Lower Extremity Ultrasound 11/13/17 0000 Signed Impressions: Service Date/Time: Monday, November 13, 2017 07:52 - CONCLUSION: No DVT seen in either leg. Jewel Kaiser MD Hand X-Ray 11/13/17 0000 Signed Impressions: Service Date/Time: Monday, November 13, 2017 10:18 - CONCLUSION: Osteoporosis. Extensive arterial calcifications. 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 No definite evidence of bony destruction or osteomyelitis Jared Upton MD Procedures 11/20 Sp LUE angiogram. 11/21 permacath placement Objective Remarks GENERAL: Patient is 67 yo intubated SKIN: Warm and dry. HEAD: Normocephalic. EYES: No scleral icterus. No injection or drainage. NECK: Supple, trachea midline. No JVD or lymphadenopathy. CARDIOVASCULAR: Regular rate and rhythm without murmurs, gallops, or rubs. RESPIRATORY: Breath sounds equal bilaterally. No accessory muscle use. GASTROINTESTINAL: Abdomen soft, non-tender, nondistended. MUSCULOSKELETAL: No cyanosis, or edema. BACK: Nontender without obvious deformity. No CVA tenderness. Neuro: Intubated A/P Assessment and Plan Neuro: Metabolic encephalopathy - Fentanyl infusion for sedation if needed. Monitor neuro status - CT head 11/26 and 11/30 negative -Check EEG, MRI brain couldn't be done as patient has pacer. -Neuro eval, Ammonia level 21 on 11/30 Resp: Acute respiratory failure - - Extubated 11/24/17 Reintubated 12/03 Continue with vent support keep sat >92% Bronchodilators, ICU vent bundle. Check CXR and ABG post intubation CVS: Bilateral upper extremity ischemia - s/p L UE bypass Reconsult plastics/hand for necrotic digit Monitor HR and BP keep MAP>65mmHg - Midodrine 10 mg every 8 hours - Continue aspirin Plavix GI: - Large-volume ascites removed 11/22/17 - On Protonix for GI prophylaxis -Continue with tube feeds- Nepro with goal rate 55ml/hr : End-stage renal disease - Hemodialysis per nephrology - PermCath placement 11/21 -Monitor renal function, avoid nephrotoxins Heme: Monitor CBC, on Epogen with HD Endo: Diabetes mellitus Hypothyroidism -SSI ( medium scale) for glycemic control -On Synthroid 200mcg daily, TSH 9.7 on 11/30 ID: Bacteremia Sepsis (Enterobacter bacteremia, BC 10/16) Possible left femoral line site infection - Antibiotics per ID (Rocephin switched to Zosyn, Micafungin and i1 dose Vanco given) monitor for signs of infections ( Fever, WBC) DVT GI prophylaxis - Teds SCDs - Subcutaneous heparin - Pepcid Lines: peripheral IV's Level 3 Fabiola Taylor MD Dec 03, 2017 11:17
[2017-12-03] MEDS: RESP: ALBUTEROL 2.5 MG/IPRATROPIUM 0.5 MG NEB (SCH) NEB ×3 (11:44→20:11)
--- NOTE | 2017-12-03 11:48 | RADRPT ---
EXAM DATE/TIME: 12/03/2017 11:33 [place] COMPARISON: CHEST SINGLE AP, December 02, 2017, 18:51. INDICATIONS : Respiratory failure. MEDICAL HISTORY : Myocardial infarction. Congestive heart failure. Hypothyroidism. SURGICAL HISTORY : CABG. Pacemaker. ENCOUNTER: Subsequent ACUITY: 2 weeks PAIN SCORE: Non-responsive. LOCATION: Bilateral chest FINDINGS: Persistent consolidative opacity in the medial right lower lung and patchy areas of mixed interstitia l and alveolar infiltrate in the right upper and left lower lung. The heart is mildly enlarged, agapito lar in configuration. Cardiac pacer leads, gastric tube, and double-lumen central line stable. Inte rval intubation with ET tube tip well above the aleida. CONCLUSION: 1. ET tube tip in good position. 2. Stable configuration of the right lower lung consolidative and right upper and left lower lung mix ed infiltrates. Iván Goodman MD on December 03, 2017 at 11:45 Board Certified Radiologist. This report was verified electronically.
[2017-12-03] MEDS: PANTOPRAZOLE SODIUM 40 MG VIAL IV PUSH SCH (12:00)
--- NOTE | 2017-12-03 12:28 | HHI.IDPN ---
Subjective Subjective Remarks Patient is a 67-year-old male, has been at [facility] for the last 15 days, transferred to [facility] for vascular evaluation. Patient has known end-stage renal disease and gets hemodialysis every Sunday and Sunday. He had a left upper extremity AV fistula, and it had some problem, so he underwent left upper extremity access revision, left upper extremity distal revascularization and interval ligation, last August 07, 2017. He was discharged, and apparently the fistula was working okay, and during that admission also he had that left middle finger dry gangrene which was felt to be ischemic in nature due to steal syndrome. As an outpatient, his fistula apparently stopped working, so he had a permacath placed in his right IJ. Patient stated that he's had problem on and off with low blood pressure for the last 4 months. The hypotension were getting worse and he ended up getting admitted at [facility] where he stayed for at least 15 days. During that admission, he had some positive blood culture done on November 05 that grew Enterobacter cloaca. Blood culture from November 07 were negative. His permacath was removed on November 07 and the culture of that was negative. Patient was apparently getting IV cefepime, and there was an infectious disease specialist monitoring him for his infection. Patient stated that he's had some reaction to the cefepime and he describes it as burning sensation. Patient is currently afebrile. There was evaluation of his AV fistula which shows thrombosis of his DRIL. He has now been transferred to [facility] for vascular evaluation. Infectious disease consultation has been requested to evaluate for sepsis. Notes reviewed D/W RN Remains lethargic this weekend This morning, unresponsive and now intubated Temps also high overnight BP ok For HD today Repeat BC negative CXR seems to have increased opacity on R side Antibiotics Current Medications Medications (Trade) Dose Ordered Sig/Renny Route Start Time Stop Time Status Last Admin (NS Flush) 2 ml BID IV FLUSH 11/12/17 21:00 12/03/17 11:01 (Tylenol) 650 mg Q4H PRN PO 11/12/17 20:00 12/02/17 21:34 (Zofran Inj) 4 mg Q6H PRN IVP 11/12/17 20:00 (Narcan Inj) 0.4 mg UNSCH PRN IV PUSH 11/12/17 20:00 (Senokot) 17.2 mg Q12H PRN PO 11/12/17 20:00 (D50w (Vial) Inj) 50 ml UNSCH PRN IV PUSH 11/12/17 23:30 (Glucagon Inj) 1 mg UNSCH PRN OTHER 11/12/17 23:30 (Phoslo) 667 mg TID PO 11/13/17 09:00 12/03/17 12:15 (Ecotrin Ec) 162 mg DAILY PO 11/13/17 09:00 12/03/17 10:57 (Plavix) 75 mg DAILY PO 11/13/17 09:00 Future hold 12/03/17 10:58 (Baciguent Oint) 1 applic Q12HR TOPICAL 11/13/17 21:00 12/03/17 11:04 Sodium Chloride 1,000 ml @ 0 mls/hr Q0M PRN OTHER 11/13/17 14:09 11/23/17 11:30 (Heparin Inj) 8,000 units UNSCH PRN IV FLUSH 11/13/17 14:15 11/15/17 15:23 Sodium Chloride 1,000 ml @ 200 mls/hr Q5H PRN IV 11/13/17 14:09 11/26/17 07:15 Sodium Chloride 1,000 ml @ 0 mls/hr Q0M PRN OTHER 11/13/17 14:09 (Mannitol Inj) 12.5 gm UNSCH PRN IV 11/13/17 14:15 11/17/17 11:53 Albumin Human 100 ml @ 60 mls/hr UNSCH PRN IV 11/13/17 14:15 11/30/17 08:48 (NS Flush) 5 ml UNSCH PRN IV FLUSH 11/13/17 14:15 (Heparin Inj) UNSCH PRN .XX 11/13/17 14:15 11/30/17 10:37 (Gentamicin Inj) 20 mg UNSCH PRN OTHER 11/13/17 14:15 11/30/17 10:38 (Zofran Inj) 4 mg UNSCH PRN IV PUSH 11/13/17 14:15 (Tylenol) 650 mg UNSCH PRN PO 11/13/17 14:15 11/18/17 08:40 (Benadryl) 25 mg UNSCH PRN PO 11/13/17 14:15 (Nitrostat Sl) 0.4 mg UNSCH PRN SL 11/13/17 14:15 (Catapres) 0.1 mg UNSCH PRN PO 11/13/17 14:15 (Epogen Inj) 4,000 units UNSCH PRN IV PUSH 11/13/17 14:15 11/30/17 10:38 (Gelfoam 12 Mm/7 Mm Top) 1 foam UNSCH PRN TOP 11/13/17 14:15 Ceftriaxone Sodium 2000 mg/ Sodium Chloride 100 ml @ 200 mls/hr Q24H IV 11/13/17 16:00 12/02/17 16:54 (Coreg) 3.125 mg BID PO 11/16/17 21:00 Future Hold 11/22/17 08:37 (Neurontin) 100 mg TID PO 11/20/17 18:00 Future Hold 11/25/17 18:34 (Mart Thyroid) 60 mg BID PO 11/20/17 21:00 12/02/17 21:34 (Roxicodone) 5 mg Q4H PRN PO 11/20/17 15:15 (Dilaudid) 2 mg Q4H PRN PO 11/20/17 15:15 (Morphine Inj) 2 mg Q1H PRN IV PUSH 11/20/17 15:15 (Marleny-Colace) 1 tab BID PO 11/20/17 21:00 12/03/17 10:57 (Milk Of Magnesia Liq) 30 ml Q12H PRN PO 11/20/17 15:15 (Senokot) 17.2 mg Q12H PRN PO 11/20/17 15:15 (Dulcolax Supp) 10 mg DAILY PRN RECTAL 11/20/17 15:15 (Lactulose Liq) 30 ml DAILY PRN PO 11/20/17 15:15 Propofol 100 ml @ 2.841 mls/ hr TITRATE PRN IV 11/20/17 16:00 Future Hold 11/22/17 03:36 (Brethine Inj) 1 mg UNSCH PRN SQ 11/20/17 17:30 (NS Flush) 5 ml UNSCH PRN IV FLUSH 11/20/17 17:45 (Heparin Inj) 2,000 units UNSCH PRN IV FLUSH 11/20/17 17:45 (Duoneb Neb) 1 ampule Q4HR NEB PRN NEB 11/21/17 08:45 12/03/17 07:13 (Mycostatin Cream) 1 applic Q12HR TOPICAL 11/24/17 14:00 12/03/17 11:04 (Heparin Inj) 5,000 units Q12HR SQ 11/26/17 21:00 12/03/17 10:59 (Tylenol) 500 mg Q6H PRN PO 11/27/17 16:30 (Gentamicin Opht 0.3% Soln) 1 drop Q4HR EACH EYE 11/29/17 16:00 12/03/17 12:18 (Proamatine) 10 mg Q8HR PO 11/30/17 00:00 12/03/17 12:16 (Brethine Inj) 1 mg UNSCH PRN SQ 11/29/17 22:30 (Synthroid) 200 mcg DAILY@0600 PO 12/01/17 06:00 12/03/17 06:00 (NovoLOG SUPPLEMENTAL SCALE) 1 Q4H SQ 12/03/17 13:00 12/03/17 12:16 (Duoneb Neb) 1 ampule Q6HR NEB NEB 12/03/17 11:15 12/03/17 11:44 Fentanyl Citrate 250 ml @ 5 mls/hr TITRATE PRN IV 12/03/17 11:15 (Protonix Inj) 40 mg Q24H IV PUSH 12/03/17 12:00 Lines Permacath site ok. Past Medical History ESRD DM CAD HF. HTN Enlarged liver, and ascites Past Surgical History Pacemaker CABGx4 with mitral valvuloplasty in february 2005 Right fifth toe amputation Right shoulder rotator cuff repair Has had repeated paracentesis to drain his ascites Allergies: Coded Allergies: adhesive (Unverified Adverse Reaction, Severe, SKIN BREAKDOWN/ULCERS, ) Uncoded Allergies: MSG (Allergy, Intermediate, bowel problems, 08/02/17) Objective . Vital Signs Date Time Temp Pulse Resp B/P (MAP) Pulse Ox O2 Delivery O2 Flow Rate FiO2 12/03/17 11:45 100 50 12/03/17 09:56 100 100 12/03/17 07:14 92 Nasal Cannula 5.00 12/03/17 07:00 97 Nasal Cannula 5.00 12/03/17 07:00 96 2/19/18 07:00 97.9 96 28 97/97 (97) 90 12/03/17 03:00 96 12/03/17 03:00 99.2 96 18 103/50 (67) 97 12/03/17 03:00 97 Nasal Cannula 2.00 Non-Rebreather 12/02/17 23:00 100.0 97 20 92/46 (61) 98 12/02/17 23:00 96 12/02/17 23:00 99 Nasal Cannula 3.00 Non-Rebreather 12/02/17 20:40 94 Nasal Cannula 2.00 12/02/17 20:23 95 Nasal Cannula 4.00 12/02/17 20:00 98 Venturi Mask 6.00 50 12/02/17 19:00 100.4 97 22 110/65 (80) 100 12/02/17 19:00 100 Nasal Cannula 12.00 Non-Rebreather 12/02/17 19:00 97 12/02/17 15:14 98 Nasal Cannula 3.00 12/02/17 15:10 98.2 96 18 96/48 (64) 99 12/02/17 15:00 95 12/03/17 12/03/17 12/04/17 15:00 23:00 07:00 Output Total 0 ml Balance 0 ml Output Urine Total 0 ml Gastric Drainage Total 0 ml # Bowel Movements 1 . Laboratory Tests Test 12/02/17 06:11 12/03/17 04:09 White Blood Count 10.8 TH/MM3 14.3 TH/MM3 Red Blood Count 2.80 MIL/MM3 3.25 MIL/MM3 Hemoglobin 8.5 GM/DL 9.6 GM/DL Hematocrit 26.9 % 31.0 % Mean Corpuscular Volume 96.4 FL 95.2 FL Mean Corpuscular Hemoglobin 30.2 PG 29.5 PG Mean Corpuscular Hemoglobin Concent 31.4 % 31.0 % Red Cell Distribution Width 17.9 % 17.4 % Platelet Count 183 TH/MM3 160 TH/MM3 Mean Platelet Volume 9.7 FL 9.4 FL CBC Comment AUTO DIFF Differential Total Cells Counted 100 Neutrophils % (Manual) 63 % Band Neutrophils % 21 % Lymphocytes % 5 % Monocytes % 10 % Eosinophils % 1 % Neutrophils # (Manual) 9.1 TH/MM3 Differential Comment FINAL DIFF MANUAL Toxic Granulation 2+ Platelet Estimate NORMAL Platelet Morphology Comment NORMAL Ovalocytes 1+ Laboratory Tests Test 12/02/17 06:11 12/03/17 04:09 Blood Urea Nitrogen 21 MG/DL 24 MG/DL Creatinine 5.48 MG/DL 6.04 MG/DL Random Glucose 178 MG/DL 127 MG/DL Total Protein 5.4 GM/DL Albumin 2.7 GM/DL Calcium Level 9.0 MG/DL 9.5 MG/DL Phosphorus Level 3.4 MG/DL Magnesium Level 2.3 MG/DL 2.3 MG/DL Alkaline Phosphatase 159 U/L Aspartate Amino Transf (AST/SGOT) 12 U/L Alanine Aminotransferase (ALT/SGPT) 7 U/L Total Bilirubin 0.5 MG/DL Sodium Level 139 MEQ/L 140 MEQ/L Potassium Level 4.1 MEQ/L 4.2 MEQ/L Chloride Level 98 MEQ/L 99 MEQ/L Carbon Dioxide Level 25.2 MEQ/L 28.3 MEQ/L Anion Gap 16 MEQ/L 13 MEQ/L Estimat Glomerular Filtration Rate 11 ML/MIN 9 ML/MIN Imaging Chest X-Ray 11/28/17 0600 Signed Impressions: Service Date/Time: Tuesday, November 28, 2017 03:20 - CONCLUSION: No significant change has occurred. Billy Person MD Head CT 11/26/17 0000 Signed Impressions: Service Date/Time: Sunday, November 26, 2017 15:27 - CONCLUSION: Negative acute process.. Meir Oden MD FACR Cyst Biopsy Asp-Paracentesis US 11/22/17 0000 Signed Impressions: Service Date/Time: November 15:20 - CONCLUSION: Uncomplicated ultrasound guided paracentesis. 6 L of chylous appearing fluid was removed. Taj Oden MD Catheter Placement X-Ray 11/21/17 1554 Signed Impressions: Service Date/Time: Tuesday, November 21, 2017 11:42 - CONCLUSION: Uncomplicated PermaCath placement as above. James Mike MD Lower Extremity Ultrasound 11/13/17 0000 Signed Impressions: Service Date/Time: Monday, November 13, 2017 07:52 - CONCLUSION: No DVT seen in either leg. Jewel Kaiser MD Hand X-Ray 11/13/17 0000 Signed Impressions: Service Date/Time: Monday, November 13, 2017 10:18 - CONCLUSION: Osteoporosis. Extensive arterial calcifications. 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 No definite evidence of bony destruction or osteomyelitis Jared Upton MD Physical Exam GENERAL: Sedated on the vent, NAD SKIN: Cool and dry. No rash. Edematous EYES: [place] conjunctiva. No petechia or hemorrhage. No scleral icterus. EARS, NOSE AND THROAT: Orally intubated NECK: Trachea midline, supple and not tender CARDIOVASCULAR: Regular rate and rhythm. Has systolic murmur over L precordium and base of the heart RESPIRATORY: Decreased at both bases, coares eBS ABDOMEN: Soft, and bowel sounds present and hypoactive. No reaction to palpation. EXTREMITIES: No clubbing, cyanosis. Has edema of both feet and UE. Dry gangrene noted. Incision LUE dry, no redness NEUROLOGICAL: sedated LINES: No evidence of infection Assessment & Plan Remarks IMPRESSION Progressive decline in mental status Possible new sepsis, had fevers last 24 hours Septic Thrombophlebitis: Enterobacter Enterobacter bacteremia, BC 11/05 (+), ?source - permacath C/S negative (?due to previous Abx) - concern with infected thrombus LUE AVF - ?other endovascular focus Thrombosis DRIL LUE AVF S/P Bypass LUE and ligation of AVF and DRIL ESRD on HD MWF Ascites, ?primary liver problem or other etiology LMF dry gangrene Encephalopathy, ?metabolic RECOMMENDATION 2 BC Sputum G/S C/S Change IV Rocephin to ZOsyn Give dose of vancomycin Add Micafungin ?Brain MRI Follow new C/S Follow temps Monitor progress D/W Loraine Harris MD Dec 03, 2017 12:28
[2017-12-03] MEDS ORDERED: VANCOMYCIN INJ 1,000 MG in SODIUM CHLOR 0.9% 250 ML INJ 250 ML IV ONE (13:30)
[2017-12-03] MEDS ORDERED: SODIUM CHLOR 0.9% 250 ML INJ 250 ML IV ONE ×3 (14:00→15:00)
[2017-12-03] MEDS: MICAFUNGIN INJ 100 MG in SODIUM CHLORIDE 0.9% INJ 100 ML IV SCH (14:22)
[2017-12-03] MEDS: PIPERACIL-TAZO 2.25 GM PREMIX 50 ML IV SCH ×2 (14:43→21:44)
[2017-12-03] MEDS: THYROID 60 MG TAB PO SCH ×2 (16:00→21:42)
[2017-12-03] MEDS: SODIUM CHLOR 0.9% 1000 ML INJ 1,000 ML OTHER PRN (18:45)
[2017-12-03] MEDS: EPOETIN ALFA 10,000 UNITS/ML VIAL IV PUSH PRN (18:46)
[2017-12-03] MEDS: ALBUMIN 25% INJ 100 ML IV PRN (18:46)
[2017-12-03] MEDS: GENTAMICIN SULFATE 20 MG/2 ML VIAL OTHER PRN (18:47)
[2017-12-03] MEDS: HEPARIN SODIUM - IV 10,000 UNITS/10 ML VIAL PRN (18:48)
--- NOTE | 2017-12-03 19:12 | HHI.NPPN ---
Subjective History of Present Illness Patient is a 67-year-old male with a history of end-stage renal disease on hemodialysis Sunday/Sunday/ Sunday, diabetes, CAD, CHF, hypertension was transferred from [facility] to be evaluated by vascular surgery. Patient states he was admitted to [facility] because he had low blood pressure readings at home. AV fistula has not been functioning or used for 6- 8 weeks and they have been using a permacath for dialysis. Permacath has been removed secondary to possible infection and vas cath has been placed. He has been treated with cefepime IV. Last dialysis was Sunday and 1.5 L removed. Patient has a necrotic left middle finger that patient states has been going on for the last 12 weeks. Additional Remarks Patient is now intubated, and sedated. Review of Systems Genitourinary Remarks Objective Data Data 12/03/17 12/04/17 19:00 07:00 Intake Total 1295 ml Output Total 0 ml Balance 1295 ml IV Total 650 ml Tube Feeding 545 ml Tube Irrigant 100 ml Output Urine Total 0 ml Gastric Drainage Total 0 ml # Bowel Movements 2 Vital Signs Date Time Temp Pulse Resp B/P (MAP) Pulse Ox O2 Delivery O2 Flow Rate FiO2 12/03/17 16:42 70 9 94/53 (67) 100 12/03/17 16:31 70 17 82/45 (57) 91 12/03/17 16:01 98.0 71 19 113/58 (76) 100 12/03/17 15:30 70 19 104/55 (71) 100 12/03/17 15:00 68 20 97/51 (66) 100 12/03/17 14:30 66 20 93/54 (67) 99 12/03/17 14:25 100 50 12/03/17 14:01 67 21 98/52 (67) 100 12/03/17 13:30 74 17 89/50 (63) 100 12/03/17 13:00 86 15 84/48 (60) 100 12/03/17 12:30 93 17 89/51 (64) 100 12/03/17 12:12 93 8 91/50 (64) 100 12/03/17 12:00 99.1 93 4 85/48 (60) 100 12/03/17 11:45 100 50 12/03/17 11:31 86 14 95/49 (64) 100 12/03/17 11:00 94 27 91/51 (64) 100 12/03/17 10:30 90 23 99/54 (69) 100 12/03/17 10:15 96 7 95/50 (65) 100 12/03/17 09:56 100 100 12/03/17 07:14 92 Nasal Cannula 5.00 12/03/17 07:00 97 Nasal Cannula 5.00 12/03/17 07:00 96 12/03/17 07:00 97.9 96 28 97/97 (97) 90 12/03/17 03:00 96 12/03/17 03:00 99.2 96 18 103/50 (67) 97 12/03/17 03:00 97 Nasal Cannula 2.00 Non-Rebreather 12/02/17 23:00 100.0 97 20 92/46 (61) 98 12/02/17 23:00 96 12/02/17 23:00 99 Nasal Cannula 3.00 Non-Rebreather 12/02/17 20:40 94 Nasal Cannula 2.00 12/02/17 20:23 95 Nasal Cannula 4.00 12/02/17 20:00 98 Venturi Mask 6.00 50 -: 12/03/17 0409 12/03/17 0409 Microbiology 12/03/17 Aerobic Blood Culture, Received Pending 12/03/17 Anaerobic Blood Culture, Received Pending 12/03/17 Aerobic Blood Culture, Received Pending 12/03/17 Anaerobic Blood Culture, Received Pending 12/03/17 Gram Stain, Received Pending 12/03/17 Sputum Culture, Received Pending Tubes & Lines: Perma-Cath Physical Exam General Appearance Remarks intubated, and sedated. Eyes Eye Exam: Pupils Equal Throat Throat Exam: Oral Mucosa [place] & Moist Pulmonary Resp Exam: Breath Sounds Equal, No Distress, Rhonchi, Decreased Bases Cardiology CV Exam: Regular Gastrointestinal/Abdomen GI Exam: Soft, Non-Tender, Bowel Sounds Present Extremeties Extremities Exam: Moderate Edema (Left arm and hand swelling.) Neurologic Neuro Exam: Sedated Assessment/Plan Discussed Condition With: Spouse Assessment Summary: End Stage Renal Disease Problem List: (1) ESRD (end stage renal disease) on dialysis ICD Codes: N18.6 - End stage renal disease; Z99.2 - Dependence on renal dialysis Plan: Dialysis MWF s/p L UE bypass 2/6 ligation of AVF and DRIL Anemia Epogen with dialysis Post Paracentesis done 11/22/17. Now intubated after having respiratory distress. BP is stable, HD is due today. ID is following, now on Zosyn, Vanco. and Micafungin. (2) Gangrene of finger of left hand ICD Codes: I96 - Gangrene, not elsewhere classified Plan: necrotic area on left hand middle finger (3) AV fistula occlusion ICD Codes: T82.898A - Other specified complication of vascular prosthetic devices, implants and grafts, initial encounter Plan: s/p L UE bypass 2/6 ligation of AVF and DRIL (4) Diabetes mellitus ICD Codes: E11.9 - Type 2 diabetes mellitus without complications Plan: Maintain BS between 140mg/dl to 180 mg/dl Kim Santos MD Dec 03, 2017 19:12
--- NOTE | 2017-12-03 22:14 | MG ---
cc: LUZ CRAVEN M.D. Lab No: Date: 12/03/2017 Age: Sex: M Race: INTRODUCTION An EEG was obtained on this 67-year-old being evaluated for decreased responsiveness. The patient is intubated. No apparent sedation. DESCRIPTION This EEG is showing generalized attenuation, intermixed with theta and delta rhythms of mid to high amplitude and there are triphasic discharges maximum in the anterior head regions. At times there is some artifact. Background is poorly reactive and there is a lack of faster rhythms. There are no ictal discharges. Photic stimulation was unremarkable. Deep tactile stimulation does not show any overt change. Some right leg mild jerking movement is not associated with any paroxysmal discharge. INTERPRETATION Moderate to severe EEG abnormality because of generalized slowing, intermittent episodes of attenuation and triphasic activity. The findings are most compatible with a severe metabolic encephalopathy. No ictal or seizure type of discharge present. MD RUDDY Hinojosa/CHINO /6:46 PM /10:05 PM
--- NOTE | 2017-12-03 22:24 | MB ---
cc: LUZ CRAVEN M.D. DATE OF CONSULTATION 12/03/2017 HISTORY This 67-year-old seen in neurological consultation in the intensive care unit. The patient has been in the hospital since November 12 when he came in for vascular surgical evaluation in regards to fistula for his hemodialysis. He apparently had a fistula that was not working and had a new procedure and he has not regained his level of neurological functions ever since. He was initially intubated and he was extubated at about 2/10 and has had some intermittent decreased responsiveness. Today he became poorly responsive and was reintubated. An EEG was done and I reviewed this. A CT brain on 11/26 and 11/30 were negative. He cannot have MRI due to a pacer. NEUROLOGICAL EXAMINATION Exam showed the patient to be on the ventilator but not sedated and responded to some stimuli. He did grimace and at times he might be responding to simple commands as he did move the toes but unclear if this was voluntary or just any involuntary movements as he also has some involuntary movements of the legs which is very mild perhaps right more than left. He did not cra to request. His reflexes were absent throughout and plantar responses none. The pupils were reactive and slightly irregular. The eyes were in primary position. LABORATORY DATA The recent labs were seen, chemistry shows BUN 24, creatinine 6.0, glucose 127, sodium 140. Calcium normal 9.5. The CBC today showed white count 14.3 which is a rise from 10.8 yesterday and 6.2 on 11/28. Hemoglobin 9.6, platelets 160. ASSESSMENT Encephalopathy. This is probably metabolic / infectious related. I do not think there is a primary intracranial infectious process. Probably septic and he is followed by multiple physicians. I will look at the EEG that was just completed. I will follow the neurological course. Thank you for asking us to assist in his care. MD RUDDY Hinojosa/KK /4:52 PM /10:12 PM
--- NOTE | 2017-12-03 23:03 | EKG ---
Date Performed: 12/02/2017 Time Performed: 19:04:20 PTAGE: 67 years EKG: Demand pacing. Pacemaker rhythm - no further analysis Abnormal ECG PREVIOUS TRACING : 11/13/2017 10.37 DOCTOR: Lucia Dexter Interpretating Date/Time 12/03/2017 22:55:09
[2017-12-04] VITALS (70 sets, daily range): BP systolic 60–110; BP diastolic 34–59; PULSE 78–100; RESP 4–27; TEMP 97.9–101.6; O2SAT 97–100
[2017-12-04] MEDS: GENTAMICIN SULFATE 0.3% OPHT SOLN 5 ML BTL EACH EYE SCH ×5 (03:43→21:00)
[2017-12-04] MEDS: RESP: ALBUTEROL 2.5 MG/IPRATROPIUM 0.5 MG NEB (SCH) NEB ×4 (04:36→19:19)
[2017-12-04 05:10] LABS: HEMATOCRIT 27.3 % (39.0-51.0); HEMOGLOBIN 8.8 GM/DL (13.0-17.0); MEAN CELL VOLUME 94.3 FL (80.0-100.0); MEAN CORPUSCULAR HEMOGLOBIN 30.2 PG (27.0-34.0); MEAN PLATELET VOLUME 10.3 FL (7.0-11.0); PLATELET COUNT 143 TH/MM3 (150-450); RED CELL DISTRIBUTION WIDTH 16.8 % (11.6-17.2); WHITE BLOOD COUNT 13.7 TH/MM3 (4.0-11.0)
[2017-12-04] MEDS: INSULIN ASPART SUPPLEMENTAL SCALE SQ SCH ×5 (05:28→22:22)
[2017-12-04] MEDS: PIPERACIL-TAZO 2.25 GM PREMIX 50 ML IV SCH ×3 (05:28→22:22)
[2017-12-04] MEDS: LEVOTHYROXINE SODIUM 200 MCG TAB PO SCH (05:28)
[2017-12-04] MEDS: MIDODRINE 5 MG TAB PO SCH ×3 (05:28→20:58)
--- NOTE | 2017-12-04 07:56 | HHI.CCPN ---
Subjective Remarks/Hospital Course 67-year-old male, has been at [facility] for the last 15 days, transferred to [facility] for vascular evaluation. Patient has known end-stage renal disease and gets hemodialysis every Sunday and Sunday. He had a left upper extremity AV fistula, and it had some problem, so he underwent left upper extremity access revision, left upper extremity distal revascularization and interval ligation, last August 07, 2017. He was discharged, and apparently the fistula was working okay, and during that admission also he had that left middle finger dry gangrene which was felt to be ischemic in nature due to steal syndrome. As an outpatient, his fistula apparently stopped working, so he had a permacath placed in his right IJ. Patient stated that he's had problem on and off with low blood pressure for the last 4 months. The hypotension were getting worse and he ended up getting admitted at [facility] where he stayed for at least 15 days. During that admission, he had some positive blood culture done on November 05 that grew Enterobacter cloaca. Blood culture from November 07 were negative. His permacath was removed on November 07 and the culture of that was negative. Patient underwent L UE bypass brachial-brachial and ligation of the AV fistula. Is scheduled for permacath placement tomorrow morning and remains in the ICU sedated and intubated. Subjective: 11/21: Afebrile .The patient remains intubated and sedated. Plan for permacath placement this a.m.. Will resume ventilator weaning postoperatively. 11/22: Attempted CPAP trials postoperatively yesterday, unsuccessful. Patient continues on phenylephrine currently a 60 mics/minute. Propofol discontinued Precedex infusion initiated CPAP trials are reinitiated this a.m. with plans for SBT later this morning and possible extubation. 11/23: Getting HD. Patient is awake, but very weak. On CPAP but requiring high pressure support 20. Had US guided paracentesis yesterday with 6L fluid removed- chylous. Remains on Precedex and remains on Shon-Synephrine at 60 mcg/min increased to 100 mcg/min 11/24: Remains intubated off all sedation. Requiring Shon-Synephrine at 80 mcg/ min to keep map above 65. HD with 2L removed. Left groin central line was removed and right groin hemodialysis catheter was removed yesterday 11/23/17. New right IJ central line placed yesterday 11/25: Extubated yesterday tolerating well respiratory harris. Remains on Shon- Synephrine to maintain map above 65. Cultures remain negative. Patient intermittently not cooperative with care. He is oriented 2 11/26: At around 2 AM today had episode of unresponsiveness, correlating with hypotension was hard to awake. Currently patient is awake but very lethargic voice is very soft but oriented to person and place. I will hold the Neurontin avoid all sedation currently on Shon-Synephrine at 30 mcg/min. completed hemodialysis today with 3L removed 11/27: Mentation and alertness seems to be slightly improved. TSH elevated at 8.8, increase Synthroid to 150 mcg per day. Patient is oriented to person and place. Remains very weak 11/28: Somnolent but wakes up easily, remains oriented to person. Chest x-ray unchanged. No evidence of new weakness. Discussed with Dr. Jansen 12/03 Reconsult: Patient was found unresponsive he was subsequently intubated and placed on mechanical ventilation. T:100.4 last night. 12/04: Remains encephalopathic, orally intubated on mechanical ventilation. Objective Vital Signs Date Time Temp Pulse Resp B/P (MAP) Pulse Ox O2 Delivery O2 Flow Rate FiO2 12/04/17 06:00 99 12/04/17 04:38 100 40 12/04/17 04:00 98.0 21 87/48 (61) 12/03/17 07:14 Nasal Cannula 5.00 Intake and Output 12/04/17 12/04/17 12/05/17 08:00 16:00 00:00 Intake Total 664 ml Balance 664 ml Result Diagram: 12/04/17 0335 12/03/17 0409 Imaging Last Impressions Chest X-Ray 12/02/17 0000 Signed Impressions: Service Date/Time: Saturday, December 02, 2017 18:51 - CONCLUSION: Stable chest x-ray with diffuse right lung airspace consolidation and small right pleural effusion. A mild airspace opacity is present at the left lung base. Sami Deng MD Head CT 11/30/17 0000 Signed Impressions: Service Date/Time: Thursday, November 30, 2017 22:05 - CONCLUSION: 1. No acute findings. No significant change. Uzair Berrios MD Abdomen X-Ray 11/29/17 0000 Signed Impressions: Service Date/Time: November 16:03 - CONCLUSION: NG tube tip extends into the duodenum Sami Burnett MD Cyst Biopsy Asp-Paracentesis US 11/22/17 0000 Signed Impressions: Service Date/Time: November 15:20 - CONCLUSION: Uncomplicated ultrasound guided paracentesis. 6 L of chylous appearing fluid was removed. Taj Oden MD Catheter Placement X-Ray 11/21/17 1554 Signed Impressions: Service Date/Time: Tuesday, November 21, 2017 11:42 - CONCLUSION: Uncomplicated PermaCath placement as above. James Mike MD Lower Extremity Ultrasound 11/13/17 0000 Signed Impressions: Service Date/Time: Monday, November 13, 2017 07:52 - CONCLUSION: No DVT seen in either leg. Jewel Kaiser MD Hand X-Ray 11/13/17 0000 Signed Impressions: Service Date/Time: Monday, November 13, 2017 10:18 - CONCLUSION: Osteoporosis. Extensive arterial calcifications. 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 No definite evidence of bony destruction or osteomyelitis Jared Upton MD Procedures 11/20 Sp LUE angiogram. 11/21 permacath placement Objective Remarks GENERAL: Patient is 67 yo intubated SKIN: Warm and dry. HEAD: Normocephalic. EYES: No scleral icterus. No injection or drainage. NECK: Supple, trachea midline. No JVD or lymphadenopathy. CARDIOVASCULAR: Regular rate and rhythm without murmurs, gallops, or rubs. RESPIRATORY: Breath sounds equal bilaterally. No accessory muscle use. GASTROINTESTINAL: Abdomen soft, non-tender, nondistended. MUSCULOSKELETAL: No cyanosis, or edema. BACK: Nontender without obvious deformity. No CVA tenderness. Neuro: Intubated, encephalopathic, not following commands. A/P Assessment and Plan Neuro: Metabolic encephalopathy -Off all sedation since yesterday. Monitor neuro status - CT head 11/26 and 11/30 negative -Check EEG, MRI brain couldn't be done as patient has pacer. -Neuro eval, Ammonia level 21 on 11/30 - Suspected metabolic encephalopathy Resp: Acute respiratory failure - - Extubated 11/24/17 Reintubated 12/03 Continue with vent support keep sat >92% Bronchodilators, ICU vent bundle. Check CXR and ABG post intubation CVS: Hypotension Bilateral upper extremity ischemia - s/p L UE bypass Reconsult plastics/hand for necrotic digit Monitor HR and BP keep MAP>65mmHg - Midodrine 10 mg every 8 hours - Continue aspirin Plavix - NS 250 cc bolus ordered on 12/04 for hypotension GI: - Large-volume ascites removed 11/22/17 - On Protonix for GI prophylaxis -Continue with tube feeds- Nepro with goal rate 55ml/hr : End-stage renal disease - Hemodialysis per nephrology - PermCath placement 11/21 -Monitor renal function, avoid nephrotoxins Heme: Monitor CBC, on Epogen with HD Endo: Diabetes mellitus Hypothyroidism -SSI ( medium scale) for glycemic control -On Synthroid 200mcg daily, TSH 9.7 on 11/30 ID: Bacteremia Sepsis (Enterobacter bacteremia, BC 10/16) Possible left femoral line site infection - Antibiotics per ID (Rocephin switched to Zosyn, Micafungin and i1 dose Vanco given) monitor for signs of infections ( Fever, WBC) DVT GI prophylaxis - Teds SCDs - Subcutaneous heparin - Pepcid Lines: peripheral IV's Condition critical with hypotension secondary to sepsis. Time spent on critical care excluding procedures 30 minutes Yobany Banks MD Dec 04, 2017 07:56
[2017-12-04 08:04] LABS: BANDS 23 % (0-6); LYMPHOCYTES 3 % (9-44); METAMYELOCYTES 1 % (0-1); MONOCYTES 11 % (0-8); NEUTROPHIL # MANUAL DIFF 11.6 TH/MM3 (1.8-7.7); POLYS (SEG NEUTROPHILS) 61 % (16-70)
[2017-12-04] MEDS ORDERED: SODIUM CHLOR 0.9% 250 ML INJ 250 ML IV ONE (08:30)
[2017-12-04] MEDS: CLOPIDOGREL 75 MG TAB PO SCH (08:36)
[2017-12-04] MEDS: CALCIUM ACETATE 667 MG CAP PO SCH ×3 (08:36→16:38)
[2017-12-04] MEDS: THYROID 60 MG TAB PO SCH ×2 (08:36→20:59)
[2017-12-04] MEDS: ACETAMINOPHEN 325 MG TAB PO PRN (08:36)
[2017-12-04] MEDS: ASPIRIN EC 81 MG TABEC PO SCH (08:36)
[2017-12-04] MEDS: SODIUM CHLORIDE 0.9% FLUSH 10 ML FLUSH IV FLUSH SCH ×2 (08:37→20:59)
[2017-12-04] MEDS: NYSTATIN 100,000 UNIT/GM CREAM 15 GM TOPICAL SCH ×2 (08:38→21:03)
[2017-12-04] MEDS: BACITRACIN TOP OINT 15 GM TUBE TOPICAL SCH ×2 (08:38→21:01)
[2017-12-04] MEDS: DOCUSATE SODIUM 50 MG/SENNA 8.6 MG TAB PO SCH ×2 (08:39→20:59)
[2017-12-04] MEDS: HEPARIN SODIUM - SQ 10,000 UNITS/ML VIAL SQ SCH ×2 (08:39→20:59)
[2017-12-04] MEDS ORDERED: TERBUTALINE INJ 1 MG/ML AMP SQ PRN (09:15)
--- NOTE | 2017-12-04 09:31 | HHI.IDPN ---
Subjective Subjective Remarks Patient is a 67-year-old male, has been at [facility] for the last 15 days, transferred to [facility] for vascular evaluation. Patient has known end-stage renal disease and gets hemodialysis every Sunday and Sunday. He had a left upper extremity AV fistula, and it had some problem, so he underwent left upper extremity access revision, left upper extremity distal revascularization and interval ligation, last August 07, 2017. He was discharged, and apparently the fistula was working okay, and during that admission also he had that left middle finger dry gangrene which was felt to be ischemic in nature due to steal syndrome. As an outpatient, his fistula apparently stopped working, so he had a permacath placed in his right IJ. Patient stated that he's had problem on and off with low blood pressure for the last 4 months. The hypotension were getting worse and he ended up getting admitted at [facility] where he stayed for at least 15 days. During that admission, he had some positive blood culture done on November 05 that grew Enterobacter cloaca. Blood culture from November 07 were negative. His permacath was removed on November 07 and the culture of that was negative. Patient was apparently getting IV cefepime, and there was an infectious disease specialist monitoring him for his infection. Patient stated that he's had some reaction to the cefepime and he describes it as burning sensation. Patient is currently afebrile. There was evaluation of his AV fistula which shows thrombosis of his DRIL. He has now been transferred to [facility] for vascular evaluation. Infectious disease consultation has been requested to evaluate for sepsis. Notes reviewed D/W RN Sedated on the vent On pressors Febrile to 101+ Moderate ET secretions - yellow lim color, thin Had HD yesterday To get central line this morning Antibiotics Current Medications Vanco x 1 Zosyn Micafungin Medications (Trade) Dose Ordered Sig/Renny Route Start Time Stop Time Status Last Admin (NS Flush) 2 ml BID IV FLUSH 11/12/17 21:00 12/04/17 08:37 (Tylenol) 650 mg Q4H PRN PO 11/12/17 20:00 12/04/17 08:36 (Zofran Inj) 4 mg Q6H PRN IVP 11/12/17 20:00 (Narcan Inj) 0.4 mg UNSCH PRN IV PUSH 1/29/18 20:00 (D50w (Vial) Inj) 50 ml UNSCH PRN IV PUSH 11/12/17 23:30 (Glucagon Inj) 1 mg UNSCH PRN OTHER 11/12/17 23:30 (Phoslo) 667 mg TID PO 11/13/17 09:00 12/04/17 08:36 (Ecotrin Ec) 162 mg DAILY PO 11/13/17 09:00 12/04/17 08:36 (Plavix) 75 mg DAILY PO 11/13/17 09:00 Future hold 12/04/17 08:36 (Baciguent Oint) 1 applic Q12HR TOPICAL 11/13/17 21:00 12/04/17 08:38 Sodium Chloride 1,000 ml @ 0 mls/hr Q0M PRN OTHER 11/13/17 14:09 12/03/17 18:45 (Heparin Inj) 8,000 units UNSCH PRN IV FLUSH 11/13/17 14:15 11/15/17 15:23 Sodium Chloride 1,000 ml @ 200 mls/hr Q5H PRN IV 11/13/17 14:09 11/26/17 07:15 Sodium Chloride 1,000 ml @ 0 mls/hr Q0M PRN OTHER 11/13/17 14:09 (Mannitol Inj) 12.5 gm UNSCH PRN IV 11/13/17 14:15 11/17/17 11:53 Albumin Human 100 ml @ 60 mls/hr UNSCH PRN IV 11/13/17 14:15 12/03/17 18:46 (NS Flush) 5 ml UNSCH PRN IV FLUSH 11/13/17 14:15 12/03/17 18:46 (Heparin Inj) UNSCH PRN .XX 11/13/17 14:15 12/03/17 18:48 (Gentamicin Inj) 20 mg UNSCH PRN OTHER 11/13/17 14:15 12/03/17 18:47 (Zofran Inj) 4 mg UNSCH PRN IV PUSH 11/13/17 14:15 (Tylenol) 650 mg UNSCH PRN PO 11/13/17 14:15 11/18/17 08:40 (Benadryl) 25 mg UNSCH PRN PO 11/13/17 14:15 (Nitrostat Sl) 0.4 mg UNSCH PRN SL 11/13/17 14:15 (Catapres) 0.1 mg UNSCH PRN PO 11/13/17 14:15 (Epogen Inj) 4,000 units UNSCH PRN IV PUSH 11/13/17 14:15 12/03/17 18:46 (Gelfoam 12 Mm/7 Mm Top) 1 foam UNSCH PRN TOP 11/13/17 14:15 (Coreg) 3.125 mg BID PO 11/16/17 21:00 Future Hold 11/22/17 08:37 (Neurontin) 100 mg TID PO 11/20/17 18:00 Future Hold 11/25/17 18:34 ([place] Thyroid) 60 mg BID PO 11/20/17 21:00 12/04/17 08:36 (Roxicodone) 5 mg Q4H PRN PO 11/20/17 15:15 (Dilaudid) 2 mg Q4H PRN PO 11/20/17 15:15 (Morphine Inj) 2 mg Q1H PRN IV PUSH 11/20/17 15:15 (Marleny-Colace) 1 tab BID PO 11/20/17 21:00 12/03/17 10:57 (Milk Of Magnesia Liq) 30 ml Q12H PRN PO 11/20/17 15:15 (Senokot) 17.2 mg Q12H PRN PO 11/20/17 15:15 (Dulcolax Supp) 10 mg DAILY PRN RECTAL 11/20/17 15:15 (Lactulose Liq) 30 ml DAILY PRN PO 11/20/17 15:15 Propofol 100 ml @ 2.841 mls/ hr TITRATE PRN IV 11/20/17 16:00 Future Hold 11/22/17 03:36 (NS Flush) 5 ml UNSCH PRN IV FLUSH 11/20/17 17:45 (Heparin Inj) 2,000 units UNSCH PRN IV FLUSH 11/20/17 17:45 (Duoneb Neb) 1 ampule Q4HR NEB PRN NEB 11/21/17 08:45 12/03/17 07:13 (Mycostatin Cream) 1 applic Q12HR TOPICAL 11/24/17 14:00 12/04/17 08:38 (Heparin Inj) 5,000 units Q12HR SQ 11/26/17 21:00 12/04/17 08:39 (Tylenol) 500 mg Q6H PRN PO 11/27/17 16:30 (Gentamicin Opht 0.3% Soln) 1 drop Q4HR EACH EYE 11/29/17 16:00 12/04/17 08:38 (Proamatine) 10 mg Q8HR PO 11/30/17 00:00 12/04/17 05:28 (Brethine Inj) 1 mg UNSCH PRN SQ 11/29/17 22:30 (Synthroid) 200 mcg DAILY@0600 PO 12/01/17 06:00 12/04/17 05:28 (NovoLOG SUPPLEMENTAL SCALE) 1 Q4H SQ 12/03/17 13:00 12/04/17 08:39 (Duoneb Neb) 1 ampule Q6HR NEB NEB 12/03/17 11:15 12/04/17 04:36 Fentanyl Citrate 250 ml @ 5 mls/hr TITRATE PRN IV 12/03/17 11:15 (Protonix Inj) 40 mg Q24H IV PUSH 12/03/17 12:00 Piperacillin Sod/ Tazobactam Sod 50 ml @ 100 mls/hr Q8H IV 12/03/17 14:00 12/04/17 05:28 Micafungin Sodium 100 mg/Sodium Chloride 100 ml @ 100 mls/hr Q24H IV 12/03/17 14:00 12/03/17 14:22 Norepinephrine Bitartrate 250 ml TITRATE PRN IV 12/04/17 09:15 UNV (Brethine Inj) 1 mg UNSCH PRN SQ 12/04/17 09:15 UNV Lines Permacath site ok. Past Medical History ESRD DM CAD HF. HTN Enlarged liver, and ascites Past Surgical History Pacemaker CABGx4 with mitral valvuloplasty in february 2005 Right fifth toe amputation Right shoulder rotator cuff repair Has had repeated paracentesis to drain his ascites Allergies: Coded Allergies: adhesive (Unverified Adverse Reaction, Severe, SKIN BREAKDOWN/ULCERS, ) Uncoded Allergies: MSG (Allergy, Intermediate, bowel problems, 08/02/17) Objective . Vital Signs Date Time Temp Pulse Resp B/P (MAP) Pulse Ox O2 Delivery O2 Flow Rate FiO2 12/04/17 07:38 98 50 12/04/17 06:00 99 12/04/17 04:38 100 40 12/04/17 04:00 99 12/04/17 04:00 40 12/04/17 04:00 98.0 99 21 87/48 (61) 100 12/04/17 02:00 100 12/04/17 00:00 97.9 100 23 96/54 (68) 100 12/04/17 00:00 100 12/04/17 00:00 40 12/03/17 23:46 100 40 12/03/17 22:00 100 12/03/17 20:11 100 40 12/03/17 20:00 40 12/03/17 20:00 98.2 98 21 106/56 (73) 100 12/03/17 20:00 98 12/03/17 16:42 70 9 94/53 (67) 100 12/03/17 16:31 70 17 82/45 (57) 91 12/03/17 16:01 98.0 71 19 113/58 (76) 100 12/03/17 15:30 70 19 104/55 (71) 100 12/03/17 15:00 68 20 97/51 (66) 100 12/03/17 14:30 66 20 93/54 (67) 99 12/03/17 14:25 100 50 12/03/17 14:01 67 21 98/52 (67) 100 12/03/17 13:30 74 17 89/50 (63) 100 12/03/17 13:00 86 15 84/48 (60) 100 12/03/17 12:30 93 17 89/51 (64) 100 12/03/17 12:12 93 8 91/50 (64) 100 12/03/17 12:00 99.1 93 4 85/48 (60) 100 12/03/17 11:45 100 50 12/03/17 11:31 86 14 95/49 (64) 100 12/03/17 11:00 94 27 91/51 (64) 100 12/03/17 10:30 90 23 99/54 (69) 100 12/03/17 10:15 96 7 95/50 (65) 100 12/03/17 09:56 100 100 . Laboratory Tests Test 12/03/17 04:09 12/04/17 03:35 White Blood Count 14.3 TH/MM3 13.7 TH/MM3 Red Blood Count 3.25 MIL/MM3 2.90 MIL/MM3 Hemoglobin 9.6 GM/DL 8.8 GM/DL Hematocrit 31.0 % 27.3 % Mean Corpuscular Volume 95.2 FL 94.3 FL Mean Corpuscular Hemoglobin 29.5 PG 30.2 PG Mean Corpuscular Hemoglobin Concent 31.0 % 32.0 % Red Cell Distribution Width 17.4 % 16.8 % Platelet Count 160 TH/MM3 143 TH/MM3 Mean Platelet Volume 9.4 FL 10.3 FL CBC Comment AUTO DIFF Differential Total Cells Counted 100 Neutrophils % (Manual) 61 % Band Neutrophils % 23 % Lymphocytes % 3 % Monocytes % 11 % Eosinophils % 1 % Neutrophils # (Manual) 11.6 TH/MM3 Metamyelocytes 1 % Differential Comment FINAL DIFF MANUAL Platelet Estimate LOW Platelet Morphology Comment NORMAL Laboratory Tests Test 12/03/17 04:09 Blood Urea Nitrogen 24 MG/DL Creatinine 6.04 MG/DL Random Glucose 127 MG/DL Calcium Level 9.5 MG/DL Magnesium Level 2.3 MG/DL Sodium Level 140 MEQ/L Potassium Level 4.2 MEQ/L Chloride Level 99 MEQ/L Carbon Dioxide Level 28.3 MEQ/L Anion Gap 13 MEQ/L Estimat Glomerular Filtration Rate 9 ML/MIN Microbiology Date/Time Source Procedure Growth Status 12/03/17 15:00 Blood Peripheral Aerobic Blood Culture Pending Received 12/03/17 15:00 Blood Peripheral Anaerobic Blood Culture Pending Received 12/03/17 14:45 Blood Peripheral Aerobic Blood Culture Pending Received 12/03/17 14:45 Blood Peripheral Anaerobic Blood Culture Pending Received 12/03/17 12:39 Sputum Endotracheal Gram Stain - Final Resulted 12/03/17 12:39 Sputum Endotracheal Sputum Culture Pending Resulted Imaging Last Impressions Chest X-Ray 12/03/17 0000 Signed Impressions: Service Date/Time: Sunday, December 03, 2017 11:33 - CONCLUSION: 1. ET tube tip in good position. 2. Stable configuration of the right lower lung consolidative and right upper and left lower lung mixed infiltrates. Iván Goodman MD Head CT 11/30/17 0000 Signed Impressions: Service Date/Time: Thursday, November 30, 2017 22:05 - CONCLUSION: 1. No acute findings. No significant change. Uzair Berrios MD Abdomen X-Ray 11/29/17 0000 Signed Impressions: Service Date/Time: November 16:03 - CONCLUSION: NG tube tip extends into the duodenum Sami Burnett MD Cyst Biopsy Asp-Paracentesis US 11/22/17 0000 Signed Impressions: Service Date/Time: November 15:20 - CONCLUSION: Uncomplicated ultrasound guided paracentesis. 6 L of chylous appearing fluid was removed. Taj Oden MD Catheter Placement X-Ray 11/21/17 [id number] Signed Impressions: Service Date/Time: Tuesday, November 21, 2017 11:42 - CONCLUSION: Uncomplicated PermaCath placement as above. James Mike MD Lower Extremity Ultrasound 11/13/17 0000 Signed Impressions: Service Date/Time: Monday, November 13, 2017 07:52 - CONCLUSION: No DVT seen in either leg. Jewel Kaiser MD Hand X-Ray 11/13/17 0000 Signed Impressions: Service Date/Time: Monday, November 13, 2017 10:18 - CONCLUSION: Osteoporosis. Extensive arterial calcifications. 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 No definite evidence of bony destruction or osteomyelitis Jared Upton MD Physical Exam GENERAL: Sedated on the vent, NAD SKIN: Cool and dry. No rash. Edematous EYES: [place] conjunctiva. No petechia or hemorrhage. No scleral icterus. EARS, NOSE AND THROAT: Orally intubated NECK: Trachea midline, supple and not tender CARDIOVASCULAR: Regular rate and rhythm. Has systolic murmur over L precordium and base of the heart RESPIRATORY: Decreased at both bases, coares eBS ABDOMEN: Soft, and bowel sounds present and hypoactive. No reaction to palpation. EXTREMITIES: No clubbing, cyanosis. Has edema of both feet and UE. Dry gangrene noted. Incision LUE dry, no redness NEUROLOGICAL: sedated LINES: No evidence of infection Assessment & Plan Remarks IMPRESSION Progressive decline in mental status Possible new sepsis, had fevers last 24 hours Septic Thrombophlebitis: Enterobacter Enterobacter bacteremia, BC 11/05 (+), ?source - permacath C/S negative (?due to previous Abx) - concern with infected thrombus LUE AVF - ?other endovascular focus Thrombosis DRIL LUE AVF S/P Bypass LUE and ligation of AVF and DRIL ESRD on HD MWF Ascites, ?primary liver problem or other etiology LMF dry gangrene Encephalopathy, ?metabolic RECOMMENDATION Follow C/S Continue Zosyn Give dose of vancomycin Continue Micafungin Follow temps Monitor progress D/W RN D/W Dr Banks ([facility]) Loraine Martinez MD Dec 04, 2017 09:31
[2017-12-04] MEDS ORDERED: VANCOMYCIN INJ 1,000 MG in SODIUM CHLOR 0.9% 250 ML INJ 250 ML IV ONE (10:00)
--- NOTE | 2017-12-04 11:16 | PD.PROCEDR ---
Central Line Procedure REASON FOR PROCEDURE Central venous access PROCEDURE PERFORMED Central line placement: Right internal jugular vein with ultrasound guidance CONSENT Informed consent for procedure was obtained from family and documented on chart. ANESTHESIA Local injection of 1% Lidocaine DESCRIPTION OF THE PROCEDURE The patient was placed in supine, mild Trendelenburg position. The area was exposed and cleansed with ChloraPrep, times two. Large sterile drape was used to cover the patient, with the site exposed, under sterile conditions including cap, face mask, sterile gown, and sterile gloves. On single attempt, the introducer needle was inserted with negative pressure in syringe and venous flash was obtained. The guide wire was then advanced without any restriction and the needle was removed. The dilator was used without any complications. Using Seldinger technique a 20 cm antimicrobial coated triple lumen catheter was advanced over the guide wire to a depth of 19 centimeters. The guide wire was removed. All ports were aspirated with dark venous blood return and flushed easily with sterile saline. All ports were capped. Antibiotic disc was placed around central line at puncture site. The central line was secured to the skin with two interrupted 2.0 silk sutures. The area was bandaged with sterile see-through central line bandage. RADIOLOGICAL DATA Ultrasound guidance was used to locate the right internal jugular vein. COMPLICATIONS: No apparent complications with this procedure. Failed attempt at left IJ central line placement earlier with successful axis of internal jugular vein however unable to pass guidewire. Failed attempt at left femoral vein central line placement ESTIMATED BLOOD LOSS: Less than 4 cc. Yobany Banks MD Dec 04, 2017 11:16
--- NOTE | 2017-12-04 11:57 | RADRPT ---
EXAM DATE/TIME: 12/04/2017 11:09 [place] COMPARISON: CHEST SINGLE AP, December 03, 2017, 11:33. INDICATIONS : Line placement. MEDICAL HISTORY : Hypothyroidism. Myocardial infarction. Sleep apnea. Renal disease. Arthritis. Congestive heart failur e. Hypertension SURGICAL HISTORY : Pacemaker. Bilateral GSV harvesting ENCOUNTER: Subsequent ACUITY: 2 weeks PAIN SCORE: Non-responsive. LOCATION: Bilateral chest FINDINGS: The cardiac silhouette is enlarged in transverse diameter. A biventricular defibrillator is in place via a left sided approach. A right sided internal jugular vein catheter is in place without pneumotho rax with its tip in the superior vena cava. There are findings of congestive heart failure with inter stitial and alveolar opacity bilaterally. A small right sided effusion is present. CONCLUSION: 1. Uncomplicated line placement. No evidence of pneumothorax. James Mike MD on December 04, 2017 at 11:53 Board Certified Radiologist. This report was verified electronically.
[2017-12-04] MEDS: NOREPINEPHRINE-DEXTROSE DRIP 250 ML IV PRN ×2 (12:27→20:58)
[2017-12-04] MEDS: PANTOPRAZOLE SODIUM 40 MG VIAL IV PUSH SCH (12:29)
[2017-12-04 13:22] LABS: BICARBONATE 31.5 MEQ/L (21.0-32.0); CALCIUM 8.7 MG/DL (8.5-10.1); CREATININE 4.8 MG/DL (0.60-1.30)
[2017-12-04] MEDS: MICAFUNGIN INJ 100 MG in SODIUM CHLORIDE 0.9% INJ 100 ML IV SCH (13:43)
--- NOTE | 2017-12-04 16:28 | HHI.NPPN ---
Subjective History of Present Illness Patient is a 67-year-old male with a history of end-stage renal disease on hemodialysis Sunday/Sunday/ Sunday, diabetes, CAD, CHF, hypertension was transferred from [facility] to be evaluated by vascular surgery. Patient states he was admitted to [facility] because he had low blood pressure readings at home. AV fistula has not been functioning or used for 6- 8 weeks and they have been using a permacath for dialysis. Permacath has been removed secondary to possible infection and vas cath has been placed. He has been treated with cefepime IV. Last dialysis was Sunday and 1.5 L removed. Patient has a necrotic left middle finger that patient states has been going on for the last 12 weeks. Additional Remarks Patient is sedated on ventilator (Kathleen Olguin) Review of Systems Genitourinary Remarks (Kathleen Olguin) Objective Data Data Vital Signs Date Time Temp Pulse Resp B/P (MAP) Pulse Ox O2 Delivery O2 Flow Rate FiO2 12/04/17 13:18 100 40 12/04/17 12:27 96 93/52 12/04/17 11:16 97 40 12/04/17 08:00 40 12/04/17 07:38 98 50 12/04/17 06:00 99 12/04/17 04:38 100 40 12/04/17 04:00 99 12/04/17 04:00 40 12/04/17 04:00 98.0 99 21 87/48 (61) 100 12/04/17 02:00 100 12/04/17 00:00 97.9 100 23 96/54 (68) 100 12/04/17 00:00 100 12/04/17 00:00 40 12/03/17 23:46 100 40 12/03/17 22:00 100 12/03/17 20:11 100 40 12/03/17 20:00 40 12/03/17 20:00 98.2 98 21 106/56 (73) 100 12/03/17 20:00 98 12/03/17 16:42 70 9 94/53 (67) 100 12/03/17 16:31 70 17 82/45 (57) 91 (Kathleen Olguin) -: 12/04/17 0335 12/04/17 1030 Imaging Last Impressions Chest X-Ray 12/04/17 0000 Signed Impressions: Service Date/Time: Monday, December 04, 2017 11:09 - CONCLUSION: 1. Uncomplicated line placement. No evidence of pneumothorax. James Mike MD Head CT 11/30/17 0000 Signed Impressions: Service Date/Time: Thursday, November 30, 2017 22:05 - CONCLUSION: 1. No acute findings. No significant change. Uzair Berrios MD Abdomen X-Ray 11/29/17 0000 Signed Impressions: Service Date/Time: November 16:03 - CONCLUSION: NG tube tip extends into the duodenum Sami Burnett MD Cyst Biopsy Asp-Paracentesis US 11/22/17 0000 Signed Impressions: Service Date/Time: November 15:20 - CONCLUSION: Uncomplicated ultrasound guided paracentesis. 6 L of chylous appearing fluid was removed. Taj Oden MD Catheter Placement X-Ray 11/21/17 1554 Signed Impressions: Service Date/Time: Tuesday, November 21, 2017 11:42 - CONCLUSION: Uncomplicated PermaCath placement as above. James Mike MD Lower Extremity Ultrasound 11/13/17 0000 Signed Impressions: Service Date/Time: Monday, November 13, 2017 07:52 - CONCLUSION: No DVT seen in either leg. Jewel Kaiser MD Hand X-Ray 11/13/17 0000 Signed Impressions: Service Date/Time: Monday, November 13, 2017 10:18 - CONCLUSION: Osteoporosis. Extensive arterial calcifications. 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 No definite evidence of bony destruction or osteomyelitis Jared Upton MD Tubes & Lines: Perma-Cath (Kathleen Olguin M. [employer]LAST[employer] SPREADING MACHINE OPERATOR) Physical Exam Eyes Eye Exam: Pupils Equal (Kathleen Olguin. PLAST[employer] SPREADING MACHINE OPERATOR) Throat Throat Exam: Oral Mucosa [place] & Moist Throat Remarks NG tube (Kathleen Olguin M. [employer] SPREADING MACHINE OPERATOR) Pulmonary Resp Exam: Breath Sounds Equal, No Distress, Rhonchi, Decreased Bases (JennifermannKathleen M. PLAST[employer] SPREADING MACHINE OPERATOR) Cardiology CV Exam: Regular (GellerKathleen kincaid M. PLAST[employer] SPREADING MACHINE OPERATOR) Gastrointestinal/Abdomen GI Exam: Soft, Non-Tender, Bowel Sounds Present (Kathleen Olguin) Integumentary Skin Remarks necrotic area on tip on left hand middle finger (Kathleen Olguin) Extremeties Extremities Exam: Moderate Edema (Left arm and hand swelling.) (Kathleen Olguin) Neurologic Neuro Exam: Sedated (Kathleen Olguin) Assessment/Plan Discussed Condition With: Spouse Assessment Summary: End Stage Renal Disease Problem List: (1) ESRD (end stage renal disease) on dialysis ICD Codes: N18.6 - End stage renal disease; Z99.2 - Dependence on renal dialysis Plan: Dialysis MWF s/p L UE bypass 2/6 ligation of AVF and DRIL Anemia Epogen with dialysis Post Paracentesis done 11/22/17. Now intubated after having respiratory distress. On norepinephrine for blood pressure support. ID is following, now on Zosyn, Vanco. and Micafungin. HD yesterday with 3 liters removed Dialysis tomorrow (2) Gangrene of finger of left hand ICD Codes: I96 - Gangrene, not elsewhere classified Plan: necrotic area on left hand middle finger (3) AV fistula occlusion ICD Codes: T82.898A - Other specified complication of vascular prosthetic devices, implants and grafts, initial encounter Plan: s/p L UE bypass 2/6 ligation of AVF and DRIL (4) Diabetes mellitus ICD Codes: E11.9 - Type 2 diabetes mellitus without complications Plan: Maintain BS between 140mg/dl to 180 mg/dl (Kathleen Olguin) Problem List: (1) ESRD (end stage renal disease) on dialysis ICD Codes: N18.6 - End stage renal disease; Z99.2 - Dependence on renal dialysis Plan: Dialysis MWF s/p L UE bypass 2/6 ligation of AVF and DRIL Anemia Epogen with dialysis Post Paracentesis done 11/22/17. Now intubated after having respiratory distress. On norepinephrine for blood pressure support. ID is following, now on Zosyn, Vanco. and Micafungin. HD yesterday with 3 liters removed Dialysis tomorrow. Patient seen and examined, agree with above. Not much improvement in Encephalopathy. Seen by Palliative care. (2) Gangrene of finger of left hand ICD Codes: I96 - Gangrene, not elsewhere classified Plan: necrotic area on left hand middle finger (3) AV fistula occlusion ICD Codes: T82.898A - Other specified complication of vascular prosthetic devices, implants and grafts, initial encounter Plan: s/p L UE bypass 2/6 ligation of AVF and DRIL (4) Diabetes mellitus ICD Codes: E11.9 - Type 2 diabetes mellitus without complications Plan: Maintain BS between 140mg/dl to 180 mg/dl (Kim Santos MD) Kathleen Olguin Dec 04, 2017 16:28 Kim Santos MD Dec 04, 2017 17:21
--- NOTE | 2017-12-04 16:54 | PD.CONS ---
Consult Service Palliative Care Consult Requested By Dr. Banks. Primary Care Physician Meir Oliver, DO Reason for Consultation a. To assist with evaluation and management of symptoms including: Pain, shortness of breath, debility. b. To assist medical decision maker(s) with: better understanding of current medical conditions; weighing benefits/burdens of medical treatment options; making medical treatment decisions. . (Lisa Saha) HPI History of Present Illness Mr. Hernandez is a 67-year-old male with a medical history significant for end- stage renal disease on hemodialysis, CAD status post CABG in 2004, CHF, hypertension, diabetes mellitus. Patient was transferred from [facility] to be evaluated by vascular surgery. As per medical records, patient was admitted at [facility] secondary to hypotension. During his medical course, he was found to have an occluded left AV fistula at the proximal anastomosis as well as ischemic digits. Patient was admitted for further management. Nephrology, Dr. Santos consulted on 11/13/17 evaluation and management of end- stage renal disease, currently on dialysis. Patient on hemodialysis 3 times a week for the last 2 years. Patient was restarted on hemodialysis on 11/14/17. Infectious disease, Dr. Kumari consulted on 11/13/17 for evaluation of sepsis and left hand gangrene. During the above-mentioned admission at [facility], blood cultures dated 11/05/17 grew Enterobacter Cloaca, follow-up blood cultures 11/07/17 reported as negative. His permacath was removed at that time secondary to possible source of infection. Blood culture 11/13/17 and with no growth in 5 days. Patient presented with gangrene to multiple digits bilaterally. Hand surgery, Dr. Ko consulted on 11/13/17. 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 Vascular surgery, Dr. Jansen consulted on 11/13/17 for evaluation of bilateral upper extremities digital ischemia, left upper extremity aVF thrombosed. Patient status post left upper extremity access revision and DRIL on July,. 2-D Echocardiogram 11/14/17 revealing EF of 55-60%, trace mitral valve regurgitation and moderate mitral annular calcification. No vegetation found. On 11/16/17, patient underwent thoracic arthrogram with bilateral upper extremity angiogram. Patient was found with a normal three-vessel aortic arch and patent left subclavian, axillary and brachial arteries. The distal brachial arteries included. On 11/20/17, patient underwent left brachial-brachial bypass with vein , ligation of left upper extremity AVF. Clinical course complicated by respiratory failure, septic shock on 11/20/17 requiring intubation and mechanical ventilation. At that time, patient was transferred to ICU for further management. Patient requiring vasopressors, continued hemodialysis. Patient was medically extubated on 11/24/17. Remained on Shon-Synephrine for hypotension management. Follow-up cultures negative. Clinical course further complicated on 12/03/17 secondary to altered mental status and respiratory distress requiring intubation and mechanical ventilation. Patient was transferred to intensive care unit for further monitoring and management. Head CT 11/26 and follow-up 11/30 negative for acute process. Neurology, Dr. Hayden consulted , ABG revealing moderate to severe encephalopathy, likely metabolic in nature. Patient's clinical condition continued to worsen, on 12/04/17 central line was placed and given persistent hypotension. Patient currently on vasopressor. Palliative care has been consulted for further clarifications of goals of care. Patient seen and medical ICU. The trochlea intubated on mechanical ventilation. Unresponsive to verbal or tactile stimuli, mild facial grimacing noted. Patient afebrile, currently on Shon-Synephrine. Sputum culture 12/03/17 positive for gram-negative kodi. Most recent dialysis yesterday 12/03 removing 3 L. Most recent chest x-ray 12/03 revealing right lower lung consolidation in right upper and left lower lung mixed infiltrates. Met with patient's Jeanine and sons Iván and Derrick. In this first visit, reviewed the role of palliative care in advanced illness in regards to symptom management as well as support surrounding goals of care and advance care planning. Family receptive to consultation. Obtained patient's past medical history and psychosocial history. Reviewed patient's complicated recent medical history to include hospitalization at [facility], clinical course and current medical management. Patient's family with a very good understanding of patient's clinical condition. Shared concerns of patient's overall status to include multiple chronic ongoing comorbidities, prolonged hospitalization, acute events to include sepsis and generalized physical deconditioning. Reviewed the patient is a very high risk for further complications, continue decline and . Reviewed risks, benefits and limitations of CPR given patient's clinical condition and past medical history. Family's goals are to continue aggressive management to include full code at this time, continue attempts at medical extubation. Family verbalized that if patient is unable to medically extubate, family not likely to proceed with tracheostomy or PEG tube placement given patient's known wishes as stated in his living will. Family wishing to allow a few more days for medical improvement, receptive to palliative care follow-ups. . Function/Cognitive Trajectory Patient requiring the standby assistance with ADLs prior to this hospitalization. Progressive physical decline and poor activity tolerance. Ambulating without assistive device. No cognitive deficit reported by family. . (Lisa Saha) Review of Systems ROS Limitations: Clinical Condition, Intubated Constitutional: COMPLAINS OF: Fever, Pain Eyes: DENIES: Eye inflammation Ears, nose, mouth, throat: DENIES: Nasal discharge, Oral lesions, Running Nose , Epistaxis Respiratory: COMPLAINS OF: Shortness of breath Cardiovascular: COMPLAINS OF: Dyspnea on Exertion, Lower Extremity Edema Gastrointestinal: DENIES: Constipation, Nausea, Vomiting Genitourinary: DENIES: Urinary incontinence Integumentary: DENIES: Abnormal pigmentation Hematologic/Lymphatics: COMPLAINS OF: Bruising Immunologic/Allergic: DENIES: Eczema Neurologic: DENIES: Localized weakness Psychiatric: COMPLAINS OF: Confusion Other ROS: Limited ROS secondary to patient's clinical condition, unresponsive on mechanical ventilation. ROS obtained from medical records, clinical observation and patient's family. (Lisa Saha) Past Family Social History Coded Allergies: adhesive (Unverified Adverse Reaction, Severe, SKIN BREAKDOWN/ULCERS, ) Uncoded Allergies: MSG (Allergy, Intermediate, bowel problems, 08/02/17) Past Medical History ESRD on hemodialysis DM CAD s/p CABG CHF HTN Hypothyroidism Neuropathy . Past Surgical History Pacemaker/AICD CABGx4 with mitral valvuloplasty in february 2005 Right fifth toe amputation Right shoulder rotator cuff repair . Reported Medications Cipro (Ciprofloxacin HCl) 250 Mg Tab 750 Mg PO DAILY 28 Days Novolog Inj (Insulin Aspart) 100 Unit/Ml Inj 1 Injection SQ ACHS SLIDING SCALE [address] (Aspirin) 81 Mg Tabdr 81 Mg PO DAILY 30 Days Plavix (Clopidogrel Bisulfate) 75 Mg Tab 75 Mg PO DAILY 30 Days Carvedilol 3.125 Mg Tab 3.125 Mg PO BID Coq-10 Tr (Coenzyme Q10 (Ubidecarenone)) 100 Mg Cap 200 Mg PO DAILY Novolin 70-30 Inj (Insulin Human Isoph/Insulin Regular) 1,000 Unit/10 Ml Vial 12 Units SQ BIDAC Rozet Thyroid (Thyroid) 60 Mg Tab 60 Mg PO BID Pantoprazole (Pantoprazole Sodium) 20 Mg Tab 20 Mg PO DAILY Bumetanide 2 Mg Tab 2 Mg PO DAILY Gabapentin 100 Mg Cap 100 Mg PO TID . Current Medications Medications (Trade) Dose Ordered Sig/Renny Route Start Time Stop Time Status Last Admin (NS Flush) 2 ml BID IV FLUSH 11/12/17 21:00 12/04/17 08:37 (Tylenol) 650 mg Q4H PRN PO 11/12/17 20:00 12/04/17 08:36 (Zofran Inj) 4 mg Q6H PRN IVP 11/12/17 20:00 (Narcan Inj) 0.4 mg UNSCH PRN IV PUSH 11/12/17 20:00 (D50w (Vial) Inj) 50 ml UNSCH PRN IV PUSH 11/12/17 23:30 (Glucagon Inj) 1 mg UNSCH PRN OTHER 11/12/17 23:30 (Phoslo) 667 mg TID PO 11/13/17 09:00 12/04/17 13:53 (Ecotrin Ec) 162 mg DAILY PO 11/13/17 09:00 12/04/17 08:36 (Plavix) 75 mg DAILY PO 11/13/17 09:00 Future hold 12/04/17 08:36 (Baciguent Oint) 1 applic Q12HR TOPICAL 11/13/17 21:00 12/04/17 08:38 Sodium Chloride 1,000 ml @ 0 mls/hr Q0M PRN OTHER 11/13/17 14:09 12/03/17 18:45 (Heparin Inj) 8,000 units UNSCH PRN IV FLUSH 11/13/17 14:15 11/15/17 15:23 Sodium Chloride 1,000 ml @ 200 mls/hr Q5H PRN IV 11/13/17 14:09 11/26/17 07:15 Sodium Chloride 1,000 ml @ 0 mls/hr Q0M PRN OTHER 11/13/17 14:09 (Mannitol Inj) 12.5 gm UNSCH PRN IV 11/13/17 14:15 11/17/17 11:53 Albumin Human 100 ml @ 60 mls/hr UNSCH PRN IV 11/13/17 14:15 12/03/17 18:46 (NS Flush) 5 ml UNSCH PRN IV FLUSH 11/13/17 14:15 12/03/17 18:46 (Heparin Inj) UNSCH PRN .XX 11/13/17 14:15 12/03/17 18:48 (Gentamicin Inj) 20 mg UNSCH PRN OTHER 11/13/17 14:15 12/03/17 18:47 (Zofran Inj) 4 mg UNSCH PRN IV PUSH 11/13/17 14:15 (Tylenol) 650 mg UNSCH PRN PO 11/13/17 14:15 11/18/17 08:40 (Benadryl) 25 mg UNSCH PRN PO 11/13/17 14:15 (Nitrostat Sl) 0.4 mg UNSCH PRN SL 11/13/17 14:15 (Catapres) 0.1 mg UNSCH PRN PO 11/13/17 14:15 (Epogen Inj) 4,000 units UNSCH PRN IV PUSH 11/13/17 14:15 12/03/17 18:46 (Gelfoam 12 Mm/7 Mm Top) 1 foam UNSCH PRN TOP 11/13/17 14:15 (Coreg) 3.125 mg BID PO 11/16/17 21:00 Future Hold 11/22/17 08:37 (Neurontin) 100 mg TID PO 11/20/17 18:00 Future Hold 11/25/17 18:34 (Rozet Thyroid) 60 mg BID PO 11/20/17 21:00 12/04/17 08:36 (Roxicodone) 5 mg Q4H PRN PO 11/20/17 15:15 (Dilaudid) 2 mg Q4H PRN PO 11/20/17 15:15 (Morphine Inj) 2 mg Q1H PRN IV PUSH 11/20/17 15:15 (Marleny-Colace) 1 tab BID PO 11/20/17 21:00 12/03/17 10:57 (Milk Of Magnesia Liq) 30 ml Q12H PRN PO 11/20/17 15:15 (Senokot) 17.2 mg Q12H PRN PO 11/20/17 15:15 (Dulcolax Supp) 10 mg DAILY PRN RECTAL 11/20/17 15:15 (Lactulose Liq) 30 ml DAILY PRN PO 11/20/17 15:15 Propofol 100 ml @ 2.841 mls/ hr TITRATE PRN IV 11/20/17 16:00 Future Hold 11/22/17 03:36 (NS Flush) 5 ml UNSCH PRN IV FLUSH 11/20/17 17:45 (Heparin Inj) 2,000 units UNSCH PRN IV FLUSH 11/20/17 17:45 (Duoneb Neb) 1 ampule Q4HR NEB PRN NEB 11/21/17 08:45 12/03/17 07:13 (Mycostatin Cream) 1 applic Q12HR TOPICAL 11/24/17 14:00 12/04/17 08:38 (Heparin Inj) 5,000 units Q12HR SQ 11/26/17 21:00 12/04/17 08:39 (Tylenol) 500 mg Q6H PRN PO 11/27/17 16:30 (Gentamicin Opht 0.3% Soln) 1 drop Q4HR EACH EYE 11/29/17 16:00 12/04/17 12:29 (Proamatine) 10 mg Q8HR PO 11/30/17 00:00 12/04/17 13:42 (Brethine Inj) 1 mg UNSCH PRN SQ 11/29/17 22:30 (Synthroid) 200 mcg DAILY@0600 PO 12/01/17 06:00 12/04/17 05:28 (NovoLOG SUPPLEMENTAL SCALE) 1 Q4H SQ 12/03/17 13:00 12/04/17 13:42 (Duoneb Neb) 1 ampule Q6HR NEB NEB 12/03/17 11:15 12/04/17 15:31 Fentanyl Citrate 250 ml @ 5 mls/hr TITRATE PRN IV 12/03/17 11:15 (Protonix Inj) 40 mg Q24H IV PUSH 12/03/17 12:00 12/04/17 12:29 Piperacillin Sod/ Tazobactam Sod 50 ml @ 100 mls/hr Q8H IV 12/03/17 14:00 12/04/17 13:41 Micafungin Sodium 100 mg/Sodium Chloride 100 ml @ 100 mls/hr Q24H IV 12/03/17 14:00 12/04/17 13:43 Norepinephrine Bitartrate 250 ml @ 7.5 mls/hr TITRATE PRN IV 12/04/17 09:15 12/04/17 12:27 (Brethine Inj) 1 mg UNSCH PRN SQ 12/04/17 09:15 Family History Family history significant for DM, father COPD. . Substance Use Tobacco: Former smoker. Quit 20 years ago. Alcohol: None reported. Prescription med abuse: None reported. Illicits: None reported. . Psychosocial History Patient is originally from [place]. Moved to [place] 28 years ago. Currently for the past 34 years. Has a total of 4 children, 2 with current . 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 . Spiritual/Cultural Factors Hoahaoism natalia. . (Lisa Saha) Living Will: Copy in medical record Health Care Surrogate: Copy in medical record Date completed: 12/05/2013. . Health Care Surrogate(s): Patient designated her son Derrick Hernandez as surrogate decision maker, alternate surrogate is Jeanine and son Iván. . Documented care wishes: Living will with standard verbiage as it pertains to terminal condition, end- stage condition or persistent vegetative state. . Family/friends goals: Continue aggressive management to include full code. . Ethical and Legal Issues No ethical or legal issues identified. . (Lisa Saha) Physical Exam Vital Signs Date Time Temp Pulse Resp B/P (MAP) Pulse Ox O2 Delivery O2 Flow Rate FiO2 12/04/17 13:18 100 40 12/04/17 12:27 96 93/52 12/04/17 11:16 97 40 12/04/17 08:00 40 12/04/17 07:38 98 50 12/04/17 06:00 99 12/04/17 04:38 100 40 12/04/17 04:00 99 12/04/17 04:00 40 12/04/17 04:00 98.0 99 21 87/48 (61) 100 12/04/17 02:00 100 12/04/17 00:00 97.9 100 23 96/54 (68) 100 12/04/17 00:00 100 12/04/17 00:00 40 12/03/17 23:46 100 40 12/03/17 22:00 100 12/03/17 20:11 100 40 12/03/17 20:00 40 12/03/17 20:00 98.2 98 21 106/56 (73) 100 12/03/17 20:00 98 12/03/17 16:42 70 9 94/53 (67) 100 12/03/17 16:31 70 17 82/45 (57) 91 12/03/17 16:01 98.0 71 19 113/58 (76) 100 Exam CONSTITUTIONAL/GENERAL: This is an adequately nourished patient, in no apparent distress. TUBES/LINES/DRAINS: ETT, OG, right IJ central line, Reese catheter, SCDs, bilateral soft wrist restraints. Bite guard. SKIN: No jaundice, rashes, or lesions. Ecchymoses on upper extremities. Skin temperature appropriate. Not diaphoretic. Necrotic multiple digits bilaterally. HEAD: Atraumatic. Normocephalic. EYES: Pupils equal and round and reactive. No scleral icterus. No injection or drainage. ENT: Hearing grossly normal. Nose without bleeding or purulent drainage. Moist oral mucosa. NECK: Trachea midline. Supple, nontender. CARDIOVASCULAR: Regular rate and rhythm. Peripheral pedal pulses symmetric. RESPIRATORY/CHEST: Symmetric, unlabored respirations. Coarse breath sounds bilaterally. Objective intubated on mechanical ventilation. GASTROINTESTINAL: Abdomen obese, large, round. Bowel sounds present. GENITOURINARY: Without palpable bladder distension. Reese catheter in place. MUSCULOSKELETAL: Extremities without clubbing. Significant weeping edema to bilateral upper extremities, right more than left. NEUROLOGICAL: Briefly opening eyes to tactile stimuli. Not following commands are attempting to communicate. PSYCHIATRIC: Able to assess secondary to clinical condition. Appears calm. . (Lisa Saha) Diagnostic Tests Laboratory Laboratory Tests Test 12/02/17 06:11 12/02/17 18:43 12/03/17 04:09 12/04/17 03:35 White Blood Count 10.8 TH/MM3 (4.0-11.0) 14.3 TH/MM3 (4.0-11.0) 13.7 TH/MM3 (4.0-11.0) Red Blood Count 2.80 MIL/MM3 (4.50-5.90) 3.25 MIL/MM3 (4.50-5.90) 2.90 MIL/MM3 (4.50-5.90) Hemoglobin 8.5 GM/DL (13.0-17.0) 9.6 GM/DL (13.0-17.0) 8.8 GM/DL (13.0-17.0) Hematocrit 26.9 % (39.0-51.0) 31.0 % (39.0-51.0) 27.3 % (39.0-51.0) Mean Corpuscular Volume 96.4 FL (80.0-100.0) 95.2 FL (80.0-100.0) 94.3 FL (80.0-100.0) Mean Corpuscular Hemoglobin 30.2 PG (27.0-34.0) 29.5 PG (27.0-34.0) 30.2 PG (27.0-34.0) Mean Corpuscular Hemoglobin Concent 31.4 % (32.0-36.0) 31.0 % (32.0-36.0) 32.0 % (32.0-36.0) Red Cell Distribution Width 17.9 % (11.6-17.2) 17.4 % (11.6-17.2) 16.8 % (11.6-17.2) Platelet Count 183 TH/MM3 (150-450) 160 TH/MM3 (150-450) 143 TH/MM3 (150-450) Mean Platelet Volume 9.7 FL (7.0-11.0) 9.4 FL (7.0-11.0) 10.3 FL (7.0-11.0) CBC Comment AUTO DIFF AUTO DIFF Differential Total Cells Counted 100 100 Neutrophils % (Manual) 63 % (16-70) 61 % (16-70) Band Neutrophils % 21 % (0-6) 23 % (0-6) Lymphocytes % 5 % (9-44) 3 % (9-44) Monocytes % 10 % (0-8) 11 % (0-8) Eosinophils % 1 % (0-4) 1 % (0-4) Neutrophils # (Manual) 9.1 TH/MM3 (1.8-7.7) 11.6 TH/MM3 (1.8-7.7) Differential Comment FINAL DIFF MANUAL FINAL DIFF MANUAL Toxic Granulation 2+ (NORMAL) Platelet Estimate NORMAL (NORMAL) LOW (NORMAL) Platelet Morphology Comment NORMAL (NORMAL) NORMAL (NORMAL) Ovalocytes 1+ (NORMAL) Blood Urea Nitrogen 21 MG/DL (7-18) 24 MG/DL (7-18) Creatinine 5.48 MG/DL (0.60-1.30) 6.04 MG/DL (0.60-1.30) Random Glucose 178 MG/DL (74-106) 127 MG/DL (74-106) Total Protein 5.4 GM/DL (6.4-8.2) Albumin 2.7 GM/DL (3.4-5.0) Calcium Level 9.0 MG/DL (8.5-10.1) 9.5 MG/DL (8.5-10.1) Phosphorus Level 3.4 MG/DL (2.5-4.9) Magnesium Level 2.3 MG/DL (1.5-2.5) 2.3 MG/DL (1.5-2.5) Alkaline Phosphatase 159 U/L (45-117) Aspartate Amino Transf (AST/SGOT) 12 U/L (15-37) Alanine Aminotransferase (ALT/SGPT) 7 U/L (12-78) Total Bilirubin 0.5 MG/DL (0.2-1.0) Sodium Level 139 MEQ/L (136-145) 140 MEQ/L (136-145) Potassium Level 4.1 MEQ/L (3.5-5.1) 4.2 MEQ/L (3.5-5.1) Chloride Level 98 MEQ/L (98-107) 99 MEQ/L (98-107) Carbon Dioxide Level 25.2 MEQ/L (21.0-32.0) 28.3 MEQ/L (21.0-32.0) Anion Gap 16 MEQ/L (5-15) 13 MEQ/L (5-15) Estimat Glomerular Filtration Rate 11 ML/MIN (>89) 9 ML/MIN (>89) Blood Gas Puncture Site RT RADIAL Blood Gas Patient Temperature 98.6 Blood Gas HCO3 29 mmol/L (22-26) Blood Gas Base Excess 3.7 mmol/L (-2-2) Blood Gas Oxygen Saturation 97 % (90-100) Arterial Blood pH 7.33 (7.380-7.420) Arterial Blood Partial Pressure CO2 57 mmHg (38-42) Arterial Blood Partial Pressure O2 233 mmHg (61-120) Arterial Blood Oxygen Content 12.8 Vol % (12.0-20.0) Arterial Blood Carboxyhemoglobin 1.4 % (0-4) Arterial Blood Methemoglobin 1.2 % (0-2) Blood Gas Hemoglobin 9.0 G/DL (12.0-16.0) Oxygen Delivery Device Non-Rebreathing Mask Blood Gas Liter Flow 15 L/M Blood Gas Inspired Oxygen 100 % Metamyelocytes 1 % (0-1) Test 12/04/17 10:30 Blood Urea Nitrogen 26 MG/DL (7-18) Creatinine 4.80 MG/DL (0.60-1.30) Random Glucose 212 MG/DL (74-106) Calcium Level 8.7 MG/DL (8.5-10.1) Sodium Level 140 MEQ/L (136-145) Potassium Level 3.5 MEQ/L (3.5-5.1) Chloride Level 99 MEQ/L (98-107) Carbon Dioxide Level 31.5 MEQ/L (21.0-32.0) Anion Gap 10 MEQ/L (5-15) Estimat Glomerular Filtration Rate 12 ML/MIN (>89) (Lisa SahaP) Result Diagram: 12/04/17 0335 12/04/17 1030 Microbiology Microbiology Date/Time Source Procedure Growth Status 12/03/17 15:00 Blood Peripheral Aerobic Blood Culture - Preliminary NO GROWTH IN 1 DAY Resulted 12/03/17 15:00 Blood Peripheral Anaerobic Blood Culture - Preliminary NO GROWTH IN 1 DAY Resulted 12/03/17 14:45 Blood Peripheral Aerobic Blood Culture - Preliminary NO GROWTH IN 1 DAY Resulted 12/03/17 14:45 Blood Peripheral Anaerobic Blood Culture - Preliminary NO GROWTH IN 1 DAY Resulted 12/03/17 12:39 Sputum Endotracheal Gram Stain - Final Resulted 12/03/17 12:39 Sputum Culture - Preliminary Gram Negative Kodi Resulted Imaging Last Impressions Chest X-Ray 12/04/17 0000 Signed Impressions: Service Date/Time: Monday, December 04, 2017 11:09 - CONCLUSION: 1. Uncomplicated line placement. No evidence of pneumothorax. James Mike MD Head CT 11/30/17 0000 Signed Impressions: Service Date/Time: Thursday, November 30, 2017 22:05 - CONCLUSION: 1. No acute findings. No significant change. Uzair Berrios MD Abdomen X-Ray 11/29/17 0000 Signed Impressions: Service Date/Time: November 16:03 - CONCLUSION: NG tube tip extends into the duodenum Sami Burnett MD Cyst Biopsy Asp-Paracentesis US 11/22/17 0000 Signed Impressions: Service Date/Time: November 15:20 - CONCLUSION: Uncomplicated ultrasound guided paracentesis. 6 L of chylous appearing fluid was removed. aTj Oden MD Catheter Placement X-Ray 11/21/17 1554 Signed Impressions: Service Date/Time: Tuesday, November 21, 2017 11:42 - CONCLUSION: Uncomplicated PermaCath placement as above. James Mike MD Lower Extremity Ultrasound 11/13/17 0000 Signed Impressions: Service Date/Time: Monday, November 13, 2017 07:52 - CONCLUSION: No DVT seen in either leg. Jewel Kaiser MD Hand X-Ray 11/13/17 0000 Signed Impressions: Service Date/Time: Monday, November 13, 2017 10:18 - CONCLUSION: Osteoporosis. Extensive arterial calcifications. 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 No definite evidence of bony destruction or osteomyelitis Jared Upton MD Procedures * 11/20/17: Left brachial-brachial bypass using vein with interposition graft * 11/21/17: Permacath placement. * 11/20/17: Endotracheal intubation. * 11/22/17: Paracenteses, 6 L removed. * 11/24/17: Medical extubation * 12/03/17: Reintubation . (Lisa Saha) Patient/Family Conference Present at Family Conference: Jeanine and sons Derrick and Iván. . Family Conference Time (mins): 48 Family Conference Location: Consult Room Issues Discussed: * Palliative care role, purpose, approach * Additional medical, psychosocial, and spiritual history * Patients general health, functional status, and cognitive changes in the months leading up to the current hospitalization * Patient/family understanding of the current medical problems -sepsis bacteremia, acute respiratory failure, end-stage renal disease, CAD, multiple chronic comorbidities, physical deconditioning. * Patient/family understanding of prognosis -prognosis is guarded. * Patients goals of care as best understood from advance directives and/or conversations and/or values * Current medical treatment options and benefits/burdens of those options * Questions answered to the best of my ability * Palliative care contact information provided * Risks, benefits and limitations of CPR . (Lisa Saha) Assessment and Plan Disease Oriented Problem List: (1) Sepsis (2) Acute respiratory failure (3) Metabolic encephalopathy (4) ESRD (end stage renal disease) on dialysis (5) Gangrene of finger of left hand Symptom Scale: (1) Pain 0-10 Scale: Unable to quantify Pertinent Non-Medical Issues Psychosocial: Patient is originally from [place]. Moved to [place] 28 years ago. Currently for the past 34 years. Has a total of 4 children, 2 with current . 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 Spiritual: Hoahaoism natalia. Legal: Advance directives completed. Ethical issues impacting care: No ethical issues identified. . Important Contacts Son Derrick/[facility] Patient's Jeanine Son Iván . Prognosis Mr. Hernandez is a 67-year-old male with a medical history significant for end- stage renal disease on hemodialysis, CAD status post CABG in 2004, CHF, hypertension, diabetes mellitus. Patient was transferred from [facility] to be evaluated by vascular surgery secondary to occluded left AV fistula at the proximal anastomosis as well as ischemic digits. Clinical course complicated by septic bacteremia, respiratory failure requiring intubation and mechanical ventilation, severe metabolic encephalopathy and hypotension. Patient at a very high risk for further complications, continue decline and . Overall prognosis is guarded at this time. . Code Status: Full Code Plan * CODE STATUS: FULL code. Risks, benefits and limitations of CPR discussed with family given patient's clinical condition. * HEALTHCARE DECISION-MAKING: Patient unable to participating in medical decision-making secondary to clinical condition, severe encephalopathy. Unclear if he will regain medical decision-making capacity. Advanced directives completed, patient has elected her son Derrick as healthcare surrogate decision maker, alternate surrogate is his Jeanine AND son Iván. * GOALS OF CARE: Aggressive management to include full code. Family wishing to allow a few more days for clinical improvement, receptive to palliative care follow-up. Family not likely to proceed with tracheostomy or PEG tube placement if patient is unable to medically extubate given patient's known wishes. Family with a very good understanding of patient's critical condition and very high risk for further complications, continue decline and . * SYMPTOMS: = Pain, secondary to multiple interventions, lines, necrotic digits , prolonged hospitalization. Fentanyl drip ordered, however, limitations given patient's persistent hypotension. Oxycodone 5 mg and hydromorphone IV available as needed. Palliative care recommends discontinuation of morphine sulfate given end-stage renal disease: high risk for neurotoxicity. * Case discussed with bedside RN Kimberli. * Palliative care contact information has been provided to patient's family. * Palliative care will continue to follow-up for further clarifications of goals of care as patient's clinical course continues to evolve. Family receptive to this. . (Lisa Saha) Time Spent Total Floor Time (mins): 77 (Total time to include review and summarization of available medical records to include prior hospitalizations and records from [facility], physical exam, goals of care conversation with patient' s family, case discussion with bedside RN.) >50% Counseling/Coord of Care: Yes (Lisa Saha) Thank you for the opportunity to participate in the care of Mr. Hernandez. (Lisa Saha) Attestation To help prompt me to consider important information that might be impacting today's encounter and assessment, information from prior notes written by myself or my colleagues may have been "brought forward" into today's note. My signature on this note, however, is an attestation that I personally performed the exam, history, and/or decision-making noted today, and, unless otherwise indicated, the interactions with patient, family, and staff as well as the review of records all occurred today. I also attest that the listed assessment and stated plan reflect my best clinical judgment today based on the combination of historical information, prior notes, and today's exam/ interactions. When time spent is documented, it refers only to time spent today by the signer, or if indicated, combined time spent today by collaborating physician/nurse practitioner. (Lisa Saha) Collaborating MD Comments Chart reviewed. Case discussed with palliative care [employer]. Above [employer] note reviewed and I concur. . (Rashid Padgett MD) Lisa Saha Dec 04, 2017 16:46 Rashid Padgett MD Dec 12, 2017 17:05
[2017-12-05] VITALS (47 sets, daily range): BP systolic 75–106; BP diastolic 41–59; PULSE 71–97; RESP 0–29; TEMP 99–99.7; O2SAT 98–100
[2017-12-05] MEDS: GENTAMICIN SULFATE 0.3% OPHT SOLN 5 ML BTL EACH EYE SCH ×7 (00:21→23:57)
[2017-12-05] MEDS: INSULIN ASPART SUPPLEMENTAL SCALE SQ SCH ×6 (00:27→21:36)
[2017-12-05] MEDS: RESP: ALBUTEROL 2.5 MG/IPRATROPIUM 0.5 MG NEB (SCH) NEB ×4 (03:14→19:14)
[2017-12-05] MEDS: PIPERACIL-TAZO 2.25 GM PREMIX 50 ML IV SCH ×3 (05:24→21:36)
[2017-12-05] MEDS: LEVOTHYROXINE SODIUM 200 MCG TAB PO SCH (05:25)
[2017-12-05] MEDS: MIDODRINE 5 MG TAB PO SCH ×3 (05:25→20:29)
--- NOTE | 2017-12-05 08:55 | HHI.CCPN ---
Subjective Remarks/Hospital Course 67-year-old male, has been at [facility] for the last 15 days, transferred to [facility] for vascular evaluation. Patient has known end-stage renal disease and gets hemodialysis every Sunday and Sunday. He had a left upper extremity AV fistula, and it had some problem, so he underwent left upper extremity access revision, left upper extremity distal revascularization and interval ligation, last August 07, 2017. He was discharged, and apparently the fistula was working okay, and during that admission also he had that left middle finger dry gangrene which was felt to be ischemic in nature due to steal syndrome. As an outpatient, his fistula apparently stopped working, so he had a permacath placed in his right IJ. Patient stated that he's had problem on and off with low blood pressure for the last 4 months. The hypotension were getting worse and he ended up getting admitted at [facility] where he stayed for at least 15 days. During that admission, he had some positive blood culture done on November 05 that grew Enterobacter cloaca. Blood culture from November 07 were negative. His permacath was removed on November 07 and the culture of that was negative. Patient underwent L UE bypass brachial-brachial and ligation of the AV fistula. Is scheduled for permacath placement tomorrow morning and remains in the ICU sedated and intubated. Subjective: 11/21: Afebrile .The patient remains intubated and sedated. Plan for permacath placement this a.m.. Will resume ventilator weaning postoperatively. 11/22: Attempted CPAP trials postoperatively yesterday, unsuccessful. Patient continues on phenylephrine currently a 60 mics/minute. Propofol discontinued Precedex infusion initiated CPAP trials are reinitiated this a.m. with plans for SBT later this morning and possible extubation. 11/23: Getting HD. Patient is awake, but very weak. On CPAP but requiring high pressure support 20. Had US guided paracentesis yesterday with 6L fluid removed- chylous. Remains on Precedex and remains on Shon-Synephrine at 60 mcg/min increased to 100 mcg/min 11/24: Remains intubated off all sedation. Requiring Shon-Synephrine at 80 mcg/ min to keep map above 65. HD with 2L removed. Left groin central line was removed and right groin hemodialysis catheter was removed yesterday 11/23/17. New right IJ central line placed yesterday 11/25: Extubated yesterday tolerating well respiratory harris. Remains on Shon- Synephrine to maintain map above 65. Cultures remain negative. Patient intermittently not cooperative with care. He is oriented 2 11/26: At around 2 AM today had episode of unresponsiveness, correlating with hypotension was hard to awake. Currently patient is awake but very lethargic voice is very soft but oriented to person and place. I will hold the Neurontin avoid all sedation currently on Shon-Synephrine at 30 mcg/min. completed hemodialysis today with 3L removed 11/27: Mentation and alertness seems to be slightly improved. TSH elevated at 8.8, increase Synthroid to 150 mcg per day. Patient is oriented to person and place. Remains very weak 11/28: Somnolent but wakes up easily, remains oriented to person. Chest x-ray unchanged. No evidence of new weakness. Discussed with Dr. Jansen 12/03 Reconsult: Patient was found unresponsive he was subsequently intubated and placed on mechanical ventilation. T:100.4 last night. 12/04: Remains encephalopathic, orally intubated on mechanical ventilation. 12/05: Remains encephalopathic, orally intubated on mechanical ventilation. On Levophed for pressor support. Objective Vital Signs Date Time Temp Pulse Resp B/P (MAP) Pulse Ox O2 Delivery O2 Flow Rate FiO2 12/05/17 07:29 100 40 12/05/17 06:00 97 12/05/17 04:00 99.7 16 99/55 (70) 12/03/17 07:14 Nasal Cannula 5.00 Intake and Output 12/05/17 12/05/17 12/06/17 08:00 16:00 00:00 Intake Total 530 ml Balance 530 ml Result Diagram: 12/04/17 0335 12/04/17 1030 Imaging Last Impressions Chest X-Ray 12/02/17 0000 Signed Impressions: Service Date/Time: Saturday, December 02, 2017 18:51 - CONCLUSION: Stable chest x-ray with diffuse right lung airspace consolidation and small right pleural effusion. A mild airspace opacity is present at the left lung base. Sami Deng MD Head CT 11/30/17 0000 Signed Impressions: Service Date/Time: Thursday, November 30, 2017 22:05 - CONCLUSION: 1. No acute findings. No significant change. Uzair Berrios MD Abdomen X-Ray 11/29/17 0000 Signed Impressions: Service Date/Time: November 16:03 - CONCLUSION: NG tube tip extends into the duodenum Sami Burnett MD Cyst Biopsy Asp-Paracentesis US 11/22/17 0000 Signed Impressions: Service Date/Time: November 15:20 - CONCLUSION: Uncomplicated ultrasound guided paracentesis. 6 L of chylous appearing fluid was removed. Taj Oden MD Catheter Placement X-Ray 11/21/17 1554 Signed Impressions: Service Date/Time: Tuesday, November 21, 2017 11:42 - CONCLUSION: Uncomplicated PermaCath placement as above. James Mike MD Lower Extremity Ultrasound 11/13/17 0000 Signed Impressions: Service Date/Time: Monday, November 13, 2017 07:52 - CONCLUSION: No DVT seen in either leg. Jewel Kaiser MD Hand X-Ray 11/13/17 0000 Signed Impressions: Service Date/Time: Monday, November 13, 2017 10:18 - CONCLUSION: Osteoporosis. Extensive arterial calcifications. 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 No definite evidence of bony destruction or osteomyelitis Jared Upton MD Procedures 11/20 Sp LUE angiogram. 11/21 permacath placement Objective Remarks GENERAL: Patient is 67 yo intubated SKIN: Warm and dry. HEAD: Normocephalic. EYES: No scleral icterus. No injection or drainage. NECK: Supple, trachea midline. No JVD or lymphadenopathy. CARDIOVASCULAR: Regular rate and rhythm without murmurs, gallops, or rubs. RESPIRATORY: Orally intubated on mechanical ventilation, Breath sounds equal bilaterally. No wheezing or crackles GASTROINTESTINAL: Abdomen soft, non-tender, nondistended. MUSCULOSKELETAL: No cyanosis, or edema. BACK: Nontender without obvious deformity. No CVA tenderness. Neuro: Intubated, encephalopathic, not following commands. A/P Assessment and Plan Neuro: Metabolic encephalopathy -On fentanyl gtt. for sedation which will be held on 12/05. Monitor neuro status - CT head 11/26 and 11/30 negative -Check EEG, MRI brain couldn't be done as patient has pacer. -Neuro eval, Ammonia level 21 on 11/30 - Suspected metabolic encephalopathy Resp: Acute respiratory failure - - Extubated 11/24/17 Reintubated 12/03 Continue with vent support keep sat >92% Bronchodilators, ICU vent bundle. CVS: Hypotension Bilateral upper extremity ischemia - s/p L UE bypass Reconsult plastics/hand for necrotic digit Monitor HR and BP keep MAP>65mmHg - Midodrine 10 mg every 8 hours - Continue aspirin Plavix - NS 250 cc bolus ordered on 12/04 for hypotension. Started on Levophed for pressor support. - Check cortisol level. Starting Decadron 4 mg IV daily to cover for adrenal insufficiency while awaiting cortisol level. GI: - Large-volume ascites removed 11/22/17 - On Protonix for GI prophylaxis -Continue with tube feeds- Nepro with goal rate 55ml/hr - Add reglan 5mg IV Q8hrly for GI motility on 12/05 : End-stage renal disease - Hemodialysis per nephrology - PermCath placement 11/21 -Monitor renal function, avoid nephrotoxins Heme: Monitor CBC, on Epogen with HD Endo: Diabetes mellitus Hypothyroidism -SSI ( medium scale) for glycemic control -On Synthroid 200mcg daily, TSH 9.7 on 11/30 ID: Bacteremia Sepsis (Enterobacter bacteremia, BC 10/16) Possible left femoral line site infection - Antibiotics per ID (Rocephin switched to Zosyn, Micafungin and 1 dose Vanco given) monitor for signs of infections ( Fever, WBC) DVT GI prophylaxis - Teds SCDs - Subcutaneous heparin - Pepcid Lines: peripheral IV's Condition critical with hypotension secondary to sepsis. Time spent on critical care excluding procedures 30 minutes Yobany Banks MD Dec 05, 2017 08:55
[2017-12-05] MEDS: ASPIRIN EC 81 MG TABEC PO SCH (09:00)
[2017-12-05] MEDS: SODIUM CHLORIDE 0.9% FLUSH 10 ML FLUSH IV FLUSH SCH ×2 (09:00→20:28)
[2017-12-05] MEDS: DOCUSATE SODIUM 50 MG/SENNA 8.6 MG TAB PO SCH ×2 (09:13→20:29)
[2017-12-05] MEDS: CLOPIDOGREL 75 MG TAB PO SCH (09:13)
[2017-12-05] MEDS: DEXAMETHASONE SOD PHOS 4 MG/ML VIAL IV PUSH SCH (09:14)
[2017-12-05] MEDS: HEPARIN SODIUM - SQ 10,000 UNITS/ML VIAL SQ SCH ×2 (09:14→20:29)
[2017-12-05] MEDS: THYROID 60 MG TAB PO SCH ×2 (09:53→20:29)
[2017-12-05] MEDS: CALCIUM ACETATE 667 MG CAP PO SCH ×3 (09:54→17:42)
[2017-12-05] MEDS: BACITRACIN TOP OINT 15 GM TUBE TOPICAL SCH ×2 (09:54→20:30)
[2017-12-05] MEDS: NYSTATIN 100,000 UNIT/GM CREAM 15 GM TOPICAL SCH ×2 (09:54→20:30)
--- NOTE | 2017-12-05 10:53 | HHI.IDPN ---
Subjective Subjective Remarks Patient is a 67-year-old male, has been at [facility] for the last 15 days, transferred to [facility] for vascular evaluation. Patient has known end-stage renal disease and gets hemodialysis every Sunday and Sunday. He had a left upper extremity AV fistula, and it had some problem, so he underwent left upper extremity access revision, left upper extremity distal revascularization and interval ligation, last August 07, 2017. He was discharged, and apparently the fistula was working okay, and during that admission also he had that left middle finger dry gangrene which was felt to be ischemic in nature due to steal syndrome. As an outpatient, his fistula apparently stopped working, so he had a permacath placed in his right IJ. Patient stated that he's had problem on and off with low blood pressure for the last 4 months. The hypotension were getting worse and he ended up getting admitted at [facility] where he stayed for at least 15 days. During that admission, he had some positive blood culture done on November 05 that grew Enterobacter cloaca. Blood culture from November 07 were negative. His permacath was removed on November 07 and the culture of that was negative. Patient was apparently getting IV cefepime, and there was an infectious disease specialist monitoring him for his infection. Patient stated that he's had some reaction to the cefepime and he describes it as burning sensation. Patient is currently afebrile. There was evaluation of his AV fistula which shows thrombosis of his DRIL. He has now been transferred to [facility] for vascular evaluation. Infectious disease consultation has been requested to evaluate for sepsis. Notes reviewed D/W RN [place] low grade Sedated on the vent On pressors - low dose levophed Getting HD Secretions from ET more Lost his central line Sputum with Klebsiella ESBL+ MDR Antibiotics Current Medications Vanco x 1 12/04 Zosyn Micafungin Medications (Trade) Dose Ordered Sig/Renny Route Start Time Stop Time Status Last Admin (NS Flush) 2 ml BID IV FLUSH 11/12/17 21:00 12/05/17 09:00 (Tylenol) 650 mg Q4H PRN PO 11/12/17 20:00 12/04/17 08:36 (Zofran Inj) 4 mg Q6H PRN IVP 11/12/17 20:00 (Narcan Inj) 0.4 mg UNSCH PRN IV PUSH 11/12/17 20:00 (D50w (Vial) Inj) 50 ml UNSCH PRN IV PUSH 11/12/17 23:30 (Glucagon Inj) 1 mg UNSCH PRN OTHER 11/12/17 23:30 (Phoslo) 667 mg TID PO 11/13/17 09:00 12/05/17 09:54 (Ecotrin Ec) 162 mg DAILY PO 11/13/17 09:00 12/04/17 08:36 (Plavix) 75 mg DAILY PO 11/13/17 09:00 Future hold 12/05/17 09:13 (Baciguent Oint) 1 applic Q12HR TOPICAL 11/13/17 21:00 12/05/17 09:54 Sodium Chloride 1,000 ml @ 0 mls/hr Q0M PRN OTHER 11/13/17 14:09 12/03/17 18:45 (Heparin Inj) 8,000 units UNSCH PRN IV FLUSH 11/13/17 14:15 11/15/17 15:23 Sodium Chloride 1,000 ml @ 200 mls/hr Q5H PRN IV 11/13/17 14:09 11/26/17 07:15 Sodium Chloride 1,000 ml @ 0 mls/hr Q0M PRN OTHER 11/13/17 14:09 (Mannitol Inj) 12.5 gm UNSCH PRN IV 11/13/17 14:15 11/17/17 11:53 Albumin Human 100 ml @ 60 mls/hr UNSCH PRN IV 11/13/17 14:15 12/03/17 18:46 (NS Flush) 5 ml UNSCH PRN IV FLUSH 11/13/17 14:15 12/03/17 18:46 (Heparin Inj) UNSCH PRN .XX 11/13/17 14:15 12/03/17 18:48 (Gentamicin Inj) 20 mg UNSCH PRN OTHER 11/13/17 14:15 12/03/17 18:47 (Zofran Inj) 4 mg UNSCH PRN IV PUSH 11/13/17 14:15 (Tylenol) 650 mg UNSCH PRN PO 11/13/17 14:15 11/18/17 08:40 (Benadryl) 25 mg UNSCH PRN PO 11/13/17 14:15 (Nitrostat Sl) 0.4 mg UNSCH PRN SL 11/13/17 14:15 (Catapres) 0.1 mg UNSCH PRN PO 11/13/17 14:15 (Epogen Inj) 4,000 units UNSCH PRN IV PUSH 11/13/17 14:15 12/03/17 18:46 (Gelfoam 12 Mm/7 Mm Top) 1 foam UNSCH PRN TOP 11/13/17 14:15 (Coreg) 3.125 mg BID PO 11/16/17 21:00 Future Hold 11/22/17 08:37 (Neurontin) 100 mg TID PO 11/20/17 18:00 Future Hold 11/25/17 18:34 ([place] Thyroid) 60 mg BID PO 11/20/17 21:00 12/05/17 09:53 (Roxicodone) 5 mg Q4H PRN PO 11/20/17 15:15 (Dilaudid) 2 mg Q4H PRN PO 11/20/17 15:15 (Morphine Inj) 2 mg Q1H PRN IV PUSH 11/20/17 15:15 12/04/17 16:39 (Marleny-Colace) 1 tab BID PO 11/20/17 21:00 12/05/17 09:13 (Milk Of Magnesia Liq) 30 ml Q12H PRN PO 11/20/17 15:15 (Senokot) 17.2 mg Q12H PRN PO 11/20/17 15:15 12/05/17 09:54 (Dulcolax Supp) 10 mg DAILY PRN RECTAL 11/20/17 15:15 (Lactulose Liq) 30 ml DAILY PRN PO 11/20/17 15:15 Propofol 100 ml @ 2.841 mls/ hr TITRATE PRN IV 11/20/17 16:00 Future Hold 11/22/17 03:36 (NS Flush) 5 ml UNSCH PRN IV FLUSH 11/20/17 17:45 (Heparin Inj) 2,000 units UNSCH PRN IV FLUSH 11/20/17 17:45 (Duoneb Neb) 1 ampule Q4HR NEB PRN NEB 11/21/17 08:45 12/03/17 07:13 (Mycostatin Cream) 1 applic Q12HR TOPICAL 11/24/17 14:00 12/05/17 09:54 (Heparin Inj) 5,000 units Q12HR SQ 11/26/17 21:00 12/05/17 09:14 (Tylenol) 500 mg Q6H PRN PO 11/27/17 16:30 (Gentamicin Opht 0.3% Soln) 1 drop Q4HR EACH EYE 11/29/17 16:00 12/05/17 09:54 (Proamatine) 10 mg Q8HR PO 11/30/17 00:00 12/05/17 05:25 (Brethine Inj) 1 mg UNSCH PRN SQ 11/29/17 22:30 (Synthroid) 200 mcg DAILY@0600 PO 12/01/17 06:00 12/05/17 05:25 (NovoLOG SUPPLEMENTAL SCALE) 1 Q4H SQ 12/03/17 13:00 12/05/17 09:00 (Duoneb Neb) 1 ampule Q6HR NEB NEB 12/03/17 11:15 12/05/17 07:41 Fentanyl Citrate 250 ml @ 5 mls/hr TITRATE PRN IV 12/03/17 11:15 (Protonix Inj) 40 mg Q24H IV PUSH 12/03/17 12:00 12/04/17 12:29 Piperacillin Sod/ Tazobactam Sod 50 ml @ 100 mls/hr Q8H IV 12/03/17 14:00 12/05/17 05:24 Micafungin Sodium 100 mg/Sodium Chloride 100 ml @ 100 mls/hr Q24H IV 12/03/17 14:00 12/04/17 13:43 Norepinephrine Bitartrate 250 ml @ 7.5 mls/hr TITRATE PRN IV 12/04/17 09:15 12/04/17 20:58 (Brethine Inj) 1 mg UNSCH PRN SQ 12/04/17 09:15 (Decadron Inj) 4 mg DAILY IV PUSH 12/05/17 09:00 12/05/17 09:14 (Reglan Inj) 5 mg Q8HR IV PUSH 12/05/17 14:00 Lines Permacath site ok. Past Medical History ESRD DM CAD HF. HTN Enlarged liver, and ascites Past Surgical History Pacemaker CABGx4 with mitral valvuloplasty in february 2005 Right fifth toe amputation Right shoulder rotator cuff repair Has had repeated paracentesis to drain his ascites Allergies: Coded Allergies: adhesive (Unverified Adverse Reaction, Severe, SKIN BREAKDOWN/ULCERS, ) Uncoded Allergies: MSG (Allergy, Intermediate, bowel problems, 08/02/17) Objective . Vital Signs Date Time Temp Pulse Resp B/P (MAP) Pulse Ox O2 Delivery O2 Flow Rate FiO2 12/05/17 07:29 100 40 12/05/17 06:00 97 12/05/17 04:00 92 12/05/17 04:00 40 12/05/17 04:00 99.7 92 16 99/55 (70) 100 12/05/17 03:15 100 40 12/05/17 02:00 93 12/05/17 00:30 100 40 12/05/17 00:00 93 12/05/17 00:00 40 12/05/17 00:00 99.4 93 16 106/59 (75) 100 12/04/17 22:00 96 12/04/17 20:58 91 113/57 12/04/17 20:00 99.8 90 16 108/55 (72) 100 12/04/17 20:00 40 12/04/17 20:00 90 12/04/17 19:19 100 40 12/04/17 16:56 100 40 12/04/17 16:00 40 12/04/17 16:00 99.0 78 24 95/51 (66) 100 12/04/17 15:45 79 8 100/54 (69) 100 12/04/17 15:30 96 7 102/57 (72) 100 12/04/17 15:15 94 12 107/57 (74) 100 12/04/17 15:00 90 21 105/53 (70) 100 12/04/17 14:45 91 20 108/56 (73) 100 12/04/17 14:30 93 20 96/55 (69) 100 12/04/17 14:15 95 11 94/52 (66) 100 12/04/17 14:00 96 22 104/57 (73) 100 12/04/17 13:50 96 21 104/59 (74) 100 12/04/17 13:45 96 20 94/52 (66) 100 12/04/17 13:40 96 16 95/52 (66) 100 2/2018 13:35 96 4 94/55 (68) 100 2/18 13:30 95 5 92/50 (64) 100 2//18 13:25 96 12 101/56 (71) 100 2/20/18 13:20 95 12 98/55 (69) 100 2/20/18 13:18 100 40 2/2018 13:15 94 18 99/53 (68) 100 2/18 13:10 94 22 107/57 (74) 100 2/2018 13:05 93 4 103/59 (74) 100 2/18 13:00 92 17 95/53 (67) 100 218 12:27 96 93/52 2 12:25 96 10 93/52 (66) 100 2/18 12:20 97 12 100/56 (71) 100 2/18 12:15 96 4 100/54 (69) 100 2 12:10 96 11 88/51 (63) 100 2 12:05 96 12 92/51 (65) 100 2 12:00 98.7 96 11 92/54 (67) 100 12/04/17 12:00 40 12/04/17 11:55 96 11 81/47 (58) 100 2 11:50 94 8 92/55 (67) 100 2 11:48 96 6 90/50 (63) 100 2 11:45 96 5 67/42 (50) 100 218 11:40 95 10 90/54 (66) 100 2/18 11:35 95 6 89/50 (63) 100 218 11:30 95 5 93/52 (66) 100 218 11:25 96 12 87/54 (65) 100 218 11:20 95 8 86/51 (63) 100 218 11:16 97 40 2//18 11:15 95 22 94/51 (65) 100 2/18 11:10 96 18 91/54 (66) 100 2 11:05 96 16 93/50 (64) 100 2 11:00 96 100/56 (71) 100 . Laboratory Tests Test 12/04/17 03:35 White Blood Count 13.7 TH/MM3 Red Blood Count 2.90 MIL/MM3 Hemoglobin 8.8 GM/DL Hematocrit 27.3 % Mean Corpuscular Volume 94.3 FL Mean Corpuscular Hemoglobin 30.2 PG Mean Corpuscular Hemoglobin Concent 32.0 % Red Cell Distribution Width 16.8 % Platelet Count 143 TH/MM3 Mean Platelet Volume 10.3 FL CBC Comment AUTO DIFF Differential Total Cells Counted 100 Neutrophils % (Manual) 61 % Band Neutrophils % 23 % Lymphocytes % 3 % Monocytes % 11 % Eosinophils % 1 % Neutrophils # (Manual) 11.6 TH/MM3 Metamyelocytes 1 % Differential Comment FINAL DIFF MANUAL Platelet Estimate LOW Platelet Morphology Comment NORMAL Laboratory Tests Test 12/04/17 10:30 Blood Urea Nitrogen 26 MG/DL Creatinine 4.80 MG/DL Random Glucose 212 MG/DL Calcium Level 8.7 MG/DL Sodium Level 140 MEQ/L Potassium Level 3.5 MEQ/L Chloride Level 99 MEQ/L Carbon Dioxide Level 31.5 MEQ/L Anion Gap 10 MEQ/L Estimat Glomerular Filtration Rate 12 ML/MIN Microbiology Date/Time Source Procedure Growth Status 12/03/17 15:00 Blood Peripheral Aerobic Blood Culture - Preliminary NO GROWTH IN 1 DAY Resulted 12/03/17 15:00 Blood Peripheral Anaerobic Blood Culture - Preliminary NO GROWTH IN 1 DAY Resulted 12/03/17 14:45 Blood Peripheral Aerobic Blood Culture - Preliminary NO GROWTH IN 1 DAY Resulted 12/03/17 14:45 Blood Peripheral Anaerobic Blood Culture - Preliminary NO GROWTH IN 1 DAY Resulted 12/03/17 12:39 Sputum Endotracheal Gram Stain - Final Complete 12/03/17 12:39 Sputum Culture - Final Klebsiella Pneumoniae Esbl Pos Multi-Drug Resistant Complete Imaging Last Impressions Chest X-Ray 12/03/17 0000 Signed Impressions: Service Date/Time: Sunday, December 03, 2017 11:33 - CONCLUSION: 1. ET tube tip in good position. 2. Stable configuration of the right lower lung consolidative and right upper and left lower lung mixed infiltrates. Iván Goodman MD Head CT 11/30/17 0000 Signed Impressions: Service Date/Time: Thursday, November 30, 2017 22:05 - CONCLUSION: 1. No acute findings. No significant change. Uzair Berrios MD Abdomen X-Ray 11/29/17 0000 Signed Impressions: Service Date/Time: November 16:03 - CONCLUSION: NG tube tip extends into the duodenum Sami Burnett MD Cyst Biopsy Asp-Paracentesis US 11/22/17 0000 Signed Impressions: Service Date/Time: November 15:20 - CONCLUSION: Uncomplicated ultrasound guided paracentesis. 6 L of chylous appearing fluid was removed. Taj Oden MD Catheter Placement X-Ray 11/21/17 1554 Signed Impressions: Service Date/Time: Tuesday, November 21, 2017 11:42 - CONCLUSION: Uncomplicated PermaCath placement as above. James Mike MD Lower Extremity Ultrasound 11/13/17 0000 Signed Impressions: Service Date/Time: Monday, November 13, 2017 07:52 - CONCLUSION: No DVT seen in either leg. Jewel Kaiser MD Hand X-Ray 11/13/17 0000 Signed Impressions: Service Date/Time: Monday, November 13, 2017 10:18 - CONCLUSION: Osteoporosis. Extensive arterial calcifications. 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 No definite evidence of bony destruction or osteomyelitis Jared Upton MD Physical Exam GENERAL: Sedated on the vent, NAD SKIN: Cool and dry. No rash. Edematous EYES: [place] conjunctiva. No petechia or hemorrhage. No scleral icterus. EARS, NOSE AND THROAT: Orally intubated NECK: Trachea midline, supple and not tender CARDIOVASCULAR: Regular rate and rhythm. Has systolic murmur over L precordium and base of the heart RESPIRATORY: Decreased at both bases, coares eBS ABDOMEN: Soft, and bowel sounds present and hypoactive. No reaction to palpation. EXTREMITIES: No clubbing, cyanosis. Has edema of both feet and UE. Dry gangrene noted. Incision LUE dry, no redness NEUROLOGICAL: sedated LINES: No evidence of infection Assessment & Plan Remarks IMPRESSION Progressive decline in mental status Klebsiella PNA Respiratory failure Possible new sepsis, had fevers last 24 hours Septic Thrombophlebitis: Enterobacter Enterobacter bacteremia, BC 11/05 (+), ?source - permacath C/S negative (?due to previous Abx) - concern with infected thrombus LUE AVF - ?other endovascular focus Thrombosis DRIL LUE AVF S/P Bypass LUE and ligation of AVF and DRIL ESRD on HD MWF Ascites, ?primary liver problem or other etiology LMF dry gangrene Encephalopathy, ?metabolic RECOMMENDATION Follow C/S - deescalate Abx once C/S available Continue Zosyn Continue Micafungin - if BC negative, will D/C Follow temps Monitor progress D/W Loraine Harris MD Dec 05, 2017 10:53
--- NOTE | 2017-12-05 10:56 | HHI.NPPN ---
Subjective History of Present Illness Patient is a 67-year-old male with a history of end-stage renal disease on hemodialysis Sunday/Sunday/ Sunday, diabetes, CAD, CHF, hypertension was transferred from [facility] to be evaluated by vascular surgery. Patient states he was admitted to [facility] because he had low blood pressure readings at home. AV fistula has not been functioning or used for 6- 8 weeks and they have been using a permacath for dialysis. Permacath has been removed secondary to possible infection and vas cath has been placed. He has been treated with cefepime IV. Last dialysis was Sunday and 1.5 L removed. Patient has a necrotic left middle finger that patient states has been going on for the last 12 weeks. Additional Remarks Patient is sedated on ventilator Seen during dialysis (Kathleen Olguin) Review of Systems Genitourinary Remarks (Kathleen Olguin) Objective Data Data Vital Signs Date Time Temp Pulse Resp B/P (MAP) Pulse Ox O2 Delivery O2 Flow Rate FiO2 12/05/17 07:29 100 40 12/05/17 06:00 97 12/05/17 04:00 92 12/05/17 04:00 40 12/05/17 04:00 99.7 92 16 99/55 (70) 100 12/05/17 03:15 100 40 12/05/17 02:00 93 12/05/17 00:30 100 40 12/05/17 00:00 93 12/05/17 00:00 40 12/05/17 00:00 99.4 93 16 106/59 (75) 100 12/04/17 22:00 96 12/04/17 20:58 91 113/57 12/04/17 20:00 99.8 90 16 108/55 (72) 100 12/04/17 20:00 40 12/04/17 20:00 90 12/04/17 19:19 100 40 12/04/17 16:56 100 40 12/04/17 16:00 40 12/04/17 16:00 99.0 78 24 95/51 (66) 100 12/04/17 15:45 79 8 100/54 (69) 100 12/04/17 15:30 96 7 102/57 (72) 100 2/20/18 15:15 94 12 107/57 (74) 100 22018 15:00 90 21 105/53 (70) 100 218 14:45 91 20 108/56 (73) 100 2/18 14:30 93 20 96/55 (69) 100 2/2018 14:15 95 11 94/52 (66) 100 2 14:00 96 22 104/57 (73) 100 2 13:50 96 21 104/59 (74) 100 2 13:45 96 20 94/52 (66) 100 2/ 13:40 96 16 95/52 (66) 100 2 13:35 96 4 94/55 (68) 100 2 13:30 95 5 92/50 (64) 100 2 13:25 96 12 101/56 (71) 100 2 13:20 95 12 98/55 (69) 100 2 13:18 100 40 2 13:15 94 18 99/53 (68) 100 2 13:10 94 22 107/57 (74) 100 2 13:05 93 4 103/59 (74) 100 2 13:00 92 17 95/53 (67) 100 12/04/17 12:27 96 93/52 2 12:25 96 10 93/52 (66) 100 2 12:20 97 12 100/56 (71) 100 12/04/17 12:15 96 4 100/54 (69) 100 12/04/17 12:10 96 11 88/51 (63) 100 2 12:05 96 12 92/51 (65) 100 218 12:00 98.7 96 11 92/54 (67) 100 2 12:00 40 12/04/17 11:55 96 11 81/47 (58) 100 218 11:50 94 8 92/55 (67) 100 2/18 11:48 96 6 90/50 (63) 100 2 11:45 96 5 67/42 (50) 100 2 11:40 95 10 90/54 (66) 100 2//18 11:35 95 6 89/50 (63) 100 12/04/17 11:30 95 5 93/52 (66) 100 12/04/17 11:25 96 12 87/54 (65) 100 12/04/17 11:20 95 8 86/51 (63) 100 12/04/17 11:16 97 40 12/04/17 11:15 95 22 94/51 (65) 100 12/04/17 11:10 96 18 91/54 (66) 100 12/04/17 11:05 96 16 93/50 (64) 100 12/04/17 11:00 96 100/56 (71) 100 (Kathleen Olguin) -: 12/04/17 0335 12/04/17 1030 Tubes & Lines: Perma-Cath (Kathleen Olguin) Physical Exam General Appearance: No Acute Distress (Kathleen Olguin) Eyes Eye Exam: Pupils Equal (Kathleen Olguin) Throat Throat Exam: Oral Mucosa [place] & Moist Throat Remarks NG tube (Kathleen Olguin) Pulmonary Resp Exam: Breath Sounds Equal, No Distress, Rhonchi, Decreased Bases (Kathleen Olguin) Cardiology CV Exam: Regular (Kathleen Olguin) Gastrointestinal/Abdomen GI Exam: Soft, Non-Tender, Bowel Sounds Present (Kathleen Olguin) Integumentary Skin Remarks necrotic area on tip on left hand middle finger (Kathleen Olguin) Extremeties Extremities Exam: Moderate Edema (Left arm and hand swelling.) (Kathleen Olguin) Neurologic Neuro Exam: Sedated (Kathleen Olugin) Assessment/Plan Discussed Condition With: Spouse Assessment Summary: End Stage Renal Disease Problem List: (1) ESRD (end stage renal disease) on dialysis ICD Codes: N18.6 - End stage renal disease; Z99.2 - Dependence on renal dialysis Plan: Dialysis MWF s/p L UE bypass 2/6 ligation of AVF and DRIL On norepinephrine for blood pressure support. Antibiotics per ID ESBL noted in urine Blood pressure remains on low side. HGB 8.8 yesterday Epogen with dialysis Seen during dialysis plan to remove 1 liter. (2) Gangrene of finger of left hand ICD Codes: I96 - Gangrene, not elsewhere classified Plan: necrotic area on left hand middle finger (3) AV fistula occlusion ICD Codes: T82.898A - Other specified complication of vascular prosthetic devices, implants and grafts, initial encounter Plan: s/p L UE bypass 2/6 ligation of AVF and DRIL (4) Diabetes mellitus ICD Codes: E11.9 - Type 2 diabetes mellitus without complications Plan: Maintain BS between 140mg/dl to 180 mg/dl (Kathleen Olguin) Problem List: (1) ESRD (end stage renal disease) on dialysis ICD Codes: N18.6 - End stage renal disease; Z99.2 - Dependence on renal dialysis Plan: Dialysis MWF s/p L UE bypass 2/6 ligation of AVF and DRIL On norepinephrine for blood pressure support. Antibiotics per ID ESBL noted in urine Blood pressure remains on low side. HGB 8.8 yesterday Epogen with dialysis Seen during dialysis plan to remove 1 liter. Patient seen and examined, agree with above. D/W the , HD as schedule. (2) Gangrene of finger of left hand ICD Codes: I96 - Gangrene, not elsewhere classified Plan: necrotic area on left hand middle finger (3) AV fistula occlusion ICD Codes: T82.898A - Other specified complication of vascular prosthetic devices, implants and grafts, initial encounter Plan: s/p L UE bypass 2/6 ligation of AVF and DRIL (4) Diabetes mellitus ICD Codes: E11.9 - Type 2 diabetes mellitus without complications Plan: Maintain BS between 140mg/dl to 180 mg/dl (Kim Santos MD) Kathleen Olguin Dec 05, 2017 10:56 Kim Santos MD Dec 05, 2017 18:56
[2017-12-05] MEDS: MICAFUNGIN INJ 100 MG in SODIUM CHLORIDE 0.9% INJ 100 ML IV SCH (13:15)
[2017-12-05] MEDS: PANTOPRAZOLE SODIUM 40 MG VIAL IV PUSH SCH (13:16)
[2017-12-05] MEDS: METOCLOPRAMIDE HCL 10 MG/2 ML VIAL IV PUSH SCH ×2 (13:16→20:28)
--- NOTE | 2017-12-05 16:34 | HHI.HCPN ---
Reason for visit a. To assist with evaluation and management of symptoms including: Pain, shortness of breath, debility. b. To assist medical decision maker(s) with: better understanding of current medical conditions; weighing benefits/burdens of medical treatment options; making medical treatment decisions. . (Lisa Saha) Subjective/Interval History Palliative care follow-up for further clarifications of goals of care. Patient seen in medical ICU. Patient briefly opening eyes to verbal stimuli, not following commands. Remains endotracheally intubated on mechanical ventilation. Thick lim secretions noted, sputum culture positive for Klebsiella pneumoniae -ESBL. Patient with temperature the past 24 hours, max temp yesterday 101.6, today 99.8. Persistent leukocytosis with WBC 13.7. Infectious disease following. He underwent hemodialysis earlier today, 1 L removed. Met with patient's Jeanine at bedside. Medical update provided. Goals of therapy remain aggressive, allow a few more days for clinical improvement. Shared concerns of patient's overall status to include multiple chronic ongoing comorbidities, prolonged hospitalization, acute events to include sepsis and generalized physical deconditioning. Reviewed the patient is a very high risk for further complications, continue decline and . reiterated that family will NOT proceed with tracheostomy or PEG tube placement if patient is unable to medically extubate. requesting family meeting with [facility] for tomorrow 12/06 at 10:30 AM. Case discussed with Dr. Banks, Dr. Santos and bedside RN. . Family/friend interactions See interval note. . (Lisa Saha) Advance Directives Living Will: Copy in medical record Health Care Surrogate: Copy in medical record (Lisa Saha) Advance Directive Specifics Date completed: 12/05/2013. . Health Care Surrogate(s): Patient designated her son Derrick Hernandez as surrogate decision maker, alternate surrogate is Jeanine and son Iván. . Documented care wishes: Living will with standard verbiage as it pertains to terminal condition, end- stage condition or persistent vegetative state. . Significant change in goals: Goals remain aggressive. . (Lisa Saha) Objective Vital Signs Date Time Temp Pulse Resp B/P (MAP) Pulse Ox O2 Delivery O2 Flow Rate FiO2 2/21/18 14:56 100 40 12/05/17 12:04 74 12/05/17 12:00 74 12/05/17 12:00 74 16 75/44 (54) 100 12/05/17 11:49 74 6 79/45 (56) 100 12/05/17 11:49 74 12/05/17 11:45 74 12/05/17 11:45 74 15 81/45 (57) 100 12/05/17 11:30 74 12/05/17 11:30 74 5 87/52 (64) 100 12/05/17 11:27 73 12/05/17 11:27 73 0 91/51 (64) 100 12/05/17 11:15 74 12/05/17 11:15 74 15 75/41 (52) 100 12/05/17 11:00 74 12/05/17 11:00 74 9 91/55 (67) 100 12/05/17 10:57 100 40 12/05/17 10:45 75 9 89/50 (63) 100 12/05/17 10:45 75 12/05/17 10:30 75 10 83/54 (64) 100 12/05/17 10:30 75 12/05/17 10:15 75 14 87/51 (63) 100 12/05/17 10:15 75 12/05/17 10:00 76 12/05/17 10:00 76 16 87/53 (64) 100 12/05/17 09:45 75 12/05/17 09:45 75 20 91/52 (65) 100 12/05/17 09:30 75 12/05/17 09:30 75 9 95/51 (66) 100 12/05/17 09:15 75 12/05/17 09:15 75 8 79/48 (58) 100 12/05/17 09:00 74 12/05/17 09:00 74 25 101/57 (72) 100 12/05/17 08:45 74 25 85/50 (62) 100 12/05/17 08:45 74 12/05/17 08:31 74 20 105/56 (72) 99 12/05/17 08:31 74 12/05/17 08:30 74 29 100 12/05/17 08:15 74 25 88/50 (63) 100 12/05/17 08:15 74 12/05/17 08:00 99.0 12/05/17 08:00 40 12/05/17 08:00 74 25 89/50 (63) 100 12/05/17 08:00 74 12/05/17 07:29 100 40 12/05/17 06:00 97 12/05/17 04:00 92 12/05/17 04:00 40 12/05/17 04:00 99.7 92 16 99/55 (70) 100 12/05/17 03:15 100 40 12/05/17 02:00 93 12/05/17 00:30 100 40 12/05/17 00:00 93 12/05/17 00:00 40 12/05/17 00:00 99.4 93 16 106/59 (75) 100 12/04/17 22:00 96 12/04/17 20:58 91 113/57 12/04/17 20:00 99.8 90 16 108/55 (72) 100 12/04/17 20:00 40 12/04/17 20:00 90 12/04/17 19:19 100 40 12/04/17 16:56 100 40 Intake & Output 12/05/17 12/05/17 06:59 18:59 Intake Total 580 ml Output Total 1000 ml Balance 580 ml -1000 ml IV Total 50 ml Tube Feeding 530 ml Hemodialysis 1000 ml # Bowel Movements 0 Physical Exam CONSTITUTIONAL/GENERAL: This is an adequately nourished patient, in no apparent distress. TUBES/LINES/DRAINS: ETT, OG, right Vas-Cath, Reese catheter, SCDs, bilateral soft wrist restraints. Bite guard. SKIN: No jaundice, rashes, or lesions. Ecchymoses on upper extremities. Skin temperature appropriate. Not diaphoretic. Necrotic multiple digits bilaterally. HEAD: Atraumatic. Normocephalic. EYES: Pupils equal and round and reactive. No scleral icterus. No injection or drainage. ENT: Hearing grossly normal. Nose without bleeding or purulent drainage. Moist oral mucosa. NECK: Trachea midline. Supple, nontender. CARDIOVASCULAR: Regular rate and rhythm. Peripheral pedal pulses symmetric. RESPIRATORY/CHEST: Symmetric, unlabored respirations. Coarse breath sounds bilaterally. Objective intubated on mechanical ventilation. GASTROINTESTINAL: Abdomen obese, large, round. Bowel sounds present. GENITOURINARY: Without palpable bladder distension. Reese catheter in place. MUSCULOSKELETAL: Extremities without clubbing. Significant weeping edema to bilateral upper extremities, right more than left. NEUROLOGICAL: Briefly opening eyes to tactile stimuli. Not following commands are attempting to communicate. PSYCHIATRIC: Able to assess secondary to clinical condition. Appears calm. . (Lisa Saha) Diagnostic Tests Laboratory Laboratory Tests Test 12/02/17 18:43 12/03/17 04:09 12/04/17 03:35 12/04/17 10:30 Blood Gas Puncture Site RT RADIAL Blood Gas Patient Temperature 98.6 Blood Gas HCO3 29 mmol/L (22-26) Blood Gas Base Excess 3.7 mmol/L (-2-2) Blood Gas Oxygen Saturation 97 % (90-100) Arterial Blood pH 7.33 (7.380-7.420) Arterial Blood Partial Pressure CO2 57 mmHg (38-42) Arterial Blood Partial Pressure O2 233 mmHg (61-120) Arterial Blood Oxygen Content 12.8 Vol % (12.0-20.0) Arterial Blood Carboxyhemoglobin 1.4 % (0-4) Arterial Blood Methemoglobin 1.2 % (0-2) Blood Gas Hemoglobin 9.0 G/DL (12.0-16.0) Oxygen Delivery Device Non-Rebreathing Mask Blood Gas Liter Flow 15 L/M Blood Gas Inspired Oxygen 100 % White Blood Count 14.3 TH/MM3 (4.0-11.0) 13.7 TH/MM3 (4.0-11.0) Red Blood Count 3.25 MIL/MM3 (4.50-5.90) 2.90 MIL/MM3 (4.50-5.90) Hemoglobin 9.6 GM/DL (13.0-17.0) 8.8 GM/DL (13.0-17.0) Hematocrit 31.0 % (39.0-51.0) 27.3 % (39.0-51.0) Mean Corpuscular Volume 95.2 FL (80.0-100.0) 94.3 FL (80.0-100.0) Mean Corpuscular Hemoglobin 29.5 PG (27.0-34.0) 30.2 PG (27.0-34.0) Mean Corpuscular Hemoglobin Concent 31.0 % (32.0-36.0) 32.0 % (32.0-36.0) Red Cell Distribution Width 17.4 % (11.6-17.2) 16.8 % (11.6-17.2) Platelet Count 160 TH/MM3 (150-450) 143 TH/MM3 (150-450) Mean Platelet Volume 9.4 FL (7.0-11.0) 10.3 FL (7.0-11.0) Blood Urea Nitrogen 24 MG/DL (7-18) 26 MG/DL (7-18) Creatinine 6.04 MG/DL (0.60-1.30) 4.80 MG/DL (0.60-1.30) Random Glucose 127 MG/DL (74-106) 212 MG/DL (74-106) Calcium Level 9.5 MG/DL (8.5-10.1) 8.7 MG/DL (8.5-10.1) Magnesium Level 2.3 MG/DL (1.5-2.5) Sodium Level 140 MEQ/L (136-145) 140 MEQ/L (136-145) Potassium Level 4.2 MEQ/L (3.5-5.1) 3.5 MEQ/L (3.5-5.1) Chloride Level 99 MEQ/L (98-107) 99 MEQ/L (98-107) Carbon Dioxide Level 28.3 MEQ/L (21.0-32.0) 31.5 MEQ/L (21.0-32.0) Anion Gap 13 MEQ/L (5-15) 10 MEQ/L (5-15) Estimat Glomerular Filtration Rate 9 ML/MIN (>89) 12 ML/MIN (>89) CBC Comment AUTO DIFF Differential Total Cells Counted 100 Neutrophils % (Manual) 61 % (16-70) Band Neutrophils % 23 % (0-6) Lymphocytes % 3 % (9-44) Monocytes % 11 % (0-8) Eosinophils % 1 % (0-4) Neutrophils # (Manual) 11.6 TH/MM3 (1.8-7.7) Metamyelocytes 1 % (0-1) Differential Comment FINAL DIFF MANUAL Platelet Estimate LOW (NORMAL) Platelet Morphology Comment NORMAL (NORMAL) Test 12/05/17 04:00 12/05/17 12:15 Random Vancomycin Level 26.5 COMMENT Random Cortisol 16.2 MCG/DL (Lisa Saha) Result Diagram: 12/04/17 0335 12/04/17 1030 Microbiology Microbiology Date/Time Source Procedure Growth Status 12/03/17 15:00 Blood Peripheral Aerobic Blood Culture - Preliminary NO GROWTH IN 2 DAYS Resulted 12/03/17 15:00 Blood Peripheral Anaerobic Blood Culture - Preliminary NO GROWTH IN 2 DAYS Resulted 12/03/17 14:45 Blood Peripheral Aerobic Blood Culture - Preliminary NO GROWTH IN 2 DAYS Resulted 12/03/17 14:45 Blood Peripheral Anaerobic Blood Culture - Preliminary NO GROWTH IN 2 DAYS Resulted 12/03/17 12:39 Sputum Endotracheal Gram Stain - Final Complete 12/03/17 12:39 Sputum Culture - Final Klebsiella Pneumoniae Esbl Pos Multi-Drug Resistant Complete Procedures * 11/20/17: Left brachial-brachial bypass using vein with interposition graft * 11/21/17: Permacath placement. * 11/20/17: Endotracheal intubation. * 11/22/17: Paracenteses, 6 L removed. * 11/24/17: Medical extubation * 12/03/17: Reintubation . (Lisa Saha) Assessment and Plan Disease Oriented Problem List: (1) Sepsis (2) Acute respiratory failure (3) Metabolic encephalopathy (4) ESRD (end stage renal disease) on dialysis (5) Gangrene of finger of left hand Symptom Scale: (1) Pain 0-10 Scale: Unable to quantify Pertinent Non-Medical Issues Psychosocial: Patient is originally from [place]. Moved to [place] 28 years ago. Currently for the past 34 years. Has a total of 4 children, 2 with current . 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 Spiritual: Adventism nat[place]. Legal: Advance directives completed. Ethical issues impacting care: No ethical issues identified. . Important Contacts Son Derrick/[facility] Patient's Jeanine Son Iván . Prognosis Mr. Hernandez is a 67-year-old male with a medical history significant for end- stage renal disease on hemodialysis, CAD status post CABG in 2004, CHF, hypertension, diabetes mellitus. Patient was transferred from [facility] to be evaluated by vascular surgery secondary to occluded left AV fistula at the proximal anastomosis as well as ischemic digits. Clinical course complicated by septic bacteremia, respiratory failure requiring intubation and mechanical ventilation, severe metabolic encephalopathy and hypotension. Patient at a very high risk for further complications, continue decline and . Overall prognosis is guarded at this time. . Code Status: Full Code Plan * CODE STATUS: FULL code. Risks, benefits and limitations of CPR discussed with family given patient's clinical condition. * HEALTHCARE DECISION-MAKING: Patient unable to participating in medical decision-making secondary to clinical condition, severe encephalopathy. Unclear if he will regain medical decision-making capacity. Advanced directives completed, patient has elected her son Derrick as healthcare surrogate decision maker, alternate surrogate is his Jeanine AND son Iván. * GOALS OF CARE: Goals of therapy remain aggressive, allow a few more days for clinical improvement -until early next week. Shared with family concerns of patient's overall clinical status to include multiple chronic ongoing comorbidities, prolonged hospitalization, acute events to include sepsis and generalized physical deconditioning. Reviewed the patient is a very high risk for further complications, continue decline and . reiterated that family will NOT proceed with tracheostomy or PEG tube placement if patient is unable to medically extubate. requesting family meeting with [facility] for tomorrow 12/06 at 10:30 AM. * SYMPTOMS: = Pain, secondary to multiple interventions, lines, necrotic digits , prolonged hospitalization. Fentanyl drip ordered, however, limitations given patient's persistent hypotension. Oxycodone 5 mg and hydromorphone IV available as needed. Palliative care recommends discontinuation of morphine sulfate given end-stage renal disease: high risk for neurotoxicity. * Case discussed with Dr. Banks, Dr. Santos and bedside RN. * Palliative care contact information has been provided to patient's family. * Palliative care will continue to follow-up for further clarifications of goals of care as patient's clinical course continues to evolve. Family receptive to this. . (Lisa Saha) Time Spent Total Floor Time (mins): 37 (Total time to include review medical records, physical exam, goals of care conversation with patient's , case discussion with dispute resolution specialist, nephrology and bedside RN.) >50% Counseling/Coord of Care: Yes (Lisa Saha) Attestation To help prompt me to consider important information that might be impacting today's encounter and assessment, information from prior notes written by myself or my colleagues may have been "brought forward" into today's note. My signature on this note, however, is an attestation that I personally performed the exam, history, and/or decision-making noted today, and, unless otherwise indicated, the interactions with patient, family, and staff as well as the review of records all occurred today. I also attest that the listed assessment and stated plan reflect my best clinical judgment today based on the combination of historical information, prior notes, and today's exam/ interactions. When time spent is documented, it refers only to time spent today by the signer, or if indicated, combined time spent today by collaborating physician/nurse practitioner. (Lisa Saha) Collaborating MD Comments Chart reviewed. Case discussed with palliative care DRIER OPERATOR. Above DRIER OPERATOR note reviewed and I concur. . (Rashid Padgett MD) Lisa Saha Dec 05, 2017 16:34 Rashid Padgett MD Dec 12, 2017 17:13
[2017-12-06] VITALS (22 sets, daily range): BP systolic 88–119; BP diastolic 50–58; PULSE 68–96; RESP 19–29; TEMP 98.2–98.8; O2SAT 96–100
[2017-12-06] MEDS: INSULIN ASPART SUPPLEMENTAL SCALE SQ SCH ×6 (01:14→20:47)
[2017-12-06] MEDS: RESP: ALBUTEROL 2.5 MG/IPRATROPIUM 0.5 MG NEB (SCH) NEB ×4 (03:06→19:28)
[2017-12-06] MEDS: GENTAMICIN SULFATE 0.3% OPHT SOLN 5 ML BTL EACH EYE SCH ×6 (04:53→23:07)
[2017-12-06] MEDS: METOCLOPRAMIDE HCL 10 MG/2 ML VIAL IV PUSH SCH ×3 (04:56→20:48)
[2017-12-06] MEDS: LEVOTHYROXINE SODIUM 200 MCG TAB PO SCH (04:57)
[2017-12-06] MEDS: PIPERACIL-TAZO 2.25 GM PREMIX 50 ML IV SCH ×3 (04:57→20:46)
[2017-12-06] MEDS: MIDODRINE 5 MG TAB PO SCH ×3 (04:57→20:47)
--- NOTE | 2017-12-06 07:40 | PD.VS.PN ---
Subjective Procedure(s): L brachial-brachial bypass, ligation of AVF Subjective/Hospital Course much more alert today following complex commands remains intubated Objective Vitals/I&O Date Time Temp Pulse Resp B/P (MAP) Pulse Ox O2 Delivery O2 Flow Rate FiO2 12/06/17 06:00 40 12/06/17 06:00 69 12/06/17 04:00 98.3 70 20 110/55 (73) 100 12/06/17 04:00 70 12/06/17 04:00 40 12/06/17 03:07 100 40 12/06/17 02:00 40 12/06/17 00:00 72 12/06/17 00:00 98.8 72 19 88/50 (63) 100 12/06/17 00:00 40 12/05/17 22:20 98 40 12/05/17 22:00 40 12/05/17 20:00 99.0 81 18 93/52 (66) 100 12/05/17 20:00 81 12/05/17 20:00 40 12/05/17 19:11 99 40 12/05/17 18:00 40 12/05/17 17:00 76 26 92/54 (67) 100 12/05/17 16:45 74 12/05/17 16:45 74 28 91/52 (65) 100 12/05/17 16:30 75 12/05/17 16:30 75 26 93/52 (66) 100 12/05/17 16:15 74 12/05/17 16:15 74 23 94/52 (66) 100 12/05/17 16:00 40 12/05/17 16:00 75 25 97/54 (68) 100 12/05/17 16:00 75 12/05/17 15:45 80 12/05/17 15:30 73 12/05/17 15:23 73 12/05/17 15:15 72 12/05/17 15:00 71 12/05/17 14:56 100 40 12/05/17 14:45 72 12/05/17 14:30 73 12/05/17 14:15 72 12/05/17 14:00 73 12/05/17 12:04 74 12/05/17 12:00 74 12/05/17 12:00 40 12/05/17 12:00 74 16 75/44 (54) 100 12/05/17 11:49 74 6 79/45 (56) 100 12/05/17 11:49 74 12/05/17 11:45 74 12/05/17 11:45 74 15 81/45 (57) 100 12/05/17 11:30 74 12/05/17 11:30 74 5 87/52 (64) 100 12/05/17 11:27 73 12/05/17 11:27 73 0 91/51 (64) 100 12/05/17 11:15 74 218 11:15 74 15 75/41 (52) 100 12/05/17 11:00 74 12/05/17 11:00 74 9 91/55 (67) 100 12/05/17 10:57 100 40 12/05/17 10:45 75 9 89/50 (63) 100 12/05/17 10:45 75 12/05/17 10:30 75 10 83/54 (64) 100 12/05/17 10:30 75 12/05/17 10:15 75 14 87/51 (63) 100 12/05/17 10:15 75 12/05/17 10:00 76 12/05/17 10:00 76 16 87/53 (64) 100 12/05/17 09:45 75 12/05/17 09:45 75 20 91/52 (65) 100 12/05/17 09:30 75 12/05/17 09:30 75 9 95/51 (66) 100 12/05/17 09:15 75 12/05/17 09:15 75 8 79/48 (58) 100 12/05/17 09:00 74 12/05/17 09:00 74 25 101/57 (72) 100 12/05/17 08:45 74 25 85/50 (62) 100 12/05/17 08:45 74 12/05/17 08:31 74 20 105/56 (72) 99 12/05/17 08:31 74 18 08:30 74 29 100 12/05/17 08:15 74 25 88/50 (63) 100 12/05/17 08:15 74 12/05/17 08:00 99.0 12/05/17 08:00 40 12/05/17 08:00 74 25 89/50 (63) 100 12/05/17 08:00 74 12/06/17 12/06/17 12/06/17 07:00 15:00 23:00 Intake Total 600 ml Balance 600 ml Exam: L UE incision c/d/i no erythema strong Doppler signals in wrist Laboratory Laboratory Tests Test 12/05/17 12:15 Random Cortisol 16.2 Date/Time Source Procedure Growth Status 12/03/17 15:00 Blood Peripheral Aerobic Blood Culture - Preliminary NO GROWTH IN 2 DAYS Resulted 12/03/17 15:00 Blood Peripheral Anaerobic Blood Culture - Preliminary NO GROWTH IN 2 DAYS Resulted 11/22/17 15:38 Fluid Peritoneal Fluid Gram Stain - Final Complete 11/22/17 15:38 Fluid Peritoneal Fluid Body Fluid Culture - Final NO GROWTH IN 72 HRS.--AEROBICALLY OR ... Complete 12/03/17 12:39 Sputum Endotracheal Gram Stain - Final Complete 12/03/17 12:39 Sputum Culture - Final Klebsiella Pneumoniae Esbl Pos Multi-Drug Resistant Complete 11/23/17 17:40 Catheter Tip Central Venous Line Fungal Culture - Final Complete Assessment and Plan Plan S/p L UE bypass, access ligation UE warm and bypass patent by exam Plan 1. wean vent 2. continue pulse checks 3. leave priya in place for another 2 weeks - likely delayed wound healing Discharge Planning Anytime from a vascular surgery standpoint but clearly many other issues (ID, mental status, cardiac, renal) Issa Jansen MD Dec 06, 2017 07:40
[2017-12-06] MEDS: HEPARIN SODIUM - SQ 10,000 UNITS/ML VIAL SQ SCH ×2 (08:53→20:48)
[2017-12-06] MEDS: THYROID 60 MG TAB PO SCH ×2 (08:53→20:47)
[2017-12-06] MEDS: DEXAMETHASONE SOD PHOS 4 MG/ML VIAL IV PUSH SCH (08:53)
[2017-12-06] MEDS: CALCIUM ACETATE 667 MG CAP PO SCH ×3 (08:53→17:39)
[2017-12-06] MEDS: CLOPIDOGREL 75 MG TAB PO SCH (08:53)
[2017-12-06] MEDS: NYSTATIN 100,000 UNIT/GM CREAM 15 GM TOPICAL SCH ×2 (08:55→20:50)
[2017-12-06] MEDS: BACITRACIN TOP OINT 15 GM TUBE TOPICAL SCH ×2 (08:55→20:49)
[2017-12-06] MEDS: SODIUM CHLORIDE 0.9% FLUSH 10 ML FLUSH IV FLUSH SCH ×2 (08:56→20:46)
[2017-12-06] MEDS: DOCUSATE SODIUM 50 MG/SENNA 8.6 MG TAB PO SCH ×2 (09:00→20:49)
[2017-12-06] MEDS: ASPIRIN EC 81 MG TABEC PO SCH (09:00)
[2017-12-06] MEDS: MICAFUNGIN INJ 100 MG in SODIUM CHLORIDE 0.9% INJ 100 ML IV SCH (12:48)
[2017-12-06] MEDS: PANTOPRAZOLE SODIUM 40 MG VIAL IV PUSH SCH (12:49)
--- NOTE | 2017-12-06 13:12 | HHI.HCPN ---
Reason for visit a. To assist with evaluation and management of symptoms including: Pain, shortness of breath, debility. b. To assist medical decision maker(s) with: better understanding of current medical conditions; weighing benefits/burdens of medical treatment options; making medical treatment decisions. . (Lisa Saha) Subjective/Interval History Palliative care follow-up for further clarifications of goals of care. Patient seen in medical ICU. More awake and interactive than yesterday. Opening eyes, following some simple commands. Attempting to communicate by mouthing words. Patient on CPAP trial for a few hours this morning, off sedation. Febrile, stable hemodynamically. No new laboratory or imaging for review. Met with patient's Jeanine and 2 sons Derrick and Iván. Medical update provided. Review plan for medical extubation today. Goals of care reassess. Family electing to change CODE STATUS from full code to DNR/DNI. Family verbalized NOT wishing for patient to be reintubated or do any cardiac resuscitation. Goals of therapy remain aggressive short of no code. Family wishing to allow a few more days to reevaluate patient's clinical condition. Reviewed that patient is at a very high risk for further complications, continued decline and . Family verbalized understanding. Hospice philosophy and benefits introduced. Family receptive to hospice should patient' s clinical condition worsen. Reviewed case with Dr. Banks bedside RN. . Family/friend interactions See interval note. . (Lisa Saha) Advance Directives Living Will: Copy in medical record Health Care Surrogate: Copy in medical record (Lisa Saha) Advance Directive Specifics Date completed: 12/05/2013. . Health Care Surrogate(s): Patient designated her son Derrick Hernandez as surrogate decision maker, alternate surrogate is Jeanine and son Iván. . Documented care wishes: Living will with standard verbiage as it pertains to terminal condition, end- stage condition or persistent vegetative state. . Significant change in goals: Aggressive short of no code. . (Lisa Saha) Objective Vital Signs Date Time Temp Pulse Resp B/P (MAP) Pulse Ox O2 Delivery O2 Flow Rate FiO2 12/06/17 10:20 100 40 12/06/17 09:30 93 26 103/53 (70) 100 12/06/17 09:01 96 24 113/56 (75) 100 12/06/17 08:30 83 23 106/53 (70) 100 12/06/17 08:00 40 12/06/17 08:00 75 26 119/54 (75) 100 12/06/17 07:31 99 Ventilator 40 12/06/17 07:31 40 12/06/17 07:31 99 40 12/06/17 06:00 40 12/06/17 06:00 69 12/06/17 04:00 98.3 70 20 110/55 (73) 100 12/06/17 04:00 70 12/06/17 04:00 40 12/06/17 03:07 100 40 12/06/17 02:00 40 12/06/17 00:00 72 12/06/17 00:00 98.8 72 19 88/50 (63) 100 12/06/17 00:00 40 12/05/17 22:20 98 40 12/05/17 22:00 40 12/05/17 20:00 99.0 81 18 93/52 (66) 100 12/05/17 20:00 81 12/05/17 20:00 40 12/05/17 19:11 99 40 12/05/17 18:00 40 12/05/17 17:00 76 26 92/54 (67) 100 12/05/17 16:45 74 12/05/17 16:45 74 28 91/52 (65) 100 12/05/17 16:30 75 12/05/17 16:30 75 26 93/52 (66) 100 18 16:15 74 18 16:15 74 23 94/52 (66) 100 12/05/17 16:00 40 12/05/17 16:00 75 25 97/54 (68) 100 12/05/17 16:00 75 18 15:45 80 18 15:30 73 18 15:23 73 18 15:15 72 18 15:00 71 12/05/17 14:56 100 40 12/05/17 14:45 72 12/05/17 14:30 73 18 14:15 72 18 14:00 73 Intake & Output 12/06/17 12/06/17 07:00 19:00 Intake Total 650 ml Balance 650 ml IV Total 100 ml Tube Feeding 550 ml # Bowel Movements 2 Physical Exam CONSTITUTIONAL/GENERAL: This is an adequately nourished patient, in no apparent distress. TUBES/LINES/DRAINS: ETT, OG, right Vas-Cath, Reese catheter, SCDs, bilateral soft wrist restraints. SKIN: No jaundice, rashes, or lesions. Ecchymoses on upper extremities. Skin temperature appropriate. Not diaphoretic. multiple necrotic digits bilaterally. HEAD: Atraumatic. Normocephalic. EYES: Pupils equal and round and reactive. No scleral icterus. No injection or drainage. ENT: Hearing grossly normal. Nose without bleeding or purulent drainage. Moist oral mucosa. NECK: Trachea midline. Supple, nontender. CARDIOVASCULAR: Regular rate and rhythm. Peripheral pedal pulses symmetric. RESPIRATORY/CHEST: Symmetric, unlabored respirations. Coarse breath sounds bilaterally. Objective intubated on mechanical ventilation. GASTROINTESTINAL: Abdomen obese, large, round. Bowel sounds present. GENITOURINARY: Without palpable bladder distension. Reese catheter in place. MUSCULOSKELETAL: Extremities without clubbing. Significant weeping edema to bilateral upper extremities, right more than left. NEUROLOGICAL: Awake, alert. Following some simple commands. Attempting to communicate. PSYCHIATRIC: Appears calm. . (Lisa Saha) Diagnostic Tests Laboratory Laboratory Tests Test 12/04/17 03:35 12/04/17 10:30 12/05/17 04:00 12/05/17 12:15 White Blood Count 13.7 TH/MM3 (4.0-11.0) Red Blood Count 2.90 MIL/MM3 (4.50-5.90) Hemoglobin 8.8 GM/DL (13.0-17.0) Hematocrit 27.3 % (39.0-51.0) Mean Corpuscular Volume 94.3 FL (80.0-100.0) Mean Corpuscular Hemoglobin 30.2 PG (27.0-34.0) Mean Corpuscular Hemoglobin Concent 32.0 % (32.0-36.0) Red Cell Distribution Width 16.8 % (11.6-17.2) Platelet Count 143 TH/MM3 (150-450) Mean Platelet Volume 10.3 FL (7.0-11.0) CBC Comment AUTO DIFF Differential Total Cells Counted 100 Neutrophils % (Manual) 61 % (16-70) Band Neutrophils % 23 % (0-6) Lymphocytes % 3 % (9-44) Monocytes % 11 % (0-8) Eosinophils % 1 % (0-4) Neutrophils # (Manual) 11.6 TH/MM3 (1.8-7.7) Metamyelocytes 1 % (0-1) Differential Comment FINAL DIFF MANUAL Platelet Estimate LOW (NORMAL) Platelet Morphology Comment NORMAL (NORMAL) Blood Urea Nitrogen 26 MG/DL (7-18) Creatinine 4.80 MG/DL (0.60-1.30) Random Glucose 212 MG/DL (74-106) Calcium Level 8.7 MG/DL (8.5-10.1) Sodium Level 140 MEQ/L (136-145) Potassium Level 3.5 MEQ/L (3.5-5.1) Chloride Level 99 MEQ/L (98-107) Carbon Dioxide Level 31.5 MEQ/L (21.0-32.0) Anion Gap 10 MEQ/L (5-15) Estimat Glomerular Filtration Rate 12 ML/MIN (>89) Random Vancomycin Level 26.5 COMMENT Random Cortisol 16.2 MCG/DL Test 12/06/17 11:50 Blood Gas Puncture Site RT BRACHIAL Blood Gas Patient Temperature 98.6 Blood Gas HCO3 31 mmol/L (22-26) Blood Gas Base Excess 6.0 mmol/L (-2-2) Blood Gas Oxygen Saturation 84 % (90-100) Arterial Blood pH 7.41 (7.380-7.420) Arterial Blood Partial Pressure CO2 50 mmHg (38-42) Arterial Blood Partial Pressure O2 50 mmHg (61-120) Arterial Blood Oxygen Content 8.7 Vol % (12.0-20.0) Arterial Blood Carboxyhemoglobin 1.6 % (0-4) Arterial Blood Methemoglobin 1.2 % (0-2) Blood Gas Hemoglobin 8.7 G/DL (12.0-16.0) Oxygen Delivery Device VENTILATOR Blood Gas Ventilator Setting CPAP 5/5PS Blood Gas Inspired Oxygen 40 % (Lisa Saha) Result Diagram: 12/04/17 0335 12/04/17 1030 Microbiology Microbiology Date/Time Source Procedure Growth Status 12/03/17 15:00 Blood Peripheral Aerobic Blood Culture - Preliminary NO GROWTH IN 3 DAYS Resulted 12/03/17 15:00 Blood Peripheral Anaerobic Blood Culture - Preliminary NO GROWTH IN 3 DAYS Resulted 12/03/17 14:45 Blood Peripheral Aerobic Blood Culture - Preliminary NO GROWTH IN 3 DAYS Resulted 12/03/17 14:45 Blood Peripheral Anaerobic Blood Culture - Preliminary NO GROWTH IN 3 DAYS Resulted Procedures * 11/20/17: Left brachial-brachial bypass using vein with interposition graft * 11/21/17: Permacath placement. * 11/20/17: Endotracheal intubation. * 11/22/17: Paracenteses, 6 L removed. * 11/24/17: Medical extubation * 12/03/17: Reintubation . (Lisa Saha) Assessment and Plan Disease Oriented Problem List: (1) Sepsis (2) Acute respiratory failure (3) Metabolic encephalopathy (4) ESRD (end stage renal disease) on dialysis (5) Gangrene of finger of left hand Symptom Scale: (1) Pain 0-10 Scale: Unable to quantify Pertinent Non-Medical Issues Psychosocial: Patient is originally from [place]. Moved to [place] 28 years ago. Currently for the past 34 years. Has a total of 4 children, 2 with current . 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 No service. Spiritual: Hinduism natalia. Legal: Advance directives completed. Ethical issues impacting care: No ethical issues identified. . Important Contacts Varun Meza/[facility] Patient's Jeanine Son Iván . Prognosis Mr. Hernandez is a 67-year-old male with a medical history significant for end- stage renal disease on hemodialysis, CAD status post CABG in 2004, CHF, hypertension, diabetes mellitus. Patient was transferred from [facility] to be evaluated by vascular surgery secondary to occluded left AV fistula at the proximal anastomosis as well as ischemic digits. Clinical course complicated by septic bacteremia, respiratory failure requiring intubation and mechanical ventilation, severe metabolic encephalopathy and hypotension. Patient at a very high risk for further complications, continue decline and . Overall prognosis is guarded at this time. . Code Status: No Code Plan * CODE STATUS: No code. DNR/DNI. * HEALTHCARE DECISION-MAKING: Patient unable at this time to participating in medical decision-making secondary to clinical condition, encephalopathy. However, improving. Advanced directives completed, patient has elected her son Derrick as healthcare surrogate decision maker, alternate surrogate is his Jeanine AND son Iván. * GOALS OF CARE: Met with patient's Jeanine and 2 sons Derrick and Iván. Medical update provided. Reviewed plan for medical extubation today. Goals of care reassessed. Family electing to change CODE STATUS from full code to DNR/ DNI. Family verbalized NOT wishing for patient to be reintubated or do any cardiac resuscitation. Goals of therapy remain aggressive short of no code. Family wishing to allow a few more days to reevaluate patient's clinical condition. Reviewed that patient is at a very high risk for further complications, continued decline and . Family verbalized understanding. Hospice philosophy and benefits introduced. Family receptive to hospice should patient's clinical condition worsen. * SYMPTOMS: = Pain, secondary to multiple interventions, lines, necrotic digits , prolonged hospitalization. Fentanyl drip ordered, however, limitations given patient's persistent hypotension. Oxycodone 5 mg and hydromorphone IV available as needed. Palliative care recommends discontinuation of morphine sulfate in the setting of end-stage renal disease: high risk for neurotoxicity. * Case discussed with Dr. Banks and bedside RN. * Palliative care contact information has been provided to patient's family. * Palliative care will continue to follow-up for further clarifications of goals of care as patient's clinical course continues to evolve. Family receptive to this. . (Lisa Saha) Time Spent Total Floor Time (mins): 41 (Total time to include review medical records, physical exam, goals of care conversation with patient's family, case discussion with Dr. Banks and bedside RN.) >50% Counseling/Coord of Care: Yes (Lisa Saha) Attestation To help prompt me to consider important information that might be impacting today's encounter and assessment, information from prior notes written by myself or my colleagues may have been "brought forward" into today's note. My signature on this note, however, is an attestation that I personally performed the exam, history, and/or decision-making noted today, and, unless otherwise indicated, the interactions with patient, family, and staff as well as the review of records all occurred today. I also attest that the listed assessment and stated plan reflect my best clinical judgment today based on the combination of historical information, prior notes, and today's exam/ interactions. When time spent is documented, it refers only to time spent today by the signer, or if indicated, combined time spent today by collaborating physician/nurse practitioner. (Lisa Saha) Collaborating MD Comments Chart reviewed. Case discussed with palliative care PACKAGE DELIVERY ROOM SERVICE RUNNER. Above PACKAGE DELIVERY ROOM SERVICE RUNNER note reviewed and I concur. . (Rashid Padgett MD) Lisa Saha Dec 06, 2017 13:12 Rashid Padgett MD Dec 12, 2017 17:20
--- NOTE | 2017-12-06 13:42 | HHI.CCPN ---
Subjective Remarks/Hospital Course 67-year-old male, has been at [facility] for the last 15 days, transferred to [facility] for vascular evaluation. Patient has known end-stage renal disease and gets hemodialysis every Sunday and Sunday. He had a left upper extremity AV fistula, and it had some problem, so he underwent left upper extremity access revision, left upper extremity distal revascularization and interval ligation, last August 07, 2017. He was discharged, and apparently the fistula was working okay, and during that admission also he had that left middle finger dry gangrene which was felt to be ischemic in nature due to steal syndrome. As an outpatient, his fistula apparently stopped working, so he had a permacath placed in his right IJ. Patient stated that he's had problem on and off with low blood pressure for the last 4 months. The hypotension were getting worse and he ended up getting admitted at [facility] where he stayed for at least 15 days. During that admission, he had some positive blood culture done on November 05 that grew Enterobacter cloaca. Blood culture from November 07 were negative. His permacath was removed on November 07 and the culture of that was negative. Patient underwent L UE bypass brachial-brachial and ligation of the AV fistula. Is scheduled for permacath placement tomorrow morning and remains in the ICU sedated and intubated. Subjective: 11/21: Afebrile .The patient remains intubated and sedated. Plan for permacath placement this a.m.. Will resume ventilator weaning postoperatively. 11/22: Attempted CPAP trials postoperatively yesterday, unsuccessful. Patient continues on phenylephrine currently a 60 mics/minute. Propofol discontinued Precedex infusion initiated CPAP trials are reinitiated this a.m. with plans for SBT later this morning and possible extubation. 11/23: Getting HD. Patient is awake, but very weak. On CPAP but requiring high pressure support 20. Had US guided paracentesis yesterday with 6L fluid removed- chylous. Remains on Precedex and remains on Shon-Synephrine at 60 mcg/min increased to 100 mcg/min 11/24: Remains intubated off all sedation. Requiring Shon-Synephrine at 80 mcg/ min to keep map above 65. HD with 2L removed. Left groin central line was removed and right groin hemodialysis catheter was removed yesterday 11/23/17. New right IJ central line placed yesterday 11/25: Extubated yesterday tolerating well respiratory harris. Remains on Shon- Synephrine to maintain map above 65. Cultures remain negative. Patient intermittently not cooperative with care. He is oriented 2 11/26: At around 2 AM today had episode of unresponsiveness, correlating with hypotension was hard to awake. Currently patient is awake but very lethargic voice is very soft but oriented to person and place. I will hold the Neurontin avoid all sedation currently on Shon-Synephrine at 30 mcg/min. completed hemodialysis today with 3L removed 11/27: Mentation and alertness seems to be slightly improved. TSH elevated at 8.8, increase Synthroid to 150 mcg per day. Patient is oriented to person and place. Remains very weak 11/28: Somnolent but wakes up easily, remains oriented to person. Chest x-ray unchanged. No evidence of new weakness. Discussed with Dr. Jansen 12/03 Reconsult: Patient was found unresponsive he was subsequently intubated and placed on mechanical ventilation. T:100.4 last night. 12/04: Remains encephalopathic, orally intubated on mechanical ventilation. 12/05: Remains encephalopathic, orally intubated on mechanical ventilation. On Levophed for pressor support. 12/06: Much more awake and alert. Orally intubated on mechanical ventilation. Started on Decadron yesterday and blood pressures have improved. Objective Vital Signs Date Time Temp Pulse Resp B/P (MAP) Pulse Ox O2 Delivery O2 Flow Rate FiO2 12/06/17 12:00 93 28 114/56 (75) 100 12/06/17 12:00 40 12/06/17 07:31 Ventilator 12/06/17 04:00 98.3 12/03/17 07:14 5.00 Intake and Output 12/06/17 12/06/17 12/07/17 08:00 16:00 00:00 Intake Total 600 ml Balance 600 ml Result Diagram: 12/04/17 0335 12/04/17 1030 Other Results Laboratory Tests Test 12/06/17 11:50 Blood Gas Puncture Site RT BRACHIAL Blood Gas Patient Temperature 98.6 Blood Gas HCO3 31 mmol/L (22-26) Blood Gas Base Excess 6.0 mmol/L (-2-2) Blood Gas Oxygen Saturation 84 % (90-100) Arterial Blood pH 7.41 (7.380-7.420) Arterial Blood Partial Pressure CO2 50 mmHg (38-42) Arterial Blood Partial Pressure O2 50 mmHg (61-120) Arterial Blood Oxygen Content 8.7 Vol % (12.0-20.0) Arterial Blood Carboxyhemoglobin 1.6 % (0-4) Arterial Blood Methemoglobin 1.2 % (0-2) Blood Gas Hemoglobin 8.7 G/DL (12.0-16.0) Oxygen Delivery Device VENTILATOR Blood Gas Ventilator Setting CPAP 5/5PS Blood Gas Inspired Oxygen 40 % Imaging Last Impressions Chest X-Ray 12/02/17 0000 Signed Impressions: Service Date/Time: Saturday, December 02, 2017 18:51 - CONCLUSION: Stable chest x-ray with diffuse right lung airspace consolidation and small right pleural effusion. A mild airspace opacity is present at the left lung base. Sami Deng MD Head CT 11/30/17 0000 Signed Impressions: Service Date/Time: Thursday, November 30, 2017 22:05 - CONCLUSION: 1. No acute findings. No significant change. Uzair Berrios MD Abdomen X-Ray 11/29/17 0000 Signed Impressions: Service Date/Time: November 16:03 - CONCLUSION: NG tube tip extends into the duodenum Sami Burnett MD Cyst Biopsy Asp-Paracentesis US 11/22/17 0000 Signed Impressions: Service Date/Time: November 15:20 - CONCLUSION: Uncomplicated ultrasound guided paracentesis. 6 L of chylous appearing fluid was removed. Taj Oden MD Catheter Placement X-Ray 11/21/17 1554 Signed Impressions: Service Date/Time: Tuesday, November 21, 2017 11:42 - CONCLUSION: Uncomplicated PermaCath placement as above. James Mike MD Lower Extremity Ultrasound 11/13/17 0000 Signed Impressions: Service Date/Time: Monday, November 13, 2017 07:52 - CONCLUSION: No DVT seen in either leg. Jewel Kaiser MD Hand X-Ray 11/13/17 0000 Signed Impressions: Service Date/Time: Monday, November 13, 2017 10:18 - CONCLUSION: Osteoporosis. Extensive arterial calcifications. 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 No definite evidence of bony destruction or osteomyelitis Jared Upton MD Procedures 11/20 Sp LUE angiogram. 11/21 permacath placement Objective Remarks GENERAL: Patient is 67 yo intubated SKIN: Warm and dry. HEAD: Normocephalic. EYES: No scleral icterus. No injection or drainage. NECK: Supple, trachea midline. No JVD or lymphadenopathy. CARDIOVASCULAR: Regular rate and rhythm without murmurs, gallops, or rubs. RESPIRATORY: Orally intubated on mechanical ventilation, Breath sounds equal bilaterally. No wheezing or crackles GASTROINTESTINAL: Abdomen soft, non-tender, nondistended. MUSCULOSKELETAL: No cyanosis, or edema. BACK: Nontender without obvious deformity. No CVA tenderness. Neuro: Intubated, awake and alert, moving both upper extremities. A/P Assessment and Plan N M I for 48 minutes euro: Metabolic encephalopathy -On fentanyl gtt. for sedation which will be held on 12/05. Monitor neuro status - CT head 11/26 and 11/30 negative -Check EEG, MRI brain couldn't be done as patient has pacer. -Neuro eval, Ammonia level 21 on 11/30 - Suspected metabolic encephalopathy Resp: Acute respiratory failure - Extubated 11/24/17 Reintubated 12/03 Continue with vent support keep sat >92% Bronchodilators, ICU vent bundle. Daily C Pap trials to decide extubation CVS: Hypotension Bilateral upper extremity ischemia - s/p L UE bypass Reconsult plastics/hand for necrotic digit Monitor HR and BP keep MAP>65mmHg - Midodrine 10 mg every 8 hours - Continue aspirin Plavix - NS 250 cc bolus ordered on 12/04 for hypotension. Started on Levophed for pressor support. - Check cortisol level. Started Decadron 4 mg IV daily to cover for adrenal insufficiency on 12/05 with good response in terms of blood pressure improvement cortisol level XVI done yesterday. Will need full cosyntropin stimulation testing. Probably has relative adrenal insufficiency. GI: - Large-volume ascites removed 11/22/17 - On Protonix for GI prophylaxis -Continue with tube feeds- Nepro with goal rate 55ml/hr - Added reglan 5mg IV Q8hrly for GI motility on 12/05 : End-stage renal disease - Hemodialysis per nephrology - PermCath placement 11/21 -Monitor renal function, avoid nephrotoxins Heme: Monitor CBC, on Epogen with HD Endo: Diabetes mellitus Hypothyroidism -SSI ( medium scale) for glycemic control -On Synthroid 200mcg daily, TSH 9.7 on 11/30 ID: Bacteremia Sepsis (Enterobacter bacteremia, BC 10/16) Possible left femoral line site infection - Antibiotics per ID (Rocephin switched to Zosyn, Micafungin and 1 dose Vanco given) monitor for signs of infections ( Fever, WBC) DVT GI prophylaxis - Teds SCDs - Subcutaneous heparin - Pepcid Lines: peripheral IV's Yobany Banks MD Dec 06, 2017 13:41
--- NOTE | 2017-12-06 14:12 | HHI.IDPN ---
Subjective Subjective Remarks Patient is a 67-year-old male, has been at [facility] for the last 15 days, transferred to [facility] for vascular evaluation. Patient has known end-stage renal disease and gets hemodialysis every Sunday and Sunday. He had a left upper extremity AV fistula, and it had some problem, so he underwent left upper extremity access revision, left upper extremity distal revascularization and interval ligation, last August 07, 2017. He was discharged, and apparently the fistula was working okay, and during that admission also he had that left middle finger dry gangrene which was felt to be ischemic in nature due to steal syndrome. As an outpatient, his fistula apparently stopped working, so he had a permacath placed in his right IJ. Patient stated that he's had problem on and off with low blood pressure for the last 4 months. The hypotension were getting worse and he ended up getting admitted at [facility] where he stayed for at least 15 days. During that admission, he had some positive blood culture done on November 05 that grew Enterobacter cloaca. Blood culture from November 07 were negative. His permacath was removed on November 07 and the culture of that was negative. Patient was apparently getting IV cefepime, and there was an infectious disease specialist monitoring him for his infection. Patient stated that he's had some reaction to the cefepime and he describes it as burning sensation. Patient is currently afebrile. There was evaluation of his AV fistula which shows thrombosis of his DRIL. He has now been transferred to [facility] for vascular evaluation. Infectious disease consultation has been requested to evaluate for sepsis. Notes reviewed D/W RN Temps ok Off pressors Mental status, markedly improved On CPAP Palliative medicine consult noted Had HD yesterday Nothing new on C/S Started on Decadron yesterday Last CXR 12/04 stable Antibiotics Current Medications Vanco x 1 12/04 Zosyn Micafungin Medications (Trade) Dose Ordered Sig/Renny Route Start Time Stop Time Status Last Admin (NS Flush) 2 ml BID IV FLUSH 11/12/17 21:00 12/06/17 08:56 (Tylenol) 650 mg Q4H PRN PO 11/12/17 20:00 12/04/17 08:36 (Zofran Inj) 4 mg Q6H PRN IVP 11/12/17 20:00 (Narcan Inj) 0.4 mg UNSCH PRN IV PUSH 11/12/17 20:00 (D50w (Vial) Inj) 50 ml UNSCH PRN IV PUSH 11/12/17 23:30 (Glucagon Inj) 1 mg UNSCH PRN OTHER 11/12/17 23:30 (Phoslo) 667 mg TID PO 11/13/17 09:00 12/06/17 12:49 (Ecotrin Ec) 162 mg DAILY PO 11/13/17 09:00 12/04/17 08:36 (Plavix) 75 mg DAILY PO 11/13/17 09:00 Future hold 12/06/17 08:53 (Baciguent Oint) 1 applic Q12HR TOPICAL 11/13/17 21:00 12/06/17 08:55 Sodium Chloride 1,000 ml @ 0 mls/hr Q0M PRN OTHER 11/13/17 14:09 12/03/17 18:45 (Heparin Inj) 8,000 units UNSCH PRN IV FLUSH 11/13/17 14:15 11/15/17 15:23 Sodium Chloride 1,000 ml @ 200 mls/hr Q5H PRN IV 11/13/17 14:09 11/26/17 07:15 Sodium Chloride 1,000 ml @ 0 mls/hr Q0M PRN OTHER 11/13/17 14:09 (Mannitol Inj) 12.5 gm UNSCH PRN IV 11/13/17 14:15 11/17/17 11:53 Albumin Human 100 ml @ 60 mls/hr UNSCH PRN IV 11/13/17 14:15 12/03/17 18:46 (NS Flush) 5 ml UNSCH PRN IV FLUSH 11/13/17 14:15 12/03/17 18:46 (Heparin Inj) UNSCH PRN .XX 11/13/17 14:15 12/03/17 18:48 (Gentamicin Inj) 20 mg UNSCH PRN OTHER 11/13/17 14:15 12/03/17 18:47 (Zofran Inj) 4 mg UNSCH PRN IV PUSH 11/13/17 14:15 (Tylenol) 650 mg UNSCH PRN PO 11/13/17 14:15 11/18/17 08:40 (Benadryl) 25 mg UNSCH PRN PO 11/13/17 14:15 (Nitrostat Sl) 0.4 mg UNSCH PRN SL 11/13/17 14:15 (Catapres) 0.1 mg UNSCH PRN PO 11/13/17 14:15 (Epogen Inj) 4,000 units UNSCH PRN IV PUSH 11/13/17 14:15 12/03/17 18:46 (Gelfoam 12 Mm/7 Mm Top) 1 foam UNSCH PRN TOP 11/13/17 14:15 (Coreg) 3.125 mg BID PO 11/16/17 21:00 Future Hold 11/22/17 08:37 (Neurontin) 100 mg TID PO 11/20/17 18:00 Future Hold 11/25/17 18:34 (Sims Thyroid) 60 mg BID PO 11/20/17 21:00 12/06/17 08:53 (Roxicodone) 5 mg Q4H PRN PO 11/20/17 15:15 (Dilaudid) 2 mg Q4H PRN PO 11/20/17 15:15 (Morphine Inj) 2 mg Q1H PRN IV PUSH 11/20/17 15:15 12/04/17 16:39 (Marleny-Colace) 1 tab BID PO 11/20/17 21:00 12/05/17 20:29 (Milk Of Magnesia Liq) 30 ml Q12H PRN PO 11/20/17 15:15 (Senokot) 17.2 mg Q12H PRN PO 11/20/17 15:15 12/05/17 09:54 (Dulcolax Supp) 10 mg DAILY PRN RECTAL 11/20/17 15:15 (Lactulose Liq) 30 ml DAILY PRN PO 11/20/17 15:15 Propofol 100 ml @ 2.841 mls/ hr TITRATE PRN IV 11/20/17 16:00 Future Hold 11/22/17 03:36 (NS Flush) 5 ml UNSCH PRN IV FLUSH 11/20/17 17:45 (Heparin Inj) 2,000 units UNSCH PRN IV FLUSH 11/20/17 17:45 (Duoneb Neb) 1 ampule Q4HR NEB PRN NEB 11/21/17 08:45 12/03/17 07:13 (Mycostatin Cream) 1 applic Q12HR TOPICAL 11/24/17 14:00 12/06/17 08:55 (Heparin Inj) 5,000 units Q12HR SQ 11/26/17 21:00 12/06/17 08:53 (Tylenol) 500 mg Q6H PRN PO 11/27/17 16:30 (Gentamicin Opht 0.3% Soln) 1 drop Q4HR EACH EYE 11/29/17 16:00 12/06/17 12:52 (Proamatine) 10 mg Q8HR PO 11/30/17 00:00 12/06/17 12:49 (Brethine Inj) 1 mg UNSCH PRN SQ 11/29/17 22:30 (Synthroid) 200 mcg DAILY@0600 PO 12/01/17 06:00 12/06/17 04:57 (NovoLOG SUPPLEMENTAL SCALE) 1 Q4H SQ 12/03/17 13:00 12/06/17 12:58 (Duoneb Neb) 1 ampule Q6HR NEB NEB 12/03/17 11:15 12/06/17 07:57 Fentanyl Citrate 250 ml @ 5 mls/hr TITRATE PRN IV 12/03/17 11:15 (Protonix Inj) 40 mg Q24H IV PUSH 12/03/17 12:00 12/06/17 12:49 Piperacillin Sod/ Tazobactam Sod 50 ml @ 100 mls/hr Q8H IV 12/03/17 14:00 12/06/17 12:51 Norepinephrine Bitartrate 250 ml @ 7.5 mls/hr TITRATE PRN IV 12/04/17 09:15 12/04/17 20:58 (Brethine Inj) 1 mg UNSCH PRN SQ 12/04/17 09:15 (Decadron Inj) 4 mg DAILY IV PUSH 12/05/17 09:00 12/06/17 08:53 (Reglan Inj) 5 mg Q8HR IV PUSH 12/05/17 14:00 12/06/17 12:50 Lines Permacath site ok. Past Medical History ESRD DM CAD HF. HTN Enlarged liver, and ascites Past Surgical History Pacemaker CABGx4 with mitral valvuloplasty in february 2005 Right fifth toe amputation Right shoulder rotator cuff repair Has had repeated paracentesis to drain his ascites Allergies: Coded Allergies: adhesive (Unverified Adverse Reaction, Severe, SKIN BREAKDOWN/ULCERS, ) Uncoded Allergies: MSG (Allergy, Intermediate, bowel problems, 08/02/17) Objective . Vital Signs Date Time Temp Pulse Resp B/P (MAP) Pulse Ox O2 Delivery O2 Flow Rate FiO2 12/06/17 12:00 93 28 114/56 (75) 100 12/06/17 12:00 40 12/06/17 12:00 93 12/06/17 11:30 90 25 107/53 (71) 100 12/06/17 11:30 90 12/06/17 11:06 90 21 119/57 (77) 99 12/06/17 11:06 90 12/06/17 10:30 86 28 106/51 (69) 100 12/06/17 10:30 86 12/06/17 10:20 100 40 12/06/17 10:00 91 12/06/17 10:00 91 29 115/58 (77) 100 12/06/17 10:00 40 12/06/17 09:30 93 26 103/53 (70) 100 12/06/17 09:30 93 12/06/17 09:30 93 26 103/53 (70) 100 12/06/17 09:01 96 24 113/56 (75) 100 12/06/17 09:01 96 24 113/56 (75) 100 12/06/17 09:01 96 12/06/17 08:30 83 12/06/17 08:30 83 23 106/53 (70) 100 12/06/17 08:30 83 23 106/53 (70) 100 12/06/17 08:00 75 12/06/17 08:00 75 26 119/54 (75) 100 12/06/17 08:00 40 12/06/17 08:00 75 26 119/54 (75) 100 12/06/17 07:31 99 Ventilator 40 12/06/17 07:31 40 12/06/17 07:31 99 40 12/06/17 06:00 40 12/06/17 06:00 69 12/06/17 04:00 98.3 70 20 110/55 (73) 100 12/06/17 04:00 70 12/06/17 04:00 40 12/06/17 03:07 100 40 12/06/17 02:00 40 12/06/17 00:00 72 12/06/17 00:00 98.8 72 19 88/50 (63) 100 12/06/17 00:00 40 12/05/17 22:20 98 40 12/05/17 22:00 40 12/05/17 20:00 99.0 81 18 93/52 (66) 100 12/05/17 20:00 81 12/05/17 20:00 40 12/05/17 19:11 99 40 12/05/17 18:00 40 12/05/17 17:00 76 26 92/54 (67) 100 12/05/17 16:45 74 12/05/17 16:45 74 28 91/52 (65) 100 12/05/17 16:30 75 12/05/17 16:30 75 26 93/52 (66) 100 12/05/17 16:15 74 12/05/17 16:15 74 23 94/52 (66) 100 12/05/17 16:00 40 12/05/17 16:00 75 25 97/54 (68) 100 12/05/17 16:00 75 12/05/17 15:45 80 12/05/17 15:30 73 12/05/17 15:23 73 12/05/17 15:15 72 12/05/17 15:00 71 12/05/17 14:56 100 40 12/05/17 14:45 72 12/05/17 14:30 73 12/05/17 14:15 72 . Laboratory Tests Test 12/05/17 12:15 Random Cortisol 16.2 MCG/DL Microbiology Date/Time Source Procedure Growth Status 12/03/17 15:00 Blood Peripheral Aerobic Blood Culture - Preliminary NO GROWTH IN 3 DAYS Resulted 12/03/17 15:00 Blood Peripheral Anaerobic Blood Culture - Preliminary NO GROWTH IN 3 DAYS Resulted 12/03/17 14:45 Blood Peripheral Aerobic Blood Culture - Preliminary NO GROWTH IN 3 DAYS Resulted 12/03/17 14:45 Blood Peripheral Anaerobic Blood Culture - Preliminary NO GROWTH IN 3 DAYS Resulted Imaging Last Impressions Chest X-Ray 12/03/17 0000 Signed Impressions: Service Date/Time: Sunday, December 03, 2017 11:33 - CONCLUSION: 1. ET tube tip in good position. 2. Stable configuration of the right lower lung consolidative and right upper and left lower lung mixed infiltrates. Iván Goodman MD Head CT 11/30/17 0000 Signed Impressions: Service Date/Time: Thursday, November 30, 2017 22:05 - CONCLUSION: 1. No acute findings. No significant change. Uzair Berrios MD Abdomen X-Ray 11/29/17 0000 Signed Impressions: Service Date/Time: November 16:03 - CONCLUSION: NG tube tip extends into the duodenum Sami Burnett MD Cyst Biopsy Asp-Paracentesis US 11/22/17 0000 Signed Impressions: Service Date/Time: November 15:20 - CONCLUSION: Uncomplicated ultrasound guided paracentesis. 6 L of chylous appearing fluid was removed. Taj Oden MD Catheter Placement X-Ray 11/21/17 1554 Signed Impressions: Service Date/Time: Tuesday, November 21, 2017 11:42 - CONCLUSION: Uncomplicated PermaCath placement as above. James Mike MD Lower Extremity Ultrasound 11/13/17 0000 Signed Impressions: Service Date/Time: Monday, November 13, 2017 07:52 - CONCLUSION: No DVT seen in either leg. Jewel Kaiser MD Hand X-Ray 11/13/17 0000 Signed Impressions: Service Date/Time: Monday, November 13, 2017 10:18 - CONCLUSION: Osteoporosis. Extensive arterial calcifications. 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 No definite evidence of bony destruction or osteomyelitis Jared Upton MD Physical Exam GENERAL: Awake and alert, following commands, NAD SKIN: Cool and dry. No rash. Edematous EYES: [place] conjunctiva. No petechia or hemorrhage. No scleral icterus. EARS, NOSE AND THROAT: Orally intubated NECK: Trachea midline, supple and not tender CARDIOVASCULAR: Regular rate and rhythm. Has systolic murmur over L precordium and base of the heart RESPIRATORY: Decreased at both bases, coarse BS ABDOMEN: Soft, and bowel sounds present and hypoactive. No reaction to palpation. EXTREMITIES: No clubbing, cyanosis. Has edema of both feet and UE. Dry gangrene noted. Incision LUE dry, no redness NEUROLOGICAL: awake and following commands LINES: No evidence of infection Assessment & Plan Remarks IMPRESSION Progressive decline in mental status, better today Klebsiella MDR PNA Respiratory failure Possible new sepsis, had fevers last 24 hours, due to PNA Septic Thrombophlebitis: Enterobacter, completing Rx Enterobacter bacteremia, BC 11/05 (+), ?source - permacath C/S negative (?due to previous Abx) - concern with infected thrombus LUE AVF - completing Rx Thrombosis DRIL LUE AVF S/P Bypass LUE and ligation of AVF and DRIL ESRD on HD MWF Ascites, ?primary liver problem or other etiology LMF dry gangrene Encephalopathy, ?metabolic RECOMMENDATION Continue Zosyn Stop Micafungin Follow temps Monitor progress Weaning per CCM Palliative discussing with family re: goals of care D/W Loraine Harris MD Dec 06, 2017 14:12
--- NOTE | 2017-12-06 16:33 | HHI.NPPN ---
Subjective History of Present Illness Patient is a 67-year-old male with a history of end-stage renal disease on hemodialysis Sunday/Sunday/ Sunday, diabetes, CAD, CHF, hypertension was transferred from [facility] to be evaluated by vascular surgery. Patient states he was admitted to [facility] because he had low blood pressure readings at home. AV fistula has not been functioning or used for 6- 8 weeks and they have been using a permacath for dialysis. Permacath has been removed secondary to possible infection and vas cath has been placed. He has been treated with cefepime IV. Last dialysis was Sunday and 1.5 L removed. Patient has a necrotic left middle finger that patient states has been going on for the last 12 weeks. Additional Remarks Patient extubated breathing easily. No SOB (Kathleen Olguin) Review of Systems Genitourinary Remarks (Kathleen Olguin) Objective Data Data Vital Signs Date Time Temp Pulse Resp B/P (MAP) Pulse Ox O2 Delivery O2 Flow Rate FiO2 12/06/17 16:00 68 12/06/17 14:55 96 Nasal Cannula 3 12/06/17 14:00 40 12/06/17 14:00 68 12/06/17 12:00 93 28 114/56 (75) 100 12/06/17 12:00 40 12/06/17 12:00 93 12/06/17 11:30 90 25 107/53 (71) 100 12/06/17 11:30 90 12/06/17 11:06 90 21 119/57 (77) 99 12/06/17 11:06 90 12/06/17 10:30 86 28 106/51 (69) 100 12/06/17 10:30 86 12/06/17 10:20 100 40 12/06/17 10:00 91 12/06/17 10:00 91 29 115/58 (77) 100 12/06/17 10:00 40 12/06/17 09:30 93 26 103/53 (70) 100 12/06/17 09:30 93 12/06/17 09:30 93 26 103/53 (70) 100 12/06/17 09:01 96 24 113/56 (75) 100 12/06/17 09:01 96 24 113/56 (75) 100 12/06/17 09:01 96 12/06/17 08:30 83 12/06/17 08:30 83 23 106/53 (70) 100 12/06/17 08:30 83 23 106/53 (70) 100 12/06/17 08:00 75 12/06/17 08:00 75 26 119/54 (75) 100 12/06/17 08:00 40 12/06/17 08:00 75 26 119/54 (75) 100 12/06/17 07:31 99 Ventilator 40 12/06/17 07:31 40 12/06/17 07:31 99 40 12/06/17 06:00 40 12/06/17 06:00 69 12/06/17 04:00 98.3 70 20 110/55 (73) 100 12/06/17 04:00 70 12/06/17 04:00 40 12/06/17 03:07 100 40 12/06/17 02:00 40 12/06/17 00:00 72 12/06/17 00:00 98.8 72 19 88/50 (63) 100 12/06/17 00:00 40 12/05/17 22:20 98 40 12/05/17 22:00 40 12/05/17 20:00 99.0 81 18 93/52 (66) 100 12/05/17 20:00 81 12/05/17 20:00 40 12/05/17 19:11 99 40 12/05/17 18:00 40 12/05/17 17:00 76 26 92/54 (67) 100 12/05/17 16:45 74 12/05/17 16:45 74 28 91/52 (65) 100 (Kathleen OlguinP) -: 12/04/17 0335 12/04/17 1030 Imaging Last Impressions Chest X-Ray 12/04/17 0000 Signed Impressions: Service Date/Time: Monday, December 04, 2017 11:09 - CONCLUSION: 1. Uncomplicated line placement. No evidence of pneumothorax. James Mike MD Head CT 11/30/17 0000 Signed Impressions: Service Date/Time: Thursday, November 30, 2017 22:05 - CONCLUSION: 1. No acute findings. No significant change. Uzair Berrios MD Abdomen X-Ray 11/29/17 0000 Signed Impressions: Service Date/Time: November 16:03 - CONCLUSION: NG tube tip extends into the duodenum Sami Burnett MD Cyst Biopsy Asp-Paracentesis US 11/22/17 0000 Signed Impressions: Service Date/Time: November 15:20 - CONCLUSION: Uncomplicated ultrasound guided paracentesis. 6 L of chylous appearing fluid was removed. Taj Oden MD Catheter Placement X-Ray 11/21/17 1554 Signed Impressions: Service Date/Time: Tuesday, November 21, 2017 11:42 - CONCLUSION: Uncomplicated PermaCath placement as above. James Mike MD Lower Extremity Ultrasound 11/13/17 0000 Signed Impressions: Service Date/Time: Monday, November 13, 2017 07:52 - CONCLUSION: No DVT seen in either leg. Jewel Kaiser MD Hand X-Ray 11/13/17 0000 Signed Impressions: Service Date/Time: Monday, November 13, 2017 10:18 - CONCLUSION: Osteoporosis. Extensive arterial calcifications. 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 No definite evidence of bony destruction or osteomyelitis Jared Upton MD Tubes & Lines: Perma-Cath (Kathleen Olguin) Physical Exam General Appearance: No Acute Distress (Kathleen OlguinP) Eyes Eye Exam: Pupils Equal (Kathleen Olguin WATCH ENGINEER) Throat Throat Exam: Oral Mucosa [place] & Moist Throat Remarks NG tube (Kathleen OlguinP) Pulmonary Resp Exam: Breath Sounds Equal, No Distress, Rhonchi, Decreased Bases (Kathleen Olguin WATCH ENGINEER) Cardiology CV Exam: Regular (Kathleen Olguin. WATCH ENGINEER) Gastrointestinal/Abdomen GI Exam: Soft, Non-Tender, Bowel Sounds Present (Kathleen OlguinP) Integumentary Skin Remarks necrotic area on tip on left hand middle finger (Kathleen OlguinP) Extremeties Extremities Exam: Moderate Edema (Left arm and hand swelling.) (Kathleen OlguinP) Neurologic Neuro Exam: Sedated (Kathleen OlguinP) Assessment/Plan Discussed Condition With: Spouse Assessment Summary: End Stage Renal Disease Problem List: (1) ESRD (end stage renal disease) on dialysis ICD Codes: N18.6 - End stage renal disease; Z99.2 - Dependence on renal dialysis Plan: Dialysis MWF s/p L UE bypass 2/6 ligation of AVF and DRIL Antibiotics per ID ESBL noted in urine on isolation Epogen with dialysis Extubated to 3 liters NC Dialysis as scheduled tomorrow (2) Gangrene of finger of left hand ICD Codes: I96 - Gangrene, not elsewhere classified Plan: necrotic area on left hand middle finger (3) AV fistula occlusion ICD Codes: T82.898A - Other specified complication of vascular prosthetic devices, implants and grafts, initial encounter Plan: s/p L UE bypass 2/6 ligation of AVF and DRIL (4) Diabetes mellitus ICD Codes: E11.9 - Type 2 diabetes mellitus without complications Plan: Maintain BS between 140mg/dl to 180 mg/dl (Kathleen Olguin) Problem List: (1) ESRD (end stage renal disease) on dialysis ICD Codes: N18.6 - End stage renal disease; Z99.2 - Dependence on renal dialysis Plan: Dialysis MWF s/p L UE bypass 2/6 ligation of AVF and DRIL Antibiotics per ID ESBL noted in urine on isolation Epogen with dialysis Extubated to 3 liters NC Dialysis as scheduled tomorrow. Patient seen and examined, agree with above. More alert today, some improvement in Encephalopathy. (2) Gangrene of finger of left hand ICD Codes: I96 - Gangrene, not elsewhere classified Plan: necrotic area on left hand middle finger (3) AV fistula occlusion ICD Codes: T82.898A - Other specified complication of vascular prosthetic devices, implants and grafts, initial encounter Plan: s/p L UE bypass 2/6 ligation of AVF and DRIL (4) Diabetes mellitus ICD Codes: E11.9 - Type 2 diabetes mellitus without complications Plan: Maintain BS between 140mg/dl to 180 mg/dl (Kim Santos MD) Kathleen Olguin Dec 06, 2017 16:33 Kim Santos MD Dec 06, 2017 21:04
[2017-12-07] VITALS (36 sets, daily range): BP systolic 82–141; BP diastolic 28–65; PULSE 67–89; RESP 14–29; TEMP 98.1; O2SAT 86–100
[2017-12-07] MEDS: INSULIN ASPART SUPPLEMENTAL SCALE SQ SCH ×6 (00:58→19:34)
[2017-12-07] MEDS: GENTAMICIN SULFATE 0.3% OPHT SOLN 5 ML BTL EACH EYE SCH ×6 (03:47→22:17)
[2017-12-07] MEDS: RESP: ALBUTEROL 2.5 MG/IPRATROPIUM 0.5 MG NEB (SCH) NEB ×2 (03:54→09:39)
[2017-12-07] MEDS: PIPERACIL-TAZO 2.25 GM PREMIX 50 ML IV SCH ×3 (05:01→22:17)
[2017-12-07] MEDS: MIDODRINE 5 MG TAB PO SCH ×3 (05:01→22:17)
[2017-12-07] MEDS: LEVOTHYROXINE SODIUM 200 MCG TAB PO SCH (05:01)
[2017-12-07] MEDS: METOCLOPRAMIDE HCL 10 MG/2 ML VIAL IV PUSH SCH (05:06)
[2017-12-07 07:21] LABS: ALBUMIN 2.4 GM/DL (3.4-5.0); ALKALINE PHOSPHATASE 171 U/L (45-117); ALT (GPT) 11 U/L (12-78); AST (GOT) 32 U/L (15-37); BLOOD UREA NITROGEN 45 MG/DL (7-18); CALCIUM 9.1 MG/DL (8.5-10.1); CHLORIDE 99 MEQ/L (98-107); CREATININE 4.96 MG/DL (0.60-1.30); GLOMERULAR FILTRATION RATE 12 ML/MIN (>89); GLUCOSE,RANDOM 65 MG/DL (74-106); SODIUM (NA) 137 MEQ/L (136-145); TOTAL BILIRUBIN ADULT 0.7 MG/DL (0.2-1.0); TOTAL PROTEIN 5.7 GM/DL (6.4-8.2)
--- NOTE | 2017-12-07 07:29 | HHI.CCPN ---
Subjective Remarks/Hospital Course 67-year-old male, has been at [facility] for the last 15 days, transferred to [facility] for vascular evaluation. Patient has known end-stage renal disease and gets hemodialysis every Sunday and Sunday. He had a left upper extremity AV fistula, and it had some problem, so he underwent left upper extremity access revision, left upper extremity distal revascularization and interval ligation, last August 07, 2017. He was discharged, and apparently the fistula was working okay, and during that admission also he had that left middle finger dry gangrene which was felt to be ischemic in nature due to steal syndrome. As an outpatient, his fistula apparently stopped working, so he had a permacath placed in his right IJ. Patient stated that he's had problem on and off with low blood pressure for the last 4 months. The hypotension were getting worse and he ended up getting admitted at [facility] where he stayed for at least 15 days. During that admission, he had some positive blood culture done on November 05 that grew Enterobacter cloaca. Blood culture from November 07 were negative. His permacath was removed on November 07 and the culture of that was negative. Patient underwent L UE bypass brachial-brachial and ligation of the AV fistula. Is scheduled for permacath placement tomorrow morning and remains in the ICU sedated and intubated. Subjective: 11/21: Afebrile .The patient remains intubated and sedated. Plan for permacath placement this a.m.. Will resume ventilator weaning postoperatively. 11/22: Attempted CPAP trials postoperatively yesterday, unsuccessful. Patient continues on phenylephrine currently a 60 mics/minute. Propofol discontinued Precedex infusion initiated CPAP trials are reinitiated this a.m. with plans for SBT later this morning and possible extubation. 11/23: Getting HD. Patient is awake, but very weak. On CPAP but requiring high pressure support 20. Had US guided paracentesis yesterday with 6L fluid removed- chylous. Remains on Precedex and remains on Shon-Synephrine at 60 mcg/min increased to 100 mcg/min 11/24: Remains intubated off all sedation. Requiring Shon-Synephrine at 80 mcg/ min to keep map above 65. HD with 2L removed. Left groin central line was removed and right groin hemodialysis catheter was removed yesterday 11/23/17. New right IJ central line placed yesterday 11/25: Extubated yesterday tolerating well respiratory harris. Remains on Shon- Synephrine to maintain map above 65. Cultures remain negative. Patient intermittently not cooperative with care. He is oriented 2 11/26: At around 2 AM today had episode of unresponsiveness, correlating with hypotension was hard to awake. Currently patient is awake but very lethargic voice is very soft but oriented to person and place. I will hold the Neurontin avoid all sedation currently on Shon-Synephrine at 30 mcg/min. completed hemodialysis today with 3L removed 11/27: Mentation and alertness seems to be slightly improved. TSH elevated at 8.8, increase Synthroid to 150 mcg per day. Patient is oriented to person and place. Remains very weak 11/28: Somnolent but wakes up easily, remains oriented to person. Chest x-ray unchanged. No evidence of new weakness. Discussed with Dr. Jansen 12/03 Reconsult: Patient was found unresponsive he was subsequently intubated and placed on mechanical ventilation. T:100.4 last night. 12/04: Remains encephalopathic, orally intubated on mechanical ventilation. 12/05: Remains encephalopathic, orally intubated on mechanical ventilation. On Levophed for pressor support. 12/06: Much more awake and alert. Orally intubated on mechanical ventilation. Started on Decadron yesterday and blood pressures have improved. 12/07 Patient s/p extubation yesterday. On 3L oxygen. Afebrile. For HD today. Objective Vital Signs Date Time Temp Pulse Resp B/P (MAP) Pulse Ox O2 Delivery O2 Flow Rate FiO2 12/07/17 06:00 68 12/07/17 04:00 98.1 20 123/57 (79) 100 12/06/17 19:27 Nasal Cannula 3.00 12/06/17 14:00 40 Intake and Output 12/07/17 12/07/17 12/08/17 08:00 16:00 00:00 Intake Total 100 ml Output Total 0 ml Balance 100 ml Result Diagram: 12/04/17 0335 12/04/17 1030 Other Results Laboratory Tests Test 12/06/17 11:50 12/07/17 05:35 Blood Gas Puncture Site RT BRACHIAL Blood Gas Patient Temperature 98.6 Blood Gas HCO3 31 mmol/L Blood Gas Base Excess 6.0 mmol/L Blood Gas Oxygen Saturation 84 % Arterial Blood pH 7.41 Arterial Blood Partial Pressure CO2 50 mmHg Arterial Blood Partial Pressure O2 50 mmHg Arterial Blood Oxygen Content 8.7 Vol % Arterial Blood Carboxyhemoglobin 1.6 % Arterial Blood Methemoglobin 1.2 % Blood Gas Hemoglobin 8.7 G/DL Oxygen Delivery Device VENTILATOR Blood Gas Ventilator Setting CPAP 5/5PS Blood Gas Inspired Oxygen 40 % Blood Urea Nitrogen 45 MG/DL Creatinine 4.96 MG/DL Random Glucose 65 MG/DL Total Protein 5.7 GM/DL Albumin 2.4 GM/DL Calcium Level 9.1 MG/DL Alkaline Phosphatase 171 U/L Aspartate Amino Transf (AST/SGOT) 32 U/L Alanine Aminotransferase (ALT/SGPT) 11 U/L Total Bilirubin 0.7 MG/DL Sodium Level 137 MEQ/L Potassium Level 4.5 MEQ/L Chloride Level 99 MEQ/L Carbon Dioxide Level 30.0 MEQ/L Anion Gap 8 MEQ/L Estimat Glomerular Filtration Rate 12 ML/MIN Imaging Last Impressions Chest X-Ray 12/04/17 0000 Signed Impressions: Service Date/Time: Monday, December 04, 2017 11:09 - CONCLUSION: 1. Uncomplicated line placement. No evidence of pneumothorax. James Mike MD Head CT 11/30/17 0000 Signed Impressions: Service Date/Time: Thursday, November 30, 2017 22:05 - CONCLUSION: 1. No acute findings. No significant change. Uzair Berrios MD Abdomen X-Ray 11/29/17 0000 Signed Impressions: Service Date/Time: November 16:03 - CONCLUSION: NG tube tip extends into the duodenum Sami Burnett MD Cyst Biopsy Asp-Paracentesis US 11/22/17 0000 Signed Impressions: Service Date/Time: November 15:20 - CONCLUSION: Uncomplicated ultrasound guided paracentesis. 6 L of chylous appearing fluid was removed. Taj Oden MD Catheter Placement X-Ray 11/21/17 [id number] Signed Impressions: Service Date/Time: Tuesday, November 21, 2017 11:42 - CONCLUSION: Uncomplicated PermaCath placement as above. James Mike MD Lower Extremity Ultrasound 11/13/17 0000 Signed Impressions: Service Date/Time: Monday, November 13, 2017 07:52 - CONCLUSION: No DVT seen in either leg. Jewel Kaiser MD Hand X-Ray 11/13/17 0000 Signed Impressions: Service Date/Time: Monday, November 13, 2017 10:18 - CONCLUSION: Osteoporosis. Extensive arterial calcifications. 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 No definite evidence of bony destruction or osteomyelitis Jared Upton MD Procedures 11/20 Sp LUE angiogram. 11/21 permacath placement Objective Remarks GENERAL: Patient is 67 yo lyine in bed in NAD SKIN: Warm and dry. HEAD: Normocephalic. EYES: No scleral icterus. No injection or drainage. NECK: Supple, trachea midline. No JVD or lymphadenopathy. CARDIOVASCULAR: Regular rate and rhythm without murmurs, gallops, or rubs. RESPIRATORY: Breath sounds equal bilaterally. No wheezing or crackles GASTROINTESTINAL: Abdomen soft, non-tender, nondistended. MUSCULOSKELETAL: No cyanosis, or edema. BACK: Nontender without obvious deformity. No CVA tenderness. Neuro: Awake. A/P Assessment and Plan Metabolic encephalopathy - Monitor neuro status, avoid sedatives - CT head 11/26 and 11/30 negative -MRI brain couldn't be done as patient has pacer. - Ammonia level 21 on 11/30 - EEG 12/03: miod encephalopathy, no ictal activity. Neuro is following- Dr. Hayden -Suspected metabolic encephalopathy Resp: Acute respiratory failure - Extubated 11/24/17 Reintubated 12/03, extubated 12/06 Continue with oxygen keep sat >92% Bronchodilators, CVS: Hypotension Bilateral upper extremity ischemia - s/p L UE bypass Monitor HR and BP keep MAP>65mmHg - Midodrine 10 mg every 8 hours - Continue aspirin Plavix - cortisol level 16.2 . On Decadron 4 mg IV daily to cover for adrenal insufficiency on 12/05. Probably has relative adrenal insufficiency. GI: - Large-volume ascites removed 11/22/17 - On Protonix for GI prophylaxis -Speech eval, diet per speech - Reglan 5mg IV Q8hrly for GI motility on 12/05 : End-stage renal disease - Hemodialysis per nephrology - PermCath placement 11/21 -Monitor renal function, avoid nephrotoxins, on HD M,W,F Heme: Monitor CBC, on Epogen with HD Endo: Diabetes mellitus Hypothyroidism -SSI ( medium scale) for glycemic control -On Synthroid 200mcg daily, [place] Synthroid 60mg BID, TSH 9.7 on 11/30 ID: Bacteremia Sepsis (Enterobacter bacteremia, BC 10/16) 12/03 Sputum cx: Kleb pneumonia ESBL - Antibiotics per ID ( Zosyn)) monitor for signs of infections ( Fever, WBC) DVT GI prophylaxis - Teds SCDs - Subcutaneous heparin - Pepcid Lines: peripheral IV's Level 2 Fabiola Taylor MD Dec 07, 2017 07:29
[2017-12-07 07:32] LABS: AUTOMATED NEUTROPHIL # 9.8 TH/MM3 (1.8-7.7); BASOPHIL % 0.1 % (0.0-2.0); EOSINOPHIL % 0.1 % (0.0-4.0); HEMATOCRIT 25.2 % (39.0-51.0); HEMOGLOBIN 8.1 GM/DL (13.0-17.0); LYMPH % 4.7 % (9.0-44.0); LYMPHOCYTE # 0.6 TH/MM3 (1.0-4.8); MEAN CELL VOLUME 94.4 FL (80.0-100.0); MEAN CORPUSCULAR HEMOGLOBIN 30.2 PG (27.0-34.0); MEAN PLATELET VOLUME 10.4 FL (7.0-11.0); MONO % 16.3 % (0.0-8.0); NEUT % 78.8 % (16.0-70.0); PLATELET COUNT 135 TH/MM3 (150-450); RED BLOOD COUNT 2.67 MIL/MM3 (4.50-5.90); RED CELL DISTRIBUTION WIDTH 17.1 % (11.6-17.2); WHITE BLOOD COUNT 12.4 TH/MM3 (4.0-11.0)
[2017-12-07] MEDS: ASPIRIN EC 81 MG TABEC PO SCH (07:53)
[2017-12-07] MEDS: HEPARIN SODIUM - SQ 10,000 UNITS/ML VIAL SQ SCH ×2 (07:53→19:34)
[2017-12-07] MEDS: DEXAMETHASONE SOD PHOS 4 MG/ML VIAL IV PUSH SCH (07:54)
[2017-12-07] MEDS: THYROID 60 MG TAB PO SCH ×2 (07:54→19:33)
[2017-12-07] MEDS: SODIUM CHLORIDE 0.9% FLUSH 10 ML FLUSH IV FLUSH SCH ×2 (07:54→19:33)
[2017-12-07] MEDS: CLOPIDOGREL 75 MG TAB PO SCH (07:54)
[2017-12-07] MEDS: NYSTATIN 100,000 UNIT/GM CREAM 15 GM TOPICAL SCH ×2 (08:02→19:35)
[2017-12-07] MEDS: BACITRACIN TOP OINT 15 GM TUBE TOPICAL SCH ×2 (08:02→19:35)
[2017-12-07] MEDS: DOCUSATE SODIUM 50 MG/SENNA 8.6 MG TAB PO SCH ×2 (08:20→19:33)
[2017-12-07] MEDS: CALCIUM ACETATE 667 MG CAP PO SCH ×3 (08:20→18:00)
--- NOTE | 2017-12-07 10:44 | HHI.IDPN ---
Subjective Subjective Remarks Patient is a 67-year-old male, has been at [facility] for the last 15 days, transferred to [facility] for vascular evaluation. Patient has known end-stage renal disease and gets hemodialysis every Sunday and Sunday. He had a left upper extremity AV fistula, and it had some problem, so he underwent left upper extremity access revision, left upper extremity distal revascularization and interval ligation, last August 07, 2017. He was discharged, and apparently the fistula was working okay, and during that admission also he had that left middle finger dry gangrene which was felt to be ischemic in nature due to steal syndrome. As an outpatient, his fistula apparently stopped working, so he had a permacath placed in his right IJ. Patient stated that he's had problem on and off with low blood pressure for the last 4 months. The hypotension were getting worse and he ended up getting admitted at [facility] where he stayed for at least 15 days. During that admission, he had some positive blood culture done on November 05 that grew Enterobacter cloaca. Blood culture from November 07 were negative. His permacath was removed on November 07 and the culture of that was negative. Patient was apparently getting IV cefepime, and there was an infectious disease specialist monitoring him for his infection. Patient stated that he's had some reaction to the cefepime and he describes it as burning sensation. Patient is currently afebrile. There was evaluation of his AV fistula which shows thrombosis of his DRIL. He has now been transferred to [facility] for vascular evaluation. Infectious disease consultation has been requested to evaluate for sepsis. Notes reviewed D/W RN Extubated yesterday On nasal O2 Temps ok BP ok Awake, slow to respond For HD today Nothing new on C/S Last CXR 12/04 stable Antibiotics Current Medications Vanco x 1 12/04 Zosyn Medications (Trade) Dose Ordered Sig/Renny Route Start Time Stop Time Status Last Admin (NS Flush) 2 ml BID IV FLUSH 11/12/17 21:00 12/07/17 07:54 (Tylenol) 650 mg Q4H PRN PO 11/12/17 20:00 12/04/17 08:36 (Zofran Inj) 4 mg Q6H PRN IVP 11/12/17 20:00 (Narcan Inj) 0.4 mg UNSCH PRN IV PUSH 11/12/17 20:00 (D50w (Vial) Inj) 50 ml UNSCH PRN IV PUSH 11/12/17 23:30 (Glucagon Inj) 1 mg UNSCH PRN OTHER 11/12/17 23:30 (Phoslo) 667 mg TID PO 11/13/17 09:00 12/06/17 12:49 (Ecotrin Ec) 162 mg DAILY PO 11/13/17 09:00 12/07/17 07:53 (Plavix) 75 mg DAILY PO 11/13/17 09:00 Future hold 12/07/17 07:54 (Baciguent Oint) 1 applic Q12HR TOPICAL 11/13/17 21:00 12/07/17 08:02 Sodium Chloride 1,000 ml @ 0 mls/hr Q0M PRN OTHER 11/13/17 14:09 12/03/17 18:45 (Heparin Inj) 8,000 units UNSCH PRN IV FLUSH 11/13/17 14:15 11/15/17 15:23 Sodium Chloride 1,000 ml @ 200 mls/hr Q5H PRN IV 11/13/17 14:09 11/26/17 07:15 Sodium Chloride 1,000 ml @ 0 mls/hr Q0M PRN OTHER 11/13/17 14:09 (Mannitol Inj) 12.5 gm UNSCH PRN IV 11/13/17 14:15 11/17/17 11:53 Albumin Human 100 ml @ 60 mls/hr UNSCH PRN IV 11/13/17 14:15 12/03/17 18:46 (NS Flush) 5 ml UNSCH PRN IV FLUSH 11/13/17 14:15 12/03/17 18:46 (Heparin Inj) UNSCH PRN .XX 11/13/17 14:15 12/03/17 18:48 (Gentamicin Inj) 20 mg UNSCH PRN OTHER 11/13/17 14:15 12/03/17 18:47 (Zofran Inj) 4 mg UNSCH PRN IV PUSH 11/13/17 14:15 (Tylenol) 650 mg UNSCH PRN PO 11/13/17 14:15 11/18/17 08:40 (Benadryl) 25 mg UNSCH PRN PO 11/13/17 14:15 (Nitrostat Sl) 0.4 mg UNSCH PRN SL 11/13/17 14:15 (Catapres) 0.1 mg UNSCH PRN PO 11/13/17 14:15 (Epogen Inj) 4,000 units UNSCH PRN IV PUSH 11/13/17 14:15 12/03/17 18:46 (Gelfoam 12 Mm/7 Mm Top) 1 foam UNSCH PRN TOP 11/13/17 14:15 (Coreg) 3.125 mg BID PO 11/16/17 21:00 Future Hold 11/22/17 08:37 (Neurontin) 100 mg TID PO 11/20/17 18:00 Future Hold 11/25/17 18:34 ([place] Thyroid) 60 mg BID PO 11/20/17 21:00 12/07/17 07:54 (Roxicodone) 5 mg Q4H PRN PO 11/20/17 15:15 (Dilaudid) 2 mg Q4H PRN PO 11/20/17 15:15 (Morphine Inj) 2 mg Q1H PRN IV PUSH 11/20/17 15:15 12/04/17 16:39 (Marleny-Colace) 1 tab BID PO 11/20/17 21:00 12/05/17 20:29 (Milk Of Magnesia Liq) 30 ml Q12H PRN PO 11/20/17 15:15 (Senokot) 17.2 mg Q12H PRN PO 11/20/17 15:15 12/05/17 09:54 (Dulcolax Supp) 10 mg DAILY PRN RECTAL 11/20/17 15:15 (Lactulose Liq) 30 ml DAILY PRN PO 11/20/17 15:15 (NS Flush) 5 ml UNSCH PRN IV FLUSH 11/20/17 17:45 (Heparin Inj) 2,000 units UNSCH PRN IV FLUSH 11/20/17 17:45 (Duoneb Neb) 1 ampule Q4HR NEB PRN NEB 11/21/17 08:45 12/03/17 07:13 (Mycostatin Cream) 1 applic Q12HR TOPICAL 11/24/17 14:00 12/07/17 08:02 (Heparin Inj) 5,000 units Q12HR SQ 11/26/17 21:00 12/07/17 07:53 (Tylenol) 500 mg Q6H PRN PO 11/27/17 16:30 (Gentamicin Opht 0.3% Soln) 1 drop Q4HR EACH EYE 11/29/17 16:00 12/07/17 08:01 (Proamatine) 10 mg Q8HR PO 11/30/17 00:00 12/07/17 05:01 (Brethine Inj) 1 mg UNSCH PRN SQ 11/29/17 22:30 (Synthroid) 200 mcg DAILY@0600 PO 12/01/17 06:00 12/07/17 05:01 (NovoLOG SUPPLEMENTAL SCALE) 1 Q4H SQ 12/03/17 13:00 12/07/17 00:58 (Duoneb Neb) 1 ampule Q6HR NEB NEB 12/03/17 11:15 12/07/17 09:39 (Protonix Inj) 40 mg Q24H IV PUSH 12/03/17 12:00 12/06/17 12:49 Piperacillin Sod/ Tazobactam Sod 50 ml @ 100 mls/hr Q8H IV 12/03/17 14:00 12/07/17 05:01 (Brethine Inj) 1 mg UNSCH PRN SQ 12/04/17 09:15 (Decadron Inj) 4 mg DAILY IV PUSH 12/05/17 09:00 12/07/17 07:54 Lines Permacath site ok. Past Medical History ESRD DM CAD HF. HTN Enlarged liver, and ascites Past Surgical History Pacemaker CABGx4 with mitral valvuloplasty in february 2005 Right fifth toe amputation Right shoulder rotator cuff repair Has had repeated paracentesis to drain his ascites Allergies: Coded Allergies: adhesive (Unverified Adverse Reaction, Severe, SKIN BREAKDOWN/ULCERS, ) Uncoded Allergies: MSG (Allergy, Intermediate, bowel problems, 08/02/17) Objective . Vital Signs Date Time Temp Pulse Resp B/P (MAP) Pulse Ox O2 Delivery O2 Flow Rate FiO2 12/07/17 09:40 99 Nasal Cannula 2.00 12/07/17 06:00 68 12/07/17 04:00 68 12/07/17 04:00 98.1 68 20 123/57 (79) 100 12/07/17 02:00 67 12/07/17 00:00 98.1 68 14 113/65 (81) 100 12/07/17 00:00 68 12/06/17 22:00 68 12/06/17 20:00 98.2 69 25 118/58 (78) 100 12/06/17 20:00 69 12/06/17 19:27 100 Nasal Cannula 3.00 12/06/17 18:00 69 12/06/17 16:00 68 12/06/17 16:00 68 20 100 12/06/17 14:55 96 Nasal Cannula 3 12/06/17 14:00 40 12/06/17 14:00 68 12/06/17 12:00 93 28 114/56 (75) 100 12/06/17 12:00 40 12/06/17 12:00 93 12/06/17 11:30 90 25 107/53 (71) 100 12/06/17 11:30 90 12/06/17 11:06 90 21 119/57 (77) 99 12/06/17 11:06 90 . Laboratory Tests Test 12/07/17 05:35 White Blood Count 12.4 TH/MM3 Red Blood Count 2.67 MIL/MM3 Hemoglobin 8.1 GM/DL Hematocrit 25.2 % Mean Corpuscular Volume 94.4 FL Mean Corpuscular Hemoglobin 30.2 PG Mean Corpuscular Hemoglobin Concent 32.0 % Red Cell Distribution Width 17.1 % Platelet Count 135 TH/MM3 Mean Platelet Volume 10.4 FL Neutrophils (%) (Auto) 78.8 % Lymphocytes (%) (Auto) 4.7 % Monocytes (%) (Auto) 16.3 % Eosinophils (%) (Auto) 0.1 % Basophils (%) (Auto) 0.1 % Neutrophils # (Auto) 9.8 TH/MM3 Lymphocytes # (Auto) 0.6 TH/MM3 Monocytes # (Auto) 2.0 TH/MM3 Eosinophils # (Auto) 0.0 TH/MM3 Basophils # (Auto) 0.0 TH/MM3 CBC Comment DIFF FINAL Differential Comment Laboratory Tests Test 12/05/17 12:15 12/07/17 05:35 Random Cortisol 16.2 MCG/DL Blood Urea Nitrogen 45 MG/DL Creatinine 4.96 MG/DL Random Glucose 65 MG/DL Total Protein 5.7 GM/DL Albumin 2.4 GM/DL Calcium Level 9.1 MG/DL Alkaline Phosphatase 171 U/L Aspartate Amino Transf (AST/SGOT) 32 U/L Alanine Aminotransferase (ALT/SGPT) 11 U/L Total Bilirubin 0.7 MG/DL Sodium Level 137 MEQ/L Potassium Level 4.5 MEQ/L Chloride Level 99 MEQ/L Carbon Dioxide Level 30.0 MEQ/L Anion Gap 8 MEQ/L Estimat Glomerular Filtration Rate 12 ML/MIN Imaging Last Impressions Chest X-Ray 12/03/17 0000 Signed Impressions: Service Date/Time: Sunday, December 03, 2017 11:33 - CONCLUSION: 1. ET tube tip in good position. 2. Stable configuration of the right lower lung consolidative and right upper and left lower lung mixed infiltrates. Iván Goodman MD Head CT 11/30/17 0000 Signed Impressions: Service Date/Time: Thursday, November 30, 2017 22:05 - CONCLUSION: 1. No acute findings. No significant change. Uzair Berrios MD Abdomen X-Ray 11/29/17 0000 Signed Impressions: Service Date/Time: November 16:03 - CONCLUSION: NG tube tip extends into the duodenum Sami Burnett MD Cyst Biopsy Asp-Paracentesis US 11/22/17 0000 Signed Impressions: Service Date/Time: November 15:20 - CONCLUSION: Uncomplicated ultrasound guided paracentesis. 6 L of chylous appearing fluid was removed. Taj Oden MD Catheter Placement X-Ray 11/21/17 1554 Signed Impressions: Service Date/Time: Tuesday, November 21, 2017 11:42 - CONCLUSION: Uncomplicated PermaCath placement as above. James Mike MD Lower Extremity Ultrasound 11/13/17 0000 Signed Impressions: Service Date/Time: Monday, November 13, 2017 07:52 - CONCLUSION: No DVT seen in either leg. Jewel Kaiser MD Hand X-Ray 11/13/17 0000 Signed Impressions: Service Date/Time: Monday, November 13, 2017 10:18 - CONCLUSION: Osteoporosis. Extensive arterial calcifications. 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 No definite evidence of bony destruction or osteomyelitis Jared Upton MD Physical Exam GENERAL: Awake and alert, following commands, NAD. Slow to respond SKIN: Cool and dry. No rash. Edematous EYES: [place] conjunctiva. No petechia or hemorrhage. No scleral icterus. EARS, NOSE AND THROAT: Moist mucosa, no nasal discharge NECK: Trachea midline, supple and not tender CARDIOVASCULAR: Regular rate and rhythm. Has systolic murmur over L precordium and base of the heart RESPIRATORY: Decreased at both bases, coarse BS ABDOMEN: Soft, and bowel sounds present and hypoactive. No reaction to palpation. EXTREMITIES: No clubbing, cyanosis. Has edema of both feet and UE. Dry gangrene noted. Incision LUE dry, no redness NEUROLOGICAL: awake and following commands LINES: No evidence of infection Assessment & Plan Remarks IMPRESSION Progressive decline in mental status, better today Klebsiella MDR PNA Respiratory failure, extubated Possible new sepsis, had fevers last 24 hours, due to PNA Septic Thrombophlebitis: Enterobacter, completing Rx Enterobacter bacteremia, BC 11/05 (+), ?source - permacath C/S negative (?due to previous Abx) - concern with infected thrombus LUE AVF - completing Rx Thrombosis DRIL LUE AVF S/P Bypass LUE and ligation of AVF and DRIL ESRD on HD MWF Ascites, ?primary liver problem or other etiology LMF dry gangrene Encephalopathy, ?metabolic RECOMMENDATION Continue Zosyn Follow temps Monitor respiratory status Monitor progress Patient DNR status Palliative care following -family wants to see how he is this weekend before any final plans on disposition D/W Loraine Harris MD Dec 07, 2017 10:44
--- NOTE | 2017-12-07 11:09 | HHI.PR ---
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 and wiggles toes as well marked improvement off sedation to have swallow eval will monitor peripherally Subjective Subjective Comments No acute events reported Active Medications Current Medications Medications (Trade) Dose Ordered Sig/Renny Route Start Time Stop Time Status Last Admin (NS Flush) 2 ml BID IV FLUSH 11/12/17 21:00 12/07/17 07:54 (Tylenol) 650 mg Q4H PRN PO 11/12/17 20:00 12/04/17 08:36 (Zofran Inj) 4 mg Q6H PRN IVP 11/12/17 20:00 (Narcan Inj) 0.4 mg UNSCH PRN IV PUSH 11/12/17 20:00 (D50w (Vial) Inj) 50 ml UNSCH PRN IV PUSH 11/12/17 23:30 (Glucagon Inj) 1 mg UNSCH PRN OTHER 11/12/17 23:30 (Phoslo) 667 mg TID PO 11/13/17 09:00 12/06/17 12:49 (Ecotrin Ec) 162 mg DAILY PO 11/13/17 09:00 12/07/17 07:53 (Plavix) 75 mg DAILY PO 11/13/17 09:00 Future hold 12/07/17 07:54 (Baciguent Oint) 1 applic Q12HR TOPICAL 11/13/17 21:00 12/07/17 08:02 Sodium Chloride 1,000 ml @ 0 mls/hr Q0M PRN OTHER 11/13/17 14:09 12/03/17 18:45 (Heparin Inj) 8,000 units UNSCH PRN IV FLUSH 11/13/17 14:15 11/15/17 15:23 Sodium Chloride 1,000 ml @ 200 mls/hr Q5H PRN IV 11/13/17 14:09 11/26/17 07:15 Sodium Chloride 1,000 ml @ 0 mls/hr Q0M PRN OTHER 11/13/17 14:09 (Mannitol Inj) 12.5 gm UNSCH PRN IV 11/13/17 14:15 11/17/17 11:53 Albumin Human 100 ml @ 60 mls/hr UNSCH PRN IV 11/13/17 14:15 12/03/17 18:46 (NS Flush) 5 ml UNSCH PRN IV FLUSH 11/13/17 14:15 12/03/17 18:46 (Heparin Inj) UNSCH PRN .XX 11/13/17 14:15 12/03/17 18:48 (Gentamicin Inj) 20 mg UNSCH PRN OTHER 11/13/17 14:15 12/03/17 18:47 (Zofran Inj) 4 mg UNSCH PRN IV PUSH 11/13/17 14:15 (Tylenol) 650 mg UNSCH PRN PO 11/13/17 14:15 11/18/17 08:40 (Benadryl) 25 mg UNSCH PRN PO 11/13/17 14:15 (Nitrostat Sl) 0.4 mg UNSCH PRN SL 11/13/17 14:15 (Catapres) 0.1 mg UNSCH PRN PO 11/13/17 14:15 (Epogen Inj) 4,000 units UNSCH PRN IV PUSH 11/13/17 14:15 12/03/17 18:46 (Gelfoam 12 Mm/7 Mm Top) 1 foam UNSCH PRN TOP 11/13/17 14:15 (Coreg) 3.125 mg BID PO 11/16/17 21:00 Future Hold 11/22/17 08:37 (Neurontin) 100 mg TID PO 11/20/17 18:00 Future Hold 11/25/17 18:34 ([place]jo Thyroid) 60 mg BID PO 11/20/17 21:00 12/07/17 07:54 (Roxicodone) 5 mg Q4H PRN PO 11/20/17 15:15 (Dilaudid) 2 mg Q4H PRN PO 11/20/17 15:15 (Morphine Inj) 2 mg Q1H PRN IV PUSH 11/20/17 15:15 12/04/17 16:39 (Marleny-Colace) 1 tab BID PO 11/20/17 21:00 12/05/17 20:29 (Milk Of Magnesia Liq) 30 ml Q12H PRN PO 11/20/17 15:15 (Senokot) 17.2 mg Q12H PRN PO 11/20/17 15:15 12/05/17 09:54 (Dulcolax Supp) 10 mg DAILY PRN RECTAL 11/20/17 15:15 (Lactulose Liq) 30 ml DAILY PRN PO 11/20/17 15:15 (NS Flush) 5 ml UNSCH PRN IV FLUSH 11/20/17 17:45 (Heparin Inj) 2,000 units UNSCH PRN IV FLUSH 11/20/17 17:45 (Duoneb Neb) 1 ampule Q4HR NEB PRN NEB 11/21/17 08:45 12/03/17 07:13 (Mycostatin Cream) 1 applic Q12HR TOPICAL 11/24/17 14:00 12/07/17 08:02 (Heparin Inj) 5,000 units Q12HR SQ 11/26/17 21:00 12/07/17 07:53 (Tylenol) 500 mg Q6H PRN PO 11/27/17 16:30 (Gentamicin Opht 0.3% Soln) 1 drop Q4HR EACH EYE 11/29/17 16:00 12/07/17 08:01 (Proamatine) 10 mg Q8HR PO 11/30/17 00:00 12/07/17 05:01 (Brethine Inj) 1 mg UNSCH PRN SQ 11/29/17 22:30 (Synthroid) 200 mcg DAILY@0600 PO 12/01/17 06:00 12/07/17 05:01 (NovoLOG SUPPLEMENTAL SCALE) 1 Q4H SQ 12/03/17 13:00 12/07/17 00:58 (Duoneb Neb) 1 ampule Q6HR NEB NEB 12/03/17 11:15 12/07/17 09:39 (Protonix Inj) 40 mg Q24H IV PUSH 12/03/17 12:00 12/06/17 12:49 Piperacillin Sod/ Tazobactam Sod 50 ml @ 100 mls/hr Q8H IV 12/03/17 14:00 12/07/17 05:01 (Brethine Inj) 1 mg UNSCH PRN SQ 12/04/17 09:15 (Decadron Inj) 4 mg DAILY IV PUSH 12/05/17 09:00 12/07/17 07:54 Allergies Allergies Coded Allergies adhesive (Unverified Adverse Reaction, Severe, SKIN BREAKDOWN/ULCERS, 08/07/17 ) Uncoded Allergies MSG ( Allergy, Intermediate, bowel problems, 08/02/17) Exam I&O / VS Vital Signs Date Time Temp Pulse Resp B/P (MAP) Pulse Ox O2 Delivery O2 Flow Rate FiO2 12/07/17 09:40 99 Nasal Cannula 2.00 12/07/17 06:00 68 12/07/17 04:00 68 12/07/17 04:00 98.1 68 20 123/57 (79) 100 12/07/17 02:00 67 12/07/17 00:00 98.1 68 14 113/65 (81) 100 12/07/17 00:00 68 12/06/17 22:00 68 12/06/17 20:00 98.2 69 25 118/58 (78) 100 12/06/17 20:00 69 12/06/17 19:27 100 Nasal Cannula 3.00 12/06/17 18:00 69 12/06/17 16:00 68 12/06/17 16:00 68 20 100 12/06/17 14:55 96 Nasal Cannula 3 12/06/17 14:00 40 12/06/17 14:00 68 12/06/17 12:00 93 28 114/56 (75) 100 12/06/17 12:00 40 12/06/17 12:00 93 12/06/17 11:30 90 25 107/53 (71) 100 12/06/17 11:30 90 Objective Micro and Labs Laboratory Tests Test 12/06/17 11:50 12/07/17 05:35 Blood Gas Puncture Site RT BRACHIAL Blood Gas Patient Temperature 98.6 Blood Gas HCO3 31 Blood Gas Base Excess 6.0 Blood Gas Oxygen Saturation 84 Arterial Blood pH 7.41 Arterial Blood Partial Pressure CO2 50 Arterial Blood Partial Pressure O2 50 Arterial Blood Oxygen Content 8.7 Arterial Blood Carboxyhemoglobin 1.6 Arterial Blood Methemoglobin 1.2 Blood Gas Hemoglobin 8.7 Oxygen Delivery Device VENTILATOR Blood Gas Ventilator Setting CPAP 5/5PS Blood Gas Inspired Oxygen 40 White Blood Count 12.4 Red Blood Count 2.67 Hemoglobin 8.1 Hematocrit 25.2 Mean Corpuscular Volume 94.4 Mean Corpuscular Hemoglobin 30.2 Mean Corpuscular Hemoglobin Concent 32.0 Red Cell Distribution Width 17.1 Platelet Count 135 Mean Platelet Volume 10.4 Neutrophils (%) (Auto) 78.8 Lymphocytes (%) (Auto) 4.7 Monocytes (%) (Auto) 16.3 Eosinophils (%) (Auto) 0.1 Basophils (%) (Auto) 0.1 Neutrophils # (Auto) 9.8 Lymphocytes # (Auto) 0.6 Monocytes # (Auto) 2.0 Eosinophils # (Auto) 0.0 Basophils # (Auto) 0.0 CBC Comment DIFF FINAL Differential Comment Blood Urea Nitrogen 45 Creatinine 4.96 Random Glucose 65 Total Protein 5.7 Albumin 2.4 Calcium Level 9.1 Alkaline Phosphatase 171 Aspartate Amino Transf (AST/SGOT) 32 Alanine Aminotransferase (ALT/SGPT) 11 Total Bilirubin 0.7 Sodium Level 137 Potassium Level 4.5 Chloride Level 99 Carbon Dioxide Level 30.0 Anion Gap 8 Estimat Glomerular Filtration Rate 12 Date/Time Source Procedure Growth Status 12/03/17 15:00 Blood Peripheral Aerobic Blood Culture - Preliminary NO GROWTH IN 4 DAYS Resulted 12/03/17 15:00 Blood Peripheral Anaerobic Blood Culture - Preliminary NO GROWTH IN 4 DAYS Resulted 11/22/17 15:38 Fluid Peritoneal Fluid Gram Stain - Final Complete 11/22/17 15:38 Fluid Peritoneal Fluid Body Fluid Culture - Final NO GROWTH IN 72 HRS.--AEROBICALLY OR ... Complete 12/03/17 12:39 Sputum Endotracheal Gram Stain - Final Complete 12/03/17 12:39 Sputum Culture - Final Klebsiella Pneumoniae Esbl Pos Multi-Drug Resistant Complete 11/23/17 17:40 Catheter Tip Central Venous Line Fungal Culture - Final Complete Jennifer Hayden MD Dec 07, 2017 11:09
--- NOTE | 2017-12-07 11:20 | HHI.HCPN ---
Reason for visit a. To assist with evaluation and management of symptoms including: Pain, shortness of breath, debility. b. To assist medical decision maker(s) with: better understanding of current medical conditions; weighing benefits/burdens of medical treatment options; making medical treatment decisions. . (Lisa Saha) Subjective/Interval History Palliative care follow-up for further clarifications of goals of care. Patient seen in medical ICU. Medically extubated yesterday, currently tolerating O2 via nasal cannula at 2 L. Patient alert to self, disoriented as to place, time and situation. Patient will be reporting starting to his medical condition. Verbalize knowing that he is very sick but was unable to elaborate on details. Patient denies pain, shortness of breath, nausea or abdominal discomfort. Very weak, intermittently following simple commands. Falling asleep in between our conversation. Laboratory workup today revealed a WBC of 12.4, Hgb 8.1 and platelet count 135. BUN/creatinine 45/4.96, scheduled for hemodialysis today. Patient afebrile, stable hemodynamically. No new imaging for review. Speech therapy following, patient on pured diet with nectar thick liquids. Met with patient's Jeanine at bedside. Medical update provided. Goals of therapy remain unchanged, continue aggressive management short of no code. Family wishing to allow the weekend to reassess patient's clinical condition. Hospice philosophy and benefits previously introduced, family receptive to hospice should patient's clinical condition worsen or additional decline. Reviewed case with Dr. Martinez and bedside RN. . Family/friend interactions See interval note. . (Lisa Saha) Advance Directives Living Will: Copy in medical record Health Care Surrogate: Copy in medical record (Lisa Saha) Advance Directive Specifics Date completed: 12/05/2013. . Health Care Surrogate(s): Patient designated her son Derrick Hernandez as surrogate decision maker, alternate surrogate is Jeanine and son Iván. . Documented care wishes: Living will with standard verbiage as it pertains to terminal condition, end- stage condition or persistent vegetative state. . Significant change in goals: Goals of therapy remain aggressive short of no code. . (Lisa Saha) Objective Vital Signs Date Time Temp Pulse Resp B/P (MAP) Pulse Ox O2 Delivery O2 Flow Rate FiO2 12/07/17 09:40 99 Nasal Cannula 2.00 12/07/17 06:00 68 12/07/17 04:00 68 12/07/17 04:00 98.1 68 20 123/57 (79) 100 12/07/17 02:00 67 12/07/17 00:00 98.1 68 14 113/65 (81) 100 12/07/17 00:00 68 12/06/17 22:00 68 12/06/17 20:00 98.2 69 25 118/58 (78) 100 12/06/17 20:00 69 12/06/17 19:27 100 Nasal Cannula 3.00 12/06/17 18:00 69 12/06/17 16:00 68 12/06/17 16:00 68 20 100 12/06/17 14:55 96 Nasal Cannula 3 12/06/17 14:00 40 12/06/17 14:00 68 12/06/17 12:00 93 28 114/56 (75) 100 12/06/17 12:00 40 12/06/17 12:00 93 12/06/17 11:30 90 25 107/53 (71) 100 12/06/17 11:30 90 Intake & Output 12/07/17 12/07/17 07:00 19:00 Intake Total 100 ml Output Total 0 ml Balance 100 ml IV Total 100 ml Tube Feeding 0 ml Output Urine Total 0 ml # Bowel Movements 1 Physical Exam CONSTITUTIONAL/GENERAL: This is an adequately nourished patient, in no apparent distress. TUBES/LINES/DRAINS: Nasal cannula, right Vas-Cath, Reese catheter, SCDs. SKIN: No jaundice, rashes, or lesions. Ecchymoses on upper extremities. Skin temperature appropriate. Not diaphoretic. multiple necrotic digits bilaterally. HEAD: Atraumatic. Normocephalic. EYES: Pupils equal and round and reactive. No scleral icterus. No injection or drainage. ENT: Hearing grossly normal. Nose without bleeding or purulent drainage. Moist oral mucosa. NECK: Trachea midline. Supple, nontender. CARDIOVASCULAR: Regular rate and rhythm. Peripheral pedal pulses symmetric. RESPIRATORY/CHEST: Symmetric, unlabored respirations. Coarse breath sounds bilaterally. Tolerating O2 via nasal cannula. GASTROINTESTINAL: Abdomen obese, large, round. Bowel sounds present. GENITOURINARY: Without palpable bladder distension. Reese catheter in place. MUSCULOSKELETAL: Extremities without clubbing. Significant weeping edema to bilateral upper extremities, right more than left. NEUROLOGICAL: Awake, alert x self. Disoriented as to situation, place and time. Intermittently following commands. PSYCHIATRIC: Calm. . (Lisa Saha) Diagnostic Tests Laboratory Laboratory Tests Test 12/05/17 04:00 12/05/17 12:15 12/06/17 11:50 12/07/17 05:35 Random Vancomycin Level 26.5 COMMENT Random Cortisol 16.2 MCG/DL Blood Gas Puncture Site RT BRACHIAL Blood Gas Patient Temperature 98.6 Blood Gas HCO3 31 mmol/L (22-26) Blood Gas Base Excess 6.0 mmol/L (-2-2) Blood Gas Oxygen Saturation 84 % (90-100) Arterial Blood pH 7.41 (7.380-7.420) Arterial Blood Partial Pressure CO2 50 mmHg (38-42) Arterial Blood Partial Pressure O2 50 mmHg (61-120) Arterial Blood Oxygen Content 8.7 Vol % (12.0-20.0) Arterial Blood Carboxyhemoglobin 1.6 % (0-4) Arterial Blood Methemoglobin 1.2 % (0-2) Blood Gas Hemoglobin 8.7 G/DL (12.0-16.0) Oxygen Delivery Device VENTILATOR Blood Gas Ventilator Setting CPAP 5/5PS Blood Gas Inspired Oxygen 40 % White Blood Count 12.4 TH/MM3 (4.0-11.0) Red Blood Count 2.67 MIL/MM3 (4.50-5.90) Hemoglobin 8.1 GM/DL (13.0-17.0) Hematocrit 25.2 % (39.0-51.0) Mean Corpuscular Volume 94.4 FL (80.0-100.0) Mean Corpuscular Hemoglobin 30.2 PG (27.0-34.0) Mean Corpuscular Hemoglobin Concent 32.0 % (32.0-36.0) Red Cell Distribution Width 17.1 % (11.6-17.2) Platelet Count 135 TH/MM3 (150-450) Mean Platelet Volume 10.4 FL (7.0-11.0) Neutrophils (%) (Auto) 78.8 % (16.0-70.0) Lymphocytes (%) (Auto) 4.7 % (9.0-44.0) Monocytes (%) (Auto) 16.3 % (0.0-8.0) Eosinophils (%) (Auto) 0.1 % (0.0-4.0) Basophils (%) (Auto) 0.1 % (0.0-2.0) Neutrophils # (Auto) 9.8 TH/MM3 (1.8-7.7) Lymphocytes # (Auto) 0.6 TH/MM3 (1.0-4.8) Monocytes # (Auto) 2.0 TH/MM3 (0-0.9) Eosinophils # (Auto) 0.0 TH/MM3 (0-0.4) Basophils # (Auto) 0.0 TH/MM3 (0-0.2) CBC Comment DIFF FINAL Differential Comment Blood Urea Nitrogen 45 MG/DL (7-18) Creatinine 4.96 MG/DL (0.60-1.30) Random Glucose 65 MG/DL (74-106) Total Protein 5.7 GM/DL (6.4-8.2) Albumin 2.4 GM/DL (3.4-5.0) Calcium Level 9.1 MG/DL (8.5-10.1) Alkaline Phosphatase 171 U/L (45-117) Aspartate Amino Transf (AST/SGOT) 32 U/L (15-37) Alanine Aminotransferase (ALT/SGPT) 11 U/L (12-78) Total Bilirubin 0.7 MG/DL (0.2-1.0) Sodium Level 137 MEQ/L (136-145) Potassium Level 4.5 MEQ/L (3.5-5.1) Chloride Level 99 MEQ/L (98-107) Carbon Dioxide Level 30.0 MEQ/L (21.0-32.0) Anion Gap 8 MEQ/L (5-15) Estimat Glomerular Filtration Rate 12 ML/MIN (>89) (Lisa Saha) Result Diagram: 12/07/17 0535 12/07/17 0535 Procedures * 11/20/17: Left brachial-brachial bypass using vein with interposition graft * 11/21/17: Permacath placement. * 11/20/17: Endotracheal intubation. * 11/22/17: Paracenteses, 6 L removed. * 11/24/17: Medical extubation * 12/03/17: Reintubation * 12/06/17: Medical extubation . (Lisa Saha) Assessment and Plan Disease Oriented Problem List: (1) Sepsis (2) Acute respiratory failure (3) Metabolic encephalopathy (4) ESRD (end stage renal disease) on dialysis (5) Gangrene of finger of left hand Symptom Scale: (1) Pain 0-10 Scale: Unable to quantify Pertinent Non-Medical Issues Psychosocial: Patient is originally from [place]. Moved to [place] 28 years ago. Currently for the past 34 years. Has a total of 4 children, 2 with current . 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 No service. Spiritual: Gnosticist natalia. Legal: Advance directives completed. Ethical issues impacting care: No ethical issues identified. . Important Contacts Son Derrick/[facility] Patient's Jeanine Son Iván . Prognosis Mr. Hernandez is a 67-year-old male with a medical history significant for end- stage renal disease on hemodialysis, CAD status post CABG in 2004, CHF, hypertension, diabetes mellitus. Patient was transferred from [facility] to be evaluated by vascular surgery secondary to occluded left AV fistula at the proximal anastomosis as well as ischemic digits. Clinical course complicated by septic bacteremia, respiratory failure requiring intubation and mechanical ventilation, severe metabolic encephalopathy and hypotension. Patient at a very high risk for further complications, continue decline and . Overall prognosis is guarded at this time. . Code Status: No Code Plan * CODE STATUS: No code. DNR/DNI. * HEALTHCARE DECISION-MAKING: Patient unable at this time to participating in medical decision-making secondary to clinical condition, encephalopathy. However, improving. Advanced directives completed, patient has elected her son Derrick as healthcare surrogate decision maker, alternate surrogate is his Jeanine AND son Iván. * GOALS OF CARE: Goals of therapy remain unchanged, aggressive management short of NO code -DNR/DNI. Attempted to address goals of care with patient, however, remains encephalopathic -very poor insight into his medical condition. Family wishing to allow the weekend to reevaluate patient's condition. Family aware that patient remains at a very high risk for further complications, continued decline and . Hospice philosophy and benefits reviewed at length. Family receptive to hospice should patient's clinical condition worsen or additional decline. * SYMPTOMS: = Pain, secondary to multiple interventions, lines, necrotic digits , prolonged hospitalization. Oxycodone 5 mg and hydromorphone IV available as needed. Palliative care recommends discontinuation of morphine sulfate in the setting of end-stage renal disease given high risk for neurotoxicity. = Shortness of breath: Patient medically extubated yesterday. Tolerating O2 via nasal cannula. * Case discussed with Dr. Kumari and bedside RN. * Palliative care contact information has been provided to patient's family. * Palliative care will continue to follow-up for further clarifications of goals of care as patient's clinical course continues to evolve. Family receptive to this. . (Lisa Saha) Time Spent Total Floor Time (mins): 31 (Total time to include review of medical records, physical exam, goals of care conversation with patient and Jeanine, case discussion with ID and bedside RN.) >50% Counseling/Coord of Care: Yes (Lisa Saha) Attestation To help prompt me to consider important information that might be impacting today's encounter and assessment, information from prior notes written by myself or my colleagues may have been "brought forward" into today's note. My signature on this note, however, is an attestation that I personally performed the exam, history, and/or decision-making noted today, and, unless otherwise indicated, the interactions with patient, family, and staff as well as the review of records all occurred today. I also attest that the listed assessment and stated plan reflect my best clinical judgment today based on the combination of historical information, prior notes, and today's exam/ interactions. When time spent is documented, it refers only to time spent today by the signer, or if indicated, combined time spent today by collaborating physician/nurse practitioner. (Lisa Saha) Collaborating MD Comments Chart reviewed. Case discussed with palliative care VISUAL ARTIST. Above DANIEL note reviewed and I concur. . (Rashid Padgett MD) Lisa Saha Dec 07, 2017 11:20 Rashid Padgett MD Dec 12, 2017 17:28
--- NOTE | 2017-12-07 11:38 | HHI.NPPN ---
Subjective History of Present Illness Patient is a 67-year-old male with a history of end-stage renal disease on hemodialysis Sunday/Sunday/ Sunday, diabetes, CAD, CHF, hypertension was transferred from [facility] to be evaluated by vascular surgery. Patient states he was admitted to [facility] because he had low blood pressure readings at home. AV fistula has not been functioning or used for 6- 8 weeks and they have been using a permacath for dialysis. Permacath has been removed secondary to possible infection and vas cath has been placed. He has been treated with cefepime IV. Last dialysis was Sunday and 1.5 L removed. Patient has a necrotic left middle finger that patient states has been going on for the last 12 weeks. Additional Remarks Patient extubated breathing easily. No SOB. Family at bedside. Dialysis planned today (Kathleen Olguin) Review of Systems Genitourinary Remarks (Kathleen Olguin) Objective Data Data Vital Signs Date Time Temp Pulse Resp B/P (MAP) Pulse Ox O2 Delivery O2 Flow Rate FiO2 12/07/17 09:40 99 Nasal Cannula 2.00 12/07/17 06:00 68 12/07/17 04:00 68 12/07/17 04:00 98.1 68 20 123/57 (79) 100 12/07/17 02:00 67 12/07/17 00:00 98.1 68 14 113/65 (81) 100 12/07/17 00:00 68 12/06/17 22:00 68 12/06/17 20:00 98.2 69 25 118/58 (78) 100 12/06/17 20:00 69 12/06/17 19:27 100 Nasal Cannula 3.00 12/06/17 18:00 69 12/06/17 16:00 68 12/06/17 16:00 68 20 100 12/06/17 14:55 96 Nasal Cannula 3 12/06/17 14:00 40 12/06/17 14:00 68 12/06/17 12:00 93 28 114/56 (75) 100 12/06/17 12:00 40 12/06/17 12:00 93 (Kathleen Olguin) -: 12/07/17 0535 12/07/17 0535 Imaging Last Impressions Chest X-Ray 12/04/17 0000 Signed Impressions: Service Date/Time: Monday, December 04, 2017 11:09 - CONCLUSION: 1. Uncomplicated line placement. No evidence of pneumothorax. James Mike MD Head CT 11/30/17 0000 Signed Impressions: Service Date/Time: Thursday, November 30, 2017 22:05 - CONCLUSION: 1. No acute findings. No significant change. Uzair Berrios MD Abdomen X-Ray 11/29/17 0000 Signed Impressions: Service Date/Time: November 16:03 - CONCLUSION: NG tube tip extends into the duodenum Sami Burnett MD Cyst Biopsy Asp-Paracentesis US 11/22/17 0000 Signed Impressions: Service Date/Time: November 15:20 - CONCLUSION: Uncomplicated ultrasound guided paracentesis. 6 L of chylous appearing fluid was removed. Taj Oden MD Catheter Placement X-Ray 11/21/17 1554 Signed Impressions: Service Date/Time: Tuesday, November 21, 2017 11:42 - CONCLUSION: Uncomplicated PermaCath placement as above. James Mike MD Lower Extremity Ultrasound 11/13/17 0000 Signed Impressions: Service Date/Time: Monday, November 13, 2017 07:52 - CONCLUSION: No DVT seen in either leg. Jewel Kaiser MD Hand X-Ray 11/13/17 0000 Signed Impressions: Service Date/Time: Monday, November 13, 2017 10:18 - CONCLUSION: Osteoporosis. Extensive arterial calcifications. 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 No definite evidence of bony destruction or osteomyelitis Jared Upton MD Tubes & Lines: Perma-Cath (Kathleen OlguinP) Physical Exam General Appearance: No Acute Distress (Kathleen Olguin CHEMICAL PATHOLOGIST) Eyes Eye Exam: Pupils Equal (Kathleen Olguin CHEMICAL PATHOLOGIST) Throat Throat Exam: Oral Mucosa [place] & Moist Throat Remarks NG tube (Kathleen Olguin CHEMICAL PATHOLOGIST) Pulmonary Resp Exam: Breath Sounds Equal, No Distress, Rhonchi, Decreased Bases (Kathleen Olguin. CHEMICAL PATHOLOGIST) Cardiology CV Exam: Regular (Kathleen Olguin CHEMICAL PATHOLOGIST) Gastrointestinal/Abdomen GI Exam: Soft, Non-Tender, Bowel Sounds Present (Kathleen Olguin) Integumentary Skin Remarks necrotic area on tip on left hand middle finger (Kathleen Olguin) Extremeties Extremities Exam: Moderate Edema (Left arm and hand swelling.) Extremeties Remarks upper extremity (Kathleen Olguin) Neurologic Neuro Exam: Sedated (Kathleen Olguin) Assessment/Plan Discussed Condition With: Spouse Assessment Summary: End Stage Renal Disease Problem List: (1) ESRD (end stage renal disease) on dialysis ICD Codes: N18.6 - End stage renal disease; Z99.2 - Dependence on renal dialysis Plan: Dialysis MWF s/p L UE bypass 2/6 ligation of AVF and DRIL Antibiotics per ID ESBL noted in urine on isolation Epogen with dialysis More alert today, family at bedside Potassium WNL Dialysis planned for today. (2) Gangrene of finger of left hand ICD Codes: I96 - Gangrene, not elsewhere classified Plan: necrotic area on left hand middle finger (3) AV fistula occlusion ICD Codes: T82.898A - Other specified complication of vascular prosthetic devices, implants and grafts, initial encounter Plan: s/p L UE bypass 2/6 ligation of AVF and DRIL (4) Diabetes mellitus ICD Codes: E11.9 - Type 2 diabetes mellitus without complications Plan: Maintain BS between 140mg/dl to 180 mg/dl (Kathleen Olguin) Problem List: (1) ESRD (end stage renal disease) on dialysis ICD Codes: N18.6 - End stage renal disease; Z99.2 - Dependence on renal dialysis Plan: Dialysis MWF s/p L UE bypass 2/6 ligation of AVF and DRIL Antibiotics per ID ESBL noted in urine on isolation Epogen with dialysis More alert today, family at bedside Potassium WNL Dialysis planned for today. Patient seen and examined, agree with above. D/W the and family at bed side. (2) Gangrene of finger of left hand ICD Codes: I96 - Gangrene, not elsewhere classified Plan: necrotic area on left hand middle finger (3) AV fistula occlusion ICD Codes: T82.898A - Other specified complication of vascular prosthetic devices, implants and grafts, initial encounter Plan: s/p L UE bypass 2/ ligation of AVF and DRIL (4) Diabetes mellitus ICD Codes: E11.9 - Type 2 diabetes mellitus without complications Plan: Maintain BS between 140mg/dl to 180 mg/dl (Kim Santos MD) Kathleen Olguin Dec 07, 2017 11:38 Kim Santos MD Dec 07, 2017 22:48
[2017-12-07] MEDS: PANTOPRAZOLE SODIUM 40 MG VIAL IV PUSH SCH (12:00)
[2017-12-07] MEDS: HEPARIN SODIUM - IV 10,000 UNITS/10 ML VIAL PRN (13:52)
[2017-12-07] MEDS: EPOETIN ALFA 10,000 UNITS/ML VIAL IV PUSH PRN (13:53)
[2017-12-07] MEDS: GENTAMICIN SULFATE 20 MG/2 ML VIAL OTHER PRN (13:54)
[2017-12-08] VITALS (24 sets, daily range): BP systolic 133–160; BP diastolic 49–68; PULSE 70–94; RESP 19–40; TEMP 98.2–98.3; O2SAT 97–100
[2017-12-08] MEDS: INSULIN ASPART SUPPLEMENTAL SCALE SQ SCH ×6 (01:00→21:58)
[2017-12-08] MEDS: GENTAMICIN SULFATE 0.3% OPHT SOLN 5 ML BTL EACH EYE SCH ×5 (02:49→20:56)
[2017-12-08] MEDS: LEVOTHYROXINE SODIUM 200 MCG TAB PO SCH (04:43)
[2017-12-08] MEDS: PIPERACIL-TAZO 2.25 GM PREMIX 50 ML IV SCH ×3 (04:43→21:59)
[2017-12-08] MEDS: MIDODRINE 5 MG TAB PO SCH ×3 (04:43→21:59)
[2017-12-08 07:01] LABS: BICARBONATE 30.3 MEQ/L (21.0-32.0); CREATININE 3.76 MG/DL (0.60-1.30)
[2017-12-08] MEDS: CLOPIDOGREL 75 MG TAB PO SCH (08:36)
[2017-12-08] MEDS: DOCUSATE SODIUM 50 MG/SENNA 8.6 MG TAB PO SCH ×2 (08:36→20:57)
[2017-12-08] MEDS: THYROID 60 MG TAB PO SCH ×2 (08:36→20:57)
[2017-12-08] MEDS: ASPIRIN EC 81 MG TABEC PO SCH (08:36)
[2017-12-08] MEDS: CALCIUM ACETATE 667 MG CAP PO SCH ×3 (08:37→17:18)
[2017-12-08] MEDS: NYSTATIN 100,000 UNIT/GM CREAM 15 GM TOPICAL SCH ×2 (08:37→20:57)
[2017-12-08] MEDS: BACITRACIN TOP OINT 15 GM TUBE TOPICAL SCH ×2 (08:37→21:59)
[2017-12-08] MEDS: HEPARIN SODIUM - SQ 10,000 UNITS/ML VIAL SQ SCH ×2 (08:37→20:57)
[2017-12-08] MEDS: SODIUM CHLORIDE 0.9% FLUSH 10 ML FLUSH IV FLUSH SCH ×2 (08:39→20:56)
[2017-12-08] MEDS: DEXAMETHASONE SOD PHOS 4 MG/ML VIAL IV PUSH SCH (08:40)
--- NOTE | 2017-12-08 09:07 | PD.VS.PN ---
Subjective Procedure(s): L brachial-brachial bypass, ligation of AVF Subjective/Hospital Course much more alert today following complex commands and holding meaningful conversations. extubated MILLS Objective Vitals/I&O Date Time Temp Pulse Resp B/P (MAP) Pulse Ox O2 Delivery O2 Flow Rate FiO2 12/08/17 06:00 80 12/08/17 04:00 70 19 133/56 (81) 100 12/08/17 04:00 71 12/08/17 02:00 70 12/08/17 00:00 98.3 92 25 141/49 (79) 100 12/08/17 00:00 92 12/07/17 22:00 72 12/07/17 20:43 97 Nasal Cannula 3.00 12/07/17 20:00 98.1 70 21 141/65 (90) 99 12/07/17 20:00 70 12/07/17 18:12 70 12/07/17 18:10 73 12/07/17 18:06 70 12/07/17 18:03 70 12/07/17 18:00 70 12/07/17 17:16 70 29 82/28 (46) 100 12/07/17 17:00 70 22 97/53 (68) 100 12/07/17 16:45 70 27 98/50 (66) 100 12/07/17 16:30 69 23 95/50 (65) 100 12/07/17 16:15 70 18 105/55 (72) 100 12/07/17 16:00 70 12/07/17 16:00 70 28 100/58 (72) 100 12/07/17 14:15 70 12/07/17 14:15 70 18 119/58 (78) 100 12/07/17 14:00 70 19 116/56 (76) 100 12/07/17 14:00 70 12/07/17 13:45 69 24 127/60 (82) 100 12/07/17 13:45 69 12/07/17 13:30 68 12/07/17 13:15 69 12/07/17 13:01 69 12/07/17 13:01 69 21 113/56 (75) 100 12/07/17 13:00 69 12/07/17 12:45 68 12/07/17 12:41 69 12/07/17 12:41 69 18 137/58 (84) 100 12/07/17 12:30 69 12/07/17 12:15 68 12/07/17 12:00 68 12/07/17 12:00 68 17 100 12/07/17 11:01 89 23 93/50 (64) 86 12/07/17 11:01 89 12/07/17 10:01 71 18 122/56 (78) 100 12/07/17 10:01 71 12/07/17 10:00 73 12/07/17 10:00 73 21 100 12/07/17 09:40 99 Nasal Cannula 2.00 12/08/17 12/08/17 12/08/17 07:00 15:00 23:00 Intake Total 50 ml Output Total 0 ml Balance 50 ml Exam: L UE incision intact with priya Modest edema Hand warm palpable pulses Laboratory Laboratory Tests Test 12/08/17 04:45 Blood Urea Nitrogen 32 Creatinine 3.76 Random Glucose 119 Calcium Level 9.0 Sodium Level 140 Potassium Level 3.8 Chloride Level 99 Carbon Dioxide Level 30.3 Anion Gap 11 Estimat Glomerular Filtration Rate 16 Date/Time Source Procedure Growth Status 12/03/17 15:00 Blood Peripheral Aerobic Blood Culture - Preliminary NO GROWTH IN 4 DAYS Resulted 12/03/17 15:00 Blood Peripheral Anaerobic Blood Culture - Preliminary NO GROWTH IN 4 DAYS Resulted 11/22/17 15:38 Fluid Peritoneal Fluid Gram Stain - Final Complete 11/22/17 15:38 Fluid Peritoneal Fluid Body Fluid Culture - Final NO GROWTH IN 72 HRS.--AEROBICALLY OR ... Complete 12/03/17 12:39 Sputum Endotracheal Gram Stain - Final Complete 12/03/17 12:39 Sputum Culture - Final Klebsiella Pneumoniae Esbl Pos Multi-Drug Resistant Complete 11/23/17 17:40 Catheter Tip Central Venous Line Fungal Culture - Final Complete Assessment and Plan Plan S/p L UE bypass, access ligation UE warm and bypass patent by exam Plan 1. encourage nutrition 2. PT/OT Discharge Planning Anytime from a vascular surgery standpoint but clearly many other issues (ID, mental status, cardiac, renal) Issa Jansen MD Dec 08, 2017 09:07
[2017-12-08 11:13] LABS: AUTOMATED NEUTROPHIL # 11.4 TH/MM3 (1.8-7.7); BASOPHIL % 0.2 % (0.0-2.0); EOSINOPHIL # 0.1 TH/MM3 (0-0.4); EOSINOPHIL % 0.5 % (0.0-4.0); HEMATOCRIT 27.4 % (39.0-51.0); HEMOGLOBIN 8.7 GM/DL (13.0-17.0); LYMPHOCYTE # 0.7 TH/MM3 (1.0-4.8); MEAN CORPUSCULAR HEMOGLOBIN 30.2 PG (27.0-34.0); MEAN CORPUSCULAR HGB CONC 31.8 % (32.0-36.0); MONO % 15.1 % (0.0-8.0); MONOCYTE # 2.2 TH/MM3 (0-0.9); NEUT % 79.2 % (16.0-70.0); PLATELET COUNT 162 TH/MM3 (150-450); RED BLOOD COUNT 2.88 MIL/MM3 (4.50-5.90); RED CELL DISTRIBUTION WIDTH 17.5 % (11.6-17.2); WHITE BLOOD COUNT 14.5 TH/MM3 (4.0-11.0)
--- NOTE | 2017-12-08 11:58 | HHI.NPPN ---
Subjective History of Present Illness Patient is a 67-year-old male with a history of end-stage renal disease on hemodialysis Sunday/Sunday/ Sunday, diabetes, CAD, CHF, hypertension was transferred from [facility] to be evaluated by vascular surgery. Patient states he was admitted to [facility] because he had low blood pressure readings at home. AV fistula has not been functioning or used for 6- 8 weeks and they have been using a permacath for dialysis. Permacath has been removed secondary to possible infection and vas cath has been placed. He has been treated with cefepime IV. Last dialysis was Sunday and 1.5 L removed. Patient has a necrotic left middle finger that patient states has been going on for the last 12 weeks. Additional Remarks Confused today, tolerated HD yesterday Review of Systems Genitourinary Remarks Objective Data Data Vital Signs Date Time Temp Pulse Resp B/P (MAP) Pulse Ox O2 Delivery O2 Flow Rate FiO2 12/08/17 11:24 85 12/08/17 10:01 73 23 148/60 (89) 99 12/08/17 10:01 73 12/08/17 10:00 79 23 99 12/08/17 10:00 79 12/08/17 09:01 93 24 148/58 (88) 100 12/08/17 08:01 71 23 134/60 (84) 100 12/08/17 08:00 71 32 100 12/08/17 08:00 70 12/08/17 07:33 99 Nasal Cannula 3.00 12/08/17 06:00 80 12/08/17 04:00 70 19 133/56 (81) 100 12/08/17 04:00 71 12/08/17 02:00 70 12/08/17 00:00 98.3 92 25 141/49 (79) 100 12/08/17 00:00 92 12/07/17 22:00 72 12/07/17 20:43 97 Nasal Cannula 3.00 12/07/17 20:00 98.1 70 21 141/65 (90) 99 12/07/17 20:00 70 12/07/17 18:12 70 12/07/17 18:10 73 12/07/17 18:06 70 12/07/17 18:03 70 12/07/17 18:00 70 12/07/17 17:16 70 29 82/28 (46) 100 12/07/17 17:00 70 22 97/53 (68) 100 12/07/17 16:45 70 27 98/50 (66) 100 12/07/17 16:30 69 23 95/50 (65) 100 12/07/17 16:15 70 18 105/55 (72) 100 12/07/17 16:00 70 12/07/17 16:00 70 28 100/58 (72) 100 12/07/17 14:15 70 12/07/17 14:15 70 18 119/58 (78) 100 12/07/17 14:00 70 19 116/56 (76) 100 12/07/17 14:00 70 12/07/17 13:45 69 24 127/60 (82) 100 12/07/17 13:45 69 12/07/17 13:30 68 12/07/17 13:15 69 12/07/17 13:01 69 12/07/17 13:01 69 21 113/56 (75) 100 12/07/17 13:00 69 12/07/17 12:45 68 12/07/17 12:41 69 12/07/17 12:41 69 18 137/58 (84) 100 12/07/17 12:30 69 12/07/17 12:15 68 12/07/17 12:00 68 12/07/17 12:00 68 17 100 -: 12/07/17 0535 12/08/17 0445 Tubes & Lines: Perma-Cath Physical Exam General Appearance: No Acute Distress Eyes Eye Exam: Pupils Equal Throat Throat Exam: Oral Mucosa [place] & Moist Pulmonary Resp Exam: Breath Sounds Equal, No Distress, Rhonchi, Decreased Bases Cardiology CV Exam: Regular Gastrointestinal/Abdomen GI Exam: Soft, Non-Tender, Bowel Sounds Present Extremeties Extremities Exam: Moderate Edema (Left arm and hand swelling.) Neurologic Neuro Exam: Awake, Sedated Assessment/Plan Discussed Condition With: Spouse Assessment Summary: End Stage Renal Disease Problem List: (1) ESRD (end stage renal disease) on dialysis ICD Codes: N18.6 - End stage renal disease; Z99.2 - Dependence on renal dialysis Plan: Dialysis MWF s/p LUE AVF ligation for hand ischemia Antibiotics per ID ESBL noted in urine on isolation Epogen with dialysis More confused per family today - continue to monitor. Tolerated HD yesterday, plan next HD Sunday (2) Gangrene of finger of left hand ICD Codes: I96 - Gangrene, not elsewhere classified Plan: necrotic area on left hand middle finger (3) AV fistula occlusion ICD Codes: T82.898A - Other specified complication of vascular prosthetic devices, implants and grafts, initial encounter Plan: s/p L UE bypass 2/6 ligation of AVF and DRIL (4) Diabetes mellitus ICD Codes: E11.9 - Type 2 diabetes mellitus without complications Plan: Maintain BS between 140mg/dl to 180 mg/dl Taj Barr MD Dec 08, 2017 11:58
[2017-12-08] MEDS: PANTOPRAZOLE SODIUM 40 MG VIAL IV PUSH SCH (12:54)
[2017-12-08 13:00] LABS: BANDS 18 % (0-6); LYMPHOCYTES 9 % (9-44); MONOCYTES 10 % (0-8); MYELOCYTES 1 % (0-0); NEUTROPHIL # MANUAL DIFF 11.7 TH/MM3 (1.8-7.7); POLYS (SEG NEUTROPHILS) 62 % (16-70); TOXIC GRANULATION 1+ (NORMAL)
[2017-12-08 13:01] LABS: OVALOCYTES 1+ (NORMAL)
[2017-12-08] MEDS: RESP: ALBUTEROL 2.5 MG/IPRATROPIUM 0.5 MG NEB (PRN) NEB (15:57)
--- NOTE | 2017-12-08 20:04 | HHI.CCPN ---
Subjective Remarks/Hospital Course 67-year-old male, has been at [facility] for the last 15 days, transferred to [facility] for vascular evaluation. Patient has known end-stage renal disease and gets hemodialysis every Sunday and Sunday. He had a left upper extremity AV fistula, and it had some problem, so he underwent left upper extremity access revision, left upper extremity distal revascularization and interval ligation, last August 07, 2017. He was discharged, and apparently the fistula was working okay, and during that admission also he had that left middle finger dry gangrene which was felt to be ischemic in nature due to steal syndrome. As an outpatient, his fistula apparently stopped working, so he had a permacath placed in his right IJ. Patient stated that he's had problem on and off with low blood pressure for the last 4 months. The hypotension were getting worse and he ended up getting admitted at [facility] where he stayed for at least 15 days. During that admission, he had some positive blood culture done on November 05 that grew Enterobacter cloaca. Blood culture from November 07 were negative. His permacath was removed on November 07 and the culture of that was negative. Patient underwent L UE bypass brachial-brachial and ligation of the AV fistula. Is scheduled for permacath placement tomorrow morning and remains in the ICU sedated and intubated. Subjective: 11/21: Afebrile .The patient remains intubated and sedated. Plan for permacath placement this a.m.. Will resume ventilator weaning postoperatively. 11/22: Attempted CPAP trials postoperatively yesterday, unsuccessful. Patient continues on phenylephrine currently a 60 mics/minute. Propofol discontinued Precedex infusion initiated CPAP trials are reinitiated this a.m. with plans for SBT later this morning and possible extubation. 11/23: Getting HD. Patient is awake, but very weak. On CPAP but requiring high pressure support 20. Had US guided paracentesis yesterday with 6L fluid removed- chylous. Remains on Precedex and remains on Shon-Synephrine at 60 mcg/min increased to 100 mcg/min 11/24: Remains intubated off all sedation. Requiring Shon-Synephrine at 80 mcg/ min to keep map above 65. HD with 2L removed. Left groin central line was removed and right groin hemodialysis catheter was removed yesterday 11/23/17. New right IJ central line placed yesterday 11/25: Extubated yesterday tolerating well respiratory harris. Remains on Shon- Synephrine to maintain map above 65. Cultures remain negative. Patient intermittently not cooperative with care. He is oriented 2 11/26: At around 2 AM today had episode of unresponsiveness, correlating with hypotension was hard to awake. Currently patient is awake but very lethargic voice is very soft but oriented to person and place. I will hold the Neurontin avoid all sedation currently on Shon-Synephrine at 30 mcg/min. completed hemodialysis today with 3L removed 11/27: Mentation and alertness seems to be slightly improved. TSH elevated at 8.8, increase Synthroid to 150 mcg per day. Patient is oriented to person and place. Remains very weak 11/28: Somnolent but wakes up easily, remains oriented to person. Chest x-ray unchanged. No evidence of new weakness. Discussed with Dr. Jansen 12/03 Reconsult: Patient was found unresponsive he was subsequently intubated and placed on mechanical ventilation. T:100.4 last night. 12/04: Remains encephalopathic, orally intubated on mechanical ventilation. 12/05: Remains encephalopathic, orally intubated on mechanical ventilation. On Levophed for pressor support. 12/06: Much more awake and alert. Orally intubated on mechanical ventilation. Started on Decadron yesterday and blood pressures have improved. 12/07 Patient s/p extubation yesterday. On 3L oxygen. Afebrile. For HD today. Subjective: 12/08 On NC. Afebrile. Speech therapy evaluated and recommended pureed diet, thin liquid. RN states not much po intake. Objective Vital Signs Date Time Temp Pulse Resp B/P (MAP) Pulse Ox O2 Delivery O2 Flow Rate FiO2 12/08/17 19:14 97 Nasal Cannula 3.00 12/08/17 18:01 94 12/08/17 16:00 98.2 12/08/17 13:01 26 153/66 (95) 12/06/17 14:00 40 Intake and Output 12/08/17 12/08/17 12/09/17 08:00 16:00 00:00 Intake Total 50 ml 60 ml Output Total 0 ml Balance 50 ml 60 ml Result Diagram: 12/08/17 1104 12/08/17 0445 Imaging Last Impressions Chest X-Ray 12/04/17 0000 Signed Impressions: Service Date/Time: Monday, December 04, 2017 11:09 - CONCLUSION: 1. Uncomplicated line placement. No evidence of pneumothorax. James Mike MD Head CT 11/30/17 0000 Signed Impressions: Service Date/Time: Thursday, November 30, 2017 22:05 - CONCLUSION: 1. No acute findings. No significant change. Uzair Berrios MD Abdomen X-Ray 11/29/17 0000 Signed Impressions: Service Date/Time: November 16:03 - CONCLUSION: NG tube tip extends into the duodenum Sami Burnett MD Cyst Biopsy Asp-Paracentesis US 11/22/17 0000 Signed Impressions: Service Date/Time: November 15:20 - CONCLUSION: Uncomplicated ultrasound guided paracentesis. 6 L of chylous appearing fluid was removed. Taj Oden MD Catheter Placement X-Ray 11/21/17 1554 Signed Impressions: Service Date/Time: Tuesday, November 21, 2017 11:42 - CONCLUSION: Uncomplicated PermaCath placement as above. James Mike MD Lower Extremity Ultrasound 11/13/17 0000 Signed Impressions: Service Date/Time: Monday, November 13, 2017 07:52 - CONCLUSION: No DVT seen in either leg. Jewel Kaiser MD Hand X-Ray 11/13/17 0000 Signed Impressions: Service Date/Time: Monday, November 13, 2017 10:18 - CONCLUSION: Osteoporosis. Extensive arterial calcifications. 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 No definite evidence of bony destruction or osteomyelitis Jared Upton MD Procedures 11/20 Sp LUE angiogram. 11/21 permacath placement Objective Remarks GENERAL: Chronically ill appearing male who is laying semirecumbent [place] [facility] SKIN: Warm and dry. Non-stageable pressure injury ~2cm to bilateral MTP. HEAD: Normocephalic. EYES: Pupils 2mm reactive bilaterally. No scleral icterus. No injection or drainage. NECK: Supple, trachea midline. No JVD or lymphadenopathy. CARDIOVASCULAR: Regular rate and rhythm without murmurs, gallops, or rubs. V- Paced rhythm on monitor. RESPIRATORY: Respirations are shallow with mild tachypnea, no accessory muscle use. No wheezes or rales. GASTROINTESTINAL: Abdomen soft, non-tender, nondistended. Bowel sounds present. : No urinary catheter in place. MUSCULOSKELETAL: No cyanosis. 2+ pitting edema BUE L>R. Incision medial aspect of left upper arm and proximal forearm with priya c/d/i without drainage. Hands are warm with palpable radial pulses. 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 Necrosis of distal phalanx and proximal middle phalanx of third digit of left hand, necrotic wound on radial aspect of second digit left hand distal to PIP. NEURO: Awake, tracks. Does not speak in response to questions. Moves extremities spontaneously. Does not follow commands. A/P Assessment and Plan NEURO: Metabolic encephalopathy - Monitor neuro status, avoid sedatives. -Neurontin on hold -D/c morphine and Dilaudid. Use tylenol prn pain 1-3, oxycodone prn 4-10. - CT head 11/26 and 11/30 negative - Not candidate for MRI brain due to pacer. - Ammonia level on 11/30 -B12 not low. - EEG 11/27 - mildly abnormal with mild encephalopathy -EEG 12/03: mod/severe encephalopathy, no ictal activity. Intermittent triphasic (which is c/w metabolic encephalopathy). No sz. Neuro is following- Dr. Hayden -Suspected metabolic encephalopathy Resp: Acute respiratory failure, resolved 12/06. - Extubated 11/24/17 Reintubated 12/03, extubated 12/06 Remains on NC. Mental status marginal and he is weak. Is DNR/DNI. Continue with oxygen keep sat >92% Duoneb q6 hours. Albuterol q2 prn. CVS: Hypotension Bilateral upper extremity ischemia -s/p L UE brachial-brachial bypass and access ligation 11/20/17 Dr. Jansen - Continue aspirin 162 daily, plavix 75 mg daily. - Midodrine 10 mg every 8 hours - cortisol level 16.2 . On Decadron 4 mg IV daily to cover for adrenal insufficiency on 12/05. Hypotension responded to therapy, suspected relative adrenal insufficiency. Now hypertension, will taper decadron to 2 mg IV daily. Could reasonably be transitioned to hydrocortisone po with or without cosyntropin stress. GI: Chronic moderate protein energy malnutrition. Dysphagia -Speech therapy evaluated and recommended pureed diet and thin liquids. Doubt he will meet nutritional needs orally. Will likely need Dobhoff tube with supplemental feeds if that is in keeping with goals of care. - Large-volume ascites removed 11/22/17 - On Protonix for GI prophylaxis - Reglan 5mg IV Q8hrly for GI motility on 12/05, d/c'd 12/07. : End-stage renal disease - Hemodialysis per nephrology - R PermCath placement 11/21 by IR. -Monitor renal function, avoid nephrotoxins, on HD M,W,F ID: Leukocytosis Septic thrombophlebitis resolved Enterobacter bacteremia, BC 11/05 (+), ?source - permacath C/S negative (?due to previous Abx) - concern with infected thrombus LUE AVF HCAP 12/03 Sputum cx: Kleb pneumonia ESBL Septic shock, resolved Antibiotics per ID, Dr. Martinez: Zosyn 12/03 #6. Plan for minimum 7 day course. Microbiology: 12/03/18 Klebsiella ESBL Heme: Chronic anemia Monitor CBC, on Epogen with HD Endo: Diabetes mellitus Hypothyroidism ?relative adrenal insufficinecy -SSI ( medium scale) with bedside glucose every 4 hours -On Synthroid 200mcg daily, [place] Synthroid 60mg BID, TSH 9.7 on 11/30 -Decadron as per above. DVT GI prophylaxis SCDs and Subcutaneous heparin 5000 q12 Pantoprazole for stress ulcer prophylaxis, change to po. Lines: peripheral IV's. R Permacath 11/21/17 Dr. Mike DNR/DNI. Palliative care following. Patient is currently not capacitated for medical decision-making. Son, Derrick, is his healthcare surrogate [phone]. Per palliative care documentation, hospice has been discussed and family has been receptive to hospice if there is additional decline. Level 2 followup Sri Amador MD Dec 08, 2017 20:04
[2017-12-08] MEDS ORDERED: RESP: ALBUTEROL 2.5 MG/3 ML NEB (PRN) NEB (20:30)
[2017-12-08] MEDS: RESP: ALBUTEROL 2.5 MG/IPRATROPIUM 0.5 MG NEB (SCH) NEB (22:04)
[2017-12-09] VITALS (17 sets, daily range): BP systolic 144–170; BP diastolic 63–73; PULSE 69–94; RESP 18–45; TEMP 97.8–98.4; O2SAT 96–100
[2017-12-09] MEDS: INSULIN ASPART SUPPLEMENTAL SCALE SQ SCH ×6 (01:00→21:35)
[2017-12-09] MEDS: RESP: ALBUTEROL 2.5 MG/IPRATROPIUM 0.5 MG NEB (SCH) NEB ×4 (03:19→20:47)
[2017-12-09] MEDS: GENTAMICIN SULFATE 0.3% OPHT SOLN 5 ML BTL EACH EYE SCH ×4 (04:56→12:05)
[2017-12-09 05:12] LABS: AUTOMATED NEUTROPHIL # 9.6 TH/MM3 (1.8-7.7); BASOPHIL % 0.2 % (0.0-2.0); EOSINOPHIL % 0.1 % (0.0-4.0); HEMOGLOBIN 8.2 GM/DL (13.0-17.0); LYMPH % 7.4 % (9.0-44.0); LYMPHOCYTE # 0.9 TH/MM3 (1.0-4.8); MEAN CORPUSCULAR HEMOGLOBIN 29.8 PG (27.0-34.0); MEAN CORPUSCULAR HGB CONC 31.7 % (32.0-36.0); MEAN PLATELET VOLUME 9.8 FL (7.0-11.0); MONO % 16.7 % (0.0-8.0); MONOCYTE # 2.1 TH/MM3 (0-0.9); NEUT % 75.6 % (16.0-70.0); PLATELET COUNT 206 TH/MM3 (150-450); RED BLOOD COUNT 2.77 MIL/MM3 (4.50-5.90); RED CELL DISTRIBUTION WIDTH 17.6 % (11.6-17.2); WHITE BLOOD COUNT 12.7 TH/MM3 (4.0-11.0)
[2017-12-09 05:43] LABS: BICARBONATE 32.5 MEQ/L (21.0-32.0); CALCIUM 9.5 MG/DL (8.5-10.1); CREATININE 4.75 MG/DL (0.60-1.30)
[2017-12-09] MEDS: LEVOTHYROXINE SODIUM 200 MCG TAB PO SCH (06:37)
[2017-12-09] MEDS: MIDODRINE 5 MG TAB PO SCH ×3 (06:37→22:07)
[2017-12-09] MEDS: PIPERACIL-TAZO 2.25 GM PREMIX 50 ML IV SCH ×3 (06:38→22:07)
[2017-12-09] MEDS: DOCUSATE SODIUM 50 MG/SENNA 8.6 MG TAB PO SCH ×2 (08:20→21:34)
[2017-12-09] MEDS: THYROID 60 MG TAB PO SCH ×2 (08:20→21:34)
[2017-12-09] MEDS: PANTOPRAZOLE SOD 40 MG DELAYED RELEASE TAB PO SCH (08:20)
[2017-12-09] MEDS: SODIUM CHLORIDE 0.9% FLUSH 10 ML FLUSH IV FLUSH SCH ×2 (08:20→21:34)
[2017-12-09] MEDS: DEXAMETHASONE SOD PHOS 4 MG/ML VIAL IV PUSH SCH (08:20)
[2017-12-09] MEDS: HEPARIN SODIUM - SQ 10,000 UNITS/ML VIAL SQ SCH ×2 (08:20→21:34)
[2017-12-09] MEDS: CLOPIDOGREL 75 MG TAB PO SCH (08:21)
[2017-12-09] MEDS: BACITRACIN TOP OINT 15 GM TUBE TOPICAL SCH ×2 (08:21→21:35)
[2017-12-09] MEDS: ASPIRIN EC 81 MG TABEC PO SCH (08:21)
[2017-12-09] MEDS: CALCIUM ACETATE 667 MG CAP PO SCH ×3 (08:21→17:32)
[2017-12-09] MEDS: NYSTATIN 100,000 UNIT/GM CREAM 15 GM TOPICAL SCH ×2 (08:22→21:35)
--- NOTE | 2017-12-09 11:32 | HHI.NPPN ---
Subjective History of Present Illness Patient is a 67-year-old male with a history of end-stage renal disease on hemodialysis Sunday/Sunday/ Sunday, diabetes, CAD, CHF, hypertension was transferred from [facility] to be evaluated by vascular surgery. Patient states he was admitted to [facility] because he had low blood pressure readings at home. AV fistula has not been functioning or used for 6- 8 weeks and they have been using a permacath for dialysis. Permacath has been removed secondary to possible infection and vas cath has been placed. He has been treated with cefepime IV. Last dialysis was Sunday and 1.5 L removed. Patient has a necrotic left middle finger that patient states has been going on for the last 12 weeks. Additional Remarks Tired today, some ongoing confusion Review of Systems Genitourinary Remarks Objective Data Data Vital Signs Date Time Temp Pulse Resp B/P (MAP) Pulse Ox O2 Delivery O2 Flow Rate FiO2 12/09/17 10:00 80 22 148/67 (94) 96 12/09/17 09:01 93 35 147/69 (95) 100 12/09/17 08:01 97.9 93 25 148/67 (94) 100 12/09/17 07:19 100 Nasal Cannula 2.00 12/09/17 06:00 85 12/09/17 04:00 98.4 94 24 147/68 (94) 100 12/09/17 04:00 94 12/09/17 02:00 73 12/09/17 00:00 98.2 74 24 144/64 (90) 100 12/09/17 00:00 74 12/08/17 22:00 93 12/08/17 20:00 90 12/08/17 20:00 98.3 90 26 147/65 (92) 100 12/08/17 19:14 97 Nasal Cannula 3.00 12/08/17 18:01 94 12/08/17 18:00 93 12/08/17 16:01 81 12/08/17 16:00 85 12/08/17 16:00 98.2 12/08/17 15:01 83 12/08/17 14:01 75 12/08/17 14:00 81 12/08/17 13:01 92 26 153/66 (95) 99 12/08/17 12:01 83 34 160/68 (98) 99 2/24/18 12:01 83 12/08/17 12:00 80 12/08/17 12:00 80 40 99 -: 12/09/17 0404 12/09/17 0404 Tubes & Lines: Perma-Cath Physical Exam General Appearance: No Acute Distress Eyes Eye Exam: Pupils Equal Throat Throat Exam: Oral Mucosa [place] & Moist Pulmonary Resp Exam: Breath Sounds Equal, No Distress, Rhonchi, Decreased Bases Cardiology CV Exam: Regular Gastrointestinal/Abdomen GI Exam: Soft, Non-Tender, Bowel Sounds Present Extremeties Extremities Exam: Moderate Edema (Left arm and hand swelling.) Neurologic Neuro Exam: Awake, Sedated Assessment/Plan Discussed Condition With: Spouse Assessment Summary: End Stage Renal Disease Problem List: (1) ESRD (end stage renal disease) on dialysis ICD Codes: N18.6 - End stage renal disease; Z99.2 - Dependence on renal dialysis Plan: Dialysis MWF s/p LUE AVF ligation for hand ischemia Antibiotics per ID ESBL noted in urine on isolation Epogen with dialysis Ongoing confusion- continue to monitor. Tolerated HD Sunday, plan next HD Sunday (2) Gangrene of finger of left hand ICD Codes: I96 - Gangrene, not elsewhere classified Plan: necrotic area on left hand middle finger (3) AV fistula occlusion ICD Codes: T82.898A - Other specified complication of vascular prosthetic devices, implants and grafts, initial encounter Plan: s/p L UE bypass 2/6 ligation of AVF and DRIL (4) Diabetes mellitus ICD Codes: E11.9 - Type 2 diabetes mellitus without complications Plan: Maintain BS between 140mg/dl to 180 mg/dl Taj Barr MD Dec 09, 2017 11:32
--- NOTE | 2017-12-09 15:38 | HHI.CCPN ---
Subjective Remarks/Hospital Course 67-year-old male, has been at [facility] for the last 15 days, transferred to [facility] for vascular evaluation. Patient has known end-stage renal disease and gets hemodialysis every Sunday and Sunday. He had a left upper extremity AV fistula, and it had some problem, so he underwent left upper extremity access revision, left upper extremity distal revascularization and interval ligation, last August 07, 2017. He was discharged, and apparently the fistula was working okay, and during that admission also he had that left middle finger dry gangrene which was felt to be ischemic in nature due to steal syndrome. As an outpatient, his fistula apparently stopped working, so he had a permacath placed in his right IJ. Patient stated that he's had problem on and off with low blood pressure for the last 4 months. The hypotension were getting worse and he ended up getting admitted at [facility] where he stayed for at least 15 days. During that admission, he had some positive blood culture done on November 05 that grew Enterobacter cloaca. Blood culture from November 07 were negative. His permacath was removed on November 07 and the culture of that was negative. Patient underwent L UE bypass brachial-brachial and ligation of the AV fistula. Is scheduled for permacath placement tomorrow morning and remains in the ICU sedated and intubated. 11/21: Afebrile .The patient remains intubated and sedated. Plan for permacath placement this a.m.. Will resume ventilator weaning postoperatively. 11/22: Attempted CPAP trials postoperatively yesterday, unsuccessful. Patient continues on phenylephrine currently a 60 mics/minute. Propofol discontinued Precedex infusion initiated CPAP trials are reinitiated this a.m. with plans for SBT later this morning and possible extubation. 11/23: Getting HD. Patient is awake, but very weak. On CPAP but requiring high pressure support 20. Had US guided paracentesis yesterday with 6L fluid removed- chylous. Remains on Precedex and remains on Shon-Synephrine at 60 mcg/min increased to 100 mcg/min 11/24: Remains intubated off all sedation. Requiring Shon-Synephrine at 80 mcg/ min to keep map above 65. HD with 2L removed. Left groin central line was removed and right groin hemodialysis catheter was removed yesterday 11/23/17. New right IJ central line placed yesterday 11/25: Extubated yesterday tolerating well respiratory harris. Remains on Shon- Synephrine to maintain map above 65. Cultures remain negative. Patient intermittently not cooperative with care. He is oriented 2 11/26: At around 2 AM today had episode of unresponsiveness, correlating with hypotension was hard to awake. Currently patient is awake but very lethargic voice is very soft but oriented to person and place. I will hold the Neurontin avoid all sedation currently on Shon-Synephrine at 30 mcg/min. completed hemodialysis today with 3L removed 11/27: Mentation and alertness seems to be slightly improved. TSH elevated at 8.8, increase Synthroid to 150 mcg per day. Patient is oriented to person and place. Remains very weak 11/28: Somnolent but wakes up easily, remains oriented to person. Chest x-ray unchanged. No evidence of new weakness. Discussed with Dr. Jansen 12/03 Reconsult: Patient was found unresponsive he was subsequently intubated and placed on mechanical ventilation. T:100.4 last night. 12/04: Remains encephalopathic, orally intubated on mechanical ventilation. 12/05: Remains encephalopathic, orally intubated on mechanical ventilation. On Levophed for pressor support. 12/06: Much more awake and alert. Orally intubated on mechanical ventilation. Started on Decadron yesterday and blood pressures have improved. 12/07 Patient s/p extubation yesterday. On 3L oxygen. Afebrile. For HD today. 12/08 On NC. Afebrile. Speech therapy evaluated and recommended pureed diet, thin liquid. RN states not much po intake. Subjective 12/09: Afebrile. Remains on nasal cannula. Intermittent lucency this afternoon spoke "normal conversation" with son at bedside. Currently unresponsive.. Very poor appetite. Objective Vital Signs Date Time Temp Pulse Resp B/P (MAP) Pulse Ox O2 Delivery O2 Flow Rate FiO2 12/09/17 10:00 80 22 148/67 (94) 96 12/09/17 08:01 97.9 12/09/17 07:19 Nasal Cannula 2.00 12/06/17 14:00 40 Intake and Output 12/09/17 12/09/17 12/10/17 08:00 16:00 00:00 Output Total 0 ml Balance 0 ml Result Diagram: 12/09/174 12/09/17 0404 Other Results Microbiology Date/Time Source Procedure Growth Status 12/03/17 15:00 Blood Peripheral Aerobic Blood Culture - Final NO GROWTH IN 5 DAYS Complete 12/03/17 15:00 Blood Peripheral Anaerobic Blood Culture - Final NO GROWTH IN 5 DAYS Complete 11/22/17 15:38 Fluid Peritoneal Fluid Gram Stain - Final Complete 11/22/17 15:38 Fluid Peritoneal Fluid Body Fluid Culture - Final NO GROWTH IN 72 HRS.--AEROBICALLY OR ... Complete 12/03/17 12:39 Sputum Endotracheal Gram Stain - Final Complete 12/03/17 12:39 Sputum Culture - Final Klebsiella Pneumoniae Esbl Pos Multi-Drug Resistant Complete 11/23/17 17:40 Catheter Tip Central Venous Line Fungal Culture - Final Complete Imaging Last Impressions Chest X-Ray 12/04/17 0000 Signed Impressions: Service Date/Time: Monday, December 04, 2017 11:09 - CONCLUSION: 1. Uncomplicated line placement. No evidence of pneumothorax. James Mike MD Head CT 11/30/17 0000 Signed Impressions: Service Date/Time: Thursday, November 30, 2017 22:05 - CONCLUSION: 1. No acute findings. No significant change. Uzair Berrios MD Abdomen X-Ray 11/29/17 0000 Signed Impressions: Service Date/Time: November 16:03 - CONCLUSION: NG tube tip extends into the duodenum Sami Burnett MD Cyst Biopsy Asp-Paracentesis US 11/22/17 0000 Signed Impressions: Service Date/Time: November 15:20 - CONCLUSION: Uncomplicated ultrasound guided paracentesis. 6 L of chylous appearing fluid was removed. Taj Oden MD Catheter Placement X-Ray 11/21/17 1554 Signed Impressions: Service Date/Time: Tuesday, November 21, 2017 11:42 - CONCLUSION: Uncomplicated PermaCath placement as above. James Mike MD Lower Extremity Ultrasound 11/13/17 0000 Signed Impressions: Service Date/Time: Monday, November 13, 2017 07:52 - CONCLUSION: No DVT seen in either leg. Jewel Kaiser MD Hand X-Ray 11/13/17 0000 Signed Impressions: Service Date/Time: Monday, November 13, 2017 10:18 - CONCLUSION: Osteoporosis. Extensive arterial calcifications. 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 No definite evidence of bony destruction or osteomyelitis Jared Upton MD Procedures 11/20 Sp LUE angiogram. 11/21 permacath placement Objective Remarks GENERAL: 67cyo chronically ill appearing male who is laying semirecumbent in [facility] bed. SKIN: Warm and dry. Non-stageable pressure injury ~2cm to bilateral MTP. HEAD: Normocephalic. EYES: Pupils 2mm reactive bilaterally. No scleral icterus. No injection or drainage. NECK: Supple, trachea midline. No JVD or lymphadenopathy. CARDIOVASCULAR: Paced. S1, S2 no S4. RESPIRATORY: Respirations are shallow with mild tachypnea, no accessory muscle use. No wheezes or rales. GASTROINTESTINAL: Abdomen soft, non-tender, nondistended. Bowel sounds present. : No urinary catheter in place. MUSCULOSKELETAL: 1+ pitting edema BUE L>R. Incision medial aspect of left upper arm and proximal forearm with priya c/d/i without drainage. Hands are warm with palpable radial pulses. Moves fingers but not cooperative with ctc operator strength. Necrosis of distal phalanx and proximal middle phalanx of third digit of left hand, necrotic wound on radial aspect of second digit left hand distal to PIP. NEURO: Awake, tracks. Does not speak in response to questions. Moves extremities spontaneously. Does not follow commands. A/P Assessment and Plan NEURO/PSYCH: Metabolic encephalopathy Peripheral neuropathy Use acetaminophen 650 mg by mouth every 6 hours when necessary fever/pain 1-3 oxycodone every 4 hours prn 4-10. - CT brain 11/26 and 11/30 negative - Not candidate for MRI brain due to pacer. Gabapentin 100 mg daily currently on hold. Resume when clinically indicated - Ammonia level 21 on 11/30 -B12 within normal limits - EEG 11/27 - mildly abnormal with mild encephalopathy -EEG 12/03: mod/severe encephalopathy, no ictal activity. Intermittent triphasic (which is c/w metabolic encephalopathy). No sz. Neurology has followed- Dr. Hayden -Suspected metabolic encephalopathy Resp: Acute respiratory failure, resolved - Extubated 11/24/17 Reintubated 12/03, extubated 12/06 Remains on NC maintain saturations greater than equal to 90%. Mental status marginal and he is weak. Is DNR/DNI. Dysfunction while awake Albuterol/ipratropium aerosols every 6 hours with albuterol aerosols every 2 hours. As needed Dyspnea Follow chest x-ray in a.m. 12/10 CVS: Hypotension Bilateral upper extremity ischemia -s/p L UE brachial-brachial bypass and access ligation 11/20/17 Dr. Jansen - Continue aspirin 162 milligrams daily, clopidogrel bisulfate 75 mg daily. Noted on aspirin 81 mg daily at home - Midodrine 10 mg every 8 hours - cortisol level 16.2 . Previously on dexamethasone 4 mg IV daily to cover for adrenal insufficiency on 12/05. Hypotension responded to therapy, suspected relative adrenal insufficiency. Now hypertension, will taper dexamethasone to 2 mg IV daily. Eventually will be transitioned to hydrocortisone and fludrocortisone po with or without cosyntropin stress. Holding carvedilol 3.125 mg by mouth twice a day/home medication Holding bumetanide 2 mg daily/home medication Echocardiogram 11/14/17 - The left ventricular systolic function is normal with an estimated ejection fraction in the range of 55-60%. Wall thickness is measured at the upper limits of normal. Normal left ventricular size. The left atrial size is mildly dilated. Mild thickening of the mitral valve leaflets. Trace mitral valve regurgitation. Moderate mitral annular calcification. GI: Chronic moderate protein energy malnutrition. Dysphagia -Speech therapy evaluated and recommended pureed diet and no liquid restrictions. Doubt he will meet nutritional needs orally. Will likely need Dobhoff tube with supplemental feeds if that is in keeping with goals of care. Family to discuss with son by Sunday - Large-volume ascites removed 11/22/17 - On pantoprazole 40 mg for GI prophylaxis medication -metoclopramide 5mg IV Q8hrly for GI motility on 12/05, d/c'd 12/07. - Docusate sodium/senna 1 tablet twice a day for bowel regimen Renal/FEN/ : End-stage renal disease - Hemodialysis per nephrology Sunday/Sunday - R PermCath placement 11/21 by IR. -Monitor renal function, avoid nephrotoxins Seen calcium acetate 6670 g 3 times a day/home medication ID: Septic thrombophlebitis resolved Enterobacter bacteremia, BC 11/05 (+), ?source - permacath C/S negative (?due to previous Abx) - concern with infected thrombus LUE AVF HCAP 12/03 Sputum cx: Kleb pneumonia ESBL Septic shock, resolved Antibiotics per ID, Dr. Martinez: [place] 12/03 #7. Plan for minimum 7 day course. Discontinue gentamicin 0.3% drops every 4 hours. 11/29 through 12/09 Pertinent cultures: 12/03 - blood cultures 2 - no growth 12/03/18 sputum - Klebsiella ESBL 11/24 - cultures 2 - no growth2 11/23 - catheter tip - no growth 11/22 - peritoneal fluid - no growth 11/15 - blood cultures 2 - no growth 11/13 - blood cultures 2 - no growth Heme: Leukocytosis Anemia of chronic kidney disease/normocytic Monitor CBC, on Epogen with thousand units with HD Endo : Diabetes mellitus Hypothyroidism ?relative adrenal insufficinecy -SSI (Novulog medium scale) with bedside glucose every before meals/at bedtime On Novulin 70/30 12 units twice a day with sliding scale at home -Discontinue Synthroid 200mcg daily and continue, [place] Synthroid 60mg BID, TSH 9.7 on 11/30 free T4 1.06. Free T3 1.57. Will need to adjust [place] Thyroid outpatient Dexamethasone 2 mg IV daily as per above. DVT GI prophylaxis SCDs and Subcutaneous heparin 5000 q12 Pantoprazole 40 mg by mouth daily Lines: peripheral IV's. R Permacath 11/21/17 Dr. Mike DNR/DNI. Palliative care following. Patient is currently not capacitated for medical decision-making. Son, Derrick, is his healthcare surrogate [phone]. Per palliative care documentation, hospice has been discussed and family has been receptive to hospice if there is additional decline. Level 2 followup Tutu Vegas MD Dec 09, 2017 15:38
[2017-12-09] MEDS ORDERED: ACETAMINOPHEN 650 MG/20.3 ML UDC PO PRN (15:45)
[2017-12-10] VITALS (41 sets, daily range): BP systolic 138–177; BP diastolic 60–74; PULSE 69–96; RESP 21–42; TEMP 97.9–98.3; O2SAT 82–100
[2017-12-10] MEDS: RESP: ALBUTEROL 2.5 MG/IPRATROPIUM 0.5 MG NEB (SCH) NEB ×4 (03:26→19:36)
[2017-12-10 04:42] LABS: AUTOMATED NEUTROPHIL # 11.6 TH/MM3 (1.8-7.7); BASOPHIL % 0.2 % (0.0-2.0); EOSINOPHIL # 0.1 TH/MM3 (0-0.4); EOSINOPHIL % 0.4 % (0.0-4.0); HEMATOCRIT 28.3 % (39.0-51.0); HEMOGLOBIN 8.8 GM/DL (13.0-17.0); LYMPH % 5.3 % (9.0-44.0); LYMPHOCYTE # 0.8 TH/MM3 (1.0-4.8); MEAN CELL VOLUME 94.6 FL (80.0-100.0); MEAN CORPUSCULAR HEMOGLOBIN 29.5 PG (27.0-34.0); MEAN CORPUSCULAR HGB CONC 31.1 % (32.0-36.0); MEAN PLATELET VOLUME 10.2 FL (7.0-11.0); MONO % 15.5 % (0.0-8.0); MONOCYTE # 2.3 TH/MM3 (0-0.9); NEUT % 78.6 % (16.0-70.0); PLATELET COUNT 236 TH/MM3 (150-450); RED BLOOD COUNT 2.99 MIL/MM3 (4.50-5.90); RED CELL DISTRIBUTION WIDTH 17.4 % (11.6-17.2); WHITE BLOOD COUNT 14.8 TH/MM3 (4.0-11.0)
[2017-12-10 05:05] LABS: BICARBONATE 29.1 MEQ/L (21.0-32.0); CALCIUM 9.2 MG/DL (8.5-10.1); CREATININE 5.54 MG/DL (0.60-1.30); MAGNESIUM 2.5 MG/DL (1.5-2.5); PHOSPHORUS 2.6 MG/DL (2.5-4.9)
[2017-12-10] MEDS: MIDODRINE 5 MG TAB PO SCH ×3 (06:55→21:05)
[2017-12-10] MEDS: PIPERACIL-TAZO 2.25 GM PREMIX 50 ML IV SCH ×3 (06:56→21:05)
--- NOTE | 2017-12-10 07:25 | PD.VS.PN ---
Subjective Procedure(s): L brachial-brachial bypass, ligation of AVF Subjective/Hospital Course more somnolent today looks at me with vocal stimulation but no interaction Objective Vitals/I&O Date Time Temp Pulse Resp B/P (MAP) Pulse Ox O2 Delivery O2 Flow Rate FiO2 12/10/17 06:00 69 12/10/17 04:00 80 12/10/17 04:00 98.0 80 27 165/60 (95) 95 12/10/17 02:00 70 12/10/17 00:00 98.1 70 21 149/65 (93) 99 12/10/17 00:00 70 12/09/17 22:00 86 12/09/17 20:49 99 Nasal Cannula 2.00 12/09/17 20:00 98.2 70 35 170/73 (105) 99 12/09/17 20:00 70 12/09/17 16:01 98.0 71 26 146/67 (93) 98 12/09/17 15:01 77 24 147/63 (91) 96 12/09/17 14:01 72 45 155/67 (96) 99 12/09/17 13:01 71 26 155/67 (96) 99 12/09/17 12:01 97.8 69 20 168/72 (104) 98 12/09/17 11:01 69 18 149/68 (95) 100 12/09/17 10:00 80 22 148/67 (94) 96 12/09/17 09:01 93 35 147/69 (95) 100 12/09/17 08:01 97.9 93 25 148/67 (94) 100 12/10/17 12/10/17 12/10/17 07:00 15:00 23:00 Output Total 0 ml Balance 0 ml Exam: L UE mildly edematous hand warm incision ok stable tissue loss Laboratory Laboratory Tests Test 12/10/17 03:30 White Blood Count 14.8 Red Blood Count 2.99 Hemoglobin 8.8 Hematocrit 28.3 Mean Corpuscular Volume 94.6 Mean Corpuscular Hemoglobin 29.5 Mean Corpuscular Hemoglobin Concent 31.1 Red Cell Distribution Width 17.4 Platelet Count 236 Mean Platelet Volume 10.2 Neutrophils (%) (Auto) 78.6 Lymphocytes (%) (Auto) 5.3 Monocytes (%) (Auto) 15.5 Eosinophils (%) (Auto) 0.4 Basophils (%) (Auto) 0.2 Neutrophils # (Auto) 11.6 Lymphocytes # (Auto) 0.8 Monocytes # (Auto) 2.3 Eosinophils # (Auto) 0.1 Basophils # (Auto) 0.0 CBC Comment AUTO DIFF Blood Urea Nitrogen 48 Creatinine 5.54 Random Glucose 132 Calcium Level 9.2 Phosphorus Level 2.6 Magnesium Level 2.5 Sodium Level 141 Potassium Level 4.0 Chloride Level 100 Carbon Dioxide Level 29.1 Anion Gap 12 Estimat Glomerular Filtration Rate 10 Date/Time Source Procedure Growth Status 12/03/17 15:00 Blood Peripheral Aerobic Blood Culture - Final NO GROWTH IN 5 DAYS Complete 12/03/17 15:00 Blood Peripheral Anaerobic Blood Culture - Final NO GROWTH IN 5 DAYS Complete 11/22/17 15:38 Fluid Peritoneal Fluid Gram Stain - Final Complete 11/22/17 15:38 Fluid Peritoneal Fluid Body Fluid Culture - Final NO GROWTH IN 72 HRS.--AEROBICALLY OR ... Complete 12/03/17 12:39 Sputum Endotracheal Gram Stain - Final Complete 12/03/17 12:39 Sputum Culture - Final Klebsiella Pneumoniae Esbl Pos Multi-Drug Resistant Complete 11/23/17 17:40 Catheter Tip Central Venous Line Fungal Culture - Final Complete Assessment and Plan Plan S/p L UE bypass, access ligation UE warm and bypass patent by exam Plan 1. encourage nutrition 2. PT/OT 3. W/u of fluctuating mental status per primary team Discharge Planning Anytime from a vascular surgery standpoint but clearly many other issues (ID, mental status, cardiac, renal) Issa Jansen MD Dec 10, 2017 07:25
[2017-12-10] MEDS: INSULIN ASPART SUPPLEMENTAL SCALE SQ SCH ×4 (08:00→21:06)
[2017-12-10] MEDS: DOCUSATE SODIUM 50 MG/SENNA 8.6 MG TAB PO SCH ×2 (08:18→21:00)
[2017-12-10] MEDS: PANTOPRAZOLE SOD 40 MG DELAYED RELEASE TAB PO SCH (08:18)
[2017-12-10] MEDS: THYROID 60 MG TAB PO SCH ×2 (08:18→21:05)
[2017-12-10] MEDS: SODIUM CHLORIDE 0.9% FLUSH 10 ML FLUSH IV FLUSH SCH ×2 (08:18→21:07)
[2017-12-10] MEDS: BACITRACIN TOP OINT 15 GM TUBE TOPICAL SCH ×2 (08:19→21:08)
[2017-12-10] MEDS: HEPARIN SODIUM - SQ 10,000 UNITS/ML VIAL SQ SCH ×2 (08:19→21:06)
[2017-12-10] MEDS: CALCIUM ACETATE 667 MG CAP PO SCH ×3 (08:19→18:42)
[2017-12-10] MEDS: ASPIRIN EC 81 MG TABEC PO SCH (08:19)
[2017-12-10] MEDS: CLOPIDOGREL 75 MG TAB PO SCH (08:19)
[2017-12-10] MEDS: NYSTATIN 100,000 UNIT/GM CREAM 15 GM TOPICAL SCH ×2 (08:20→21:08)
[2017-12-10] MEDS: DEXAMETHASONE SOD PHOS 4 MG/ML VIAL IV PUSH SCH (08:25)
[2017-12-10 08:31] LABS: KERATOCYTES OCC (NORMAL); OVALOCYTES 1+ (NORMAL)
--- NOTE | 2017-12-10 08:50 | HHI.CCPN ---
Subjective Remarks/Hospital Course 67-year-old male, has been at [facility] for the last 15 days, transferred to [facility] for vascular evaluation. Patient has known end-stage renal disease and gets hemodialysis every Sunday and Sunday. He had a left upper extremity AV fistula, and it had some problem, so he underwent left upper extremity access revision, left upper extremity distal revascularization and interval ligation, last August 07, 2017. He was discharged, and apparently the fistula was working okay, and during that admission also he had that left middle finger dry gangrene which was felt to be ischemic in nature due to steal syndrome. As an outpatient, his fistula apparently stopped working, so he had a permacath placed in his right IJ. Patient stated that he's had problem on and off with low blood pressure for the last 4 months. The hypotension were getting worse and he ended up getting admitted at [facility] where he stayed for at least 15 days. During that admission, he had some positive blood culture done on November 05 that grew Enterobacter cloaca. Blood culture from November 07 were negative. His permacath was removed on November 07 and the culture of that was negative. Patient underwent L UE bypass brachial-brachial and ligation of the AV fistula. Is scheduled for permacath placement tomorrow morning and remains in the ICU sedated and intubated. 11/21: Afebrile .The patient remains intubated and sedated. Plan for permacath placement this a.m.. Will resume ventilator weaning postoperatively. 11/22: Attempted CPAP trials postoperatively yesterday, unsuccessful. Patient continues on phenylephrine currently a 60 mics/minute. Propofol discontinued Precedex infusion initiated CPAP trials are reinitiated this a.m. with plans for SBT later this morning and possible extubation. 11/23: Getting HD. Patient is awake, but very weak. On CPAP but requiring high pressure support 20. Had US guided paracentesis yesterday with 6L fluid removed- chylous. Remains on Precedex and remains on Shon-Synephrine at 60 mcg/min increased to 100 mcg/min 11/24: Remains intubated off all sedation. Requiring Shon-Synephrine at 80 mcg/ min to keep map above 65. HD with 2L removed. Left groin central line was removed and right groin hemodialysis catheter was removed yesterday 11/23/17. New right IJ central line placed yesterday 11/25: Extubated yesterday tolerating well respiratory harris. Remains on Shon- Synephrine to maintain map above 65. Cultures remain negative. Patient intermittently not cooperative with care. He is oriented 2 11/26: At around 2 AM today had episode of unresponsiveness, correlating with hypotension was hard to awake. Currently patient is awake but very lethargic voice is very soft but oriented to person and place. I will hold the Neurontin avoid all sedation currently on Shon-Synephrine at 30 mcg/min. completed hemodialysis today with 3L removed 11/27: Mentation and alertness seems to be slightly improved. TSH elevated at 8.8, increase Synthroid to 150 mcg per day. Patient is oriented to person and place. Remains very weak 11/28: Somnolent but wakes up easily, remains oriented to person. Chest x-ray unchanged. No evidence of new weakness. Discussed with Dr. Jansen 12/03 Reconsult: Patient was found unresponsive he was subsequently intubated and placed on mechanical ventilation. T:100.4 last night. 12/04: Remains encephalopathic, orally intubated on mechanical ventilation. 12/05: Remains encephalopathic, orally intubated on mechanical ventilation. On Levophed for pressor support. 12/06: Much more awake and alert. Orally intubated on mechanical ventilation. Started on Decadron yesterday and blood pressures have improved. 12/07 Patient s/p extubation yesterday. On 3L oxygen. Afebrile. For HD today. 12/08 On NC. Afebrile. Speech therapy evaluated and recommended pureed diet, thin liquid. RN states not much po intake. Subjective 12/09: Afebrile. Remains on nasal cannula. Intermittent lucency this afternoon spoke "normal conversation" with son at bedside. Currently unresponsive.. Very poor appetite. 12/10 No events overnight. For HD today. Afebrile. Objective Vital Signs Date Time Temp Pulse Resp B/P (MAP) Pulse Ox O2 Delivery O2 Flow Rate FiO2 12/10/17 06:00 69 12/10/17 04:00 98.0 27 165/60 (95) 95 12/09/17 20:49 Nasal Cannula 2.00 12/06/17 14:00 40 Intake and Output 12/10/17 12/10/17 12/11/17 08:00 16:00 00:00 Output Total 0 ml Balance 0 ml Result Diagram: 12/10/1732912/10/17329 Other Results Laboratory Tests Test 12/10/17 03:30 White Blood Count 14.8 TH/MM3 Red Blood Count 2.99 MIL/MM3 Hemoglobin 8.8 GM/DL Hematocrit 28.3 % Mean Corpuscular Volume 94.6 FL Mean Corpuscular Hemoglobin 29.5 PG Mean Corpuscular Hemoglobin Concent 31.1 % Red Cell Distribution Width 17.4 % Platelet Count 236 TH/MM3 Mean Platelet Volume 10.2 FL Neutrophils (%) (Auto) 78.6 % Lymphocytes (%) (Auto) 5.3 % Monocytes (%) (Auto) 15.5 % Eosinophils (%) (Auto) 0.4 % Basophils (%) (Auto) 0.2 % Neutrophils # (Auto) 11.6 TH/MM3 Lymphocytes # (Auto) 0.8 TH/MM3 Monocytes # (Auto) 2.3 TH/MM3 Eosinophils # (Auto) 0.1 TH/MM3 Basophils # (Auto) 0.0 TH/MM3 CBC Comment AUTO DIFF Differential Comment AUTO DIFF CONFIRMED Platelet Estimate NORMAL Platelet Morphology Comment ENLARGED Basophilic Stippling FAINT Ovalocytes 1+ Keratocytes OCC Blood Urea Nitrogen 48 MG/DL Creatinine 5.54 MG/DL Random Glucose 132 MG/DL Calcium Level 9.2 MG/DL Phosphorus Level 2.6 MG/DL Magnesium Level 2.5 MG/DL Sodium Level 141 MEQ/L Potassium Level 4.0 MEQ/L Chloride Level 100 MEQ/L Carbon Dioxide Level 29.1 MEQ/L Anion Gap 12 MEQ/L Estimat Glomerular Filtration Rate 10 ML/MIN Imaging Last Impressions Chest X-Ray 12/04/17 0000 Signed Impressions: Service Date/Time: Monday, December 04, 2017 11:09 - CONCLUSION: 1. Uncomplicated line placement. No evidence of pneumothorax. James Mike MD Head CT 11/30/17 0000 Signed Impressions: Service Date/Time: Thursday, November 30, 2017 22:05 - CONCLUSION: 1. No acute findings. No significant change. Uzair Berrios MD Abdomen X-Ray 11/29/17 0000 Signed Impressions: Service Date/Time: November 16:03 - CONCLUSION: NG tube tip extends into the duodenum Sami Burnett MD Cyst Biopsy Asp-Paracentesis US 11/22/17 0000 Signed Impressions: Service Date/Time: November 15:20 - CONCLUSION: Uncomplicated ultrasound guided paracentesis. 6 L of chylous appearing fluid was removed. Taj Oden MD Catheter Placement X-Ray 11/21/17 [id number] Signed Impressions: Service Date/Time: Tuesday, November 21, 2017 11:42 - CONCLUSION: Uncomplicated PermaCath placement as above. James Mike MD Lower Extremity Ultrasound 11/13/17 0000 Signed Impressions: Service Date/Time: Monday, November 13, 2017 07:52 - CONCLUSION: No DVT seen in either leg. Jewel Kaiser MD Hand X-Ray 11/13/17 0000 Signed Impressions: Service Date/Time: Monday, November 13, 2017 10:18 - CONCLUSION: Osteoporosis. Extensive arterial calcifications. 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 No definite evidence of bony destruction or osteomyelitis Jared Upton MD Procedures 11/20 Sp LUE angiogram. 11/21 permacath placement Objective Remarks GENERAL: 67cyo chronically ill appearing male who is laying semirecumbent in [facility] bed. SKIN: Warm and dry. Non-stageable pressure injury ~2cm to bilateral MTP. HEAD: Normocephalic. EYES: Pupils 2mm reactive bilaterally. No scleral icterus. No injection or drainage. NECK: Supple, trachea midline. No JVD or lymphadenopathy. CARDIOVASCULAR: Paced. S1, S2 no S4. RESPIRATORY: Respirations are shallow with mild tachypnea, no accessory muscle use. No wheezes or rales. GASTROINTESTINAL: Abdomen soft, non-tender, nondistended. Bowel sounds present. : No urinary catheter in place. MUSCULOSKELETAL: 1+ pitting edema BUE L>R. Incision medial aspect of left upper arm and proximal forearm with priya c/d/i without drainage. Hands are warm with palpable radial pulses. Moves fingers but not cooperative with special needs tutor strength. Necrosis of distal phalanx and proximal middle phalanx of third digit of left hand, necrotic wound on radial aspect of second digit left hand distal to PIP. NEURO: Awake, tracks. Does not speak in response to questions. Moves extremities spontaneously. Does not follow commands. A/P Assessment and Plan NEURO/PSYCH: Metabolic encephalopathy Peripheral neuropathy Use acetaminophen 650 mg by mouth every 6 hours when necessary fever/pain 1-3 oxycodone every 4 hours prn 4-10. - CT brain 11/26 and 11/30 negative - Not candidate for MRI brain due to pacer. Gabapentin 100 mg daily currently on hold. Resume when clinically indicated - Ammonia level 21 on 11/30 -B12 within normal limits - EEG 11/27 - mildly abnormal with mild encephalopathy -EEG 12/03: mod/severe encephalopathy, no ictal activity. Intermittent triphasic (which is c/w metabolic encephalopathy). No sz. Neurology has followed- Dr. Hayden -Suspected metabolic encephalopathy For repeat EEG today Resp: Acute respiratory failure, resolved - Extubated 11/24/17 Reintubated 12/03, extubated 12/06 Remains on NC maintain saturations greater than equal to 90%. Albuterol/ipratropium aerosols every 6 hours with albuterol aerosols every 2 hours. As needed Dyspnea CVS: Hypotension Bilateral upper extremity ischemia -s/p L UE brachial-brachial bypass and access ligation 11/20/17 Dr. Jansen - Continue aspirin 162 milligrams daily, clopidogrel bisulfate 75 mg daily. Noted on aspirin 81 mg daily at home - Midodrine 10 mg every 8 hours - cortisol level 16.2 . Previously on dexamethasone 4 mg IV daily to cover for adrenal insufficiency on 12/05. Hypotension responded to therapy, suspected relative adrenal insufficiency. Now hypertension, now on dexamethasone to 2 mg IV daily. Eventually will be transitioned to hydrocortisone and fludrocortisone po with or without cosyntropin stress. Echocardiogram 11/14/17 - The left ventricular systolic function is normal with an estimated ejection fraction in the range of 55-60%. Wall thickness is measured at the upper limits of normal. Normal left ventricular size. The left atrial size is mildly dilated. Mild thickening of the mitral valve leaflets. Trace mitral valve regurgitation. Moderate mitral annular calcification. GI: Chronic moderate protein energy malnutrition. Dysphagia -On PO diet per speech - Large-volume ascites removed 11/22/17 - On pantoprazole 40 mg for GI prophylaxis medication -metoclopramide 5mg IV Q8hrly for GI motility on 12/05, d/c'd 12/07. - Docusate sodium/senna 1 tablet twice a day for bowel regimen Renal/FEN/ : End-stage renal disease - Hemodialysis per nephrology Sunday/Sunday. For HD today - R PermCath placement 11/21 by IR. -Monitor renal function, avoid nephrotoxins Seen calcium acetate 6670 g 3 times a day/home medication ID: Septic thrombophlebitis resolved Enterobacter bacteremia, BC 11/05 (+), ?source - permacath C/S negative (?due to previous Abx) - concern with infected thrombus LUE AVF HCAP 12/03 Sputum cx: Kleb pneumonia ESBL Septic shock, resolved Antibiotics per ID, Dr. Martinez: Akosua 12/03 #7. Plan for minimum 7 day course. Pertinent cultures: 12/03 - blood cultures 2 - no growth 12/03/18 sputum - Klebsiella ESBL 11/24 - cultures 2 - no growth2 11/23 - catheter tip - no growth 11/22 - peritoneal fluid - no growth 11/15 - blood cultures 2 - no growth 11/13 - blood cultures 2 - no growth Heme: Leukocytosis Anemia of chronic kidney disease/normocytic Monitor CBC, on Epogen with HD Endo : Diabetes mellitus Hypothyroidism ?relative adrenal insufficinecy -SSI (Novulog medium scale) with bedside glucose every before meals/at bedtime On Novulin 70/30 12 units twice a day with sliding scale at home On Valentine Synthroid 60mg BID, TSH 9.7 on 11/30 free T4 1.06. Free T3 1.57. Dexamethasone 2 mg IV daily as per above. DVT GI prophylaxis SCDs and Subcutaneous heparin 5000 q12 Pantoprazole 40 mg by mouth daily Lines: peripheral IV's. R Permacath 11/21/17 Dr. Mike DNR/DNI. Palliative care following. Patient is currently not capacitated for medical decision-making. Son, Derrick, is his healthcare surrogate [phone]. Per palliative care documentation, hospice has been discussed and family has been receptive to hospice if there is additional decline. Will sign off and transfer care to [facility] Level 2 followup Fabiola Taylor MD Dec 10, 2017 08:50
--- NOTE | 2017-12-10 09:18 | HHI.IDPN ---
Subjective Subjective Remarks Patient is a 67-year-old male, has been at [facility] for the last 15 days, transferred to [facility] for vascular evaluation. Patient has known end-stage renal disease and gets hemodialysis every Sunday and Sunday. He had a left upper extremity AV fistula, and it had some problem, so he underwent left upper extremity access revision, left upper extremity distal revascularization and interval ligation, last August 07, 2017. He was discharged, and apparently the fistula was working okay, and during that admission also he had that left middle finger dry gangrene which was felt to be ischemic in nature due to steal syndrome. As an outpatient, his fistula apparently stopped working, so he had a permacath placed in his right IJ. Patient stated that he's had problem on and off with low blood pressure for the last 4 months. The hypotension were getting worse and he ended up getting admitted at [facility] where he stayed for at least 15 days. During that admission, he had some positive blood culture done on November 05 that grew Enterobacter cloaca. Blood culture from November 07 were negative. His permacath was removed on November 07 and the culture of that was negative. Patient was apparently getting IV cefepime, and there was an infectious disease specialist monitoring him for his infection. Patient stated that he's had some reaction to the cefepime and he describes it as burning sensation. Patient is currently afebrile. There was evaluation of his AV fistula which shows thrombosis of his DRIL. He has now been transferred to [facility] for vascular evaluation. Infectious disease consultation has been requested to evaluate for sepsis. Notes reviewed D/W RN On nasal O2 Temps ok BP ok Awake, slow to respond Confused For HD today Nothing new on C/S Last CXR 12/04 stable BP ok Swallowing better - to be upgraded to mechanical soft diet Antibiotics Current Medications Zosyn Medications (Trade) Dose Ordered Sig/Renny Route Start Time Stop Time Status Last Admin (NS Flush) 2 ml BID IV FLUSH 11/12/17 21:00 12/10/17 08:18 (Zofran Inj) 4 mg Q6H PRN IVP 11/12/17 20:00 (Narcan Inj) 0.4 mg UNSCH PRN IV PUSH 11/12/17 20:00 (D50w (Vial) Inj) 50 ml UNSCH PRN IV PUSH 11/12/17 23:30 (Glucagon Inj) 1 mg UNSCH PRN OTHER 11/12/17 23:30 (Phoslo) 667 mg TID PO 11/13/17 09:00 12/10/17 08:19 (Ecotrin Ec) 162 mg DAILY PO 11/13/17 09:00 12/10/17 08:19 (Plavix) 75 mg DAILY PO 11/13/17 09:00 Future hold 12/10/17 08:19 (Baciguent Oint) 1 applic Q12HR TOPICAL 11/13/17 21:00 12/10/17 08:19 Sodium Chloride 1,000 ml @ 0 mls/hr Q0M PRN OTHER 11/13/17 14:09 12/03/17 18:45 (Heparin Inj) 8,000 units UNSCH PRN IV FLUSH 11/13/17 14:15 11/15/17 15:23 Sodium Chloride 1,000 ml @ 200 mls/hr Q5H PRN IV 11/13/17 14:09 11/26/17 07:15 Sodium Chloride 1,000 ml @ 0 mls/hr Q0M PRN OTHER 11/13/17 14:09 (Mannitol Inj) 12.5 gm UNSCH PRN IV 11/13/17 14:15 11/17/17 11:53 Albumin Human 100 ml @ 60 mls/hr UNSCH PRN IV 11/13/17 14:15 12/03/17 18:46 (NS Flush) 5 ml UNSCH PRN IV FLUSH 11/13/17 14:15 12/03/17 18:46 (Heparin Inj) UNSCH PRN .XX 11/13/17 14:15 12/07/17 13:52 (Gentamicin Inj) 20 mg UNSCH PRN OTHER 11/13/17 14:15 12/07/17 13:54 (Zofran Inj) 4 mg UNSCH PRN IV PUSH 11/13/17 14:15 (Tylenol) 650 mg UNSCH PRN PO 11/13/17 14:15 11/18/17 08:40 (Benadryl) 25 mg UNSCH PRN PO 11/13/17 14:15 (Nitrostat Sl) 0.4 mg UNSCH PRN SL 11/13/17 14:15 (Catapres) 0.1 mg UNSCH PRN PO 11/13/17 14:15 (Epogen Inj) 4,000 units UNSCH PRN IV PUSH 11/13/17 14:15 12/07/17 13:53 (Gelfoam 12 Mm/7 Mm Top) 1 foam UNSCH PRN TOP 11/13/17 14:15 (Coreg) 3.125 mg BID PO 11/16/17 21:00 Future Hold 11/22/17 08:37 (Neurontin) 100 mg TID PO 11/20/17 18:00 Future Hold 11/25/17 18:34 ([place] Thyroid) 60 mg BID PO 11/20/17 21:00 12/10/17 08:18 (Roxicodone) 5 mg Q4H PRN PO 11/20/17 15:15 (Marleny-Colace) 1 tab BID PO 11/20/17 21:00 12/10/17 08:18 (Milk Of Magnesia Liq) 30 ml Q12H PRN PO 11/20/17 15:15 (Senokot) 17.2 mg Q12H PRN PO 11/20/17 15:15 12/05/17 09:54 (Dulcolax Supp) 10 mg DAILY PRN RECTAL 11/20/17 15:15 (Lactulose Liq) 30 ml DAILY PRN PO 11/20/17 15:15 (NS Flush) 5 ml UNSCH PRN IV FLUSH 11/20/17 17:45 (Heparin Inj) 2,000 units UNSCH PRN IV FLUSH 11/20/17 17:45 (Mycostatin Cream) 1 applic Q12HR TOPICAL 11/24/17 14:00 12/10/17 08:20 (Heparin Inj) 5,000 units Q12HR SQ 11/26/17 21:00 12/10/17 08:19 (Proamatine) 10 mg Q8HR PO 11/30/17 00:00 12/10/17 06:55 Piperacillin Sod/ Tazobactam Sod 50 ml @ 100 mls/hr Q8H IV 12/03/17 14:00 12/13/17 23:00 12/10/17 06:56 (Brethine Inj) 1 mg UNSCH PRN SQ 12/04/17 09:15 (Duoneb Neb) 1 ampule Q6HR NEB NEB 12/08/17 22:00 12/10/17 03:26 (Albuterol Neb) 2.5 mg Q2HR NEB PRN NEB 12/08/17 20:30 (Decadron Inj) 2 mg DAILY IV PUSH 12/09/17 09:00 12/10/17 08:25 (Protonix) 40 mg DAILY PO 12/09/17 09:00 12/10/17 08:18 (NovoLOG SUPPLEMENTAL SCALE) 1 ACHS SQ 12/09/17 17:00 12/09/17 21:35 (Tylenol 650 Mg/ 20 ml Liq) 650 mg Q6H PRN PO 12/09/17 15:45 Lines Permacath site ok. Past Medical History ESRD DM CAD HF. HTN Enlarged liver, and ascites Past Surgical History Pacemaker CABGx4 with mitral valvuloplasty in february 2005 Right fifth toe amputation Right shoulder rotator cuff repair Has had repeated paracentesis to drain his ascites Allergies: Coded Allergies: adhesive (Unverified Adverse Reaction, Severe, SKIN BREAKDOWN/ULCERS, ) Uncoded Allergies: MSG (Allergy, Intermediate, bowel problems, 08/02/17) Objective . Vital Signs Date Time Temp Pulse Resp B/P (MAP) Pulse Ox O2 Delivery O2 Flow Rate FiO2 12/10/17 06:00 69 12/10/17 04:00 80 12/10/17 04:00 98.0 80 27 165/60 (95) 95 12/10/17 02:00 70 12/10/17 00:00 98.1 70 21 149/65 (93) 99 12/10/17 00:00 70 12/09/17 22:00 86 12/09/17 20:49 99 Nasal Cannula 2.00 12/09/17 20:00 98.2 70 35 170/73 (105) 99 12/09/17 20:00 70 12/09/17 16:01 98.0 71 26 146/67 (93) 98 12/09/17 15:01 77 24 147/63 (91) 96 12/09/17 14:01 72 45 155/67 (96) 99 12/09/17 13:01 71 26 155/67 (96) 99 12/09/17 12:01 97.8 69 20 168/72 (104) 98 12/09/17 11:01 69 18 149/68 (95) 100 12/09/17 10:00 80 22 148/67 (94) 96 . Laboratory Tests Test 12/08/17 11:04 12/09/17 04:04 12/10/17 03:30 White Blood Count 14.5 TH/MM3 12.7 TH/MM3 14.8 TH/MM3 Red Blood Count 2.88 MIL/MM3 2.77 MIL/MM3 2.99 MIL/MM3 Hemoglobin 8.7 GM/DL 8.2 GM/DL 8.8 GM/DL Hematocrit 27.4 % 26.0 % 28.3 % Mean Corpuscular Volume 95.0 FL 94.0 FL 94.6 FL Mean Corpuscular Hemoglobin 30.2 PG 29.8 PG 29.5 PG Mean Corpuscular Hemoglobin Concent 31.8 % 31.7 % 31.1 % Red Cell Distribution Width 17.5 % 17.6 % 17.4 % Platelet Count 162 TH/MM3 206 TH/MM3 236 TH/MM3 Mean Platelet Volume 10.0 FL 9.8 FL 10.2 FL Neutrophils (%) (Auto) 79.2 % 75.6 % 78.6 % Lymphocytes (%) (Auto) 5.0 % 7.4 % 5.3 % Monocytes (%) (Auto) 15.1 % 16.7 % 15.5 % Eosinophils (%) (Auto) 0.5 % 0.1 % 0.4 % Basophils (%) (Auto) 0.2 % 0.2 % 0.2 % Neutrophils # (Auto) 11.4 TH/MM3 9.6 TH/MM3 11.6 TH/MM3 Lymphocytes # (Auto) 0.7 TH/MM3 0.9 TH/MM3 0.8 TH/MM3 Monocytes # (Auto) 2.2 TH/MM3 2.1 TH/MM3 2.3 TH/MM3 Eosinophils # (Auto) 0.1 TH/MM3 0.0 TH/MM3 0.1 TH/MM3 Basophils # (Auto) 0.0 TH/MM3 0.0 TH/MM3 0.0 TH/MM3 CBC Comment AUTO DIFF DIFF FINAL AUTO DIFF Differential Total Cells Counted 100 Neutrophils % (Manual) 62 % Band Neutrophils % 18 % Lymphocytes % 9 % Monocytes % 10 % Neutrophils # (Manual) 11.7 TH/MM3 Myelocytes 1 % Differential Comment FINAL DIFF MANUAL AUTO DIFF CONFIRMED Toxic Granulation 1+ Platelet Estimate NORMAL NORMAL Platelet Morphology Comment NORMAL ENLARGED Ovalocytes 1+ 1+ Basophilic Stippling FAINT Keratocytes OCC Laboratory Tests Test 12/09/17 04:04 12/10/17 03:30 Blood Urea Nitrogen 43 MG/DL 48 MG/DL Creatinine 4.75 MG/DL 5.54 MG/DL Random Glucose 131 MG/DL 132 MG/DL Calcium Level 9.5 MG/DL 9.2 MG/DL Sodium Level 142 MEQ/L 141 MEQ/L Potassium Level 3.8 MEQ/L 4.0 MEQ/L Chloride Level 100 MEQ/L 100 MEQ/L Carbon Dioxide Level 32.5 MEQ/L 29.1 MEQ/L Anion Gap 10 MEQ/L 12 MEQ/L Estimat Glomerular Filtration Rate 12 ML/MIN 10 ML/MIN Phosphorus Level 2.6 MG/DL Magnesium Level 2.5 MG/DL Imaging Chest X-Ray 12/04/17 0000 Signed Impressions: Service Date/Time: Monday, December 04, 2017 11:09 - CONCLUSION: 1. Uncomplicated line placement. No evidence of pneumothorax. James Mike MD Head CT 11/30/17 0000 Signed Impressions: Service Date/Time: Thursday, November 30, 2017 22:05 - CONCLUSION: 1. No acute findings. No significant change. Uzair Berrios MD Abdomen X-Ray 11/29/17 0000 Signed Impressions: Service Date/Time: November 16:03 - CONCLUSION: NG tube tip extends into the duodenum Sami Burnett MD Cyst Biopsy Asp-Paracentesis US 11/22/17 0000 Signed Impressions: Service Date/Time: November 15:20 - CONCLUSION: Uncomplicated ultrasound guided paracentesis. 6 L of chylous appearing fluid was removed. Taj Oden MD Catheter Placement X-Ray 11/21/17 [id number] Signed Impressions: Service Date/Time: Tuesday, November 21, 2017 11:42 - CONCLUSION: Uncomplicated PermaCath placement as above. James Mike MD Lower Extremity Ultrasound 11/13/17 0000 Signed Impressions: Service Date/Time: Monday, November 13, 2017 07:52 - CONCLUSION: No DVT seen in either leg. Jewel Kaiser MD Hand X-Ray 11/13/17 0000 Signed Impressions: Service Date/Time: Monday, November 13, 2017 10:18 - CONCLUSION: Osteoporosis. Extensive arterial calcifications. 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 No definite evidence of bony destruction or osteomyelitis Jared Upton MD Physical Exam GENERAL: Awake and alert, following commands, NAD. Slow to respond SKIN: Cool and dry. No rash. Edematous EYES: [place] conjunctiva. No petechia or hemorrhage. No scleral icterus. EARS, NOSE AND THROAT: Moist mucosa. NO nasal drainage NECK: Trachea midline, supple and not tender CARDIOVASCULAR: Regular rate and rhythm. Has systolic murmur over L precordium and base of the heart RESPIRATORY: Decreased at both bases, coarse BS ABDOMEN: Soft, and bowel sounds present and hypoactive. No reaction to palpation. EXTREMITIES: No clubbing, cyanosis. Stable dry gangrene noted. Incision LUE dry, no redness NEUROLOGICAL: awake and following commands LINES: No evidence of infection Assessment & Plan Remarks IMPRESSION Progressive decline in mental status, better today Klebsiella MDR PNA Respiratory failure, tolerating extubation - has DNR status New sepsis, had fevers last 24 hours, due to PNA, better Septic Thrombophlebitis: Enterobacter, completing Rx Enterobacter bacteremia, BC 11/05 (+), ?source - permacath C/S negative (?due to previous Abx) - concern with infected thrombus LUE AVF - completing Rx Thrombosis DRIL LUE AVF S/P Bypass LUE and ligation of AVF and DRIL ESRD on HD MWF Ascites, ?primary liver problem or other etiology LMF dry gangrene Encephalopathy, ?metabolic RECOMMENDATION Continue Zosyn - end date ordered in [facility] - this should also be good to complete his Enterobacter sepsis Patient DNR status Palliative care following -family wants to see how he is this weekend before any final plans on disposition D/W Loraine Harris MD Dec 10, 2017 09:18
[2017-12-10] MEDS: GENTAMICIN SULFATE 20 MG/2 ML VIAL OTHER PRN (09:26)
[2017-12-10] MEDS: EPOETIN ALFA 10,000 UNITS/ML VIAL IV PUSH PRN (09:26)
--- NOTE | 2017-12-10 17:01 | HHI.HCPN ---
Reason for visit a. To assist with evaluation and management of symptoms including: Pain, shortness of breath, debility. b. To assist medical decision maker(s) with: better understanding of current medical conditions; weighing benefits/burdens of medical treatment options; making medical treatment decisions. . Subjective/Interval History Palliative care follow-up for further clarifications of goals of care. Patient seen in medical ICU, s/p medical extubation on 12/06/16. Currently tolerating O2 via nasal cannula 2 L. Patient alert, verbal but cannot always communicate needs secondary to weakness, lethargy. Patient intermittently falling asleep during my visit. at bedside. Patient underwent hemodialysis today, 2.5L removed. Speech therapy following, patient now on mechanical soft diet and thin liquids. Poor oral intake reported. Eating between 10-25% of his meals since medical extubation. Concerns of patient's meeting his caloric needs. Reviewed with feeding options, reports that temporary NG tube for feeding has been discussed. However, she wishes to wait a day or 2 before making that decision. Patient remains afebrile. . Family/friend interactions See interval note. . Advance Directives Living Will: Copy in medical record Health Care Surrogate: Copy in medical record Advance Directive Specifics Date completed: 12/05/2013. . Health Care Surrogate(s): Patient designated her son Derrick Hernandez as surrogate decision maker, alternate surrogate is Jeanine and son Iván. . Documented care wishes: Living will with standard verbiage as it pertains to terminal condition, end- stage condition or persistent vegetative state. . Significant change in goals: Goals of CARE remain aggressive short on no code. . Objective Vital Signs Date Time Temp Pulse Resp B/P (MAP) Pulse Ox O2 Delivery O2 Flow Rate FiO2 12/10/17 15:45 88 12/10/17 15:30 81 12/10/17 15:24 91 12/10/17 15:15 84 12/10/17 15:00 72 12/10/17 14:46 70 12/10/17 14:31 70 12/10/17 14:15 70 12/10/17 14:01 77 12/10/17 14:00 78 12/10/17 12:30 71 42 167/69 (101) 94 12/10/17 12:30 71 12/10/17 12:15 70 12/10/17 12:15 70 38 155/67 (96) 100 12/10/17 12:00 70 12/10/17 12:00 97.9 70 37 153/66 (95) 98 12/10/17 10:31 71 12/10/17 10:15 71 12/10/17 10:00 71 12/10/17 09:16 72 30 138/60 (86) 12/10/17 09:16 72 12/10/17 09:01 89 24 161/65 (97) 97 12/10/17 09:01 89 12/10/17 09:00 72 27 97 12/10/17 09:00 72 12/10/17 08:01 70 26 157/68 (97) 100 12/10/17 08:01 70 12/10/17 08:00 70 12/10/17 08:00 97.9 70 37 100 12/10/17 06:00 69 12/10/17 04:00 80 12/10/17 04:00 98.0 80 27 165/60 (95) 95 12/10/17 02:00 70 12/10/17 00:00 98.1 70 21 149/65 (93) 99 12/10/17 00:00 70 12/09/17 22:00 86 12/09/17 20:49 99 Nasal Cannula 2.00 12/09/17 20:00 98.2 70 35 170/73 (105) 99 12/09/17 20:00 70 Intake & Output 12/10/17 12/10/17 07:00 19:00 Intake Total 50 ml Output Total 0 ml 2500 ml Balance 0 ml -2450 ml IV Total 50 ml Output Urine Total 0 ml Hemodialysis 2500 ml # Bowel Movements 0 Physical Exam CONSTITUTIONAL/GENERAL: This is an adequately nourished patient, in no apparent distress. TUBES/LINES/DRAINS: Nasal cannula, right Vas-Cath, Reese catheter, SCDs. SKIN: No jaundice, rashes, or lesions. Ecchymoses on upper extremities. Skin temperature appropriate. Not diaphoretic. multiple necrotic digits bilaterally. HEAD: Atraumatic. Normocephalic. EYES: Pupils equal and round and reactive. No scleral icterus. No injection or drainage. ENT: Hearing grossly normal. Nose without bleeding or purulent drainage. Moist oral mucosa. NECK: Trachea midline. Supple, nontender. CARDIOVASCULAR: Regular rate and rhythm. Peripheral pedal pulses symmetric. RESPIRATORY/CHEST: Symmetric, unlabored respirations. Coarse breath sounds bilaterally. Tolerating O2 via nasal cannula. GASTROINTESTINAL: Abdomen obese, large, round. Bowel sounds present. GENITOURINARY: Without palpable bladder distension. Reese catheter in place. MUSCULOSKELETAL: Extremities without clubbing. Significant weeping edema to bilateral upper extremities, right more than left. NEUROLOGICAL: Awake, alert x self and situation. Following sleep during my visit. Intermittently following commands. PSYCHIATRIC: Calm. . Diagnostic Tests Laboratory Laboratory Tests Test 12/08/17 04:45 12/08/17 11:04 12/08/17 20:57 12/09/17 04:04 Blood Urea Nitrogen 32 MG/DL (7-18) 43 MG/DL (7-18) Creatinine 3.76 MG/DL (0.60-1.30) 4.75 MG/DL (0.60-1.30) Random Glucose 119 MG/DL (74-106) 131 MG/DL (74-106) Calcium Level 9.0 MG/DL (8.5-10.1) 9.5 MG/DL (8.5-10.1) Sodium Level 140 MEQ/L (136-145) 142 MEQ/L (136-145) Potassium Level 3.8 MEQ/L (3.5-5.1) 3.8 MEQ/L (3.5-5.1) Chloride Level 99 MEQ/L (98-107) 100 MEQ/L (98-107) Carbon Dioxide Level 30.3 MEQ/L (21.0-32.0) 32.5 MEQ/L (21.0-32.0) Anion Gap 11 MEQ/L (5-15) 10 MEQ/L (5-15) Estimat Glomerular Filtration Rate 16 ML/MIN (>89) 12 ML/MIN (>89) White Blood Count 14.5 TH/MM3 (4.0-11.0) 12.7 TH/MM3 (4.0-11.0) Red Blood Count 2.88 MIL/MM3 (4.50-5.90) 2.77 MIL/MM3 (4.50-5.90) Hemoglobin 8.7 GM/DL (13.0-17.0) 8.2 GM/DL (13.0-17.0) Hematocrit 27.4 % (39.0-51.0) 26.0 % (39.0-51.0) Mean Corpuscular Volume 95.0 FL (80.0-100.0) 94.0 FL (80.0-100.0) Mean Corpuscular Hemoglobin 30.2 PG (27.0-34.0) 29.8 PG (27.0-34.0) Mean Corpuscular Hemoglobin Concent 31.8 % (32.0-36.0) 31.7 % (32.0-36.0) Red Cell Distribution Width 17.5 % (11.6-17.2) 17.6 % (11.6-17.2) Platelet Count 162 TH/MM3 (150-450) 206 TH/MM3 (150-450) Mean Platelet Volume 10.0 FL (7.0-11.0) 9.8 FL (7.0-11.0) Neutrophils (%) (Auto) 79.2 % (16.0-70.0) 75.6 % (16.0-70.0) Lymphocytes (%) (Auto) 5.0 % (9.0-44.0) 7.4 % (9.0-44.0) Monocytes (%) (Auto) 15.1 % (0.0-8.0) 16.7 % (0.0-8.0) Eosinophils (%) (Auto) 0.5 % (0.0-4.0) 0.1 % (0.0-4.0) Basophils (%) (Auto) 0.2 % (0.0-2.0) 0.2 % (0.0-2.0) Neutrophils # (Auto) 11.4 TH/MM3 (1.8-7.7) 9.6 TH/MM3 (1.8-7.7) Lymphocytes # (Auto) 0.7 TH/MM3 (1.0-4.8) 0.9 TH/MM3 (1.0-4.8) Monocytes # (Auto) 2.2 TH/MM3 (0-0.9) 2.1 TH/MM3 (0-0.9) Eosinophils # (Auto) 0.1 TH/MM3 (0-0.4) 0.0 TH/MM3 (0-0.4) Basophils # (Auto) 0.0 TH/MM3 (0-0.2) 0.0 TH/MM3 (0-0.2) CBC Comment AUTO DIFF DIFF FINAL Differential Total Cells Counted 100 Neutrophils % (Manual) 62 % (16-70) Band Neutrophils % 18 % (0-6) Lymphocytes % 9 % (9-44) Monocytes % 10 % (0-8) Neutrophils # (Manual) 11.7 TH/MM3 (1.8-7.7) Myelocytes 1 % (0-0) Differential Comment FINAL DIFF MANUAL Toxic Granulation 1+ (NORMAL) Platelet Estimate NORMAL (NORMAL) Platelet Morphology Comment NORMAL (NORMAL) Ovalocytes 1+ (NORMAL) Blood Gas Puncture Site RT RADIAL Blood Gas Patient Temperature 98.6 Blood Gas HCO3 28 mmol/L (22-26) Blood Gas Base Excess 3.6 mmol/L (-2-2) Blood Gas Oxygen Saturation 72 % (90-100) Arterial Blood pH 7.39 (7.380-7.420) Arterial Blood Partial Pressure CO2 48 mmHg (38-42) Arterial Blood Partial Pressure O2 42 mmHg (61-120) Arterial Blood Oxygen Content 8.7 Vol % (12.0-20.0) Arterial Blood Carboxyhemoglobin 1.6 % (0-4) Arterial Blood Methemoglobin 1.3 % (0-2) Blood Gas Hemoglobin 8.5 G/DL (12.0-16.0) Oxygen Delivery Device NASAL CANNULA Blood Gas Liter Flow 2 L/M Test 12/10/17 03:30 White Blood Count 14.8 TH/MM3 (4.0-11.0) Red Blood Count 2.99 MIL/MM3 (4.50-5.90) Hemoglobin 8.8 GM/DL (13.0-17.0) Hematocrit 28.3 % (39.0-51.0) Mean Corpuscular Volume 94.6 FL (80.0-100.0) Mean Corpuscular Hemoglobin 29.5 PG (27.0-34.0) Mean Corpuscular Hemoglobin Concent 31.1 % (32.0-36.0) Red Cell Distribution Width 17.4 % (11.6-17.2) Platelet Count 236 TH/MM3 (150-450) Mean Platelet Volume 10.2 FL (7.0-11.0) Neutrophils (%) (Auto) 78.6 % (16.0-70.0) Lymphocytes (%) (Auto) 5.3 % (9.0-44.0) Monocytes (%) (Auto) 15.5 % (0.0-8.0) Eosinophils (%) (Auto) 0.4 % (0.0-4.0) Basophils (%) (Auto) 0.2 % (0.0-2.0) Neutrophils # (Auto) 11.6 TH/MM3 (1.8-7.7) Lymphocytes # (Auto) 0.8 TH/MM3 (1.0-4.8) Monocytes # (Auto) 2.3 TH/MM3 (0-0.9) Eosinophils # (Auto) 0.1 TH/MM3 (0-0.4) Basophils # (Auto) 0.0 TH/MM3 (0-0.2) CBC Comment AUTO DIFF Differential Comment AUTO DIFF CONFIRMED Platelet Estimate NORMAL (NORMAL) Platelet Morphology Comment ENLARGED (NORMAL) Basophilic Stippling FAINT (NORMAL) Ovalocytes 1+ (NORMAL) Keratocytes OCC (NORMAL) Blood Urea Nitrogen 48 MG/DL (7-18) Creatinine 5.54 MG/DL (0.60-1.30) Random Glucose 132 MG/DL (74-106) Calcium Level 9.2 MG/DL (8.5-10.1) Phosphorus Level 2.6 MG/DL (2.5-4.9) Magnesium Level 2.5 MG/DL (1.5-2.5) Sodium Level 141 MEQ/L (136-145) Potassium Level 4.0 MEQ/L (3.5-5.1) Chloride Level 100 MEQ/L (98-107) Carbon Dioxide Level 29.1 MEQ/L (21.0-32.0) Anion Gap 12 MEQ/L (5-15) Estimat Glomerular Filtration Rate 10 ML/MIN (>89) Result Diagram: 12/10/17 0330 12/10/17 0330 Procedures * 11/20/17: Left brachial-brachial bypass using vein with interposition graft * 11/21/17: Permacath placement. * 11/20/17: Endotracheal intubation. * 11/22/17: Paracenteses, 6 L removed. * 11/24/17: Medical extubation * 12/03/17: Reintubation * 12/06/17: Medical extubation . Assessment and Plan Disease Oriented Problem List: (1) Sepsis (2) Acute respiratory failure (3) Metabolic encephalopathy (4) ESRD (end stage renal disease) on dialysis (5) Gangrene of finger of left hand Symptom Scale: (1) Pain 0-10 Scale: Unable to quantify Pertinent Non-Medical Issues Psychosocial: Patient is originally from [place]. Moved to [place] 28 years ago. Currently for the past 34 years. Has a total of 4 children, 2 with current . 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 No service. Spiritual: Restorationist natalia. Legal: Advance directives completed. Ethical issues impacting care: No ethical issues identified. . Important Contacts Son Derrick/[facility] Patient's Jeanine Son Iván . Prognosis Mr. Hernandez is a 67-year-old male with a medical history significant for end- stage renal disease on hemodialysis, CAD status post CABG in 2004, CHF, hypertension, diabetes mellitus. Patient was transferred from [facility] to be evaluated by vascular surgery secondary to occluded left AV fistula at the proximal anastomosis as well as ischemic digits. Clinical course complicated by septic bacteremia, respiratory failure requiring intubation and mechanical ventilation, severe metabolic encephalopathy and hypotension. Patient at a very high risk for further complications, continue decline and . Overall prognosis is guarded at this time. . Code Status: No Code Plan * CODE STATUS: No code. DNR/DNI. * HEALTHCARE DECISION-MAKING: Patient unable at this time to participating in medical decision-making secondary to clinical condition, encephalopathy. However, improving. Advanced directives completed, patient has elected her son Derrick as healthcare surrogate decision maker, alternate surrogate is his Jeanine AND son Iván. * GOALS OF CARE: Goals of therapy remain unchanged, aggressive management short of NO code -DNR/DNI. Concerns regarding patient progressive decline and poor oral intake has been discussed with family. Reviewed with feeding options , reports that temporary NG tube for feeding has been discussed. However, she wishes to wait a day or 2 before making that decision. Family aware that patient remains at a very high risk for further complications, continued decline and . Hospice philosophy and benefits reviewed at length. Family receptive to hospice should patient's clinical condition worsen or additional decline. * SYMPTOMS: = Pain, secondary to multiple interventions, lines, necrotic digits , prolonged hospitalization. Oxycodone 5 mg available as needed. None given in the past 24 hours, patient appears comfortable. No recommendations at this time. = Shortness of breath: Patient s/p med extubation. Tolerating O2 via nasal cannula. * Palliative care contact information has been provided to patient's family. * Palliative care will continue to follow-up for further clarifications of goals of care as patient's clinical course continues to evolve. Family receptive to this. . Time Spent Total Floor Time (mins): 27 (Total time to include review medical records, physical exam, goals of care conversation with family. ) >50% Counseling/Coord of Care: Yes Attestation To help prompt me to consider important information that might be impacting today's encounter and assessment, information from prior notes written by myself or my colleagues may have been "brought forward" into today's note. My signature on this note, however, is an attestation that I personally performed the exam, history, and/or decision-making noted today, and, unless otherwise indicated, the interactions with patient, family, and staff as well as the review of records all occurred today. I also attest that the listed assessment and stated plan reflect my best clinical judgment today based on the combination of historical information, prior notes, and today's exam/ interactions. When time spent is documented, it refers only to time spent today by the signer, or if indicated, combined time spent today by collaborating physician/nurse practitioner. Lisa Saha Dec 10, 2017 17:01
--- NOTE | 2017-12-10 19:15 | HHI.NPPN ---
Subjective History of Present Illness Patient is a 67-year-old male with a history of end-stage renal disease on hemodialysis Sunday/Sunday/ Sunday, diabetes, CAD, CHF, hypertension was transferred from [facility] to be evaluated by vascular surgery. Patient states he was admitted to [facility] because he had low blood pressure readings at home. AV fistula has not been functioning or used for 6- 8 weeks and they have been using a permacath for dialysis. Permacath has been removed secondary to possible infection and vas cath has been placed. He has been treated with cefepime IV. Last dialysis was Sunday and 1.5 L removed. Patient has a necrotic left middle finger that patient states has been going on for the last 12 weeks. Additional Remarks Patient seen earlier in the afternoon, awake, open eyes, still not fully oriented. Review of Systems Genitourinary Remarks Objective Data Data 12/10/17 12/11/17 19:00 07:00 Intake Total 740 ml Output Total 2500 ml Balance -1760 ml Intake Oral 640 ml IV Total 100 ml Hemodialysis 2500 ml # Bowel Movements 1 Vital Signs Date Time Temp Pulse Resp B/P (MAP) Pulse Ox O2 Delivery O2 Flow Rate FiO2 12/10/17 18:46 95 12/10/17 18:30 91 12/10/17 18:15 95 12/10/17 18:01 95 12/10/17 18:00 95 12/10/17 17:30 95 27 171/74 (106) 83 12/10/17 17:30 95 12/10/17 17:16 96 21 171/71 (104) 12/10/17 17:16 96 12/10/17 17:01 88 22 173/73 (106) 12/10/17 17:01 88 12/10/17 17:00 95 12/10/17 17:00 95 21 12/10/17 16:46 95 38 173/73 (106) 82 12/10/17 16:46 95 12/10/17 16:30 95 12/10/17 16:30 95 29 168/63 (98) 12/10/17 16:15 95 26 160/71 (100) 93 12/10/17 16:15 95 12/10/17 16:00 96 12/10/17 16:00 98.1 96 27 161/68 (99) 92 12/10/17 15:45 88 12/10/17 15:30 81 12/10/17 15:24 91 12/10/17 15:15 84 12/10/17 15:00 72 12/10/17 14:46 70 12/10/17 14:31 70 12/10/17 14:15 70 12/10/17 14:01 77 12/10/17 14:00 78 12/10/17 12:30 71 42 167/69 (101) 94 12/10/17 12:30 71 12/10/17 12:15 70 12/10/17 12:15 70 38 155/67 (96) 100 12/10/17 12:00 70 12/10/17 12:00 97.9 70 37 153/66 (95) 98 12/10/17 10:31 71 12/10/17 10:15 71 12/10/17 10:00 71 12/10/17 09:16 72 30 138/60 (86) 12/10/17 09:16 72 12/10/17 09:01 89 24 161/65 (97) 97 12/10/17 09:01 89 12/10/17 09:00 72 27 97 12/10/17 09:00 72 12/10/17 08:01 70 26 157/68 (97) 100 12/10/17 08:01 70 12/10/17 08:00 70 12/10/17 08:00 97.9 70 37 100 12/10/17 06:00 69 12/10/17 04:00 80 12/10/17 04:00 98.0 80 27 165/60 (95) 95 12/10/17 02:00 70 12/10/17 00:00 98.1 70 21 149/65 (93) 99 12/10/17 00:00 70 12/09/17 22:00 86 12/09/17 20:49 99 Nasal Cannula 2.00 12/09/17 20:00 98.2 70 35 170/73 (105) 99 12/09/17 20:00 70 -: 12/10/17 0330 12/10/17 0330 Tubes & Lines: Perma-Cath Physical Exam General Appearance: No Acute Distress, Comfortable Eyes Eye Exam: Pupils Equal Throat Throat Exam: Oral Mucosa Herreid & Moist Pulmonary Resp Exam: Breath Sounds Equal, No Distress, Rhonchi, Decreased Bases Cardiology CV Exam: Regular Gastrointestinal/Abdomen GI Exam: Soft, Non-Tender, Bowel Sounds Present Extremeties Extremities Exam: Moderate Edema (Left arm and hand swelling.) Neurologic Neuro Exam: Alert, Awake Assessment/Plan Discussed Condition With: Spouse Assessment Summary: End Stage Renal Disease Problem List: (1) ESRD (end stage renal disease) on dialysis ICD Codes: N18.6 - End stage renal disease; Z99.2 - Dependence on renal dialysis Plan: Dialysis MWF s/p LUE AVF ligation for hand ischemia Antibiotics per ID ESBL noted in urine on isolation Epogen with dialysis Ongoing confusion- continue to monitor. HD done, and tolerated. BP is stable. D/W the at bed side. Hgb. is low, on Epogen. (2) Gangrene of finger of left hand ICD Codes: I96 - Gangrene, not elsewhere classified Plan: necrotic area on left hand middle finger (3) AV fistula occlusion ICD Codes: T82.898A - Other specified complication of vascular prosthetic devices, implants and grafts, initial encounter Plan: s/p L UE bypass 2/6 ligation of AVF and DRIL (4) Diabetes mellitus ICD Codes: E11.9 - Type 2 diabetes mellitus without complications Plan: Maintain BS between 140mg/dl to 180 mg/dl Kim Santos MD Dec 10, 2017 19:15
[2017-12-11] VITALS (35 sets, daily range): BP systolic 133–187; BP diastolic 60–77; PULSE 69–95; RESP 18–40; TEMP 97.1–98.3; O2SAT 78–100
[2017-12-11] MEDS: RESP: ALBUTEROL 2.5 MG/IPRATROPIUM 0.5 MG NEB (SCH) NEB ×4 (03:22→21:29)
[2017-12-11 04:11] LABS: AUTOMATED NEUTROPHIL # 12.3 TH/MM3 (1.8-7.7); BASOPHIL % 0.3 % (0.0-2.0); EOSINOPHIL # 0.1 TH/MM3 (0-0.4); EOSINOPHIL % 0.5 % (0.0-4.0); HEMATOCRIT 28.4 % (39.0-51.0); HEMOGLOBIN 8.9 GM/DL (13.0-17.0); LYMPHOCYTE # 0.8 TH/MM3 (1.0-4.8); MEAN CELL VOLUME 95.1 FL (80.0-100.0); MEAN CORPUSCULAR HEMOGLOBIN 29.8 PG (27.0-34.0); MEAN CORPUSCULAR HGB CONC 31.4 % (32.0-36.0); MONO % 13.6 % (0.0-8.0); MONOCYTE # 2.1 TH/MM3 (0-0.9); NEUT % 80.6 % (16.0-70.0); PLATELET COUNT 257 TH/MM3 (150-450); RED BLOOD COUNT 2.99 MIL/MM3 (4.50-5.90); RED CELL DISTRIBUTION WIDTH 17.8 % (11.6-17.2); WHITE BLOOD COUNT 15.2 TH/MM3 (4.0-11.0)
[2017-12-11 04:23] LABS: BICARBONATE 26.4 MEQ/L (21.0-32.0); CALCIUM 9.2 MG/DL (8.5-10.1); CREATININE 4.38 MG/DL (0.60-1.30)
[2017-12-11] MEDS: PIPERACIL-TAZO 2.25 GM PREMIX 50 ML IV SCH ×3 (06:24→20:27)
[2017-12-11] MEDS: MIDODRINE 5 MG TAB PO SCH ×2 (06:24→12:55)
[2017-12-11] MEDS: INSULIN ASPART SUPPLEMENTAL SCALE SQ SCH ×4 (08:00→20:28)
[2017-12-11] MEDS: SODIUM CHLORIDE 0.9% FLUSH 10 ML FLUSH IV FLUSH SCH ×2 (09:00→20:26)
[2017-12-11] MEDS: PANTOPRAZOLE SOD 40 MG DELAYED RELEASE TAB PO SCH (09:13)
[2017-12-11] MEDS: CALCIUM ACETATE 667 MG CAP PO SCH ×3 (09:13→18:19)
[2017-12-11] MEDS: DOCUSATE SODIUM 50 MG/SENNA 8.6 MG TAB PO SCH ×2 (09:13→19:55)
[2017-12-11] MEDS: THYROID 60 MG TAB PO SCH ×2 (09:13→20:26)
[2017-12-11] MEDS: CLOPIDOGREL 75 MG TAB PO SCH (09:13)
[2017-12-11] MEDS: ASPIRIN EC 81 MG TABEC PO SCH (09:13)
[2017-12-11] MEDS: NYSTATIN 100,000 UNIT/GM CREAM 15 GM TOPICAL SCH ×2 (09:14→20:27)
[2017-12-11] MEDS: BACITRACIN TOP OINT 15 GM TUBE TOPICAL SCH ×2 (09:14→20:27)
[2017-12-11] MEDS: HEPARIN SODIUM - SQ 10,000 UNITS/ML VIAL SQ SCH ×2 (09:14→20:27)
[2017-12-11] MEDS: DEXAMETHASONE SOD PHOS 4 MG/ML VIAL IV PUSH SCH (09:17)
--- NOTE | 2017-12-11 11:08 | MG ---
cc: Cherelle Eden MD EEG#: [id number] REFERRING PHYSICIAN: In room 500 with photic stimulation, awake. CT is negative. A 67-year-old man with hypothyroidism, pacemaker, hypertension, end-stage renal disease on dialysis, on midodrine, heparin, thyroid medicine, Plavix, aspirin, Zosyn. DESCRIPTION OF RECORD: Some slowing noted, 3-4 Hz background, a lot of artifact, movement of the patient, left hand, he is scratching it. No epileptic activity. There is no hyperventilation. Photic stimulation, no significant driving response. IMPRESSION: Moderate slowing consistent with encephalopathic process, no epileptiform features. Clinical correlation. Cherelle Eden MD DF/TI/rr , 08:30 AM , 09:20 AM
[2017-12-11] MEDS ORDERED: DOXAZOSIN MESYLATE 2 MG TAB PO ONE (15:00)
--- NOTE | 2017-12-11 15:00 | HHI.PR ---
Subjective Remarks Patient's and 2 sons are at bedside. The patient denies any chest pain or shortness of breath. Family states the patient is not eating much and has a poor appetite. Patient's blood pressure is noted to be severely elevated into the 170 systolic. Objective Vitals Vital Signs Date Time Temp Pulse Resp B/P (MAP) Pulse Ox O2 Delivery O2 Flow Rate FiO2 12/11/17 14:01 78 12/11/17 14:00 93 12/11/17 13:16 80 12/11/17 13:00 93 12/11/17 13:00 93 21 178/77 (110) 100 12/11/17 12:53 72 12/11/17 12:53 72 21 162/67 (98) 100 12/11/17 12:45 81 12/11/17 12:45 81 24 187/76 (113) 100 12/11/17 12:31 83 12/11/17 12:31 83 21 172/74 (106) 100 12/11/17 12:15 70 18 171/74 (106) 100 12/11/17 12:15 70 12/11/17 12:00 98.2 70 21 163/69 (100) 100 12/11/17 12:00 70 12/11/17 10:15 71 21 171/73 (105) 100 12/11/17 10:15 71 12/11/17 10:00 71 12/11/17 10:00 71 21 172/74 (106) 12/11/17 09:45 90 12/11/17 09:45 90 24 179/76 (110) 12/11/17 09:31 95 21 178/77 (110) 94 12/11/17 09:31 95 12/11/17 09:16 90 24 161/76 (104) 98 12/11/17 09:16 90 12/11/17 09:08 83 12/11/17 09:08 83 22 168/72 (104) 96 12/11/17 09:00 95 33 78 12/11/17 09:00 95 12/11/17 08:45 70 12/11/17 08:45 70 33 152/68 (96) 95 12/11/17 08:30 69 12/11/17 08:30 69 30 148/63 (91) 96 12/11/17 08:15 83 29 155/67 (96) 94 18 08:15 83 18 08:00 97.9 93 40 158/68 (98) 95 18 08:00 93 12/11/17 07:50 97 Nasal Cannula 3.00 12/11/17 06:00 93 12/11/17 04:00 94 12/11/17 04:00 98.1 94 24 133/60 (84) 81 12/11/17 02:00 98.3 94 24 149/67 (94) 95 18 02:00 94 12/11/17 00:00 88 12/10/17 22:00 84 12/10/17 20:00 96 12/10/17 20:00 98.3 96 31 177/74 (108) 100 12/10/17 19:37 100 Nasal Cannula 2.00 12/10/17 18:46 95 12/10/17 18:30 91 12/10/17 18:15 95 12/10/17 18:01 95 12/10/17 18:00 95 12/10/17 17:30 95 27 171/74 (106) 83 12/10/17 17:30 95 18 17:16 96 21 171/71 (104) 12/10/17 17:16 96 12/10/17 17:01 88 22 173/73 (106) 18 17:01 88 12/10/17 17:00 95 18 17:00 95 21 12/10/17 16:46 95 38 173/73 (106) 82 18 16:46 95 18 16:30 95 18 16:30 95 29 168/63 (98) 18 16:15 95 26 160/71 (100) 93 18 16:15 95 18 16:00 96 18 16:00 98.1 96 27 161/68 (99) 92 18 15:45 88 12/10/17 15:30 81 12/10/17 15:24 91 18 15:15 84 I/O 12/10/17 12/10/1718 12/11/17 12/11/17 12/11/17 07:00 15:00 23:00 07:00 15:00 23:00 Intake Total 50 ml 740 ml 60 ml 50 ml Output Total 0 ml 2500 ml 0 ml Balance 0 ml -2450 ml 740 ml 60 ml 50 ml Intake Oral 640 ml 60 ml IV Total 50 ml 100 ml 50 ml Output Urine Total 0 ml 0 ml Hemodialysis 2500 ml # Bowel Movements 0 1 2 Result Diagram: 12/11/1731412/11/17314 Imaging Last Impressions Chest X-Ray 12/04/17 0000 Signed Impressions: Service Date/Time: Monday, December 04, 2017 11:09 - CONCLUSION: 1. Uncomplicated line placement. No evidence of pneumothorax. James Mike MD Head CT 11/30/17 0000 Signed Impressions: Service Date/Time: Thursday, November 30, 2017 22:05 - CONCLUSION: 1. No acute findings. No significant change. Uzair Berrios MD Abdomen X-Ray 11/29/17 0000 Signed Impressions: Service Date/Time: November 16:03 - CONCLUSION: NG tube tip extends into the duodenum Sami Burnett MD Cyst Biopsy Asp-Paracentesis US 11/22/17 0000 Signed Impressions: Service Date/Time: November 15:20 - CONCLUSION: Uncomplicated ultrasound guided paracentesis. 6 L of chylous appearing fluid was removed. Taj Oden MD Catheter Placement X-Ray 11/21/17 1554 Signed Impressions: Service Date/Time: Tuesday, November 21, 2017 11:42 - CONCLUSION: Uncomplicated PermaCath placement as above. James Mike MD Lower Extremity Ultrasound 11/13/17 0000 Signed Impressions: Service Date/Time: Monday, November 13, 2017 07:52 - CONCLUSION: No DVT seen in either leg. Jewel Kaiser MD Hand X-Ray 11/13/17 0000 Signed Impressions: Service Date/Time: Monday, November 13, 2017 10:18 - CONCLUSION: Osteoporosis. Extensive arterial calcifications. 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 No definite evidence of bony destruction or osteomyelitis Jared Upton MD Objective Remarks GENERAL: sitting up on edge of bed. Appears comfortable. again, no change on exam. SKIN: Warm and dry. HEAD: Normocephalic. EYES: No scleral icterus. No injection or drainage. NECK: Supple, trachea midline. No JVD. CARDIOVASCULAR: Regular rate and rhythm without murmurs, gallops, or rubs. RESPIRATORY: Breath sounds equal bilaterally. No accessory muscle use. GASTROINTESTINAL: Abdomen soft, non-tender, nondistended. MUSCULOSKELETAL: No cyanosis, or edema. patient does have dry gangrene of left third finger. No erythema proximally. BACK: Nontender without obvious deformity. No CVA tenderness. Procedures 11/20 Sp LUE angiogram. 11/21 permacath placement Medications and IVs Current Medications Medications (Trade) Dose Ordered Sig/Renny Route Start Time Stop Time Status Last Admin (NS Flush) 2 ml BID IV FLUSH 11/12/17 21:00 12/11/17 09:00 (Zofran Inj) 4 mg Q6H PRN IVP 11/12/17 20:00 (Narcan Inj) 0.4 mg UNSCH PRN IV PUSH 11/12/17 20:00 (D50w (Vial) Inj) 50 ml UNSCH PRN IV PUSH 11/12/17 23:30 (Glucagon Inj) 1 mg UNSCH PRN OTHER 11/12/17 23:30 (Phoslo) 667 mg TID PO 11/13/17 09:00 12/11/17 12:53 (Ecotrin Ec) 162 mg DAILY PO 11/13/17 09:00 12/11/17 09:13 (Plavix) 75 mg DAILY PO 11/13/17 09:00 Future hold 12/11/17 09:13 (Baciguent Oint) 1 applic Q12HR TOPICAL 11/13/17 21:00 12/11/17 09:14 Sodium Chloride 1,000 ml @ 0 mls/hr Q0M PRN OTHER 11/13/17 14:09 12/03/17 18:45 (Heparin Inj) 8,000 units UNSCH PRN IV FLUSH 11/13/17 14:15 11/15/17 15:23 Sodium Chloride 1,000 ml @ 200 mls/hr Q5H PRN IV 11/13/17 14:09 11/26/17 07:15 Sodium Chloride 1,000 ml @ 0 mls/hr Q0M PRN OTHER 11/13/17 14:09 (Mannitol Inj) 12.5 gm UNSCH PRN IV 11/13/17 14:15 11/17/17 11:53 Albumin Human 100 ml @ 60 mls/hr UNSCH PRN IV 11/13/17 14:15 12/03/17 18:46 (NS Flush) 5 ml UNSCH PRN IV FLUSH 11/13/17 14:15 12/03/17 18:46 (Heparin Inj) UNSCH PRN .XX 11/13/17 14:15 12/07/17 13:52 (Gentamicin Inj) 20 mg UNSCH PRN OTHER 11/13/17 14:15 12/10/17 09:26 (Zofran Inj) 4 mg UNSCH PRN IV PUSH 11/13/17 14:15 (Tylenol) 650 mg UNSCH PRN PO 11/13/17 14:15 11/18/17 08:40 (Benadryl) 25 mg UNSCH PRN PO 11/13/17 14:15 (Nitrostat Sl) 0.4 mg UNSCH PRN SL 11/13/17 14:15 (Catapres) 0.1 mg UNSCH PRN PO 11/13/17 14:15 (Epogen Inj) 4,000 units UNSCH PRN IV PUSH 11/13/17 14:15 12/10/17 09:26 (Gelfoam 12 Mm/7 Mm Top) 1 foam UNSCH PRN TOP 11/13/17 14:15 (Coreg) 3.125 mg BID PO 11/16/17 21:00 Future hold 11/22/17 08:37 (Neurontin) 100 mg TID PO 11/20/17 18:00 Future Hold 11/25/17 18:34 (Sobieski Thyroid) 60 mg BID PO 11/20/17 21:00 12/11/17 09:13 (Roxicodone) 5 mg Q4H PRN PO 11/20/17 15:15 (Marleny-Colace) 1 tab BID PO 11/20/17 21:00 12/11/17 09:13 (Milk Of Magnesia Liq) 30 ml Q12H PRN PO 11/20/17 15:15 (Senokot) 17.2 mg Q12H PRN PO 11/20/17 15:15 12/05/17 09:54 (Dulcolax Supp) 10 mg DAILY PRN RECTAL 11/20/17 15:15 (Lactulose Liq) 30 ml DAILY PRN PO 11/20/17 15:15 (NS Flush) 5 ml UNSCH PRN IV FLUSH 11/20/17 17:45 (Heparin Inj) 2,000 units UNSCH PRN IV FLUSH 11/20/17 17:45 12/10/17 09:26 (Mycostatin Cream) 1 applic Q12HR TOPICAL 11/24/17 14:00 12/11/17 09:14 (Heparin Inj) 5,000 units Q12HR SQ 11/26/17 21:00 12/11/17 09:14 Piperacillin Sod/ Tazobactam Sod 50 ml @ 100 mls/hr Q8H IV 12/03/17 14:00 12/13/17 23:00 12/11/17 12:53 (Brethine Inj) 1 mg UNSCH PRN SQ 12/04/17 09:15 (Duoneb Neb) 1 ampule Q6HR NEB NEB 12/08/17 22:00 12/11/17 15:38 (Albuterol Neb) 2.5 mg Q2HR NEB PRN NEB 12/08/17 20:30 (Protonix) 40 mg DAILY PO 12/09/17 09:00 12/11/17 09:13 (NovoLOG SUPPLEMENTAL SCALE) 1 ACHS SQ 12/09/17 17:00 12/11/17 12:00 (Tylenol 650 Mg/ 20 ml Liq) 650 mg Q6H PRN PO 12/09/17 15:45 (Megace Liq) 400 mg DAILY PO 12/11/17 15:15 A/P Problem List: (1) AV fistula occlusion ICD Code: T82.898A - Other specified complication of vascular prosthetic devices, implants and grafts, initial encounter (2) ESRD (end stage renal disease) on dialysis ICD Code: N18.6 - End stage renal disease; Z99.2 - Dependence on renal dialysis (3) Diabetes mellitus ICD Code: E11.9 - Type 2 diabetes mellitus without complications Assessment and Plan Metabolic encephalopathy Peripheral neuropathy Use acetaminophen 650 mg by mouth every 6 hours when necessary fever/pain 1-3 oxycodone every 4 hours prn 4-10. - CT brain 11/26 and 11/30 negative - Not candidate for MRI brain due to pacer. Gabapentin 100 mg daily currently on hold. Resume when clinically indicated - Ammonia level 21 on 11/30 -B12 within normal limits - EEG 11/27 - mildly abnormal with mild encephalopathy -EEG 12/03: mod/severe encephalopathy, no ictal activity. Intermittent triphasic (which is c/w metabolic encephalopathy). No sz. Neurology has followed- Dr. Hayden -Suspected metabolic encephalopathy For repeat EEG today Resp: Acute respiratory failure, resolved - Extubated 11/24/17 Reintubated 12/03, extubated 12/06 Remains on NC maintain saturations greater than equal to 90%. Albuterol/ipratropium aerosols every 6 hours with albuterol aerosols every 2 hours. As needed Dyspnea CVS: Hypotension - resolved Bilateral upper extremity ischemia -s/p L UE brachial-brachial bypass and access ligation 11/20/17 Dr. Jansen Uncontrolled hypertension -active - Continue aspirin 162 milligrams daily, clopidogrel bisulfate 75 mg daily. Noted on aspirin 81 mg daily at home - Midodrine 10 mg every 8 hours - cortisol level 16.2 . Previously on dexamethasone 4 mg IV daily to cover for adrenal insufficiency on 12/05. Hypotension responded to therapy, suspected relative adrenal insufficiency. Now hypertension, now on dexamethasone to 2 mg IV daily. Eventually will be transitioned to hydrocortisone and fludrocortisone po with or without cosyntropin stress. Echocardiogram 11/14/17 - The left ventricular systolic function is normal with an estimated ejection fraction in the range of 55-60%. Wall thickness is measured at the upper limits of normal. Normal left ventricular size. The left atrial size is mildly dilated. Mild thickening of the mitral valve leaflets. Trace mitral valve regurgitation. Moderate mitral annular calcification. 12/11 hypotension has resolved and the patient now has uncontrolled hypertension with systolic blood pressure in the 170s. The patient is also medial joint which I will discontinue. Resume Coreg. GI: Chronic moderate protein energy malnutrition. Dysphagia Poor appetite -On PO diet per speech - Large-volume ascites removed 11/22/17 - On pantoprazole 40 mg for GI prophylaxis medication -metoclopramide 5mg IV Q8hrly for GI motility on 12/05, d/c'd 12/07. - Docusate sodium/senna 1 tablet twice a day for bowel regimen 12/11 start Megace for poor appetite. Continue management as above. Renal/FEN/ : End-stage renal disease - Hemodialysis per nephrology Sunday/Sunday. For HD today - R PermCath placement 11/21 by IR. -Monitor renal function, avoid nephrotoxins Seen calcium acetate 6670 g 3 times a day/home medication ID: Septic thrombophlebitis resolved Enterobacter bacteremia, BC 11/05 (+), ?source - permacath C/S negative (?due to previous Abx) - concern with infected thrombus LUE AVF HCAP 12/03 Sputum cx: Kleb pneumonia ESBL Septic shock, resolved Antibiotics per ID, Dr. Martinez: Zosyn 12/03 #7. Plan for minimum 7 day course. Pertinent cultures: 12/03 - blood cultures 2 - no growth 12/03/18 sputum - Klebsiella ESBL 11/24 - cultures 2 - no growth2 11/23 - catheter tip - no growth 11/22 - peritoneal fluid - no growth 11/15 - blood cultures 2 - no growth 11/13 - blood cultures 2 - no growth Heme: Leukocytosis Anemia of chronic kidney disease/normocytic Monitor CBC, on Epogen with HD Endo : Diabetes mellitus Hypothyroidism ?relative adrenal insufficinecy -SSI (Novulog medium scale) with bedside glucose every before meals/at bedtime On Novulin 70/30 12 units twice a day with sliding scale at home On Sobieski Synthroid 60mg BID, TSH 9.7 on 11/30 free T4 1.06. Free T3 1.57. Dexamethasone 2 mg IV daily as per above. DVT GI prophylaxis SCDs and Subcutaneous heparin 5000 q12 Pantoprazole 40 mg by mouth daily Lines: peripheral IV's. R Permacath 11/21/17 Dr. Mike DNR/DNI. Palliative care following. Patient is currently not capacitated for medical decision-making. Son, Derrick, is his healthcare surrogate [phone]. Per palliative care documentation, hospice has been discussed and family has been receptive to hospice if there is additional decline. Discharge Planning Pending clinical improvement. PAtient with uncontrolled htn and poor appetite. Mat Shah MD Dec 11, 2017 15:00
--- NOTE | 2017-12-11 16:24 | HHI.NPPN ---
Subjective History of Present Illness Patient is a 67-year-old male with a history of end-stage renal disease on hemodialysis Sunday/Sunday/ Sunday, diabetes, CAD, CHF, hypertension was transferred from [facility] to be evaluated by vascular surgery. Patient states he was admitted to [facility] because he had low blood pressure readings at home. AV fistula has not been functioning or used for 6- 8 weeks and they have been using a permacath for dialysis. Permacath has been removed secondary to possible infection and vas cath has been placed. He has been treated with cefepime IV. Last dialysis was Sunday and 1.5 L removed. Patient has a necrotic left middle finger that patient states has been going on for the last 12 weeks. Additional Remarks Patient resting comfortably, no acute problems noted (Kathleen Olguin) Review of Systems Genitourinary Remarks (Kathleen Olguin) Objective Data Data 12/11/17 12/12/17 18:59 06:59 Intake Total 100 ml Balance 100 ml IV Total 100 ml Vital Signs Date Time Temp Pulse Resp B/P (MAP) Pulse Ox O2 Delivery O2 Flow Rate FiO2 12/11/17 15:39 100 Nasal Cannula 2.00 12/11/17 14:01 78 12/11/17 14:00 93 12/11/17 13:16 80 12/11/17 13:00 93 12/11/17 13:00 93 21 178/77 (110) 100 12/11/17 12:53 72 12/11/17 12:53 72 21 162/67 (98) 100 12/11/17 12:45 81 12/11/17 12:45 81 24 187/76 (113) 100 12/11/17 12:31 83 12/11/17 12:31 83 21 172/74 (106) 100 12/11/17 12:15 70 18 171/74 (106) 100 12/11/17 12:15 70 12/11/17 12:00 98.2 70 21 163/69 (100) 100 12/11/17 12:00 70 12/11/17 10:15 71 21 171/73 (105) 100 12/11/17 10:15 71 12/11/17 10:00 71 12/11/17 10:00 71 21 172/74 (106) 12/11/17 09:45 90 12/11/17 09:45 90 24 179/76 (110) 12/11/17 09:31 95 21 178/77 (110) 94 12/11/17 09:31 95 12/11/17 09:16 90 24 161/76 (104) 98 12/11/17 09:16 90 12/11/17 09:08 83 12/11/17 09:08 83 22 168/72 (104) 96 12/11/17 09:00 95 33 78 12/11/17 09:00 95 12/11/17 08:45 70 12/11/17 08:45 70 33 152/68 (96) 95 12/11/17 08:30 69 12/11/17 08:30 69 30 148/63 (91) 96 12/11/17 08:15 83 29 155/67 (96) 94 12/11/17 08:15 83 12/11/17 08:00 97.9 93 40 158/68 (98) 95 12/11/17 08:00 93 12/11/17 07:50 97 Nasal Cannula 3.00 12/11/17 06:00 93 12/11/17 04:00 94 12/11/17 04:00 98.1 94 24 133/60 (84) 81 12/11/17 02:00 98.3 94 24 149/67 (94) 95 12/11/17 02:00 94 12/11/17 00:00 88 12/10/17 22:00 84 12/10/17 20:00 96 12/10/17 20:00 98.3 96 31 177/74 (108) 100 12/10/17 19:37 100 Nasal Cannula 2.00 18 18:46 95 218 18:30 91 18 18:15 95 18 18:01 95 18 18:00 95 18 17:30 95 27 171/74 (106) 83 18 17:30 95 18 17:16 96 21 171/71 (104) 18 17:16 96 18 17:01 88 22 173/73 (106) 18 17:01 88 2 17:00 95 12/10/17 17:00 95 21 12/10/17 16:46 95 38 173/73 (106) 82 12/10/17 16:46 95 12/10/17 16:30 95 12/10/17 16:30 95 29 168/63 (98) (Kathleen Olguin) -: 12/11/17 0315 12/11/17 0315 Tubes & Lines: Perma-Cath (Kathleen Olguin) Physical Exam General Appearance: No Acute Distress, Comfortable (Kathleen Olguin) Eyes Eye Exam: Pupils Equal (Kathleen Olguin) Throat Throat Exam: Oral Mucosa [place] & Moist Throat Remarks NG tube (Kathleen Olguin) Pulmonary Resp Exam: Breath Sounds Equal, No Distress, Rhonchi, Decreased Bases (Kathleen Olguin) Cardiology CV Exam: Regular (Kathleen Olguin) Gastrointestinal/Abdomen GI Exam: Soft, Non-Tender, Bowel Sounds Present (Kathleen Olguin) Integumentary Skin Remarks necrotic area on tip on left hand middle finger (Kathleen Olguin) Extremeties Extremities Exam: Moderate Edema (Left arm and hand swelling.) Extremeties Remarks upper extremity (Kathleen Olguin) Neurologic Neuro Exam: Alert, Awake (Kathleen Olguin) Assessment/Plan Discussed Condition With: Spouse Assessment Summary: End Stage Renal Disease Problem List: (1) ESRD (end stage renal disease) on dialysis ICD Codes: N18.6 - End stage renal disease; Z99.2 - Dependence on renal dialysis Plan: Dialysis MWF s/p LUE AVF ligation for hand ischemia Antibiotics per ID ESBL noted in urine on isolation Epogen with dialysis Ongoing confusion some improvement noted- continue to monitor. HD yesterday 2.5 liters removed Dialysis for tomorrow (2) Gangrene of finger of left hand ICD Codes: I96 - Gangrene, not elsewhere classified Plan: necrotic area on left hand middle finger (3) AV fistula occlusion ICD Codes: T82.898A - Other specified complication of vascular prosthetic devices, implants and grafts, initial encounter Plan: s/p L UE bypass 2/6 ligation of AVF and DRIL (4) Diabetes mellitus ICD Codes: E11.9 - Type 2 diabetes mellitus without complications Plan: Maintain BS between 140mg/dl to 180 mg/dl (Kathleen Olguin) Problem List: (1) ESRD (end stage renal disease) on dialysis ICD Codes: N18.6 - End stage renal disease; Z99.2 - Dependence on renal dialysis Plan: Dialysis MWF s/p LUE AVF ligation for hand ischemia Antibiotics per ID ESBL noted in urine on isolation Epogen with dialysis Ongoing confusion some improvement noted- continue to monitor. HD yesterday 2.5 liters removed Dialysis for tomorrow. Patient seen and examined, agree with above. Clinically same, with some improvement in Encephalopathy. (2) Gangrene of finger of left hand ICD Codes: I96 - Gangrene, not elsewhere classified Plan: necrotic area on left hand middle finger (3) AV fistula occlusion ICD Codes: T82.898A - Other specified complication of vascular prosthetic devices, implants and grafts, initial encounter Plan: s/p L UE bypass 2/6 ligation of AVF and DRIL (4) Diabetes mellitus ICD Codes: E11.9 - Type 2 diabetes mellitus without complications Plan: Maintain BS between 140mg/dl to 180 mg/dl (Kim Santos MD) Kathleen Olguin Dec 11, 2017 16:24 Kim Santos MD Dec 11, 2017 18:54
[2017-12-11] MEDS: MEGESTROL ACETATE SUSP 400 MG/10 ML CUP PO SCH (18:20)
[2017-12-11] MEDS: CARVEDILOL 3.125 MG TAB PO SCH (20:26)
[2017-12-12] VITALS (24 sets, daily range): BP systolic 116–162; BP diastolic 52–72; PULSE 70–97; RESP 22–44; TEMP 96.8–98.9; O2SAT 88–100
[2017-12-12] MEDS: RESP: ALBUTEROL 2.5 MG/IPRATROPIUM 0.5 MG NEB (SCH) NEB ×4 (03:23→19:53)
[2017-12-12] MEDS: PIPERACIL-TAZO 2.25 GM PREMIX 50 ML IV SCH ×3 (05:24→21:41)
[2017-12-12] MEDS: MEGESTROL ACETATE SUSP 400 MG/10 ML CUP PO SCH (08:20)
[2017-12-12] MEDS: ASPIRIN EC 81 MG TABEC PO SCH (08:20)
[2017-12-12] MEDS: SODIUM CHLORIDE 0.9% FLUSH 10 ML FLUSH IV FLUSH SCH ×2 (08:21→21:41)
[2017-12-12] MEDS: INSULIN ASPART SUPPLEMENTAL SCALE SQ SCH ×4 (08:21→21:42)
[2017-12-12] MEDS: CLOPIDOGREL 75 MG TAB PO SCH (08:21)
[2017-12-12] MEDS: THYROID 60 MG TAB PO SCH ×2 (08:21→21:41)
[2017-12-12] MEDS: HEPARIN SODIUM - SQ 10,000 UNITS/ML VIAL SQ SCH ×2 (08:21→21:41)
[2017-12-12] MEDS: CALCIUM ACETATE 667 MG CAP PO SCH ×3 (08:21→17:41)
[2017-12-12] MEDS: CARVEDILOL 3.125 MG TAB PO SCH ×2 (08:21→21:41)
[2017-12-12] MEDS: PANTOPRAZOLE SOD 40 MG DELAYED RELEASE TAB PO SCH (08:22)
[2017-12-12] MEDS: NYSTATIN 100,000 UNIT/GM CREAM 15 GM TOPICAL SCH ×2 (08:22→21:42)
[2017-12-12] MEDS: BACITRACIN TOP OINT 15 GM TUBE TOPICAL SCH ×2 (08:22→21:41)
[2017-12-12] MEDS: HEPARIN SODIUM - IV 10,000 UNITS/10 ML VIAL PRN (08:43)
[2017-12-12] MEDS: GENTAMICIN SULFATE 20 MG/2 ML VIAL OTHER PRN (08:44)
[2017-12-12] MEDS: EPOETIN ALFA 10,000 UNITS/ML VIAL IV PUSH PRN (08:44)
--- NOTE | 2017-12-12 08:59 | HHI.IDPN ---
Subjective Subjective Remarks Patient is a 67-year-old male, has been at [facility] for the last 15 days, transferred to [facility] for vascular evaluation. Patient has known end-stage renal disease and gets hemodialysis every Sunday and Sunday. He had a left upper extremity AV fistula, and it had some problem, so he underwent left upper extremity access revision, left upper extremity distal revascularization and interval ligation, last August 07, 2017. He was discharged, and apparently the fistula was working okay, and during that admission also he had that left middle finger dry gangrene which was felt to be ischemic in nature due to steal syndrome. As an outpatient, his fistula apparently stopped working, so he had a permacath placed in his right IJ. Patient stated that he's had problem on and off with low blood pressure for the last 4 months. The hypotension were getting worse and he ended up getting admitted at [facility] where he stayed for at least 15 days. During that admission, he had some positive blood culture done on November 05 that grew Enterobacter cloaca. Blood culture from November 07 were negative. His permacath was removed on November 07 and the culture of that was negative. Patient was apparently getting IV cefepime, and there was an infectious disease specialist monitoring him for his infection. Patient stated that he's had some reaction to the cefepime and he describes it as burning sensation. Patient is currently afebrile. There was evaluation of his AV fistula which shows thrombosis of his DRIL. He has now been transferred to [facility] for vascular evaluation. Infectious disease consultation has been requested to evaluate for sepsis. Notes reviewed On nasal O2 Temps ok BP ok Having HD Awake, slow to respond Palliative med notes reviewed Antibiotics Current Medications Medications (Trade) Dose Ordered Sig/Renny Route Start Time Stop Time Status Last Admin (NS Flush) 2 ml BID IV FLUSH 11/12/17 21:00 12/12/17 08:21 (Zofran Inj) 4 mg Q6H PRN IVP 11/12/17 20:00 (Narcan Inj) 0.4 mg UNSCH PRN IV PUSH 11/12/17 20:00 (D50w (Vial) Inj) 50 ml UNSCH PRN IV PUSH 11/12/17 23:30 (Glucagon Inj) 1 mg UNSCH PRN OTHER 11/12/17 23:30 (Phoslo) 667 mg TID PO 11/13/17 09:00 12/12/17 08:21 (Ecotrin Ec) 162 mg DAILY PO 11/13/17 09:00 12/12/17 08:20 (Plavix) 75 mg DAILY PO 11/13/17 09:00 Future hold 12/12/17 08:21 (Baciguent Oint) 1 applic Q12HR TOPICAL 11/13/17 21:00 12/12/17 08:22 Sodium Chloride 1,000 ml @ 0 mls/hr Q0M PRN OTHER 11/13/17 14:09 12/03/17 18:45 (Heparin Inj) 8,000 units UNSCH PRN IV FLUSH 11/13/17 14:15 11/15/17 15:23 Sodium Chloride 1,000 ml @ 200 mls/hr Q5H PRN IV 11/13/17 14:09 11/26/17 07:15 Sodium Chloride 1,000 ml @ 0 mls/hr Q0M PRN OTHER 11/13/17 14:09 (Mannitol Inj) 12.5 gm UNSCH PRN IV 11/13/17 14:15 11/17/17 11:53 Albumin Human 100 ml @ 60 mls/hr UNSCH PRN IV 11/13/17 14:15 12/03/17 18:46 (NS Flush) 5 ml UNSCH PRN IV FLUSH 11/13/17 14:15 12/03/17 18:46 (Heparin Inj) UNSCH PRN .XX 11/13/17 14:15 12/12/17 08:43 (Gentamicin Inj) 20 mg UNSCH PRN OTHER 11/13/17 14:15 12/12/17 08:44 (Zofran Inj) 4 mg UNSCH PRN IV PUSH 11/13/17 14:15 (Tylenol) 650 mg UNSCH PRN PO 11/13/17 14:15 11/18/17 08:40 (Benadryl) 25 mg UNSCH PRN PO 11/13/17 14:15 (Nitrostat Sl) 0.4 mg UNSCH PRN SL 11/13/17 14:15 (Catapres) 0.1 mg UNSCH PRN PO 11/13/17 14:15 (Epogen Inj) 4,000 units UNSCH PRN IV PUSH 11/13/17 14:15 12/12/17 08:44 (Gelfoam 12 Mm/7 Mm Top) 1 foam UNSCH PRN TOP 11/13/17 14:15 (Coreg) 3.125 mg BID PO 11/16/17 21:00 Future hold 12/12/17 08:21 (Neurontin) 100 mg TID PO 11/20/17 18:00 Future Hold 11/25/17 18:34 ([place] Thyroid) 60 mg BID PO 11/20/17 21:00 12/12/17 08:21 (Roxicodone) 5 mg Q4H PRN PO 11/20/17 15:15 (Marleny-Colace) 1 tab BID PO 11/20/17 21:00 12/11/17 09:13 (Milk Of Magnesia Liq) 30 ml Q12H PRN PO 11/20/17 15:15 (Senokot) 17.2 mg Q12H PRN PO 11/20/17 15:15 12/05/17 09:54 (Dulcolax Supp) 10 mg DAILY PRN RECTAL 11/20/17 15:15 (Lactulose Liq) 30 ml DAILY PRN PO 11/20/17 15:15 (NS Flush) 5 ml UNSCH PRN IV FLUSH 11/20/17 17:45 (Heparin Inj) 2,000 units UNSCH PRN IV FLUSH 11/20/17 17:45 12/10/17 09:26 (Mycostatin Cream) 1 applic Q12HR TOPICAL 11/24/17 14:00 12/12/17 08:22 (Heparin Inj) 5,000 units Q12HR SQ 11/26/17 21:00 12/12/17 08:21 Piperacillin Sod/ Tazobactam Sod 50 ml @ 100 mls/hr Q8H IV 12/03/17 14:00 12/13/17 23:00 12/12/17 05:24 (Brethine Inj) 1 mg UNSCH PRN SQ 12/04/17 09:15 (Duoneb Neb) 1 ampule Q6HR NEB NEB 12/08/17 22:00 12/12/17 08:52 (Albuterol Neb) 2.5 mg Q2HR NEB PRN NEB 12/08/17 20:30 (Protonix) 40 mg DAILY PO 12/09/17 09:00 12/12/17 08:22 (NovoLOG SUPPLEMENTAL SCALE) 1 ACHS SQ 12/09/17 17:00 12/12/17 08:21 (Tylenol 650 Mg/ 20 ml Liq) 650 mg Q6H PRN PO 12/09/17 15:45 (Megace Liq) 400 mg DAILY PO 12/11/17 15:15 12/12/17 08:20 Lines Permacath site ok. Past Medical History ESRD DM CAD HF. HTN Enlarged liver, and ascites Past Surgical History Pacemaker CABGx4 with mitral valvuloplasty in february 2005 Right fifth toe amputation Right shoulder rotator cuff repair Has had repeated paracentesis to drain his ascites Allergies: Coded Allergies: adhesive (Unverified Adverse Reaction, Severe, SKIN BREAKDOWN/ULCERS, ) Uncoded Allergies: MSG (Allergy, Intermediate, bowel problems, 08/02/17) Objective . Vital Signs Date Time Temp Pulse Resp B/P (MAP) Pulse Ox O2 Delivery O2 Flow Rate FiO2 12/12/17 08:52 100 Nasal Cannula 2.00 12/12/17 06:00 95 12/12/17 04:00 98.9 97 29 150/65 (93) 100 12/12/17 04:00 97 12/12/17 02:00 93 12/12/17 00:00 72 12/12/17 00:00 96.8 72 32 155/70 (98) 100 12/11/17 22:00 71 12/11/17 21:29 100 Nasal Cannula 2.00 12/11/17 20:00 73 12/11/17 20:00 97.1 73 25 135/63 (87) 96 12/11/17 19:08 71 12/11/17 19:00 72 12/11/17 18:01 71 12/11/17 18:00 71 12/11/17 16:01 71 12/11/17 16:01 98.1 71 22 166/70 (102) 100 12/11/17 16:00 71 21 100 12/11/17 16:00 71 12/11/17 15:39 100 Nasal Cannula 2.00 12/11/17 14:01 78 12/11/17 14:00 93 12/11/17 13:16 80 12/11/17 13:00 93 12/11/17 13:00 93 21 178/77 (110) 100 12/11/17 12:53 72 12/11/17 12:53 72 21 162/67 (98) 100 12/11/17 12:45 81 12/11/17 12:45 81 24 187/76 (113) 100 12/11/17 12:31 83 12/11/17 12:31 83 21 172/74 (106) 100 12/11/17 12:15 70 18 171/74 (106) 100 12/11/17 12:15 70 12/11/17 12:00 98.2 70 21 163/69 (100) 100 12/11/17 12:00 70 12/11/17 10:15 71 21 171/73 (105) 100 12/11/17 10:15 71 12/11/17 10:00 71 12/11/17 10:00 71 21 172/74 (106) 12/11/17 09:45 90 12/11/17 09:45 90 24 179/76 (110) 12/11/17 09:31 95 21 178/77 (110) 94 12/11/17 09:31 95 12/11/17 09:16 90 24 161/76 (104) 98 12/11/17 09:16 90 12/11/17 09:08 83 12/11/17 09:08 83 22 168/72 (104) 96 12/11/17 09:00 95 33 78 12/11/17 09:00 95 . Laboratory Tests Test 12/11/17 03:15 White Blood Count 15.2 TH/MM3 Red Blood Count 2.99 MIL/MM3 Hemoglobin 8.9 GM/DL Hematocrit 28.4 % Mean Corpuscular Volume 95.1 FL Mean Corpuscular Hemoglobin 29.8 PG Mean Corpuscular Hemoglobin Concent 31.4 % Red Cell Distribution Width 17.8 % Platelet Count 257 TH/MM3 Mean Platelet Volume 10.0 FL Neutrophils (%) (Auto) 80.6 % Lymphocytes (%) (Auto) 5.0 % Monocytes (%) (Auto) 13.6 % Eosinophils (%) (Auto) 0.5 % Basophils (%) (Auto) 0.3 % Neutrophils # (Auto) 12.3 TH/MM3 Lymphocytes # (Auto) 0.8 TH/MM3 Monocytes # (Auto) 2.1 TH/MM3 Eosinophils # (Auto) 0.1 TH/MM3 Basophils # (Auto) 0.0 TH/MM3 CBC Comment DIFF FINAL Differential Comment Laboratory Tests Test 12/11/17 03:15 Blood Urea Nitrogen 35 MG/DL Creatinine 4.38 MG/DL Random Glucose 99 MG/DL Calcium Level 9.2 MG/DL Sodium Level 139 MEQ/L Potassium Level 4.3 MEQ/L Chloride Level 101 MEQ/L Carbon Dioxide Level 26.4 MEQ/L Anion Gap 12 MEQ/L Estimat Glomerular Filtration Rate 14 ML/MIN Imaging Chest X-Ray 12/04/17 0000 Signed Impressions: Service Date/Time: Monday, December 04, 2017 11:09 - CONCLUSION: 1. Uncomplicated line placement. No evidence of pneumothorax. James Mike MD Head CT 11/30/17 0000 Signed Impressions: Service Date/Time: Thursday, November 30, 2017 22:05 - CONCLUSION: 1. No acute findings. No significant change. Uzair Berrios MD Abdomen X-Ray 11/29/17 0000 Signed Impressions: Service Date/Time: November 16:03 - CONCLUSION: NG tube tip extends into the duodenum Sami Burnett MD Cyst Biopsy Asp-Paracentesis US 11/22/17 0000 Signed Impressions: Service Date/Time: November 15:20 - CONCLUSION: Uncomplicated ultrasound guided paracentesis. 6 L of chylous appearing fluid was removed. Taj Oden MD Catheter Placement X-Ray 11/21/17 1554 Signed Impressions: Service Date/Time: Tuesday, November 21, 2017 11:42 - CONCLUSION: Uncomplicated PermaCath placement as above. James Mike MD Lower Extremity Ultrasound 11/13/17 0000 Signed Impressions: Service Date/Time: Monday, November 13, 2017 07:52 - CONCLUSION: No DVT seen in either leg. Jewel Kaiser MD Hand X-Ray 11/13/17 0000 Signed Impressions: Service Date/Time: Monday, November 13, 2017 10:18 - CONCLUSION: Osteoporosis. Extensive arterial calcifications. 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 No definite evidence of bony destruction or osteomyelitis Jared Upton MD Physical Exam GENERAL: Awake and alert, following commands, NAD. Slow to respond SKIN: Cool and dry. No rash. Edematous EYES: Kinde conjunctiva. No petechia or hemorrhage. No scleral icterus. EARS, NOSE AND THROAT: Moist mucosa, no nasal discharge NECK: Trachea midline, supple and not tender CARDIOVASCULAR: Regular rate and rhythm. Has systolic murmur over L precordium and base of the heart RESPIRATORY: Decreased at both bases, coarse BS ABDOMEN: Soft, and bowel sounds present and hypoactive. No reaction to palpation. EXTREMITIES: No clubbing, cyanosis. Has edema of both feet and UE. Dry gangrene noted. Incision LUE dry, no redness NEUROLOGICAL: awake and following commands LINES: No evidence of infection Assessment & Plan Remarks IMPRESSION Klebsiella MDR PNA, finishing Rx Respiratory failure, extubated Possible new sepsis, had fevers last 24 hours, due to PNA Septic Thrombophlebitis: Enterobacter, completing Rx Enterobacter bacteremia, BC 11/05 (+), ?source - permacath C/S negative (?due to previous Abx) - concern with infected thrombus LUE AVF - completing Rx Thrombosis DRIL LUE AVF S/P Bypass LUE and ligation of AVF and DRIL ESRD on HD MWF Ascites, ?primary liver problem or other etiology LMF dry gangrene Encephalopathy, ?metabolic RECOMMENDATION Continue Zosyn - to finish today Follow temps Monitor off Abx Monitor progress Patient DNR status Palliative medicine following Nothing new to add Please call if with any new ID issue or question Loraine Martinez MD Dec 12, 2017 08:59
[2017-12-12] MEDS: DOCUSATE SODIUM 50 MG/SENNA 8.6 MG TAB PO SCH ×2 (09:00→20:03)
[2017-12-12] MEDS ORDERED: DOXAZOSIN MESYLATE 2 MG TAB PO SCH (09:00)
--- NOTE | 2017-12-12 09:24 | HHI.NPPN ---
Subjective History of Present Illness Patient is a 67-year-old male with a history of end-stage renal disease on hemodialysis Sunday/Sunday/ Sunday, diabetes, CAD, CHF, hypertension was transferred from [facility] to be evaluated by vascular surgery. Patient states he was admitted to [facility] because he had low blood pressure readings at home. AV fistula has not been functioning or used for 6- 8 weeks and they have been using a permacath for dialysis. Permacath has been removed secondary to possible infection and vas cath has been placed. He has been treated with cefepime IV. Last dialysis was Sunday and 1.5 L removed. Patient has a necrotic left middle finger that patient states has been going on for the last 12 weeks. Additional Remarks Patient resting comfortably, no acute problems noted. Mental status improving (Kathleen Olguin) Review of Systems Genitourinary Remarks (Kathleen Olguin) Objective Data Data Vital Signs Date Time Temp Pulse Resp B/P (MAP) Pulse Ox O2 Delivery O2 Flow Rate FiO2 12/12/17 08:52 100 Nasal Cannula 2.00 12/12/17 06:00 95 12/12/17 04:00 98.9 97 29 150/65 (93) 100 12/12/17 04:00 97 12/12/17 02:00 93 12/12/17 00:00 72 12/12/17 00:00 96.8 72 32 155/70 (98) 100 12/11/17 22:00 71 12/11/17 21:29 100 Nasal Cannula 2.00 12/11/17 20:00 73 12/11/17 20:00 97.1 73 25 135/63 (87) 96 12/11/17 19:08 71 12/11/17 19:00 72 12/11/17 18:01 71 12/11/17 18:00 71 12/11/17 16:01 71 12/11/17 16:01 98.1 71 22 166/70 (102) 100 12/11/17 16:00 71 21 100 12/11/17 16:00 71 12/11/17 15:39 100 Nasal Cannula 2.00 12/11/17 14:01 78 12/11/17 14:00 93 12/11/17 13:16 80 12/11/17 13:00 93 12/11/17 13:00 93 21 178/77 (110) 100 12/11/17 12:53 72 12/11/17 12:53 72 21 162/67 (98) 100 12/11/17 12:45 81 12/11/17 12:45 81 24 187/76 (113) 100 12/11/17 12:31 83 12/11/17 12:31 83 21 172/74 (106) 100 12/11/17 12:15 70 18 171/74 (106) 100 12/11/17 12:15 70 12/11/17 12:00 98.2 70 21 163/69 (100) 100 12/11/17 12:00 70 12/11/17 10:15 71 21 171/73 (105) 100 12/11/17 10:15 71 12/11/17 10:00 71 12/11/17 10:00 71 21 172/74 (106) 12/11/17 09:45 90 12/11/17 09:45 90 24 179/76 (110) 12/11/17 09:31 95 21 178/77 (110) 94 12/11/17 09:31 95 12/11/17 09:16 90 24 161/76 (104) 98 12/11/17 09:16 90 (Kathleen Olguin) -: 12/11/17 0315 12/11/17 0315 Tubes & Lines: Perma-Cath (Kathleen Olguin) Physical Exam General Appearance: No Acute Distress, Comfortable (Kathleen Olguin) Eyes Eye Exam: Pupils Equal (Kathleen Olguin) Throat Throat Exam: Oral Mucosa [place] & Moist Throat Remarks NG tube (Kathleen Olguin) Pulmonary Resp Exam: Breath Sounds Equal, No Distress, Decreased Bases (Kathleen Olguin) Cardiology CV Exam: Regular (Kathleen Olguin) Gastrointestinal/Abdomen GI Exam: Soft, Non-Tender, Bowel Sounds Present (Kathleen Olguin) Integumentary Skin Remarks necrotic area on tip on left hand middle finger (Kathleen Olguin) Extremeties Extremities Exam: Moderate Edema (Left arm and hand swelling.) Extremeties Remarks upper extremity (Kathleen Olguin) Neurologic Neuro Exam: Alert, Awake (Kathleen Olguin) Assessment/Plan Discussed Condition With: Spouse Assessment Summary: End Stage Renal Disease Problem List: (1) ESRD (end stage renal disease) on dialysis ICD Codes: N18.6 - End stage renal disease; Z99.2 - Dependence on renal dialysis Plan: Dialysis MWF s/p LUE AVF ligation for hand ischemia Permacath in right chest wall Mental status improving daily HGB 8.9 Epogen with dialysis Potassium WNL Continue Phoslo will recheck PO4 tomorrow and if continues to trend low will discontinue phoslo Poor appetite started on Megace Patient seen during dialysis (2) Gangrene of finger of left hand ICD Codes: I96 - Gangrene, not elsewhere classified Plan: necrotic area on left hand middle finger (3) AV fistula occlusion ICD Codes: T82.898A - Other specified complication of vascular prosthetic devices, implants and grafts, initial encounter Plan: s/p L UE bypass 2/6 ligation of AVF and DRIL (4) Diabetes mellitus ICD Codes: E11.9 - Type 2 diabetes mellitus without complications Plan: Maintain BS between 140mg/dl to 180 mg/dl (Kathleen Olguin) Problem List: (1) ESRD (end stage renal disease) on dialysis ICD Codes: N18.6 - End stage renal disease; Z99.2 - Dependence on renal dialysis Plan: Dialysis MWF s/p LUE AVF ligation for hand ischemia Permacath in right chest wall Mental status improving daily HGB 8.9 Epogen with dialysis Potassium WNL Continue Phoslo will recheck PO4 tomorrow and if continues to trend low will discontinue phoslo Poor appetite started on Megace Patient seen during dialysis. Patient seen and examined, agree with above. Remove fluid as tolerated. (2) Gangrene of finger of left hand ICD Codes: I96 - Gangrene, not elsewhere classified Plan: necrotic area on left hand middle finger (3) AV fistula occlusion ICD Codes: T82.898A - Other specified complication of vascular prosthetic devices, implants and grafts, initial encounter Plan: s/p L UE bypass 2/6 ligation of AVF and DRIL (4) Diabetes mellitus ICD Codes: E11.9 - Type 2 diabetes mellitus without complications Plan: Maintain BS between 140mg/dl to 180 mg/dl (Kim Santos MD) Kathleen Olguin Dec 12, 2017 09:24 Kim Santos MD Dec 12, 2017 19:13
--- NOTE | 2017-12-12 12:14 | HHI.HCPN ---
Reason for visit a. To assist with evaluation and management of symptoms including: Pain, shortness of breath, debility. b. To assist medical decision maker(s) with: better understanding of current medical conditions; weighing benefits/burdens of medical treatment options; making medical treatment decisions. . Subjective/Interval History Palliative care follow-up for further clarifications of goals of care. Patient seen in medical ICU, s/p medical extubation on 12/06/16. Continue tolerating O2 via nasal cannula 2 L. Patient alert to self, verbal but cannot always communicate needs. Disoriented as to place time and situation. Patient intermittently falling asleep during my visit. Reports no pain or discomfort during my visit. No family at bedside. Patient underwent hemodialysis today, 2.7L removed. Speech therapy following, patient on pured diet and thin liquids. Decreased oral intake reported. Eating between 25-50% of his meals for the past 2 days. [employer] following, nephro added 3 times daily. Megace 400 mg daily added yesterday. Patient remains afebrile. Hypertensive with SBP in the 150s. Laboratory workup today revealed WBC 15.2, stable Hgb at 8.9. BUN/creatinine 35/4.38. No new imaging for review. Case discussed with bedside RN Kaykay. Telephone call to patient's , left message on voicemail. Palliative care to follow-up. . Family/friend interactions See interval note. . Advance Directives Living Will: Copy in medical record Health Care Surrogate: Copy in medical record Advance Directive Specifics Date completed: 12/05/2013. . Health Care Surrogate(s): Patient designated her son Derrick Hernandez as surrogate decision maker, alternate surrogate is Jeanine and son Iván. . Documented care wishes: Living will with standard verbiage as it pertains to terminal condition, end- stage condition or persistent vegetative state. . Significant change in goals: Goals of therapy remain aggressive short of NO code. . Objective Vital Signs Date Time Temp Pulse Resp B/P (MAP) Pulse Ox O2 Delivery O2 Flow Rate FiO2 12/12/17 08:52 100 Nasal Cannula 2.00 12/12/17 06:00 95 12/12/17 04:00 98.9 97 29 150/65 (93) 100 12/12/17 04:00 97 12/12/17 02:00 93 12/12/17 00:00 72 12/12/17 00:00 96.8 72 32 155/70 (98) 100 12/11/17 22:00 71 12/11/17 21:29 100 Nasal Cannula 2.00 12/11/17 20:00 73 12/11/17 20:00 97.1 73 25 135/63 (87) 96 12/11/17 19:08 71 12/11/17 19:00 72 12/11/17 18:01 71 12/11/17 18:00 71 12/11/17 16:01 71 12/11/17 16:01 98.1 71 22 166/70 (102) 100 12/11/17 16:00 71 21 100 12/11/17 16:00 71 12/11/17 15:39 100 Nasal Cannula 2.00 12/11/17 14:01 78 12/11/17 14:00 93 12/11/17 13:16 80 12/11/17 13:00 93 12/11/17 13:00 93 21 178/77 (110) 100 12/11/17 12:53 72 12/11/17 12:53 72 21 162/67 (98) 100 12/11/17 12:45 81 12/11/17 12:45 81 24 187/76 (113) 100 12/11/17 12:31 83 12/11/17 12:31 83 21 172/74 (106) 100 12/11/17 12:15 70 18 171/74 (106) 100 12/11/17 12:15 70 Intake & Output 12/12/17 12/12/17 07:00 19:00 Intake Total 340 ml Output Total 2700 ml Balance 340 ml -2700 ml Oral Supplement 240 ml IV Total 100 ml Hemodialysis 2700 ml # Bowel Movements 1 Physical Exam CONSTITUTIONAL/GENERAL: This is an adequately nourished patient, in no apparent distress. TUBES/LINES/DRAINS: Nasal cannula, right Vas-Cath, Reese catheter, SCDs. SKIN: No jaundice, rashes, or lesions. Ecchymoses on upper extremities. Skin temperature appropriate. Not diaphoretic. multiple necrotic digits bilaterally. HEAD: Atraumatic. Normocephalic. EYES: Pupils equal and round and reactive. No scleral icterus. No injection or drainage. ENT: Hearing grossly normal. Nose without bleeding or purulent drainage. Moist oral mucosa. NECK: Trachea midline. Supple, nontender. CARDIOVASCULAR: Regular rate and rhythm. Peripheral pedal pulses symmetric. Venous stasis changes to bilateral lower extremities. RESPIRATORY/CHEST: Symmetric, unlabored respirations. Coarse breath sounds bilaterally. Tolerating O2 via nasal cannula. GASTROINTESTINAL: Abdomen obese, large, round. Bowel sounds present. GENITOURINARY: Without palpable bladder distension. Reese catheter in place. MUSCULOSKELETAL: Extremities without clubbing. Weeping edema to bilateral upper extremities, right more than left. NEUROLOGICAL: Awake, alert x self. Disoriented as to place, place and situation. Following sleep during my visit. Intermittently following commands. PSYCHIATRIC: Calm. . Diagnostic Tests Laboratory Laboratory Tests Test 12/10/17 03:30 12/11/17 03:15 White Blood Count 14.8 TH/MM3 (4.0-11.0) 15.2 TH/MM3 (4.0-11.0) Red Blood Count 2.99 MIL/MM3 (4.50-5.90) 2.99 MIL/MM3 (4.50-5.90) Hemoglobin 8.8 GM/DL (13.0-17.0) 8.9 GM/DL (13.0-17.0) Hematocrit 28.3 % (39.0-51.0) 28.4 % (39.0-51.0) Mean Corpuscular Volume 94.6 FL (80.0-100.0) 95.1 FL (80.0-100.0) Mean Corpuscular Hemoglobin 29.5 PG (27.0-34.0) 29.8 PG (27.0-34.0) Mean Corpuscular Hemoglobin Concent 31.1 % (32.0-36.0) 31.4 % (32.0-36.0) Red Cell Distribution Width 17.4 % (11.6-17.2) 17.8 % (11.6-17.2) Platelet Count 236 TH/MM3 (150-450) 257 TH/MM3 (150-450) Mean Platelet Volume 10.2 FL (7.0-11.0) 10.0 FL (7.0-11.0) Neutrophils (%) (Auto) 78.6 % (16.0-70.0) 80.6 % (16.0-70.0) Lymphocytes (%) (Auto) 5.3 % (9.0-44.0) 5.0 % (9.0-44.0) Monocytes (%) (Auto) 15.5 % (0.0-8.0) 13.6 % (0.0-8.0) Eosinophils (%) (Auto) 0.4 % (0.0-4.0) 0.5 % (0.0-4.0) Basophils (%) (Auto) 0.2 % (0.0-2.0) 0.3 % (0.0-2.0) Neutrophils # (Auto) 11.6 TH/MM3 (1.8-7.7) 12.3 TH/MM3 (1.8-7.7) Lymphocytes # (Auto) 0.8 TH/MM3 (1.0-4.8) 0.8 TH/MM3 (1.0-4.8) Monocytes # (Auto) 2.3 TH/MM3 (0-0.9) 2.1 TH/MM3 (0-0.9) Eosinophils # (Auto) 0.1 TH/MM3 (0-0.4) 0.1 TH/MM3 (0-0.4) Basophils # (Auto) 0.0 TH/MM3 (0-0.2) 0.0 TH/MM3 (0-0.2) CBC Comment AUTO DIFF DIFF FINAL Differential Comment AUTO DIFF CONFIRMED Platelet Estimate NORMAL (NORMAL) Platelet Morphology Comment ENLARGED (NORMAL) Basophilic Stippling FAINT (NORMAL) Ovalocytes 1+ (NORMAL) Keratocytes OCC (NORMAL) Blood Urea Nitrogen 48 MG/DL (7-18) 35 MG/DL (7-18) Creatinine 5.54 MG/DL (0.60-1.30) 4.38 MG/DL (0.60-1.30) Random Glucose 132 MG/DL (74-106) 99 MG/DL (74-106) Calcium Level 9.2 MG/DL (8.5-10.1) 9.2 MG/DL (8.5-10.1) Phosphorus Level 2.6 MG/DL (2.5-4.9) Magnesium Level 2.5 MG/DL (1.5-2.5) Sodium Level 141 MEQ/L (136-145) 139 MEQ/L (136-145) Potassium Level 4.0 MEQ/L (3.5-5.1) 4.3 MEQ/L (3.5-5.1) Chloride Level 100 MEQ/L (98-107) 101 MEQ/L (98-107) Carbon Dioxide Level 29.1 MEQ/L (21.0-32.0) 26.4 MEQ/L (21.0-32.0) Anion Gap 12 MEQ/L (5-15) 12 MEQ/L (5-15) Estimat Glomerular Filtration Rate 10 ML/MIN (>89) 14 ML/MIN (>89) Result Diagram: 12/11/1731412/11/17314 Procedures * 11/20/17: Left brachial-brachial bypass using vein with interposition graft * 11/21/17: Permacath placement. * 11/20/17: Endotracheal intubation. * 11/22/17: Paracenteses, 6 L removed. * 11/24/17: Medical extubation * 12/03/17: Reintubation * 12/06/17: Medical extubation . Assessment and Plan Disease Oriented Problem List: (1) Sepsis (2) Acute respiratory failure (3) Metabolic encephalopathy (4) ESRD (end stage renal disease) on dialysis (5) Gangrene of finger of left hand Symptom Scale: (1) Pain 0-10 Scale: Unable to quantify Pertinent Non-Medical Issues Psychosocial: Patient is originally from [place]. Moved to [place] 28 years ago. Currently for the past 34 years. Has a total of 4 children, 2 with current . 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 Spiritual: [employer] natalia. Legal: Advance directives completed. Ethical issues impacting care: No ethical issues identified. . Important Contacts Son Derrick/[facility] Patient's Jeanine Son Iván . Prognosis Mr. Hernandez is a 67-year-old male with a medical history significant for end- stage renal disease on hemodialysis, CAD status post CABG in 2004, CHF, hypertension, diabetes mellitus. Patient was transferred from [facility] to be evaluated by vascular surgery secondary to occluded left AV fistula at the proximal anastomosis as well as ischemic digits. Clinical course complicated by septic bacteremia, respiratory failure requiring intubation and mechanical ventilation, severe metabolic encephalopathy and hypotension. Patient at a very high risk for further complications, continue decline and . Overall prognosis is guarded at this time. . Code Status: No Code Plan * CODE STATUS: No code. DNR/DNI. * HEALTHCARE DECISION-MAKING: Patient unable at this time to participating in medical decision-making secondary to clinical condition, encephalopathy. However, improving. Advanced directives completed, patient has elected her son Derrick as healthcare surrogate decision maker, alternate surrogate is his Jeanine AND son Iván. * GOALS OF CARE: Goals of therapy remain unchanged, aggressive management short of NO code -DNR/DNI. Concerns regarding patient progressive decline and poor oral intake has been discussed with family. Reviewed with feeding options , reports that temporary NG tube for feeding has been discussed. However, she wishes to allow a few more days for clinical improvement. Family aware that patient remains at a very high risk for further complications, continued decline and . Hospice philosophy and benefits reviewed at length. Family receptive to hospice should patient's clinical condition worsen or additional decline. * SYMPTOMS: = Pain, secondary to multiple interventions, lines, necrotic digits , prolonged hospitalization. Oxycodone 5 mg available as needed. None given in the past 24 hours, patient appears comfortable. No recommendations at this time. = Shortness of breath: Patient s/p med extubation. Tolerating O2 via nasal cannula. * Case discussed with bedside RN. * Palliative care contact information has been provided to patient's family. * Palliative care will continue to follow-up for further clarifications of goals of care as patient's clinical course continues to evolve. Family receptive to this. . Time Spent Total Floor Time (mins): 24 (Total time to include review medical records, physical exam, case discussion with bedside RN, telephone call the patient's .) >50% Counseling/Coord of Care: Yes Attestation To help prompt me to consider important information that might be impacting today's encounter and assessment, information from prior notes written by myself or my colleagues may have been "brought forward" into today's note. My signature on this note, however, is an attestation that I personally performed the exam, history, and/or decision-making noted today, and, unless otherwise indicated, the interactions with patient, family, and staff as well as the review of records all occurred today. I also attest that the listed assessment and stated plan reflect my best clinical judgment today based on the combination of historical information, prior notes, and today's exam/ interactions. When time spent is documented, it refers only to time spent today by the signer, or if indicated, combined time spent today by collaborating physician/nurse practitioner. Lisa Saha Dec 12, 2017 12:14
--- NOTE | 2017-12-12 17:11 | HHI.PR ---
Subjective Remarks The patient denies chest pain or shortness of breath, states feels much better. Patient's was at bedside states that the patient ate all his lunch and appetite is much improved. Afebrile. Blood pressure is improving. Objective Vitals Vital Signs Date Time Temp Pulse Resp B/P (MAP) Pulse Ox O2 Delivery O2 Flow Rate FiO2 12/12/17 15:00 70 12/12/17 15:00 70 35 90 12/12/17 14:00 70 12/12/17 14:00 70 33 99 12/12/17 13:00 70 12/12/17 13:00 70 27 123/52 (75) 100 12/12/17 12:00 72 12/12/17 12:00 97.7 72 27 92 12/12/17 11:30 72 24 122/61 (81) 100 12/12/17 11:00 72 23 116/55 (75) 100 12/12/17 11:00 72 12/12/17 10:30 73 23 121/58 (79) 97 12/12/17 10:00 73 25 125/53 (77) 95 12/12/17 10:00 73 12/12/17 09:30 73 40 135/57 (83) 94 12/12/17 09:00 73 12/12/17 09:00 73 22 154/65 (94) 100 12/12/17 08:52 100 Nasal Cannula 2.00 12/12/17 08:30 72 41 159/67 (97) 100 12/12/17 08:00 71 12/12/17 08:00 97.8 71 36 154/66 (95) 100 12/12/17 07:00 73 12/12/17 07:00 71 42 162/72 (102) 100 12/12/17 06:00 95 12/12/17 04:00 98.9 97 29 150/65 (93) 100 12/12/17 04:00 97 12/12/17 02:00 93 12/12/17 00:00 72 12/12/17 00:00 96.8 72 32 155/70 (98) 100 12/11/17 22:00 71 12/11/17 21:29 100 Nasal Cannula 2.00 12/11/17 20:00 73 12/11/17 20:00 97.1 73 25 135/63 (87) 96 2/27/18 19:08 71 12/11/17 19:00 72 12/11/17 18:01 71 12/11/17 18:00 71 I/O 12/11/17 12/11/17 12/11/17 12/12/17 12/12/17 12/12/17 07:00 15:00 23:00 07:00 15:00 23:00 Intake Total 60 ml 50 ml 520 ml 290 ml 50 ml Output Total 0 ml 0 ml 2700 ml Balance 60 ml 50 ml 520 ml 290 ml -2700 ml 50 ml Intake Oral 60 ml 420 ml Oral Supplement 240 ml IV Total 50 ml 100 ml 50 ml 50 ml Output Urine Total 0 ml 0 ml Hemodialysis 2700 ml # Bowel Movements 2 1 1 Result Diagram: 12/11/1731412/11/17314 Objective Remarks GENERAL: sitting up on edge of bed. Appears comfortable. again, no change on exam. SKIN: Warm and dry. HEAD: Normocephalic. EYES: No scleral icterus. No injection or drainage. NECK: Supple, trachea midline. No JVD. CARDIOVASCULAR: Regular rate and rhythm without murmurs, gallops, or rubs. RESPIRATORY: Breath sounds equal bilaterally. No accessory muscle use. GASTROINTESTINAL: Abdomen soft, non-tender, nondistended. MUSCULOSKELETAL: No cyanosis, or edema. patient does have dry gangrene of left third finger. No erythema proximally. BACK: Nontender without obvious deformity. No CVA tenderness. Procedures 11/20 Sp LUE angiogram. 11/21 permacath placement A/P Problem List: (1) AV fistula occlusion ICD Code: T82.898A - Other specified complication of vascular prosthetic devices, implants and grafts, initial encounter (2) ESRD (end stage renal disease) on dialysis ICD Code: N18.6 - End stage renal disease; Z99.2 - Dependence on renal dialysis (3) Diabetes mellitus ICD Code: E11.9 - Type 2 diabetes mellitus without complications Assessment and Plan Metabolic encephalopathy Peripheral neuropathy Use acetaminophen 650 mg by mouth every 6 hours when necessary fever/pain 1-3 oxycodone every 4 hours prn 4-10. - CT brain 11/26 and 11/30 negative - Not candidate for MRI brain due to pacer. Gabapentin 100 mg daily currently on hold. Resume when clinically indicated - Ammonia level 21 on 11/30 -B12 within normal limits - EEG 11/27 - mildly abnormal with mild encephalopathy -EEG 12/03: mod/severe encephalopathy, no ictal activity. Intermittent triphasic (which is c/w metabolic encephalopathy). No sz. Neurology has followed- Dr. Hayden -Suspected metabolic encephalopathy For repeat EEG today Resp: Acute respiratory failure, resolved - Extubated 11/24/17 Reintubated 12/03, extubated 12/06 Remains on NC maintain saturations greater than equal to 90%. Albuterol/ipratropium aerosols every 6 hours with albuterol aerosols every 2 hours. As needed Dyspnea CVS: Hypotension - resolved Bilateral upper extremity ischemia -s/p L UE brachial-brachial bypass and access ligation 11/20/17 Dr. Jansen Uncontrolled hypertension -active - Continue aspirin 162 milligrams daily, clopidogrel bisulfate 75 mg daily. Noted on aspirin 81 mg daily at home - Midodrine 10 mg every 8 hours - cortisol level 16.2 . Previously on dexamethasone 4 mg IV daily to cover for adrenal insufficiency on 12/05. Hypotension responded to therapy, suspected relative adrenal insufficiency. Now hypertension, now on dexamethasone to 2 mg IV daily. Eventually will be transitioned to hydrocortisone and fludrocortisone po with or without cosyntropin stress. Echocardiogram 11/14/17 - The left ventricular systolic function is normal with an estimated ejection fraction in the range of 55-60%. Wall thickness is measured at the upper limits of normal. Normal left ventricular size. The left atrial size is mildly dilated. Mild thickening of the mitral valve leaflets. Trace mitral valve regurgitation. Moderate mitral annular calcification. 12/11 hypotension has resolved and the patient now has uncontrolled hypertension with systolic blood pressure in the 170s. The patient is also medial joint which I will discontinue. Resume Coreg. 12/12 hypertension has now improved and BPs are stable. Continue Coreg. Continue to monitor vital signs. GI: Chronic moderate protein energy malnutrition. Dysphagia Poor appetite -On PO diet per speech - Large-volume ascites removed 11/22/17 - On pantoprazole 40 mg for GI prophylaxis medication -metoclopramide 5mg IV Q8hrly for GI motility on 12/05, d/c'd 12/07. - Docusate sodium/senna 1 tablet twice a day for bowel regimen 12/11 start Megace for poor appetite. Continue management as above. 12/12 appetite is much improved after patient been started on Megace. Continue Renal/FEN/ : End-stage renal disease - Hemodialysis per nephrology Sunday/Sunday. For HD today - R PermCath placement 11/21 by IR. -Monitor renal function, avoid nephrotoxins Seen calcium acetate 6670 g 3 times a day/home medication ID: Septic thrombophlebitis resolved Enterobacter bacteremia, BC 11/05 (+), ?source - permacath C/S negative (?due to previous Abx) - concern with infected thrombus LUE AVF HCAP 12/03 Sputum cx: Kleb pneumonia ESBL Septic shock, resolved Antibiotics per ID, Dr. Martinez: Zosyn 12/03 #7. Plan for minimum 7 day course. Pertinent cultures: 12/03 - blood cultures 2 - no growth 12/03/18 sputum - Klebsiella ESBL 11/24 - cultures 2 - no growth2 11/23 - catheter tip - no growth 11/22 - peritoneal fluid - no growth 11/15 - blood cultures 2 - no growth 11/13 - blood cultures 2 - no growth Heme: Leukocytosis Anemia of chronic kidney disease/normocytic Monitor CBC, on Epogen with HD Endo : Diabetes mellitus Hypothyroidism ?relative adrenal insufficinecy -SSI (Novulog medium scale) with bedside glucose every before meals/at bedtime On Novulin 70/30 12 units twice a day with sliding scale at home On [place] Synthroid 60mg BID, TSH 9.7 on 11/30 free T4 1.06. Free T3 1.57. Dexamethasone 2 mg IV daily as per above. DVT GI prophylaxis SCDs and Subcutaneous heparin 5000 q12 Pantoprazole 40 mg by mouth daily Lines: peripheral IV's. R Permacath 11/21/17 Dr. Mike DNR/DNI. Palliative care following. Patient is currently not capacitated for medical decision-making. Son, Derrick, is his healthcare surrogate [phone]. Per palliative care documentation, hospice has been discussed and family has been receptive to hospice if there is additional decline. Discharge Planning Okay to transfer to the medical floor. Mat Shah MD Dec 12, 2017 17:11
[2017-12-13] VITALS (18 sets, daily range): BP systolic 114–142; BP diastolic 53–61; PULSE 61–75; RESP 22–41; TEMP 97.4–99.3; O2SAT 88–100
[2017-12-13] MEDS: PIPERACIL-TAZO 2.25 GM PREMIX 50 ML IV SCH ×3 (05:17→22:51)
[2017-12-13] MEDS: HEPARIN SODIUM - SQ 10,000 UNITS/ML VIAL SQ SCH ×2 (08:43→20:40)
[2017-12-13] MEDS: CARVEDILOL 3.125 MG TAB PO SCH ×2 (08:43→20:40)
[2017-12-13] MEDS: ASPIRIN EC 81 MG TABEC PO SCH (08:43)
[2017-12-13] MEDS: PANTOPRAZOLE SOD 40 MG DELAYED RELEASE TAB PO SCH (08:43)
[2017-12-13] MEDS: MEGESTROL ACETATE SUSP 400 MG/10 ML CUP PO SCH (08:43)
[2017-12-13] MEDS: CLOPIDOGREL 75 MG TAB PO SCH (08:43)
[2017-12-13] MEDS: THYROID 60 MG TAB PO SCH ×2 (08:43→20:40)
[2017-12-13] MEDS: SODIUM CHLORIDE 0.9% FLUSH 10 ML FLUSH IV FLUSH SCH ×2 (08:44→20:39)
[2017-12-13] MEDS: INSULIN ASPART SUPPLEMENTAL SCALE SQ SCH ×4 (08:44→20:53)
[2017-12-13] MEDS: BACITRACIN TOP OINT 15 GM TUBE TOPICAL SCH ×2 (08:44→20:40)
[2017-12-13] MEDS: DOCUSATE SODIUM 50 MG/SENNA 8.6 MG TAB PO SCH ×2 (08:44→20:40)
[2017-12-13] MEDS: NYSTATIN 100,000 UNIT/GM CREAM 15 GM TOPICAL SCH ×2 (08:45→20:40)
[2017-12-13] MEDS: CALCIUM ACETATE 667 MG CAP PO SCH (08:50)
--- NOTE | 2017-12-13 09:50 | HHI.NPPN ---
Subjective History of Present Illness Patient is a 67-year-old male with a history of end-stage renal disease on hemodialysis Sunday/Sunday/ Sunday, diabetes, CAD, CHF, hypertension was transferred from [facility] to be evaluated by vascular surgery. Patient states he was admitted to [facility] because he had low blood pressure readings at home. AV fistula has not been functioning or used for 6- 8 weeks and they have been using a permacath for dialysis. Permacath has been removed secondary to possible infection and vas cath has been placed. He has been treated with cefepime IV. Last dialysis was Sunday and 1.5 L removed. Patient has a necrotic left middle finger that patient states has been going on for the last 12 weeks. Additional Remarks Patient resting comfortably. No SOB noted. Appetite improving. (Kathleen Olguin) Review of Systems Respiratory Respiratory Remarks No SOB (Kathleen Olguin) Cardiovascular Cardiac Remarks No CP (Kathleen Olguin) Gastrointestinal GI Remarks No abdominal pain (Kathleen Olguin) Genitourinary Remarks (Kathleen Olguin) Objective Data Data Vital Signs Date Time Temp Pulse Resp B/P (MAP) Pulse Ox O2 Delivery O2 Flow Rate FiO2 12/13/17 09:00 70 12/13/17 08:00 98.1 72 35 121/56 (77) 91 12/13/17 08:00 72 12/13/17 07:27 100 Nasal Cannula 2.00 12/13/17 07:00 72 29 123/53 (76) 99 12/13/17 07:00 72 12/13/17 06:00 72 12/13/17 04:00 72 12/13/17 04:00 99.3 72 29 132/57 (82) 100 12/13/17 02:00 75 12/13/17 00:00 73 12/13/17 00:00 97.4 73 41 118/57 (77) 93 12/12/17 22:00 72 12/12/17 20:00 72 12/12/17 20:00 97.9 72 26 136/61 (86) 100 12/12/17 19:55 99 Nasal Cannula 2.00 12/12/17 18:00 73 38 119/53 (75) 88 12/12/17 18:00 72 12/12/17 17:00 72 12/12/17 17:00 72 22 125/57 (79) 94 12/12/17 16:00 72 12/12/17 16:00 97.7 72 44 120/58 (78) 100 12/12/17 15:00 70 12/12/17 15:00 70 35 90 12/12/17 14:00 70 12/12/17 14:00 70 33 99 12/12/17 13:00 70 12/12/17 13:00 70 27 123/52 (75) 100 12/12/17 12:00 72 12/12/17 12:00 97.7 72 27 92 12/12/17 11:30 72 24 122/61 (81) 100 12/12/17 11:00 72 23 116/55 (75) 100 12/12/17 11:00 72 12/12/17 10:30 73 23 121/58 (79) 97 12/12/17 10:00 73 25 125/53 (77) 95 12/12/17 10:00 73 (Kathleen Olguin) -: 12/11/17 0315 12/11/17 0315 Tubes & Lines: Perma-Cath (Kathleen Olguin) Physical Exam General Appearance: No Acute Distress, Comfortable (Kathleen Olguin) Eyes Eye Exam: Pupils Equal (Kathleen Olguin) Throat Throat Exam: Oral Mucosa [place] & Moist Throat Remarks NG tube (Kathleen Olguin) Pulmonary Resp Exam: Breath Sounds Equal, No Distress, Decreased Bases (Kathleen Olguin) Cardiology CV Exam: Regular (Kathleen Olguin) Gastrointestinal/Abdomen GI Exam: Soft, Non-Tender, Bowel Sounds Present (Kathleen Olguin) Integumentary Skin Remarks necrotic area on tip on left hand middle finger (Kathleen Olguin) Extremeties Extremities Exam: Moderate Edema (Left arm and hand swelling.) Extremeties Remarks upper extremity (Kathleen Olguin) Neurologic Neuro Exam: Alert, Awake (Kathleen Olguin) Assessment/Plan Discussed Condition With: Spouse Assessment Summary: End Stage Renal Disease Problem List: (1) ESRD (end stage renal disease) on dialysis ICD Codes: N18.6 - End stage renal disease; Z99.2 - Dependence on renal dialysis Plan: Dialysis MWF s/p LUE AVF ligation for hand ischemia Permacath in right chest wall Mental status improving daily Epogen with dialysis Potassium WNL PO4 1.7 phoslo on hold Appetite improving HD yesterday 2.7 removed. Dialysis tomorrow (2) Gangrene of finger of left hand ICD Codes: I96 - Gangrene, not elsewhere classified Status: Acute Plan: necrotic area on left hand middle finger (3) AV fistula occlusion ICD Codes: T82.898A - Other specified complication of vascular prosthetic devices, implants and grafts, initial encounter Plan: s/p L UE bypass 2/6 ligation of AVF and DRIL (4) Diabetes mellitus ICD Codes: E11.9 - Type 2 diabetes mellitus without complications Status: Chronic Plan: Maintain BS between 140mg/dl to 180 mg/dl (Kathleen Olguin) Problem List: (1) ESRD (end stage renal disease) on dialysis ICD Codes: N18.6 - End stage renal disease; Z99.2 - Dependence on renal dialysis Plan: Dialysis MWF s/p LUE AVF ligation for hand ischemia Permacath in right chest wall Mental status improving daily Epogen with dialysis Potassium WNL PO4 1.7 phoslo on hold Appetite improving HD yesterday 2.7 removed. Dialysis tomorrow. Patient seen and examined, agree with above. If D/C will need confirmation of out patient HD. (2) Gangrene of finger of left hand ICD Codes: I96 - Gangrene, not elsewhere classified Status: Acute Plan: necrotic area on left hand middle finger (3) AV fistula occlusion ICD Codes: T82.898A - Other specified complication of vascular prosthetic devices, implants and grafts, initial encounter Plan: s/p L UE bypass 2/6 ligation of AVF and DRIL (4) Diabetes mellitus ICD Codes: E11.9 - Type 2 diabetes mellitus without complications Status: Chronic Plan: Maintain BS between 140mg/dl to 180 mg/dl (Jumani,Deyanira Kathleen Apple Dec 13, 2017 09:50 Kim Santos MD Dec 13, 2017 21:17
[2017-12-13 12:18] LABS: AUTOMATED NEUTROPHIL # 9.6 TH/MM3 (1.8-7.7); BASOPHIL # 0.1 TH/MM3 (0-0.2); BASOPHIL % 0.5 % (0.0-2.0); EOSINOPHIL # 0.1 TH/MM3 (0-0.4); EOSINOPHIL % 0.9 % (0.0-4.0); HEMATOCRIT 29.6 % (39.0-51.0); HEMOGLOBIN 9.3 GM/DL (13.0-17.0); LYMPH % 5.9 % (9.0-44.0); LYMPHOCYTE # 0.7 TH/MM3 (1.0-4.8); MEAN CELL VOLUME 97.1 FL (80.0-100.0); MEAN CORPUSCULAR HEMOGLOBIN 30.4 PG (27.0-34.0); MEAN CORPUSCULAR HGB CONC 31.3 % (32.0-36.0); MEAN PLATELET VOLUME 10.4 FL (7.0-11.0); MONOCYTE # 0.9 TH/MM3 (0-0.9); NEUT % 84.7 % (16.0-70.0); PLATELET COUNT 228 TH/MM3 (150-450); RED BLOOD COUNT 3.05 MIL/MM3 (4.50-5.90); RED CELL DISTRIBUTION WIDTH 19.8 % (11.6-17.2); WHITE BLOOD COUNT 11.3 TH/MM3 (4.0-11.0)
--- NOTE | 2017-12-13 12:18 | HHI.DCPOC ---
Discharge Care Plan Diagnosis: (1) Cardiomyopathy (2) Steal syndrome dialysis vascular access (3) AVF (arteriovenous fistula) (4) Diabetes mellitus (5) AV fistula occlusion (6) ESRD (end stage renal disease) on dialysis (7) Gangrene of finger of left hand (8) Acute respiratory failure (9) Sepsis (10) Metabolic encephalopathy Goals to Promote Your Health * To prevent worsening of your condition and complications * To maintain your health at the optimal level Directions to Meet Your Goals Take your medications as prescribed Follow your dietary instruction Follow activity as directed Keep your appointments as scheduled Take your immunizations and boosters as scheduled If your symptoms worsen call your PCP, if no PCP go to Urgent Care Center or Emergency Room Smoking is Dangerous to Your Health. Avoid second hand smoke Call the 24-hour hour crisis hotline for domestic abuse at Mat Shah MD Dec 13, 2017 12:18
--- NOTE | 2017-12-13 12:23 | HHI.DS ---
Discharge Summary Admission Date Nov 16, 2017 at 14:13 Discharge Date: Dec 13, 2017 Admitting Diagnosis (1) AV fistula occlusion ICD Code: T82.898A - Other specified complication of vascular prosthetic devices, implants and grafts, initial encounter Diagnosis: Principal (2) ESRD (end stage renal disease) on dialysis ICD Code: N18.6 - End stage renal disease; Z99.2 - Dependence on renal dialysis Diagnosis: Principal (3) Diabetes mellitus ICD Code: E11.9 - Type 2 diabetes mellitus without complications Diagnosis: Principal Status: Chronic (4) Gangrene of finger of left hand ICD Code: I96 - Gangrene, not elsewhere classified Diagnosis: Principal Status: Acute (5) End stage renal disease ICD Code: N18.6 - End stage renal disease Diagnosis: Principal Status: Acute (6) Acute respiratory failure ICD Code: J96.00 - Acute respiratory failure, unspecified whether with hypoxia or hypercapnia Diagnosis: Principal Status: Resolved (7) Sepsis ICD Code: A41.9 - Sepsis, unspecified organism Diagnosis: Principal Status: Resolved (8) Metabolic encephalopathy ICD Code: G93.41 - Metabolic encephalopathy Diagnosis: Principal Status: Resolved (9) Cardiomyopathy ICD Code: I42.9 - Cardiomyopathy, unspecified Diagnosis: Principal (10) Steal syndrome dialysis vascular access ICD Code: T82.898A - Other specified complication of vascular prosthetic devices, implants and grafts, initial encounter Diagnosis: Principal Status: Acute Procedures 11/20 Sp LUE angiogram. 11/21 permacath placement Brief History - From Admission 67-year-old male with a history of end-stage renal disease on hemodialysis Sunday, diabetes, CAD, CHF, hypertension was transferred from [facility] to be evaluated by vascular surgery. Patient states he was admitted to [facility] because he had low blood pressure readings at home. While at [facility] patient was found to have included left AV fistula at the proximal anastomosis, patient was found to have a thrombosis of his DRIL with an ischemic middle finger Dr. Jansen was notified of the situation with the patient was septic and patient was transferred here for evaluation. Upon examination patient found to have a necrotic left middle finger that patient states has been going on for the last 12 weeks. Patient was being treated with cefepime IV. Last Dialysis was Sunday, patient states 1.5L removed. Hoisting Laborer: Dr. Pereyra CBC/BMP: 12/13/17 1111 12/11/17 0315 Significant Findings Laboratory Tests Test 12/11/17 03:15 12/13/17 03:00 12/13/17 11:11 White Blood Count 15.2 TH/MM3 (4.0-11.0) 11.3 TH/MM3 (4.0-11.0) Red Blood Count 2.99 MIL/MM3 (4.50-5.90) 3.05 MIL/MM3 (4.50-5.90) Hemoglobin 8.9 GM/DL (13.0-17.0) 9.3 GM/DL (13.0-17.0) Hematocrit 28.4 % (39.0-51.0) 29.6 % (39.0-51.0) Mean Corpuscular Hemoglobin Concent 31.4 % (32.0-36.0) 31.3 % (32.0-36.0) Red Cell Distribution Width 17.8 % (11.6-17.2) 19.8 % (11.6-17.2) Neutrophils (%) (Auto) 80.6 % (16.0-70.0) 84.7 % (16.0-70.0) Lymphocytes (%) (Auto) 5.0 % (9.0-44.0) 5.9 % (9.0-44.0) Monocytes (%) (Auto) 13.6 % (0.0-8.0) Neutrophils # (Auto) 12.3 TH/MM3 (1.8-7.7) 9.6 TH/MM3 (1.8-7.7) Lymphocytes # (Auto) 0.8 TH/MM3 (1.0-4.8) 0.7 TH/MM3 (1.0-4.8) Monocytes # (Auto) 2.1 TH/MM3 (0-0.9) Blood Urea Nitrogen 35 MG/DL (7-18) Creatinine 4.38 MG/DL (0.60-1.30) Estimat Glomerular Filtration Rate 14 ML/MIN (>89) Phosphorus Level 1.7 MG/DL (2.5-4.9) Imaging Last Impressions Chest X-Ray 12/04/17 0000 Signed Impressions: Service Date/Time: Monday, December 04, 2017 11:09 - CONCLUSION: 1. Uncomplicated line placement. No evidence of pneumothorax. James Mike MD Head CT 11/30/17 0000 Signed Impressions: Service Date/Time: Thursday, November 30, 2017 22:05 - CONCLUSION: 1. No acute findings. No significant change. Uzair Berrios MD Abdomen X-Ray 11/29/17 0000 Signed Impressions: Service Date/Time: November 16:03 - CONCLUSION: NG tube tip extends into the duodenum Sami Burnett MD Cyst Biopsy Asp-Paracentesis US 11/22/17 0000 Signed Impressions: Service Date/Time: November 15:20 - CONCLUSION: Uncomplicated ultrasound guided paracentesis. 6 L of chylous appearing fluid was removed. Taj Oden MD Catheter Placement X-Ray 11/21/17 1554 Signed Impressions: Service Date/Time: Tuesday, November 21, 2017 11:42 - CONCLUSION: Uncomplicated PermaCath placement as above. James Mike MD Lower Extremity Ultrasound 11/13/17 0000 Signed Impressions: Service Date/Time: Monday, November 13, 2017 07:52 - CONCLUSION: No DVT seen in either leg. Jewel Kaiser MD Hand X-Ray 11/13/17 0000 Signed Impressions: Service Date/Time: Monday, November 13, 2017 10:18 - CONCLUSION: Osteoporosis. Extensive arterial calcifications. 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 No definite evidence of bony destruction or osteomyelitis Jared Upton MD PE at Discharge GENERAL: Appears comfortable. SKIN: Warm and dry. HEAD: Atraumatic. Normocephalic. EYES: Pupils equal and round. No scleral icterus. No injection or drainage. ENT: No nasal bleeding or discharge. Mucous membranes pink and moist. NECK: Trachea midline. No JVD. CARDIOVASCULAR: Regular rate and rhythm. No murmur appreciated. RESPIRATORY: No accessory muscle use. Coarse breath sounds bilaterally GASTROINTESTINAL: Abdomen soft, non-tender, nondistended. Hepatic and splenic margins not palpable. MUSCULOSKELETAL: Extremities without clubbing, cyanosis. RUE with 1+ edema. No obvious deformities. NEUROLOGICAL: No obvious cranial nerve deficits. Unable to participate in exam. Pt update on day of discharge The patient states he feels much better. Denies chest pain or shortness of breath. Vital signs stable. As per RN report the patient is eating better. Discussed the case with Dr. Starks who cleared the patient to be discharged. Also discussed the case with Dr. Martinez who also. The patient to be discharged on no antibiotics. The patient to complete his antibiotic treatment today. Pt Condition on Discharge: Stable Discharge Disposition: Discharge to SNF Discharge Time: > 30 minutes Discharge Instructions DIET: Follow Instructions for: Diabetic Diet, Renal Failure Diet Activities you can perform: See Additionl Instruction Other Activity Instructions: As per physical therapy instructions. Follow up Referrals: Nephrology - 2-3 Days PCP Follow-up - 3-5 Days with Meir Oliver DO Vascular Surgery - 2 Weeks with Issa Jansen MD Your follow up appointment is on 12/12/17 at 3:00 with a surveillance [facility] New Medications: Aspirin DR (Aspirin DR) 81 Mg Tabdr 81 MG PO DAILY for Blood Clot Prevention for 30 Days, #30 TAB Clopidogrel (Plavix) 75 Mg Tab 75 MG PO DAILY for Blood Clot Prevention for 30 Days, #30 TAB Insulin Aspart Inj (Novolog Inj) 100 Unit/Ml Inj 1 INJECTION SQ ACHS SLIDING SCALE for Blood Sugar Management for 30 Days, INJECTION Continued Medications: Carvedilol (Carvedilol) 3.125 Mg Tab 3.125 MG PO BID, #60 TAB 0 Refills Coenzyme Q10 (Ubidecarenone) (Coq-10 Tr) 100 Mg Cap 200 MG PO DAILY Gabapentin (Gabapentin) 100 Mg Cap 100 MG PO TID, #90 CAP 0 Refills Insulin Human Isophane-Regular 70-30 Inj (Novolin 70-30 Inj) 1,000 Unit/10 Ml Vial 12 UNITS SQ BIDAC for Blood Sugar Management, ML 0 Refills Pantoprazole (Pantoprazole) 20 Mg Tab 20 MG PO DAILY for Reflux, #30 TAB 0 Refills Thyroid (Lamont Thyroid) 60 Mg Tab 60 MG PO BID for Thyroid Supplement, #30 TAB 0 Refills Discontinued Medications: Bumetanide (Bumetanide) 2 Mg Tab 2 MG PO DAILY, TAB 0 Refills Mat Shah MD Dec 13, 2017 12:23
[2017-12-13 12:34] LABS: ALBUMIN 2.3 GM/DL (3.4-5.0); AST (GOT) 22 U/L (15-37); BLOOD UREA NITROGEN 33 MG/DL (7-18); CALCIUM 8.8 MG/DL (8.5-10.1); CHLORIDE 101 MEQ/L (98-107); CREATININE 4.61 MG/DL (0.60-1.30); GLOMERULAR FILTRATION RATE 13 ML/MIN (>89); GLUCOSE,RANDOM 231 MG/DL (74-106); MAGNESIUM 2.1 MG/DL (1.5-2.5); PHOSPHORUS 1.7 MG/DL (2.5-4.9); SODIUM (NA) 139 MEQ/L (136-145)
[2017-12-13 12:41] LABS: ALKALINE PHOSPHATASE 178 U/L (45-117); ALT (GPT) 11 U/L (12-78); TOTAL BILIRUBIN ADULT 0.6 MG/DL (0.2-1.0); TOTAL PROTEIN 5.5 GM/DL (6.4-8.2)
--- NOTE | 2017-12-13 15:53 | HHI.PR ---
Subjective Remarks Patient denies cp/sob. eating better. As per patient is very weak. Afebrile Objective Vitals Vital Signs Date Time Temp Pulse Resp B/P (MAP) Pulse Ox O2 Delivery O2 Flow Rate FiO2 12/13/17 12:00 97.9 72 28 120/59 (79) 88 12/13/17 11:00 71 22 114/61 (78) 100 12/13/17 10:00 72 33 117/57 (77) 100 12/13/17 09:00 70 12/13/17 09:00 69 25 117/57 (77) 100 12/13/17 08:00 98.1 72 35 121/56 (77) 91 12/13/17 08:00 72 12/13/17 07:27 100 Nasal Cannula 2.00 12/13/17 07:00 72 29 123/53 (76) 99 12/13/17 07:00 72 12/13/17 06:00 72 12/13/17 04:00 72 12/13/17 04:00 99.3 72 29 132/57 (82) 100 12/13/17 02:00 75 12/13/17 00:00 73 12/13/17 00:00 97.4 73 41 118/57 (77) 93 12/12/17 22:00 72 12/12/17 20:00 72 12/12/17 20:00 97.9 72 26 136/61 (86) 100 12/12/17 19:55 99 Nasal Cannula 2.00 12/12/17 18:00 73 38 119/53 (75) 88 12/12/17 18:00 72 12/12/17 17:00 72 12/12/17 17:00 72 22 125/57 (79) 94 12/12/17 16:00 72 12/12/17 16:00 97.7 72 44 120/58 (78) 100 I/O 12/12/17 12/12/17 12/12/17 12/13/17 12/13/17 12/13/17 07:00 15:00 23:00 07:00 15:00 23:00 Intake Total 290 ml 460 ml Output Total 2700 ml 0 ml Balance 290 ml -2700 ml 460 ml Intake Oral 360 ml Oral Supplement 240 ml IV Total 50 ml 100 ml Output Urine Total 0 ml Hemodialysis 2700 ml # Bowel Movements 1 2 1 Result Diagram: 12/13/17 1111 12/13/17 1111 Imaging Last Impressions Chest X-Ray 12/04/17 0000 Signed Impressions: Service Date/Time: Monday, December 04, 2017 11:09 - CONCLUSION: 1. Uncomplicated line placement. No evidence of pneumothorax. James Mike MD Head CT 11/30/17 0000 Signed Impressions: Service Date/Time: Thursday, November 30, 2017 22:05 - CONCLUSION: 1. No acute findings. No significant change. Uzair Berrios MD Abdomen X-Ray 11/29/17 0000 Signed Impressions: Service Date/Time: November 16:03 - CONCLUSION: NG tube tip extends into the duodenum Sami Burnett MD Cyst Biopsy Asp-Paracentesis US 11/22/17 0000 Signed Impressions: Service Date/Time: November 15:20 - CONCLUSION: Uncomplicated ultrasound guided paracentesis. 6 L of chylous appearing fluid was removed. Taj Oden MD Catheter Placement X-Ray 11/21/17 1554 Signed Impressions: Service Date/Time: Tuesday, November 21, 2017 11:42 - CONCLUSION: Uncomplicated PermaCath placement as above. James Mike MD Lower Extremity Ultrasound 11/13/17 0000 Signed Impressions: Service Date/Time: Monday, November 13, 2017 07:52 - CONCLUSION: No DVT seen in either leg. Jewel Kaiser MD Hand X-Ray 11/13/17 0000 Signed Impressions: Service Date/Time: Monday, November 13, 2017 10:18 - CONCLUSION: Osteoporosis. Extensive arterial calcifications. 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 No definite evidence of bony destruction or osteomyelitis Jared Upton MD Objective Remarks GENERAL: Lying in bed. Appears comfortable. again, no change on exam. SKIN: Warm and dry. HEAD: Normocephalic. EYES: No scleral icterus. No injection or drainage. NECK: Supple, trachea midline. No JVD. CARDIOVASCULAR: Regular rate and rhythm without murmurs, gallops, or rubs. RESPIRATORY: Breath sounds equal bilaterally. No accessory muscle use. GASTROINTESTINAL: Abdomen soft, non-tender, nondistended. MUSCULOSKELETAL: No cyanosis, or edema. patient does have dry gangrene of left third finger. No erythema proximally. Dry gangrene noted. Incision LUE dry, no redness BACK: Nontender without obvious deformity. No CVA tenderness. Procedures 11/20 Sp LUE angiogram. 11/21 permacath placement Medications and IVs Current Medications Medications (Trade) Dose Ordered Sig/Renny Route Start Time Stop Time Status Last Admin (NS Flush) 2 ml BID IV FLUSH 11/12/17 21:00 12/13/17 08:44 (Zofran Inj) 4 mg Q6H PRN IVP 11/12/17 20:00 (Narcan Inj) 0.4 mg UNSCH PRN IV PUSH 11/12/17 20:00 (D50w (Vial) Inj) 50 ml UNSCH PRN IV PUSH 11/12/17 23:30 (Glucagon Inj) 1 mg UNSCH PRN OTHER 11/12/17 23:30 (Phoslo) 667 mg TID PO 11/13/17 09:00 Future Hold 12/12/17 17:41 (Ecotrin Ec) 162 mg DAILY PO 11/13/17 09:00 12/13/17 08:43 (Plavix) 75 mg DAILY PO 11/13/17 09:00 Future hold 12/13/17 08:43 (Baciguent Oint) 1 applic Q12HR TOPICAL 11/13/17 21:00 12/13/17 08:44 Sodium Chloride 1,000 ml @ 0 mls/hr Q0M PRN OTHER 11/13/17 14:09 12/03/17 18:45 (Heparin Inj) 8,000 units UNSCH PRN IV FLUSH 11/13/17 14:15 11/15/17 15:23 Sodium Chloride 1,000 ml @ 200 mls/hr Q5H PRN IV 11/13/17 14:09 11/26/17 07:15 Sodium Chloride 1,000 ml @ 0 mls/hr Q0M PRN OTHER 11/13/17 14:09 (Mannitol Inj) 12.5 gm UNSCH PRN IV 11/13/17 14:15 11/17/17 11:53 Albumin Human 100 ml @ 60 mls/hr UNSCH PRN IV 11/13/17 14:15 12/03/17 18:46 (NS Flush) 5 ml UNSCH PRN IV FLUSH 11/13/17 14:15 12/03/17 18:46 (Heparin Inj) UNSCH PRN .XX 11/13/17 14:15 12/12/17 08:43 (Gentamicin Inj) 20 mg UNSCH PRN OTHER 11/13/17 14:15 12/12/17 08:44 (Zofran Inj) 4 mg UNSCH PRN IV PUSH 11/13/17 14:15 (Tylenol) 650 mg UNSCH PRN PO 11/13/17 14:15 11/18/17 08:40 (Benadryl) 25 mg UNSCH PRN PO 11/13/17 14:15 (Nitrostat Sl) 0.4 mg UNSCH PRN SL 11/13/17 14:15 (Catapres) 0.1 mg UNSCH PRN PO 11/13/17 14:15 (Epogen Inj) 4,000 units UNSCH PRN IV PUSH 11/13/17 14:15 12/12/17 08:44 (Gelfoam 12 Mm/7 Mm Top) 1 foam UNSCH PRN TOP 11/13/17 14:15 (Coreg) 3.125 mg BID PO 11/16/17 21:00 Future hold 12/13/17 08:43 (Neurontin) 100 mg TID PO 11/20/17 18:00 Future Hold 11/25/17 18:34 ([place] Thyroid) 60 mg BID PO 11/20/17 21:00 12/13/17 08:43 (Roxicodone) 5 mg Q4H PRN PO 11/20/17 15:15 12/12/17 16:29 (Marleny-Colace) 1 tab BID PO 11/20/17 21:00 12/11/17 09:13 (Milk Of Magnesia Liq) 30 ml Q12H PRN PO 11/20/17 15:15 (Senokot) 17.2 mg Q12H PRN PO 11/20/17 15:15 12/05/17 09:54 (Dulcolax Supp) 10 mg DAILY PRN RECTAL 11/20/17 15:15 (Lactulose Liq) 30 ml DAILY PRN PO 11/20/17 15:15 (NS Flush) 5 ml UNSCH PRN IV FLUSH 11/20/17 17:45 (Heparin Inj) 2,000 units UNSCH PRN IV FLUSH 11/20/17 17:45 12/10/17 09:26 (Mycostatin Cream) 1 applic Q12HR TOPICAL 11/24/17 14:00 12/13/17 08:45 (Heparin Inj) 5,000 units Q12HR SQ 11/26/17 21:00 12/13/17 08:43 Piperacillin Sod/ Tazobactam Sod 50 ml @ 100 mls/hr Q8H IV 12/03/17 14:00 12/13/17 23:00 12/13/17 14:13 (Brethine Inj) 1 mg UNSCH PRN SQ 12/04/17 09:15 (Albuterol Neb) 2.5 mg Q2HR NEB PRN NEB 12/08/17 20:30 (Protonix) 40 mg DAILY PO 12/09/17 09:00 12/13/17 08:43 (NovoLOG SUPPLEMENTAL SCALE) 1 ACHS SQ 12/09/17 17:00 12/13/17 12:36 (Tylenol 650 Mg/ 20 ml Liq) 650 mg Q6H PRN PO 12/09/17 15:45 12/12/17 12:56 (Megace Liq) 400 mg DAILY PO 12/11/17 15:15 12/13/17 08:43 A/P Problem List: (1) AV fistula occlusion ICD Code: T82.898A - Other specified complication of vascular prosthetic devices, implants and grafts, initial encounter (2) ESRD (end stage renal disease) on dialysis ICD Code: N18.6 - End stage renal disease; Z99.2 - Dependence on renal dialysis (3) Diabetes mellitus ICD Code: E11.9 - Type 2 diabetes mellitus without complications Status: Chronic (4) Gangrene of finger of left hand ICD Code: I96 - Gangrene, not elsewhere classified Status: Acute (5) End stage renal disease ICD Code: N18.6 - End stage renal disease Status: Acute (6) Acute respiratory failure ICD Code: J96.00 - Acute respiratory failure, unspecified whether with hypoxia or hypercapnia Status: Resolved (7) Sepsis ICD Code: A41.9 - Sepsis, unspecified organism Status: Resolved (8) Metabolic encephalopathy ICD Code: G93.41 - Metabolic encephalopathy Status: Resolved (9) Cardiomyopathy ICD Code: I42.9 - Cardiomyopathy, unspecified (10) Steal syndrome dialysis vascular access ICD Code: T82.898A - Other specified complication of vascular prosthetic devices, implants and grafts, initial encounter Status: Acute Assessment and Plan Metabolic encephalopathy Peripheral neuropathy Use acetaminophen 650 mg by mouth every 6 hours when necessary fever/pain 1-3 oxycodone every 4 hours prn 4-10. - CT brain 11/26 and 11/30 negative - Not candidate for MRI brain due to pacer. Gabapentin 100 mg daily currently on hold. Resume when clinically indicated - Ammonia level 21 on 11/30 -B12 within normal limits - EEG 11/27 - mildly abnormal with mild encephalopathy -EEG 12/03: mod/severe encephalopathy, no ictal activity. Intermittent triphasic (which is c/w metabolic encephalopathy). No sz. Neurology has followed- Dr. Hayden -Suspected metabolic encephalopathy For repeat EEG today Resp: Acute respiratory failure, resolved - Extubated 11/24/17 Reintubated 12/03, extubated 12/06 Patient now on nasal canula. Albuterol/ipratropium aerosols every 6 hours with albuterol aerosols every 2 hours. As needed Dyspnea CVS: Hypotension - resolved Bilateral upper extremity ischemia -s/p L UE brachial-brachial bypass and access ligation 11/20/17 Dr. Jansen Uncontrolled hypertension -active - Continue aspirin 162 milligrams daily, clopidogrel bisulfate 75 mg daily. Noted on aspirin 81 mg daily at home - Midodrine 10 mg every 8 hours - cortisol level 16.2 . Previously on dexamethasone 4 mg IV daily to cover for adrenal insufficiency on 12/05. Hypotension responded to therapy, suspected relative adrenal insufficiency. Now hypertension, now on dexamethasone to 2 mg IV daily. Eventually will be transitioned to hydrocortisone and fludrocortisone po with or without cosyntropin stress. Echocardiogram 11/14/17 - The left ventricular systolic function is normal with an estimated ejection fraction in the range of 55-60%. Wall thickness is measured at the upper limits of normal. Normal left ventricular size. The left atrial size is mildly dilated. Mild thickening of the mitral valve leaflets. Trace mitral valve regurgitation. Moderate mitral annular calcification. 12/11 hypotension has resolved and the patient now has uncontrolled hypertension with systolic blood pressure in the 170s. The patient is also medial joint which I will discontinue. Resume Coreg. 12/12 hypertension has now improved and BPs are stable. Continue Coreg. Continue to monitor vital signs. GI: Chronic moderate protein energy malnutrition. Dysphagia Poor appetite -On PO diet per speech - Large-volume ascites removed 11/22/17 - On pantoprazole 40 mg for GI prophylaxis medication -metoclopramide 5mg IV Q8hrly for GI motility on 12/05, d/c'd 12/07. - Docusate sodium/senna 1 tablet twice a day for bowel regimen 12/11 start Megace for poor appetite. Continue management as above. 12/12 appetite is much improved after patient been started on Megace. Continue Renal/FEN/ : End-stage renal disease - Hemodialysis per nephrology Sunday/Sunday. For HD today - R PermCath placement 11/21 by IR. -Monitor renal function, avoid nephrotoxins Seen calcium acetate 6670 g 3 times a day/home medication ID: Septic thrombophlebitis resolved Enterobacter bacteremia, BC 11/05 (+), ?source - permacath C/S negative (?due to previous Abx) - concern with infected thrombus LUE AVF HCAP 12/03 Sputum cx: Kleb pneumonia ESBL Septic shock, resolved Antibiotics per ID, Dr. Martinez: Zosyn 12/03 #7. Plan for minimum 7 day course. 12/[address] martinez - last day of antibiotics is today. Clear for DC. Pertinent cultures: 12/03 - blood cultures 2 - no growth 12/03/18 sputum - Klebsiella ESBL 11/24 - cultures 2 - no growth2 11/23 - catheter tip - no growth 11/22 - peritoneal fluid - no growth 11/15 - blood cultures 2 - no growth 11/13 - blood cultures 2 - no growth Heme: Leukocytosis Anemia of chronic kidney disease/normocytic Monitor CBC, on Epogen with HD Endo : Diabetes mellitus Hypothyroidism ?relative adrenal insufficinecy -SSI (Novulog medium scale) with bedside glucose every before meals/at bedtime On Novulin 70/30 12 units twice a day with sliding scale at home On [place] Synthroid 60mg BID, TSH 9.7 on 11/30 free T4 1.06. Free T3 1.57. Dexamethasone 2 mg IV daily as per above. DVT GI prophylaxis SCDs and Subcutaneous heparin 5000 q12 Pantoprazole 40 mg by mouth daily Lines: peripheral IV's. R Permacath 11/21/17 Dr. Mike DNR/DNI. Palliative care following. Patient is currently not capacitated for medical decision-making. Son, Derrick, is his healthcare surrogate [phone]. Per palliative care documentation, hospice has been discussed and family has been receptive to hospice if there is additional decline. Discharge Planning Okay to transfer to the medical floor. Dc to SNF when bed arrangements made. Discussed with correctional casework specialist. Mat Shah MD Dec 13, 2017 15:52
[2017-12-13] MEDS ORDERED: diphenhydrAMINE HCL 25 MG CAP PO PRN (19:00)
[2017-12-13] MEDS ORDERED: ACETAMINOPHEN 325 MG TAB PO PRN (19:00)
[2017-12-13] MEDS ORDERED: FUROSEMIDE 20 MG/2 ML VIAL IV PUSH ONE (19:00)
[2017-12-13] MEDS ORDERED: SODIUM CHLOR 0.9% 250 ML INJ 250 ML IV ONE (19:00)
[2017-12-14] VITALS: BP 135/60; PULSE 70; RESP 30; TEMP 98; O2SAT 93
[2017-12-14 04:00] VITALS: BP 131/59; PULSE 71; RESP 39; TEMP 97.9; O2SAT 93
[2017-12-14 07:05] VITALS: O2SAT 92
[2017-12-14 08:00] VITALS: BP 137/59; PULSE 71; RESP 22; TEMP 98; O2SAT 94
[2017-12-14] MEDS: INSULIN ASPART SUPPLEMENTAL SCALE SQ SCH ×3 (08:00→17:00)
[2017-12-14] MEDS: THYROID 60 MG TAB PO SCH (08:52)
[2017-12-14] MEDS: CLOPIDOGREL 75 MG TAB PO SCH (08:53)
[2017-12-14] MEDS: HEPARIN SODIUM - SQ 10,000 UNITS/ML VIAL SQ SCH (08:53)
[2017-12-14] MEDS: ASPIRIN EC 81 MG TABEC PO SCH (08:53)
[2017-12-14] MEDS: CARVEDILOL 3.125 MG TAB PO SCH (08:53)
[2017-12-14] MEDS: DOCUSATE SODIUM 50 MG/SENNA 8.6 MG TAB PO SCH (08:53)
[2017-12-14] MEDS: MEGESTROL ACETATE SUSP 400 MG/10 ML CUP PO SCH (08:53)
[2017-12-14] MEDS: PANTOPRAZOLE SOD 40 MG DELAYED RELEASE TAB PO SCH (08:53)
[2017-12-14] MEDS: NYSTATIN 100,000 UNIT/GM CREAM 15 GM TOPICAL SCH (09:07)
[2017-12-14] MEDS: SODIUM CHLORIDE 0.9% FLUSH 10 ML FLUSH IV FLUSH SCH (09:07)
[2017-12-14] MEDS: BACITRACIN TOP OINT 15 GM TUBE TOPICAL SCH (09:07)
--- NOTE | 2017-12-14 09:15 | HHI.NPPN ---
Subjective History of Present Illness Patient is a 67-year-old male with a history of end-stage renal disease on hemodialysis Sunday/Sunday/ Sunday, diabetes, CAD, CHF, hypertension was transferred from [facility] to be evaluated by vascular surgery. Patient states he was admitted to [facility] because he had low blood pressure readings at home. AV fistula has not been functioning or used for 6- 8 weeks and they have been using a permacath for dialysis. Permacath has been removed secondary to possible infection and vas cath has been placed. He has been treated with cefepime IV. Last dialysis was Sunday and 1.5 L removed. Patient has a necrotic left middle finger that patient states has been going on for the last 12 weeks. Additional Remarks Patient resting comfortably. No SOB noted. (Kathleen Olguin) Review of Systems Respiratory Respiratory Remarks No SOB (Kathleen Olguin) Cardiovascular Cardiac Remarks No CP (Kathleen Olguin) Gastrointestinal GI Remarks No abdominal pain (Kathleen Olguin) Genitourinary Remarks (Kathleen Olguin) Objective Data Data Vital Signs Date Time Temp Pulse Resp B/P (MAP) Pulse Ox O2 Delivery O2 Flow Rate FiO2 12/14/17 07:05 92 21 12/14/17 04:00 71 12/14/17 04:00 97.9 71 39 131/59 (83) 93 12/14/17 00:00 98.0 70 30 135/60 (85) 93 12/14/17 00:00 70 12/13/17 20:00 72 12/13/17 20:00 98.2 72 31 142/58 (86) 100 12/13/17 19:02 100 Nasal Cannula 2.00 12/13/17 17:00 61 12/13/17 16:00 64 12/13/17 16:00 97.8 64 33 126/54 (78) 97 12/13/17 15:00 67 12/13/17 14:00 65 12/13/17 13:00 69 12/13/17 12:00 97.9 72 28 120/59 (79) 88 12/13/17 12:00 70 12/13/17 11:00 71 12/13/17 11:00 71 22 114/61 (78) 100 12/13/17 10:00 72 33 117/57 (77) 100 12/13/17 10:00 72 (Kathleen Olguin) -: 12/13/17 1111 12/13/17 1111 Tubes & Lines: Perma-Cath (Kathleen Olguin) Physical Exam General Appearance: No Acute Distress, Comfortable (Kathleen Olguin) Eyes Eye Exam: Pupils Equal (Kathleen Olguin) Throat Throat Exam: Oral Mucosa Scalp Level & Moist Throat Remarks NG tube (Kathleen Olguin) Pulmonary Resp Exam: Breath Sounds Equal, No Distress, Decreased Bases (Kathleen Olguin) Cardiology CV Exam: Regular, Murmur (Kathleen Olguin) Gastrointestinal/Abdomen GI Exam: Soft, Non-Tender, Bowel Sounds Present (Kathleen Olguin) Genitourinary Exam: Flank Non-Tender (Kathleen Olguin) Integumentary Skin Exam: Clear, Warm Skin Remarks necrotic area on tip on left hand middle finger (Kathleen Olguin) Extremeties Extremities Exam: No Edema (Kathleen Olguin) Neurologic Neuro Exam: Alert, Awake Neuro Remarks speech delayed (Kathleen Olguin) Assessment/Plan Assessment Summary: Anemia of CKD, Malnutrition, End Stage Renal Disease Problem List: (1) ESRD (end stage renal disease) on dialysis ICD Codes: N18.6 - End stage renal disease; Z99.2 - Dependence on renal dialysis Plan: Dialysis MWF s/p LUE AVF ligation for hand ischemia Permacath in right chest wall Mental status improving daily Potassium WNL Anemia- Epogen with dialysis Phoslo on hold with poor appetite and low PO4 levels Dialysis planned for today. Discharge plans underway (2) Gangrene of finger of left hand ICD Codes: I96 - Gangrene, not elsewhere classified Status: Acute Plan: necrotic area on left hand middle finger (3) AV fistula occlusion ICD Codes: T82.898A - Other specified complication of vascular prosthetic devices, implants and grafts, initial encounter Plan: s/p L UE bypass 2/6 ligation of AVF and DRIL (4) Diabetes mellitus ICD Codes: E11.9 - Type 2 diabetes mellitus without complications Status: Chronic Plan: Maintain BS between 140mg/dl to 180 mg/dl (Kathleen Olguin) Problem List: (1) ESRD (end stage renal disease) on dialysis ICD Codes: N18.6 - End stage renal disease; Z99.2 - Dependence on renal dialysis Plan: Dialysis MWF s/p LUE AVF ligation for hand ischemia Permacath in right chest wall Mental status improving daily Potassium WNL Anemia- Epogen with dialysis Phoslo on hold with poor appetite and low PO4 levels Dialysis planned for today. Discharge plans underway. Patient seen and examined, agree with above. Once D/C, will continue HD and follow with his Assistant Front Desk Manager. (2) Gangrene of finger of left hand ICD Codes: I96 - Gangrene, not elsewhere classified Status: Acute Plan: necrotic area on left hand middle finger (3) AV fistula occlusion ICD Codes: T82.898A - Other specified complication of vascular prosthetic devices, implants and grafts, initial encounter Plan: s/p L UE bypass 2/6 ligation of AVF and DRIL (4) Diabetes mellitus ICD Codes: E11.9 - Type 2 diabetes mellitus without complications Status: Chronic Plan: Maintain BS between 140mg/dl to 180 mg/dl (Kim Santos MD) Kathleen Olguin Dec 14, 2017 09:15 Kim Santos MD Dec 14, 2017 21:16
[2017-12-14 12:00] VITALS: BP 131/77; PULSE 71; RESP 37; TEMP 98.4; O2SAT 93
[2017-12-14 14:00] VITALS: BP 138/65; PULSE 72; RESP 25; O2SAT 100
--- NOTE | 2017-12-14 15:12 | HHI.PR ---
Subjective Remarks Deferred entry, the patient was seen earlier at 9:30 AM. The patient denies chest pain or shortness of breath. Complains of some buttocks pain. Objective Vitals Vital Signs Date Time Temp Pulse Resp B/P (MAP) Pulse Ox O2 Delivery O2 Flow Rate FiO2 12/14/17 07:05 92 21 12/14/17 04:00 71 12/14/17 04:00 97.9 71 39 131/59 (83) 93 12/14/17 00:00 98.0 70 30 135/60 (85) 93 12/14/17 00:00 70 12/13/17 20:00 72 12/13/17 20:00 98.2 72 31 142/58 (86) 100 12/13/17 19:02 100 Nasal Cannula 2.00 12/13/17 17:00 61 12/13/17 16:00 64 12/13/17 16:00 97.8 64 33 126/54 (78) 97 I/O 12/13/17 12/13/17 12/13/17 12/14/17 12/14/17 12/14/17 07:00 15:00 23:00 07:00 15:00 23:00 Intake Total 480 ml 250 ml Output Total 0 ml 0 ml Balance 480 ml 250 ml Intake Oral 480 ml 200 ml IV Total 50 ml Output Urine Total 0 ml 0 ml # Bowel Movements 1 0 1 Result Diagram: 12/13/17 1111 12/13/17 1111 Imaging Last Impressions Chest X-Ray 12/04/17 0000 Signed Impressions: Service Date/Time: Monday, December 04, 2017 11:09 - CONCLUSION: 1. Uncomplicated line placement. No evidence of pneumothorax. James Mike MD Head CT 11/30/17 0000 Signed Impressions: Service Date/Time: Thursday, November 30, 2017 22:05 - CONCLUSION: 1. No acute findings. No significant change. Uzair Berrios MD Abdomen X-Ray 11/29/17 0000 Signed Impressions: Service Date/Time: November 16:03 - CONCLUSION: NG tube tip extends into the duodenum Sami Burnett MD Cyst Biopsy Asp-Paracentesis US 11/22/17 0000 Signed Impressions: Service Date/Time: November 15:20 - CONCLUSION: Uncomplicated ultrasound guided paracentesis. 6 L of chylous appearing fluid was removed. Taj Oden MD Catheter Placement X-Ray 11/21/17 1554 Signed Impressions: Service Date/Time: Tuesday, November 21, 2017 11:42 - CONCLUSION: Uncomplicated PermaCath placement as above. James Mike MD Lower Extremity Ultrasound 11/13/17 0000 Signed Impressions: Service Date/Time: Monday, November 13, 2017 07:52 - CONCLUSION: No DVT seen in either leg. Jewel Kaiser MD Hand X-Ray 11/13/17 0000 Signed Impressions: Service Date/Time: Monday, November 13, 2017 10:18 - CONCLUSION: Osteoporosis. Extensive arterial calcifications. 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 No definite evidence of bony destruction or osteomyelitis Jared Upton MD Objective Remarks GENERAL: Lying in bed. Appears comfortable. again, no change on exam. SKIN: Warm and dry. HEAD: Normocephalic. EYES: No scleral icterus. No injection or drainage. NECK: Supple, trachea midline. No JVD. CARDIOVASCULAR: Regular rate and rhythm without murmurs, gallops, or rubs. RESPIRATORY: Breath sounds equal bilaterally. No accessory muscle use. GASTROINTESTINAL: Abdomen soft, non-tender, nondistended. MUSCULOSKELETAL: No cyanosis, or edema. patient does have dry gangrene of left third finger. No erythema proximally. Dry gangrene noted. Incision LUE dry, no redness BACK: Nontender without obvious deformity. No CVA tenderness. Procedures 11/20 Sp LUE angiogram. 11/21 permacath placement Medications and IVs Current Medications Medications (Trade) Dose Ordered Sig/Renny Route Start Time Stop Time Status Last Admin (NS Flush) 2 ml BID IV FLUSH 11/12/17 21:00 12/14/17 09:07 (Zofran Inj) 4 mg Q6H PRN IVP 11/12/17 20:00 (Narcan Inj) 0.4 mg UNSCH PRN IV PUSH 11/12/17 20:00 (D50w (Vial) Inj) 50 ml UNSCH PRN IV PUSH 11/12/17 23:30 (Glucagon Inj) 1 mg UNSCH PRN OTHER 11/12/17 23:30 (Phoslo) 667 mg TID PO 11/13/17 09:00 Future Hold 12/12/17 17:41 (Ecotrin Ec) 162 mg DAILY PO 11/13/17 09:00 12/14/17 08:53 (Plavix) 75 mg DAILY PO 11/13/17 09:00 Future hold 12/14/17 08:53 (Baciguent Oint) 1 applic Q12HR TOPICAL 11/13/17 21:00 12/14/17 09:07 Sodium Chloride 1,000 ml @ 0 mls/hr Q0M PRN OTHER 11/13/17 14:09 12/03/17 18:45 (Heparin Inj) 8,000 units UNSCH PRN IV FLUSH 11/13/17 14:15 11/15/17 15:23 Sodium Chloride 1,000 ml @ 200 mls/hr Q5H PRN IV 11/13/17 14:09 11/26/17 07:15 Sodium Chloride 1,000 ml @ 0 mls/hr Q0M PRN OTHER 11/13/17 14:09 (Mannitol Inj) 12.5 gm UNSCH PRN IV 11/13/17 14:15 11/17/17 11:53 Albumin Human 100 ml @ 60 mls/hr UNSCH PRN IV 11/13/17 14:15 12/03/17 18:46 (NS Flush) 5 ml UNSCH PRN IV FLUSH 11/13/17 14:15 12/03/17 18:46 (Heparin Inj) UNSCH PRN .XX 11/13/17 14:15 12/12/17 08:43 (Gentamicin Inj) 20 mg UNSCH PRN OTHER 11/13/17 14:15 12/12/17 08:44 (Zofran Inj) 4 mg UNSCH PRN IV PUSH 11/13/17 14:15 (Tylenol) 650 mg UNSCH PRN PO 11/13/17 14:15 11/18/17 08:40 (Benadryl) 25 mg UNSCH PRN PO 11/13/17 14:15 (Nitrostat Sl) 0.4 mg UNSCH PRN SL 11/13/17 14:15 (Catapres) 0.1 mg UNSCH PRN PO 11/13/17 14:15 (Epogen Inj) 4,000 units UNSCH PRN IV PUSH 11/13/17 14:15 12/12/17 08:44 (Gelfoam 12 Mm/7 Mm Top) 1 foam UNSCH PRN TOP 11/13/17 14:15 (Coreg) 3.125 mg BID PO 11/16/17 21:00 Future hold 12/14/17 08:53 (Neurontin) 100 mg TID PO 11/20/17 18:00 Future Hold 11/25/17 18:34 (Julian Thyroid) 60 mg BID PO 11/20/17 21:00 12/14/17 08:52 (Roxicodone) 5 mg Q4H PRN PO 11/20/17 15:15 12/12/17 16:29 (Marleny-Colace) 1 tab BID PO 11/20/17 21:00 12/14/17 08:53 (Milk Of Magnesia Liq) 30 ml Q12H PRN PO 11/20/17 15:15 (Senokot) 17.2 mg Q12H PRN PO 11/20/17 15:15 12/05/17 09:54 (Dulcolax Supp) 10 mg DAILY PRN RECTAL 11/20/17 15:15 (Lactulose Liq) 30 ml DAILY PRN PO 11/20/17 15:15 (NS Flush) 5 ml UNSCH PRN IV FLUSH 11/20/17 17:45 (Heparin Inj) 2,000 units UNSCH PRN IV FLUSH 11/20/17 17:45 12/10/17 09:26 (Mycostatin Cream) 1 applic Q12HR TOPICAL 11/24/17 14:00 12/14/17 09:07 (Heparin Inj) 5,000 units Q12HR SQ 11/26/17 21:00 12/14/17 08:53 (Brethine Inj) 1 mg UNSCH PRN SQ 12/04/17 09:15 (Albuterol Neb) 2.5 mg Q2HR NEB PRN NEB 12/08/17 20:30 (Protonix) 40 mg DAILY PO 12/09/17 09:00 12/14/17 08:53 (NovoLOG SUPPLEMENTAL SCALE) 1 ACHS SQ 12/09/17 17:00 12/13/17 20:53 (Tylenol 650 Mg/ 20 ml Liq) 650 mg Q6H PRN PO 12/09/17 15:45 12/12/17 12:56 (Megace Liq) 400 mg DAILY PO 12/11/17 15:15 12/14/17 08:53 Urinary Catheter: No Vascular Central Line Catheter: No A/P Problem List: (1) AV fistula occlusion ICD Code: T82.898A - Other specified complication of vascular prosthetic devices, implants and grafts, initial encounter (2) ESRD (end stage renal disease) on dialysis ICD Code: N18.6 - End stage renal disease; Z99.2 - Dependence on renal dialysis (3) Diabetes mellitus ICD Code: E11.9 - Type 2 diabetes mellitus without complications Status: Chronic (4) Gangrene of finger of left hand ICD Code: I96 - Gangrene, not elsewhere classified Status: Acute (5) End stage renal disease ICD Code: N18.6 - End stage renal disease Status: Acute (6) Acute respiratory failure ICD Code: J96.00 - Acute respiratory failure, unspecified whether with hypoxia or hypercapnia Status: Resolved (7) Sepsis ICD Code: A41.9 - Sepsis, unspecified organism Status: Resolved (8) Metabolic encephalopathy ICD Code: G93.41 - Metabolic encephalopathy Status: Resolved (9) Cardiomyopathy ICD Code: I42.9 - Cardiomyopathy, unspecified (10) Steal syndrome dialysis vascular access ICD Code: T82.898A - Other specified complication of vascular prosthetic devices, implants and grafts, initial encounter Status: Acute Assessment and Plan Metabolic encephalopathy Peripheral neuropathy Use acetaminophen 650 mg by mouth every 6 hours when necessary fever/pain 1-3 oxycodone every 4 hours prn 4-10. - CT brain 11/26 and 11/30 negative - Not candidate for MRI brain due to pacer. Gabapentin 100 mg daily currently on hold. Resume when clinically indicated - Ammonia level 21 on 11/30 -B12 within normal limits - EEG 11/27 - mildly abnormal with mild encephalopathy -EEG 12/03: mod/severe encephalopathy, no ictal activity. Intermittent triphasic (which is c/w metabolic encephalopathy). No sz. Neurology has followed- Dr. Hayden -Suspected metabolic encephalopathy For repeat EEG today Resp: Acute respiratory failure, resolved - Extubated 11/24/17 Reintubated 12/03, extubated 12/06 Patient now on nasal canula. Albuterol/ipratropium aerosols every 6 hours with albuterol aerosols every 2 hours. As needed Dyspnea CVS: Hypotension - resolved Bilateral upper extremity ischemia -s/p L UE brachial-brachial bypass and access ligation 11/20/17 Dr. Jansen Uncontrolled hypertension -active - Continue aspirin 162 milligrams daily, clopidogrel bisulfate 75 mg daily. Noted on aspirin 81 mg daily at home - Midodrine 10 mg every 8 hours - cortisol level 16.2 . Previously on dexamethasone 4 mg IV daily to cover for adrenal insufficiency on 12/05. Hypotension responded to therapy, suspected relative adrenal insufficiency. Now hypertension, now on dexamethasone to 2 mg IV daily. Eventually will be transitioned to hydrocortisone and fludrocortisone po with or without cosyntropin stress. Echocardiogram 11/14/17 - The left ventricular systolic function is normal with an estimated ejection fraction in the range of 55-60%. Wall thickness is measured at the upper limits of normal. Normal left ventricular size. The left atrial size is mildly dilated. Mild thickening of the mitral valve leaflets. Trace mitral valve regurgitation. Moderate mitral annular calcification. 12/11 hypotension has resolved and the patient now has uncontrolled hypertension with systolic blood pressure in the 170s. The patient is also medial joint which I will discontinue. Resume Coreg. 12/12 hypertension has now improved and BPs are stable. Continue Coreg. Continue to monitor vital signs. GI: Chronic moderate protein energy malnutrition. Dysphagia Poor appetite -On PO diet per speech - Large-volume ascites removed 11/22/17 - On pantoprazole 40 mg for GI prophylaxis medication -metoclopramide 5mg IV Q8hrly for GI motility on 12/05, d/c'd 12/07. - Docusate sodium/senna 1 tablet twice a day for bowel regimen 12/11 start Megace for poor appetite. Continue management as above. 12/12 appetite is much improved after patient been started on Megace. Continue Renal/FEN/ : End-stage renal disease - Hemodialysis per nephrology Sunday/Sunday. For HD today - R PermCath placement 11/21 by IR. -Monitor renal function, avoid nephrotoxins Seen calcium acetate 6670 g 3 times a day/home medication ID: Septic thrombophlebitis resolved Enterobacter bacteremia, BC 11/05 (+), ?source - permacath C/S negative (?due to previous Abx) - concern with infected thrombus LUE AVF HCAP 12/03 Sputum cx: Kleb pneumonia ESBL Septic shock, resolved Antibiotics per ID, Dr. Martinez: Zosyn 12/03 #7. Plan for minimum 7 day course. 12/[address] martinez - last day of antibiotics is today. Clear for DC. Pertinent cultures: 12/03 - blood cultures 2 - no growth 12/03/18 sputum - Klebsiella ESBL 11/24 - cultures 2 - no growth2 11/23 - catheter tip - no growth 11/22 - peritoneal fluid - no growth 11/15 - blood cultures 2 - no growth 11/13 - blood cultures 2 - no growth Heme: Leukocytosis Anemia of chronic kidney disease/normocytic Monitor CBC, on Epogen with HD Endo : Diabetes mellitus Hypothyroidism ?relative adrenal insufficinecy -SSI (Novulog medium scale) with bedside glucose every before meals/at bedtime On Novulin 70/30 12 units twice a day with sliding scale at home On Julian Synthroid 60mg BID, TSH 9.7 on 11/30 free T4 1.06. Free T3 1.57. Dexamethasone 2 mg IV daily as per above. Pain in buttocks. Continue Roxicodone. Likely due to prolonged bed rest. DVT GI prophylaxis SCDs and Subcutaneous heparin 5000 q12 Pantoprazole 40 mg by mouth daily Lines: peripheral IV's. R Permacath 11/21/17 Dr. Mike DNR/DNI. Palliative care following. Patient is currently not capacitated for medical decision-making. Son, Derrick, is his healthcare surrogate [phone]. Per palliative care documentation, hospice has been discussed and family has been receptive to hospice if there is additional decline. Discharge Planning Okay to transfer to the medical floor. Dc to SNF when bed arrangements made. Discussed with hospice case manager. Mat Shah MD Dec 14, 2017 15:12
--- NOTE | 2017-12-14 16:20 | HHI.HCPN ---
Reason for visit a. To assist with evaluation and management of symptoms including: Pain, shortness of breath, debility. b. To assist medical decision maker(s) with: better understanding of current medical conditions; weighing benefits/burdens of medical treatment options; making medical treatment decisions. . Subjective/Interval History Palliative care follow-up for further clarifications of goals of care. Patient seen earlier today in medical ICU, s/p medical extubation on 12/06/16. Tolerating O2 via nasal cannula 2 L. Patient alert to self, much more interactive than yesterday. Patient reports no pain or discomfort during my visit. No family at bedside. Patient en route to second floor for hemodialysis. speech therapy following, diet downgraded from mechanical soft to pured diet with thin liquids today. Nutrition is following. Patient currently on Megace 400 mg daily. Patient is afebrile, stable hemodynamically. Most recent laboratory workup 12/13/17 revealing WBC 11.3, Hgb stable at 9.3. BUN/creatinine 33/4.61. No new imaging for review. Patient has been accepted to [facility], likely to discharge today. Telephone conversation with patient's son Derrick. Medical update provided. Reviewed that patient has completed his IV antibiotic course, medically clear for discharge. Family sharing concerns of patient debilitating condition. Reviewed the future role of hospice services should patient does not tolerate rehabilitation, additional complications, continue decline or increase symptom burden. Family are receptive to this. . Family/friend interactions See interval note. . Advance Directives Living Will: Copy in medical record Health Care Surrogate: Copy in medical record Advance Directive Specifics Date completed: 12/05/2013. . Health Care Surrogate(s): Patient designated her son Derrick Hernandez as surrogate decision maker, alternate surrogate is Jeanine and son Iván. . Documented care wishes: Living will with standard verbiage as it pertains to terminal condition, end- stage condition or persistent vegetative state. . Significant change in goals: Aggressive management short of no code. . Objective Vital Signs Date Time Temp Pulse Resp B/P (MAP) Pulse Ox O2 Delivery O2 Flow Rate FiO2 12/14/17 07:05 92 21 12/14/17 04:00 71 12/14/17 04:00 97.9 71 39 131/59 (83) 93 12/14/17 00:00 98.0 70 30 135/60 (85) 93 3/2/18 00:00 70 12/13/17 20:00 72 12/13/17 20:00 98.2 72 31 142/58 (86) 100 12/13/17 19:02 100 Nasal Cannula 2.00 12/13/17 17:00 61 Intake & Output 12/14/17 12/14/17 07:00 19:00 Intake Total 250 ml Output Total 0 ml Balance 250 ml Intake Oral 200 ml IV Total 50 ml Output Urine Total 0 ml # Bowel Movements 1 Physical Exam CONSTITUTIONAL/GENERAL: This is an adequately nourished patient, in no apparent distress. TUBES/LINES/DRAINS: Nasal cannula, right Vas-Cath, Reese catheter, SCDs. SKIN: No jaundice, rashes, or lesions. Ecchymoses on upper extremities. Skin temperature appropriate. Not diaphoretic. multiple necrotic digits bilaterally. HEAD: Atraumatic. Normocephalic. EYES: Pupils equal and round and reactive. No scleral icterus. No injection or drainage. ENT: Hearing grossly normal. Nose without bleeding or purulent drainage. Moist oral mucosa. NECK: Trachea midline. Supple, nontender. CARDIOVASCULAR: Regular rate and rhythm. Peripheral pedal pulses symmetric. Venous stasis changes to bilateral lower extremities. RESPIRATORY/CHEST: Symmetric, unlabored respirations. Coarse breath sounds bilaterally. Tolerating O2 via nasal cannula. GASTROINTESTINAL: Abdomen obese, large, round. Bowel sounds present. GENITOURINARY: Without palpable bladder distension. Resee catheter in place. MUSCULOSKELETAL: Extremities without clubbing. Weeping edema to bilateral upper extremities, right more than left. NEUROLOGICAL: Awake, alert x self. Intermittently confused. More interactive than yesterday. PSYCHIATRIC: Calm. . Diagnostic Tests Laboratory Laboratory Tests Test 12/13/17 03:00 12/13/17 11:11 Phosphorus Level 1.7 MG/DL (2.5-4.9) 1.7 MG/DL (2.5-4.9) White Blood Count 11.3 TH/MM3 (4.0-11.0) Red Blood Count 3.05 MIL/MM3 (4.50-5.90) Hemoglobin 9.3 GM/DL (13.0-17.0) Hematocrit 29.6 % (39.0-51.0) Mean Corpuscular Volume 97.1 FL (80.0-100.0) Mean Corpuscular Hemoglobin 30.4 PG (27.0-34.0) Mean Corpuscular Hemoglobin Concent 31.3 % (32.0-36.0) Red Cell Distribution Width 19.8 % (11.6-17.2) Platelet Count 228 TH/MM3 (150-450) Mean Platelet Volume 10.4 FL (7.0-11.0) Neutrophils (%) (Auto) 84.7 % (16.0-70.0) Lymphocytes (%) (Auto) 5.9 % (9.0-44.0) Monocytes (%) (Auto) 8.0 % (0.0-8.0) Eosinophils (%) (Auto) 0.9 % (0.0-4.0) Basophils (%) (Auto) 0.5 % (0.0-2.0) Neutrophils # (Auto) 9.6 TH/MM3 (1.8-7.7) Lymphocytes # (Auto) 0.7 TH/MM3 (1.0-4.8) Monocytes # (Auto) 0.9 TH/MM3 (0-0.9) Eosinophils # (Auto) 0.1 TH/MM3 (0-0.4) Basophils # (Auto) 0.1 TH/MM3 (0-0.2) CBC Comment DIFF FINAL Differential Comment Blood Urea Nitrogen 33 MG/DL (7-18) Creatinine 4.61 MG/DL (0.60-1.30) Random Glucose 231 MG/DL (74-106) Total Protein 5.5 GM/DL (6.4-8.2) Albumin 2.3 GM/DL (3.4-5.0) Calcium Level 8.8 MG/DL (8.5-10.1) Magnesium Level 2.1 MG/DL (1.5-2.5) Alkaline Phosphatase 178 U/L (45-117) Aspartate Amino Transf (AST/SGOT) 22 U/L (15-37) Alanine Aminotransferase (ALT/SGPT) 11 U/L (12-78) Total Bilirubin 0.6 MG/DL (0.2-1.0) Sodium Level 139 MEQ/L (136-145) Potassium Level 4.2 MEQ/L (3.5-5.1) Chloride Level 101 MEQ/L (98-107) Carbon Dioxide Level 28.0 MEQ/L (21.0-32.0) Anion Gap 10 MEQ/L (5-15) Estimat Glomerular Filtration Rate 13 ML/MIN (>89) Result Diagram: 12/13/17 1111 12/13/17 1111 Procedures * 11/20/17: Left brachial-brachial bypass using vein with interposition graft * 11/21/17: Permacath placement. * 11/20/17: Endotracheal intubation. * 11/22/17: Paracenteses, 6 L removed. * 11/24/17: Medical extubation * 12/03/17: Reintubation * 12/06/17: Medical extubation . Assessment and Plan Disease Oriented Problem List: (1) Sepsis (2) Acute respiratory failure (3) Metabolic encephalopathy (4) ESRD (end stage renal disease) on dialysis (5) Gangrene of finger of left hand Symptom Scale: (1) Pain 0-10 Scale: Unable to quantify Pertinent Non-Medical Issues Psychosocial: Patient is originally from [place]. Moved to [place] 28 years ago. Currently for the past 34 years. Has a total of 4 children, 2 with current . 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 No service. Spiritual: Gnosticism natalia. Legal: Advance directives completed. Ethical issues impacting care: No ethical issues identified. . Important Contacts Son Derrick/[facility] Patient's Jeanine Son Iván . Prognosis Mr. Hernandez is a 67-year-old male with a medical history significant for end- stage renal disease on hemodialysis, CAD status post CABG in 2004, CHF, hypertension, diabetes mellitus. Patient was transferred from [facility] to be evaluated by vascular surgery secondary to occluded left AV fistula at the proximal anastomosis as well as ischemic digits. Clinical course complicated by septic bacteremia, respiratory failure requiring intubation and mechanical ventilation, severe metabolic encephalopathy and hypotension. Patient at a very high risk for further complications, continue decline and . Overall prognosis is guarded at this time. . Code Status: No Code Plan * CODE STATUS: No code. DNR/DNI. Community DNR signed and placed in chart. * HEALTHCARE DECISION-MAKING: Patient unable at this time to participating in medical decision-making secondary to clinical condition, encephalopathy. However, improving. Advanced directives completed, patient has elected her son Derrick as healthcare surrogate decision maker, alternate surrogate is his Jeanine AND son Iván. * GOALS OF CARE: Family elected for aggressive management short of no code, looking into rehabilitation for physical strengthening. Shared concerns with family regarding pt high risk for further complications, continue decline and . Reviewed the future role of hospice services should patient's clinical condition worsen, unable to tolerate rehabilitation, additional complications or increased symptom burden. Family receptive to this. * SYMPTOMS: = Pain, secondary to multiple interventions, lines, necrotic digits , prolonged hospitalization. Oxycodone 5 mg available as needed. None given in the past 24 hours, patient appears comfortable. No recommendations at this time. = Shortness of breath: Patient s/p med extubation. Tolerating O2 via nasal cannula. =Debility: Multifactorial. Secondary to multiple acute on chronic medical issues, prolonged hospitalization. Pending discharge to alf facility for physical strengthening. * Palliative care contact information has been provided to patient's family. * Palliative care will continue to follow-up for further clarifications of goals of care as patient's clinical course continues to evolve. Family receptive to this. . Time Spent Total Floor Time (mins): 33 (Total time to include review medical records, physical exam, goals of care conversation with patient's son Derrick, case discussion with shoe parts caser.) >50% Counseling/Coord of Care: Yes Attestation To help prompt me to consider important information that might be impacting today's encounter and assessment, information from prior notes written by myself or my colleagues may have been "brought forward" into today's note. My signature on this note, however, is an attestation that I personally performed the exam, history, and/or decision-making noted today, and, unless otherwise indicated, the interactions with patient, family, and staff as well as the review of records all occurred today. I also attest that the listed assessment and stated plan reflect my best clinical judgment today based on the combination of historical information, prior notes, and today's exam/ interactions. When time spent is documented, it refers only to time spent today by the signer, or if indicated, combined time spent today by collaborating physician/nurse practitioner. Lisa Saha Dec 14, 2017 16:20
== END 2017-12-14 18:37 | DRG 252 ==
LOC: N04A 19:15 → OBSVTOIN 11-16 14:13 → HCPC 11-20 18:25 → HCVI 11-20 19:30 → HIMW 12-03 09:20
PROVIDERS: ADMIT Hospitalist; ATTEND Hospitalist
PROC: B3101ZZ Fluoroscopy of Thoracic Aorta using Low Osmolar Contrast (ICD-10-PCS; 2017-11-15)
PROC: B31K1ZZ Fluoroscopy of Bilateral Upper Extremity Arteries using Low Osmolar Contrast (ICD-10-PCS; 2017-11-15)
PROC: 5A1D70Z Performance of Urinary Filtration, Intermittent, Less than 6 Hours Per Day (ICD-10-PCS; 2017-11-16)
PROC: 03L80ZZ Occlusion of Left Brachial Artery, Open Approach (ICD-10-PCS; 2017-11-20)
PROC: 5A1945Z Respiratory Ventilation, 24-96 Consecutive Hours (ICD-10-PCS; 2017-11-20)
PROC: 031 Upper Arteries, Bypass (ICD-10-PCS; principal; 2017-11-20 12:18)
PROC: 05BA0ZZ Excision of Left Brachial Vein, Open Approach (ICD-10-PCS; 2017-11-20 12:18)
PROC: 05HM33Z Insertion of Infusion Device into Right Internal Jugular Vein, Percutaneous Approach (ICD-10-PCS; 2017-11-21)
PROC: 06HN33Z Insertion of Infusion Device into Left Femoral Vein, Percutaneous Approach (ICD-10-PCS; 2017-11-21)
PROC: 0W9G3ZX Drainage of Peritoneal Cavity, Percutaneous Approach, Diagnostic (ICD-10-PCS; 2017-11-22)
PROC: 05HM33Z Insertion of Infusion Device into Right Internal Jugular Vein, Percutaneous Approach (ICD-10-PCS; 2017-11-23)
PROC: 0BH17EZ Insertion of Endotracheal Airway into Trachea, Via Natural or Artificial Opening (ICD-10-PCS; 2017-12-03)
PROC: 5A1945Z Respiratory Ventilation, 24-96 Consecutive Hours (ICD-10-PCS; 2017-12-03)
PROC: 02HV33Z Insertion of Infusion Device into Superior Vena Cava, Percutaneous Approach (ICD-10-PCS; 2017-12-04)
DX: T82.898A Other specified complication of vascular prosthetic devices, implants and grafts, initial encounter (principal); R65.21 Severe sepsis with septic shock; J95.821 Acute postprocedural respiratory failure; I13.2 Hypertensive heart and chronic kidney disease with heart failure and with stage 5 chronic kidney disease, or end stage renal disease; G93.41 Metabolic encephalopathy; A41.9 Sepsis, unspecified organism; J15.0 Pneumonia due to Klebsiella pneumoniae; N18.6 End stage renal disease; E44.0 Moderate protein-calorie malnutrition; R18.8 Other ascites; E11.52 Type 2 diabetes mellitus with diabetic peripheral angiopathy with gangrene; I42.9 Cardiomyopathy, unspecified; T80.211A Bloodstream infection due to central venous catheter, initial encounter; E11.22 Type 2 diabetes mellitus with diabetic chronic kidney disease; T82.868A Thrombosis due to vascular prosthetic devices, implants and grafts, initial encounter; I50.9 Heart failure, unspecified; E03.9 Hypothyroidism, unspecified; D63.1 Anemia in chronic kidney disease; K58.0 Irritable bowel syndrome with diarrhea; I25.10 Atherosclerotic heart disease of native coronary artery without angina pectoris; B96.89 Other specified bacterial agents as the cause of diseases classified elsewhere; Y95 Nosocomial condition; L89.159 Pressure ulcer of sacral region, unspecified stage; H10.9 Unspecified conjunctivitis; Z95.1 Presence of aortocoronary bypass graft; Z87.891 Personal history of nicotine dependence; Z95.5 Presence of coronary angioplasty implant and graft; I80.9 Phlebitis and thrombophlebitis of unspecified site; Z99.2 Dependence on renal dialysis; Z16.12 Extended spectrum beta lactamase (ESBL) resistance; Z16.24 Resistance to multiple antibiotics; R13.10 Dysphagia, unspecified; Z79.4 Long term (current) use of insulin; Y83.2 Surgical operation with anastomosis, bypass or graft as the cause of abnormal reaction of the patient, or of later complication, without mention of misadventure at the time of the procedure
CPT/HCPCS: 31500; 36200; 36216; 36556; 36558; 36600; 49083; 70450; 71045; 73130; 74018; 75605; 75716; 76937; 77001; 80048; 80053; 80069; 80202; 82042; 82140; 82150; 82533; 82607; 82805; 82945; 82948; 83036; 83615; 83735; 84100; 84155; 84157; 84439; 84443; 84481; 85007; 85025; 85027; 85384; 85610; 85730; 86850; 86900; 86901; 87040; 87070; 87071; 87077; 87102; 87103; 87186; 87205; 87493; 88112; 88305; 89051; 90935; 93005; 93308; 93970; 93998; 94002; 94003; 94150; 94640; 94664; 94667; 94668; 95819; 96374; 96375; C1729; C1750; C1769; C1887; C1893; C9113; G8987-GP; G8988-GP; J0171; J0461; J0690; J0696; J1100; J1580; J1644; J1815; J2150; J2248; J2250; J2270; J2370; J2543; J2720; J2765; J3010; J3370; J7030; J7040; J7050; J7060; P9047; Q4081; Q9967